=== PATIENT | male | born 1955 | race Caucasian/White ===

== ENCOUNTER 2019-05-08 21:23 | Emergency (ER) | payer MEDICARE ==
--- NOTE | 2019-05-08 21:34 | ED ---
General Adult HPI - General Chief complaint: Seizure Stated complaint: Unresponsive Time Seen by Provider: 05/08/19 21:30 Source: EMS Mode of arrival: EMS Limitations: no limitations - History of Present Illness Initial comments: Romel is a 63yo M presents to the emergency department today via EMS for evaluation of unresponsiveness, hyperglycemia and possible seizure. Upon arrival patient is minimally responsive history was obtained from EMS and the patient's grandson who was staying with the patient. Patient's grandson reported that his grandfather did not take any medications today including his insulin, grandson has a type I diabetic brother so is familiar with patient's need to take insulin 3 times daily. Grandson reported that he witnessed his grandpa having a shaking episode and he couldn't wake him up at which time he ran to the neighbor's house to call 911. EMS arrived on scene found the patient to be minimally responsive but breathing with oxygen saturations in the high 90s, leukocytosis read as high. In route to the hospital patient had a witnessed tonic-clonic seizure with loss of bowel or bladder continence. Per daughter, they moved the patient from [place] to [place] last week so she could keep an eye on his medical care due to his history of non-compliance. - Related Data Allergies Allergy/AdvReac Type Severity Reaction Status Date / Time No Known Allergies Allergy Verified 05/08/19 23:45 Review of Systems ROS Statement: Those systems with pertinent positive or pertinent negative responses have been documented in the HPI. ROS Other: All systems not noted in ROS Statement are negative. Past Medical History Past Medical History: Diabetes Mellitus, Seizure Disorder History of Any Multi-Drug Resistant Organisms: Unobtainable Past Surgical History: Unable to Obtain Past Psychological History: Unable to Obtain Smoking Status: Unknown if ever smoked Past Alcohol Use History: Unable to Obtain Past Drug Use History: Unable to Obtain General Exam - General Exam Comments Initial Comments: Physical Exam GENERAL: Responds to pain with eye opening Dried blood around mouth, incontinent of bowel and bladder HENT: Normocephalic, Atraumatic. Evidence of tongue biting EYES: Right pupil 4mm, left 3mm, reactive EOMI PULMONARY: Unlabored respirations. No audible rales rhonchi or wheezing was noted. CARDIOVASCULAR: RRR ABDOMEN: Obese, Soft and nontender with normal bowel sounds. SKIN: Dry skin, increased skin turgor : Normal external genitalia NEUROLOGIC: A&Ox0 GCS 9 - Eye - 2 - Verbal - 2 - Motor - 5 Moving all extremities spontaneously MUSCULOSKELETAL: No apparent injury PSYCHIATRIC: Unable to assess Limitations: no limitations Course Vital Signs 05/08/19 05/08/19 05/08/19 21:25 22:21 23:04 Temperature 98 F Pulse Rate 108 H 92 93 Respiratory 16 16 18 Rate Blood Pressure 211/122 233/124 209/110 O2 Sat by Pulse 100 98 99 Oximetry 05/08/19 05/08/19 05/09/19 23:24 23:39 00:29 Temperature 98.1 F Pulse Rate 80 78 74 Respiratory 20 16 16 Rate Blood Pressure 198/105 206/101 203/104 O2 Sat by Pulse 98 98 98 Oximetry EKG Findings - EKG Comments: EKG Findings:: EKG was obtained due to tachycardia and new-onset seizure, EKG obtained at 2131, rate is 107 rhythm is sinus tach, leftward axis, normal intervals, RI 150, Carrison a 4, QTC 515, no acute ST elevations or depressions no evidence of acute ischemia or infarction. Medical Decision Making - Medical Decision Making Patient was seen and evaluated, history is obtained from EMS, family members Noncompliant diabetic with hyperglycemia and new onset seizure Plan of care glucose upon arrival >600 Patient initially somewhat agitated with evaluation, fighting IV placement. 1 mg IV Ativan was ordered for agitation the likely postictal state Labs as well as CT imaging was obtained Labs are consistent with DKA with hyperglycemia and high anion gap metabolic acidosis Patient also has a lactic acidosis likely secondary to seizure activity 3 L of IV fluid were bolused, patient's initial potassium was 4.0 therefore nor mal saline with potassium was ordered as maintenance IV insulin ordered for treatment of DKA Patient's mental status improving now awake and alert and oriented to person and place, somewhat confused about events leading up to hospitalization as well as date and time Head CT results with no acute findings Patient care was discussed with admitting physician however given that the patient had a new onset seizure he recommends transfer to a facility with neurology available Patient care was discussed with at [facility] who accepts transfer Patient given Lopressor 5mg IV for hypertension Patient remained hypertensive, patient complaining of diffuse muscle pain, 4 of morphine was ordered and given however patient continued to complain of pain and remained hypertensive Additional 5 mg of IV Lopressor were given for persistent hypertension, patient is on oral oxycodone at home therefore 1 mg IV Dilaudid will be given for pain - Lab Data Result diagrams: 05/08/19 21:32 05/08/19 21:32 Lab Results 05/08/19 05/08/19 05/08/19 Range/Units 21:32 21:32 21:32 WBC 7.2 (3.8-10.6) k/uL RBC 5.36 (4.30-5.90) m/uL Hgb 15.2 (13.0-17.5) gm/dL Hct 48.5 (39.0-53.0) % MCV 90.6 (80.0-100.0) fL MCH 28.3 (25.0-35.0) pg MCHC 31.2 (31.0-37.0) g/dL RDW 13.6 (11.5-15.5) % Plt Count 185 (150-450) k/uL Neutrophils % 70 % Lymphocytes % 21 % Monocytes % 4 % Eosinophils % 2 % Basophils % 0 % Neutrophils # 5.1 (1.3-7.7) k/uL Lymphocytes # 1.5 (1.0-4.8) k/uL Monocytes # 0.3 (0-1.0) k/uL Eosinophils # 0.2 (0-0.7) k/uL Basophils # 0.0 (0-0.2) k/uL Hypochromasia Slight PT 9.6 (9.0-12.0) sec INR 0.9 (<1.2) APTT 23.4 (22.0-30.0) sec Sample Site ABG pH (7.35-7.45) ABG pCO2 (35-45) mmHg ABG pO2 (83-108) mmHg ABG HCO3 (21-25) mmol/L ABG Total CO2 (19-24) mmol/L ABG O2 Saturation (94-97) % ABG Base Excess mmol/L Elan Test FiO2 % Sodium 134 L (137-145) mmol/L Potassium 4.0 (3.5-5.1) mmol/L Chloride 94 L (98-107) mmol/L Carbon Dioxide 18 L (22-30) mmol/L Anion Gap 22 mmol/L BUN 13 (9-20) mg/dL Creatinine 0.79 (0.66-1.25) mg/dL Est GFR (CKD-EPI)AfAm >90 (>60 ml/min/1.73 sqM) Est GFR (CKD-EPI)NonAf >90 (>60 ml/min/1.73 sqM) Glucose 727 H* (74-99) mg/dL POC Glucose (mg/dL) (75-99) mg/dL POC Glu [employer] ID Osmolality 322 H (280-301) mosm/kg Lactic Ac Sepsis Rflx Plasma Lactic Acid Garcia (0.7-2.0) mmol/L Calcium 8.8 (8.4-10.2) mg/dL Magnesium 2.4 H (1.6-2.3) mg/dL Total Bilirubin 0.4 (0.2-1.3) mg/dL AST 29 (17-59) U/L ALT 20 (4-49) U/L Alkaline Phosphatase 162 H (38-126) U/L Creatine Kinase 56 (55-170) U/L Troponin I (0.000-0.034) ng/mL Total Protein 6.8 (6.3-8.2) g/dL Albumin 4.1 (3.5-5.0) g/dL Urine Color Urine Appearance (Clear) Urine pH (5.0-8.0) Ur Specific [place] (1.001-1.035) Urine Protein (Negative) Urine Glucose (UA) (Negative) Urine Ketones (Negative) Urine Blood (Negative) Urine Nitrite (Negative) Urine Bilirubin (Negative) Urine Urobilinogen (<2.0) mg/dL Ur Leukocyte Esterase (Negative) Urine RBC (0-5) /hpf Urine WBC (0-5) /hpf Urine Bacteria (None) /hpf Urine Mucus (None) /hpf 05/08/19 05/08/19 05/08/19 Range/Units 21:32 21:32 21:36 WBC (3.8-10.6) k/uL RBC (4.30-5.90) m/uL Hgb (13.0-17.5) gm/dL Hct (39.0-53.0) % MCV (80.0-100.0) fL MCH (25.0-35.0) pg MCHC (31.0-37.0) g/dL RDW (11.5-15.5) % Plt Count (150-450) k/uL Neutrophils % % Lymphocytes % % Monocytes % % Eosinophils % % Basophils % % Neutrophils # (1.3-7.7) k/uL Lymphocytes # (1.0-4.8) k/uL Monocytes # (0-1.0) k/uL Eosinophils # (0-0.7) k/uL Basophils # (0-0.2) k/uL Hypochromasia PT (9.0-12.0) sec INR (<1.2) APTT (22.0-30.0) sec Sample Site rrad ABG pH 7.24 L (7.35-7.45) ABG pCO2 45 (35-45) mmHg ABG pO2 137 H (83-108) mmHg ABG HCO3 19 L (21-25) mmol/L ABG Total CO2 21 (19-24) mmol/L ABG O2 Saturation 98.0 H (94-97) % ABG Base Excess -7.9 mmol/L Elan Test Yes FiO2 40 % Sodium (137-145) mmol/L Potassium (3.5-5.1) mmol/L Chloride (98-107) mmol/L Carbon Dioxide (22-30) mmol/L Anion Gap mmol/L BUN (9-20) mg/dL Creatinine (0.66-1.25) mg/dL Est GFR (CKD-EPI)AfAm (>60 ml/min/1.73 sqM) Est GFR (CKD-EPI)NonAf (>60 ml/min/1.73 sqM) Glucose (74-99) mg/dL POC Glucose (mg/dL) (75-99) mg/dL POC Glu [employer] ID Osmolality (280-301) mosm/kg Lactic Ac Sepsis Rflx Plasma Lactic Acid Garcia 11.1 H* (0.7-2.0) mmol/L Calcium (8.4-10.2) mg/dL Magnesium (1.6-2.3) mg/dL Total Bilirubin (0.2-1.3) mg/dL AST (17-59) U/L ALT (4-49) U/L Alkaline Phosphatase (38-126) U/L Creatine Kinase (55-170) U/L Troponin I <0.012 (0.000-0.034) ng/mL Total Protein (6.3-8.2) g/dL Albumin (3.5-5.0) g/dL Urine Color Urine Appearance (Clear) Urine pH (5.0-8.0) Ur Specific [place] (1.001-1.035) Urine Protein (Negative) Urine Glucose (UA) (Negative) Urine Ketones (Negative) Urine Blood (Negative) Urine Nitrite (Negative) Urine Bilirubin (Negative) Urine Urobilinogen (<2.0) mg/dL Ur Leukocyte Esterase (Negative) Urine RBC (0-5) /hpf Urine WBC (0-5) /hpf Urine Bacteria (None) /hpf Urine Mucus (None) /hpf 05/08/19 05/08/19 05/08/19 Range/Units 21:37 22:11 22:20 WBC (3.8-10.6) k/uL RBC (4.30-5.90) m/uL Hgb (13.0-17.5) gm/dL Hct (39.0-53.0) % MCV (80.0-100.0) fL MCH (25.0-35.0) pg MCHC (31.0-37.0) g/dL RDW (11.5-15.5) % Plt Count (150-450) k/uL Neutrophils % % Lymphocytes % % Monocytes % % Eosinophils % % Basophils % % Neutrophils # (1.3-7.7) k/uL Lymphocytes # (1.0-4.8) k/uL Monocytes # (0-1.0) k/uL Eosinophils # (0-0.7) k/uL Basophils # (0-0.2) k/uL Hypochromasia PT (9.0-12.0) sec INR (<1.2) APTT (22.0-30.0) sec Sample Site ABG pH (7.35-7.45) ABG pCO2 (35-45) mmHg ABG pO2 (83-108) mmHg ABG HCO3 (21-25) mmol/L ABG Total CO2 (19-24) mmol/L ABG O2 Saturation (94-97) % ABG Base Excess mmol/L Elan Test FiO2 % Sodium (137-145) mmol/L Potassium (3.5-5.1) mmol/L Chloride (98-107) mmol/L Carbon Dioxide (22-30) mmol/L Anion Gap mmol/L BUN (9-20) mg/dL Creatinine (0.66-1.25) mg/dL Est GFR (CKD-EPI)AfAm (>60 ml/min/1.73 sqM) Est GFR (CKD-EPI)NonAf (>60 ml/min/1.73 sqM) Glucose (74-99) mg/dL POC Glucose (mg/dL) >600 H (75-99) mg/dL POC Glu [employer] ID Alecia De La Rosa Osmolality (280-301) mosm/kg Lactic Ac Sepsis Rflx Y Plasma Lactic Acid Garcia (0.7-2.0) mmol/L Calcium (8.4-10.2) mg/dL Magnesium (1.6-2.3) mg/dL Total Bilirubin (0.2-1.3) mg/dL AST (17-59) U/L ALT (4-49) U/L Alkaline Phosphatase (38-126) U/L Creatine Kinase (55-170) U/L Troponin I (0.000-0.034) ng/mL Total Protein (6.3-8.2) g/dL Albumin (3.5-5.0) g/dL Urine Color Colorless Urine Appearance Clear (Clear) Urine pH 6.0 (5.0-8.0) Ur Specific [place] 1.031 (1.001-1.035) Urine Protein 2+ H (Negative) Urine Glucose (UA) 4+ H (Negative) Urine Ketones Trace H (Negative) Urine Blood Negative (Negative) Urine Nitrite Negative (Negative) Urine Bilirubin Negative (Negative) Urine Urobilinogen <2.0 (<2.0) mg/dL Ur Leukocyte Esterase Negative (Negative) Urine RBC 1 (0-5) /hpf Urine WBC 1 (0-5) /hpf Urine Bacteria Rare H (None) /hpf Urine Mucus Rare H (None) /hpf 05/08/19 Range/Units 23:43 WBC (3.8-10.6) k/uL RBC (4.30-5.90) m/uL Hgb (13.0-17.5) gm/dL Hct (39.0-53.0) % MCV (80.0-100.0) fL MCH (25.0-35.0) pg MCHC (31.0-37.0) g/dL RDW (11.5-15.5) % Plt Count (150-450) k/uL Neutrophils % % Lymphocytes % % Monocytes % % Eosinophils % % Basophils % % Neutrophils # (1.3-7.7) k/uL Lymphocytes # (1.0-4.8) k/uL Monocytes # (0-1.0) k/uL Eosinophils # (0-0.7) k/uL Basophils # (0-0.2) k/uL Hypochromasia PT (9.0-12.0) sec INR (<1.2) APTT (22.0-30.0) sec Sample Site ABG pH (7.35-7.45) ABG pCO2 (35-45) mmHg ABG pO2 (83-108) mmHg ABG HCO3 (21-25) mmol/L ABG Total CO2 (19-24) mmol/L ABG O2 Saturation (94-97) % ABG Base Excess mmol/L Elan Test FiO2 % Sodium (137-145) mmol/L Potassium (3.5-5.1) mmol/L Chloride (98-107) mmol/L Carbon Dioxide (22-30) mmol/L Anion Gap mmol/L BUN (9-20) mg/dL Creatinine (0.66-1.25) mg/dL Est GFR (CKD-EPI)AfAm (>60 ml/min/1.73 sqM) Est GFR (CKD-EPI)NonAf (>60 ml/min/1.73 sqM) Glucose (74-99) mg/dL POC Glucose (mg/dL) 448 H (75-99) mg/dL POC Glu [employer] ID Vera Avila Osmolality (280-301) mosm/kg Lactic Ac Sepsis Rflx Plasma Lactic Acid Garcia (0.7-2.0) mmol/L Calcium (8.4-10.2) mg/dL Magnesium (1.6-2.3) mg/dL Total Bilirubin (0.2-1.3) mg/dL AST (17-59) U/L ALT (4-49) U/L Alkaline Phosphatase (38-126) U/L Creatine Kinase (55-170) U/L Troponin I (0.000-0.034) ng/mL Total Protein (6.3-8.2) g/dL Albumin (3.5-5.0) g/dL Urine Color Urine Appearance (Clear) Urine pH (5.0-8.0) Ur Specific [place] (1.001-1.035) Urine Protein (Negative) Urine Glucose (UA) (Negative) Urine Ketones (Negative) Urine Blood (Negative) Urine Nitrite (Negative) Urine Bilirubin (Negative) Urine Urobilinogen (<2.0) mg/dL Ur Leukocyte Esterase (Negative) Urine RBC (0-5) /hpf Urine WBC (0-5) /hpf Urine Bacteria (None) /hpf Urine Mucus (None) /hpf Critical Care Time Critical Care Time: Yes Total Critical Care Time: 30 Critical Care Time: Critical care time was exclusive of separately billable procedures and treating other patients and teaching time. Critical care was necessary to treat or prevent imminent or life-threatening deterioration. Given the critical condition in which the patient arrived, the patient was immediately assessed by myself and the nurse, and cardiac monitoring initiated d ue to the potential for rapid decompensation of the patient's clinical condition. During the course of the patients stay, I spent a considerable amount of time at the bedside performing serial re-evaluations of the patient's hemodynamic and clinical status because of the recognized potential threat to life or limb in this condition. I then had a chance to review not only all of the available current laboratory and radiographic studies obtained today, but I also reviewed old records available to me at the time. Additionally, any ancillary information available including cigarette tester records were reviewed. Sequential vital signs were obtained. Disposition Clinical Impression: DKA (diabetic ketoacidoses), New onset seizure Disposition: OTHER INSTITUTION NOT DEFINED Condition: Serious Is patient prescribed a controlled substance at d/c from ED?: No Referrals: None,Stated [Primary Care Provider] - 1-2 days - Out of Hospital Transfer - Req. Specs Out of Hospital Transfer - Requested Specifics: Other Emergency Center ([facility]
[2019-05-08 21:38] LABS: ABG Base Excess -7.9 mmol/L; ABG HCO3 19 mmol/L (21-25); ABG PCO2 45 mmHg (35-45); ABG PH 7.24 (7.35-7.45); ABG PO2 137 mmHg (83-108); ABG TCO2 21 mmol/L (19-24); Allen Test Performed? Yes
[2019-05-08] MEDS ORDERED: LORazepam 2 MG/ML INJ ONE (21:38)
[2019-05-08 21:40] LABS: Glucose,Whole Blood >600 mg/dL (75-99)
[2019-05-08] MEDS: SODIUM CHLORIDE 0.9% 500 ML 500 ML IV SCH ×2 (21:41→21:42)
[2019-05-08] MEDS ORDERED: LORazepam 2 MG/ML INJ IV STA (21:41)
[2019-05-08] MEDS ORDERED: SODIUM CHLORIDE 0.9% 1,000 ML IV SCH ×2 (21:45→22:30)
[2019-05-08 21:47] LABS: Basophils % (A) 0 %; Eosinophils # (A) 0.2 k/uL (0-0.7); Eosinophils % (A) 2 %; HCT 48.5 % (39.0-53.0); HGB 15.2 gm/dL (13.0-17.5); Hypochromasia Slight; Lymphocytes # (A) 1.5 k/uL (1.0-4.8); Lymphocytes % (A) 21 %; MCH 28.3 pg (25.0-35.0); MCHC 31.2 g/dL (31.0-37.0); MCV 90.6 fL (80.0-100.0); Mean Platelet Volume 9.6; Monocytes # (A) 0.3 k/uL (0-1.0); Monocytes % (A) 4 %; Neutrophils # (A) 5.1 k/uL (1.3-7.7); Neutrophils % (A) 70 %; Platelet Count 185 k/uL (150-450); RBC 5.36 m/uL (4.30-5.90); RDW 13.6 % (11.5-15.5); WBC 7.2 k/uL (3.8-10.6)
[2019-05-08 21:59] LABS: AST 29 U/L (17-59); African American GFR (CKD) >90 (>60 ml/min/1.73 sqM); Albumin 4.1 g/dL (3.5-5.0); Alkaline Phosphatase 162 U/L (38-126); Anion Gap 22 mmol/L; Blood Urea Nitrogen 13 mg/dL (9-20); Calcium 8.8 mg/dL (8.4-10.2); Carbon Dioxide 18 mmol/L (22-30); Chloride 94 mmol/L (98-107); Creatine Kinase 56 U/L (55-170); Magnesium 2.4 mg/dL (1.6-2.3); Non-African American GFR(CKD) >90 (>60 ml/min/1.73 sqM); Sodium 134 mmol/L (137-145); Total Bilirubin 0.4 mg/dL (0.2-1.3); Total Protein 6.8 g/dL (6.3-8.2)
--- NOTE | 2019-05-08 22:02 | XR ---
EXAMINATION TYPE: XR chest 1V portable DATE OF EXAM: 05/08/2019 COMPARISON: None INDICATION: Fever TECHNIQUE: Single frontal view of the chest is obtained. FINDINGS: The heart size is normal. The pulmonary vasculature is normal. The lungs are clear. IMPRESSION: 1. No acute pulmonary process.
[2019-05-08 22:06] LABS: INR 0.9 (<1.2); Partial Thromboplastin Time 23.4 sec (22.0-30.0); Prothrombin Time 9.6 sec (9.0-12.0)
[2019-05-08 22:07] LABS: ALT 20 U/L (4-49)
--- NOTE | 2019-05-08 22:09 | CT ---
EXAMINATION TYPE: CT brain wo con DATE OF EXAM: 05/08/2019 COMPARISON: None HISTORY: Pt found unresponsive, new onset seizure. CT DLP: 1158.4 mGycm Automated exposure control for dose reduction was used. There is cerebral cortical atrophy. There is no mass effect nor midline shift. There is no sign of in tracranial hemorrhage. Calvarium is intact. IMPRESSION: Cerebral atrophy. No acute intracranial abnormality.
[2019-05-08 22:11] LABS: Glucose 727 mg/dL (74-99)
[2019-05-08] MEDS ORDERED: Potassium Replacement Protocol 1 EACH MISC MISCELLANE PRN (22:16)
[2019-05-08] MEDS ORDERED: Magnesium Replacement Protocol 1 EACH MISC MISCELLANE PRN (22:16)
[2019-05-08] MEDS ORDERED: SODIUM CHLORIDE 0.9% 1,500 ML IV ONE (22:19)
[2019-05-08] MEDS ORDERED: D5-0.45% NACL WITH KCL 20MEQ/L 1,000 ML IV SCH (22:30)
[2019-05-08] MEDS ORDERED: 0.9% NACL WITH KCL 40 MEQ/L 1,000 ML IV SCH (22:30)
[2019-05-08] MEDS ORDERED: INSULIN REGULAR 100 UNIT in SODIUM CHLORIDE 0.9% 100 ML IV SCH (22:30)
[2019-05-08 22:34] LABS: Appearance,Urine Clear (Clear); Bacteria,Urine Rare /hpf; Bilirubin,Urine Negative (Negative); Blood,Urine Negative (Negative); Color,Urine Colorless; Glucose,Urine (UA) 4+ (Negative); Ketones,Urine Trace (Negative); Leukocyte Esterase,Urine Negative (Negative); Mucus,Urine Rare /hpf; Nitrite,Urine Negative (Negative); Protein,Urine 2+ (Negative); RBC,Urine 1 /hpf (0-5); Specific Gravity,Urine 1.031 (1.001-1.035); Urobilinogen,Urine <2.0 mg/dL (<2.0); WBC,Urine 1 /hpf (0-5)
[2019-05-08] MEDS ORDERED: METOPROLOL TARTRATE 5 MG/5 ML VIAL IVP STA ×2 (23:10→23:59)
[2019-05-08] MEDS ORDERED: MORPHINE SULFATE 4 MG/ML SYRINGE IVP STA (23:21)
[2019-05-08 23:40] VITALS: RESP 16
[2019-05-08 23:44] LABS: Glucose,Whole Blood 448 mg/dL (75-99)
[2019-05-08] MEDS ORDERED: HYDROmorphone 1 MG/ML 1 ML SYRINGE IVP STA (23:58)
[2019-05-09] MEDS ORDERED: METOPROLOL TARTRATE 5 MG/5 ML VIAL IVP ONE (00:06)
[2019-05-09] MEDS ORDERED: HYDROmorphone 1 MG/ML 1 ML SYRINGE ONE (00:06)
[2019-05-09 00:31] VITALS: BP 203/104; PULSE 74; TEMP 98.1
== END 2019-05-09 00:30 | disposition other institution (70) ==
LOC: EC 21:23
DX: E10.10 Type 1 diabetes mellitus with ketoacidosis without coma (principal); G40.909 Epilepsy, unspecified, not intractable, without status epilepticus; Z91.19 Patient's noncompliance with other medical treatment and regimen; R45.1 Restlessness and agitation; I10 Essential (primary) hypertension; M79.10 Myalgia, unspecified site; Z79.4 Long term (current) use of insulin
CPT/HCPCS: 36415; 36600; 93005; 83930; 80053; 82550; 82805; 83605; 83735; 84484; 85025; 85610; 85730; 81001; 87040; 71045; 70450; 99291; 96365; 96375 ×4; 96376; 96361; J2060; J2270; J1170

== ENCOUNTER 2021-09-13 09:44 | Emergency (ER) | payer MEDICARE ==
[2021-09-13 09:54] VITALS: BP 175/92; PULSE 78; RESP 18; TEMP 98.2
[2021-09-13] MEDS ORDERED: HYDROmorphone 0.5 MG/0.5 ML SYRINGE IVP STA (11:36)
--- NOTE | 2021-09-13 11:42 | ED ---
Extremity Problem HPI - General Chief complaint: Extremity Problem,Nontraumatic Stated complaint: Lt foot Pain Time Seen by Provider: 09/13/21 11:30 Source: patient, family, RN notes reviewed, old records reviewed Mode of arrival: ambulatory Limitations: no limitations - History of Present Illness Initial comments: 65-year-old male presents with complaints of redness and drainage at the amputation site of his first metatarsal left foot for one week. Patient denies any fevers, no nausea vomiting or diarrhea. He states he does have generalized body pain 10 out of 10 they takes pain medication for at home MD Complaint: other (Left great metatarsal amputation site redness and drainage) -: week(s) (1) Location: left, lower extremity (first metatarsal stump) Radiation: none Severity scale (1-10): 10 (Chronic generalized pain, no pain at the first metatarsal) Quality: aching - Related Data Previous Rx's Medication Instructions Recorded Cephalexin [Keflex] 500 mg PO Q6HR 7 Days #28 cap 09/13/21 Allergies Allergy/AdvReac Type Severity Reaction Status Date / Time No Known Allergies Allergy Verified 09/13/21 09:54 Review of Systems ROS Statement: Those systems with pertinent positive or pertinent negative responses have been documented in the HPI. ROS Other: All systems not noted in ROS Statement are negative. Past Medical History Past Medical History: Coronary Artery Disease (CAD), Diabetes Mellitus, Myocardial Infarction (ND), Seizure Disorder History of Any Multi-Drug Resistant Organisms: Unobtainable Past Surgical History: Heart Catheterization With Stent Additional Past Surgical History / Comment(s): shyla big toe removal Past Psychological History: Unable to Obtain Smoking Status: Never smoker Past Alcohol Use History: None Reported Past Drug Use History: None Reported General Exam Limitations: no limitations General appearance: alert, in no apparent distress Neck exam: Absent: tenderness, meningismus Respiratory exam: Absent: respiratory distress, accessory muscle use Cardiovascular Exam: Present: regular rate Extremities exam: Present: other (Bilateral lower extremity swelling are pink warm and dry. There is some discoloration noted bilaterally chronic). Absent: calf tenderness Back exam: Present: normal inspection. Absent: tenderness, CVA tenderness (R), CVA tenderness (L), rash noted Neurological exam: Present: alert, oriented X3 Psychiatric exam: Present: normal affect, normal mood Skin exam: Present: warm, dry. Absent: cyanosis, diaphoretic, petechiae Course Vital Signs 09/13/21 09:51 Temperature 98.2 F Pulse Rate 78 Respiratory 18 Rate Blood Pressure 175/92 O2 Sat by Pulse 97 Oximetry Medical Decision Making - Medical Decision Making Patient presents with left lower extremity stump wound for one week with redness, drainage and foul smell. Positive pedal pulses bilaterally and equal. He denies any fevers. No nausea or vomiting. He does have history of diabetes. No evidence of leukocytosis. No evidence of osteomyelitis. Patient has been afebrile. He was prescribed Keflex and directed to follow up with his primary care doctor next week. Patient and family are agreeable to this plan of care. Case discussed with Dr. Matthew. - Lab Data Result diagrams: 09/13/21 12:19 09/13/21 12:19 Lab Results 09/13/21 09/13/21 Range/Units 12:19 12:19 WBC 6.5 (3.8-10.6) k/uL RBC 3.38 L (4.30-5.90) m/uL Hgb 10.5 L (13.0-17.5) gm/dL Hct 30.3 L (39.0-53.0) % MCV 89.5 (80.0-100.0) fL MCH 31.1 (25.0-35.0) pg MCHC 34.7 (31.0-37.0) g/dL RDW 14.7 (11.5-15.5) % Plt Count 181 (150-450) k/uL MPV 8.7 Neutrophils % 77 % Lymphocytes % 14 % Monocytes % 6 % Eosinophils % 2 % Basophils % 0 % Neutrophils # 5.0 (1.3-7.7) k/uL Lymphocytes # 0.9 L (1.0-4.8) k/uL Monocytes # 0.4 (0-1.0) k/uL Eosinophils # 0.1 (0-0.7) k/uL Basophils # 0.0 (0-0.2) k/uL Poikilocytosis Slight Sodium 140 (137-145) mmol/L Potassium 3.5 (3.5-5.1) mmol/L Chloride 105 (98-107) mmol/L Carbon Dioxide 26 (22-30) mmol/L Anion Gap 9 mmol/L BUN 9 (9-20) mg/dL Creatinine 0.79 (0.66-1.25) mg/dL Est GFR (CKD-EPI)AfAm >90 (>60 ml/min/1.73 sqM) Est GFR (CKD-EPI)NonAf >90 (>60 ml/min/1.73 sqM) Glucose 185 H (74-99) mg/dL Calcium 8.2 L (8.4-10.2) mg/dL Total Bilirubin 0.5 (0.2-1.3) mg/dL AST 19 (17-59) U/L ALT 11 (4-49) U/L Alkaline Phosphatase 100 (38-126) U/L Total Protein 5.7 L (6.3-8.2) g/dL Albumin 3.2 L (3.5-5.0) g/dL Disposition Clinical Impression: Foot ulcer Disposition: HOME SELF-CARE Condition: Good Instructions (If sedation given, give patient instructions): Foot Care for People with Diabetes (ED), Diabetic Foot Ulcers (ED) Additional Instructions: Take antibiotics as prescribed and follow-up with the primary care doctor next week. Return to the emergency room with any new or concerning symptoms including increased pain or fevers. Prescriptions: Cephalexin [Keflex] 500 mg PO Q6HR 7 Days #28 cap Is patient prescribed a controlled substance at d/c from ED?: No Referrals: Yaneth Hernandez NPC [Family Provider] - 1-2 days Time of Disposition: 13:31
[2021-09-13 12:44] LABS: ALT 11 U/L (4-49); AST 19 U/L (17-59); African American GFR (CKD) >90 (>60 ml/min/1.73 sqM); Albumin 3.2 g/dL (3.5-5.0); Alkaline Phosphatase 100 U/L (38-126); Anion Gap 9 mmol/L; Blood Urea Nitrogen 9 mg/dL (9-20); Calcium 8.2 mg/dL (8.4-10.2); Carbon Dioxide 26 mmol/L (22-30); Chloride 105 mmol/L (98-107); Glucose 185 mg/dL (74-99); Non-African American GFR(CKD) >90 (>60 ml/min/1.73 sqM); Potassium 3.5 mmol/L (3.5-5.1); Sodium 140 mmol/L (137-145); Total Bilirubin 0.5 mg/dL (0.2-1.3); Total Protein 5.7 g/dL (6.3-8.2)
[2021-09-13 12:50] LABS: Basophils % (A) 0 %; Eosinophils # (A) 0.1 k/uL (0-0.7); Eosinophils % (A) 2 %; HCT 30.3 % (39.0-53.0); HGB 10.5 gm/dL (13.0-17.5); Lymphocytes # (A) 0.9 k/uL (1.0-4.8); Lymphocytes % (A) 14 %; MCH 31.1 pg (25.0-35.0); MCHC 34.7 g/dL (31.0-37.0); MCV 89.5 fL (80.0-100.0); Mean Platelet Volume 8.7; Monocytes # (A) 0.4 k/uL (0-1.0); Monocytes % (A) 6 %; Neutrophils % (A) 77 %; Platelet Count 181 k/uL (150-450); Poikilocytosis Slight; RBC 3.38 m/uL (4.30-5.90); RDW 14.7 % (11.5-15.5); WBC 6.5 k/uL (3.8-10.6)
--- NOTE | 2021-09-13 13:18 | XR ---
EXAMINATION TYPE: XR foot complete LT DATE OF EXAM: 09/13/2021 CLINICAL HISTORY: pain TECHNIQUE: Frontal, lateral and oblique images of the left foot are obtained. COMPARISON: None. FINDINGS: There is no acute fracture/dislocation evident. The joint spaces appear within normal becker its. There appears to be soft tissue ulceration at the amputation stump left great toe. I do not see definite bony destructive process to suggest osteomyelitis at this time. Symptoms persist consider a WBC scan. Healed fracture second metatarsal neck. IMPRESSION: There is no acute fracture or dislocation. ICD 10 NO FRACTURE, INITIAL EVALUATION
== END 2021-09-13 13:57 | disposition home or self-care (01) ==
LOC: EC 09:44
DX: L97.529 Non-pressure chronic ulcer of other part of left foot with unspecified severity (principal); E11.9 Type 2 diabetes mellitus without complications; I25.2 Old myocardial infarction
CPT/HCPCS: 36415; 80053; 85025; 87040; 87070; 87205; 73630; 99283; 96374; J1170

== ENCOUNTER → 2022-03-12 | Outpatient (CLI) | payer MEDICARE | END | disposition home or self-care (01) | LOC: RADUSWWP 14:25 | PROVIDERS: ATTEND Thoracic Surgery (Cardiothoracic Vascular Surgery) | DX: Z53.9 Procedure and treatment not carried out, unspecified reason (principal) ==

== ENCOUNTER 2022-06-08 09:24 | Emergency (ER) | payer MEDICARE ==
[2022-06-08] MEDS ORDERED: SODIUM CHLORIDE 0.9% 500 ML 500 ML IV STA (09:33)
[2022-06-08 09:36] VITALS: TEMP 97.8
--- NOTE | 2022-06-08 09:43 | ED ---
General Adult HPI - General Chief complaint: Fall Stated complaint: diabetic issues, fall Time Seen by Provider: 06/08/22 09:30 Source: patient, EMS, RN notes reviewed, old records reviewed Mode of arrival: EMS Limitations: no limitations - History of Present Illness Initial comments: This is a 66-year-old male who presents emergency Department with a past medical history significant for amputated toes and has history of diabetes. Patient states he also has bilateral ankle issues. Patient states she is supposed to use a walker but this morning his walk was too far away as we got up and tried to go out the door and fell back hitting his head on a cabinet and then hit his head on the floor. Patient denies any loss of consciousness. Patient denies any headache currently. Patient denies any numbness weakness. Patient denies any neck pain. Patient states he was not having any chest pain difficulty breathing or shortness of breath per patient states he just felt his legs go weak and he lost his balance. Patient does agree that he should probably using his walker. Patient denies any recent fever chills or cough per patient has abdominal pain patient denies nausea vomiting diarrhea. - Related Data Previous Rx's Medication Instructions Recorded Cephalexin [Keflex] 500 mg PO Q6HR 7 Days #28 cap 09/13/21 Allergies Allergy/AdvReac Type Severity Reaction Status Date / Time No Known Allergies Allergy Verified 06/08/22 09:30 Review of Systems ROS Statement: Those systems with pertinent positive or pertinent negative responses have been documented in the HPI. ROS Other: All systems not noted in ROS Statement are negative. Past Medical History Past Medical History: Coronary Artery Disease (CAD), Diabetes Mellitus, Myocardial Infarction (OR), Seizure Disorder History of Any Multi-Drug Resistant Organisms: Unobtainable Past Surgical History: Heart Catheterization With Stent Additional Past Surgical History / Comment(s): shyla big toe removal Past Psychological History: Unable to Obtain Smoking Status: Never smoker Past Alcohol Use History: None Reported Past Drug Use History: None Reported General Exam - General Exam Comments Initial Comments: GENERAL: Patient is well-developed and well-nourished. Patient is nontoxic and well- hydrated and is in no acute distress. No signs of any abrasions or trauma to the head. ENT: Neck is soft and supple. No significant lymphadenopathy is noted. Oropharynx is clear. Moist mucous membranes. Neck has full range of motion without eliciting any pain. No spinous process tenderness on palpation EYES: The sclera were anicteric and conjunctiva were pink and moist. Extraocular movements were intact and pupils were equal round and reactive to light. Eyelids were unremarkable. PULMONARY: Unlabored respirations. Good breath sounds bilaterally. No audible rales rhonchi or wheezing was noted. CARDIOVASCULAR: There is a regular rate and rhythm without any murmurs gallops or rubs. ABDOMEN: Soft and nontender with normal bowel sounds. SKIN: Skin is clear with no lesions or rashes and otherwise unremarkable. NEUROLOGIC: Patient is alert and oriented x3. Cranial nerves II through XII are grossly intact. Motor and sensory are also intact. Normal speech, volume and content. Symmetrical smile. MUSCULOSKELETAL: Normal extremities with adequate strength and full range of motion. Patient has ankles which appear to be deformed which he states is chronic. LYMPHATICS: No significant lymphadenopathy is noted PSYCHIATRIC: Normal psychiatric evaluation. Limitations: no limitations Course Vital Signs 06/08/22 06/08/22 09:30 12:41 Temperature 97.8 F Pulse Rate 71 89 Respiratory 18 16 Rate Blood Pressure 130/73 125/81 O2 Sat by Pulse 100 99 Oximetry Medical Decision Making - Medical Decision Making EKG was interpreted by myself. EKG shows sinus rhythm at 60 bpm SD interval 172 QRS is 95 Q-T intervals 4:30 QTC is 452. Patient's EKG shows no ST segment elevation or depression. Was pt. sent in by a medical professional or institution (, [facility], DEPUTY CITY CLERK, urgent care, hospital, or alf...) When possible be specific @ -No Did you speak to anyone other than the patient for history (EMS, parent, family, police, friend...)? What history was obtained from this source @ -No Did you review nursing and triage notes (agree or disagree)? Why? @ -I reviewed and agree with nursing and triage notes Were old charts reviewed (outside hosp., previous admission, EMS record, old EKG, old radiological studies, urgent care reports/EKG's, alf records)? Report findings @ -I reviewed prior lab work and compared to today's Differential Diagnosis (chest pain, altered mental status, abdominal pain women, abdominal pain men, vaginal bleeding, weakness, fever, dyspnea, syncope, headache, dizziness, GI bleed, back pain, seizure, CVA, palpatations, mental health, musculoskeletal)? @ -Differential Weakness: Hypoglycemia, shock, sepsis, hyponatremia, anemia, infection, OR, ETOH, adverse medicine reaction, overdose, stroke, this is not meant to be an all-inclusive list. EKG interpreted by me (3pts min.). @ -As above X-rays interpreted by me (1pt min.). @ -Chest x-ray was interpreted by myself shows no acute abnormality. CT interpreted by me (1pt min.). @ -CT of the brain was performed by myself shows no acute abnormality. CT of the C-spine was interpreted by myself shows no acute abnormality. U/S interpreted by me (1pt. min.). @ -None done What testing was considered but not performed or refused? (CT, X-rays, U/S, labs)? Why? @ -None What meds were considered but not given or refused? Why? @ -None Did you discuss the management of the patient with other professionals (professionals i.e. , PA, DEPUTY CITY CLERK, lab, RT, psych nurse, social security assessor, supervisor electronic coils, teacher, safety security officer, caseworker protective services)? Give summary @ -No Was smoking cessation discussed for >3mins.? @ -No Was critical care preformed (if so, how long)? @ -No Were there social determinants of health that impacted care today? How? (Homelessness, low income, unemployed, alcoholism, drug addiction, transportation, low edu. Level, literacy, decrease access to med. care, senior living, rehab)? @ -No Was there de-escalation of care discussed even if they declined (Discuss DNR or withdrawal of care, Hospice)? DNR status @ -No What co-morbidities impacted this encounter? (DM, HTN, Smoking, COPD, CAD, Cancer, CVA, ARF, Chemo, Hep., AIDS, mental health diagnosis, sleep apnea, morbid obesity)? @ -None Was patient admitted / discharged? Hospital course, mention meds given and route, prescriptions, significant lab abnormalities, going to OR and other p ertinent info. @ -Patient was evaluated with radiological studies they were all negative. I also did lab work they were negative patient refused to give us a urine. Patient refused to be catheterized. Patient was feeling better and not as weak and stated he would start using his walker so patient will be discharged home. Undiagnosed new problem with uncertain prognosis? @ -No Drug Therapy requiring intensive monitoring for toxicity (Heparin, Nitro, Insulin, Cardizem)? @ -No Were any procedures done? @ -No Diagnosis/symptom? @ -Weakness Acute, or Chronic, or Acute on Chronic? @ -Acute Uncomplicated (without systemic symptoms) or Complicated (systemic symptoms)? @ -Complicated Side effects of treatment? @ -No Exacerbation, Progression, or Severe Exacerbation? @ -No Poses a threat to life or bodily function? How? (Chest pain, USA, OR, pneumonia, PE, COPD, DKA, ARF, appy, cholecystitis, CVA, Diverticulitis, Homicidal, Suicidal, threat to staff... and all critical care pts) @ -No Diagnosis/symptom? @ -Fall Acute, or Chronic, or Acute on Chronic? @ -Acute Uncomplicated (without systemic symptoms) or Complicated (systemic symptoms)? @ -Uncomplicated Side effects of treatment? @ -none Exacerbation, Progression, or Severe Exacerbation] @ -no Poses a threat to life or bodily function? @ -no Patient was asked on multiple occasions to give us here he refused and we also asked him multiple case is to catheterize him so he can get a urine he refused and was comfortable being discharged home - Lab Data Result diagrams: 06/08/22 09:51 06/08/22 09:51 Lab Results 06/08/22 06/08/22 06/08/22 Range/Units 09:51 09:51 09:51 WBC 4.1 (3.8-10.6) k/uL RBC 4.28 L (4.30-5.90) m/uL Hgb 12.5 L (13.0-17.5) gm/dL Hct 37.0 L (39.0-53.0) % MCV 86.6 (80.0-100.0) fL MCH 29.3 (25.0-35.0) pg MCHC 33.8 (31.0-37.0) g/dL RDW 14.1 (11.5-15.5) % Plt Count 144 L (150-450) k/uL MPV 9.7 Neutrophils % 60 % Lymphocytes % 23 % Monocytes % 10 % Eosinophils % 2 % Basophils % 0 % Neutrophils # 2.5 (1.3-7.7) k/uL Lymphocytes # 1.0 (1.0-4.8) k/uL Monocytes # 0.4 (0-1.0) k/uL Eosinophils # 0.1 (0-0.7) k/uL Basophils # 0.0 (0-0.2) k/uL PT 11.1 (9.0-12.0) sec INR 1.1 (<1.2) APTT 25.1 (22.0-30.0) sec Sodium 139 (137-145) mmol/L Potassium 3.8 (3.5-5.1) mmol/L Chloride 103 (98-107) mmol/L Carbon Dioxide 24 (22-30) mmol/L Anion Gap 12 mmol/L BUN 29 H (9-20) mg/dL Creatinine 1.39 H (0.66-1.25) mg/dL Est GFR (CKD-EPI)AfAm 61 (>60 ml/min/1.73 sqM) Est GFR (CKD-EPI)NonAf 53 (>60 ml/min/1.73 sqM) Glucose 112 H (74-99) mg/dL Plasma Lactic Acid Garcia (0.7-2.0) mmol/L Calcium 8.7 (8.4-10.2) mg/dL Magnesium 1.9 (1.6-2.3) mg/dL Total Bilirubin 0.6 (0.2-1.3) mg/dL AST 31 (17-59) U/L ALT 23 (4-49) U/L Alkaline Phosphatase 96 (38-126) U/L Troponin I (0.000-0.034) ng/mL Total Protein 6.7 (6.3-8.2) g/dL Albumin 3.8 (3.5-5.0) g/dL 06/08/22 06/08/22 Range/Units 09:51 09:51 WBC (3.8-10.6) k/uL RBC (4.30-5.90) m/uL Hgb (13.0-17.5) gm/dL Hct (39.0-53.0) % MCV (80.0-100.0) fL MCH (25.0-35.0) pg MCHC (31.0-37.0) g/dL RDW (11.5-15.5) % Plt Count (150-450) k/uL MPV Neutrophils % % Lymphocytes % % Monocytes % % Eosinophils % % Basophils % % Neutrophils # (1.3-7.7) k/uL Lymphocytes # (1.0-4.8) k/uL Monocytes # (0-1.0) k/uL Eosinophils # (0-0.7) k/uL Basophils # (0-0.2) k/uL PT (9.0-12.0) sec INR (<1.2) APTT (22.0-30.0) sec Sodium (137-145) mmol/L Potassium (3.5-5.1) mmol/L Chloride (98-107) mmol/L Carbon Dioxide (22-30) mmol/L Anion Gap mmol/L BUN (9-20) mg/dL Creatinine (0.66-1.25) mg/dL Est GFR (CKD-EPI)AfAm (>60 ml/min/1.73 sqM) Est GFR (CKD-EPI)NonAf (>60 ml/min/1.73 sqM) Glucose (74-99) mg/dL Plasma Lactic Acid Garcia 1.4 (0.7-2.0) mmol/L Calcium (8.4-10.2) mg/dL Magnesium (1.6-2.3) mg/dL Total Bilirubin (0.2-1.3) mg/dL AST (17-59) U/L ALT (4-49) U/L Alkaline Phosphatase (38-126) U/L Troponin I <0.012 (0.000-0.034) ng/mL Total Protein (6.3-8.2) g/dL Albumin (3.5-5.0) g/dL Disposition Clinical Impression: Fall, Weakness Disposition: HOME SELF-CARE Instructions (If sedation given, give patient instructions): Weakness (ED), Fall Prevention (ED) Is patient prescribed a controlled substance at d/c from ED?: No Referrals: Josie Matthew DO [Primary Care Provider] - 1-2 days Time of Disposition: 11:45
[2022-06-08 10:03] LABS: Basophils % (A) 0 %; Eosinophils # (A) 0.1 k/uL (0-0.7); Eosinophils % (A) 2 %; HGB 12.5 gm/dL (13.0-17.5); Lymphocytes % (A) 23 %; MCH 29.3 pg (25.0-35.0); MCHC 33.8 g/dL (31.0-37.0); MCV 86.6 fL (80.0-100.0); Mean Platelet Volume 9.7; Monocytes # (A) 0.4 k/uL (0-1.0); Monocytes % (A) 10 %; Neutrophils # (A) 2.5 k/uL (1.3-7.7); Neutrophils % (A) 60 %; Platelet Count 144 k/uL (150-450); RBC 4.28 m/uL (4.30-5.90); RDW 14.1 % (11.5-15.5); WBC 4.1 k/uL (3.8-10.6)
--- NOTE | 2022-06-08 10:15 | XR ---
EXAMINATION TYPE: XR chest 2V DATE OF EXAM: 06/08/2022 COMPARISON: Chest x-ray May 08, 2019 HISTORY: Weakness. TECHNIQUE: Frontal and lateral views of the chest are obtained. FINDINGS: There is no suspicious new focal air space opacity, pleural effusion, or pneumothorax seen . The cardiac silhouette size is stable and within normal limits. The osseous structures are intac t. IMPRESSION: No acute cardiopulmonary process. No significant change from prior.
[2022-06-08 10:20] LABS: Albumin 3.8 g/dL (3.5-5.0); Calcium 8.7 mg/dL (8.4-10.2); Magnesium 1.9 mg/dL (1.6-2.3); Potassium 3.8 mmol/L (3.5-5.1); Total Bilirubin 0.6 mg/dL (0.2-1.3); Total Protein 6.7 g/dL (6.3-8.2)
--- NOTE | 2022-06-08 10:20 | CT ---
EXAMINATION TYPE: CT cervical spine wo con DATE OF EXAM: 06/08/2022 COMPARISON: NONE HISTORY: Neck pain CT DLP: 470.9 mGycm. Automated Exposure Control for Dose Reduction was Utilized. TECHNIQUE: CT scan of the cervical spine is obtained without contrast, axial images are obtained, sa gittal and coronal reformatted images are also reviewed. FINDINGS: Cervical spine is visualized in its entirety from C1 through upper thoracic levels, demonst rates straightened alignment . There is grade 1 retrolisthesis C6 on C7. Prevertebral soft tissue ap pears within normal limits. The C1-C2 articulation is within normal limits on the coronal images. Ve rtebral body heights are maintained. Mild disc space narrowing with large anterior osteophytes at C5- C6 level. There is ossific fusion at the C6-C7 level. Review of axial images shows uncovertebral facet degenerative change at C3-C4 level causing moderate left-sided neural foraminal narrowing. Some bony projections of the anterior thecal sac at C5 and at C6 vertebral body levels on sagittal and axial images. Thyroid gland appears within normal limits. Angie ng apices show no pneumothorax.. IMPRESSION: Chronic changes as noted above. No acute findings are seen.
[2022-06-08 10:49] LABS: INR 1.1 (<1.2); Partial Thromboplastin Time 25.1 sec (22.0-30.0); Prothrombin Time 11.1 sec (9.0-12.0)
--- NOTE | 2022-06-08 11:57 | CT ---
EXAMINATION TYPE: CT brain wo con DATE OF EXAM: 06/08/2022 HISTORY: Leg weakness, fall CT DLP: 1141.4 mGycm. Automated Exposure Control for Dose Reduction was Utilized. TECHNIQUE: CT scan of the head is performed without contrast. COMPARISON: CT brain May 08, 2019. FINDINGS: There is no acute intracranial hemorrhage or midline shift identified. There is mild-to-m oderate diffuse ventricular and sulcal prominence redemonstrated. There is moderate to advanced low- attenuation in the deep and periventricular white matter more prominent from prior. There is some muc osal thickening in the bilateral maxillary along with sphenoid and ethmoid sinuses and patchy opacifi cation in the ethmoid sinuses. Globes are intact bilaterally. The calvarium is intact. IMPRESSION: No acute intracranial hemorrhage or midline shift. There is mild to moderate diffuse ce rebral atrophy and moderate to advanced probable chronic small vessel ischemic change noted. The latt er shows interval progression from most recent CT.
[2022-06-08 12:42] VITALS: BP 125/81; PULSE 89; RESP 16
== END 2022-06-08 12:42 | disposition home or self-care (01) ==
LOC: EC 09:24
DX: S09.90XA Unspecified injury of head, initial encounter (principal); R53.1 Weakness; I25.10 Atherosclerotic heart disease of native coronary artery without angina pectoris; E11.9 Type 2 diabetes mellitus without complications; I25.2 Old myocardial infarction; W22.8XXA Striking against or struck by other objects, initial encounter
CPT/HCPCS: 36415; 70450; 71046; 72125; 80053; 83605; 83735; 84484; 85025; 85610; 85730; 93005; 99285

== ENCOUNTER 2023-09-07 22:56 | Inpatient (IN) | payer MEDICARE ==
[2023-09-07 23:17] LABS: Glucose,Whole Blood >600 mg/dL (70-110)
--- NOTE | 2023-09-07 23:23 | ED ---
Recheck HPI - General Stated Complaint: Hyperglycemic, Kidney Problems Time Seen by Provider: 09/07/23 23:19 Source: RN notes reviewed, old records reviewed, Caregiver Mode of arrival: EMS Limitations: altered mental status, physical limitation - History of Present Illness Initial Comments: This is a 67-year-old male presenting as a transfer patient accepted as an inpatient on sedation on Levophed. Patient has remained relatively unresponsive per EMS and transport, per transferring physician patient has significant acidosis diabetic complicated by altered mental status and obtundation, patient was intubated for airway protection and unresponsiveness with hypoxia MD Complaint: abnormal lab (Severely elevated blood sugar significantly low pH) Symptoms Since Prior Visit: no new symptoms Associated Symptoms: none Treatments Prior to Arrival: other (0) - Related Data Home Medications Medication Instructions Recorded Confirmed Ascorbic Acid [Vitamin C] 500 mg PO BID 09/08/23 09/08/23 Atorvastatin [Lipitor] 40 mg PO HS 09/08/23 09/08/23 Cetirizine HCl [Zyrtec] 10 mg PO HS 09/08/23 09/08/23 Cholecalciferol (Vitamin D3) 1,250 mcg PO WEEKLY 09/08/23 09/08/23 [Vitamin D3 (1250 Mcg = 50,000 Iu)] Clopidogrel [Plavix] 75 mg PO DAILY 09/08/23 09/08/23 Empagliflozin [Jardiance] 10 mg PO DAILY 09/08/23 09/08/23 Escitalopram [Lexapro] 10 mg PO DAILY 09/08/23 09/08/23 Furosemide [Lasix] 20 mg PO DAILY 09/08/23 09/08/23 Insulin Glargine,Hum.rec.anlog 27 units SQ HS 09/08/23 09/08/23 [Lantus Solostar Pen] Isosorbide Mononitrate ER [Imdur] 30 mg PO DAILY 09/08/23 09/08/23 Potassium Chloride [Klor-Con M10] 10 meq PO DAILY 09/08/23 09/08/23 amLODIPine [Norvasc] 5 mg PO DAILY 09/08/23 09/08/23 carvediloL [Coreg] 25 mg PO BID 09/08/23 09/08/23 hydrALAZINE HCL [Apresoline] 50 mg PO TID 09/08/23 09/08/23 levETIRAcetam [Keppra] 500 mg PO Q12HR 09/08/23 09/08/23 lisinopriL [Lisinopril] 40 mg PO HS 09/08/23 09/08/23 metFORMIN HCL ER [Glucophage XR] 1,000 mg PO W/SUPPER 09/08/23 09/08/23 tiZANidine [Zanaflex] 4 mg PO TID 09/08/23 09/08/23 traZODone HCL [Desyrel] 50 mg PO HS 09/08/23 09/08/23 Allergies Allergy/AdvReac Type Severity Reaction Status Date / Time No Known Allergies Allergy Verified 09/08/23 10:10 Review of Systems ROS Statement: Those systems with pertinent positive or pertinent negative responses have been documented in the HPI. ROS Other: All systems not noted in ROS Statement are negative. Past Medical History Past Medical History: Coronary Artery Disease (CAD), Diabetes Mellitus, Myocardial Infarction (NV), Seizure Disorder History of Any Multi-Drug Resistant Organisms: Unobtainable Past Surgical History: Heart Catheterization With Stent Additional Past Surgical History / Comment(s): shyla big toe removal Past Psychological History: Unable to Obtain Smoking Status: Never smoker Past Alcohol Use History: None Reported Past Drug Use History: None Reported General Exam General appearance: alert, in no apparent distress Head exam: Present: atraumatic, normocephalic, normal inspection Eye exam: Present: normal appearance, PERRL, EOMI. Absent: scleral icterus, conjunctival injection, periorbital swelling ENT exam: Present: normal exam, mucous membranes moist Neck exam: Present: normal inspection. Absent: tenderness, meningismus, lymphadenopathy Respiratory exam: Present: normal lung sounds bilaterally. Absent: respiratory distress, wheezes, rales, rhonchi, stridor Cardiovascular Exam: Present: regular rate, normal rhythm, normal heart sounds. Absent: systolic murmur, diastolic murmur, rubs, gallop, clicks GI/Abdominal exam: Present: soft, normal bowel sounds. Absent: distended, tenderness, guarding, rebound, rigid Extremities exam: Present: normal inspection, full ROM, normal capillary refill. Absent: tenderness, pedal edema, joint swelling, calf tenderness Back exam: Present: normal inspection Neurological exam: Present: alert, oriented X3, CN II-XII intact Psychiatric exam: Present: normal affect, normal mood Skin exam: Present: warm, dry, intact, normal color. Absent: rash Course Vital Signs 09/07/23 09/07/23 09/07/23 23:09 23:10 23:15 Temperature 97.6 F Pulse Rate 67 67 66 Respiratory 22 18 22 Rate Blood Pressure 76/49 76/49 73/49 O2 Sat by Pulse 97 99 99 Oximetry Fraction of 35 Inspired Oxygen (FIO2) 09/07/23 09/07/23 09/07/23 23:20 23:25 23:30 Temperature Pulse Rate 67 66 66 Respiratory 22 22 22 Rate Blood Pressure 59/44 80/56 77/53 O2 Sat by Pulse 99 99 99 Oximetry Fraction of Inspired Oxygen (FIO2) 09/07/23 09/07/23 09/08/23 23:35 23:40 00:23 Temperature Pulse Rate 65 65 Respiratory 22 22 22 Rate Blood Pressure 78/48 79/53 O2 Sat by Pulse 99 99 Oximetry Fraction of Inspired Oxygen (FIO2) 09/08/23 09/08/23 09/08/23 00:25 00:30 00:35 Temperature Pulse Rate 64 65 65 Respiratory 22 20 22 Rate Blood Pressure 76/50 74/51 76/50 O2 Sat by Pulse 100 100 100 Oximetry Fraction of Inspired Oxygen (FIO2) 09/08/23 09/08/23 09/08/23 00:40 00:45 00:50 Temperature Pulse Rate 65 65 66 Respiratory 18 18 18 Rate Blood Pressure 78/50 79/52 81/51 O2 Sat by Pulse 100 100 100 Oximetry Fraction of Inspired Oxygen (FIO2) 09/08/23 09/08/23 09/08/23 00:55 01:00 01:05 Temperature Pulse Rate 66 66 66 Respiratory 16 17 18 Rate Blood Pressure 88/56 118/66 97/57 O2 Sat by Pulse 100 99 100 Oximetry Fraction of Inspired Oxygen (FIO2) 09/08/23 09/08/23 09/08/23 01:10 01:15 01:25 Temperature 89.6 F L Pulse Rate 68 68 113 H Respiratory 14 20 21 Rate Blood Pressure 94/57 96/54 98/33 O2 Sat by Pulse 100 99 96 Oximetry Fraction of Inspired Oxygen (FIO2) 09/08/23 09/08/23 01:30 01:35 Temperature 89.6 F L 89.6 F L Pulse Rate 109 H 113 H Respiratory 20 20 Rate Blood Pressure 81/50 99/33 O2 Sat by Pulse 97 Oximetry Fraction of 30 Inspired Oxygen (FIO2) - Reevaluation(s) Reevaluation #1: 09/07/23 23:23 Medical records reviewed Reevaluation #2: 09/07/23 23:23 Patient symptoms unchanged Reevaluation #3: Patient informed of results questions answered Reevaluation #4: 09/07/23 23:23 Was pt. sent in by a medical professional or institution (RONNA Arredondo, ALCOHOL LAW ENFORCEMENT AGENT, urgent care, hospital, or custodial...) When possible be specific @ -no Did you speak to anyone other than the patient for history (EMS, parent, family, police, friend...)? What history was obtained from this source @ -no Did you review nursing and triage notes (agree or disagree)? Why? @ -agree Are old charts reviewed (outside hosp., previous admission, EMS record, old EKG, old radiological studies, urgent care reports/EKG's, custodial records)? Report findings @ -yes Differential Diagnosis (chest pain, altered mental status, abdominal pain women, abdominal pain men, vaginal bleeding, weakness, fever, dyspnea, syncope, headache, dizziness, GI bleed, back pain, seizure, CVA, palpatations, mental health, musculoskeletal)? @ -prior EKG interpreted by me (3pts min.). @ -yes X-rays interpreted by me (1pt min.). @ -yes negative for acute disease CT interpreted by me (1pt min.). @ -no U/S interpreted by me (1pt. min.). @ -no What testing was considered but not performed or refused? (CT, X-rays, U/S, labs)? Why? @ -none What meds were considered but not given or refused? Why? @ -none Did you discuss the management of the patient with other professionals (professionals i.e. RONNA Arredondo, ALCOHOL LAW ENFORCEMENT AGENT, lab, RT, psych nurse, high school social studies teacher, churn driller, teacher, air support control officer, case resource manager)? Give summary @ -no Was smoking cessation discussed for >3mins.? @ -no Was critical care preformed (if so, how long)? @ -yes31 Were there social determinants of health that impacted care today? How? (Homelessness, low income, unemployed, alcoholism, drug addiction, transportation, low edu. Level, literacy, decrease access to med. care, alf, rehab)? @ -none Was there de-escalation of care discussed even if they declined (Discuss DNR or withdrawal of care, Hospice)? DNR status @ -no What co-morbidities impacted this encounter? (DM, HTN, Smoking, COPD, CAD, Cancer, CVA, ARF, Chemo, Hep., AIDS, mental health diagnosis, sleep apnea, morbid obesity)? @ -none Was patient admitted / discharged? Hospital course, mention meds given and route, prescriptions, significant lab abnormalities, going to OR and other pertinent info. @ -67 male to ER for evaluation accepted in transfer in significant distress intubation with severe acidosis hypoxia and hypotension Admitted Undiagnosed new problem with uncertain prognosis? @ -no Drug Therapy requiring intensive monitoring for toxicity (Heparin, Nitro, Insulin, Cardizem)? @ -no Were any procedures done? @ -no Diagnosis/symptom? @ -Respiratory failure severe acidosis sepsis pneumonia hypoxia and hypotension Acute, or Chronic, or Acute on Chronic? @ -Acute Uncomplicated (without systemic symptoms) or Complicated (systemic symptoms)? @ -Complicated Side effects of treatment? @ -no Exacerbation, Progression, or Severe Exacerbation? @ -exacerbation Poses a threat to life or bodily function? How? (Chest pain, USA, NV, pneumonia, PE, COPD, DKA, ARF, appy, cholecystitis, CVA, Diverticulitis, Homicidal, Suicidal, threat to staff... and all critical care pts) @ -yes severe sepsis Reevaluation #5: Differential Altered Mental Status: Hypoglycemia, DKA, hypercapnia, ETOH, overdose, CO poisoning, trauma, myxedema coma, HTN encephalopathy, infection, encephalitis, psychosis, intercranial hemorrhage, hepatic encephalopathy, meningitis, CVA, this is not meant to be an all-inclusive list - Consultations Consultation #1: Spoke with ICU who is okay for admission Procedures - Central Line Placement Right IJ Consent Obtained: verbal consent Patient Placed on Monitor/Pulse Ox: Yes Ultrasound Used for Placement: Yes Central Line Lumen Inserted: triple Bloods Obtained for Lab: Yes Central Line Position: good blood return, all ports aspirated, flushed, capped Post Procedure X-Ray: tip of catheter in good position Patient Tolerated Procedure: well Complications: none - Intubation Laryngoscope: Ernestina Size: 4 ET Tube Size: 8 ET Tube Uncuffed: Yes Tube Secured Location: teeth Tube Placement Confirmation: equal breath sounds bilaterally, no breath sounds over epigastrium Patient Tolerated Procedure: well Intubation Complications: none (ET tube ET tube was thoroughly evaluated here in the emergency department without complication) Medical Decision Making - Lab Data Result diagrams: 09/12/23 05:00 09/12/23 05:00 Lab Results 09/07/23 09/07/23 09/07/23 Range/Units 23:05 23:15 23:15 WBC 8.8 (3.8-10.6) k/uL RBC 4.93 (4.30-5.90) m/uL Hgb 14.5 (13.0-17.5) gm/dL Hct 50.3 (39.0-53.0) % MCV 102.2 H (80.0-100.0) fL MCH 29.5 (25.0-35.0) pg MCHC 28.9 L (31.0-37.0) g/dL RDW 14.3 (11.5-15.5) % Plt Count 136 L (150-450) k/uL MPV 11.8 Neutrophils % 89 % Lymphocytes % 6 % Monocytes % 5 % Eosinophils % 0 % Basophils % 0 % Neutrophils # 7.8 H (1.3-7.7) k/uL Lymphocytes # 0.5 L (1.0-4.8) k/uL Monocytes # 0.4 (0-1.0) k/uL Eosinophils # 0.0 (0-0.7) k/uL Basophils # 0.0 (0-0.2) k/uL Hypochromasia Marked Macrocytosis Slight PT 11.7 (10.0-12.5) sec INR 1.1 (<1.2) APTT 24.4 (22.0-30.0) sec D-Dimer 2.03 H (<0.60) mg/L FEU Sample Site ABG pH (7.35-7.45) ABG pCO2 (35-45) mmHg ABG pO2 (83-108) mmHg ABG HCO3 (21-25) mmol/L ABG Total CO2 (19-24) mmol/L ABG O2 Saturation (94-97) % ABG Base Excess mmol/L Elan Test FiO2 % Sodium (137-145) mmol/L Potassium (3.5-5.1) mmol/L Chloride (98-107) mmol/L Carbon Dioxide (22-30) mmol/L Anion Gap mmol/L BUN (9-20) mg/dL Creatinine (0.66-1.25) mg/dL Est GFR (CKD-EPI)AfAm (>60 ml/min/1.73 sqM) Est GFR (CKD-EPI)NonAf (>60 ml/min/1.73 sqM) Glucose (74-99) mg/dL POC Glucose (mg/dL) >600 H* (70-110) mg/dL POC Glu Shield Runner ID Bindu Dolan Plasma Lactic Acid Garcia (0.7-2.0) mmol/L Calcium (8.4-10.2) mg/dL Phosphorus (2.5-4.5) mg/dL Magnesium (1.6-2.3) mg/dL Total Bilirubin (0.2-1.3) mg/dL AST (17-59) U/L ALT (4-49) U/L Alkaline Phosphatase (38-126) U/L Ammonia (<30) umol/L Creatine Kinase (55-170) U/L Troponin I (0.000-0.034) ng/mL NT-Pro-B Natriuret Pep pg/mL Total Protein (6.3-8.2) g/dL Albumin (3.5-5.0) g/dL Procalcitonin (0.02-0.09) ng/mL TSH (0.465-4.680) mIU/L Cortisol (3.1-22.4) UG/DL Urine Color Urine Appearance (Clear) Urine pH (5.0-8.0) Ur Specific Auxier (1.001-1.035) Urine Protein (Negative) Urine Glucose (UA) (Negative) Urine Ketones (Negative) Urine Blood (Negative) Urine Nitrite (Negative) Urine Bilirubin (Negative) Urine Urobilinogen (<2.0) mg/dL Ur Leukocyte Esterase (Negative) Urine RBC (0-5) /hpf Urine WBC (0-5) /hpf Amorphous Sediment (None) /hpf Urine Bacteria (None) /hpf Hyaline Casts (0-2) /lpf Granular Casts (0) /lpf Urine Mucus (None) /hpf Urine Yeast (Budding) (None) /hpf Salicylates mg/dL Acetaminophen ug/mL Serum Alcohol mg/dL 09/07/23 09/07/23 09/07/23 Range/Units 23:15 23:15 23:15 WBC (3.8-10.6) k/uL RBC (4.30-5.90) m/uL Hgb (13.0-17.5) gm/dL Hct (39.0-53.0) % MCV (80.0-100.0) fL MCH (25.0-35.0) pg MCHC (31.0-37.0) g/dL RDW (11.5-15.5) % Plt Count (150-450) k/uL MPV Neutrophils % % Lymphocytes % % Monocytes % % Eosinophils % % Basophils % % Neutrophils # (1.3-7.7) k/uL Lymphocytes # (1.0-4.8) k/uL Monocytes # (0-1.0) k/uL Eosinophils # (0-0.7) k/uL Basophils # (0-0.2) k/uL Hypochromasia Macrocytosis PT (10.0-12.5) sec INR (<1.2) APTT (22.0-30.0) sec D-Dimer (<0.60) mg/L FEU Sample Site ABG pH (7.35-7.45) ABG pCO2 (35-45) mmHg ABG pO2 (83-108) mmHg ABG HCO3 (21-25) mmol/L ABG Total CO2 (19-24) mmol/L ABG O2 Saturation (94-97) % ABG Base Excess mmol/L Elan Test FiO2 % Sodium 143 (137-145) mmol/L Potassium 5.2 H (3.5-5.1) mmol/L Chloride 115 H (98-107) mmol/L Carbon Dioxide <5 L* (22-30) mmol/L Anion Gap mmol/L BUN 134 H* (9-20) mg/dL Creatinine 4.29 H (0.66-1.25) mg/dL Est GFR (CKD-EPI)AfAm 16 (>60 ml/min/1.73 sqM) Est GFR (CKD-EPI)NonAf 13 (>60 ml/min/1.73 sqM) Glucose 910 H* (74-99) mg/dL POC Glucose (mg/dL) (70-110) mg/dL POC Glu Shield Runner ID Plasma Lactic Acid Garcia 1.1 (0.7-2.0) mmol/L Calcium 8.3 L (8.4-10.2) mg/dL Phosphorus 8.6 H (2.5-4.5) mg/dL Magnesium 3.8 H (1.6-2.3) mg/dL Total Bilirubin 0.7 (0.2-1.3) mg/dL AST 22 (17-59) U/L ALT 12 (4-49) U/L Alkaline Phosphatase 110 (38-126) U/L Ammonia (<30) umol/L Creatine Kinase 882 H (55-170) U/L Troponin I 0.084 H* (0.000-0.034) ng/mL NT-Pro-B Natriuret Pep 2720 pg/mL Total Protein 5.3 L (6.3-8.2) g/dL Albumin 3.3 L (3.5-5.0) g/dL Procalcitonin (0.02-0.09) ng/mL TSH 1.350 (0.465-4.680) mIU/L Cortisol 28.5 H (3.1-22.4) UG/DL Urine Color Urine Appearance (Clear) Urine pH (5.0-8.0) Ur Specific Auxier (1.001-1.035) Urine Protein (Negative) Urine Glucose (UA) (Negative) Urine Ketones (Negative) Urine Blood (Negative) Urine Nitrite (Negative) Urine Bilirubin (Negative) Urine Urobilinogen (<2.0) mg/dL Ur Leukocyte Esterase (Negative) Urine RBC (0-5) /hpf Urine WBC (0-5) /hpf Amorphous Sediment (None) /hpf Urine Bacteria (None) /hpf Hyaline Casts (0-2) /lpf Granular Casts (0) /lpf Urine Mucus (None) /hpf Urine Yeast (Budding) (None) /hpf Salicylates <1.0 mg/dL Acetaminophen <10.0 ug/mL Serum Alcohol <10 mg/dL 09/07/23 09/07/23 09/07/23 Range/Units 23:15 23:35 23:48 WBC (3.8-10.6) k/uL RBC (4.30-5.90) m/uL Hgb (13.0-17.5) gm/dL Hct (39.0-53.0) % MCV (80.0-100.0) fL MCH (25.0-35.0) pg MCHC (31.0-37.0) g/dL RDW (11.5-15.5) % Plt Count (150-450) k/uL MPV Neutrophils % % Lymphocytes % % Monocytes % % Eosinophils % % Basophils % % Neutrophils # (1.3-7.7) k/uL Lymphocytes # (1.0-4.8) k/uL Monocytes # (0-1.0) k/uL Eosinophils # (0-0.7) k/uL Basophils # (0-0.2) k/uL Hypochromasia Macrocytosis PT (10.0-12.5) sec INR (<1.2) APTT (22.0-30.0) sec D-Dimer (<0.60) mg/L FEU Sample Site ABG pH (7.35-7.45) ABG pCO2 (35-45) mmHg ABG pO2 (83-108) mmHg ABG HCO3 (21-25) mmol/L ABG Total CO2 (19-24) mmol/L ABG O2 Saturation (94-97) % ABG Base Excess mmol/L Elan Test FiO2 % Sodium (137-145) mmol/L Potassium (3.5-5.1) mmol/L Chloride (98-107) mmol/L Carbon Dioxide (22-30) mmol/L Anion Gap mmol/L BUN (9-20) mg/dL Creatinine (0.66-1.25) mg/dL Est GFR (CKD-EPI)AfAm (>60 ml/min/1.73 sqM) Est GFR (CKD-EPI)NonAf (>60 ml/min/1.73 sqM) Glucose (74-99) mg/dL POC Glucose (mg/dL) (70-110) mg/dL POC Glu Shield Runner ID Plasma Lactic Acid Garcia (0.7-2.0) mmol/L Calcium (8.4-10.2) mg/dL Phosphorus (2.5-4.5) mg/dL Magnesium (1.6-2.3) mg/dL Total Bilirubin (0.2-1.3) mg/dL AST (17-59) U/L ALT (4-49) U/L Alkaline Phosphatase (38-126) U/L Ammonia <9 (<30) umol/L Creatine Kinase (55-170) U/L Troponin I (0.000-0.034) ng/mL NT-Pro-B Natriuret Pep pg/mL Total Protein (6.3-8.2) g/dL Albumin (3.5-5.0) g/dL Procalcitonin 0.29 H (0.02-0.09) ng/mL TSH (0.465-4.680) mIU/L Cortisol (3.1-22.4) UG/DL Urine Color Yellow Urine Appearance Cloudy (Clear) Urine pH 5.0 (5.0-8.0) Ur Specific Auxier 1.019 (1.001-1.035) Urine Protein 1+ H (Negative) Urine Glucose (UA) 4+ H (Negative) Urine Ketones 1+ H (Negative) Urine Blood Small H (Negative) Urine Nitrite Negative (Negative) Urine Bilirubin 1+ H (Negative) Urine Urobilinogen 2.0 (<2.0) mg/dL Ur Leukocyte Esterase Negative (Negative) Urine RBC 3 (0-5) /hpf Urine WBC 6 H (0-5) /hpf Amorphous Sediment Rare H (None) /hpf Urine Bacteria Rare H (None) /hpf Hyaline Casts 38 H (0-2) /lpf Granular Casts 1 (0) /lpf Urine Mucus Occasional H (None) /hpf Urine Yeast (Budding) Occasional H (None) /hpf Salicylates mg/dL Acetaminophen ug/mL Serum Alcohol mg/dL 09/07/23 Range/Units 23:59 WBC (3.8-10.6) k/uL RBC (4.30-5.90) m/uL Hgb (13.0-17.5) gm/dL Hct (39.0-53.0) % MCV (80.0-100.0) fL MCH (25.0-35.0) pg MCHC (31.0-37.0) g/dL RDW (11.5-15.5) % Plt Count (150-450) k/uL MPV Neutrophils % % Lymphocytes % % Monocytes % % Eosinophils % % Basophils % % Neutrophils # (1.3-7.7) k/uL Lymphocytes # (1.0-4.8) k/uL Monocytes # (0-1.0) k/uL Eosinophils # (0-0.7) k/uL Basophils # (0-0.2) k/uL Hypochromasia Macrocytosis PT (10.0-12.5) sec INR (<1.2) APTT (22.0-30.0) sec D-Dimer (<0.60) mg/L FEU Sample Site Right Femoral ABG pH 7.04 L* (7.35-7.45) ABG pCO2 25 L (35-45) mmHg ABG pO2 204 H (83-108) mmHg ABG HCO3 7 L* (21-25) mmol/L ABG Total CO2 8 L (19-24) mmol/L ABG O2 Saturation 99.7 H (94-97) % ABG Base Excess -22.6 mmol/L Elan Test Yes FiO2 35 % Sodium (137-145) mmol/L Potassium (3.5-5.1) mmol/L Chloride (98-107) mmol/L Carbon Dioxide (22-30) mmol/L Anion Gap mmol/L BUN (9-20) mg/dL Creatinine (0.66-1.25) mg/dL Est GFR (CKD-EPI)AfAm (>60 ml/min/1.73 sqM) Est GFR (CKD-EPI)NonAf (>60 ml/min/1.73 sqM) Glucose (74-99) mg/dL POC Glucose (mg/dL) (70-110) mg/dL POC Glu Shield Runner ID Plasma Lactic Acid Garcia (0.7-2.0) mmol/L Calcium (8.4-10.2) mg/dL Phosphorus (2.5-4.5) mg/dL Magnesium (1.6-2.3) mg/dL Total Bilirubin (0.2-1.3) mg/dL AST (17-59) U/L ALT (4-49) U/L Alkaline Phosphatase (38-126) U/L Ammonia (<30) umol/L Creatine Kinase (55-170) U/L Troponin I (0.000-0.034) ng/mL NT-Pro-B Natriuret Pep pg/mL Total Protein (6.3-8.2) g/dL Albumin (3.5-5.0) g/dL Procalcitonin (0.02-0.09) ng/mL TSH (0.465-4.680) mIU/L Cortisol (3.1-22.4) UG/DL Urine Color Urine Appearance (Clear) Urine pH (5.0-8.0) Ur Specific Auxier (1.001-1.035) Urine Protein (Negative) Urine Glucose (UA) (Negative) Urine Ketones (Negative) Urine Blood (Negative) Urine Nitrite (Negative) Urine Bilirubin (Negative) Urine Urobilinogen (<2.0) mg/dL Ur Leukocyte Esterase (Negative) Urine RBC (0-5) /hpf Urine WBC (0-5) /hpf Amorphous Sediment (None) /hpf Urine Bacteria (None) /hpf Hyaline Casts (0-2) /lpf Granular Casts (0) /lpf Urine Mucus (None) /hpf Urine Yeast (Budding) (None) /hpf Salicylates mg/dL Acetaminophen ug/mL Serum Alcohol mg/dL - EKG Data -: EKG Interpreted by Me (EKG sinus 66 LA 164 QRS 112 QTc 470) - Radiology Data Radiology results: report reviewed (Chest x-ray positive ET tube problems that have central line), image reviewed Critical Care Time Critical Care Time: Yes Total Critical Care Time: 31 Disposition Clinical Impression: Hypoxia, DKA (diabetic ketoacidosis), Altered mental status, Hypotension, Fever Disposition: ADMITTED IP TO THIS [facility] Condition: Critical Is patient prescribed a controlled substance at d/c from ED?: No Time of Disposition: 00:00
[2023-09-07] MEDS: SODIUM CHLORIDE 0.9% 1,000 ML IV STA ×2 (23:39)
[2023-09-07 23:56] LABS: Allen Test Performed? Yes
[2023-09-07 23:59] LABS: ABG Base Excess -22.6 mmol/L; ABG Oxygen Saturation 99.7 % (94-97); ABG PCO2 25 mmHg (35-45); ABG PO2 204 mmHg (83-108); ABG TCO2 8 mmol/L (19-24)
[2023-09-08 00:06] LABS: ABG HCO3 7 mmol/L (21-25); ABG PH 7.04 (7.35-7.45)
[2023-09-08] MEDS: SODIUM BICARB 8.4% 50 ML SYR (1 MEQ/ML) IV STA ×2 (00:09→00:53)
--- NOTE | 2023-09-08 00:11 | CT ---
EXAMINATION TYPE: CT brain wo con DATE OF EXAM: 09/08/2023 HISTORY: Altered mental status Automated Exposure Control for Dose Reduction was Utilized. TECHNIQUE: CT scan of the head is performed without contrast. COMPARISON: CT brain June 08, 2022 FINDINGS: There is no acute intracranial hemorrhage or midline shift identified. There is mild diff use ventricular and sulcal prominence redemonstrated. Slightly more prominent peripheral CSF prominen ce on the left could reflect tiny subdural hygroma. There is moderate low-attenuation in the deep and periventricular white matter redemonstrated. The globes are intact bilaterally. Completely opacifie d bilateral maxillary sinuses on current study with completely opacified left sphenoid sinus and part ial opacification posterior left ethmoid sinuses. There is partial visualization of endotracheal an d coiled orogastric tube. IMPRESSION: No acute intracranial hemorrhage or midline shift. There is mild diffuse age-related ce rebral atrophy and moderate probable chronic small vessel ischemic change redemonstrated.
[2023-09-08 00:19] LABS: INR 1.1 (<1.2); Partial Thromboplastin Time 24.4 sec (22.0-30.0); Prothrombin Time 11.7 sec (10.0-12.5)
[2023-09-08] MEDS: NOREPINEPHRINE 32 MG in SODIUM CHLORIDE 0.9% 218 ML IV SCH (00:21)
[2023-09-08 00:22] LABS: Basophils % (A) 0 %; Eosinophils % (A) 0 %; HCT 50.3 % (39.0-53.0); HGB 14.5 gm/dL (13.0-17.5); Hypochromasia Marked; Lymphocytes # (A) 0.5 k/uL (1.0-4.8); Lymphocytes % (A) 6 %; MCH 29.5 pg (25.0-35.0); MCHC 28.9 g/dL (31.0-37.0); MCV 102.2 fL (80.0-100.0); Macrocytosis Slight; Mean Platelet Volume 11.8; Monocytes # (A) 0.4 k/uL (0-1.0); Monocytes % (A) 5 %; Neutrophils # (A) 7.8 k/uL (1.3-7.7); Neutrophils % (A) 89 %; Platelet Count 136 k/uL (150-450); RBC 4.93 m/uL (4.30-5.90); RDW 14.3 % (11.5-15.5); WBC 8.8 k/uL (3.8-10.6)
--- NOTE | 2023-09-08 00:25 | XR ---
EXAMINATION TYPE: XR chest 1V portable DATE OF EXAM: 09/08/2023 COMPARISON: Prior chest x-ray from 03/29/2022 HISTORY: ET. Unresponsive/intubated TECHNIQUE: Single frontal view of the chest is obtained. FINDINGS: There is new endotracheal tube terminating at superior aortic knob level approximately 4 t o 5 cm above the mahesh. There is a new orogastric tube terminating in the distal esophagus and shoul d be advanced. There is right internal jugular central venous catheter terminating near the cavoatria l junction. Low lung volumes are present without pneumothorax. Lungs are clear. Cardiac silhouette size appears w ithin normal limits. Osseous structures are intact. IMPRESSION: 1. New endotracheal tube is satisfactory in position. 2. New orogastric tube terminates above the diaphragm and should be advanced. 3. No pneumothorax after right-sided central venous catheter placement. 4. Lungs remain clear.
[2023-09-08] MEDS ORDERED: NALOXONE 0.4 MG/ML 1 ML VIAL IV PRN (00:26)
[2023-09-08 00:39] LABS: ALT 12 U/L (4-49); AST 22 U/L (17-59); Acetaminophen <10.0 ug/mL; African American GFR (CKD) 16 (>60 ml/min/1.73 sqM); Albumin 3.3 g/dL (3.5-5.0); Alcohol <10 mg/dL; Alkaline Phosphatase 110 U/L (38-126); Calcium 8.3 mg/dL (8.4-10.2); Chloride 115 mmol/L (98-107); Creatine Kinase 882 U/L (55-170); Magnesium 3.8 mg/dL (1.6-2.3); Non-African American GFR(CKD) 13 (>60 ml/min/1.73 sqM); Phosphorus 8.6 mg/dL (2.5-4.5); Potassium 5.2 mmol/L (3.5-5.1); Salicylate <1.0 mg/dL; Sodium 143 mmol/L (137-145); Total Bilirubin 0.7 mg/dL (0.2-1.3); Total Protein 5.3 g/dL (6.3-8.2)
[2023-09-08] MEDS ORDERED: Potassium Replacement Protocol 1 EACH MISC MISCELLANE PRN (00:42)
[2023-09-08] MEDS ORDERED: Magnesium Replacement Protocol 1 EACH MISC MISCELLANE PRN (00:42)
[2023-09-08] MEDS ORDERED: DEXTROSE 50% SYRINGE 50 ML IVP PRN ×4 (00:42→21:51)
[2023-09-08 00:47] LABS: NT-Pro-B-Type Natriuretic Pept 2720 pg/mL
[2023-09-08 00:50] LABS: Amorphous Sediment,Urine Rare /hpf; Appearance,Urine Cloudy (Clear); Bacteria,Urine Rare /hpf; Bilirubin,Urine 1+ (Negative); Blood,Urine Small (Negative); Budding Yeast,Urine Occasional /hpf; Color,Urine Yellow; Glucose,Urine (UA) 4+ (Negative); Granular Casts,Urine 1 /lpf (0); Hyaline Casts,Urine 38 /lpf (0-2); Ketones,Urine 1+ (Negative); Leukocyte Esterase,Urine Negative (Negative); Mucus,Urine Occasional /hpf; Nitrite,Urine Negative (Negative); Protein,Urine 1+ (Negative); RBC,Urine 3 /hpf (0-5); Specific Gravity,Urine 1.019 (1.001-1.035); WBC,Urine 6 /hpf (0-5)
[2023-09-08] MEDS: SODIUM CHLORIDE 0.9% 1,000 ML IV ONE ×2 (00:50→10:23)
[2023-09-08 00:58] LABS: Blood Urea Nitrogen 134 mg/dL (9-20); Carbon Dioxide <5 mmol/L (22-30); Glucose 910 mg/dL (74-99)
[2023-09-08 01:03] LABS: Glucose,Whole Blood >600 mg/dL (70-110)
[2023-09-08] MEDS: INSULIN REGULAR BOLUS (FROM DRIP BAG) IV ONE (01:03)
[2023-09-08] MEDS: INSULIN REGULAR 100 UNIT in SODIUM CHLORIDE 0.9% 100 ML IV SCH ×2 (01:04→22:25)
[2023-09-08 01:46] LABS: Glucose,Whole Blood >600 mg/dL (70-110)
--- NOTE | 2023-09-08 02:18 | P.CNPUL ---
History of Present Illness Consult date: 09/08/23 Requesting physician: Ronald Garrison Reason for consult: other (ICU management) Chief complaint: Altered mental status History of present illness: Patient is a 67-year-old male with past medical history significant for diabetes mellitus, prior toe amputations, hyperlipidemia, coronary artery disease with previous stents, and seizure disorder. He is currently intubated to the mechanical ventilator, unresponsive without any sedation, unable to provide any information. Patient was transferred from [facility] late last night. Apparently, found unresponsive by his girlfriend, and last known well was 24 hours prior. Patient was intubated by EMS on arrival and triaged to [facility]. Initial presentation was consistent with DKA. Subsequently, the patient was transferred to [facility]. Patient is currently in trauma bay 1, he is intubated mechanical ventilator. Chest x-ray on arrival to our facility shows the endotracheal tube in satisfactory position approximately 4 cm above the mahesh. There is an orogastric tube that should be advanced. Right IJ central line catheter appears to terminate at the Cavo atrial junction. No focal infiltrates or evidence of pneumonia. Current ventilator settings are assist-control, respiratory rate 14, tidal volume 500, FiO2 35%, PEEP of 5. He is breathing slightly above set rate. Not on any sedation. Remains unresponsive even to deep painful stimuli. CT of the brain did not show any acute intracranial hemorrhage or mass effect. ABG is consistent with profound metabolic acidosis, with a PaO2 of 204, pCO2 of 25, pH of 7.04. Patient has been given a total of 2 A of bicarb. He is hypotensive and in a shock state, he has been fluid resuscitated with at least 2.5 L crystalloid fluid. No insulin infusion is currently ordered. He remains profoundly hypotensive, and has been started on norepinephrine which is currently infusing at 0.06 mcg/kg/min. CBC: WBC count 8.8, hemoglobin 14.5, hematocrit 50.3, platelets 136. CMP: Sodium 143, potassium 5.2, chloride 115, serum bicarb less than 5, anion gap unmeasurable, BUN 134, creatinine 4.29, glucose 910. Lactic 1.1. LFTs not elevated. Total bilirubin 0.7. Ammonia less than 9. CPK was 882. Troponin 0.084. NT BNP 2720. EKG shows normal sinus rhythm and is nondiagnostic for acute ischemia. Urinalysis positive for glucose and ketones. Urine toxicology screen at outside facility was essentially negative. Serum alcohol less than 10. Patient will be admitted to the intensive care unit once bed available. Review of Systems ROS unobtainable: due to endotracheal tube, due to mental status Past Medical History Past Medical History: Coronary Artery Disease (CAD), Diabetes Mellitus, Myocardial Infarction (MO), Seizure Disorder History of Any Multi-Drug Resistant Organisms: Unobtainable Past Surgical History: Heart Catheterization With Stent Additional Past Surgical History / Comment(s): shyla big toe removal Past Psychological History: Unable to Obtain Smoking Status: Never smoker Past Alcohol Use History: None Reported Past Drug Use History: None Reported Medications and Allergies Home Medications Medication Instructions Recorded Confirmed Type Ascorbic Acid [Vitamin C] 500 mg PO BID 09/08/23 09/08/23 History Atorvastatin [Lipitor] 40 mg PO HS 09/08/23 09/08/23 History Cetirizine HCl [Zyrtec] 10 mg PO HS 09/08/23 09/08/23 History Cholecalciferol (Vitamin D3) 1,250 mcg PO WEEKLY 09/08/23 09/08/23 History [Vitamin D3 (1250 Mcg = 50,000 Iu)] Clopidogrel [Plavix] 75 mg PO DAILY 09/08/23 09/08/23 History Empagliflozin [Jardiance] 10 mg PO DAILY 09/08/23 09/08/23 History Escitalopram [Lexapro] 10 mg PO DAILY 09/08/23 09/08/23 History Furosemide [Lasix] 20 mg PO DAILY 09/08/23 09/08/23 History Insulin Glargine,Hum.rec.anlog 27 units SQ 09/08/23 09/08/23 History [Lantus Solostar Pen] Isosorbide Mononitrate ER [Imdur] 30 mg PO DAILY 09/08/23 09/08/23 History Potassium Chloride [Klor-Con M10] 10 meq PO DAILY 09/08/23 09/08/23 History amLODIPine [Norvasc] 5 mg PO DAILY 09/08/23 09/08/23 History carvediloL [Coreg] 25 mg PO BID 09/08/23 09/08/23 History hydrALAZINE HCL [Apresoline] 50 mg PO TID 09/08/23 09/08/23 History levETIRAcetam [Keppra] 500 mg PO Q12HR 09/08/23 09/08/23 History lisinopriL [Lisinopril] 40 mg PO HS 09/08/23 09/08/23 History metFORMIN HCL ER [Glucophage XR] 1,000 mg PO W/SUPPER 09/08/23 09/08/23 History tiZANidine [Zanaflex] 4 mg PO TID 09/08/23 09/08/23 History traZODone HCL [Desyrel] 50 mg PO HS 09/08/23 09/08/23 History Allergies Allergy/AdvReac Type Severity Reaction Status Date / Time No Known Allergies Allergy Verified 09/08/23 10:10 Physical Exam Vitals: Vital Signs Temp Pulse Resp BP Pulse Ox FiO2 09/08/23 01:15 68 20 96/54 99 09/08/23 01:10 68 14 94/57 100 09/08/23 01:05 66 18 97/57 100 09/08/23 01:00 66 17 118/66 99 09/08/23 00:55 66 16 88/56 100 09/08/23 00:50 66 18 81/51 100 09/08/23 00:45 65 18 79/52 100 09/08/23 00:40 65 18 78/50 100 09/08/23 00:35 65 22 76/50 100 09/08/23 00:30 65 20 74/51 100 09/08/23 00:25 64 22 76/50 100 09/08/23 00:23 22 09/07/23 23:40 65 22 79/53 99 09/07/23 23:35 65 22 78/48 99 09/07/23 23:30 66 22 77/53 99 09/07/23 23:25 66 22 80/56 99 09/07/23 23:20 67 22 59/44 99 09/07/23 23:15 66 22 73/49 99 09/07/23 23:10 67 18 76/49 99 09/07/23 23:09 97.6 F 67 22 76/49 97 35 09/07/23 23:08 35 Intake and Output 06/30/24 06/30/24 07/01/24 14:59 22:59 06:59 Intake Total 1.019 Balance 1.019 Intake: Intake, IV Titration 1.019 Amount Norepinephrine 32 mg In 1.019 Sodium Chloride 0.9% 218 ml @ 0.03 MCG/KG/MIN 1.34 mls/hr IV .Q24H [facility] Rx#: [id number] Other: Weight 89.8 kg GENERAL EXAM: Unresponsive, 67-year-old male, intubated to mechanical ventilator, breathing slightly above set rate. HEAD: Normocephalic and atraumatic EYES: Sluggish reaction of pupils, equal size. NOSE: Clear with pink turbinates. THROAT: No erythema or exudates. Dry mucous membranes. NECK: No masses, no JVD. CHEST: No chest wall deformity. LUNGS: Equal air entry with no crackles, wheeze, rhonchi or dullness. Intubated mechanical ventilator. Peak pressures 17. No significant endotracheal secretions. CVS: S1 and S2 normal with no soft systolic murmur, regular rhythm. No extra heart sounds ABDOMEN: Abdomen flat, active bowel sounds, no hepatosplenomegaly, no guarding or rigidity. Orogastric tube with small amount of brown output. SPINE: No scoliosis or deformity SKIN: No rashes CENTRAL NERVOUS SYSTEM: Unresponsive, even to painful stimuli, not on any sedation. No discernible seizure-like activity. Patellar DTRs 1+ bilaterally. Babinski neutral. EXTREMITIES: There is no peripheral edema, clubbing, or cyanosis. Peripheral pulses are intact. Remote appearing bilateral great toe amputations. Results - Laboratory Findings CBC and BMP: 09/08/23 09:15 09/08/23 09:15 ABG ABG pH 7.04 (7.35-7.45) L* 09/07/23 23:59 ABG pCO2 25 mmHg (35-45) L 09/07/23 23:59 ABG pO2 204 mmHg (83-108) H 09/07/23 23:59 ABG O2 Saturation 99.7 % (94-97) H 09/07/23 23:59 PT/INR, D-dimer PT 11.7 sec (10.0-12.5) 09/07/23 23:15 INR 1.1 (<1.2) 09/07/23 23:15 D-Dimer 2.03 mg/L FEU (<0.60) H 09/07/23 23:15 Abnormal lab findings: Abnormal Labs 09/07/23 09/07/23 09/07/23 23:05 23:15 23:15 MCV 102.2 H MCHC 28.9 L Plt Count 136 L Neutrophils # 7.8 H Lymphocytes # 0.5 L D-Dimer 2.03 H ABG pH ABG pCO2 ABG pO2 ABG HCO3 ABG Total CO2 ABG O2 Saturation Potassium Chloride Carbon Dioxide BUN Creatinine Glucose POC Glucose (mg/dL) >600 H* Calcium Phosphorus Magnesium Creatine Kinase Troponin I Total Protein Albumin Urine Protein Urine Glucose (UA) Urine Ketones Urine Blood Urine Bilirubin Urine WBC Amorphous Sediment Urine Bacteria Hyaline Casts Urine Mucus Urine Yeast (Budding) 09/07/23 09/07/23 09/07/23 23:15 23:15 23:35 MCV MCHC Plt Count Neutrophils # Lymphocytes # D-Dimer ABG pH ABG pCO2 ABG pO2 ABG HCO3 ABG Total CO2 ABG O2 Saturation Potassium 5.2 H Chloride 115 H Carbon Dioxide <5 L* BUN 134 H* Creatinine 4.29 H Glucose 910 H* POC Glucose (mg/dL) Calcium 8.3 L Phosphorus 8.6 H Magnesium 3.8 H Creatine Kinase 882 H Troponin I 0.084 H* Total Protein 5.3 L Albumin 3.3 L Urine Protein 1+ H Urine Glucose (UA) 4+ H Urine Ketones 1+ H Urine Blood Small H Urine Bilirubin 1+ H Urine WBC 6 H Amorphous Sediment Rare H Urine Bacteria Rare H Hyaline Casts 38 H Urine Mucus Occasional H Urine Yeast (Budding) Occasional H 09/07/23 09/08/23 23:59 01:01 MCV MCHC Plt Count Neutrophils # Lymphocytes # D-Dimer ABG pH 7.04 L* ABG pCO2 25 L ABG pO2 204 H ABG HCO3 7 L* ABG Total CO2 8 L ABG O2 Saturation 99.7 H Potassium Chloride Carbon Dioxide BUN Creatinine Glucose POC Glucose (mg/dL) >600 H* Calcium Phosphorus Magnesium Creatine Kinase Troponin I Total Protein Albumin Urine Protein Urine Glucose (UA) Urine Ketones Urine Blood Urine Bilirubin Urine WBC Amorphous Sediment Urine Bacteria Hyaline Casts Urine Mucus Urine Yeast (Budding) - Diagnostic Findings Chest x-ray: image reviewed Assessment and Plan Assessment: Acute diabetic ketoacidosis, blood glucose on arrival to our facility was 910 mg/dL, serum bicarb less than 5, anion gap unmeasurable, ketone positive. Patient will be started on the DKA protocol Severe anion gap metabolic acidosis, secondary to above, normal lactate Hypotension and shock, rule out sepsis, however, no obvious infectious source identified. Possibly secondary to severe hypovolemia. Patient has been resuscitated with a total of 3 L normal crystalloid fluid, and will give 1 additional liter of normal saline bolus. Blood pressures currently requiring low-dose norepinephrine. Mechanical ventilator management, patient was intubated for airway protection, reportedly found unresponsive in the field. Intubated by EMS and then triaged at [facility]. Chest x-ray shows the endotracheal tube approximately 4 cm above the mahesh, in satisfactory position. Orogastric tube will be advanced. Right IJ triple-lumen catheter with tip at the cavoatrial junction. No focal infiltrates or evidence of pneumonia. No obvious acute cardiopulmonary process Altered mental status, currently under investigation, possibly acute metabolic e ncephalopathy, CT of the brain does not show any acute intracranial hemorrhage or mass effect. Severe dehydration, secondary to above Acute rhabdomyolysis, CPK 882 secondary to above Acute kidney injury, secondary to combination of above, renal function is improving Elevated troponins, likely supply/demand mismatch History of type 2 diabetes mellitus History of bilateral great toe amputations History of hyperlipidemia History of coronary artery disease with previous PCI/stent History of seizure disorder, no seizure activity noted Encephalopathy secondary to above and the patient is currently off propofol and the mental status being monitored. Plan: Patient's medications, labs, imaging reviewed Continue on the mechanical ventilator. Patient will be started the DKA protocol. Monitor electrolytes and replace per protocol Continue IV maintenance fluids Given additional 1 L normal saline bolus. Continue low-dose norepinephrine infusion to maintain a MAP of 65 mmHg or greater Patient was given a total of 2 A of sodium bicarbonate No obvious infectious source identified, however, patient is profoundly hypotensive, will receive at least 1 dose of empiric antibiotics. Blood cultures are pending. Home medications will be reconciled once updated. Heparin added for DVT prophylaxis Protonix for GI prophylaxis Patient is currently in critical condition, and will be admitted to the intensive care unit once bed available. Further recommendations to follow I have personally seen and examined the patient, performed the documentation and the assessment and plan as written. Number of minutes spent on the visit:20 This is a joint evaluation that was done along with the nurse practitioner. This is a evaluation that was done more than 30 minutes. This is a critically ill 67-year-old male patient presented to us with profound metabolic acidosis, DKA, hypotension, respiratory failure the patient was intubated and placed on mechanical ventilator. This morning, the patient remains intubated on mechanical ventilator. The patient is still on pressors and norepinephrine is running at 0.19 mcg/kg/min. The patient was given IV fluids a total of 3 L of crystalloid and subsequently she was started on D5 bicarb infusion which obviously raises blood sugar further and the patient remains on insulin drip with 12 units an hour. Note that the anion gap metabolic acidosis improving. Most recent blood work shows a gap of 14 with a serum bicarb of 16 and a sodium level of 151. Potassium levels of 3.2. CBC is unremarkable. The patient is afebrile. The patient remains on the mechanical ventilator. Chest x-ray shows no acute abnormalities. Blood gases from this morning was noted and there is improvement in acidosis. Lactic acid level is not elevated. Serum cortisol level is at 28. Procalcitonin level is at 0.29. Salicylates are negative, alcohol is negative, acetaminophen is negative. The plan for now is to discontinue the bicarb infusion and put the patient on half-normal saline at the rate of 200 cc an hour continue DKA protocol. The patient will be gradually weaned off the pressors and the patient is on physiologic dose of vasopressin. Will obtain an echocardiogram. Will keep the patient on the mechanical ventilator and will continue to follow. Triple-lumen catheter has been established. Arterial line has been established. Condition remains extremely critical. Time with Patient: Greater than 30
[2023-09-08 02:32] LABS: Glucose,Whole Blood >600 mg/dL (70-110)
[2023-09-08] MEDS: SODIUM CHLORIDE 0.9% 1,000 ML IV SCH (02:49)
[2023-09-08 03:06] LABS: Glucose,Whole Blood >600 mg/dL (70-110)
[2023-09-08] MEDS: IPRATROPIUM-ALBUTEROL 3 ML NEB INHALATION SCH (03:18)
--- NOTE | 2023-09-08 03:30 | P.PCN ---
Date of Procedure: 09/08/23 Preoperative Diagnosis: Hypotension and shock; diabetic ketoacidosis Postoperative Diagnosis: Hypotension and shock; diabetic ketoacidosis Procedure(s) Performed: Insertion of a left brachial arterial line Indications for Procedure: Continuous blood pressure monitoring and frequent blood draws Description of Procedure: Informed consent was obtained, and a procedural timeout was performed . The patient was placed in supine position. The left brachial region was prepared in a sterile fashion, and a sterile drape was applied. The left brachial artery was palpated, easily cannulated, and a guidewire was placed. A Cook catheter was inserted over the guidewire, and the guidewire was removed. There was good arterial blood flow, good arterial waveform, and no complications. The line was secured with using a 3-0 silk suture.
[2023-09-08 03:31] LABS: ABG Oxygen Saturation 99.6 % (94-97); ABG PCO2 30 mmHg (35-45); ABG PO2 163 mmHg (83-108); ABG TCO2 10 mmol/L (19-24); Allen Test Performed? Yes
[2023-09-08] MEDS: DILTIAZEM DRIP BOLUS FROM BAG 1 MG SOLN IV ONE (03:48)
[2023-09-08 04:03] LABS: ABG HCO3 9 mmol/L (21-25)
[2023-09-08] MEDS: DEXTROSE 5% IN WATER 1,000 ML with SODIUM BICARB (1 MEQ/ML) 150 ML IV SCH (04:05)
[2023-09-08 04:10] LABS: Glucose,Whole Blood 597 mg/dL (70-110)
--- NOTE | 2023-09-08 04:10 | XR ---
EXAMINATION TYPE: XR chest 1V portable DATE OF EXAM: 09/08/2023 CLINICAL HISTORY: OG tube placement. TECHNIQUE: Single AP portable supine view of the chest is obtained. COMPARISON: Chest x-ray from earlier today. FINDINGS: There is interval advancement of orogastric tube below diaphragm. Stable positioning of en dotracheal tube and right internal jugular central venous catheter. Lungs remain clear. Cardiac silhouette size remains within normal limits. Osseous structures are inta ct. IMPRESSION: Successful repositioning of orogastric tube. Other findings stable.
[2023-09-08] MEDS: DEXTROSE 5% IN WATER 100 ML with AMIODARONE 150 MG IV ONE (04:39)
[2023-09-08] MEDS: AMIODARONE 360 MG in DEXTROSE 5% IN WATER 200 ML IV ONE (04:49)
[2023-09-08] MEDS: VASOPRESSIN 20 UNIT in SODIUM CHLORIDE 0.9% 50 ML IV SCH (04:49)
[2023-09-08 05:01] LABS: African American GFR (CKD) 20 (>60 ml/min/1.73 sqM); Anion Gap 19 mmol/L; Chloride 123 mmol/L (98-107); Non-African American GFR(CKD) 17 (>60 ml/min/1.73 sqM); Sodium 149 mmol/L (137-145)
[2023-09-08 05:04] LABS: Glucose,Whole Blood 595 mg/dL (70-110)
[2023-09-08 05:59] LABS: Glucose,Whole Blood 539 mg/dL (70-110)
[2023-09-08 06:28] LABS: Glucose 664 mg/dL (74-99)
[2023-09-08 06:29] LABS: Blood Urea Nitrogen 120 mg/dL (9-20); Carbon Dioxide 7 mmol/L (22-30)
[2023-09-08 07:05] LABS: Glucose,Whole Blood 565 mg/dL (70-110)
[2023-09-08] MEDS: POTASSIUM CHLORIDE 10 MEQ in WATER FOR INJECTION 1 100ML.BAG IVPB STA (07:05)
[2023-09-08 08:34] LABS: Glucose,Whole Blood 542 mg/dL (70-110)
[2023-09-08] MEDS: HEPARIN SODIUM,PORCINE 5,000 UNIT/ML 1 ML VIAL SQ SCH (08:59)
[2023-09-08] MEDS: PANTOPRAZOLE 40 MG/10 ML VIAL IV SCH (09:00)
[2023-09-08] MEDS: CHLORHEXIDINE GLUCONATE 15 ML CUP MUCOUS MEM SCH (09:00)
[2023-09-08 09:17] LABS: Glucose,Whole Blood 474 mg/dL (70-110)
[2023-09-08 09:43] LABS: African American GFR (CKD) 24 (>60 ml/min/1.73 sqM); Anion Gap 14 mmol/L; Carbon Dioxide 16 mmol/L (22-30); Chloride 121 mmol/L (98-107); Non-African American GFR(CKD) 21 (>60 ml/min/1.73 sqM); Phosphorus 2.7 mg/dL (2.5-4.5); Potassium 3.2 mmol/L (3.5-5.1); Sodium 151 mmol/L (137-145)
[2023-09-08 09:48] LABS: Blood Urea Nitrogen 118 mg/dL (9-20); Glucose 559 mg/dL (74-99)
[2023-09-08 09:50] LABS: Basophils % (A) 0 %; Creatine Kinase 1068 U/L (55-170); Eosinophils % (A) 0 %; HCT 45.4 % (39.0-53.0); HGB 14.4 gm/dL (13.0-17.5); Lymphocytes # (A) 0.3 k/uL (1.0-4.8); Lymphocytes % (A) 4 %; MCH 29.7 pg (25.0-35.0); MCHC 31.7 g/dL (31.0-37.0); Mean Platelet Volume 10.3; Monocytes # (A) 0.3 k/uL (0-1.0); Monocytes % (A) 4 %; Neutrophils # (A) 7.3 k/uL (1.3-7.7); Neutrophils % (A) 92 %; Platelet Count 127 k/uL (150-450); RBC 4.84 m/uL (4.30-5.90); RDW 14.4 % (11.5-15.5)
[2023-09-08 09:52] LABS: MCV 93.7 fL (80.0-100.0)
[2023-09-08 10:41] LABS: Glucose,Whole Blood 442 mg/dL (70-110)
[2023-09-08] MEDS: POTASSIUM CHLORIDE 10 MEQ in WATER FOR INJECTION 1 100ML.BAG IVPB ONE (10:52)
[2023-09-08] MEDS: AMIODARONE 450 MG in DEXTROSE 5% IN WATER 250 ML IV SCH (10:53)
[2023-09-08] MEDS: SODIUM CHLORIDE 0.45% 1,000 ML IV SCH ×2 (11:28→22:29)
[2023-09-08 11:29] LABS: Glucose,Whole Blood 405 mg/dL (70-110)
[2023-09-08 13:11] LABS: Glucose,Whole Blood 329 mg/dL (70-110)
[2023-09-08] MEDS ORDERED: DEXTROSE 5%-0.45% NACL 1,000 ML with POTASSIUM CHLORIDE 20 MEQ IV SCH (13:45)
[2023-09-08 14:07] LABS: Glucose,Whole Blood 308 mg/dL (70-110)
[2023-09-08 14:25] LABS: African American GFR (CKD) 27 (>60 ml/min/1.73 sqM); Anion Gap 9 mmol/L; Calcium 7.3 mg/dL (8.4-10.2); Carbon Dioxide 18 mmol/L (22-30); Chloride 124 mmol/L (98-107); Glucose 332 mg/dL (74-99); Non-African American GFR(CKD) 23 (>60 ml/min/1.73 sqM); Phosphorus 2.3 mg/dL (2.5-4.5); Potassium 3.2 mmol/L (3.5-5.1); Sodium 151 mmol/L (137-145)
[2023-09-08 14:32] LABS: Blood Urea Nitrogen 110 mg/dL (9-20)
[2023-09-08 15:11] LABS: Glucose,Whole Blood 267 mg/dL (70-110)
[2023-09-08] MEDS: D5-0.45% NACL WITH KCL 20MEQ/L 1,000 ML IV SCH (15:23)
[2023-09-08] MEDS: POTASSIUM BICARBONATE/CIT AC 20 MEQ TABLET.EFF PO ONE (15:56)
[2023-09-08 16:04] LABS: Glucose,Whole Blood 279 mg/dL (70-110)
--- NOTE | 2023-09-08 16:59 | P.HPIM ---
History of Present Illness H&P Date: 09/08/23 Chief Complaint: DKA, hypotension, shock This is a 67-year-old gentleman with past medical history significant for diabetes mellitus, bilateral great toe amputations, CAD, [place], seizure disorder,intubated in the field, transferred from [place] ER, admitted with significant DKA, hypotension, shock and multiple other medical issues. Currently in the ICU, remains vent dependent on 35% FiO2 +5 of PEEP. Maintained on Levophed, bicarb, vasopressin, amiodarone and insulin drips as well as D5.45 NS IV fluids. Requiring Flores hugger. Patient has not seen PCP since June 27, had proceeded to live at [facility] in [place]. ICU staff reports significant other reported that patient became unhappy living at the [facility], came to live with her, patient was sick for approximately 4 days and she discovered him unresponsive on her couch. Unresponsive with the exception of winces at noxious stimuli, no spontaneous eye-opening. Brain CT reported no acute intracranial hemorrhage or midline shift, mild diffuse age- related cerebral atrophy and moderate probable chronic small vessel ischemic change redemonstrated. ABGs on arrival reported pH 7.04, pCO2 25, pO2 204, bicarb 7, total CO2 8, O2 sat 99.7, base excess -22.6 on 35% FiO2. chest x-ray reported lungs clear, no infiltrates, cardiac silhouette size within normal limits. Outside toxicology reported as negative;serum alcohol less than 10. received 3 L crystalloids, 1 L saline bolus, 2 g bicarb in the ER with pressors initiated. Procalcitonin 0.29, WBC count 8.0, hemoglobin 14.4, platelets 127,Sodium 143,151, potassium 5.2, 3.2, chloride 115,124, bicarb less than 5, 18, anion gap unmeasurable, 9, BUN 134, 110, creatinine 4.29, 2.76, glucose 910, 332. Lactic 1.1. LFTs WNL. Ammonia less than 9. CPK 882, 1068. Troponin 0.084. NT BNP 2720. EKG reported normal sinus rhythm. UA positive for hyaline casts, ketones ,glucose, and protein. Negative for nitrates. No seizure activity reported. Review of Systems ROS unable to obtain, patient on mechanical ventilator, unresponsive currently Past Medical History Past Medical History: Coronary Artery Disease (CAD), Diabetes Mellitus, Myocardial Infarction ([place]), Seizure Disorder Last Myocardial Infarction Date:: unknown History of Any Multi-Drug Resistant Organisms: Unobtainable Past Surgical History: Heart Catheterization With Stent Additional Past Surgical History / Comment(s): shyla big toe removal Date of Last Stent Placement:: unknown Past Psychological History: Unable to Obtain Smoking Status: Never smoker Past Alcohol Use History: None Reported Past Drug Use History: None Reported Medications and Allergies Home Medications Medication Instructions Recorded Confirmed Type Ascorbic Acid [Vitamin C] 500 mg PO BID 09/08/23 09/08/23 History Atorvastatin [Lipitor] 40 mg PO HS 09/08/23 09/08/23 History Cetirizine HCl [Zyrtec] 10 mg PO HS 09/08/23 09/08/23 History Cholecalciferol (Vitamin D3) 1,250 mcg PO WEEKLY 09/08/23 09/08/23 History [Vitamin D3 (1250 Mcg = 50,000 Iu)] Clopidogrel [Plavix] 75 mg PO DAILY 09/08/23 09/08/23 History Empagliflozin [Jardiance] 10 mg PO DAILY 09/08/23 09/08/23 History Escitalopram [Lexapro] 10 mg PO DAILY 09/08/23 09/08/23 History Furosemide [Lasix] 20 mg PO DAILY 09/08/23 09/08/23 History Insulin Glargine,Hum.rec.anlog 27 units SQ 09/08/23 09/08/23 History [Lantus Solostar Pen] Isosorbide Mononitrate ER [Imdur] 30 mg PO DAILY 09/08/23 09/08/23 History Potassium Chloride [Klor-Con M10] 10 meq PO DAILY 09/08/23 09/08/23 History amLODIPine [Norvasc] 5 mg PO DAILY 09/08/23 09/08/23 History carvediloL [Coreg] 25 mg PO BID 09/08/23 09/08/23 History hydrALAZINE HCL [Apresoline] 50 mg PO TID 09/08/23 09/08/23 History levETIRAcetam [Keppra] 500 mg PO Q12HR 09/08/23 09/08/23 History lisinopriL [Lisinopril] 40 mg PO HS 09/08/23 09/08/23 History metFORMIN HCL ER [Glucophage XR] 1,000 mg PO W/SUPPER 09/08/23 09/08/23 History tiZANidine [Zanaflex] 4 mg PO TID 09/08/23 09/08/23 History traZODone HCL [Desyrel] 50 mg PO HS 09/08/23 09/08/23 History Allergies Allergy/AdvReac Type Severity Reaction Status Date / Time No Known Allergies Allergy Verified 09/08/23 10:10 Physical Exam Vitals: Vital Signs Temp Pulse Resp BP Pulse Ox FiO2 09/08/23 15:49 105 H 09/08/23 15:46 35 09/08/23 15:38 104 H 09/08/23 14:15 103 H 21 98 09/08/23 14:00 105 H 21 98 09/08/23 13:45 104 H 22 98 09/08/23 13:30 105 H 21 98 09/08/23 13:15 105 H 19 97 09/08/23 13:00 105 H 13 98 09/08/23 12:45 105 H 22 99 09/08/23 12:30 105 H 21 99 09/08/23 12:27 105 H 09/08/23 12:15 102 H 20 99 09/08/23 12:08 102 H 09/08/23 12:04 35 09/08/23 12:00 98.9 F 105 H 20 99 35 09/08/23 11:45 102 H 21 99 09/08/23 11:30 101 H 21 99 09/08/23 11:15 99 20 99 09/08/23 11:00 98 20 99 09/08/23 10:45 98 20 99 09/08/23 10:30 100 20 99 09/08/23 10:15 102 H 20 99 09/08/23 10:00 104 H 20 99 09/08/23 09:45 106 H 21 99 09/08/23 09:30 104 H 21 99 09/08/23 09:15 103 H 17 99 09/08/23 09:00 105 H 22 99 09/08/23 08:45 98.3 F 103 H 22 99 35 09/08/23 08:30 101 H 17 99 09/08/23 08:16 99 09/08/23 08:15 99 20 99 07/01/24 08:01 90 09/08/23 08:00 96 20 99 35 09/08/23 07:54 35 09/08/23 07:45 94 21 99 09/08/23 07:30 93 21 99 09/08/23 07:20 90 22 100 09/08/23 07:15 89 20 99 09/08/23 07:10 90 20 99 09/08/23 07:05 86 16 99 09/08/23 07:00 84 20 99 09/08/23 06:55 84 20 99 09/08/23 06:50 87 23 99 09/08/23 06:45 81 20 99 09/08/23 06:40 82 20 99 09/08/23 06:35 81 20 99 09/08/23 06:30 81 20 99 09/08/23 06:25 80 20 99 09/08/23 06:20 80 20 99 09/08/23 06:15 80 21 99 09/08/23 06:10 81 20 99 09/08/23 06:05 81 20 99 09/08/23 06:00 80 20 100 09/08/23 05:55 80 20 99 09/08/23 05:50 80 20 99 09/08/23 05:45 80 20 99 09/08/23 05:40 80 20 99 09/08/23 05:35 80 20 99 09/08/23 05:30 80 20 100 09/08/23 05:25 80 20 100 09/08/23 05:20 80 20 100 09/08/23 05:15 80 20 99 09/08/23 05:10 80 20 100 09/08/23 05:05 80 20 99 09/08/23 05:00 89.6 F L 77 20 99 09/08/23 04:55 74 20 99 09/08/23 04:50 77 20 100 09/08/23 04:45 76 20 99 09/08/23 04:40 78 20 100 09/08/23 04:35 78 21 99 09/08/23 04:30 78 20 99 09/08/23 04:25 76 21 99 09/08/23 04:20 125 H 20 99 09/08/23 04:15 125 H 20 99 09/08/23 04:10 121 H 20 99 09/08/23 04:05 130 H 20 99 09/08/23 04:00 91.6 F L 113 H 20 99 35 09/08/23 03:55 122 H 20 99 09/08/23 03:50 126 H 20 97 09/08/23 03:45 123 H 20 100 09/08/23 03:44 128 H 20 100 09/08/23 03:40 119 H 09/08/23 03:27 114 H 09/08/23 03:25 35 09/08/23 01:58 90 F L 110 H 19 80/55 99 09/08/23 01:35 89.6 F L 113 H 20 99/33 30 09/08/23 01:30 89.6 F L 109 H 20 81/50 97 09/08/23 01:25 89.6 F L 113 H 21 98/33 96 09/08/23 01:15 68 20 96/54 99 09/08/23 01:10 68 14 94/57 100 09/08/23 01:05 66 18 97/57 100 09/08/23 01:00 66 17 118/66 99 09/08/23 00:55 66 16 88/56 100 09/08/23 00:50 66 18 81/51 100 09/08/23 00:45 65 18 79/52 100 09/08/23 00:40 65 18 78/50 100 09/08/23 00:35 65 22 76/50 100 09/08/23 00:30 65 20 74/51 100 09/08/23 00:25 64 22 76/50 100 09/08/23 00:23 22 09/07/23 23:40 65 22 79/53 99 09/07/23 23:35 65 22 78/48 99 09/07/23 23:30 66 22 77/53 99 09/07/23 23:25 66 22 80/56 99 09/07/23 23:20 67 22 59/44 99 09/07/23 23:15 66 22 73/49 99 09/07/23 23:10 67 18 76/49 99 09/07/23 23:09 97.6 F 67 22 76/49 97 35 09/07/23 23:08 35 Intake and Output 09/08/23 09/08/23 09/08/23 06:59 14:59 22:59 Intake Total 1112.867 724.386 6.646 Output Total 225 400 Balance 887.867 324.386 6.646 Intake: IV 1087 521 Dextrose 5% in Water 1, 375 500 000 ml @ 125 mls/hr IV . Q9H12M SANTA with Sodium Bicarb (1 Meq/ml) 150 ml Rx#:[id number] Pressure Bag 12 21 Sodium Chloride 0.9% 1, 600 000 ml @ 200 mls/hr IV . Q5H SANTA Rx#:[id number] cefTRIAXone 1 gm In 100 Sodium Chloride 0.9% 50 ml @ 100 mls/hr IVPB ONCE STA Rx#:[id number] Intake, IV Titration 25.867 203.386 6.646 Amount Insulin Regular 100 unit 88.342 In Sodium Chloride 0.9% 100 ml @ 0.1 UNITS/KG/HR 9.07 mls/hr IV .Q11H9M [facility] Rx#:[id number] Norepinephrine 32 mg In 25.867 75.493 6.646 Sodium Chloride 0.9% 218 ml @ 0.03 MCG/KG/MIN 1.34 mls/hr IV .Q24H [facility] Rx#: [id number] Vasopressin 20 unit In 39.551 Sodium Chloride 0.9% 50 ml @ 0.03 UNITS/MIN 4.59 mls/hr IV .Q11H7M [facility] Rx# :[id number] Output: Urine 225 400 Other: Voiding Method Indwelling Catheter Indwelling Catheter Weight 89.8 kg 89.8 kg ABP, PAP, CO, CI - Last 8 Hours Arterial Blood Pressure 132/60 Arterial Blood Pressure 149/66 Arterial Blood Pressure 139/63 Arterial Blood Pressure 156/71 Arterial Blood Pressure 163/60 Arterial Blood Pressure 113/60 Arterial Blood Pressure 160/72 Arterial Blood Pressure 145/69 Arterial Blood Pressure 130/63 Arterial Blood Pressure 151/70 Arterial Blood Pressure 132/62 Arterial Blood Pressure 111/63 Arterial Blood Pressure 156/67 Arterial Blood Pressure 155/65 Arterial Blood Pressure 141/57 Arterial Blood Pressure 135/58 Arterial Blood Pressure 139/59 Arterial Blood Pressure 149/62 Arterial Blood Pressure 133/58 Arterial Blood Pressure 102/52 Arterial Blood Pressure 139/58 Arterial Blood Pressure 131/56 Arterial Blood Pressure 128/55 PHYSICAL EXAM: VITAL SIGNS: [As above] GENERAL: Intubated, OG with brownish drainage, unresponsive, no sedation HEENT: Normocephalic, mucous membranes dry NECK: Supple, no JVD. CARDIOVASCULAR: S1, S2 regular. Systolic murmur RESPIRATION: Equal air entry, clear to auscultation. ABDOMEN: Soft, nondistended ,nontender . No guarding. no masses palpable. No ascites, No hepatosplenomegaly. LEGS: No edema. no swelling. Prior bilateral great toe amputations. NERVOUS SYSTEM: Unable to assess, unresponsive, Skin: no rash noted Results CBC & Chem 7: 09/08/23 09:15 09/08/23 14:00 Labs: Abnormal Lab Results - Last 24 Hours (Table) 09/07/23 09/07/23 09/07/23 Range/Units 23:05 23:15 23:15 MCV 102.2 H (80.0-100.0) fL MCHC 28.9 L (31.0-37.0) g/dL Plt Count 136 L (150-450) k/uL Neutrophils # 7.8 H (1.3-7.7) k/uL Lymphocytes # 0.5 L (1.0-4.8) k/uL D-Dimer 2.03 H (<0.60) mg/L FEU ABG pH (7.35-7.45) ABG pCO2 (35-45) mmHg ABG pO2 (83-108) mmHg ABG HCO3 (21-25) mmol/L ABG Total CO2 (19-24) mmol/L ABG O2 Saturation (94-97) % Sodium (137-145) mmol/L Potassium (3.5-5.1) mmol/L Chloride (98-107) mmol/L Carbon Dioxide (22-30) mmol/L BUN (9-20) mg/dL Creatinine (0.66-1.25) mg/dL Glucose (74-99) mg/dL POC Glucose (mg/dL) >600 H* (70-110) mg/dL Calcium (8.4-10.2) mg/dL Phosphorus (2.5-4.5) mg/dL Magnesium (1.6-2.3) mg/dL Creatine Kinase (55-170) U/L Troponin I (0.000-0.034) ng/mL Total Protein (6.3-8.2) g/dL Albumin (3.5-5.0) g/dL Procalcitonin (0.02-0.09) ng/mL Cortisol (3.1-22.4) UG/DL Urine Protein (Negative) Urine Glucose (UA) (Negative) Urine Ketones (Negative) Urine Blood (Negative) Urine Bilirubin (Negative) Urine WBC (0-5) /hpf Amorphous Sediment (None) /hpf Urine Bacteria (None) /hpf Hyaline Casts (0-2) /lpf Urine Mucus (None) /hpf Urine Yeast (Budding) (None) /hpf 09/07/23 09/07/23 09/07/23 Range/Units 23:15 23:15 23:15 MCV (80.0-100.0) fL MCHC (31.0-37.0) g/dL Plt Count (150-450) k/uL Neutrophils # (1.3-7.7) k/uL Lymphocytes # (1.0-4.8) k/uL D-Dimer (<0.60) mg/L FEU ABG pH (7.35-7.45) ABG pCO2 (35-45) mmHg ABG pO2 (83-108) mmHg ABG HCO3 (21-25) mmol/L ABG Total CO2 (19-24) mmol/L ABG O2 Saturation (94-97) % Sodium (137-145) mmol/L Potassium 5.2 H (3.5-5.1) mmol/L Chloride 115 H (98-107) mmol/L Carbon Dioxide <5 L* (22-30) mmol/L BUN 134 H* (9-20) mg/dL Creatinine 4.29 H (0.66-1.25) mg/dL Glucose 910 H* (74-99) mg/dL POC Glucose (mg/dL) (70-110) mg/dL Calcium 8.3 L (8.4-10.2) mg/dL Phosphorus 8.6 H (2.5-4.5) mg/dL Magnesium 3.8 H (1.6-2.3) mg/dL Creatine Kinase 882 H (55-170) U/L Troponin I 0.084 H* (0.000-0.034) ng/mL Total Protein 5.3 L (6.3-8.2) g/dL Albumin 3.3 L (3.5-5.0) g/dL Procalcitonin 0.29 H (0.02-0.09) ng/mL Cortisol 28.5 H (3.1-22.4) UG/DL Urine Protein (Negative) Urine Glucose (UA) (Negative) Urine Ketones (Negative) Urine Blood (Negative) Urine Bilirubin (Negative) Urine WBC (0-5) /hpf Amorphous Sediment (None) /hpf Urine Bacteria (None) /hpf Hyaline Casts (0-2) /lpf Urine Mucus (None) /hpf Urine Yeast (Budding) (None) /hpf 09/07/23 09/07/23 09/08/23 Range/Units 23:35 23:59 01:01 MCV (80.0-100.0) fL MCHC (31.0-37.0) g/dL Plt Count (150-450) k/uL Neutrophils # (1.3-7.7) k/uL Lymphocytes # (1.0-4.8) k/uL D-Dimer (<0.60) mg/L FEU ABG pH 7.04 L* (7.35-7.45) ABG pCO2 25 L (35-45) mmHg ABG pO2 204 H (83-108) mmHg ABG HCO3 7 L* (21-25) mmol/L ABG Total CO2 8 L (19-24) mmol/L ABG O2 Saturation 99.7 H (94-97) % Sodium (137-145) mmol/L Potassium (3.5-5.1) mmol/L Chloride (98-107) mmol/L Carbon Dioxide (22-30) mmol/L BUN (9-20) mg/dL Creatinine (0.66-1.25) mg/dL Glucose (74-99) mg/dL POC Glucose (mg/dL) >600 H* (70-110) mg/dL Calcium (8.4-10.2) mg/dL Phosphorus (2.5-4.5) mg/dL Magnesium (1.6-2.3) mg/dL Creatine Kinase (55-170) U/L Troponin I (0.000-0.034) ng/mL Total Protein (6.3-8.2) g/dL Albumin (3.5-5.0) g/dL Procalcitonin (0.02-0.09) ng/mL Cortisol (3.1-22.4) UG/DL Urine Protein 1+ H (Negative) Urine Glucose (UA) 4+ H (Negative) Urine Ketones 1+ H (Negative) Urine Blood Small H (Negative) Urine Bilirubin 1+ H (Negative) Urine WBC 6 H (0-5) /hpf Amorphous Sediment Rare H (None) /hpf Urine Bacteria Rare H (None) /hpf Hyaline Casts 38 H (0-2) /lpf Urine Mucus Occasional H (None) /hpf Urine Yeast (Budding) Occasional H (None) /hpf 09/08/23 09/08/23 09/08/23 Range/Units 01:45 02:29 03:05 MCV (80.0-100.0) fL MCHC (31.0-37.0) g/dL Plt Count (150-450) k/uL Neutrophils # (1.3-7.7) k/uL Lymphocytes # (1.0-4.8) k/uL D-Dimer (<0.60) mg/L FEU ABG pH (7.35-7.45) ABG pCO2 (35-45) mmHg ABG pO2 (83-108) mmHg ABG HCO3 (21-25) mmol/L ABG Total CO2 (19-24) mmol/L ABG O2 Saturation (94-97) % Sodium (137-145) mmol/L Potassium (3.5-5.1) mmol/L Chloride (98-107) mmol/L Carbon Dioxide (22-30) mmol/L BUN (9-20) mg/dL Creatinine (0.66-1.25) mg/dL Glucose (74-99) mg/dL POC Glucose (mg/dL) >600 H* >600 H* >600 H* (70-110) mg/dL Calcium (8.4-10.2) mg/dL Phosphorus (2.5-4.5) mg/dL Magnesium (1.6-2.3) mg/dL Creatine Kinase (55-170) U/L Troponin I (0.000-0.034) ng/mL Total Protein (6.3-8.2) g/dL Albumin (3.5-5.0) g/dL Procalcitonin (0.02-0.09) ng/mL Cortisol (3.1-22.4) UG/DL Urine Protein (Negative) Urine Glucose (UA) (Negative) Urine Ketones (Negative) Urine Blood (Negative) Urine Bilirubin (Negative) Urine WBC (0-5) /hpf Amorphous Sediment (None) /hpf Urine Bacteria (None) /hpf Hyaline Casts (0-2) /lpf Urine Mucus (None) /hpf Urine Yeast (Budding) (None) /hpf 09/08/23 09/08/23 09/08/23 Range/Units 03:35 04:09 04:29 MCV (80.0-100.0) fL MCHC (31.0-37.0) g/dL Plt Count (150-450) k/uL Neutrophils # (1.3-7.7) k/uL Lymphocytes # (1.0-4.8) k/uL D-Dimer (<0.60) mg/L FEU ABG pH 7.10 L* (7.35-7.45) ABG pCO2 30 L (35-45) mmHg ABG pO2 163 H (83-108) mmHg ABG HCO3 9 L* (21-25) mmol/L ABG Total CO2 10 L (19-24) mmol/L ABG O2 Saturation 99.6 H (94-97) % Sodium 149 H (137-145) mmol/L Potassium 3.0 L (3.5-5.1) mmol/L Chloride 123 H (98-107) mmol/L Carbon Dioxide 7 L* (22-30) mmol/L BUN 120 H* (9-20) mg/dL Creatinine 3.55 H (0.66-1.25) mg/dL Glucose 664 H* (74-99) mg/dL POC Glucose (mg/dL) 597 H* (70-110) mg/dL Calcium (8.4-10.2) mg/dL Phosphorus (2.5-4.5) mg/dL Magnesium (1.6-2.3) mg/dL Creatine Kinase (55-170) U/L Troponin I (0.000-0.034) ng/mL Total Protein (6.3-8.2) g/dL Albumin (3.5-5.0) g/dL Procalcitonin (0.02-0.09) ng/mL Cortisol (3.1-22.4) UG/DL Urine Protein (Negative) Urine Glucose (UA) (Negative) Urine Ketones (Negative) Urine Blood (Negative) Urine Bilirubin (Negative) Urine WBC (0-5) /hpf Amorphous Sediment (None) /hpf Urine Bacteria (None) /hpf Hyaline Casts (0-2) /lpf Urine Mucus (None) /hpf Urine Yeast (Budding) (None) /hpf 09/08/23 09/08/23 09/08/23 Range/Units 05:03 05:58 07:05 MCV (80.0-100.0) fL MCHC (31.0-37.0) g/dL Plt Count (150-450) k/uL Neutrophils # (1.3-7.7) k/uL Lymphocytes # (1.0-4.8) k/uL D-Dimer (<0.60) mg/L FEU ABG pH (7.35-7.45) ABG pCO2 (35-45) mmHg ABG pO2 (83-108) mmHg ABG HCO3 (21-25) mmol/L ABG Total CO2 (19-24) mmol/L ABG O2 Saturation (94-97) % Sodium (137-145) mmol/L Potassium (3.5-5.1) mmol/L Chloride (98-107) mmol/L Carbon Dioxide (22-30) mmol/L BUN (9-20) mg/dL Creatinine (0.66-1.25) mg/dL Glucose (74-99) mg/dL POC Glucose (mg/dL) 595 H* 539 H* 565 H* (70-110) mg/dL Calcium (8.4-10.2) mg/dL Phosphorus (2.5-4.5) mg/dL Magnesium (1.6-2.3) mg/dL Creatine Kinase (55-170) U/L Troponin I (0.000-0.034) ng/mL Total Protein (6.3-8.2) g/dL Albumin (3.5-5.0) g/dL Procalcitonin (0.02-0.09) ng/mL Cortisol (3.1-22.4) UG/DL Urine Protein (Negative) Urine Glucose (UA) (Negative) Urine Ketones (Negative) Urine Blood (Negative) Urine Bilirubin (Negative) Urine WBC (0-5) /hpf Amorphous Sediment (None) /hpf Urine Bacteria (None) /hpf Hyaline Casts (0-2) /lpf Urine Mucus (None) /hpf Urine Yeast (Budding) (None) /hpf 09/08/23 09/08/23 09/08/23 Range/Units 08:32 09:15 09:15 MCV (80.0-100.0) fL MCHC (31.0-37.0) g/dL Plt Count 127 L (150-450) k/uL Neutrophils # (1.3-7.7) k/uL Lymphocytes # 0.3 L (1.0-4.8) k/uL D-Dimer (<0.60) mg/L FEU ABG pH (7.35-7.45) ABG pCO2 (35-45) mmHg ABG pO2 (83-108) mmHg ABG HCO3 (21-25) mmol/L ABG Total CO2 (19-24) mmol/L ABG O2 Saturation (94-97) % Sodium 151 H (137-145) mmol/L Potassium 3.2 L (3.5-5.1) mmol/L Chloride 121 H (98-107) mmol/L Carbon Dioxide 16 L (22-30) mmol/L BUN 118 H* (9-20) mg/dL Creatinine 2.99 H (0.66-1.25) mg/dL Glucose 559 H* (74-99) mg/dL POC Glucose (mg/dL) 542 H* (70-110) mg/dL Calcium (8.4-10.2) mg/dL Phosphorus (2.5-4.5) mg/dL Magnesium (1.6-2.3) mg/dL Creatine Kinase 1068 H* (55-170) U/L Troponin I (0.000-0.034) ng/mL Total Protein (6.3-8.2) g/dL Albumin (3.5-5.0) g/dL Procalcitonin (0.02-0.09) ng/mL Cortisol (3.1-22.4) UG/DL Urine Protein (Negative) Urine Glucose (UA) (Negative) Urine Ketones (Negative) Urine Blood (Negative) Urine Bilirubin (Negative) Urine WBC (0-5) /hpf Amorphous Sediment (None) /hpf Urine Bacteria (None) /hpf Hyaline Casts (0-2) /lpf Urine Mucus (None) /hpf Urine Yeast (Budding) (None) /hpf 09/08/23 09/08/23 09/08/23 Range/Units 09:16 10:29 11:22 MCV (80.0-100.0) fL MCHC (31.0-37.0) g/dL Plt Count (150-450) k/uL Neutrophils # (1.3-7.7) k/uL Lymphocytes # (1.0-4.8) k/uL D-Dimer (<0.60) mg/L FEU ABG pH (7.35-7.45) ABG pCO2 (35-45) mmHg ABG pO2 (83-108) mmHg ABG HCO3 (21-25) mmol/L ABG Total CO2 (19-24) mmol/L ABG O2 Saturation (94-97) % Sodium (137-145) mmol/L Potassium (3.5-5.1) mmol/L Chloride (98-107) mmol/L Carbon Dioxide (22-30) mmol/L BUN (9-20) mg/dL Creatinine (0.66-1.25) mg/dL Glucose (74-99) mg/dL POC Glucose (mg/dL) 474 H 442 H 405 H (70-110) mg/dL Calcium (8.4-10.2) mg/dL Phosphorus (2.5-4.5) mg/dL Magnesium (1.6-2.3) mg/dL Creatine Kinase (55-170) U/L Troponin I (0.000-0.034) ng/mL Total Protein (6.3-8.2) g/dL Albumin (3.5-5.0) g/dL Procalcitonin (0.02-0.09) ng/mL Cortisol (3.1-22.4) UG/DL Urine Protein (Negative) Urine Glucose (UA) (Negative) Urine Ketones (Negative) Urine Blood (Negative) Urine Bilirubin (Negative) Urine WBC (0-5) /hpf Amorphous Sediment (None) /hpf Urine Bacteria (None) /hpf Hyaline Casts (0-2) /lpf Urine Mucus (None) /hpf Urine Yeast (Budding) (None) /hpf 09/08/23 09/08/23 09/08/23 Range/Units 13:09 14:00 14:04 MCV (80.0-100.0) fL MCHC (31.0-37.0) g/dL Plt Count (150-450) k/uL Neutrophils # (1.3-7.7) k/uL Lymphocytes # (1.0-4.8) k/uL D-Dimer (<0.60) mg/L FEU ABG pH (7.35-7.45) ABG pCO2 (35-45) mmHg ABG pO2 (83-108) mmHg ABG HCO3 (21-25) mmol/L ABG Total CO2 (19-24) mmol/L ABG O2 Saturation (94-97) % Sodium 151 H (137-145) mmol/L Potassium 3.2 L (3.5-5.1) mmol/L Chloride 124 H (98-107) mmol/L Carbon Dioxide 18 L (22-30) mmol/L BUN 110 H* (9-20) mg/dL Creatinine 2.76 H (0.66-1.25) mg/dL Glucose 332 H (74-99) mg/dL POC Glucose (mg/dL) 329 H 308 H (70-110) mg/dL Calcium 7.3 L (8.4-10.2) mg/dL Phosphorus 2.3 L (2.5-4.5) mg/dL Magnesium 3.0 H (1.6-2.3) mg/dL Creatine Kinase (55-170) U/L Troponin I (0.000-0.034) ng/mL Total Protein (6.3-8.2) g/dL Albumin (3.5-5.0) g/dL Procalcitonin (0.02-0.09) ng/mL Cortisol (3.1-22.4) UG/DL Urine Protein (Negative) Urine Glucose (UA) (Negative) Urine Ketones (Negative) Urine Blood (Negative) Urine Bilirubin (Negative) Urine WBC (0-5) /hpf Amorphous Sediment (None) /hpf Urine Bacteria (None) /hpf Hyaline Casts (0-2) /lpf Urine Mucus (None) /hpf Urine Yeast (Budding) (None) /hpf 07/01/24 07/01/24 Range/Units 15:09 16:03 MCV (80.0-100.0) fL MCHC (31.0-37.0) g/dL Plt Count (150-450) k/uL Neutrophils # (1.3-7.7) k/uL Lymphocytes # (1.0-4.8) k/uL D-Dimer (<0.60) mg/L FEU ABG pH (7.35-7.45) ABG pCO2 (35-45) mmHg ABG pO2 (83-108) mmHg ABG HCO3 (21-25) mmol/L ABG Total CO2 (19-24) mmol/L ABG O2 Saturation (94-97) % Sodium (137-145) mmol/L Potassium (3.5-5.1) mmol/L Chloride (98-107) mmol/L Carbon Dioxide (22-30) mmol/L BUN (9-20) mg/dL Creatinine (0.66-1.25) mg/dL Glucose (74-99) mg/dL POC Glucose (mg/dL) 267 H 279 H (70-110) mg/dL Calcium (8.4-10.2) mg/dL Phosphorus (2.5-4.5) mg/dL Magnesium (1.6-2.3) mg/dL Creatine Kinase (55-170) U/L Troponin I (0.000-0.034) ng/mL Total Protein (6.3-8.2) g/dL Albumin (3.5-5.0) g/dL Procalcitonin (0.02-0.09) ng/mL Cortisol (3.1-22.4) UG/DL Urine Protein (Negative) Urine Glucose (UA) (Negative) Urine Ketones (Negative) Urine Blood (Negative) Urine Bilirubin (Negative) Urine WBC (0-5) /hpf Amorphous Sediment (None) /hpf Urine Bacteria (None) /hpf Hyaline Casts (0-2) /lpf Urine Mucus (None) /hpf Urine Yeast (Budding) (None) /hpf Thrombosis Risk Factor Assmnt - Choose All That Apply Any of the Below Risk Factors Present?: Yes Each Factor Represents 1 point: Medical pt on bed rest Other Risk Factors: Yes Each Risk Factor Represents 2 Points: Age 61-74 years, Central venous access Other congenital or acquired thrombophilia - If yes, enter type in comment: No Thrombosis Risk Factor Assessment Total Risk Factor Score: 5 Thrombosis Risk Factor Assessment Level: High Risk Assessment and Plan Assessment: Acute DKA Severe anion gap metabolic acidosis secondary to the above, on bicarb drip Hypotensive ,hypovolemic shock, pressor dependent Acute hypoxic respiratory failure, mechanical ventilator dependent. Sepsis, secondary to all the above Acute metabolic encephalopathy secondary to all the above Acute rhabdomyolysis Acute renal failure, improving Severe dehydration Diabetes mellitus type 2 CAD, history of OH, stent History of seizure disorder Plan: Continue on current medication resume ,monitoring and symptomatic treatment. ICU management as per injection molding machine setter. DKA protocol. Blood and sputum cultures pending. IV fluids/resuscitation, pressors, bear hugger. Echo pending. prognosis guarded, given multiple complex medical issues. The impression and plan of care has been dictated as directed. : I performed a history and examination of this patient, discussed the same with the dictator. I agree with the dictator's note ,documented as a scribe. Any additional findings or plans will be noted.
[2023-09-08 17:10] LABS: Glucose,Whole Blood 268 mg/dL (70-110)
[2023-09-08 18:12] LABS: Glucose,Whole Blood 251 mg/dL (70-110)
[2023-09-08 19:06] LABS: Glucose,Whole Blood 260 mg/dL (70-110)
[2023-09-08 19:13] LABS: African American GFR (CKD) 30 (>60 ml/min/1.73 sqM); Anion Gap 6 mmol/L; Calcium 7.3 mg/dL (8.4-10.2); Carbon Dioxide 19 mmol/L (22-30); Chloride 126 mmol/L (98-107); Glucose 268 mg/dL (74-99); Magnesium 2.9 mg/dL (1.6-2.3); Non-African American GFR(CKD) 26 (>60 ml/min/1.73 sqM); Phosphorus 1.9 mg/dL (2.5-4.5); Potassium 3.9 mmol/L (3.5-5.1); Sodium 151 mmol/L (137-145)
[2023-09-08 19:18] LABS: Blood Urea Nitrogen 105 mg/dL (9-20)
[2023-09-08 20:09] LABS: Glucose,Whole Blood 200 mg/dL (70-110)
[2023-09-08] MEDS: SODIUM CHLORIDE 0.9% 1,000 ML BAG IV STA ×2 (20:24→22:29)
[2023-09-08 21:20] LABS: Glucose,Whole Blood 166 mg/dL (70-110)
[2023-09-08 22:10] LABS: Glucose,Whole Blood 191 mg/dL (70-110)
[2023-09-08 23:16] LABS: Glucose,Whole Blood 184 mg/dL (70-110)
--- NOTE | 2023-09-08 23:32 | CT ---
EXAMINATION TYPE: CT brain wo con DATE OF EXAM: 09/08/2023 HISTORY: unresponsive, on vent CT DLP: 1286.1 mGycm. Automated Exposure Control for Dose Reduction was Utilized. TECHNIQUE: CT scan of the head is performed without contrast. COMPARISON: CT Brain Without nuclear. FINDINGS: There is no acute intracranial hemorrhage or midline shift identified. There is mild diff use ventricular and sulcal prominence redemonstrated. There is mild to moderate low-attenuation in t he periventricular white matter redemonstrated. Opacified bilateral maxillary sinuses redemonstrated. Opacified bilateral sphenoid sinuses and partial opacification posterior aspect of the ethmoid sinus es redemonstrated . Globes are intact bilaterally. Nasogastric tube and endotracheal tubes are partia lly imaged IMPRESSION: No acute intracranial hemorrhage or midline shift. There is mild diffuse age-related ce rebral atrophy and mild to moderate probable chronic small vessel ischemic change redemonstrated. Par anasal sinus disease redemonstrated. No significant change from most recent prior CT.
--- NOTE | 2023-09-08 23:54 | P.CARDCATH ---
Date of Procedure: 09/08/23 Description of Procedure: HISTORY OF PRESENTING ILLNESS 67-year-old male with past medical history of type 2 diabetes, prior to amputations, dyslipidemia, CAD s/p PCI, seizure disorder. Patient is not able to provide any history as he is intubated and is on ventilator support. Patient was transferred from [facility] yesterday. Apparently patient was found unresponsive by patient's partner and last well-known time was 24 hours before. Initial presentation was consistent with DKA and rhabdomyolysis. On admission his labs showed WBC 8.8, hemoglobin 14.5, BUN 134, creatinine 4.29, glucose 91, lactate 1.1. CPK 882, troponin 0.08. BNP 2720. ECG showed normal sinus rhythm with nonspecific interventricular conduction delay. Repeat labs showed CPK increased to 1068. TSH 1.3. REVIEW OF SYSTEMS 14 point review of system is negative except what is mentioned above in HPI. PHYSICAL EXAMINATION Vital signs reviewed. Head: Normocephalic. Eyes: Sclerae nonicteric. Neck: Brisk carotid upstroke, no jugular venous distention. Lungs: Clear to auscultation. Heart: Regular rate and rhythm, S1-S2, no S3, no murmur or rub. Abdomen: Soft nontender, positive bowel sounds. Extremities: No edema, intact distal pulses. Neuro: Alert, oritented, no focal deficits. Detailed neuro exam was not perf ormed. ASSESSMENT Metabolic encephalopathy, multifactorial likely due to below mentioned reasons Ventilator dependent respiratory failure Acute diabetic ketoacidosis Severe anion gap metabolic acidosis Acute rhabdomyolysis MARIANO, likely severe dehydration Elevated troponin, multifactorial related to poor renal clearance, rhabdomyolysis and respiratory failure. Less likely ACS PAD with prior history of bilateral great toe amputation CAD s/p PCI Nonspecific IVCD on ECG Prior history of seizure disorder Obesity PLAN Continue supportive care for DKA, rhabdomyolysis and respiratory failure wilfred herring as per ICU team Obtain echocardiogram to look for cardiomyopathy Recommend aspirin 81 mg, Lipitor 40 mg Patient's mild troponin elevation is most likely due to combination of poor renal clearance, DKA and abnormalities. Prognosis overall guarded Kendell Jalloh MD, FACC, RPVI Thank you for allowing [facility] to participate in this patient's care. Feel free to reach out in case of any followup questions.
[2023-09-09 00:09] LABS: Glucose,Whole Blood 207 mg/dL (70-110)
[2023-09-09 01:04] LABS: Glucose,Whole Blood 241 mg/dL (70-110)
[2023-09-09 02:20] LABS: Glucose,Whole Blood 176 mg/dL (70-110)
[2023-09-09 03:07] LABS: Glucose,Whole Blood 171 mg/dL (70-110)
[2023-09-09 03:10] LABS: Glucose,Whole Blood 171 mg/dL (70-110)
[2023-09-09 04:12] LABS: Glucose,Whole Blood 180 mg/dL (70-110)
[2023-09-09 04:24] LABS: Basophils % (A) 0 %; Eosinophils % (A) 1 %; HCT 36.9 % (39.0-53.0); Lymphocytes # (A) 0.4 k/uL (1.0-4.8); Lymphocytes % (A) 8 %; MCH 29.9 pg (25.0-35.0); MCHC 32.6 g/dL (31.0-37.0); MCV 91.8 fL (80.0-100.0); Monocytes # (A) 0.2 k/uL (0-1.0); Monocytes % (A) 5 %; Neutrophils # (A) 4.3 k/uL (1.3-7.7); Neutrophils % (A) 85 %; RBC 4.02 m/uL (4.30-5.90); RDW 14.6 % (11.5-15.5)
[2023-09-09 04:34] LABS: ALT 13 U/L (4-49); AST 40 U/L (17-59); African American GFR (CKD) 42 (>60 ml/min/1.73 sqM); Albumin 2.3 g/dL (3.5-5.0); Alkaline Phosphatase 89 U/L (38-126); Anion Gap 6 mmol/L; Blood Urea Nitrogen 88 mg/dL (9-20); Calcium 7.1 mg/dL (8.4-10.2); Carbon Dioxide 17 mmol/L (22-30); Chloride 128 mmol/L (98-107); Glucose 179 mg/dL (74-99); Lipase 1262 U/L (23-300); Non-African American GFR(CKD) 36 (>60 ml/min/1.73 sqM); Phosphorus 1.8 mg/dL (2.5-4.5); Potassium 3.3 mmol/L (3.5-5.1); Sodium 151 mmol/L (137-145); Total Bilirubin 0.4 mg/dL (0.2-1.3); Total Protein 4.3 g/dL (6.3-8.2)
[2023-09-09 05:03] LABS: Glucose,Whole Blood 171 mg/dL (70-110)
[2023-09-09 05:04] LABS: ABG Base Excess -5.5 mmol/L; ABG HCO3 18 mmol/L (21-25); ABG Oxygen Saturation 98.9 % (94-97); ABG PCO2 29 mmHg (35-45); ABG PO2 103 mmHg (83-108); ABG TCO2 19 mmol/L (19-24); Allen Test Performed? Yes
[2023-09-09 05:19] LABS: Platelet Count 62 k/uL (150-450)
[2023-09-09 05:21] LABS: RBC Morphology Normal
[2023-09-09] MEDS ORDERED: Potassium Replacement Protocol 1 EACH MISC MISCELLANE PRN (05:24)
[2023-09-09] MEDS: POTASSIUM BICARBONATE/CIT AC 20 MEQ TABLET.EFF NG-TUBE SCH ×2 (05:46→22:25)
[2023-09-09 05:53] LABS: Glucose,Whole Blood 167 mg/dL (70-110)
[2023-09-09 06:10] LABS: Glucose,Whole Blood 139 mg/dL (70-110)
[2023-09-09 06:54] LABS: Glucose,Whole Blood 167 mg/dL (70-110)
--- NOTE | 2023-09-09 07:04 | CA ---
Transthoracic Echo Report Name: Romel Malin Age: 67 Gender: M : 1955 Exam Date: 09/08/2023 10:59 Exam Location: [facility] Ht (in): 74 Wt (lb): 197 Ordering Physician: Diego Hoang Attending/Referring Phys: Coater Operator Letitia Wood RDCS Procedure CPT: Indications: evaluate LV function Cardiac Hx: Technical Quality: Very technically difficult study Contrast 1: Total Dose (mL): Contrast 2: Total Dose (mL): MEASUREMENTS (Male / Female) Normal Values 2D ECHO LV Diastolic Diameter PLAX 4.1 cm 4.2 - 5.9 / 3.9 - 5.3 cm LV Systolic Diameter PLAX 2.7 cm IVS Diastolic Thickness 1.5 cm 0.6 - 1.0 / 0.6 - 0.9 cm LVPW Diastolic Thickness 1.4 cm 0.6 - 1.0 / 0.6 - 0.9 cm LV Relative Wall Thickness 0.7 RV Internal Dim ED PLAX 3.1 cm LA Systolic Diameter LX 3.4 cm 3.0 - 4.0 / 2.7 - 3.8 cm DOPPLER AV Peak Velocity 199.4 cm/s AV Peak Gradient 15.9 mmHg AV Mean Velocity 148.4 cm/s AV Mean Gradient 9.8 mmHg AV Velocity Time Integral 39.0 cm TR Peak Velocity 267.3 cm/s TR Peak Gradient 28.6 mmHg Right Ventricular Systolic Press 33.6 mmHg FINDINGS Left Ventricle Left ventricular ejection fraction is estimated at 40-45 %. Right Ventricle Normal right ventricular size. Right ventricular systolic pressure within normal limits. Right Atrium Right atrium not well visualized. Left Atrium Normal left atrial size. No left atrial thrombus or mass present. Mitral Valve Mitral valve thickened. Mild mitral annular calcification. Aortic Valve Aortic valve not well visualized. Thickened aortic valve Tricuspid Valve Tricuspid valve not well visualized. Mild tricuspid regurgitation. Pulmonic Valve Pulmonic valve not well visualized. Pericardium No pericardial effusion. Aorta Aortic root and proximal ascending aorta not well visualized. CONCLUSIONS Technically difficult study. Limited study, overall left ventricle systolic function moderately impaired Very limited Doppler study Previewed by: Dr. Shanel Mays MD (Electronically Signed) Final Date: 09 September 2023 07:03
--- NOTE | 2023-09-09 07:54 | XR ---
EXAMINATION TYPE: XR chest 1V DATE OF EXAM: 09/09/2023 COMPARISON: 09/08/2023 HISTORY: 67-year-old male ET tube placement TECHNIQUE: Single frontal view of the chest is obtained. FINDINGS: ET tube tip just below the level of the medial clavicular heads. NG tube courses below the diaphragm. Right IJ CVC tip lower SVC. Slightly lordotic exam partially obscure the heart margins. H eart upper limits of normal in size. Relative upper lung lucency suggesting underlying emphysema. Mil d patchy medial basilar opacities, probably areas of atelectasis. No pleural effusion. IMPRESSION: Suspect underlying COPD. Mild patchy medial basilar densities, likely atelectasis.
[2023-09-09 08:04] LABS: Glucose,Whole Blood 202 mg/dL (70-110)
[2023-09-09] MEDS: ASPIRIN 81 MG PO SCH (08:30)
[2023-09-09] MEDS: PANTOPRAZOLE 40 MG/10 ML VIAL IV SCH (08:30)
[2023-09-09 09:14] LABS: Glucose,Whole Blood 222 mg/dL (70-110)
[2023-09-09 10:47] LABS: Glucose,Whole Blood 217 mg/dL (70-110)
[2023-09-09] MEDS: levETIRAcetam ORAL SOLN 500 MG/5 ML CUP OG-TUBE SCH (11:57)
--- NOTE | 2023-09-09 12:12 | P.PN ---
Subjective Progress Note Date: 09/09/23 Patient is a 67-year-old male with past medical history significant for diabetes mellitus, prior toe amputations, hyperlipidemia, coronary artery disease with previous stents, and seizure disorder. He is currently intubated to the mechanical ventilator, unresponsive without any sedation, unable to provide any information. Patient was transferred from [facility] late last night. Apparently, found unresponsive by his girlfriend, and last known well was 24 hours prior. Patient was intubated by EMS on arrival and triaged to [facility]. Initial presentation was consistent with DKA. Subsequently, the patient was transferred to [facility]. Patient is currently in trauma bay 1, he is intubated mechanical ventilator. Chest x-ray on arrival to our facility shows the endotracheal tube in satisfactory position approximately 4 cm above the mahesh. There is an orogastric tube that should be advanced. Right IJ central line catheter appears to terminate at the Cavo atrial junction. No focal infiltrates or evidence of pneumonia. Current ventilator settings are assist-control, respiratory rate 14, tidal volume 500, FiO2 35%, PEEP of 5. He is breathing slightly above set rate. Not on any sedation. Remains unresponsive even to deep painful stimuli. CT of the brain did not show any acute intracranial hemorrhage or mass effect. ABG is consistent with profound metabolic acidosis, with a PaO2 of 204, pCO2 of 25, pH of 7.04. Patient has been given a total of 2 A of bicarb. He is hypotensive and in a shock state, he has been fluid resuscitated with at least 2.5 L crystalloid fluid. No insulin infusion is currently ordered. He remains profoundly hypotensive, and has been started on norepinephrine which is currently infusing at 0.06 mcg/kg/min. CBC: WBC count 8.8, hemoglobin 14.5, hematocrit 50.3, platelets 136. CMP: Sodium 143, potassium 5.2, chloride 115, serum bicarb less than 5, anion gap unmeasurable, BUN 134, creatinine 4.29, glucose 910. Lactic 1.1. LFTs not elevated. Total bilirubin 0.7. Ammonia less than 9. CPK was 882. Troponin 0.084. NT BNP 2720. EKG shows normal sinus rhythm and is nondiagnostic for acute ischemia. Urinalysis positive for glucose and ketones. Urine toxicology screen at outside facility was essentially negative. Serum alcohol less than 10. Patient will be admitted to the intensive care unit once bed available. Today's evaluation of 09/09/2023, the patient is being seen for a follow-up. The patient remains off sedatives. He is grimacing to painful stimulation. He did have a CAT scan of the brain yesterday that showed no acute abnormalities. Suspect a component of hypoxic encephalopathy as the patient apparently was hypoxic when the patient was picked up by the EMS. At this point in time, the patient is grimacing only to deep painful stimulation. Not following any commands yet. The patient has recovered from his anion gap metabolic acidosis related to DKA. The patient is currently on half-normal saline at rate of 100 cc an hour. Most recent blood work shows a gap of 6 with a serum bicarb of 17. Sodium levels at 151. Potassium level at 3.3 which is being replaced. Blood sugars 879. The patient remains on insulin drip and the patient will be transition to long-acting insulin. Remains on the mechanical ventilator assist- control mode at rate of 20, tidal volume of 500, FiO2 of 35% with a PEEP of 5. Blood gas showed a pH of 7.4 with a pCO2 of 29 and pO2 of 103. The patient was tachypneic volume second mechanical ventilation the patient was switched to pressure control. CVP was 2 and after receiving a total of 3 L of fluid and the CVP came up to 8 and the patient has been off pressors since 11:30 PM yesterday. Cardiac rhythm is sinus. The patient is completing albuterol and loading and the patient is currently on 0.5 mg/min. Echocardiogram was done and patient has an ejection fraction of 40 to 45%. The white cell count today is at 5 with a hemoglobin of 12 and a platelet count of 62. Chest x-ray findings are stable. Some atelectatic changes in lung base bilaterally. No antibiotic coverage at this point in time. Sputum is showing gram-negative bacillus and presumptive Staph aureus. Objective - Vital Signs Vital signs: Vital Signs Temp 99.6 F 09/09/23 08:00 Pulse 95 09/09/23 08:16 Resp 32 H 09/09/23 08:00 BP 80/55 09/08/23 01:58 Pulse Ox 97 09/09/23 08:00 FiO2 35 07/02/24 08:00 Intake & Output 09/08/23 09/09/23 09/09/23 18:59 06:59 18:59 Intake Total 9767.031 5168.680 212 Output Total 595 585 125 Balance 628.710 935.680 87 Weight 89.8 kg 92.6 kg Intake: IV 833 1169 212 D5-0.45% NaCl with KCl 300 200 20Meq/l 1,000 ml @ 150 mls/hr IV .Q6H40M SANTA Rx# :[id number] Dextrose 5% in Water 1, 500 000 ml @ 125 mls/hr IV . Q9H12M SANTA with Sodium Bicarb (1 Meq/ml) 150 ml Rx#:[id number] Pressure Bag 33 69 12 Sodium Chloride 0.45% 1, 900 200 000 ml @ 100 mls/hr IV . Q10H SANTA Rx#:[id number] Intake, IV Titration 390.710 351.680 0 Amount Amiodarone 450 mg In 250 Dextrose 5% in Water 250 ml @ 0.5 MG/MIN 16.667 mls/hr IV .Q15H SANTA Rx#: [id number] Insulin Regular 100 unit 163.141 23.45 In Sodium Chloride 0.9% 100 ml @ 0.1 UNITS/KG/HR 9.07 mls/hr IV .Q11H9M SANTA Rx#:[id number] Insulin Regular 100 unit 23.310 0 In Sodium Chloride 0.9% 100 ml @ Titrate IV .Q0M SANTA Rx#:[id number] Norepinephrine 32 mg In 88.018 5.577 Sodium Chloride 0.9% 218 ml @ 0.03 MCG/KG/MIN 1.34 mls/hr IV .Q24H SANTA Rx#: [id number] Potassium Chloride 10 meq 100 In Water For Injection 1 100ml.bag @ 100 mls/hr IVPB ONCE ONE Rx#: [id number] Vasopressin 20 unit In 39.551 49.343 Sodium Chloride 0.9% 50 ml @ 0.03 UNITS/MIN 4.59 mls/hr IV .Q11H7M SANTA Rx# :[id number] Output: Urine 595 585 125 Other: Voiding Method Indwelling Catheter Indwelling Catheter ABP, PAP, CO, CI - Last Documented Arterial Blood Pressure 123/51 - Exam GENERAL EXAM: Unresponsive, 67-year-old male, intubated to mechanical ventilator, breathing slightly above set rate. HEAD: Normocephalic and atraumatic EYES: Sluggish reaction of pupils, equal size. NOSE: Clear with pink turbinates. THROAT: No erythema or exudates. Dry mucous membranes. NECK: No masses, no JVD. CHEST: No chest wall deformity. LUNGS: Equal air entry with no crackles, wheeze, rhonchi or dullness. Intubated mechanical ventilator. Peak pressures 17. No significant endotracheal secretions. CVS: S1 and S2 normal with no soft systolic murmur, regular rhythm. No extra heart sounds ABDOMEN: Abdomen flat, active bowel sounds, no hepatosplenomegaly, no guarding or rigidity. Orogastric tube with small amount of brown output. SPINE: No scoliosis or deformity SKIN: No rashes CENTRAL NERVOUS SYSTEM: encephalopathic with diminished level of c onsciousness.. No discernible seizure-like activity. Patellar DTRs 1+ bilaterally. Babinski neutral. The patient is grimacing to painful stimulation. EXTREMITIES: There is no peripheral edema, clubbing, or cyanosis. Peripheral pulses are intact. Remote appearing bilateral great toe amputations. - Labs CBC & Chem 7: 09/09/23 04:15 09/09/23 04:15 Labs: Abnormal Lab Results - Last 24 Hours (Table) 09/07/23 09/07/23 09/08/23 Range/Units 23:15 23:15 09:15 RBC (4.30-5.90) m/uL Hgb (13.0-17.5) gm/dL Hct (39.0-53.0) % Plt Count (150-450) k/uL Lymphocytes # (1.0-4.8) k/uL ABG pCO2 (35-45) mmHg ABG HCO3 (21-25) mmol/L ABG O2 Saturation (94-97) % Sodium 151 H (137-145) mmol/L Potassium 3.2 L (3.5-5.1) mmol/L Chloride 121 H (98-107) mmol/L Carbon Dioxide 16 L (22-30) mmol/L BUN 118 H* (9-20) mg/dL Creatinine 2.99 H (0.66-1.25) mg/dL Glucose 559 H* (74-99) mg/dL POC Glucose (mg/dL) (70-110) mg/dL Calcium (8.4-10.2) mg/dL Phosphorus (2.5-4.5) mg/dL Magnesium (1.6-2.3) mg/dL Creatine Kinase 1068 H* (55-170) U/L Total Protein (6.3-8.2) g/dL Albumin (3.5-5.0) g/dL Lipase (23-300) U/L Procalcitonin 0.29 H (0.02-0.09) ng/mL Cortisol 28.5 H (3.1-22.4) UG/DL 09/08/23 09/08/23 09/08/23 Range/Units 09:15 09:16 10:29 RBC (4.30-5.90) m/uL Hgb (13.0-17.5) gm/dL Hct (39.0-53.0) % Plt Count 127 L (150-450) k/uL Lymphocytes # 0.3 L (1.0-4.8) k/uL ABG pCO2 (35-45) mmHg ABG HCO3 (21-25) mmol/L ABG O2 Saturation (94-97) % Sodium (137-145) mmol/L Potassium (3.5-5.1) mmol/L Chloride (98-107) mmol/L Carbon Dioxide (22-30) mmol/L BUN (9-20) mg/dL Creatinine (0.66-1.25) mg/dL Glucose (74-99) mg/dL POC Glucose (mg/dL) 474 H 442 H (70-110) mg/dL Calcium (8.4-10.2) mg/dL Phosphorus (2.5-4.5) mg/dL Magnesium (1.6-2.3) mg/dL Creatine Kinase (55-170) U/L Total Protein (6.3-8.2) g/dL Albumin (3.5-5.0) g/dL Lipase (23-300) U/L Procalcitonin (0.02-0.09) ng/mL Cortisol (3.1-22.4) UG/DL 09/08/23 09/08/23 09/08/23 Range/Units 11:22 13:09 14:00 RBC (4.30-5.90) m/uL Hgb (13.0-17.5) gm/dL Hct (39.0-53.0) % Plt Count (150-450) k/uL Lymphocytes # (1.0-4.8) k/uL ABG pCO2 (35-45) mmHg ABG HCO3 (21-25) mmol/L ABG O2 Saturation (94-97) % Sodium 151 H (137-145) mmol/L Potassium 3.2 L (3.5-5.1) mmol/L Chloride 124 H (98-107) mmol/L Carbon Dioxide 18 L (22-30) mmol/L BUN 110 H* (9-20) mg/dL Creatinine 2.76 H (0.66-1.25) mg/dL Glucose 332 H (74-99) mg/dL POC Glucose (mg/dL) 405 H 329 H (70-110) mg/dL Calcium 7.3 L (8.4-10.2) mg/dL Phosphorus 2.3 L (2.5-4.5) mg/dL Magnesium 3.0 H (1.6-2.3) mg/dL Creatine Kinase (55-170) U/L Total Protein (6.3-8.2) g/dL Albumin (3.5-5.0) g/dL Lipase (23-300) U/L Procalcitonin (0.02-0.09) ng/mL Cortisol (3.1-22.4) UG/DL 09/08/23 09/08/23 09/08/23 Range/Units 14:04 15:09 16:03 RBC (4.30-5.90) m/uL Hgb (13.0-17.5) gm/dL Hct (39.0-53.0) % Plt Count (150-450) k/uL Lymphocytes # (1.0-4.8) k/uL ABG pCO2 (35-45) mmHg ABG HCO3 (21-25) mmol/L ABG O2 Saturation (94-97) % Sodium (137-145) mmol/L Potassium (3.5-5.1) mmol/L Chloride (98-107) mmol/L Carbon Dioxide (22-30) mmol/L BUN (9-20) mg/dL Creatinine (0.66-1.25) mg/dL Glucose (74-99) mg/dL POC Glucose (mg/dL) 308 H 267 H 279 H (70-110) mg/dL Calcium (8.4-10.2) mg/dL Phosphorus (2.5-4.5) mg/dL Magnesium (1.6-2.3) mg/dL Creatine Kinase (55-170) U/L Total Protein (6.3-8.2) g/dL Albumin (3.5-5.0) g/dL Lipase (23-300) U/L Procalcitonin (0.02-0.09) ng/mL Cortisol (3.1-22.4) UG/DL 09/08/23 09/08/23 09/08/23 Range/Units 17:09 18:10 18:42 RBC (4.30-5.90) m/uL Hgb (13.0-17.5) gm/dL Hct (39.0-53.0) % Plt Count (150-450) k/uL Lymphocytes # (1.0-4.8) k/uL ABG pCO2 (35-45) mmHg ABG HCO3 (21-25) mmol/L ABG O2 Saturation (94-97) % Sodium 151 H (137-145) mmol/L Potassium (3.5-5.1) mmol/L Chloride 126 H (98-107) mmol/L Carbon Dioxide 19 L (22-30) mmol/L BUN 105 H* (9-20) mg/dL Creatinine 2.46 H (0.66-1.25) mg/dL Glucose 268 H (74-99) mg/dL POC Glucose (mg/dL) 268 H 251 H (70-110) mg/dL Calcium 7.3 L (8.4-10.2) mg/dL Phosphorus 1.9 L (2.5-4.5) mg/dL Magnesium 2.9 H (1.6-2.3) mg/dL Creatine Kinase (55-170) U/L Total Protein (6.3-8.2) g/dL Albumin (3.5-5.0) g/dL Lipase (23-300) U/L Procalcitonin (0.02-0.09) ng/mL Cortisol (3.1-22.4) UG/DL 09/08/23 09/08/23 09/08/23 Range/Units 19:03 20:08 21:19 RBC (4.30-5.90) m/uL Hgb (13.0-17.5) gm/dL Hct (39.0-53.0) % Plt Count (150-450) k/uL Lymphocytes # (1.0-4.8) k/uL ABG pCO2 (35-45) mmHg ABG HCO3 (21-25) mmol/L ABG O2 Saturation (94-97) % Sodium (137-145) mmol/L Potassium (3.5-5.1) mmol/L Chloride (98-107) mmol/L Carbon Dioxide (22-30) mmol/L BUN (9-20) mg/dL Creatinine (0.66-1.25) mg/dL Glucose (74-99) mg/dL POC Glucose (mg/dL) 260 H 200 H 166 H (70-110) mg/dL Calcium (8.4-10.2) mg/dL Phosphorus (2.5-4.5) mg/dL Magnesium (1.6-2.3) mg/dL Creatine Kinase (55-170) U/L Total Protein (6.3-8.2) g/dL Albumin (3.5-5.0) g/dL Lipase (23-300) U/L Procalcitonin (0.02-0.09) ng/mL Cortisol (3.1-22.4) UG/DL 09/08/23 09/08/23 09/09/23 Range/Units 22:09 23:03 00:07 RBC (4.30-5.90) m/uL Hgb (13.0-17.5) gm/dL Hct (39.0-53.0) % Plt Count (150-450) k/uL Lymphocytes # (1.0-4.8) k/uL ABG pCO2 (35-45) mmHg ABG HCO3 (21-25) mmol/L ABG O2 Saturation (94-97) % Sodium (137-145) mmol/L Potassium (3.5-5.1) mmol/L Chloride (98-107) mmol/L Carbon Dioxide (22-30) mmol/L BUN (9-20) mg/dL Creatinine (0.66-1.25) mg/dL Glucose (74-99) mg/dL POC Glucose (mg/dL) 191 H 184 H 207 H (70-110) mg/dL Calcium (8.4-10.2) mg/dL Phosphorus (2.5-4.5) mg/dL Magnesium (1.6-2.3) mg/dL Creatine Kinase (55-170) U/L Total Protein (6.3-8.2) g/dL Albumin (3.5-5.0) g/dL Lipase (23-300) U/L Procalcitonin (0.02-0.09) ng/mL Cortisol (3.1-22.4) UG/DL 09/09/23 09/09/23 09/09/23 Range/Units 01:02 02:19 03:05 RBC (4.30-5.90) m/uL Hgb (13.0-17.5) gm/dL Hct (39.0-53.0) % Plt Count (150-450) k/uL Lymphocytes # (1.0-4.8) k/uL ABG pCO2 (35-45) mmHg ABG HCO3 (21-25) mmol/L ABG O2 Saturation (94-97) % Sodium (137-145) mmol/L Potassium (3.5-5.1) mmol/L Chloride (98-107) mmol/L Carbon Dioxide (22-30) mmol/L BUN (9-20) mg/dL Creatinine (0.66-1.25) mg/dL Glucose (74-99) mg/dL POC Glucose (mg/dL) 241 H 176 H 171 H (70-110) mg/dL Calcium (8.4-10.2) mg/dL Phosphorus (2.5-4.5) mg/dL Magnesium (1.6-2.3) mg/dL Creatine Kinase (55-170) U/L Total Protein (6.3-8.2) g/dL Albumin (3.5-5.0) g/dL Lipase (23-300) U/L Procalcitonin (0.02-0.09) ng/mL Cortisol (3.1-22.4) UG/DL 09/09/23 09/09/23 09/09/23 Range/Units 03:09 04:10 04:15 RBC 4.02 L (4.30-5.90) m/uL Hgb 12.0 L (13.0-17.5) gm/dL Hct 36.9 L (39.0-53.0) % Plt Count 62 L D (150-450) k/uL Lymphocytes # 0.4 L (1.0-4.8) k/uL ABG pCO2 (35-45) mmHg ABG HCO3 (21-25) mmol/L ABG O2 Saturation (94-97) % Sodium (137-145) mmol/L Potassium (3.5-5.1) mmol/L Chloride (98-107) mmol/L Carbon Dioxide (22-30) mmol/L BUN (9-20) mg/dL Creatinine (0.66-1.25) mg/dL Glucose (74-99) mg/dL POC Glucose (mg/dL) 171 H 180 H (70-110) mg/dL Calcium (8.4-10.2) mg/dL Phosphorus (2.5-4.5) mg/dL Magnesium (1.6-2.3) mg/dL Creatine Kinase (55-170) U/L Total Protein (6.3-8.2) g/dL Albumin (3.5-5.0) g/dL Lipase (23-300) U/L Procalcitonin (0.02-0.09) ng/mL Cortisol (3.1-22.4) UG/DL 09/09/23 09/09/23 09/09/23 Range/Units 04:15 05:00 05:02 RBC (4.30-5.90) m/uL Hgb (13.0-17.5) gm/dL Hct (39.0-53.0) % Plt Count (150-450) k/uL Lymphocytes # (1.0-4.8) k/uL ABG pCO2 29 L (35-45) mmHg ABG HCO3 18 L (21-25) mmol/L ABG O2 Saturation 98.9 H (94-97) % Sodium 151 H (137-145) mmol/L Potassium 3.3 L (3.5-5.1) mmol/L Chloride 128 H (98-107) mmol/L Carbon Dioxide 17 L (22-30) mmol/L BUN 88 H (9-20) mg/dL Creatinine 1.90 H (0.66-1.25) mg/dL Glucose 179 H (74-99) mg/dL POC Glucose (mg/dL) 171 H (70-110) mg/dL Calcium 7.1 L (8.4-10.2) mg/dL Phosphorus 1.8 L (2.5-4.5) mg/dL Magnesium (1.6-2.3) mg/dL Creatine Kinase (55-170) U/L Total Protein 4.3 L (6.3-8.2) g/dL Albumin 2.3 L (3.5-5.0) g/dL Lipase 1262 H (23-300) U/L Procalcitonin (0.02-0.09) ng/mL Cortisol (3.1-22.4) UG/DL 09/09/23 09/09/23 09/09/23 Range/Units 05:52 06:09 06:53 RBC (4.30-5.90) m/uL Hgb (13.0-17.5) gm/dL Hct (39.0-53.0) % Plt Count (150-450) k/uL Lymphocytes # (1.0-4.8) k/uL ABG pCO2 (35-45) mmHg ABG HCO3 (21-25) mmol/L ABG O2 Saturation (94-97) % Sodium (137-145) mmol/L Potassium (3.5-5.1) mmol/L Chloride (98-107) mmol/L Carbon Dioxide (22-30) mmol/L BUN (9-20) mg/dL Creatinine (0.66-1.25) mg/dL Glucose (74-99) mg/dL POC Glucose (mg/dL) 167 H 139 H 167 H (70-110) mg/dL Calcium (8.4-10.2) mg/dL Phosphorus (2.5-4.5) mg/dL Magnesium (1.6-2.3) mg/dL Creatine Kinase (55-170) U/L Total Protein (6.3-8.2) g/dL Albumin (3.5-5.0) g/dL Lipase (23-300) U/L Procalcitonin (0.02-0.09) ng/mL Cortisol (3.1-22.4) UG/DL 09/09/23 Range/Units 08:03 RBC (4.30-5.90) m/uL Hgb (13.0-17.5) gm/dL Hct (39.0-53.0) % Plt Count (150-450) k/uL Lymphocytes # (1.0-4.8) k/uL ABG pCO2 (35-45) mmHg ABG HCO3 (21-25) mmol/L ABG O2 Saturation (94-97) % Sodium (137-145) mmol/L Potassium (3.5-5.1) mmol/L Chloride (98-107) mmol/L Carbon Dioxide (22-30) mmol/L BUN (9-20) mg/dL Creatinine (0.66-1.25) mg/dL Glucose (74-99) mg/dL POC Glucose (mg/dL) 202 H (70-110) mg/dL Calcium (8.4-10.2) mg/dL Phosphorus (2.5-4.5) mg/dL Magnesium (1.6-2.3) mg/dL Creatine Kinase (55-170) U/L Total Protein (6.3-8.2) g/dL Albumin (3.5-5.0) g/dL Lipase (23-300) U/L Procalcitonin (0.02-0.09) ng/mL Cortisol (3.1-22.4) UG/DL Microbiology - Last 24 Hours (Table) 09/08/23 02:40 Gram Stain - Preliminary Sputum Assessment and Plan Assessment: Acute diabetic ketoacidosis, recovered with closure of the anion gap. Severe anion gap metabolic acidosis, secondary to above, normal lactate, recovered the serum bicarb currently is at 17 Hypotension and shock, hypovolemic in nature patient was aggressively Treated with IV fluids. The patient's hemodynamics is stable and the patient is currently off pressors. CVP is up to 8. Mechanical ventilator management, patient was intubated for airway protection, reportedly found unresponsive in the field. Intubated by EMS and then triaged at [facility]. Chest x-ray shows patient has some limited atelectatic changes and infiltrates in lung bases. Sputum is positive for gram-negative bacillus and presumptive Staph aureus. Encephalopathy, rule out anoxic encephalopathy. CAT scan of the brain does not show any not showing any acute abnormalities. Acute rhabdomyolysis, CPK level is still elevated. Acute kidney injury, secondary to combination of above, renal function is improving Elevated troponins, likely supply/demand mismatch History of type 2 diabetes mellitus History of bilateral great toe amputations History of hyperlipidemia History of coronary artery disease with previous PCI/stent History of seizure disorder, no seizure activity noted Encephalopathy secondary to above and the patient is currently off propofol and the mental status being monitored. Plan: Monitor mental status Ventilator setting has been switched to a pressure control mode of mechanical ventilation and the patient was placed on a pressure control of 15, rate of 20, FiO2 of 35% with a PEEP of 5 Continue on the mechanical ventilator. Switch this patient to Levemir insulin 15 units along with NovoLog sliding scale coverage The patient on enteral feeding for nutritional support and dietary consultation was obtained Monitor electrolytes and replace per protocol Continue IV maintenance fluids, the patient is currently on half-normal saline at 100 cc an hour and potassium is being replaced Patient is currently off pressors Echocardiogram was noted and the patient has impaired LV function with an ejection fraction of 40 to 45% Sputum cultures were noted and the patient will be started on IV cefepime 2 g every 12 hours, pending further cultures Neurology consultation Monitor CPK levels Will keep the patient on mechanical ventilator. Will monitor mental status. Will continue to follow make further recommendations based on his progress. There is a critical care evaluation that was done more than 30 minutes. Time with Patient: Greater than 30
[2023-09-09 12:25] LABS: Glucose,Whole Blood 192 mg/dL (70-110)
[2023-09-09] MEDS ORDERED: Phosphorus Replacement Protoco 1 EACH MISC MISCELLANE PRN (12:28)
[2023-09-09] MEDS: CEFEPIME 2 GM in SODIUM CHLORIDE 0.9% 100 ML IVPB SCH (12:51)
--- NOTE | 2023-09-09 13:27 | P.PN ---
Subjective Progress Note Date: 09/08/23 Principal diagnosis: DKA (diabetic ketoacidosis) Altered mental status Hypotension Hypoxia Romel Malin is a 67/M with with past medical history significant for diabetes mellitus, prior toe amputations, hyperlipidemia, CAD and seizure disorder. He was found unresponsive by his girlfriend and was intubated by EMS on arrival, and unable to respond to questions. Patient was triaged and transferred from [facility] last night. Initial presentation was consistent with DKA. In the ED, patient placed on 0.9% NaCl 1L, D5W 5% 1L, Insulin regular IV, Levophed. Right IJ cath and ART line placed and secured. Patient was admitted to ICU and placed mechanical ventilator AC RR 20 TV 500 FiO2 35 PEEP 5. He developed AFib with RVR and was given Amiodarone IV. Currently, patient is intubated, responsive to pain and tachycardic. Na 151 Cl 124 K 3.2 Co2 18 Anion gap 9 Gluc 267. Switched fluids to D5W dextrose with 20 mics of potassium. Continuing to monitor electrolytes and acidosis. Objective - Vital Signs Vital signs: Vital Signs Temp 98.9 F 09/08/23 12:00 Pulse 105 H 09/08/23 13:30 Resp 21 09/08/23 13:30 BP 80/55 09/08/23 01:58 Pulse Ox 98 09/08/23 13:30 FiO2 35 09/08/23 12:04 Intake & Output 09/07/23 09/08/23 09/08/23 18:59 06:59 18:59 Intake Total 1112.867 702.460 Output Total 225 340 Balance 887.867 362.460 Weight 89.8 kg 89.8 kg Intake: IV 1087 518 Dextrose 5% in Water 1, 375 500 000 ml @ 125 mls/hr IV . Q9H12M SANTA with Sodium Bicarb (1 Meq/ml) 150 ml Rx#:[id number] Pressure Bag 12 18 Sodium Chloride 0.9% 1, 600 000 ml @ 200 mls/hr IV . Q5H SANTA Rx#:[id number] cefTRIAXone 1 gm In 100 Sodium Chloride 0.9% 50 ml @ 100 mls/hr IVPB ONCE STA Rx#:[id number] Intake, IV Titration 25.867 184.460 Amount Insulin Regular 100 unit 88.342 In Sodium Chloride 0.9% 100 ml @ 0.1 UNITS/KG/HR 9.07 mls/hr IV .Q11H9M SANTA Rx#:[id number] Norepinephrine 32 mg In 25.867 56.567 Sodium Chloride 0.9% 218 ml @ 0.03 MCG/KG/MIN 1.34 mls/hr IV .Q24H SANTA Rx#: [id number] Vasopressin 20 unit In 39.551 Sodium Chloride 0.9% 50 ml @ 0.03 UNITS/MIN 4.59 mls/hr IV .Q11H7M SANTA Rx# :[id number] Output: Urine 225 340 Other: Voiding Method Indwelling Catheter Indwelling Catheter ABP, PAP, CO, CI - Last Documented Arterial Blood Pressure 156/71 - Exam Vitals reviewed over past 24 hours. Oxygen saturation at 97-98%. Heart rate in the low 100s, no recurrent conversions to AFib. Still on endotrachial tube with ventilation set at AC RR 20 Fio2 35 TV 500 PEEP 5. I&O at the 300s with good UO at 4.45 ml/kg. - EENT Ears: bilateral: unable to vistualize - Neck Neck: Absent: lymphadenopathy, normal ROM, other, rigidity, stridor, thyromegaly Carotids: bilateral: upstroke normal, bruit absent Thyroid: bilateral: normal size - Cardiovascular Heart rate: 109 Rhythm: regular Heart sounds: normal: S1, S2 Abnormal Heart Sounds: Absent: systolic murmur, diastolic murmur, rub, S3 Gallop, S4 Gallop, click, other - Gastrointestinal General gastrointestinal: Present: soft - Integumentary Integumentary: Present: pale - Neurologic Neurologic: Absent: CNII-XII intact, focal deficits - Musculoskeletal Musculoskeletal Comment(s): unable to assess - Psychiatric Psychiatric: Absent: A&O x's 3, appropriate affect, intact judgment & insight - Labs CBC & Chem 7: 09/09/23 04:15 09/09/23 04:15 Labs: Abnormal Lab Results - Last 24 Hours (Table) 09/07/23 09/07/23 09/07/23 Range/Units 23:05 23:15 23:15 MCV 102.2 H (80.0-100.0) fL MCHC 28.9 L (31.0-37.0) g/dL Plt Count 136 L (150-450) k/uL Neutrophils # 7.8 H (1.3-7.7) k/uL Lymphocytes # 0.5 L (1.0-4.8) k/uL D-Dimer 2.03 H (<0.60) mg/L FEU ABG pH (7.35-7.45) ABG pCO2 (35-45) mmHg ABG pO2 (83-108) mmHg ABG HCO3 (21-25) mmol/L ABG Total CO2 (19-24) mmol/L ABG O2 Saturation (94-97) % Sodium (137-145) mmol/L Potassium (3.5-5.1) mmol/L Chloride (98-107) mmol/L Carbon Dioxide (22-30) mmol/L BUN (9-20) mg/dL Creatinine (0.66-1.25) mg/dL Glucose (74-99) mg/dL POC Glucose (mg/dL) >600 H* (70-110) mg/dL Calcium (8.4-10.2) mg/dL Phosphorus (2.5-4.5) mg/dL Magnesium (1.6-2.3) mg/dL Creatine Kinase (55-170) U/L Troponin I (0.000-0.034) ng/mL Total Protein (6.3-8.2) g/dL Albumin (3.5-5.0) g/dL Procalcitonin (0.02-0.09) ng/mL Cortisol (3.1-22.4) UG/DL Urine Protein (Negative) Urine Glucose (UA) (Negative) Urine Ketones (Negative) Urine Blood (Negative) Urine Bilirubin (Negative) Urine WBC (0-5) /hpf Amorphous Sediment (None) /hpf Urine Bacteria (None) /hpf Hyaline Casts (0-2) /lpf Urine Mucus (None) /hpf Urine Yeast (Budding) (None) /hpf 09/07/23 09/07/23 09/07/23 Range/Units 23:15 23:15 23:15 MCV (80.0-100.0) fL MCHC (31.0-37.0) g/dL Plt Count (150-450) k/uL Neutrophils # (1.3-7.7) k/uL Lymphocytes # (1.0-4.8) k/uL D-Dimer (<0.60) mg/L FEU ABG pH (7.35-7.45) ABG pCO2 (35-45) mmHg ABG pO2 (83-108) mmHg ABG HCO3 (21-25) mmol/L ABG Total CO2 (19-24) mmol/L ABG O2 Saturation (94-97) % Sodium (137-145) mmol/L Potassium 5.2 H (3.5-5.1) mmol/L Chloride 115 H (98-107) mmol/L Carbon Dioxide <5 L* (22-30) mmol/L BUN 134 H* (9-20) mg/dL Creatinine 4.29 H (0.66-1.25) mg/dL Glucose 910 H* (74-99) mg/dL POC Glucose (mg/dL) (70-110) mg/dL Calcium 8.3 L (8.4-10.2) mg/dL Phosphorus 8.6 H (2.5-4.5) mg/dL Magnesium 3.8 H (1.6-2.3) mg/dL Creatine Kinase 882 H (55-170) U/L Troponin I 0.084 H* (0.000-0.034) ng/mL Total Protein 5.3 L (6.3-8.2) g/dL Albumin 3.3 L (3.5-5.0) g/dL Procalcitonin 0.29 H (0.02-0.09) ng/mL Cortisol 28.5 H (3.1-22.4) UG/DL Urine Protein (Negative) Urine Glucose (UA) (Negative) Urine Ketones (Negative) Urine Blood (Negative) Urine Bilirubin (Negative) Urine WBC (0-5) /hpf Amorphous Sediment (None) /hpf Urine Bacteria (None) /hpf Hyaline Casts (0-2) /lpf Urine Mucus (None) /hpf Urine Yeast (Budding) (None) /hpf 09/07/23 09/07/23 09/08/23 Range/Units 23:35 23:59 01:01 MCV (80.0-100.0) fL MCHC (31.0-37.0) g/dL Plt Count (150-450) k/uL Neutrophils # (1.3-7.7) k/uL Lymphocytes # (1.0-4.8) k/uL D-Dimer (<0.60) mg/L FEU ABG pH 7.04 L* (7.35-7.45) ABG pCO2 25 L (35-45) mmHg ABG pO2 204 H (83-108) mmHg ABG HCO3 7 L* (21-25) mmol/L ABG Total CO2 8 L (19-24) mmol/L ABG O2 Saturation 99.7 H (94-97) % Sodium (137-145) mmol/L Potassium (3.5-5.1) mmol/L Chloride (98-107) mmol/L Carbon Dioxide (22-30) mmol/L BUN (9-20) mg/dL Creatinine (0.66-1.25) mg/dL Glucose (74-99) mg/dL POC Glucose (mg/dL) >600 H* (70-110) mg/dL Calcium (8.4-10.2) mg/dL Phosphorus (2.5-4.5) mg/dL Magnesium (1.6-2.3) mg/dL Creatine Kinase (55-170) U/L Troponin I (0.000-0.034) ng/mL Total Protein (6.3-8.2) g/dL Albumin (3.5-5.0) g/dL Procalcitonin (0.02-0.09) ng/mL Cortisol (3.1-22.4) UG/DL Urine Protein 1+ H (Negative) Urine Glucose (UA) 4+ H (Negative) Urine Ketones 1+ H (Negative) Urine Blood Small H (Negative) Urine Bilirubin 1+ H (Negative) Urine WBC 6 H (0-5) /hpf Amorphous Sediment Rare H (None) /hpf Urine Bacteria Rare H (None) /hpf Hyaline Casts 38 H (0-2) /lpf Urine Mucus Occasional H (None) /hpf Urine Yeast (Budding) Occasional H (None) /hpf 09/08/23 09/08/23 09/08/23 Range/Units 01:45 02:29 03:05 MCV (80.0-100.0) fL MCHC (31.0-37.0) g/dL Plt Count (150-450) k/uL Neutrophils # (1.3-7.7) k/uL Lymphocytes # (1.0-4.8) k/uL D-Dimer (<0.60) mg/L FEU ABG pH (7.35-7.45) ABG pCO2 (35-45) mmHg ABG pO2 (83-108) mmHg ABG HCO3 (21-25) mmol/L ABG Total CO2 (19-24) mmol/L ABG O2 Saturation (94-97) % Sodium (137-145) mmol/L Potassium (3.5-5.1) mmol/L Chloride (98-107) mmol/L Carbon Dioxide (22-30) mmol/L BUN (9-20) mg/dL Creatinine (0.66-1.25) mg/dL Glucose (74-99) mg/dL POC Glucose (mg/dL) >600 H* >600 H* >600 H* (70-110) mg/dL Calcium (8.4-10.2) mg/dL Phosphorus (2.5-4.5) mg/dL Magnesium (1.6-2.3) mg/dL Creatine Kinase (55-170) U/L Troponin I (0.000-0.034) ng/mL Total Protein (6.3-8.2) g/dL Albumin (3.5-5.0) g/dL Procalcitonin (0.02-0.09) ng/mL Cortisol (3.1-22.4) UG/DL Urine Protein (Negative) Urine Glucose (UA) (Negative) Urine Ketones (Negative) Urine Blood (Negative) Urine Bilirubin (Negative) Urine WBC (0-5) /hpf Amorphous Sediment (None) /hpf Urine Bacteria (None) /hpf Hyaline Casts (0-2) /lpf Urine Mucus (None) /hpf Urine Yeast (Budding) (None) /hpf 09/08/23 09/08/23 09/08/23 Range/Units 03:35 04:09 04:29 MCV (80.0-100.0) fL MCHC (31.0-37.0) g/dL Plt Count (150-450) k/uL Neutrophils # (1.3-7.7) k/uL Lymphocytes # (1.0-4.8) k/uL D-Dimer (<0.60) mg/L FEU ABG pH 7.10 L* (7.35-7.45) ABG pCO2 30 L (35-45) mmHg ABG pO2 163 H (83-108) mmHg ABG HCO3 9 L* (21-25) mmol/L ABG Total CO2 10 L (19-24) mmol/L ABG O2 Saturation 99.6 H (94-97) % Sodium 149 H (137-145) mmol/L Potassium 3.0 L (3.5-5.1) mmol/L Chloride 123 H (98-107) mmol/L Carbon Dioxide 7 L* (22-30) mmol/L BUN 120 H* (9-20) mg/dL Creatinine 3.55 H (0.66-1.25) mg/dL Glucose 664 H* (74-99) mg/dL POC Glucose (mg/dL) 597 H* (70-110) mg/dL Calcium (8.4-10.2) mg/dL Phosphorus (2.5-4.5) mg/dL Magnesium (1.6-2.3) mg/dL Creatine Kinase (55-170) U/L Troponin I (0.000-0.034) ng/mL Total Protein (6.3-8.2) g/dL Albumin (3.5-5.0) g/dL Procalcitonin (0.02-0.09) ng/mL Cortisol (3.1-22.4) UG/DL Urine Protein (Negative) Urine Glucose (UA) (Negative) Urine Ketones (Negative) Urine Blood (Negative) Urine Bilirubin (Negative) Urine WBC (0-5) /hpf Amorphous Sediment (None) /hpf Urine Bacteria (None) /hpf Hyaline Casts (0-2) /lpf Urine Mucus (None) /hpf Urine Yeast (Budding) (None) /hpf 09/08/23 09/08/23 09/08/23 Range/Units 05:03 05:58 07:05 MCV (80.0-100.0) fL MCHC (31.0-37.0) g/dL Plt Count (150-450) k/uL Neutrophils # (1.3-7.7) k/uL Lymphocytes # (1.0-4.8) k/uL D-Dimer (<0.60) mg/L FEU ABG pH (7.35-7.45) ABG pCO2 (35-45) mmHg ABG pO2 (83-108) mmHg ABG HCO3 (21-25) mmol/L ABG Total CO2 (19-24) mmol/L ABG O2 Saturation (94-97) % Sodium (137-145) mmol/L Potassium (3.5-5.1) mmol/L Chloride (98-107) mmol/L Carbon Dioxide (22-30) mmol/L BUN (9-20) mg/dL Creatinine (0.66-1.25) mg/dL Glucose (74-99) mg/dL POC Glucose (mg/dL) 595 H* 539 H* 565 H* (70-110) mg/dL Calcium (8.4-10.2) mg/dL Phosphorus (2.5-4.5) mg/dL Magnesium (1.6-2.3) mg/dL Creatine Kinase (55-170) U/L Troponin I (0.000-0.034) ng/mL Total Protein (6.3-8.2) g/dL Albumin (3.5-5.0) g/dL Procalcitonin (0.02-0.09) ng/mL Cortisol (3.1-22.4) UG/DL Urine Protein (Negative) Urine Glucose (UA) (Negative) Urine Ketones (Negative) Urine Blood (Negative) Urine Bilirubin (Negative) Urine WBC (0-5) /hpf Amorphous Sediment (None) /hpf Urine Bacteria (None) /hpf Hyaline Casts (0-2) /lpf Urine Mucus (None) /hpf Urine Yeast (Budding) (None) /hpf 09/08/23 09/08/23 09/08/23 Range/Units 08:32 09:15 09:15 MCV (80.0-100.0) fL MCHC (31.0-37.0) g/dL Plt Count 127 L (150-450) k/uL Neutrophils # (1.3-7.7) k/uL Lymphocytes # 0.3 L (1.0-4.8) k/uL D-Dimer (<0.60) mg/L FEU ABG pH (7.35-7.45) ABG pCO2 (35-45) mmHg ABG pO2 (83-108) mmHg ABG HCO3 (21-25) mmol/L ABG Total CO2 (19-24) mmol/L ABG O2 Saturation (94-97) % Sodium 151 H (137-145) mmol/L Potassium 3.2 L (3.5-5.1) mmol/L Chloride 121 H (98-107) mmol/L Carbon Dioxide 16 L (22-30) mmol/L BUN 118 H* (9-20) mg/dL Creatinine 2.99 H (0.66-1.25) mg/dL Glucose 559 H* (74-99) mg/dL POC Glucose (mg/dL) 542 H* (70-110) mg/dL Calcium (8.4-10.2) mg/dL Phosphorus (2.5-4.5) mg/dL Magnesium (1.6-2.3) mg/dL Creatine Kinase 1068 H* (55-170) U/L Troponin I (0.000-0.034) ng/mL Total Protein (6.3-8.2) g/dL Albumin (3.5-5.0) g/dL Procalcitonin (0.02-0.09) ng/mL Cortisol (3.1-22.4) UG/DL Urine Protein (Negative) Urine Glucose (UA) (Negative) Urine Ketones (Negative) Urine Blood (Negative) Urine Bilirubin (Negative) Urine WBC (0-5) /hpf Amorphous Sediment (None) /hpf Urine Bacteria (None) /hpf Hyaline Casts (0-2) /lpf Urine Mucus (None) /hpf Urine Yeast (Budding) (None) /hpf 09/08/23 09/08/23 09/08/23 Range/Units 09:16 10:29 11:22 MCV (80.0-100.0) fL MCHC (31.0-37.0) g/dL Plt Count (150-450) k/uL Neutrophils # (1.3-7.7) k/uL Lymphocytes # (1.0-4.8) k/uL D-Dimer (<0.60) mg/L FEU ABG pH (7.35-7.45) ABG pCO2 (35-45) mmHg ABG pO2 (83-108) mmHg ABG HCO3 (21-25) mmol/L ABG Total CO2 (19-24) mmol/L ABG O2 Saturation (94-97) % Sodium (137-145) mmol/L Potassium (3.5-5.1) mmol/L Chloride (98-107) mmol/L Carbon Dioxide (22-30) mmol/L BUN (9-20) mg/dL Creatinine (0.66-1.25) mg/dL Glucose (74-99) mg/dL POC Glucose (mg/dL) 474 H 442 H 405 H (70-110) mg/dL Calcium (8.4-10.2) mg/dL Phosphorus (2.5-4.5) mg/dL Magnesium (1.6-2.3) mg/dL Creatine Kinase (55-170) U/L Troponin I (0.000-0.034) ng/mL Total Protein (6.3-8.2) g/dL Albumin (3.5-5.0) g/dL Procalcitonin (0.02-0.09) ng/mL Cortisol (3.1-22.4) UG/DL Urine Protein (Negative) Urine Glucose (UA) (Negative) Urine Ketones (Negative) Urine Blood (Negative) Urine Bilirubin (Negative) Urine WBC (0-5) /hpf Amorphous Sediment (None) /hpf Urine Bacteria (None) /hpf Hyaline Casts (0-2) /lpf Urine Mucus (None) /hpf Urine Yeast (Budding) (None) /hpf 09/08/23 09/08/23 Range/Units 13:09 14:04 MCV (80.0-100.0) fL MCHC (31.0-37.0) g/dL Plt Count (150-450) k/uL Neutrophils # (1.3-7.7) k/uL Lymphocytes # (1.0-4.8) k/uL D-Dimer (<0.60) mg/L FEU ABG pH (7.35-7.45) ABG pCO2 (35-45) mmHg ABG pO2 (83-108) mmHg ABG HCO3 (21-25) mmol/L ABG Total CO2 (19-24) mmol/L ABG O2 Saturation (94-97) % Sodium (137-145) mmol/L Potassium (3.5-5.1) mmol/L Chloride (98-107) mmol/L Carbon Dioxide (22-30) mmol/L BUN (9-20) mg/dL Creatinine (0.66-1.25) mg/dL Glucose (74-99) mg/dL POC Glucose (mg/dL) 329 H 308 H (70-110) mg/dL Calcium (8.4-10.2) mg/dL Phosphorus (2.5-4.5) mg/dL Magnesium (1.6-2.3) mg/dL Creatine Kinase (55-170) U/L Troponin I (0.000-0.034) ng/mL Total Protein (6.3-8.2) g/dL Albumin (3.5-5.0) g/dL Procalcitonin (0.02-0.09) ng/mL Cortisol (3.1-22.4) UG/DL Urine Protein (Negative) Urine Glucose (UA) (Negative) Urine Ketones (Negative) Urine Blood (Negative) Urine Bilirubin (Negative) Urine WBC (0-5) /hpf Amorphous Sediment (None) /hpf Urine Bacteria (None) /hpf Hyaline Casts (0-2) /lpf Urine Mucus (None) /hpf Urine Yeast (Budding) (None) /hpf - Imaging and Cardiology Chest x-ray: report reviewed (for ET tube repositioning) Assessment and Plan Assessment: Diabetic ketoacidosis Altered mental status AFib with Rapid Vetricular Response Hypoxia Plan: Continue NPO Continue insulin Continue amiodarone Give 1L 0.45% normal saline discontinue bicarbonate IV decrease titration of levophed Time with Patient: Greater than 30
[2023-09-09] MEDS: SODIUM PHOSPHATE 30 MMOL in DEXTROSE 5% IN WATER 250 ML IVPB ONE (13:44)
[2023-09-09] MEDS: AMIODARONE 200 MG TAB PO SCH (13:45)
[2023-09-09 14:14] LABS: Glucose,Whole Blood 182 mg/dL (70-110)
--- NOTE | 2023-09-09 15:46 | P.CNNES ---
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 History is obtained from medical record and the patient's nurse. It seems the patient was found unresponsive by his girlfriend 24 hours prior as a result patient was taken to [facility] and the patient had presentation of DKA. According to the nurse it seems that the patient resides in a nursing facility but he checked himself out and went with girlfriend and he was drinking sodas. The patient has underlying history of seizures and is on Keppra 500 mg every 12 hours. Trigger on presentation serum was 910 and his glucose has improved per the nurse the patient has been in our facility since late 09/07/2023 and has not been the duration but continues to be intubated on ventilator and he continues to be on awake of all and not following commands. Some of the work-up during this hospital visit consisted of: Patient is afebrile and the white blood cell has been normal Initial presentation to our facility his serum glucose was 910 Initially creatinine is 4.29 calcium is 8.3, phosphorus 8.6 Current phosphorus is 1.8, magnesium is 2.9 TSH is 1.350 clinically ammonia level is less than 9 CK level is [address] of the head is reported as no acute intracranial hemorrhage or midline shift. There is mild diffuse age-related cerebral atrophy and mild to moderate probable chronic small vessel ischemic change redemonstrated. No significant change from most recent prior CT. Personally reviewed the CT and I agree there is no acute or subacute ischemia. Echo is reported as technically difficult study. Limited study. Overall left ventricle systolic function moderately impaired Review of Systems Limited but the pertinent positive and negative as per HPI. Past Medical History Past Medical History: Coronary Artery Disease (CAD), Diabetes Mellitus, Myocardial Infarction ([place]), Seizure Disorder Last Myocardial Infarction Date:: unknown History of Any Multi-Drug Resistant Organisms: Unobtainable Past Surgical History: Heart Catheterization With Stent Additional Past Surgical History / Comment(s): shyla big toe removal Date of Last Stent Placement:: unknown Past Psychological History: Unable to Obtain Smoking Status: Never smoker Past Alcohol Use History: None Reported Past Drug Use History: None Reported Medications and Allergies Home Medications Medication Instructions Recorded Confirmed Type Ascorbic Acid [Vitamin C] 500 mg PO BID 09/08/23 09/08/23 History Atorvastatin [Lipitor] 40 mg PO HS 09/08/23 09/08/23 History Cetirizine HCl [Zyrtec] 10 mg PO HS 09/08/23 09/08/23 History Cholecalciferol (Vitamin D3) 1,250 mcg PO WEEKLY 09/08/23 09/08/23 History [Vitamin D3 (1250 Mcg = 50,000 Iu)] Clopidogrel [Plavix] 75 mg PO DAILY 09/08/23 09/08/23 History Empagliflozin [Jardiance] 10 mg PO DAILY 09/08/23 09/08/23 History Escitalopram [Lexapro] 10 mg PO DAILY 09/08/23 09/08/23 History Furosemide [Lasix] 20 mg PO DAILY 09/08/23 09/08/23 History Insulin Glargine,Hum.rec.anlog 27 units SQ HS 09/08/23 09/08/23 History [Lantus Solostar Pen] Isosorbide Mononitrate ER [Imdur] 30 mg PO DAILY 09/08/23 09/08/23 History Potassium Chloride [Klor-Con M10] 10 meq PO DAILY 09/08/23 09/08/23 History amLODIPine [Norvasc] 5 mg PO DAILY 09/08/23 09/08/23 History carvediloL [Coreg] 25 mg PO BID 09/08/23 09/08/23 History hydrALAZINE HCL [Apresoline] 50 mg PO TID 09/08/23 09/08/23 History levETIRAcetam [Keppra] 500 mg PO Q12HR 09/08/23 09/08/23 History lisinopriL [Lisinopril] 40 mg PO HS 09/08/23 09/08/23 History metFORMIN HCL ER [Glucophage XR] 1,000 mg PO W/SUPPER 09/08/23 09/08/23 History tiZANidine [Zanaflex] 4 mg PO TID 09/08/23 09/08/23 History traZODone HCL [Desyrel] 50 mg PO HS 09/08/23 09/08/23 History Allergies Allergy/AdvReac Type Severity Reaction Status Date / Time No Known Allergies Allergy Verified 09/08/23 10:10 Physical Examination - Vital Signs Vital Signs: Vital Signs Temp Pulse Resp Pulse Ox FiO2 09/09/23 15:15 35 09/09/23 14:15 98 13 96 09/09/23 14:00 96 18 96 09/09/23 13:45 101 H 9 L 96 09/09/23 13:30 98 12 96 09/09/23 13:15 97 9 L 96 09/09/23 13:00 96 6 L 97 09/09/23 12:45 99 20 97 09/09/23 12:30 97 20 97 09/09/23 12:15 99 20 97 09/09/23 12:00 99.6 F 99 20 97 35 09/09/23 11:45 102 H 22 96 09/09/23 11:30 100 16 96 09/09/23 11:15 100 21 96 09/09/23 11:00 100 20 96 09/09/23 10:52 35 09/09/23 10:45 100 20 97 09/09/23 10:30 96 20 96 09/09/23 10:15 99 20 96 09/09/23 10:00 93 20 97 09/09/23 09:45 97 20 97 09/09/23 09:30 98 14 97 09/09/23 09:15 97 20 96 09/09/23 09:00 96 20 97 09/09/23 08:45 96 31 H 97 09/09/23 08:30 95 30 H 97 09/09/23 08:16 95 09/09/23 08:15 96 30 H 98 09/09/23 08:06 95 09/09/23 08:00 99.6 F 96 32 H 97 35 09/09/23 07:45 96 30 H 97 09/09/23 07:32 35 09/09/23 07:30 98 23 97 09/09/23 07:15 101 H 30 H 97 09/09/23 07:00 100 28 H 97 09/09/23 06:45 99 24 97 09/09/23 06:30 101 H 26 H 96 09/09/23 06:15 102 H 25 H 98 09/09/23 06:00 101 H 23 97 09/09/23 05:45 101 H 20 97 09/09/23 05:30 101 H 25 H 96 09/09/23 05:15 100 22 96 09/09/23 05:00 101 H 27 H 97 09/09/23 04:45 101 H 27 H 96 09/09/23 04:30 101 H 25 H 97 09/09/23 04:15 102 H 28 H 96 09/09/23 04:09 35 09/09/23 04:00 99.8 F H 101 H 24 96 35 09/09/23 03:45 101 H 25 H 96 09/09/23 03:30 100 24 96 09/09/23 03:15 101 H 24 96 09/09/23 03:00 101 H 25 H 96 09/09/23 02:45 104 H 21 96 09/09/23 02:30 102 H 25 H 97 09/09/23 02:15 102 H 23 98 09/09/23 02:00 101 H 23 97 09/09/23 01:45 100 23 97 09/09/23 01:30 101 H 25 H 97 09/09/23 01:15 98 23 97 09/09/23 01:00 100 24 97 09/09/23 00:45 99 2 L 97 09/09/23 00:30 99 20 97 09/09/23 00:17 98 09/09/23 00:15 97 20 97 09/09/23 00:14 35 09/09/23 00:00 96 20 97 35 09/08/23 23:45 96 20 97 09/08/23 23:30 93 20 94 L 09/08/23 23:29 93 20 09/08/23 23:00 96 20 09/08/23 22:45 96 20 98 09/08/23 22:30 98 20 98 09/08/23 22:15 101 H 20 98 09/08/23 22:00 104 H 20 97 09/08/23 21:45 103 H 20 97 09/08/23 21:30 100 20 97 09/08/23 21:15 98 20 98 09/08/23 21:00 98 20 98 09/08/23 20:45 100 20 98 09/08/23 20:40 102 H 09/08/23 20:30 100 20 99 07/01/24 20:25 100 09/08/23 20:22 35 09/08/23 20:15 102 H 20 98 09/08/23 20:00 98.7 F 103 H 20 98 35 09/08/23 19:45 105 H 20 98 09/08/23 19:30 105 H 20 98 09/08/23 19:15 108 H 20 98 09/08/23 19:07 107 H 20 98 09/08/23 19:00 109 H 14 98 09/08/23 18:45 108 H 7 L 98 09/08/23 18:30 107 H 0 L 98 09/08/23 18:15 109 H 10 L 98 09/08/23 18:00 109 H 0 L 98 09/08/23 17:45 110 H 0 L 98 09/08/23 17:30 111 H 20 98 09/08/23 17:15 110 H 20 98 09/08/23 17:00 110 H 20 98 09/08/23 16:45 110 H 23 98 09/08/23 16:30 110 H 19 98 09/08/23 16:15 107 H 22 98 09/08/23 16:00 98.5 F 105 H 18 98 35 09/08/23 15:49 105 H 09/08/23 15:46 35 09/08/23 15:45 105 H 21 100 09/08/23 15:38 104 H 09/08/23 15:30 106 H 21 98 Intake and Output 09/09/23 09/09/23 09/09/23 06:59 14:59 22:59 Intake Total 8853.654 2511.874 Output Total 390 835 Balance 782.270 422.874 Intake: IV 848 1098 Pressure Bag 48 48 Sodium Chloride 0.45% 1, 800 800 000 ml @ 100 mls/hr IV . Q10H S[facility]A Rx#:[id number] Sodium Phosphate 30 mmol 250 In Dextrose 5% in Water 250 ml @ 65 mls/hr IVPB ONCE ONE Rx#:[id number] Intake, IV Titration 324.270 104.874 Amount Amiodarone 450 mg In 250 Dextrose 5% in Water 250 ml @ 0.5 MG/MIN 16.667 mls/hr IV .Q15H [facility]ANTA Rx#: [id number] Cefepime 2 gm In Sodium 100 Chloride 0.9% 100 ml @ 25 mls/hr IVPB Q12HR [facility] Rx #:[id number] Insulin Regular 100 unit 23.310 4.874 In Sodium Chloride 0.9% 100 ml @ Titrate IV .Q0M [facility]A Rx#:[id number] Norepinephrine 32 mg In 1.617 Sodium Chloride 0.9% 218 ml @ 0.03 MCG/KG/MIN 1.34 mls/hr IV .Q24H [facility]A Rx#: [id number] Vasopressin 20 unit In 49.343 Sodium Chloride 0.9% 50 ml @ 0.03 UNITS/MIN 4.59 mls/hr IV .Q11H7M [facility] Rx# :[id number] Other 55 Output: Urine 390 835 Other: Voiding Method Indwelling Catheter Indwelling Catheter Weight 92.6 kg 92.6 kg ABP, PAP, CO, CI - Last 8 Hours Arterial Blood Pressure 139/57 Arterial Blood Pressure 124/55 Arterial Blood Pressure 137/60 Arterial Blood Pressure 127/55 Arterial Blood Pressure 132/57 Arterial Blood Pressure 130/55 Arterial Blood Pressure 145/60 Arterial Blood Pressure 134/57 Arterial Blood Pressure 129/58 Arterial Blood Pressure 141/59 Arterial Blood Pressure 128/60 Arterial Blood Pressure 128/58 Arterial Blood Pressure 122/69 Arterial Blood Pressure 124/58 Arterial Blood Pressure 117/55 Arterial Blood Pressure 114/54 Arterial Blood Pressure 127/55 Arterial Blood Pressure 117/54 Arterial Blood Pressure 116/53 Arterial Blood Pressure 120/54 Arterial Blood Pressure 109/49 Arterial Blood Pressure 139/55 Arterial Blood Pressure 127/52 Arterial Blood Pressure 122/51 Arterial Blood Pressure 123/51 Arterial Blood Pressure 242/153 Arterial Blood Pressure 116/52 General: Lying in bed and does not appear in acute distress. HENT: Supple neck. Lung: Intubated on ventilator Neuro: Very limited. Is comatose GCS 3 (E1, VT1, M1). I had to manually opens the eyes and is about 2mm and reactive to light bilaterally. Primary gaze is midline. Is breathing over the vent. Positive gag reflex. Motor: Strength is very limited. No sponteanous movement. No withdrawal to painful stimuli. Reflex: 1+ throughout. Plantars: Mute bilaterally. Results - Laboratory Findings CBC and BMP: 09/09/23 04:15 09/09/23 04:15 Abnormal Lab Findings: Abnormal Labs 09/07/23 09/07/23 09/07/23 23:05 23:15 23:15 RBC Hgb Hct MCV 102.2 H MCHC 28.9 L Plt Count 136 L Neutrophils # 7.8 H Lymphocytes # 0.5 L D-Dimer 2.03 H ABG pH ABG pCO2 ABG pO2 ABG HCO3 ABG Total CO2 ABG O2 Saturation Sodium Potassium Chloride Carbon Dioxide BUN Creatinine Glucose POC Glucose (mg/dL) >600 H* Hemoglobin A1c Calcium Phosphorus Magnesium Creatine Kinase Troponin I Total Protein Albumin Lipase Procalcitonin Cortisol Urine Protein Urine Glucose (UA) Urine Ketones Urine Blood Urine Bilirubin Urine WBC Amorphous Sediment Urine Bacteria Hyaline Casts Urine Mucus Urine Yeast (Budding) 09/07/23 09/07/23 09/07/23 23:15 23:15 23:15 RBC Hgb Hct MCV MCHC Plt Count Neutrophils # Lymphocytes # D-Dimer ABG pH ABG pCO2 ABG pO2 ABG HCO3 ABG Total CO2 ABG O2 Saturation Sodium Potassium 5.2 H Chloride 115 H Carbon Dioxide <5 L* BUN 134 H* Creatinine 4.29 H Glucose 910 H* POC Glucose (mg/dL) Hemoglobin A1c Calcium 8.3 L Phosphorus 8.6 H Magnesium 3.8 H Creatine Kinase 882 H Troponin I 0.084 H* Total Protein 5.3 L Albumin 3.3 L Lipase Procalcitonin 0.29 H Cortisol 28.5 H Urine Protein Urine Glucose (UA) Urine Ketones Urine Blood Urine Bilirubin Urine WBC Amorphous Sediment Urine Bacteria Hyaline Casts Urine Mucus Urine Yeast (Budding) 09/07/23 09/07/23 09/08/23 23:35 23:59 01:01 RBC Hgb Hct MCV MCHC Plt Count Neutrophils # Lymphocytes # D-Dimer ABG pH 7.04 L* ABG pCO2 25 L ABG pO2 204 H ABG HCO3 7 L* ABG Total CO2 8 L ABG O2 Saturation 99.7 H Sodium Potassium Chloride Carbon Dioxide BUN Creatinine Glucose POC Glucose (mg/dL) >600 H* Hemoglobin A1c Calcium Phosphorus Magnesium Creatine Kinase Troponin I Total Protein Albumin Lipase Procalcitonin Cortisol Urine Protein 1+ H Urine Glucose (UA) 4+ H Urine Ketones 1+ H Urine Blood Small H Urine Bilirubin 1+ H Urine WBC 6 H Amorphous Sediment Rare H Urine Bacteria Rare H Hyaline Casts 38 H Urine Mucus Occasional H Urine Yeast (Budding) Occasional H 09/08/23 09/08/23 09/08/23 01:45 02:29 03:05 RBC Hgb Hct MCV MCHC Plt Count Neutrophils # Lymphocytes # D-Dimer ABG pH ABG pCO2 ABG pO2 ABG HCO3 ABG Total CO2 ABG O2 Saturation Sodium Potassium Chloride Carbon Dioxide BUN Creatinine Glucose POC Glucose (mg/dL) >600 H* >600 H* >600 H* Hemoglobin A1c Calcium Phosphorus Magnesium Creatine Kinase Troponin I Total Protein Albumin Lipase Procalcitonin Cortisol Urine Protein Urine Glucose (UA) Urine Ketones Urine Blood Urine Bilirubin Urine WBC Amorphous Sediment Urine Bacteria Hyaline Casts Urine Mucus Urine Yeast (Budding) 09/08/23 09/08/23 09/08/23 03:35 04:09 04:29 RBC Hgb Hct MCV MCHC Plt Count Neutrophils # Lymphocytes # D-Dimer ABG pH 7.10 L* ABG pCO2 30 L ABG pO2 163 H ABG HCO3 9 L* ABG Total CO2 10 L ABG O2 Saturation 99.6 H Sodium 149 H Potassium 3.0 L Chloride 123 H Carbon Dioxide 7 L* BUN 120 H* Creatinine 3.55 H Glucose 664 H* POC Glucose (mg/dL) 597 H* Hemoglobin A1c Calcium Phosphorus Magnesium Creatine Kinase Troponin I Total Protein Albumin Lipase Procalcitonin Cortisol Urine Protein Urine Glucose (UA) Urine Ketones Urine Blood Urine Bilirubin Urine WBC Amorphous Sediment Urine Bacteria Hyaline Casts Urine Mucus Urine Yeast (Budding) 09/08/23 09/08/23 09/08/23 05:03 05:58 07:05 RBC Hgb Hct MCV MCHC Plt Count Neutrophils # Lymphocytes # D-Dimer ABG pH ABG pCO2 ABG pO2 ABG HCO3 ABG Total CO2 ABG O2 Saturation Sodium Potassium Chloride Carbon Dioxide BUN Creatinine Glucose POC Glucose (mg/dL) 595 H* 539 H* 565 H* Hemoglobin A1c Calcium Phosphorus Magnesium Creatine Kinase Troponin I Total Protein Albumin Lipase Procalcitonin Cortisol Urine Protein Urine Glucose (UA) Urine Ketones Urine Blood Urine Bilirubin Urine WBC Amorphous Sediment Urine Bacteria Hyaline Casts Urine Mucus Urine Yeast (Budding) 09/08/23 09/08/23 09/08/23 08:32 09:15 09:15 RBC Hgb Hct MCV MCHC Plt Count 127 L Neutrophils # Lymphocytes # 0.3 L D-Dimer ABG pH ABG pCO2 ABG pO2 ABG HCO3 ABG Total CO2 ABG O2 Saturation Sodium 151 H Potassium 3.2 L Chloride 121 H Carbon Dioxide 16 L BUN 118 H* Creatinine 2.99 H Glucose 559 H* POC Glucose (mg/dL) 542 H* Hemoglobin A1c Calcium Phosphorus Magnesium Creatine Kinase 1068 H* Troponin I Total Protein Albumin Lipase Procalcitonin Cortisol Urine Protein Urine Glucose (UA) Urine Ketones Urine Blood Urine Bilirubin Urine WBC Amorphous Sediment Urine Bacteria Hyaline Casts Urine Mucus Urine Yeast (Budding) 09/08/23 09/08/23 09/08/23 09:16 10:29 11:22 RBC Hgb Hct MCV MCHC Plt Count Neutrophils # Lymphocytes # D-Dimer ABG pH ABG pCO2 ABG pO2 ABG HCO3 ABG Total CO2 ABG O2 Saturation Sodium Potassium Chloride Carbon Dioxide BUN Creatinine Glucose POC Glucose (mg/dL) 474 H 442 H 405 H Hemoglobin A1c Calcium Phosphorus Magnesium Creatine Kinase Troponin I Total Protein Albumin Lipase Procalcitonin Cortisol Urine Protein Urine Glucose (UA) Urine Ketones Urine Blood Urine Bilirubin Urine WBC Amorphous Sediment Urine Bacteria Hyaline Casts Urine Mucus Urine Yeast (Budding) 09/08/23 09/08/23 09/08/23 13:09 14:00 14:04 RBC Hgb Hct MCV MCHC Plt Count Neutrophils # Lymphocytes # D-Dimer ABG pH ABG pCO2 ABG pO2 ABG HCO3 ABG Total CO2 ABG O2 Saturation Sodium 151 H Potassium 3.2 L Chloride 124 H Carbon Dioxide 18 L BUN 110 H* Creatinine 2.76 H Glucose 332 H POC Glucose (mg/dL) 329 H 308 H Hemoglobin A1c Calcium 7.3 L Phosphorus 2.3 L Magnesium 3.0 H Creatine Kinase Troponin I Total Protein Albumin Lipase Procalcitonin Cortisol Urine Protein Urine Glucose (UA) Urine Ketones Urine Blood Urine Bilirubin Urine WBC Amorphous Sediment Urine Bacteria Hyaline Casts Urine Mucus Urine Yeast (Budding) 09/08/23 09/08/23 09/08/23 15:09 16:03 17:09 RBC Hgb Hct MCV MCHC Plt Count Neutrophils # Lymphocytes # D-Dimer ABG pH ABG pCO2 ABG pO2 ABG HCO3 ABG Total CO2 ABG O2 Saturation Sodium Potassium Chloride Carbon Dioxide BUN Creatinine Glucose POC Glucose (mg/dL) 267 H 279 H 268 H Hemoglobin A1c Calcium Phosphorus Magnesium Creatine Kinase Troponin I Total Protein Albumin Lipase Procalcitonin Cortisol Urine Protein Urine Glucose (UA) Urine Ketones Urine Blood Urine Bilirubin Urine WBC Amorphous Sediment Urine Bacteria Hyaline Casts Urine Mucus Urine Yeast (Budding) 09/08/23 09/08/23 09/08/23 18:10 18:42 19:03 RBC Hgb Hct MCV MCHC Plt Count Neutrophils # Lymphocytes # D-Dimer ABG pH ABG pCO2 ABG pO2 ABG HCO3 ABG Total CO2 ABG O2 Saturation Sodium 151 H Potassium Chloride 126 H Carbon Dioxide 19 L BUN 105 H* Creatinine 2.46 H Glucose 268 H POC Glucose (mg/dL) 251 H 260 H Hemoglobin A1c Calcium 7.3 L Phosphorus 1.9 L Magnesium 2.9 H Creatine Kinase Troponin I Total Protein Albumin Lipase Procalcitonin Cortisol Urine Protein Urine Glucose (UA) Urine Ketones Urine Blood Urine Bilirubin Urine WBC Amorphous Sediment Urine Bacteria Hyaline Casts Urine Mucus Urine Yeast (Budding) 09/08/23 09/08/23 09/08/23 20:08 21:19 22:09 RBC Hgb Hct MCV MCHC Plt Count Neutrophils # Lymphocytes # D-Dimer ABG pH ABG pCO2 ABG pO2 ABG HCO3 ABG Total CO2 ABG O2 Saturation Sodium Potassium Chloride Carbon Dioxide BUN Creatinine Glucose POC Glucose (mg/dL) 200 H 166 H 191 H Hemoglobin A1c Calcium Phosphorus Magnesium Creatine Kinase Troponin I Total Protein Albumin Lipase Procalcitonin Cortisol Urine Protein Urine Glucose (UA) Urine Ketones Urine Blood Urine Bilirubin Urine WBC Amorphous Sediment Urine Bacteria Hyaline Casts Urine Mucus Urine Yeast (Budding) 09/08/23 09/09/23 09/09/23 23:03 00:07 01:02 RBC Hgb Hct MCV MCHC Plt Count Neutrophils # Lymphocytes # D-Dimer ABG pH ABG pCO2 ABG pO2 ABG HCO3 ABG Total CO2 ABG O2 Saturation Sodium Potassium Chloride Carbon Dioxide BUN Creatinine Glucose POC Glucose (mg/dL) 184 H 207 H 241 H Hemoglobin A1c Calcium Phosphorus Magnesium Creatine Kinase Troponin I Total Protein Albumin Lipase Procalcitonin Cortisol Urine Protein Urine Glucose (UA) Urine Ketones Urine Blood Urine Bilirubin Urine WBC Amorphous Sediment Urine Bacteria Hyaline Casts Urine Mucus Urine Yeast (Budding) 09/09/23 09/09/23 09/09/23 02:19 03:05 03:09 RBC Hgb Hct MCV MCHC Plt Count Neutrophils # Lymphocytes # D-Dimer ABG pH ABG pCO2 ABG pO2 ABG HCO3 ABG Total CO2 ABG O2 Saturation Sodium Potassium Chloride Carbon Dioxide BUN Creatinine Glucose POC Glucose (mg/dL) 176 H 171 H 171 H Hemoglobin A1c Calcium Phosphorus Magnesium Creatine Kinase Troponin I Total Protein Albumin Lipase Procalcitonin Cortisol Urine Protein Urine Glucose (UA) Urine Ketones Urine Blood Urine Bilirubin Urine WBC Amorphous Sediment Urine Bacteria Hyaline Casts Urine Mucus Urine Yeast (Budding) 09/09/23 09/09/23 09/09/23 04:10 04:15 04:15 RBC 4.02 L Hgb 12.0 L Hct 36.9 L MCV MCHC Plt Count 62 L D Neutrophils # Lymphocytes # 0.4 L D-Dimer ABG pH ABG pCO2 ABG pO2 ABG HCO3 ABG Total CO2 ABG O2 Saturation Sodium Potassium Chloride Carbon Dioxide BUN Creatinine Glucose POC Glucose (mg/dL) 180 H Hemoglobin A1c 11.9 H Calcium Phosphorus Magnesium Creatine Kinase Troponin I Total Protein Albumin Lipase Procalcitonin Cortisol Urine Protein Urine Glucose (UA) Urine Ketones Urine Blood Urine Bilirubin Urine WBC Amorphous Sediment Urine Bacteria Hyaline Casts Urine Mucus Urine Yeast (Budding) 09/09/23 09/09/23 09/09/23 04:15 05:00 05:02 RBC Hgb Hct MCV MCHC Plt Count Neutrophils # Lymphocytes # D-Dimer ABG pH ABG pCO2 29 L ABG pO2 ABG HCO3 18 L ABG Total CO2 ABG O2 Saturation 98.9 H Sodium 151 H Potassium 3.3 L Chloride 128 H Carbon Dioxide 17 L BUN 88 H Creatinine 1.90 H Glucose 179 H POC Glucose (mg/dL) 171 H Hemoglobin A1c Calcium 7.1 L Phosphorus 1.8 L Magnesium Creatine Kinase Troponin I Total Protein 4.3 L Albumin 2.3 L Lipase 1262 H Procalcitonin Cortisol Urine Protein Urine Glucose (UA) Urine Ketones Urine Blood Urine Bilirubin Urine WBC Amorphous Sediment Urine Bacteria Hyaline Casts Urine Mucus Urine Yeast (Budding) 09/09/23 09/09/23 09/09/23 05:52 06:09 06:53 RBC Hgb Hct MCV MCHC Plt Count Neutrophils # Lymphocytes # D-Dimer ABG pH ABG pCO2 ABG pO2 ABG HCO3 ABG Total CO2 ABG O2 Saturation Sodium Potassium Chloride Carbon Dioxide BUN Creatinine Glucose POC Glucose (mg/dL) 167 H 139 H 167 H Hemoglobin A1c Calcium Phosphorus Magnesium Creatine Kinase Troponin I Total Protein Albumin Lipase Procalcitonin Cortisol Urine Protein Urine Glucose (UA) Urine Ketones Urine Blood Urine Bilirubin Urine WBC Amorphous Sediment Urine Bacteria Hyaline Casts Urine Mucus Urine Yeast (Budding) 09/09/23 09/09/23 09/09/23 08:03 09:13 10:45 RBC Hgb Hct MCV MCHC Plt Count Neutrophils # Lymphocytes # D-Dimer ABG pH ABG pCO2 ABG pO2 ABG HCO3 ABG Total CO2 ABG O2 Saturation Sodium Potassium Chloride Carbon Dioxide BUN Creatinine Glucose POC Glucose (mg/dL) 202 H 222 H 217 H Hemoglobin A1c Calcium Phosphorus Magnesium Creatine Kinase Troponin I Total Protein Albumin Lipase Procalcitonin Cortisol Urine Protein Urine Glucose (UA) Urine Ketones Urine Blood Urine Bilirubin Urine WBC Amorphous Sediment Urine Bacteria Hyaline Casts Urine Mucus Urine Yeast (Budding) 09/09/23 09/09/23 09/09/23 11:45 12:24 14:13 RBC Hgb Hct MCV MCHC Plt Count Neutrophils # Lymphocytes # D-Dimer ABG pH ABG pCO2 ABG pO2 ABG HCO3 ABG Total CO2 ABG O2 Saturation Sodium Potassium Chloride Carbon Dioxide BUN Creatinine Glucose POC Glucose (mg/dL) 192 H 182 H Hemoglobin A1c Calcium Phosphorus Magnesium Creatine Kinase 995 H Troponin I Total Protein Albumin Lipase Procalcitonin Cortisol Urine Protein Urine Glucose (UA) Urine Ketones Urine Blood Urine Bilirubin Urine WBC Amorphous Sediment Urine Bacteria Hyaline Casts Urine Mucus Urine Yeast (Budding) Assessment and Plan Assessment: This is a 67-year-old gentleman with history of seizure disorder, diabetes mellitus, amputation of the toes due to his uncontrolled diabetes who was transferred from [place] to our facility on 09/07/2023 for his escalation of care of his acute DKA. Presented to our facility his serum glucose was as high as 900s opiates in the 200s and he continues to have altered mental status even though he is not been on any sedation in our facility. Patient has hypophosphatemia hypermagnesemia, hypernatremia Altered Mental status is due to metabolic encephalopathy due multifactorial (DKA, MARIANO, with electrolyte disturbance) Had two CT head which are negative for acute process. 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 Preliminary routine EEG is negative for any seizure or discharges. Ordered Vitamin B12 Patient is on aspirin 81 mg and Lipitor 40 mg nightly. Will defer the rest of the medical management to primary and other specialists The plan is discussed with ICU nurse. Thank you for the consultation. Time with Patient: Greater than 30
--- NOTE | 2023-09-09 15:49 | P.PN ---
Subjective Progress Note Date: 09/09/23 HISTORY OF PRESENTING ILLNESS 67-year-old male with past medical history of type 2 diabetes, prior to ampu tations, dyslipidemia, CAD s/p PCI, seizure disorder. Patient is not able to provide any history as he is intubated and is on ventilator support. Patient was transferred from [facility] yesterday. Apparently patient was found unresponsive by patient's partner and last well-known time was 24 hours before. Initial presentation was consistent with DKA and rhabdomyolysis. On admission his labs showed WBC 8.8, hemoglobin 14.5, BUN 134, creatinine 4.29, glucose 91, lactate 1.1. CPK 882, troponin 0.08. BNP 2720. ECG showed normal sinus rhythm with nonspecific interventricular conduction delay. Repeat labs showed CPK increased to 1068. TSH 1.3. 09/09/2023 Patient maintained on ventilator support. He is off pressors. His echocardiogram showed an EF of 40 to 45%, Hemoglobin 12, platelet count 62. On 09/08/2023 patient was noticed to go into atrial fibrillation with RVR. For this he was started on IV amiodarone drip. Currently patient is in sinus rhythm. Good urine output, kidney function is improving, creatinine 1.9 today. PHYSICAL EXAMINATION Vital signs reviewed. Head: Normocephalic. Eyes: Sclerae nonicteric. Neck: Brisk carotid upstroke, no jugular venous distention. Lungs: Clear to auscultation. Heart: Regular rate and rhythm, S1-S2, no S3, no murmur or rub. Abdomen: Soft nontender, positive bowel sounds. Extremities: No edema, intact distal pulses. Neuro: Alert, oritented, no focal deficits. Detailed neuro exam was not performed. 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 Less likely ACS Thrombocytopenia PAD with prior history of bilateral great toe amputation CAD s/p PCI Nonspecific IVCD on ECG Prior history of seizure disorder Obesity PLAN Continue supportive care for DKA, rhabdomyolysis and respiratory failure management as per ICU team Recommend aspirin 81 mg, Lipitor 40 mg Cannot do Anticoagulation at present due to severe thrombocytopenia, will continue to monitor Stop Amiodarone drip and Start PO amiodarone 400 mg BID until 09/15/2023, thereafter reduce dose Patient's mild troponin elevation is most likely due to combination of poor renal clearance, DKA and abnormalities. Prognosis overall guarded Objective - Vital Signs Vital signs: Vital Signs Temp 99.6 F 09/09/23 12:00 Pulse 96 09/09/23 15:36 Resp 13 09/09/23 14:15 BP 80/55 09/08/23 01:58 Pulse Ox 96 09/09/23 14:15 FiO2 35 09/09/23 15:15 Intake & Output 09/08/23 09/09/23 09/09/23 18:59 06:59 18:59 Intake Total 2664.807 2324.680 1257.874 Output Total 595 585 835 Balance 628.710 935.680 422.874 Weight 89.8 kg 92.6 kg 92.6 kg Intake: IV 833 1169 1098 D5-0.45% NaCl with KCl 300 200 20Meq/l 1,000 ml @ 150 mls/hr IV .Q6H40M [facility] Rx# :[id number] Dextrose 5% in Water 1, 500 000 ml @ 125 mls/hr IV . Q9H12M [facility] with Sodium Bicarb (1 Meq/ml) 150 ml Rx#:[id number] Pressure Bag 33 69 48 Sodium Chloride 0.45% 1, 900 800 000 ml @ 100 mls/hr IV . Q10H [facility] Rx#:[id number] Sodium Phosphate 30 mmol 250 In Dextrose 5% in Water 250 ml @ 65 mls/hr IVPB ONCE ONE Rx#:[id number] Intake, IV Titration 390.710 351.680 104.874 Amount Amiodarone 450 mg In 250 Dextrose 5% in Water 250 ml @ 0.5 MG/MIN 16.667 mls/hr IV .Q15H [facility] Rx#: [id number] Cefepime 2 gm In Sodium 100 Chloride 0.9% 100 ml @ 25 mls/hr IVPB Q12HR [facility] Rx #:[id number] Insulin Regular 100 unit 163.141 23.45 In Sodium Chloride 0.9% 100 ml @ 0.1 UNITS/KG/HR 9.07 mls/hr IV .Q11H9M REPLACED BY [facility] Rx#:[id number] Insulin Regular 100 unit 23.310 4.874 In Sodium Chloride 0.9% 100 ml @ Titrate IV .Q0M REPLACED BY [facility] Rx#:[id number] Norepinephrine 32 mg In 88.018 5.577 Sodium Chloride 0.9% 218 ml @ 0.03 MCG/KG/MIN 1.34 mls/hr IV .Q24H REPLACED BY [facility] Rx#: [id number] Potassium Chloride 10 meq 100 In Water For Injection 1 100ml.bag @ 100 mls/hr IVPB ONCE ONE Rx#: [id number] Vasopressin 20 unit In 39.551 49.343 Sodium Chloride 0.9% 50 ml @ 0.03 UNITS/MIN 4.59 mls/hr IV .Q11H7M REPLACED BY [facility] Rx# :[id number] Other 55 Output: Urine 595 585 835 Other: Voiding Method Indwelling Catheter Indwelling Catheter Indwelling Catheter ABP, PAP, CO, CI - Last Documented Arterial Blood Pressure 139/57 - Labs CBC & Chem 7: 09/09/23 04:15 09/09/23 04:15 Labs: Abnormal Lab Results - Last 24 Hours (Table) 09/08/23 09/08/23 09/08/23 Range/Units 16:03 17:09 18:10 RBC (4.30-5.90) m/uL Hgb (13.0-17.5) gm/dL Hct (39.0-53.0) % Plt Count (150-450) k/uL Lymphocytes # (1.0-4.8) k/uL ABG pCO2 (35-45) mmHg ABG HCO3 (21-25) mmol/L ABG O2 Saturation (94-97) % Sodium (137-145) mmol/L Potassium (3.5-5.1) mmol/L Chloride (98-107) mmol/L Carbon Dioxide (22-30) mmol/L BUN (9-20) mg/dL Creatinine (0.66-1.25) mg/dL Glucose (74-99) mg/dL POC Glucose (mg/dL) 279 H 268 H 251 H (70-110) mg/dL Hemoglobin A1c (<=6.0) % Calcium (8.4-10.2) mg/dL Phosphorus (2.5-4.5) mg/dL Magnesium (1.6-2.3) mg/dL Creatine Kinase (55-170) U/L Total Protein (6.3-8.2) g/dL Albumin (3.5-5.0) g/dL Lipase (23-300) U/L 09/08/23 09/08/23 09/08/23 Range/Units 18:42 19:03 20:08 RBC (4.30-5.90) m/uL Hgb (13.0-17.5) gm/dL Hct (39.0-53.0) % Plt Count (150-450) k/uL Lymphocytes # (1.0-4.8) k/uL ABG pCO2 (35-45) mmHg ABG HCO3 (21-25) mmol/L ABG O2 Saturation (94-97) % Sodium 151 H (137-145) mmol/L Potassium (3.5-5.1) mmol/L Chloride 126 H (98-107) mmol/L Carbon Dioxide 19 L (22-30) mmol/L BUN 105 H* (9-20) mg/dL Creatinine 2.46 H (0.66-1.25) mg/dL Glucose 268 H (74-99) mg/dL POC Glucose (mg/dL) 260 H 200 H (70-110) mg/dL Hemoglobin A1c (<=6.0) % Calcium 7.3 L (8.4-10.2) mg/dL Phosphorus 1.9 L (2.5-4.5) mg/dL Magnesium 2.9 H (1.6-2.3) mg/dL Creatine Kinase (55-170) U/L Total Protein (6.3-8.2) g/dL Albumin (3.5-5.0) g/dL Lipase (23-300) U/L 09/08/23 09/08/23 09/08/23 Range/Units 21:19 22:09 23:03 RBC (4.30-5.90) m/uL Hgb (13.0-17.5) gm/dL Hct (39.0-53.0) % Plt Count (150-450) k/uL Lymphocytes # (1.0-4.8) k/uL ABG pCO2 (35-45) mmHg ABG HCO3 (21-25) mmol/L ABG O2 Saturation (94-97) % Sodium (137-145) mmol/L Potassium (3.5-5.1) mmol/L Chloride (98-107) mmol/L Carbon Dioxide (22-30) mmol/L BUN (9-20) mg/dL Creatinine (0.66-1.25) mg/dL Glucose (74-99) mg/dL POC Glucose (mg/dL) 166 H 191 H 184 H (70-110) mg/dL Hemoglobin A1c (<=6.0) % Calcium (8.4-10.2) mg/dL Phosphorus (2.5-4.5) mg/dL Magnesium (1.6-2.3) mg/dL Creatine Kinase (55-170) U/L Total Protein (6.3-8.2) g/dL Albumin (3.5-5.0) g/dL Lipase (23-300) U/L 09/09/23 09/09/23 09/09/23 Range/Units 00:07 01:02 02:19 RBC (4.30-5.90) m/uL Hgb (13.0-17.5) gm/dL Hct (39.0-53.0) % Plt Count (150-450) k/uL Lymphocytes # (1.0-4.8) k/uL ABG pCO2 (35-45) mmHg ABG HCO3 (21-25) mmol/L ABG O2 Saturation (94-97) % Sodium (137-145) mmol/L Potassium (3.5-5.1) mmol/L Chloride (98-107) mmol/L Carbon Dioxide (22-30) mmol/L BUN (9-20) mg/dL Creatinine (0.66-1.25) mg/dL Glucose (74-99) mg/dL POC Glucose (mg/dL) 207 H 241 H 176 H (70-110) mg/dL Hemoglobin A1c (<=6.0) % Calcium (8.4-10.2) mg/dL Phosphorus (2.5-4.5) mg/dL Magnesium (1.6-2.3) mg/dL Creatine Kinase (55-170) U/L Total Protein (6.3-8.2) g/dL Albumin (3.5-5.0) g/dL Lipase (23-300) U/L 09/09/23 09/09/23 09/09/23 Range/Units 03:05 03:09 04:10 RBC (4.30-5.90) m/uL Hgb (13.0-17.5) gm/dL Hct (39.0-53.0) % Plt Count (150-450) k/uL Lymphocytes # (1.0-4.8) k/uL ABG pCO2 (35-45) mmHg ABG HCO3 (21-25) mmol/L ABG O2 Saturation (94-97) % Sodium (137-145) mmol/L Potassium (3.5-5.1) mmol/L Chloride (98-107) mmol/L Carbon Dioxide (22-30) mmol/L BUN (9-20) mg/dL Creatinine (0.66-1.25) mg/dL Glucose (74-99) mg/dL POC Glucose (mg/dL) 171 H 171 H 180 H (70-110) mg/dL Hemoglobin A1c (<=6.0) % Calcium (8.4-10.2) mg/dL Phosphorus (2.5-4.5) mg/dL Magnesium (1.6-2.3) mg/dL Creatine Kinase (55-170) U/L Total Protein (6.3-8.2) g/dL Albumin (3.5-5.0) g/dL Lipase (23-300) U/L 09/09/23 09/09/23 09/09/23 Range/Units 04:15 04:15 04:15 RBC 4.02 L (4.30-5.90) m/uL Hgb 12.0 L (13.0-17.5) gm/dL Hct 36.9 L (39.0-53.0) % Plt Count 62 L D (150-450) k/uL Lymphocytes # 0.4 L (1.0-4.8) k/uL ABG pCO2 (35-45) mmHg ABG HCO3 (21-25) mmol/L ABG O2 Saturation (94-97) % Sodium 151 H (137-145) mmol/L Potassium 3.3 L (3.5-5.1) mmol/L Chloride 128 H (98-107) mmol/L Carbon Dioxide 17 L (22-30) mmol/L BUN 88 H (9-20) mg/dL Creatinine 1.90 H (0.66-1.25) mg/dL Glucose 179 H (74-99) mg/dL POC Glucose (mg/dL) (70-110) mg/dL Hemoglobin A1c 11.9 H (<=6.0) % Calcium 7.1 L (8.4-10.2) mg/dL Phosphorus 1.8 L (2.5-4.5) mg/dL Magnesium (1.6-2.3) mg/dL Creatine Kinase (55-170) U/L Total Protein 4.3 L (6.3-8.2) g/dL Albumin 2.3 L (3.5-5.0) g/dL Lipase 1262 H (23-300) U/L 09/09/23 09/09/23 09/09/23 Range/Units 05:00 05:02 05:52 RBC (4.30-5.90) m/uL Hgb (13.0-17.5) gm/dL Hct (39.0-53.0) % Plt Count (150-450) k/uL Lymphocytes # (1.0-4.8) k/uL ABG pCO2 29 L (35-45) mmHg ABG HCO3 18 L (21-25) mmol/L ABG O2 Saturation 98.9 H (94-97) % Sodium (137-145) mmol/L Potassium (3.5-5.1) mmol/L Chloride (98-107) mmol/L Carbon Dioxide (22-30) mmol/L BUN (9-20) mg/dL Creatinine (0.66-1.25) mg/dL Glucose (74-99) mg/dL POC Glucose (mg/dL) 171 H 167 H (70-110) mg/dL Hemoglobin A1c (<=6.0) % Calcium (8.4-10.2) mg/dL Phosphorus (2.5-4.5) mg/dL Magnesium (1.6-2.3) mg/dL Creatine Kinase (55-170) U/L Total Protein (6.3-8.2) g/dL Albumin (3.5-5.0) g/dL Lipase (23-300) U/L 09/09/23 09/09/23 09/09/23 Range/Units 06:09 06:53 08:03 RBC (4.30-5.90) m/uL Hgb (13.0-17.5) gm/dL Hct (39.0-53.0) % Plt Count (150-450) k/uL Lymphocytes # (1.0-4.8) k/uL ABG pCO2 (35-45) mmHg ABG HCO3 (21-25) mmol/L ABG O2 Saturation (94-97) % Sodium (137-145) mmol/L Potassium (3.5-5.1) mmol/L Chloride (98-107) mmol/L Carbon Dioxide (22-30) mmol/L BUN (9-20) mg/dL Creatinine (0.66-1.25) mg/dL Glucose (74-99) mg/dL POC Glucose (mg/dL) 139 H 167 H 202 H (70-110) mg/dL Hemoglobin A1c (<=6.0) % Calcium (8.4-10.2) mg/dL Phosphorus (2.5-4.5) mg/dL Magnesium (1.6-2.3) mg/dL Creatine Kinase (55-170) U/L Total Protein (6.3-8.2) g/dL Albumin (3.5-5.0) g/dL Lipase (23-300) U/L 09/09/23 09/09/23 09/09/23 Range/Units 09:13 10:45 11:45 RBC (4.30-5.90) m/uL Hgb (13.0-17.5) gm/dL Hct (39.0-53.0) % Plt Count (150-450) k/uL Lymphocytes # (1.0-4.8) k/uL ABG pCO2 (35-45) mmHg ABG HCO3 (21-25) mmol/L ABG O2 Saturation (94-97) % Sodium (137-145) mmol/L Potassium (3.5-5.1) mmol/L Chloride (98-107) mmol/L Carbon Dioxide (22-30) mmol/L BUN (9-20) mg/dL Creatinine (0.66-1.25) mg/dL Glucose (74-99) mg/dL POC Glucose (mg/dL) 222 H 217 H (70-110) mg/dL Hemoglobin A1c (<=6.0) % Calcium (8.4-10.2) mg/dL Phosphorus (2.5-4.5) mg/dL Magnesium (1.6-2.3) mg/dL Creatine Kinase 995 H (55-170) U/L Total Protein (6.3-8.2) g/dL Albumin (3.5-5.0) g/dL Lipase (23-300) U/L 09/09/23 09/09/23 Range/Units 12:24 14:13 RBC (4.30-5.90) m/uL Hgb (13.0-17.5) gm/dL Hct (39.0-53.0) % Plt Count (150-450) k/uL Lymphocytes # (1.0-4.8) k/uL ABG pCO2 (35-45) mmHg ABG HCO3 (21-25) mmol/L ABG O2 Saturation (94-97) % Sodium (137-145) mmol/L Potassium (3.5-5.1) mmol/L Chloride (98-107) mmol/L Carbon Dioxide (22-30) mmol/L BUN (9-20) mg/dL Creatinine (0.66-1.25) mg/dL Glucose (74-99) mg/dL POC Glucose (mg/dL) 192 H 182 H (70-110) mg/dL Hemoglobin A1c (<=6.0) % Calcium (8.4-10.2) mg/dL Phosphorus (2.5-4.5) mg/dL Magnesium (1.6-2.3) mg/dL Creatine Kinase (55-170) U/L Total Protein (6.3-8.2) g/dL Albumin (3.5-5.0) g/dL Lipase (23-300) U/L Microbiology - Last 24 Hours (Table) 09/07/23 23:15 Blood Culture - Preliminary Blood 09/08/23 02:40 Gram Stain - Preliminary Sputum Sputum Culture - Preliminary Escherichia coli Staphylococcus aureus Strep agalactiae - (group b)
--- NOTE | 2023-09-09 16:22 | P.PN ---
Subjective Progress Note Date: 09/09/23 H&P Date: 09/08/23 Chief Complaint: DKA, hypotension, shock This is a 67-year-old gentleman with past medical history significant for diabetes mellitus, bilateral great toe amputations, CAD, [place], seizure disorder,intubated in the field, transferred from [place] [facility], admitted with significant DKA, hypotension, shock and multiple other medical issues. C urrently in the ICU, remains vent dependent on 35% FiO2 +5 of PEEP. Maintained on Levophed, bicarb, vasopressin, amiodarone and insulin drips as well as D5.45 NS IV fluids. Requiring Flores hugger. Patient has not seen PCP since June 2022, had proceeded to live at [facility] in [place]. ICU staff reports significant other reported that patient became unhappy living at the [facility], came to live with her, patient was sick for approximately 4 days and she discovered him unresponsive on her couch. Unresponsive with the exception of winces at noxious stimuli, no spontaneous eye-opening. Brain CT reported no acute intracranial hemorrhage or midline shift, mild diffuse age- related cerebral atrophy and moderate probable chronic small vessel ischemic change redemonstrated. ABGs on arrival reported pH 7.04, pCO2 25, pO2 204, bicarb 7, total CO2 8, O2 sat 99.7, base excess -22.6 on 35% FiO2. chest x-ray reported lungs clear, no infiltrates, cardiac silhouette size within normal limits. Outside toxicology reported as negative;serum alcohol less than 10. received 3 L crystalloids, 1 L saline bolus, 2 g bicarb in the ER with pressors initiated. Procalcitonin 0.29, WBC count 8.0, hemoglobin 14.4, platelets 127,Sodium 143,151, potassium 5.2, 3.2, chloride 115,124, bicarb less than 5, 18, anion gap unmeasurable, 9, BUN 134, 110, creatinine 4.29, 2.76, glucose 910, 332. Lactic 1.1. LFTs WNL. Ammonia less than 9. CPK 882, 1068. Troponin 0.084. NT BNP 2720. EKG reported normal sinus rhythm. UA positive for hyaline casts, ketones ,glucose, and protein. Negative for nitrates. No seizure activity reported. 09/09/2023 paroxysmal atrial fibrillation with RVR, maintained on amiodarone drip ,telemetry currently sinus rhythm. vasopressors weaned off late last night. Remains ventilator dependent with FiO2 35%/+5 of PEEP. Chest x-ray reported suspected underlying COPD, mild patchy medial basilar densities, likely atelectasis .echo reporting technically difficult study , moderately impaired LV function EF of 40-45%. Hemoglobin A1c 11.9. Continues on insulin drip. Anion gap 6, bicarb 17, blood sugars better controlled. Sodium 150, potassium 3.3 renal function improving, BUN 88, creatinine 1.9. Preliminary sputum culture growing gram-negative bacilli, presumptive Staph aureus, blood cultures in progress. Maxipime initiated. Brain CT repeated last night reporting no significant change from most recent prior CT. remains off of sedation, grimacin g to noxious stimuli. Objective - Vital Signs Vital signs: Vital Signs Temp 99.6 F 09/09/23 08:00 Pulse 100 09/09/23 11:15 Resp 21 09/09/23 11:15 BP 80/55 09/08/23 01:58 Pulse Ox 96 09/09/23 11:15 FiO2 35 09/09/23 10:52 Intake & Output 09/08/23 09/09/23 09/09/23 18:59 06:59 18:59 Intake Total 5526.717 5233.680 534.874 Output Total 595 585 415 Balance 628.710 935.680 119.874 Weight 89.8 kg 92.6 kg 92.6 kg Intake: IV 833 1169 530 D5-0.45% NaCl with KCl 300 200 20Meq/l 1,000 ml @ 150 mls/hr IV .Q6H40M SANTA Rx# :[id number] Dextrose 5% in Water 1, 500 000 ml @ 125 mls/hr IV . Q9H12M SANTA with Sodium Bicarb (1 Meq/ml) 150 ml Rx#:[id number] Pressure Bag 33 69 30 Sodium Chloride 0.45% 1, 900 500 000 ml @ 100 mls/hr IV . Q10H SANTA Rx#:[id number] Intake, IV Titration 390.710 351.680 4.874 Amount Amiodarone 450 mg In 250 Dextrose 5% in Water 250 ml @ 0.5 MG/MIN 16.667 mls/hr IV .Q15H SANTA Rx#: [id number] Insulin Regular 100 unit 163.141 23.45 In Sodium Chloride 0.9% 100 ml @ 0.1 UNITS/KG/HR 9.07 mls/hr IV .Q11H9M SANTA Rx#:[id number] Insulin Regular 100 unit 23.310 4.874 In Sodium Chloride 0.9% 100 ml @ Titrate IV .Q0M SANTA Rx#:[id number] Norepinephrine 32 mg In 88.018 5.577 Sodium Chloride 0.9% 218 ml @ 0.03 MCG/KG/MIN 1.34 mls/hr IV .Q24H SANTA Rx#: [id number] Potassium Chloride 10 meq 100 In Water For Injection 1 100ml.bag @ 100 mls/hr IVPB ONCE ONE Rx#: [id number] Vasopressin 20 unit In 39.551 49.343 Sodium Chloride 0.9% 50 ml @ 0.03 UNITS/MIN 4.59 mls/hr IV .Q11H7M SANTA Rx# :[id number] Output: Urine 595 585 415 Other: Voiding Method Indwelling Catheter Indwelling Catheter Indwelling Catheter ABP, PAP, CO, CI - Last Documented Arterial Blood Pressure 122/69 - Exam PHYSICAL EXAM: VITAL SIGNS: [As above] GENERAL: Intubated, unresponsive, no sedation, OG present HEENT: Normocephalic, mucous membranes dry NECK: Supple, no JVD. CARDIOVASCULAR: S1, S2 regular. Systolic murmur RESPIRATION: Equal air entry, clear to auscultation. ABDOMEN: Soft, nondistended ,nontender . No guarding. no masses palpable. LEGS: No edema. no swelling. Prior bilateral great toe amputations. NERVOUS SYSTEM: Limited exam, unable to assess at this time. Facial grimacing to noxious stimuli. Skin: no rash noted Microbiology 09/08/23 02:40 Sputum Gram Stain - Preliminary 09/08/23 02:40 Sputum Sputum Culture - Preliminary Gram Neg Bacilli Presumptive Staph aureus - Labs CBC & Chem 7: 09/09/23 04:15 09/09/23 04:15 Labs: Abnormal Lab Results - Last 24 Hours (Table) 09/08/23 09/08/23 09/08/23 Range/Units 13:09 14:00 14:04 RBC (4.30-5.90) m/uL Hgb (13.0-17.5) gm/dL Hct (39.0-53.0) % Plt Count (150-450) k/uL Lymphocytes # (1.0-4.8) k/uL ABG pCO2 (35-45) mmHg ABG HCO3 (21-25) mmol/L ABG O2 Saturation (94-97) % Sodium 151 H (137-145) mmol/L Potassium 3.2 L (3.5-5.1) mmol/L Chloride 124 H (98-107) mmol/L Carbon Dioxide 18 L (22-30) mmol/L BUN 110 H* (9-20) mg/dL Creatinine 2.76 H (0.66-1.25) mg/dL Glucose 332 H (74-99) mg/dL POC Glucose (mg/dL) 329 H 308 H (70-110) mg/dL Hemoglobin A1c (<=6.0) % Calcium 7.3 L (8.4-10.2) mg/dL Phosphorus 2.3 L (2.5-4.5) mg/dL Magnesium 3.0 H (1.6-2.3) mg/dL Total Protein (6.3-8.2) g/dL Albumin (3.5-5.0) g/dL Lipase (23-300) U/L 09/08/23 09/08/23 09/08/23 Range/Units 15:09 16:03 17:09 RBC (4.30-5.90) m/uL Hgb (13.0-17.5) gm/dL Hct (39.0-53.0) % Plt Count (150-450) k/uL Lymphocytes # (1.0-4.8) k/uL ABG pCO2 (35-45) mmHg ABG HCO3 (21-25) mmol/L ABG O2 Saturation (94-97) % Sodium (137-145) mmol/L Potassium (3.5-5.1) mmol/L Chloride (98-107) mmol/L Carbon Dioxide (22-30) mmol/L BUN (9-20) mg/dL Creatinine (0.66-1.25) mg/dL Glucose (74-99) mg/dL POC Glucose (mg/dL) 267 H 279 H 268 H (70-110) mg/dL Hemoglobin A1c (<=6.0) % Calcium (8.4-10.2) mg/dL Phosphorus (2.5-4.5) mg/dL Magnesium (1.6-2.3) mg/dL Total Protein (6.3-8.2) g/dL Albumin (3.5-5.0) g/dL Lipase (23-300) U/L 09/08/23 09/08/23 09/08/23 Range/Units 18:10 18:42 19:03 RBC (4.30-5.90) m/uL Hgb (13.0-17.5) gm/dL Hct (39.0-53.0) % Plt Count (150-450) k/uL Lymphocytes # (1.0-4.8) k/uL ABG pCO2 (35-45) mmHg ABG HCO3 (21-25) mmol/L ABG O2 Saturation (94-97) % Sodium 151 H (137-145) mmol/L Potassium (3.5-5.1) mmol/L Chloride 126 H (98-107) mmol/L Carbon Dioxide 19 L (22-30) mmol/L BUN 105 H* (9-20) mg/dL Creatinine 2.46 H (0.66-1.25) mg/dL Glucose 268 H (74-99) mg/dL POC Glucose (mg/dL) 251 H 260 H (70-110) mg/dL Hemoglobin A1c (<=6.0) % Calcium 7.3 L (8.4-10.2) mg/dL Phosphorus 1.9 L (2.5-4.5) mg/dL Magnesium 2.9 H (1.6-2.3) mg/dL Total Protein (6.3-8.2) g/dL Albumin (3.5-5.0) g/dL Lipase (23-300) U/L 09/08/23 09/08/23 09/08/23 Range/Units 20:08 21:19 22:09 RBC (4.30-5.90) m/uL Hgb (13.0-17.5) gm/dL Hct (39.0-53.0) % Plt Count (150-450) k/uL Lymphocytes # (1.0-4.8) k/uL ABG pCO2 (35-45) mmHg ABG HCO3 (21-25) mmol/L ABG O2 Saturation (94-97) % Sodium (137-145) mmol/L Potassium (3.5-5.1) mmol/L Chloride (98-107) mmol/L Carbon Dioxide (22-30) mmol/L BUN (9-20) mg/dL Creatinine (0.66-1.25) mg/dL Glucose (74-99) mg/dL POC Glucose (mg/dL) 200 H 166 H 191 H (70-110) mg/dL Hemoglobin A1c (<=6.0) % Calcium (8.4-10.2) mg/dL Phosphorus (2.5-4.5) mg/dL Magnesium (1.6-2.3) mg/dL Total Protein (6.3-8.2) g/dL Albumin (3.5-5.0) g/dL Lipase (23-300) U/L 09/08/23 09/09/23 09/09/23 Range/Units 23:03 00:07 01:02 RBC (4.30-5.90) m/uL Hgb (13.0-17.5) gm/dL Hct (39.0-53.0) % Plt Count (150-450) k/uL Lymphocytes # (1.0-4.8) k/uL ABG pCO2 (35-45) mmHg ABG HCO3 (21-25) mmol/L ABG O2 Saturation (94-97) % Sodium (137-145) mmol/L Potassium (3.5-5.1) mmol/L Chloride (98-107) mmol/L Carbon Dioxide (22-30) mmol/L BUN (9-20) mg/dL Creatinine (0.66-1.25) mg/dL Glucose (74-99) mg/dL POC Glucose (mg/dL) 184 H 207 H 241 H (70-110) mg/dL Hemoglobin A1c (<=6.0) % Calcium (8.4-10.2) mg/dL Phosphorus (2.5-4.5) mg/dL Magnesium (1.6-2.3) mg/dL Total Protein (6.3-8.2) g/dL Albumin (3.5-5.0) g/dL Lipase (23-300) U/L 09/09/23 09/09/23 09/09/23 Range/Units 02:19 03:05 03:09 RBC (4.30-5.90) m/uL Hgb (13.0-17.5) gm/dL Hct (39.0-53.0) % Plt Count (150-450) k/uL Lymphocytes # (1.0-4.8) k/uL ABG pCO2 (35-45) mmHg ABG HCO3 (21-25) mmol/L ABG O2 Saturation (94-97) % Sodium (137-145) mmol/L Potassium (3.5-5.1) mmol/L Chloride (98-107) mmol/L Carbon Dioxide (22-30) mmol/L BUN (9-20) mg/dL Creatinine (0.66-1.25) mg/dL Glucose (74-99) mg/dL POC Glucose (mg/dL) 176 H 171 H 171 H (70-110) mg/dL Hemoglobin A1c (<=6.0) % Calcium (8.4-10.2) mg/dL Phosphorus (2.5-4.5) mg/dL Magnesium (1.6-2.3) mg/dL Total Protein (6.3-8.2) g/dL Albumin (3.5-5.0) g/dL Lipase (23-300) U/L 09/09/23 09/09/23 09/09/23 Range/Units 04:10 04:15 04:15 RBC 4.02 L (4.30-5.90) m/uL Hgb 12.0 L (13.0-17.5) gm/dL Hct 36.9 L (39.0-53.0) % Plt Count 62 L D (150-450) k/uL Lymphocytes # 0.4 L (1.0-4.8) k/uL ABG pCO2 (35-45) mmHg ABG HCO3 (21-25) mmol/L ABG O2 Saturation (94-97) % Sodium (137-145) mmol/L Potassium (3.5-5.1) mmol/L Chloride (98-107) mmol/L Carbon Dioxide (22-30) mmol/L BUN (9-20) mg/dL Creatinine (0.66-1.25) mg/dL Glucose (74-99) mg/dL POC Glucose (mg/dL) 180 H (70-110) mg/dL Hemoglobin A1c 11.9 H (<=6.0) % Calcium (8.4-10.2) mg/dL Phosphorus (2.5-4.5) mg/dL Magnesium (1.6-2.3) mg/dL Total Protein (6.3-8.2) g/dL Albumin (3.5-5.0) g/dL Lipase (23-300) U/L 09/09/23 09/09/23 09/09/23 Range/Units 04:15 05:00 05:02 RBC (4.30-5.90) m/uL Hgb (13.0-17.5) gm/dL Hct (39.0-53.0) % Plt Count (150-450) k/uL Lymphocytes # (1.0-4.8) k/uL ABG pCO2 29 L (35-45) mmHg ABG HCO3 18 L (21-25) mmol/L ABG O2 Saturation 98.9 H (94-97) % Sodium 151 H (137-145) mmol/L Potassium 3.3 L (3.5-5.1) mmol/L Chloride 128 H (98-107) mmol/L Carbon Dioxide 17 L (22-30) mmol/L BUN 88 H (9-20) mg/dL Creatinine 1.90 H (0.66-1.25) mg/dL Glucose 179 H (74-99) mg/dL POC Glucose (mg/dL) 171 H (70-110) mg/dL Hemoglobin A1c (<=6.0) % Calcium 7.1 L (8.4-10.2) mg/dL Phosphorus 1.8 L (2.5-4.5) mg/dL Magnesium (1.6-2.3) mg/dL Total Protein 4.3 L (6.3-8.2) g/dL Albumin 2.3 L (3.5-5.0) g/dL Lipase 1262 H (23-300) U/L 09/09/23 09/09/23 09/09/23 Range/Units 05:52 06:09 06:53 RBC (4.30-5.90) m/uL Hgb (13.0-17.5) gm/dL Hct (39.0-53.0) % Plt Count (150-450) k/uL Lymphocytes # (1.0-4.8) k/uL ABG pCO2 (35-45) mmHg ABG HCO3 (21-25) mmol/L ABG O2 Saturation (94-97) % Sodium (137-145) mmol/L Potassium (3.5-5.1) mmol/L Chloride (98-107) mmol/L Carbon Dioxide (22-30) mmol/L BUN (9-20) mg/dL Creatinine (0.66-1.25) mg/dL Glucose (74-99) mg/dL POC Glucose (mg/dL) 167 H 139 H 167 H (70-110) mg/dL Hemoglobin A1c (<=6.0) % Calcium (8.4-10.2) mg/dL Phosphorus (2.5-4.5) mg/dL Magnesium (1.6-2.3) mg/dL Total Protein (6.3-8.2) g/dL Albumin (3.5-5.0) g/dL Lipase (23-300) U/L 09/09/23 09/09/23 09/09/23 Range/Units 08:03 09:13 10:45 RBC (4.30-5.90) m/uL Hgb (13.0-17.5) gm/dL Hct (39.0-53.0) % Plt Count (150-450) k/uL Lymphocytes # (1.0-4.8) k/uL ABG pCO2 (35-45) mmHg ABG HCO3 (21-25) mmol/L ABG O2 Saturation (94-97) % Sodium (137-145) mmol/L Potassium (3.5-5.1) mmol/L Chloride (98-107) mmol/L Carbon Dioxide (22-30) mmol/L BUN (9-20) mg/dL Creatinine (0.66-1.25) mg/dL Glucose (74-99) mg/dL POC Glucose (mg/dL) 202 H 222 H 217 H (70-110) mg/dL Hemoglobin A1c (<=6.0) % Calcium (8.4-10.2) mg/dL Phosphorus (2.5-4.5) mg/dL Magnesium (1.6-2.3) mg/dL Total Protein (6.3-8.2) g/dL Albumin (3.5-5.0) g/dL Lipase (23-300) U/L Microbiology - Last 24 Hours (Table) 09/08/23 02:40 Gram Stain - Preliminary Sputum Sputum Culture - Preliminary Gram Neg Bacilli Presumptive Staph aureus Assessment and Plan Assessment: Acute DKA, anion gap closed ,recovered Severe anion gap metabolic acidosis secondary to the above, status post bicarb drip. Hypotensive ,hypovolemic shock, status post pressor dependent Acute hypoxic respiratory failure, mechanical ventilator dependent. Sputum culture reported gram-negative bacilli, presumptive staph aureus Paroxysmal atrial fibrillation Sepsis, secondary to all the above Acute metabolic encephalopathy secondary to all the above, possibly anoxic. Neurology following Acute rhabdomyolysis Acute renal failure, improving Elevated troponin, multifactorial secondary to all the above, less likely ACS as per cardiology. Severe dehydration Diabetes mellitus type 2, hemoglobin A1c 11.9 CAD, history of [place], stent History of seizure disorder, on Keppra Plan: Continue on current medication resume ,monitoring and symptomatic treatment. ICU management as per sumatra opener. Blood and sputum cultures in progress. Neurology consult in place, recommendations pending.prognosis guarded, given multiple complex medical issues. The impression and plan of care has been dictated as directed. : I performed a history and examination of this patient, discussed the same with the dictator. I agree with the dictator's note ,documented as a scribe. Any additional findings or plans will be noted.
[2023-09-09 17:51] LABS: Glucose,Whole Blood 236 mg/dL (70-110)
[2023-09-09] MEDS: INSULIN ASPART (NovoLOG) 100 UNIT/ML VIAL SQ SCH (18:04)
[2023-09-09] MEDS: ATORVASTATIN 40 MG TAB PO SCH (19:48)
[2023-09-09 20:04] LABS: Glucose,Whole Blood 245 mg/dL (70-110)
[2023-09-09] MEDS: INSULIN DETEMIR (LEVEMIR) 100 UNIT/ML SYR SQ SCH (20:05)
[2023-09-09 21:08] LABS: Phosphorus 2.7 mg/dL (2.5-4.5); Potassium 3.1 mmol/L (3.5-5.1)
[2023-09-09] MEDS: ACETAMINOPHEN IV (For NPO) 1,000 MG in EMPTY BAG 1 BAG IVPB PRN (22:23)
[2023-09-09 23:31] LABS: Glucose,Whole Blood 247 mg/dL (70-110)
--- NOTE | 2023-09-09 23:42 | EEG ---
ELECTROENCEPHALOGRAM REPORT CLINICAL HISTORY: This is a 67-year-old gentleman with history of seizures, who was transferred from outside hospital because of DKA, who continues to have confusion. The video EEG is obtained to evaluate for seizure epileptiform activity. RELEVANT MEDICATIONS: Keppra. EEG TYPE: This is a routine 21-channel EEG with video using the 10/20 electrode placement system. DESCRIPTION: The patient is intubated on a ventilator. The background consists of [id number] voltage of 1.5 to 2.5 hertz delta activity that is nonrhythmic and polymorphic. At rare times, the background consists of nonrhythmic theta activity. There is no physiological stage 2 sleep architecture. Interictal and ictal is none. ACTIVATION PROCEDURE: Photic stimulation did not evoke a posterior driving response. There is no abnormality during the photic stimulation. Hyperventilation is not performed. CLINICAL INTERPRETATION: This is an abnormal routine EEG. The background slowing is suggestive of severe encephalopathy likely due to toxic-metabolic derangement. Otherwise, there is no focal slowing, epileptiform discharge, or seizure on the EEG. Clinical correlation is recommended. RAMONAL / IJN: [id number] / ZINA
[2023-09-10 02:43] LABS: Basophils % (A) 0 %; Eosinophils % (A) 0 %; HGB 11.3 gm/dL (13.0-17.5); Lymphocytes # (A) 0.6 k/uL (1.0-4.8); Lymphocytes % (A) 13 %; MCH 30.1 pg (25.0-35.0); MCHC 32.3 g/dL (31.0-37.0); MCV 93.3 fL (80.0-100.0); Mean Platelet Volume 10.3; Monocytes # (A) 0.2 k/uL (0-1.0); Monocytes % (A) 4 %; Neutrophils # (A) 3.5 k/uL (1.3-7.7); Neutrophils % (A) 82 %; RBC 3.76 m/uL (4.30-5.90); RDW 14.8 % (11.5-15.5); WBC 4.3 k/uL (3.8-10.6)
[2023-09-10 02:44] LABS: Platelet Count 43 k/uL (150-450)
[2023-09-10 03:01] LABS: African American GFR (CKD) 57 (>60 ml/min/1.73 sqM); Anion Gap 8 mmol/L; Blood Urea Nitrogen 64 mg/dL (9-20); Carbon Dioxide 16 mmol/L (22-30); Chloride 128 mmol/L (98-107); Glucose 250 mg/dL (74-99); Non-African American GFR(CKD) 49 (>60 ml/min/1.73 sqM); Potassium 3.5 mmol/L (3.5-5.1); Sodium 152 mmol/L (137-145)
[2023-09-10 05:31] LABS: Glucose,Whole Blood 211 mg/dL (70-110)
[2023-09-10 05:37] LABS: Basophils % (A) 0 %; Eosinophils % (A) 0 %; HGB 11.4 gm/dL (13.0-17.5); Lymphocytes # (A) 0.6 k/uL (1.0-4.8); Lymphocytes % (A) 12 %; MCH 30.3 pg (25.0-35.0); MCHC 32.7 g/dL (31.0-37.0); MCV 92.8 fL (80.0-100.0); Mean Platelet Volume 11.5; Monocytes # (A) 0.2 k/uL (0-1.0); Monocytes % (A) 4 %; Neutrophils # (A) 3.9 k/uL (1.3-7.7); Neutrophils % (A) 82 %; RBC 3.77 m/uL (4.30-5.90); RDW 14.9 % (11.5-15.5); WBC 4.7 k/uL (3.8-10.6)
[2023-09-10] MEDS: POTASSIUM BICARBONATE/CIT AC 20 MEQ TABLET.EFF NG-TUBE SCH ×2 (05:43→16:30)
[2023-09-10 05:50] LABS: Platelet Count 49 k/uL (150-450)
[2023-09-10 06:20] LABS: ABG PH 7.45 (7.35-7.45); Allen Test Performed? Yes
[2023-09-10 06:21] LABS: ABG Base Excess -5.1 mmol/L; ABG HCO3 18 mmol/L (21-25); ABG PCO2 25 mmHg (35-45); ABG PO2 97 mmHg (83-108); ABG TCO2 18 mmol/L (19-24)
[2023-09-10 11:37] LABS: Glucose,Whole Blood 281 mg/dL (70-110)
--- NOTE | 2023-09-10 11:55 | XR ---
EXAMINATION TYPE: XR chest 1V portable DATE OF EXAM: 09/10/2023 Comparison: 09/09/2023 Clinical History: 67-year-old male Tube placement Findings: ET and NG tubes are satisfactory. Right IJ CVC tip at the cavoatrial junction. Heart upper limits of normal in size. No job consolidation or pleural effusion. Multiple overlying lines and tubes. Impression: No definite acute process.
--- NOTE | 2023-09-10 12:11 | P.PN ---
Subjective Progress Note Date: 09/10/23 Patient is a 67-year-old male with past medical history significant for diabetes mellitus, prior toe amputations, hyperlipidemia, coronary artery disease with previous stents, and seizure disorder. He is currently intubated to the mechanical ventilator, unresponsive without any sedation, unable to provide any information. Patient was transferred from [facility] late last night. Apparently, found unresponsive by his girlfriend, and last known well was 24 hours prior. Patient was intubated by EMS on arrival and triaged to [facility]. Initial presentation was consistent with DKA. Subsequently, the patient was transferred to [facility]. Patient is currently in trauma bay 1, he is intubated mechanical ventilator. Chest x-ray on arrival to our facility shows the endotracheal tube in satisfactory position approximately 4 cm above the mahesh. There is an orogastric tube that should be advanced. Right IJ central line catheter appears to terminate at the Cavo atrial junction. No focal infiltrates or evidence of pneumonia. Current ventilator settings are assist-control, respiratory rate 14, tidal volume 500, FiO2 35%, PEEP of 5. He is breathing slightly above set rate. Not on any sedation. Remains unresponsive even to deep painful stimuli. CT of the brain did not show any acute intracranial hemorrhage or mass effect. ABG is consistent with profound metabolic acidosis, with a PaO2 of 204, pCO2 of 25, pH of 7.04. Patient has been given a total of 2 A of bicarb. He is hypotensive and in a shock state, he has been fluid resuscitated with at least 2.5 L crystalloid fluid. No insulin infusion is currently ordered. He remains profoundly hypotensive, and has been started on norepinephrine which is currently infusing at 0.06 mcg/kg/min. CBC: WBC count 8.8, hemoglobin 14.5, hematocrit 50.3, platelets 136. CMP: Sodium 143, potassium 5.2, chloride 115, serum bicarb less than 5, anion gap unmeasurable, BUN 134, creatinine 4.29, glucose 910. Lactic 1.1. LFTs not elevated. Total bilirubin 0.7. Ammonia less than 9. CPK was 882. Troponin 0.084. NT BNP 2720. EKG shows normal sinus rhythm and is nondiagnostic for acute ischemia. Urinalysis positive for glucose and ketones. Urine toxicology screen at outside facility was essentially negative. Serum alcohol less than 10. Patient will be admitted to the intensive care unit once bed available. Today's evaluation of 09/09/2023, the patient is being seen for a follow-up. The patient remains off sedatives. He is grimacing to painful stimulation. He did have a CAT scan of the brain yesterday that showed no acute abnormalities. Suspect a component of hypoxic encephalopathy as the patient apparently was hypoxic when the patient was picked up by the EMS. At this point in time, the patient is grimacing only to deep painful stimulation. Not following any commands yet. The patient has recovered from his anion gap metabolic acidosis related to DKA. The patient is currently on half-normal saline at rate of 100 cc an hour. Most recent blood work shows a gap of 6 with a serum bicarb of 17. Sodium levels at 151. Potassium level at 3.3 which is being replaced. Blood sugars 879. The patient remains on insulin drip and the patient will be transition to long-acting insulin. Remains on the mechanical ventilator assist- control mode at rate of 20, tidal volume of 500, FiO2 of 35% with a PEEP of 5. Blood gas showed a pH of 7.4 with a pCO2 of 29 and pO2 of 103. The patient was tachypneic volume second mechanical ventilation the patient was switched to pressure control. CVP was 2 and after receiving a total of 3 L of fluid and the CVP came up to 8 and the patient has been off pressors since 11:30 PM yesterday. Cardiac rhythm is sinus. The patient is completing albuterol and loading and the patient is currently on 0.5 mg/min. Echocardiogram was done and patient has an ejection fraction of 40 to 45%. The white cell count today is at 5 with a hemoglobin of 12 and a platelet count of 62. Chest x-ray findings are stable. Some atelectatic changes in lung base bilaterally. No antibiotic coverage at this point in time. Sputum is showing gram-negative bacillus and presumptive Staph aureus. 09/10/2023, I am seeing the patient for a follow-up. The patient remains encephalopathic. He grimaces to painful stimulation in all 4 extremities and is withdrawing to pain. Nevertheless, does not follow any commands. His mobility is less in his lower extremities compared to the upper extremities. No seizure activity has been noted. CAT scan of the brain was negative. EEG showed moderate to severe encephalopathy. Suspect hypoxic encephalopathy. Meanwhile, the patient remains intubated on mechanical ventilator. On today's evaluation, he is on no sedation. He is on pressure control mode of mechanical ventilation at rate of 20, pressure control of 15, inspiratory time 0.9 with an FiO2 of 35% and a PEEP of 5. Blood gases from today showed a pH of 7.45 with a pCO2 of 25 and a pO2 of 97. Chest x-ray findings are stable and there is no significant interval change and there is no definite acute process. Based on the positive sputum culture, the patient was started on IV cefepime. Sputum sample was positive for a combination of bacteria including E. coli, Staph aureus/MSSA and Streptococcus. He is afebrile. Hemodynamically stable and he is on no pressors. In fact, he has developed some hypochloremic hyponatremia. He remains on half-normal saline at rate of 100 cc an hour. BUN 64 with a creatinine of 1.46 and a sodium level at 152 and a chloride level is 128. Potassium is at 3.5. WBC count is at 4.7 with a hemoglobin of 1.4 and a platelet count of 49. The patient's blood sugar is at 281. The patient remains on Levemir insulin which is at 15 units and the patient is also on sliding scale coverage. The patient is sitting enteral feeding for nutritional support and the patient is on Glucerna at a rate of 31 cc an hour. Objective - Vital Signs Vital signs: Vital Signs Temp 100.2 F H 09/10/23 08:00 Pulse 85 09/10/23 10:00 Resp 20 09/10/23 10:00 BP 80/55 09/08/23 01:58 Pulse Ox 95 09/10/23 10:00 FiO2 35 09/10/23 09:08 Intake & Output 09/09/23 09/10/23 09/10/23 18:59 06:59 18:59 Intake Total 9618.200 3973 696 Output Total 1215 1195 805 Balance 496.874 217 -109 Weight 92.6 kg 93.8 kg Intake: IV 1522 1272 424 Pressure Bag 72 72 24 Sodium Chloride 0.45% 1, 1200 1200 400 000 ml @ 100 mls/hr IV . Q10H [facility] Rx#:[id number] Sodium Phosphate 30 mmol 250 In Dextrose 5% in Water 250 ml @ 65 mls/hr IVPB ONCE ONE Rx#:[id number] Intake, IV Titration 104.874 100 Amount Cefepime 2 gm In Sodium 100 100 Chloride 0.9% 100 ml @ 25 mls/hr IVPB Q12HR [facility] Rx #:[id number] Insulin Regular 100 unit 4.874 In Sodium Chloride 0.9% 100 ml @ Titrate IV .Q0M [facility] Rx#:[id number] Tube Feeding 110 92 Other 85 30 80 Output: Urine 1215 1195 805 Other: Voiding Method Indwelling Catheter Indwelling Catheter ABP, PAP, CO, CI - Last Documented Arterial Blood Pressure 119/52 - Exam GENERAL EXAM: Unresponsive, 67-year-old male, intubated to mechanical ventilator, . HEAD: Normocephalic and atraumatic EYES: Sluggish reaction of pupils, equal size. NOSE: Clear with pink turbinates. THROAT: No erythema or exudates. Dry mucous membranes. NECK: No masses, no JVD. CHEST: No chest wall deformity. LUNGS: Equal air entry with no crackles, wheeze, rhonchi or dullness. Intubated mechanical ventilator. Peak pressures 17. No significant endotracheal secretions. CVS: S1 and S2 normal with no soft systolic murmur, regular rhythm. No extra heart sounds ABDOMEN: Abdomen flat, active bowel sounds, no hepatosplenomegaly, no guarding or rigidity. Orogastric tube with small amount of brown output. SPINE: No scoliosis or deformity SKIN: No rashes CENTRAL NERVOUS SYSTEM: encephalopathic with diminished level of consciousness.. No discernible seizure-like activity. Patellar DTRs 1+ bilaterally. Babinski neutral. The patient is grimacing to painful stimulation. EXTREMITIES: There is no peripheral edema, clubbing, or cyanosis. Peripheral pulses are intact. Remote appearing bilateral great toe amputations. - Labs CBC & Chem 7: 09/10/23 05:00 09/10/23 02:15 Labs: Abnormal Lab Results - Last 24 Hours (Table) 09/09/23 09/09/23 09/09/23 Range/Units 10:45 11:45 11:45 RBC (4.30-5.90) m/uL Hgb (13.0-17.5) gm/dL Hct (39.0-53.0) % Plt Count (150-450) k/uL Lymphocytes # (1.0-4.8) k/uL ABG pCO2 (35-45) mmHg ABG HCO3 (21-25) mmol/L ABG Total CO2 (19-24) mmol/L ABG O2 Saturation (94-97) % Sodium (137-145) mmol/L Potassium (3.5-5.1) mmol/L Chloride (98-107) mmol/L Carbon Dioxide (22-30) mmol/L BUN (9-20) mg/dL Creatinine (0.66-1.25) mg/dL Glucose (74-99) mg/dL POC Glucose (mg/dL) 217 H (70-110) mg/dL Calcium (8.4-10.2) mg/dL Creatine Kinase 995 H (55-170) U/L Vitamin B12 1686.0 H (200.0-944.0) pg/mL 09/09/23 09/09/23 09/09/23 Range/Units 12:24 14:13 17:49 RBC (4.30-5.90) m/uL Hgb (13.0-17.5) gm/dL Hct (39.0-53.0) % Plt Count (150-450) k/uL Lymphocytes # (1.0-4.8) k/uL ABG pCO2 (35-45) mmHg ABG HCO3 (21-25) mmol/L ABG Total CO2 (19-24) mmol/L ABG O2 Saturation (94-97) % Sodium (137-145) mmol/L Potassium (3.5-5.1) mmol/L Chloride (98-107) mmol/L Carbon Dioxide (22-30) mmol/L BUN (9-20) mg/dL Creatinine (0.66-1.25) mg/dL Glucose (74-99) mg/dL POC Glucose (mg/dL) 192 H 182 H 236 H (70-110) mg/dL Calcium (8.4-10.2) mg/dL Creatine Kinase (55-170) U/L Vitamin B12 (200.0-944.0) pg/mL 09/09/23 09/09/23 09/09/23 Range/Units 20:00 20:03 23:29 RBC (4.30-5.90) m/uL Hgb (13.0-17.5) gm/dL Hct (39.0-53.0) % Plt Count (150-450) k/uL Lymphocytes # (1.0-4.8) k/uL ABG pCO2 (35-45) mmHg ABG HCO3 (21-25) mmol/L ABG Total CO2 (19-24) mmol/L ABG O2 Saturation (94-97) % Sodium (137-145) mmol/L Potassium 3.1 L (3.5-5.1) mmol/L Chloride (98-107) mmol/L Carbon Dioxide (22-30) mmol/L BUN (9-20) mg/dL Creatinine (0.66-1.25) mg/dL Glucose (74-99) mg/dL POC Glucose (mg/dL) 245 H 247 H (70-110) mg/dL Calcium (8.4-10.2) mg/dL Creatine Kinase (55-170) U/L Vitamin B12 (200.0-944.0) pg/mL 09/10/23 09/10/23 09/10/23 Range/Units 02:15 02:15 05:00 RBC 3.76 L 3.77 L (4.30-5.90) m/uL Hgb 11.3 L 11.4 L (13.0-17.5) gm/dL Hct 35.0 L 35.0 L (39.0-53.0) % Plt Count 43 L 49 L (150-450) k/uL Lymphocytes # 0.6 L 0.6 L (1.0-4.8) k/uL ABG pCO2 (35-45) mmHg ABG HCO3 (21-25) mmol/L ABG Total CO2 (19-24) mmol/L ABG O2 Saturation (94-97) % Sodium 152 H (137-145) mmol/L Potassium (3.5-5.1) mmol/L Chloride 128 H (98-107) mmol/L Carbon Dioxide 16 L (22-30) mmol/L BUN 64 H (9-20) mg/dL Creatinine 1.46 H (0.66-1.25) mg/dL Glucose 250 H (74-99) mg/dL POC Glucose (mg/dL) (70-110) mg/dL Calcium 7.0 L (8.4-10.2) mg/dL Creatine Kinase (55-170) U/L Vitamin B12 (200.0-944.0) pg/mL 09/10/23 09/10/23 Range/Units 05:29 05:55 RBC (4.30-5.90) m/uL Hgb (13.0-17.5) gm/dL Hct (39.0-53.0) % Plt Count (150-450) k/uL Lymphocytes # (1.0-4.8) k/uL ABG pCO2 25 L (35-45) mmHg ABG HCO3 18 L (21-25) mmol/L ABG Total CO2 18 L (19-24) mmol/L ABG O2 Saturation 99.0 H (94-97) % Sodium (137-145) mmol/L Potassium (3.5-5.1) mmol/L Chloride (98-107) mmol/L Carbon Dioxide (22-30) mmol/L BUN (9-20) mg/dL Creatinine (0.66-1.25) mg/dL Glucose (74-99) mg/dL POC Glucose (mg/dL) 211 H (70-110) mg/dL Calcium (8.4-10.2) mg/dL Creatine Kinase (55-170) U/L Vitamin B12 (200.0-944.0) pg/mL Microbiology - Last 24 Hours (Table) 09/08/23 02:40 Gram Stain - Final Sputum Sputum Culture - Final Escherichia coli Staphylococcus aureus Strep agalactiae - (group b) 09/07/23 23:15 Blood Culture - Preliminary Blood Assessment and Plan Assessment: Acute diabetic ketoacidosis, recovered with closure of the anion gap. Severe anion gap metabolic acidosis, secondary to above, normal lactate, secondary to DKA Hyperchloremic hypernatremia Hypotension and shock, hypovolemic in nature patient was aggressively Treated with IV fluids. The patient's hemodynamics is stable Mechanical ventilator management, patient was intubated for airway protection, reportedly found unresponsive in the field. Intubated by EMS and then triaged at [facility]. Chest x-ray shows patient has some limited atelectatic changes and infiltrates in lung bases. Sputum is positive for E. coli, Streptococcus and MSSA and the patient is currently on IV cefepime. Chest x-ray findings are stable. Encephalopathy, rule out anoxic encephalopathy. CAT scan of the brain does not show any not showing any acute abnormalities. EEG showed no evidence of any seizure there is diffuse encephalopathy. The patient not ready for weaning or extubation at this point in time. Acute rhabdomyolysis, CPK level were elevated. Awaiting follow-up CPK levels, and the levels were essentially downtrending Acute kidney injury, secondary to combination of above, renal function is improving Elevated troponins, likely supply/demand mismatch History of type 2 diabetes mellitus History of bilateral great toe amputations History of hyperlipidemia History of coronary artery disease with previous PCI/stent History of seizure disorder, no seizure activity noted Encephalopathy secondary to above and the patient is currently off propofol and the mental status being monitored. Plan: Monitor mental status, remains encephalopathic. Remains off propofol. No sedative medications. Ventilator setting has been switched to a pressure control mode of mechanical ventilation and the patient was placed on a pressure control of 15, rate of 20, FiO2 of 35% with a PEEP of 5 Continue on the mechanical ventilator. No ventilator changes will be done today. Switch this patient to Levemir insulin 25 units along with NovoLog sliding scale coverage The patient on enteral feeding for nutritional support and dietary consultation was obtained and the patient started on Glucerna Monitor electrolytes and replace per protocol Discontinue IV fluids and put the patient on free water flushes through the OG Patient is currently off pressors Echocardiogram was noted and the patient has impaired LV function with an ejection fraction of 40 to 45% Continue IV cefepime 2 g every 12 hours, pending further cultures Neurology consultation appreciated Monitor CPK levels improving and downtrending Will keep the patient on mechanical ventilator. Will monitor mental status. Will continue to follow make further recommendations based on his progress. There is a critical care evaluation that was done more than 30 minutes. Time with Patient: Greater than 30
--- NOTE | 2023-09-10 12:29 | P.PN ---
Subjective Progress Note Date: 09/10/23 H&P Date: 09/08/23 Chief Complaint: DKA, hypotension, shock This is a 67-year-old gentleman with past medical history significant for diabetes mellitus, bilateral great toe amputations, CAD, NH, seizure disorder,intubated in the field, transferred from [place] [facility], admitted with significant DKA, hypotension, shock and multiple other medical issues. C urrently in the ICU, remains vent dependent on 35% FiO2 +5 of PEEP. Maintained on Levophed, bicarb, vasopressin, amiodarone and insulin drips as well as D5.45 NS IV fluids. Requiring Flores hugger. Patient has not seen PCP since June 2022, had proceeded to live at [facility] in [place]. ICU staff reports significant other reported that patient became unhappy living at the [facility], came to live with her, patient was sick for approximately 4 days and she discovered him unresponsive on her couch. Unresponsive with the exception of winces at noxious stimuli, no spontaneous eye-opening. Brain CT reported no acute intracranial hemorrhage or midline shift, mild diffuse age- related cerebral atrophy and moderate probable chronic small vessel ischemic change redemonstrated. ABGs on arrival reported pH 7.04, pCO2 25, pO2 204, bicarb 7, total CO2 8, O2 sat 99.7, base excess -22.6 on 35% FiO2. chest x-ray reported lungs clear, no infiltrates, cardiac silhouette size within normal limits. Outside toxicology reported as negative;serum alcohol less than 10. received 3 L crystalloids, 1 L saline bolus, 2 g bicarb in the ER with pressors initiated. Procalcitonin 0.29, WBC count 8.0, hemoglobin 14.4, platelets 127,Sodium 143,151, potassium 5.2, 3.2, chloride 115,124, bicarb less than 5, 18, anion gap unmeasurable, 9, BUN 134, 110, creatinine 4.29, 2.76, glucose 910, 332. Lactic 1.1. LFTs WNL. Ammonia less than 9. CPK 882, 1068. Troponin 0.084. NT BNP 2720. EKG reported normal sinus rhythm. UA positive for hyaline casts, ketones ,glucose, and protein. Negative for nitrates. No seizure activity reported. 09/09/2023 paroxysmal atrial fibrillation with RVR, maintained on amiodarone drip ,telemetry currently sinus rhythm. vasopressors weaned off late last night. Remains ventilator dependent with FiO2 35%/+5 of PEEP. Chest x-ray reported suspected underlying COPD, mild patchy medial basilar densities, likely atelectasis .echo reporting technically difficult study , moderately impaired LV function EF of 40-45%. Hemoglobin A1c 11.9. Continues on insulin drip. Anion gap 6, bicarb 17, blood sugars better controlled. Sodium 150, potassium 3.3 renal function improving, BUN 88, creatinine 1.9. Preliminary sputum culture growing gram-negative bacilli, presumptive Staph aureus, blood cultures in progress. Maxipime initiated. Brain CT repeated last night reporting no significant change from most recent prior CT. remains off of sedation, grimacin g to noxious stimuli. 09/10/2023 EEG reported abnormal, background slowing suggestive of severe ence phalopathy likely due to toxic metabolic derangement. Otherwise there is no focal slowing, epileptiform discharges or seizures on the EEG. Continues on Keppra -no seizure activity. Not following commands. Staff reports patient is opening eyes to voice. Grimaces to pain. Remains off pressors and vent dependent with FiO2 35%/+5 of PEEP. Chest x-ray pending. Tmax 100.3, normal WBC. Hemoglobin 11.4, platelets 49 . sputum culture reporting E. coli, Staphylococcus aureus/MSSA, strep agalactiae group B. Maintained on cefepime. Receiving IV fluid hydration of half-normal saline , sodium 152, chloride 128. renal function improving. bicarb 16, BUN 64, creatinine 1.46. On tube feeds of Glucerna ,blood sugars in the mid to low 200s, A1c 11.9. Objective - Vital Signs Vital signs: Vital Signs Temp 100.2 F H 09/10/23 08:00 Pulse 86 09/10/23 11:00 Resp 20 09/10/23 11:00 BP 80/55 09/08/23 01:58 Pulse Ox 98 09/10/23 11:00 FiO2 35 09/10/23 11:22 Intake & Output 09/09/23 09/10/23 09/10/23 18:59 06:59 18:59 Intake Total 9915.662 0922 833 Output Total 1215 1195 880 Balance 496.874 217 -47 Weight 92.6 kg 93.8 kg Intake: IV 1522 1272 530 Pressure Bag 72 72 30 Sodium Chloride 0.45% 1, 1200 1200 500 000 ml @ 100 mls/hr IV . Q10H [facility] Rx#:[id number] Sodium Phosphate 30 mmol 250 In Dextrose 5% in Water 250 ml @ 65 mls/hr IVPB ONCE ONE Rx#:[id number] Intake, IV Titration 104.874 100 Amount Cefepime 2 gm In Sodium 100 100 Chloride 0.9% 100 ml @ 25 mls/hr IVPB Q12HR [facility] Rx #:[id number] Insulin Regular 100 unit 4.874 In Sodium Chloride 0.9% 100 ml @ Titrate IV .Q0M [facility] Rx#:[id number] Tube Feeding 110 123 Other 85 30 80 Output: Urine 1215 1195 880 Other: Voiding Method Indwelling Catheter Indwelling Catheter Indwelling Catheter ABP, PAP, CO, CI - Last Documented Arterial Blood Pressure 153/58 - Exam PHYSICAL EXAM: VITAL SIGNS: [As above] GENERAL: Intubated, unresponsive, no sedation, OG present HEENT: Normocephalic, mucous membranes dry NECK: Supple, no JVD. CARDIOVASCULAR: S1, S2 regular. Systolic murmur RESPIRATION: Unlabored, equal air entry, clear to auscultation. ABDOMEN: Soft, nondistended ,nontender . No guarding. no masses palpable. LEGS: No edema. no swelling. Prior bilateral great toe amputations. NERVOUS SYSTEM: Limited exam, unable to assess at this time. Skin: no rash noted Microbiology 09/08/23 02:40 Sputum Gram Stain - Final 09/08/23 02:40 Sputum Sputum Culture - Final Escherichia coli Staphylococcus aureus Strep agalactiae - (group b) 09/07/23 23:15 Blood Blood Culture - Preliminary - Labs CBC & Chem 7: 09/10/23 05:00 09/10/23 02:15 Labs: Abnormal Lab Results - Last 24 Hours (Table) 09/09/23 09/09/23 09/09/23 Range/Units 11:45 11:45 12:24 RBC (4.30-5.90) m/uL Hgb (13.0-17.5) gm/dL Hct (39.0-53.0) % Plt Count (150-450) k/uL Lymphocytes # (1.0-4.8) k/uL ABG pCO2 (35-45) mmHg ABG HCO3 (21-25) mmol/L ABG Total CO2 (19-24) mmol/L ABG O2 Saturation (94-97) % Sodium (137-145) mmol/L Potassium (3.5-5.1) mmol/L Chloride (98-107) mmol/L Carbon Dioxide (22-30) mmol/L BUN (9-20) mg/dL Creatinine (0.66-1.25) mg/dL Glucose (74-99) mg/dL POC Glucose (mg/dL) 192 H (70-110) mg/dL Calcium (8.4-10.2) mg/dL Creatine Kinase 995 H (55-170) U/L Vitamin B12 1686.0 H (200.0-944.0) pg/mL 09/09/23 09/09/23 09/09/23 Range/Units 14:13 17:49 20:00 RBC (4.30-5.90) m/uL Hgb (13.0-17.5) gm/dL Hct (39.0-53.0) % Plt Count (150-450) k/uL Lymphocytes # (1.0-4.8) k/uL ABG pCO2 (35-45) mmHg ABG HCO3 (21-25) mmol/L ABG Total CO2 (19-24) mmol/L ABG O2 Saturation (94-97) % Sodium (137-145) mmol/L Potassium 3.1 L (3.5-5.1) mmol/L Chloride (98-107) mmol/L Carbon Dioxide (22-30) mmol/L BUN (9-20) mg/dL Creatinine (0.66-1.25) mg/dL Glucose (74-99) mg/dL POC Glucose (mg/dL) 182 H 236 H (70-110) mg/dL Calcium (8.4-10.2) mg/dL Creatine Kinase (55-170) U/L Vitamin B12 (200.0-944.0) pg/mL 09/09/23 09/09/23 09/10/23 Range/Units 20:03 23:29 02:15 RBC 3.76 L (4.30-5.90) m/uL Hgb 11.3 L (13.0-17.5) gm/dL Hct 35.0 L (39.0-53.0) % Plt Count 43 L (150-450) k/uL Lymphocytes # 0.6 L (1.0-4.8) k/uL ABG pCO2 (35-45) mmHg ABG HCO3 (21-25) mmol/L ABG Total CO2 (19-24) mmol/L ABG O2 Saturation (94-97) % Sodium (137-145) mmol/L Potassium (3.5-5.1) mmol/L Chloride (98-107) mmol/L Carbon Dioxide (22-30) mmol/L BUN (9-20) mg/dL Creatinine (0.66-1.25) mg/dL Glucose (74-99) mg/dL POC Glucose (mg/dL) 245 H 247 H (70-110) mg/dL Calcium (8.4-10.2) mg/dL Creatine Kinase (55-170) U/L Vitamin B12 (200.0-944.0) pg/mL 09/10/23 09/10/23 09/10/23 Range/Units 02:15 05:00 05:29 RBC 3.77 L (4.30-5.90) m/uL Hgb 11.4 L (13.0-17.5) gm/dL Hct 35.0 L (39.0-53.0) % Plt Count 49 L (150-450) k/uL Lymphocytes # 0.6 L (1.0-4.8) k/uL ABG pCO2 (35-45) mmHg ABG HCO3 (21-25) mmol/L ABG Total CO2 (19-24) mmol/L ABG O2 Saturation (94-97) % Sodium 152 H (137-145) mmol/L Potassium (3.5-5.1) mmol/L Chloride 128 H (98-107) mmol/L Carbon Dioxide 16 L (22-30) mmol/L BUN 64 H (9-20) mg/dL Creatinine 1.46 H (0.66-1.25) mg/dL Glucose 250 H (74-99) mg/dL POC Glucose (mg/dL) 211 H (70-110) mg/dL Calcium 7.0 L (8.4-10.2) mg/dL Creatine Kinase (55-170) U/L Vitamin B12 (200.0-944.0) pg/mL 09/10/23 09/10/23 Range/Units 05:55 11:36 RBC (4.30-5.90) m/uL Hgb (13.0-17.5) gm/dL Hct (39.0-53.0) % Plt Count (150-450) k/uL Lymphocytes # (1.0-4.8) k/uL ABG pCO2 25 L (35-45) mmHg ABG HCO3 18 L (21-25) mmol/L ABG Total CO2 18 L (19-24) mmol/L ABG O2 Saturation 99.0 H (94-97) % Sodium (137-145) mmol/L Potassium (3.5-5.1) mmol/L Chloride (98-107) mmol/L Carbon Dioxide (22-30) mmol/L BUN (9-20) mg/dL Creatinine (0.66-1.25) mg/dL Glucose (74-99) mg/dL POC Glucose (mg/dL) 281 H (70-110) mg/dL Calcium (8.4-10.2) mg/dL Creatine Kinase (55-170) U/L Vitamin B12 (200.0-944.0) pg/mL Microbiology - Last 24 Hours (Table) 09/08/23 02:40 Gram Stain - Final Sputum Sputum Culture - Final Escherichia coli Staphylococcus aureus Strep agalactiae - (group b) 09/07/23 23:15 Blood Culture - Preliminary Blood Assessment and Plan Assessment: Acute DKA, anion gap closed ,recovered Severe anion gap metabolic acidosis secondary to the above, status post bicarb drip. Hypotensive ,hypovolemic shock, status post pressor dependent Acute hypoxic respiratory failure, mechanical ventilator dependent. Sputum culture reporting E. coli, Staphylococcus aureus-MSSA, strep agalactiae group B. Hyperchloremic hypernatremia Thrombocytopenia Paroxysmal atrial fibrillation Sepsis, secondary to all the above Acute metabolic encephalopathy secondary to all the above, suspect anoxic. Brain CT did not report any acute abnormalities, EEG reported slowing suggestive of severe encephalopathy likely due to toxic metabolic derangement. Acute rhabdomyolysis Acute renal failure, improving Elevated troponin, multifactorial secondary to all the above, less likely ACS as per cardiology. Severe dehydration Diabetes mellitus type 2, hemoglobin A1c 11.9 CAD, history of NH, stent History of seizure disorder, on Keppra Plan: Continue on current medication resume ,monitoring and symptomatic treatment. ICU management as per parcel post weigher. Cefepime. Maintain tight control of blood sugars, transitioned to Levemir and NovoLog sliding scale with close monitoring of Accu-Cheks. prognosis guarded, given multiple complex medical issues. The impression and plan of care has been dictated as directed. : I performed a history and examination of this patient, discussed the same with the dictator. I agree with the dictator's note ,documented as a scribe. Any additional findings or plans will be noted.
[2023-09-10] MEDS: METOPROLOL TARTRATE 25 MG TAB PO STA (16:30)
[2023-09-10] MEDS: hydrALAZINE HCL 20 MG/ML 1 ML VIAL IVP PRN (17:38)
--- NOTE | 2023-09-10 17:50 | P.PN ---
Subjective Progress Note Date: 09/10/23 I am following-up with patient and per the nurse he is doing better and following few simple commands and raising the right arm above gravity. He continues to be off sedation. Objective - Vital Signs Vital signs: Vital Signs Temp 99.0 F 09/10/23 16:00 Pulse 92 09/10/23 17:00 Resp 5 L 09/10/23 17:00 BP 147/82 09/10/23 17:00 Pulse Ox 97 09/10/23 17:00 FiO2 35 09/10/23 16:44 Intake & Output 09/09/23 09/10/23 09/10/23 18:59 06:59 18:59 Intake Total 8762.567 6207 1418 Output Total 1215 1195 1365 Balance 496.874 217 53 Weight 92.6 kg 93.8 kg Intake: IV 1522 1272 460 Pressure Bag 72 72 60 Sodium Chloride 0.45% 1, 1200 1200 400 000 ml @ 100 mls/hr IV . Q10H [facility] Rx#:[id number] Sodium Phosphate 30 mmol 250 In Dextrose 5% in Water 250 ml @ 65 mls/hr IVPB ONCE ONE Rx#:[id number] Intake, IV Titration 104.874 100 Amount Cefepime 2 gm In Sodium 100 100 Chloride 0.9% 100 ml @ 25 mls/hr IVPB Q12HR [facility] Rx #:[id number] Insulin Regular 100 unit 4.874 In Sodium Chloride 0.9% 100 ml @ Titrate IV .Q0M [facility] Rx#:[id number] Tube Feeding 110 278 Other 85 30 580 Output: Urine 1215 1195 1365 Other: Voiding Method Indwelling Catheter Indwelling Catheter Indwelling Catheter ABP, PAP, CO, CI - Last Documented Arterial Blood Pressure 147/58 - Exam General: Lying in bed and is not in acute distress. Resp: Intubated on ventilator. Neuro: Limited. Patient is drowsy but briefly open eyes to voice. Is following simple commands (showed thumbs up on the right hand). Pupils are round, equal and reactive to light. Is raising the right upper extremity above gravity. Some of the work-up during this hospital visit consisted of: Patient is afebrile and the white blood cell has been normal Initial presentation to our facility his serum glucose was 910 Initially creatinine is 4.29 calcium is 8.3, phosphorus 8.6 Current phosphorus is 1.8, magnesium is 2.9 TSH is 1.350 clinically ammonia level is less than 9 CK level is 882 Vitamin B12: [address] of the head is reported as no acute intracranial hemorrhage or midline shift. There is mild diffuse age-related cerebral atrophy and mild to moderate probable chronic small vessel ischemic change redemonstrated. No significant change from most recent prior CT. Personally reviewed the CT and I agree there is no acute or subacute ischemia. Echo is reported as technically difficult study. Limited study. Overall left ventricle systolic function moderately impaired. Routine EEG: Is abnormal. The background slowing is suggestive of severe encephalopathy likely due to toxic-metabolic derrangement. Otherwise, there is no focal slowing, epileptiform discharges or seizure on the EEG. - Labs CBC & Chem 7: 09/10/23 05:00 09/10/23 02:15 Labs: Abnormal Lab Results - Last 24 Hours (Table) 09/09/23 09/09/23 09/09/23 Range/Units 11:45 17:49 20:00 RBC (4.30-5.90) m/uL Hgb (13.0-17.5) gm/dL Hct (39.0-53.0) % Plt Count (150-450) k/uL Lymphocytes # (1.0-4.8) k/uL ABG pCO2 (35-45) mmHg ABG HCO3 (21-25) mmol/L ABG Total CO2 (19-24) mmol/L ABG O2 Saturation (94-97) % Sodium (137-145) mmol/L Potassium 3.1 L (3.5-5.1) mmol/L Chloride (98-107) mmol/L Carbon Dioxide (22-30) mmol/L BUN (9-20) mg/dL Creatinine (0.66-1.25) mg/dL Glucose (74-99) mg/dL POC Glucose (mg/dL) 236 H (70-110) mg/dL Calcium (8.4-10.2) mg/dL Vitamin B12 1686.0 H (200.0-944.0) pg/mL 09/09/23 09/09/23 09/10/23 Range/Units 20:03 23:29 02:15 RBC 3.76 L (4.30-5.90) m/uL Hgb 11.3 L (13.0-17.5) gm/dL Hct 35.0 L (39.0-53.0) % Plt Count 43 L (150-450) k/uL Lymphocytes # 0.6 L (1.0-4.8) k/uL ABG pCO2 (35-45) mmHg ABG HCO3 (21-25) mmol/L ABG Total CO2 (19-24) mmol/L ABG O2 Saturation (94-97) % Sodium (137-145) mmol/L Potassium (3.5-5.1) mmol/L Chloride (98-107) mmol/L Carbon Dioxide (22-30) mmol/L BUN (9-20) mg/dL Creatinine (0.66-1.25) mg/dL Glucose (74-99) mg/dL POC Glucose (mg/dL) 245 H 247 H (70-110) mg/dL Calcium (8.4-10.2) mg/dL Vitamin B12 (200.0-944.0) pg/mL 09/10/23 09/10/23 09/10/23 Range/Units 02:15 05:00 05:29 RBC 3.77 L (4.30-5.90) m/uL Hgb 11.4 L (13.0-17.5) gm/dL Hct 35.0 L (39.0-53.0) % Plt Count 49 L (150-450) k/uL Lymphocytes # 0.6 L (1.0-4.8) k/uL ABG pCO2 (35-45) mmHg ABG HCO3 (21-25) mmol/L ABG Total CO2 (19-24) mmol/L ABG O2 Saturation (94-97) % Sodium 152 H (137-145) mmol/L Potassium (3.5-5.1) mmol/L Chloride 128 H (98-107) mmol/L Carbon Dioxide 16 L (22-30) mmol/L BUN 64 H (9-20) mg/dL Creatinine 1.46 H (0.66-1.25) mg/dL Glucose 250 H (74-99) mg/dL POC Glucose (mg/dL) 211 H (70-110) mg/dL Calcium 7.0 L (8.4-10.2) mg/dL Vitamin B12 (200.0-944.0) pg/mL 09/10/23 09/10/23 Range/Units 05:55 11:36 RBC (4.30-5.90) m/uL Hgb (13.0-17.5) gm/dL Hct (39.0-53.0) % Plt Count (150-450) k/uL Lymphocytes # (1.0-4.8) k/uL ABG pCO2 25 L (35-45) mmHg ABG HCO3 18 L (21-25) mmol/L ABG Total CO2 18 L (19-24) mmol/L ABG O2 Saturation 99.0 H (94-97) % Sodium (137-145) mmol/L Potassium (3.5-5.1) mmol/L Chloride (98-107) mmol/L Carbon Dioxide (22-30) mmol/L BUN (9-20) mg/dL Creatinine (0.66-1.25) mg/dL Glucose (74-99) mg/dL POC Glucose (mg/dL) 281 H (70-110) mg/dL Calcium (8.4-10.2) mg/dL Vitamin B12 (200.0-944.0) pg/mL Microbiology - Last 24 Hours (Table) 09/07/23 23:15 Blood Culture - Preliminary Blood 09/08/23 02:40 Gram Stain - Final Sputum Sputum Culture - Final Escherichia coli Staphylococcus aureus Strep agalactiae - (group b) Assessment and Plan Assessment: This is a 67-year-old gentleman with history of seizure disorder, diabetes mellitus, amputation of the toes due to his uncontrolled diabetes who was transferred from [place] to our facility on 09/07/2023 for his escalation of care of his acute DKA. Presented to our facility his serum glucose was as high as 900s opiates in the 200s and he continues to have altered mental status even though he is not been on any sedation in our facility. Patient has hypophosphatemia hypermagnesemia, hypernatremia Altered Mental status is due to metabolic encephalopathy due multifactorial (DKA, MARIANO, with electrolyte disturbance) and component of hypoxia. Had two CT head which are negative for acute process. EEG is severe encephalopathy but no seizure or discharges appreciated----mentation is improving Acute Diabetic ketoacidosis--resolved Hypernatremia Hyermagnesemia Hypophosphatemia Acute kidney injury--trending down Severe anion gap metabolic acidosis Acute rhabdomyolysis Uncontrolled diabetes mellitus and hemoglobin A1c is 11.9 History of seizure disorder and is on Keppra History of amputation of the digits and lower extremities Plan: Is on home dose of Keppra 500 mg twice a day. Patient is on aspirin 81 mg and Lipitor 40 mg nightly. Patient is making improvement today. Will defer the rest of the medical management to primary and other specialists The plan is discussed with ICU team. Time with Patient: Less than 30
[2023-09-10 18:43] LABS: Glucose,Whole Blood 248 mg/dL (70-110)
--- NOTE | 2023-09-10 19:32 | P.PN ---
Subjective Progress Note Date: 09/10/23 Romel Malin is a 67-year-old male with past medical history significant for diabetes mellitus, prior toe amputations, hyperlipidemia, coronary artery disease with previous stents, and seizure disorder. He is currently intubated to the mechanical ventilator, unresponsive without any sedation, unable to provide any information. Patient was transferred from [facility] late last night. Apparently, found unresponsive by his girlfriend, and last known well was 24 hours prior. Patient was intubated by EMS on arrival and triaged to [facility]. Initial presentation was consistent with DKA. Subsequently, the patient was transferred to [facility]. Patient is currently in trauma bay 1, he is intubated mechanical ventilator. Chest x-ray on arrival to our facility shows the endotracheal tube in satisfactory position approximately 4 cm above the mahesh. There is an orogastric tube that should be advanced. Right IJ central line catheter appears to terminate at the Cavo atrial junction. No focal infiltrates or evidence of pneumonia. Current ventilator settings are assist-control, respiratory rate 14, tidal volume 500, FiO2 35%, PEEP of 5. He is breathing slightly above set rate. Not on any sedation. Remains unresponsive even to deep painful stimuli. CT of the brain did not show any acute intracranial hemorrhage or mass effect. ABG is consistent with profound metabolic acidosis, with a PaO2 of 204, pCO2 of 25, pH of 7.04. Patient has been given a total of 2 A of bicarb. He is hypotensive and in a shock state, he has been fluid resuscitated with at least 2.5 L crystalloid fluid. No insulin infusion is currently ordered. He remains profoundly hypotensive, and has been started on norepinephrine which is currently infusing at 0.06 mcg/kg/min. CBC: WBC count 8.8, hemoglobin 14.5, hematocrit 50.3, platelets 136. CMP: Sodium 143, potassium 5.2, chloride 115, serum bicarb less than 5, anion gap unmeasurable, BUN 134, creatinine 4.29, gluc ose 910. Lactic 1.1. LFTs not elevated. Total bilirubin 0.7. Ammonia less than 9. CPK was 882. Troponin 0.084. NT BNP 2720. EKG shows normal sinus rhythm and is nondiagnostic for acute ischemia. Urinalysis positive for glucose and ketones. Urine toxicology screen at outside facility was essentially negative. Serum alcohol less than 10. Patient will be admitted to the intensive care unit once bed available. 09/09/2023 Patient grimaces to pain but does not follow commands. He remains off sedatives. Suspect to be hypoxic encephalopathy. Neurolgy was consulted and advises mentation is likely due to metabolic injury. CT scan of the brain yesterday that showed no midline shift or swelling. Patient anion gap has closed with an anion gap of 6, bicarb 17. Potassium at 3.3. Replacement ongoing per protocol. Blood sugars 879. Insulin IV will be discontinued and will transiotion to Insulin detemir SQ. Patient began to show increased breathing on the mechanical ventilator and was switched to pressure control rate of 20, tidal volume of 500, FiO2 of 35%, and a PEEP of 5. ABG showed pH of 7.4 with a pCO2 of 29 and pO2 of 103. WBC is at 5 with a hemoglobin of 12 and a platelet count of 62. Heparin SQ discontinued. Chest x-ray show atelectatic changes in lung base bilaterally. Sputum is showing 09/09 Patient still encephaolpathic but now opens eyes to command, moves arms independently, only grimaces to pain. Patient still intubated and comfortable on current vent settings. Still not on any sedation. Potassium replacement on going as per protocol but on the uptrend latest at 3.5 . Glucose at the 211 and sustaining at levels of 200s. On Glucerna 1.5 rate at 30cc/hr via enteral feeding. Insulin increased to 25 units and on sliding scale coverage. Sputum culture grew gram-negative bacillus and presumptive Staph aureus. started on IV Cefepime. WBC 4.7, hemoglobin 11.4, hematocrit 35 and platelet count 49. Blood pressures increase at 140-160/60-80. Started on IV hydralazine 10mg PRN. Afebrile on assessment. Sodium elevated trend at 152. 0.45% normal saline discontinued and start on free water through OG tube. Objective - Vital Signs Vital signs: Vital Signs Temp 99.0 F 09/10/23 16:00 Pulse 92 09/10/23 17:00 Resp 5 L 09/10/23 17:00 BP 147/82 09/10/23 17:00 Pulse Ox 97 09/10/23 17:00 FiO2 35 09/10/23 16:44 Intake & Output 09/09/23 09/10/23 09/10/23 18:59 06:59 18:59 Intake Total 0095.389 6930 1430 Output Total 1215 1195 1550 Balance 496.874 217 -120 Weight 92.6 kg 93.8 kg Intake: IV 1522 1272 472 Pressure Bag 72 72 72 Sodium Chloride 0.45% 1, 1200 1200 400 000 ml @ 100 mls/hr IV . Q10H [facility] Rx#:[id number] Sodium Phosphate 30 mmol 250 In Dextrose 5% in Water 250 ml @ 65 mls/hr IVPB ONCE ONE Rx#:[id number] Intake, IV Titration 104.874 100 Amount Cefepime 2 gm In Sodium 100 100 Chloride 0.9% 100 ml @ 25 mls/hr IVPB Q12HR [facility] Rx #:[id number] Insulin Regular 100 unit 4.874 In Sodium Chloride 0.9% 100 ml @ Titrate IV .Q0M [facility] Rx#:[id number] Tube Feeding 110 278 Other 85 30 580 Output: Urine 1215 1195 1550 Other: Voiding Method Indwelling Catheter Indwelling Catheter Indwelling Catheter ABP, PAP, CO, CI - Last Documented Arterial Blood Pressure 147/58 - Constitutional Constitutional Comment(s): not in acute distress, on mechanical ventilator - EENT Eyes: Present: anicteric sclerae, PERRLA, normal appearance - Neck Details: neck is supple, range of motion cannot be assessed Carotids: bilateral: upstroke normal, bruit absent Thyroid: bilateral: normal size - Respiratory Respiratory: negative: diminished, dullness, rales, rhonchi, wheezing, prolonged expiration, prolonged inspiration - Cardiovascular Details: no murmurs Heart rate: 95 Rhythm: regular Heart sounds: normal: S1, S2 - Gastrointestinal General gastrointestinal: Present: normal bowel sounds, soft - Integumentary Integumentary: Present: pale - Psychiatric Psychiatric Comment(s): grimaces to pain, does not follow commands - Labs CBC & Chem 7: 09/10/23 05:00 09/10/23 02:15 Labs: Abnormal Lab Results - Last 24 Hours (Table) 09/09/23 09/09/23 09/09/23 Range/Units 11:45 20:00 20:03 RBC (4.30-5.90) m/uL Hgb (13.0-17.5) gm/dL Hct (39.0-53.0) % Plt Count (150-450) k/uL Lymphocytes # (1.0-4.8) k/uL ABG pCO2 (35-45) mmHg ABG HCO3 (21-25) mmol/L ABG Total CO2 (19-24) mmol/L ABG O2 Saturation (94-97) % Sodium (137-145) mmol/L Potassium 3.1 L (3.5-5.1) mmol/L Chloride (98-107) mmol/L Carbon Dioxide (22-30) mmol/L BUN (9-20) mg/dL Creatinine (0.66-1.25) mg/dL Glucose (74-99) mg/dL POC Glucose (mg/dL) 245 H (70-110) mg/dL Calcium (8.4-10.2) mg/dL Vitamin B12 1686.0 H (200.0-944.0) pg/mL 09/09/23 09/10/23 09/10/23 Range/Units 23:29 02:15 02:15 RBC 3.76 L (4.30-5.90) m/uL Hgb 11.3 L (13.0-17.5) gm/dL Hct 35.0 L (39.0-53.0) % Plt Count 43 L (150-450) k/uL Lymphocytes # 0.6 L (1.0-4.8) k/uL ABG pCO2 (35-45) mmHg ABG HCO3 (21-25) mmol/L ABG Total CO2 (19-24) mmol/L ABG O2 Saturation (94-97) % Sodium 152 H (137-145) mmol/L Potassium (3.5-5.1) mmol/L Chloride 128 H (98-107) mmol/L Carbon Dioxide 16 L (22-30) mmol/L BUN 64 H (9-20) mg/dL Creatinine 1.46 H (0.66-1.25) mg/dL Glucose 250 H (74-99) mg/dL POC Glucose (mg/dL) 247 H (70-110) mg/dL Calcium 7.0 L (8.4-10.2) mg/dL Vitamin B12 (200.0-944.0) pg/mL 09/10/23 09/10/23 09/10/23 Range/Units 05:00 05:29 05:55 RBC 3.77 L (4.30-5.90) m/uL Hgb 11.4 L (13.0-17.5) gm/dL Hct 35.0 L (39.0-53.0) % Plt Count 49 L (150-450) k/uL Lymphocytes # 0.6 L (1.0-4.8) k/uL ABG pCO2 25 L (35-45) mmHg ABG HCO3 18 L (21-25) mmol/L ABG Total CO2 18 L (19-24) mmol/L ABG O2 Saturation 99.0 H (94-97) % Sodium (137-145) mmol/L Potassium (3.5-5.1) mmol/L Chloride (98-107) mmol/L Carbon Dioxide (22-30) mmol/L BUN (9-20) mg/dL Creatinine (0.66-1.25) mg/dL Glucose (74-99) mg/dL POC Glucose (mg/dL) 211 H (70-110) mg/dL Calcium (8.4-10.2) mg/dL Vitamin B12 (200.0-944.0) pg/mL 09/10/23 09/10/23 Range/Units 11:36 18:40 RBC (4.30-5.90) m/uL Hgb (13.0-17.5) gm/dL Hct (39.0-53.0) % Plt Count (150-450) k/uL Lymphocytes # (1.0-4.8) k/uL ABG pCO2 (35-45) mmHg ABG HCO3 (21-25) mmol/L ABG Total CO2 (19-24) mmol/L ABG O2 Saturation (94-97) % Sodium (137-145) mmol/L Potassium (3.5-5.1) mmol/L Chloride (98-107) mmol/L Carbon Dioxide (22-30) mmol/L BUN (9-20) mg/dL Creatinine (0.66-1.25) mg/dL Glucose (74-99) mg/dL POC Glucose (mg/dL) 281 H 248 H (70-110) mg/dL Calcium (8.4-10.2) mg/dL Vitamin B12 (200.0-944.0) pg/mL Microbiology - Last 24 Hours (Table) 09/07/23 23:15 Blood Culture - Preliminary Blood 09/08/23 02:40 Gram Stain - Final Sputum Sputum Culture - Final Escherichia coli Staphylococcus aureus Strep agalactiae - (group b) - Imaging and Cardiology Chest x-ray: report reviewed Assessment and Plan Assessment: Acute diabetic ketoacidosis, recovered with closure of the anion gap. Severe anion gap metabolic acidosis, secondary to above, normal lactate, secondary to DKA Hypotension and shock, hypovolemic in nature patient was aggressively Treated with IV fluids. The patient's hemodynamics is stable Mechanical ventilaton via endotracheal intubation. Intubated by EMS and then triaged at [facility]. Chest x-ray shows patient has some limited atelectatic changes and infiltrates in lung bases. Sputum is positive for E. coli, Streptococcus and MSSA and placed on IV cefepime. Encephalopathy, rule out anoxic encephalopathy. CT of the brain does not midline shift or swelling. Acute rhabdomyolysis, CPK level were elevated. Awating new CPK results. On the downtrend Acute kidney injury, secondary to combination of above, renal function is improving Elevated troponins caused by increased myocardial damnd History of type 2 diabetes mellitus History of bilateral great toe amputations History of hyperlipidemia History of coronary artery disease with previous PCI/stent History of seizure disorder, no seizure activity noted Plan: Monitor mental status as patient remains encephalopathic. No sedative medications. Change mechanical ventilator setting to pressure control of 15, rate of 20, FiO2 of 35% with a PEEP of 5 Switch to detemir insulin 25 units along with sliding scale coverage Continue Glucerna diet Monitor electrolytes and replace per protocol Discontinue IV fluids and switch to free water flushes through the OG tube Place on IV hydralzine for elevated blood pressure Continue IV cefepime 2 g every 12 hours, pending further cultures Neurology consultation appreciated Monitor CPK levels improving and downtrending Prognisis is guarded. He is full code. Time with Patient: Less than 30
[2023-09-10] MEDS: METOPROLOL TARTRATE 25 MG TAB PO SCH (20:31)
[2023-09-10] MEDS: INSULIN DETEMIR (LEVEMIR) 100 UNIT/ML SYR SQ SCH (20:31)
[2023-09-10 23:23] LABS: Glucose,Whole Blood 300 mg/dL (70-110)
[2023-09-10 23:48] LABS: Glucose,Whole Blood 243 mg/dL (70-110)
[2023-09-11 04:36] LABS: Basophils % (A) 0 %; Eosinophils % (A) 0 %; HCT 35.4 % (39.0-53.0); HGB 11.5 gm/dL (13.0-17.5); Lymphocytes # (A) 0.5 k/uL (1.0-4.8); Lymphocytes % (A) 7 %; MCH 30.1 pg (25.0-35.0); MCHC 32.5 g/dL (31.0-37.0); MCV 92.5 fL (80.0-100.0); Mean Platelet Volume 12.8; Monocytes # (A) 0.5 k/uL (0-1.0); Monocytes % (A) 6 %; Neutrophils # (A) 6.4 k/uL (1.3-7.7); Neutrophils % (A) 86 %; RBC 3.83 m/uL (4.30-5.90); RDW 15.2 % (11.5-15.5); WBC 7.4 k/uL (3.8-10.6)
[2023-09-11 04:38] LABS: Platelet Count 59 k/uL (150-450)
[2023-09-11 05:00] LABS: ALT 22 U/L (4-49); AST 55 U/L (17-59); African American GFR (CKD) 68 (>60 ml/min/1.73 sqM); Albumin 2.1 g/dL (3.5-5.0); Alkaline Phosphatase 105 U/L (38-126); Anion Gap 4 mmol/L; Blood Urea Nitrogen 51 mg/dL (9-20); Calcium 7.2 mg/dL (8.4-10.2); Carbon Dioxide 20 mmol/L (22-30); Creatine Kinase 214 U/L (55-170); Glucose 219 mg/dL (74-99); Lipase 412 U/L (23-300); Non-African American GFR(CKD) 59 (>60 ml/min/1.73 sqM); Sodium 155 mmol/L (137-145); Total Bilirubin 0.7 mg/dL (0.2-1.3); Total Protein 4.2 g/dL (6.3-8.2)
[2023-09-11 05:29] LABS: Chloride 131 mmol/L (98-107)
[2023-09-11 05:47] LABS: ABG Base Excess -1.9 mmol/L; ABG HCO3 22 mmol/L (21-25); ABG Oxygen Saturation 98.9 % (94-97); ABG PCO2 32 mmHg (35-45); ABG PH 7.44 (7.35-7.45); ABG PO2 109 mmHg (83-108); ABG TCO2 23 mmol/L (19-24); Allen Test Performed? Yes
[2023-09-11 06:18] LABS: Glucose,Whole Blood 220 mg/dL (70-110)
--- NOTE | 2023-09-11 07:51 | XR ---
EXAMINATION TYPE: XR chest 1V portable DATE OF EXAM: 09/11/2023 5:38 AM CLINICAL INDICATION:Male, 67 years old with history of mechanical ventilation; [facility] COMPARISON: One day prior TECHNIQUE: XR chest 1V portable Frontal view of the chest. FINDINGS: Lungs/Pleura: There is no evidence of pleural effusion, focal consolidation, or pneumothorax. Pulmonary vascularity: Unremarkable. Heart/mediastinum: Cardiomediastinal silhouette is unremarkable. Musculoskeletal: No acute osseous pathology. Other findings: None Lines/Tubes: Endotracheal tube with distal tip 7.0 cm above the mahesh. Nasogastric tube with its distal tip and side-port projecting under the diaphragm. Right internal jugular central venous catheter with distal tip at the cavoatrial junction. IMPRESSION: Stable support lines and tubes
[2023-09-11] MEDS: DEXTROSE 5% IN WATER 1,000 ML IV SCH (10:42)
[2023-09-11 12:23] LABS: Glucose,Whole Blood 242 mg/dL (70-110)
--- NOTE | 2023-09-11 12:56 | P.PN ---
Subjective Progress Note Date: 09/11/23 Patient is a 67-year-old male with past medical history significant for diabetes mellitus, prior toe amputations, hyperlipidemia, coronary artery disease with previous stents, and seizure disorder. He is currently intubated to the mechanical ventilator, unresponsive without any sedation, unable to provide any information. Patient was transferred from [facility] late last night. Apparently, found unresponsive by his girlfriend, and last known well was 24 hours prior. Patient was intubated by EMS on arrival and triaged to [facility]. Initial presentation was consistent with DKA. Subsequently, the patient was transferred to [facility]. Patient is currently in trauma bay 1, he is intubated mechanical ventilator. Chest x-ray on arrival to our facility shows the endotracheal tube in satisfactory position approximately 4 cm above the mahesh. There is an orogastric tube that should be advanced. Right IJ central line catheter appears to terminate at the Cavo atrial junction. No focal infiltrates or evidence of pneumonia. Current ventilator settings are assist-control, respiratory rate 14, tidal volume 500, FiO2 35%, PEEP of 5. He is breathing slightly above set rate. Not on any sedation. Remains unresponsive even to deep painful stimuli. CT of the brain did not show any acute intracranial hemorrhage or mass effect. ABG is consistent with profound metabolic acidosis, with a PaO2 of 204, pCO2 of 25, pH of 7.04. Patient has been given a total of 2 A of bicarb. He is hypotensive and in a shock state, he has been fluid resuscitated with at least 2.5 L crystalloid fluid. No insulin infusion is currently ordered. He remains profoundly hypotensive, and has been started on norepinephrine which is currently infusing at 0.06 mcg/kg/min. CBC: WBC count 8.8, hemoglobin 14.5, hematocrit 50.3, platelets 136. CMP: Sodium 143, potassium 5.2, chloride 115, serum bicarb less than 5, anion gap unmeasurable, BUN 134, creatinine 4.29, glucose 910. Lactic 1.1. LFTs not elevated. Total bilirubin 0.7. Ammonia less than 9. CPK was 882. Troponin 0.084. NT BNP 2720. EKG shows normal sinus rhythm and is nondiagnostic for acute ischemia. Urinalysis positive for glucose and ketones. Urine toxicology screen at outside facility was essentially negative. Serum alcohol less than 10. Patient will be admitted to the intensive care unit once bed available. Today's evaluation of 09/09/2023, the patient is being seen for a follow-up. The patient remains off sedatives. He is grimacing to painful stimulation. He did have a CAT scan of the brain yesterday that showed no acute abnormalities. Suspect a component of hypoxic encephalopathy as the patient apparently was hypoxic when the patient was picked up by the EMS. At this point in time, the patient is grimacing only to deep painful stimulation. Not following any commands yet. The patient has recovered from his anion gap metabolic acidosis related to DKA. The patient is currently on half-normal saline at rate of 100 cc an hour. Most recent blood work shows a gap of 6 with a serum bicarb of 17. Sodium levels at 151. Potassium level at 3.3 which is being replaced. Blood sugars 879. The patient remains on insulin drip and the patient will be transition to long-acting insulin. Remains on the mechanical ventilator assist- control mode at rate of 20, tidal volume of 500, FiO2 of 35% with a PEEP of 5. Blood gas showed a pH of 7.4 with a pCO2 of 29 and pO2 of 103. The patient was tachypneic volume second mechanical ventilation the patient was switched to pressure control. CVP was 2 and after receiving a total of 3 L of fluid and the CVP came up to 8 and the patient has been off pressors since 11:30 PM yesterday. Cardiac rhythm is sinus. The patient is completing albuterol and loading and the patient is currently on 0.5 mg/min. Echocardiogram was done and patient has an ejection fraction of 40 to 45%. The white cell count today is at 5 with a hemoglobin of 12 and a platelet count of 62. Chest x-ray findings are stable. Some atelectatic changes in lung base bilaterally. No antibiotic coverage at this point in time. Sputum is showing gram-negative bacillus and presumptive Staph aureus. 09/10/2023, I am seeing the patient for a follow-up. The patient remains encephalopathic. He grimaces to painful stimulation in all 4 extremities and is withdrawing to pain. Nevertheless, does not follow any commands. His mobility is less in his lower extremities compared to the upper extremities. No seizure activity has been noted. CAT scan of the brain was negative. EEG showed moderate to severe encephalopathy. Suspect hypoxic encephalopathy. Meanwhile, the patient remains intubated on mechanical ventilator. On today's evaluation, he is on no sedation. He is on pressure control mode of mechanical ventilation at rate of 20, pressure control of 15, inspiratory time 0.9 with an FiO2 of 35% and a PEEP of 5. Blood gases from today showed a pH of 7.45 with a pCO2 of 25 and a pO2 of 97. Chest x-ray findings are stable and there is no significant interval change and there is no definite acute process. Based on the positive sputum culture, the patient was started on IV cefepime. Sputum sample was positive for a combination of bacteria including E. coli, Staph aureus/MSSA and Streptococcus. He is afebrile. Hemodynamically stable and he is on no pressors. In fact, he has developed some hypochloremic hyponatremia. He remains on half-normal saline at rate of 100 cc an hour. BUN 64 with a creatinine of 1.46 and a sodium level at 152 and a chloride level is 128. Potassium is at 3.5. WBC count is at 4.7 with a hemoglobin of 1.4 and a platelet count of 49. The patient's blood sugar is at 281. The patient remains on Levemir insulin which is at 15 units and the patient is also on sliding scale coverage. The patient is sitting enteral feeding for nutritional support and the patient is on Glucerna at a rate of 31 cc an hour. On 09/11/2023, the patient is being seen for a follow-up. Opening of his eyes. Not following commands consistently. Remains on mechanical ventilator. Currently is on a pressure control mode with rate of 20, pressure of 50 cm of water, respiratory exam of 0.9, FiO2 35% with a PEEP of 5. Blood gas showed a pH of 7.44 with episodes of 32 and pO2 of 109. Chest x-ray findings are stable. Hemodynamically stable. No pressors. He is on no sedative medications for now. Afebrile. Remains on IV cefepime. White cell count is 7.4, hemoglobin is 11.5 and a platelet count of 59. Sodium is 155, potassium is at 4, chloride is 131, BUN is 51 with a creatinine 1.2. LFTs are stable, CPK is down to 214. The patient is running a low-grade fever. Remains on IV cefepime. Sputum culture was polymicrobial including E. coli, Streptococcus and MSSA. Further blood cultures have been sent. No pressors for now. He is currently on Levemir insulin and sliding scale insulin coverage. The patient is also on Glucerna for enteral feeding and nutritional support she is currently at goal at 54 cc an ho ur. Objective - Vital Signs Vital signs: Vital Signs Temp 100.4 F H 09/11/23 08:00 Pulse 80 09/11/23 11:50 Resp 32 H 09/11/23 11:00 BP 99/63 09/11/23 11:00 Pulse Ox 98 09/11/23 11:00 FiO2 35 09/11/23 11:02 Intake & Output 09/10/23 09/11/23 09/11/23 18:59 06:59 18:59 Intake Total 1430 1284 770 Output Total 1550 1160 310 Balance -120 124 460 Weight 94.8 kg Intake: IV 472 72 105 0.9 sodium chloride 75 Pressure Bag 72 72 30 Sodium Chloride 0.45% 1, 400 000 ml @ 100 mls/hr IV . Q10H [facility] Rx#:[id number] Intake, IV Titration 100 Amount Cefepime 2 gm In Sodium 100 Chloride 0.9% 100 ml @ 25 mls/hr IVPB Q12HR [facility] Rx #:[id number] Tube Feeding 278 462 265 Other 580 750 400 Output: Urine 1550 1160 310 Other: Voiding Method Indwelling Catheter Indwelling Catheter Indwelling Catheter # Bowel Movements 1 ABP, PAP, CO, CI - Last Documented Arterial Blood Pressure 152/58 - Exam GENERAL EXAM: Unresponsive, 67-year-old male, intubated to mechanical venti lator, . HEAD: Normocephalic and atraumatic EYES: Sluggish reaction of pupils, equal size. NOSE: Clear with pink turbinates. THROAT: No erythema or exudates. Dry mucous membranes. NECK: No masses, no JVD. CHEST: No chest wall deformity. LUNGS: Equal air entry with no crackles, wheeze, rhonchi or dullness. Intubated mechanical ventilator. Peak pressures 17. No significant endotracheal secretions. CVS: S1 and S2 normal with no soft systolic murmur, regular rhythm. No extra heart sounds ABDOMEN: Abdomen flat, active bowel sounds, no hepatosplenomegaly, no guarding or rigidity. Orogastric tube with small amount of brown output. SPINE: No scoliosis or deformity SKIN: No rashes CENTRAL NERVOUS SYSTEM: encephalopathic with diminished level of consciousness.. No discernible seizure-like activity. Patellar DTRs 1+ bilaterally. Babinski neutral. The patient is grimacing to painful stimul ation. EXTREMITIES: There is no peripheral edema, clubbing, or cyanosis. Peripheral pulses are intact. Remote appearing bilateral great toe amputations. - Labs CBC & Chem 7: 09/11/23 04:20 09/11/23 04:20 Labs: Abnormal Lab Results - Last 24 Hours (Table) 09/10/23 09/10/23 09/10/23 Range/Units 18:40 23:21 23:46 RBC (4.30-5.90) m/uL Hgb (13.0-17.5) gm/dL Hct (39.0-53.0) % Plt Count (150-450) k/uL Lymphocytes # (1.0-4.8) k/uL ABG pCO2 (35-45) mmHg ABG pO2 (83-108) mmHg ABG O2 Saturation (94-97) % Sodium (137-145) mmol/L Chloride (98-107) mmol/L Carbon Dioxide (22-30) mmol/L BUN (9-20) mg/dL Creatinine (0.66-1.25) mg/dL Glucose (74-99) mg/dL POC Glucose (mg/dL) 248 H 300 H 243 H (70-110) mg/dL Calcium (8.4-10.2) mg/dL Phosphorus (2.5-4.5) mg/dL Creatine Kinase (55-170) U/L Total Protein (6.3-8.2) g/dL Albumin (3.5-5.0) g/dL Lipase (23-300) U/L 09/11/23 09/11/23 09/11/23 Range/Units 04:20 04:20 05:43 RBC 3.83 L (4.30-5.90) m/uL Hgb 11.5 L (13.0-17.5) gm/dL Hct 35.4 L (39.0-53.0) % Plt Count 59 L (150-450) k/uL Lymphocytes # 0.5 L (1.0-4.8) k/uL ABG pCO2 32 L (35-45) mmHg ABG pO2 109 H (83-108) mmHg ABG O2 Saturation 98.9 H (94-97) % Sodium 155 H (137-145) mmol/L Chloride 131 H* (98-107) mmol/L Carbon Dioxide 20 L (22-30) mmol/L BUN 51 H (9-20) mg/dL Creatinine 1.26 H (0.66-1.25) mg/dL Glucose 219 H (74-99) mg/dL POC Glucose (mg/dL) (70-110) mg/dL Calcium 7.2 L (8.4-10.2) mg/dL Phosphorus (2.5-4.5) mg/dL Creatine Kinase 214 H (55-170) U/L Total Protein 4.2 L (6.3-8.2) g/dL Albumin 2.1 L (3.5-5.0) g/dL Lipase 412 H (23-300) U/L 09/11/23 09/11/23 09/11/23 Range/Units 06:00 06:16 12:21 RBC (4.30-5.90) m/uL Hgb (13.0-17.5) gm/dL Hct (39.0-53.0) % Plt Count (150-450) k/uL Lymphocytes # (1.0-4.8) k/uL ABG pCO2 (35-45) mmHg ABG pO2 (83-108) mmHg ABG O2 Saturation (94-97) % Sodium (137-145) mmol/L Chloride (98-107) mmol/L Carbon Dioxide (22-30) mmol/L BUN (9-20) mg/dL Creatinine (0.66-1.25) mg/dL Glucose (74-99) mg/dL POC Glucose (mg/dL) 220 H 242 H (70-110) mg/dL Calcium (8.4-10.2) mg/dL Phosphorus 1.3 L (2.5-4.5) mg/dL Creatine Kinase (55-170) U/L Total Protein (6.3-8.2) g/dL Albumin (3.5-5.0) g/dL Lipase (23-300) U/L Microbiology - Last 24 Hours (Table) 09/07/23 23:15 Blood Culture - Preliminary Blood 09/08/23 02:40 Gram Stain - Final Sputum Sputum Culture - Final Escherichia coli Staphylococcus aureus Strep agalactiae - (group b) Assessment and Plan Assessment: Acute diabetic ketoacidosis, recovered with closure of the anion gap. Hyperchloremic hypernatremia, currently on free water replacement through the NG. The patient's sodium is elevated at 155. Hypotension and shock, hypovolemic in nature patient was aggressively Treated with IV fluids. The patient's hemodynamics is stable Acute respiratory failure second above-mentioned comorbidities. The patient remains on mechanical ventilator management, patient was intubated for airway protection, reportedly found unresponsive in the field. Intubated by EMS and then triaged at [facility]. Chest x-ray shows patient has some limited atelectatic changes and infiltrates in lung bases. Sputum is positive for E. coli, Streptococcus and MSSA and the patient is currently on IV cefepime. Chest x-ray findings are stable. Fever, currently on IV cefepime and further fever workup will be done including blood cultures. Encephalopathy, rule out anoxic encephalopathy. CAT scan of the brain does not show any not showing any acute abnormalities. EEG showed no evidence of any seizure there is diffuse encephalopathy. The patient not ready for weaning or extubation at this point in time. Neurologically, the patient is doing slow but ongoing progress. More alert. Not following commands consistently. Acute rhabdomyolysis, CPK level were elevated. Awaiting follow-up CPK levels, and the levels were essentially downtrending Acute kidney injury, secondary to combination of above, renal function is improving Elevated troponins, likely supply/demand mismatch History of type 2 diabetes mellitus History of bilateral great toe amputations History of hyperlipidemia History of coronary artery disease with previous PCI/stent History of seizure disorder, no seizure activity noted Encephalopathy secondary to above and the patient is currently off propofol and the mental status being monitored. Plan: Monitor mental status, remains encephalopathic. Remains off propofol. No sedative medications. Ventilator setting has been switched to pressure support mode of mechanical ventilation with a PSV of 7 and a PEEP of 5. Switch this patient to Levemir insulin 30 units along with NovoLog sliding scale coverage Start the patient on D5 water at a rate of 100 cc an hour and adjust insulin dose accordingly. Monitor sodium level The patient on enteral feeding for nutritional support and dietary consultation was obtained and the patient started on Glucerna Monitor electrolytes and replace per protocol Continue free water flushes through the OG Patient is currently off pressors Echocardiogram was noted and the patient has impaired LV function with an ejection fraction of 40 to 45% Continue IV cefepime 2 g every 12 hours, pending further cultures Repeat blood cultures Neurology consultation appreciated Monitor CPK levels improving and downtrending Will keep the patient on mechanical ventilator. Will monitor mental status. Will continue to follow make further recommendations based on his progress. There is a critical care evaluation that was done more than 30 minutes. Time with Patient: Greater than 30
[2023-09-11] MEDS: HYDROmorphone 1 MG/ML 1 ML SYRINGE IVP PRN (13:15)
--- NOTE | 2023-09-11 14:10 | P.PN ---
Subjective Progress Note Date: 09/11/23 HISTORY OF PRESENTING ILLNESS 67-year-old male with past medical history of type 2 diabetes, prior to ampu tations, dyslipidemia, CAD s/p PCI, seizure disorder. Patient is not able to provide any history as he is intubated and is on ventilator support. Patient was transferred from [facility] yesterday. Apparently patient was found unresponsive by patient's partner and last well-known time was 24 hours before. Initial presentation was consistent with DKA and rhabdomyolysis. On admission his labs showed WBC 8.8, hemoglobin 14.5, BUN 134, creatinine 4.29, glucose 91, lactate 1.1. CPK 882, troponin 0.08. BNP 2720. ECG showed normal sinus rhythm with nonspecific interventricular conduction delay. Repeat labs showed CPK increased to 1068. TSH 1.3. 09/09/2023 Patient maintained on ventilator support. He is off pressors. His echocardiogram showed an EF of 40 to 45%, Hemoglobin 12, platelet count 62. On 09/08/2023 patient was noticed to go into atrial fibrillation with RVR. For this he was started on IV amiodarone drip. Currently patient is in sinus rhythm. Good urine output, kidney function is improving, creatinine 1.9 today. 06/28/2023 Patient is seen and examined at bedside this a.m. He continues to be on ventilator support. BP 127/52, heart rate 85, WBC count 7.4, hemoglobin 11.5 Sodium 155, chloride 131, BUN 51, creatinine 1.26. On admission creatinine was 4.2 Patient continues to be on broad-spectrum antibiotic PHYSICAL EXAMINATION Vital signs reviewed. Head: Normocephalic. Eyes: Sclerae nonicteric. Neck: Brisk carotid upstroke, no jugular venous distention. Lungs: Clear to auscultation. Heart: Regular rate and rhythm, S1-S2, no S3, no murmur or rub. Abdomen: Soft nontender, positive bowel sounds. Extremities: No edema, intact distal pulses. Neuro: Alert, oritented, no focal deficits. Detailed neuro exam was not performed. 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 Less likely ACS Thrombocytopenia PAD with prior history of bilateral great toe amputation CAD s/p PCI Nonspecific IVCD on ECG Prior history of seizure disorder Obesity PLAN Continue supportive care for DKA, rhabdomyolysis and respiratory failure management as per ICU team Recommend aspirin 81 mg, Lipitor 40 mg Cannot do Anticoagulation at present due to severe thrombocytopenia, will continue to monitor amiodarone 400 mg BID until 09/15/2023, thereafter reduce dose Patient's mild troponin elevation is most likely due to combination of poor renal clearance, DKA and abnormalities. Consider nephrology recommendations for hypercholeremic hypernatremia Prognosis overall guarded Objective - Vital Signs Vital signs: Vital Signs Temp 100.4 F H 09/11/23 08:00 Pulse 88 09/11/23 13:00 Resp 35 H 09/11/23 13:00 BP 99/63 09/11/23 12:00 Pulse Ox 98 09/11/23 13:00 FiO2 35 09/11/23 13:00 Intake & Output 09/10/23 09/11/23 09/11/23 18:59 06:59 18:59 Intake Total 1430 1284 1168 Output Total 1550 1160 530 Balance -120 124 638 Weight 94.8 kg Intake: IV 472 72 147 0.9 sodium chloride 105 Pressure Bag 72 72 42 Sodium Chloride 0.45% 1, 400 000 ml @ 100 mls/hr IV . Q10H [facility] Rx#:[id number] Intake, IV Titration 100 Amount Cefepime 2 gm In Sodium 100 Chloride 0.9% 100 ml @ 25 mls/hr IVPB Q12HR [facility] Rx #:[id number] Tube Feeding 278 462 371 Other 580 750 650 Output: Urine 1550 1160 530 Other: Voiding Method Indwelling Catheter Indwelling Catheter Indwelling Catheter # Bowel Movements 1 ABP, PAP, CO, CI - Last Documented Arterial Blood Pressure 157/59 - Labs CBC & Chem 7: 09/11/23 04:20 09/11/23 04:20 Labs: Abnormal Lab Results - Last 24 Hours (Table) 09/10/23 09/10/23 09/10/23 Range/Units 18:40 23:21 23:46 RBC (4.30-5.90) m/uL Hgb (13.0-17.5) gm/dL Hct (39.0-53.0) % Plt Count (150-450) k/uL Lymphocytes # (1.0-4.8) k/uL ABG pCO2 (35-45) mmHg ABG pO2 (83-108) mmHg ABG O2 Saturation (94-97) % Sodium (137-145) mmol/L Chloride (98-107) mmol/L Carbon Dioxide (22-30) mmol/L BUN (9-20) mg/dL Creatinine (0.66-1.25) mg/dL Glucose (74-99) mg/dL POC Glucose (mg/dL) 248 H 300 H 243 H (70-110) mg/dL Calcium (8.4-10.2) mg/dL Phosphorus (2.5-4.5) mg/dL Creatine Kinase (55-170) U/L Total Protein (6.3-8.2) g/dL Albumin (3.5-5.0) g/dL Lipase (23-300) U/L 09/11/23 09/11/23 09/11/23 Range/Units 04:20 04:20 05:43 RBC 3.83 L (4.30-5.90) m/uL Hgb 11.5 L (13.0-17.5) gm/dL Hct 35.4 L (39.0-53.0) % Plt Count 59 L (150-450) k/uL Lymphocytes # 0.5 L (1.0-4.8) k/uL ABG pCO2 32 L (35-45) mmHg ABG pO2 109 H (83-108) mmHg ABG O2 Saturation 98.9 H (94-97) % Sodium 155 H (137-145) mmol/L Chloride 131 H* (98-107) mmol/L Carbon Dioxide 20 L (22-30) mmol/L BUN 51 H (9-20) mg/dL Creatinine 1.26 H (0.66-1.25) mg/dL Glucose 219 H (74-99) mg/dL POC Glucose (mg/dL) (70-110) mg/dL Calcium 7.2 L (8.4-10.2) mg/dL Phosphorus (2.5-4.5) mg/dL Creatine Kinase 214 H (55-170) U/L Total Protein 4.2 L (6.3-8.2) g/dL Albumin 2.1 L (3.5-5.0) g/dL Lipase 412 H (23-300) U/L 09/11/23 09/11/23 09/11/23 Range/Units 06:00 06:16 12:21 RBC (4.30-5.90) m/uL Hgb (13.0-17.5) gm/dL Hct (39.0-53.0) % Plt Count (150-450) k/uL Lymphocytes # (1.0-4.8) k/uL ABG pCO2 (35-45) mmHg ABG pO2 (83-108) mmHg ABG O2 Saturation (94-97) % Sodium (137-145) mmol/L Chloride (98-107) mmol/L Carbon Dioxide (22-30) mmol/L BUN (9-20) mg/dL Creatinine (0.66-1.25) mg/dL Glucose (74-99) mg/dL POC Glucose (mg/dL) 220 H 242 H (70-110) mg/dL Calcium (8.4-10.2) mg/dL Phosphorus 1.3 L (2.5-4.5) mg/dL Creatine Kinase (55-170) U/L Total Protein (6.3-8.2) g/dL Albumin (3.5-5.0) g/dL Lipase (23-300) U/L Microbiology - Last 24 Hours (Table) 09/07/23 23:15 Blood Culture - Preliminary Blood
--- NOTE | 2023-09-11 14:39 | P.PN ---
Subjective Progress Note Date: 09/11/23 Romel Malin is a 67-year-old male with past medical history significant for diabetes mellitus, prior toe amputations, hyperlipidemia, coronary artery disease with previous stents, and seizure disorder. He is currently intubated to the mechanical ventilator, unresponsive without any sedation, unable to provide any information. Patient was transferred from [facility] late last night. Apparently, found unresponsive by his girlfriend, and last known well was 24 hours prior. Patient was intubated by EMS on arrival and triaged to [facility]. Initial presentation was consistent with DKA. Subsequently, the patient was transferred to [facility]. Patient is currently in trauma bay 1, he is intubated mechanical ventilator. Chest x-ray on arrival to our facility shows the endotracheal tube in satisfactory position approximately 4 cm above the mahesh. There is an orogastric tube that should be advanced. Right IJ central line catheter appears to terminate at the Cavo atrial junction. No focal infiltrates or evidence of pneumonia. Current ventilator settings are assist-control, respiratory rate 14, tidal volume 500, FiO2 35%, PEEP of 5. He is breathing slightly above set rate. Not on any sedation. Remains unresponsive even to deep painful stimuli. CT of the brain did not show any acute intracranial hemorrhage or mass effect. ABG is consistent with profound metabolic acidosis, with a PaO2 of 204, pCO2 of 25, pH of 7.04. Patient has been given a total of 2 A of bicarb. He is hypotensive and in a shock state, he has been fluid resuscitated with at least 2.5 L crystalloid fluid. No insulin infusion is currently ordered. He remains profoundly hypotensive, and has been started on norepinephrine which is currently infusing at 0.06 mcg/kg/min. CBC: WBC count 8.8, hemoglobin 14.5, hematocrit 50.3, platelets 136. CMP: Sodium 143, potassium 5.2, chloride 115, serum bicarb less than 5, anion gap unmeasurable, BUN 134, creatinine 4.29, gluc ose 910. Lactic 1.1. LFTs not elevated. Total bilirubin 0.7. Ammonia less than 9. CPK was 882. Troponin 0.084. NT BNP 2720. EKG shows normal sinus rhythm and is nondiagnostic for acute ischemia. Urinalysis positive for glucose and ketones. Urine toxicology screen at outside facility was essentially negative. Serum alcohol less than 10. Patient will be admitted to the intensive care unit once bed available. 09/09/2023 Patient grimaces to pain but does not follow commands. He remains off sedatives. Suspect to be hypoxic encephalopathy. Neurolgy was consulted and advises mentation is likely due to metabolic injury. CT scan of the brain yesterday that showed no midline shift or swelling. Patient anion gap has closed with an anion gap of 6, bicarb 17. Potassium at 3.3. Replacement ongoing per protocol. Blood sugars 879. Insulin IV will be discontinued and will transiotion to Insulin detemir SQ. Patient began to show increased breathing on the mechanical ventilator and was switched to pressure control rate of 20, tidal volume of 500, FiO2 of 35%, and a PEEP of 5. ABG showed pH of 7.4 with a pCO2 of 29 and pO2 of 103. WBC is at 5 with a hemoglobin of 12 and a platelet count of 62. Heparin SQ discontinued. Chest x-ray show atelectatic changes in lung base bilaterally. Sputum is showing 09/09 Patient still encephaolpathic but now opens eyes to command, moves arms independently, only grimaces to pain. Patient still intubated and comfortable on current vent settings. Still not on any sedation. Potassium replacement on going as per protocol but on the uptrend latest at 3.5 . Glucose at the 211 and sustaining at levels of 200s. On Glucerna 1.5 rate at 30cc/hr via enteral feeding. Insulin increased to 25 units and on sliding scale coverage. Sputum culture grew gram-negative bacillus and presumptive Staph aureus. started on IV Cefepime. WBC 4.7, hemoglobin 11.4, hematocrit 35 and platelet count 49. Blood pressures increase at 140-160/60-80. Started on IV hydralazine 10mg PRN. Afebrile on assessment. Sodium elevated trend at 152. 0.45% normal saline discontinued and start on free water through OG tube. 11/11. Patient seen and examined. Continues to be intubated at the bedside, all questions answered REVIEW OF SYSTEMS: Review of system cannot be obtained as patient is currently intubated PHYSICAL EXAMINATION: GENERAL: The patient is intubated HEENT: Pupils are round and equally reacting to light. EOMI. No scleral icterus. No conjunctival pallor. Normocephalic, atraumatic. No pharyngeal erythema. No thyromegaly. CARDIOVASCULAR: S1 and S2 present. No murmurs, rubs, or gallops. PULMONARY: Chest is clear to auscultation, no wheezing or crackles. ABDOMEN: Soft, nontender, nondistended, normoactive bowel sounds. No palpable organomegaly. MUSCULOSKELETAL: No joint swelling or deformity. EXTREMITIES: No cyanosis, clubbing, or pedal edema. NEUROLOGICAL: Intubated SKIN: No rashes. Assessment and plan Acute diabetic ketoacidosis, recovered with closure of the anion gap. Severe anion gap metabolic acidosis Hypotension and shock Acute hypoxemic respiratory failure s/p endotracheal intubation. Bacterial pneumonia, sputum positive for E. coli, Streptococcus and MSSA Encephalopathy, rule out anoxic encephalopathy. Acute rhabdomyolysis Acute kidney injury, secondary to combination of above, renal function is improving Elevated troponins caused by increased myocardial damnd istory of type 2 diabetes mellitus History of bilateral great toe amputations History of hyperlipidemia History of coronary artery disease with previous PCI/stent History of seizure disorder, no seizure activity noted Plan: Monitor vital sign Monitor CBC Monitor CMP Continue vent management per ICU Monitor blood sugar levels, continue current insulin regimen Continue IV cefepime 2 g every 12 hours, pending further cultures Critical care following ID consulted Neurology following, EEG done was negative for any seizures, neurology re commended keeping patient on Keppra, continue aspirin Lipitor Labs and medication were reviewed.. Continue same treatment. Continue with symptomatic treatment. Resume home medication. Monitor labs and vitals. DVT and GI prophylaxis. Further recommendations as per clinical course of the patient Dictation was produced using Written dictation software. please excuse any grammatical, word or spelling errors. Objective - Vital Signs Vital signs: Vital Signs Temp 100.4 F H 09/11/23 08:00 Pulse 95 09/11/23 09:07 Resp 20 09/11/23 09:00 BP 99/63 09/11/23 09:00 Pulse Ox 97 09/11/23 09:00 FiO2 35 09/11/23 09:00 Intake & Output 09/10/23 09/11/23 09/11/23 18:59 06:59 18:59 Intake Total 1430 1284 622 Output Total 1550 1160 160 Balance -120 124 462 Weight 94.8 kg Intake: IV 472 72 63 0.9 sodium chloride 45 Pressure Bag 72 72 18 Sodium Chloride 0.45% 1, 400 000 ml @ 100 mls/hr IV . Q10H [facility] Rx#:[id number] Intake, IV Titration 100 Amount Cefepime 2 gm In Sodium 100 Chloride 0.9% 100 ml @ 25 mls/hr IVPB Q12HR [facility] Rx #:[id number] Tube Feeding 278 462 159 Other 580 750 400 Output: Urine 1550 1160 160 Other: Voiding Method Indwelling Catheter Indwelling Catheter Indwelling Catheter # Bowel Movements 1 ABP, PAP, CO, CI - Last Documented Arterial Blood Pressure 90/48 - Labs CBC & Chem 7: 09/11/23 04:20 09/11/23 04:20 Labs: Abnormal Lab Results - Last 24 Hours (Table) 09/10/23 09/10/23 09/10/23 Range/Units 11:36 18:40 23:21 RBC (4.30-5.90) m/uL Hgb (13.0-17.5) gm/dL Hct (39.0-53.0) % Plt Count (150-450) k/uL Lymphocytes # (1.0-4.8) k/uL ABG pCO2 (35-45) mmHg ABG pO2 (83-108) mmHg ABG O2 Saturation (94-97) % Sodium (137-145) mmol/L Chloride (98-107) mmol/L Carbon Dioxide (22-30) mmol/L BUN (9-20) mg/dL Creatinine (0.66-1.25) mg/dL Glucose (74-99) mg/dL POC Glucose (mg/dL) 281 H 248 H 300 H (70-110) mg/dL Calcium (8.4-10.2) mg/dL Phosphorus (2.5-4.5) mg/dL Creatine Kinase (55-170) U/L Total Protein (6.3-8.2) g/dL Albumin (3.5-5.0) g/dL Lipase (23-300) U/L 09/10/23 09/11/23 09/11/23 Range/Units 23:46 04:20 04:20 RBC 3.83 L (4.30-5.90) m/uL Hgb 11.5 L (13.0-17.5) gm/dL Hct 35.4 L (39.0-53.0) % Plt Count 59 L (150-450) k/uL Lymphocytes # 0.5 L (1.0-4.8) k/uL ABG pCO2 (35-45) mmHg ABG pO2 (83-108) mmHg ABG O2 Saturation (94-97) % Sodium 155 H (137-145) mmol/L Chloride 131 H* (98-107) mmol/L Carbon Dioxide 20 L (22-30) mmol/L BUN 51 H (9-20) mg/dL Creatinine 1.26 H (0.66-1.25) mg/dL Glucose 219 H (74-99) mg/dL POC Glucose (mg/dL) 243 H (70-110) mg/dL Calcium 7.2 L (8.4-10.2) mg/dL Phosphorus (2.5-4.5) mg/dL Creatine Kinase 214 H (55-170) U/L Total Protein 4.2 L (6.3-8.2) g/dL Albumin 2.1 L (3.5-5.0) g/dL Lipase 412 H (23-300) U/L 09/11/23 09/11/23 09/11/23 Range/Units 05:43 06:00 06:16 RBC (4.30-5.90) m/uL Hgb (13.0-17.5) gm/dL Hct (39.0-53.0) % Plt Count (150-450) k/uL Lymphocytes # (1.0-4.8) k/uL ABG pCO2 32 L (35-45) mmHg ABG pO2 109 H (83-108) mmHg ABG O2 Saturation 98.9 H (94-97) % Sodium (137-145) mmol/L Chloride (98-107) mmol/L Carbon Dioxide (22-30) mmol/L BUN (9-20) mg/dL Creatinine (0.66-1.25) mg/dL Glucose (74-99) mg/dL POC Glucose (mg/dL) 220 H (70-110) mg/dL Calcium (8.4-10.2) mg/dL Phosphorus 1.3 L (2.5-4.5) mg/dL Creatine Kinase (55-170) U/L Total Protein (6.3-8.2) g/dL Albumin (3.5-5.0) g/dL Lipase (23-300) U/L Microbiology - Last 24 Hours (Table) 09/07/23 23:15 Blood Culture - Preliminary Blood 09/08/23 02:40 Gram Stain - Final Sputum Sputum Culture - Final Escherichia coli Staphylococcus aureus Strep agalactiae - (group b)
--- NOTE | 2023-09-11 15:56 | P.PN ---
Subjective Progress Note Date: 09/11/23 I am following-up with patient and per the nurse he is following few simple commands but continues to be drowsy and continues to be intubated since unable to protect airway. Objective - Vital Signs Vital signs: Vital Signs Temp 99.5 F 09/11/23 12:00 Pulse 93 09/11/23 15:43 Resp 22 09/11/23 15:00 BP 99/63 09/11/23 15:00 Pulse Ox 97 09/11/23 15:00 FiO2 35 09/11/23 15:47 Intake & Output 09/10/23 09/11/23 09/11/23 18:59 06:59 18:59 Intake Total 1430 1284 1316 Output Total 1550 1160 610 Balance -120 124 706 Weight 94.8 kg Intake: IV 472 72 189 0.9 sodium chloride 135 Pressure Bag 72 72 54 Sodium Chloride 0.45% 1, 400 000 ml @ 100 mls/hr IV . Q10H [facility] Rx#:[id number] Intake, IV Titration 100 Amount Cefepime 2 gm In Sodium 100 Chloride 0.9% 100 ml @ 25 mls/hr IVPB Q12HR [facility] Rx #:[id number] Tube Feeding 278 462 477 Other 580 750 650 Output: Urine 1550 1160 610 Other: Voiding Method Indwelling Catheter Indwelling Catheter Indwelling Catheter # Bowel Movements 1 ABP, PAP, CO, CI - Last Documented Arterial Blood Pressure 134/53 - Exam General: Lying in bed and is not in acute distress. Resp: Intubated on ventilator. Neuro: Limited. Patient is drowsy but briefly open eyes to voice and today seems a bit more than yesterday. Is following simple commands (showed thumbs up on the right hand and left). Pupils are round, equal and reactive to light. Has bilateral toes amputated Some of the work-up during this hospital visit consisted of: Patient is afebrile and the white blood cell has been normal Initial presentation to our facility his serum glucose was 910 Initially creatinine is 4.29 calcium is 8.3, phosphorus 8.6 Current phosphorus is 1.8, magnesium is 2.9 TSH is 1.350 clinically ammonia level is less than 9 CK level is 882-->214 Vitamin B12: [address] of the head is reported as no acute intracranial hemorrhage or midline shift. There is mild diffuse age-related cerebral atrophy and mild to moderate probable chronic small vessel ischemic change redemonstrated. No significant change from most recent prior CT. Personally reviewed the CT and I agree there is no acute or subacute ischemia. Echo is reported as technically difficult study. Limited study. Overall left ventricle systolic function moderately impaired. Routine EEG: Is abnormal. The background slowing is suggestive of severe encephalopathy likely due to toxic-metabolic derrangement. Otherwise, there is no focal slowing, epileptiform discharges or seizure on the EEG. - Labs CBC & Chem 7: 09/11/23 04:20 09/11/23 04:20 Labs: Abnormal Lab Results - Last 24 Hours (Table) 09/10/23 09/10/23 09/10/23 Range/Units 18:40 23:21 23:46 RBC (4.30-5.90) m/uL Hgb (13.0-17.5) gm/dL Hct (39.0-53.0) % Plt Count (150-450) k/uL Lymphocytes # (1.0-4.8) k/uL ABG pCO2 (35-45) mmHg ABG pO2 (83-108) mmHg ABG O2 Saturation (94-97) % Sodium (137-145) mmol/L Chloride (98-107) mmol/L Carbon Dioxide (22-30) mmol/L BUN (9-20) mg/dL Creatinine (0.66-1.25) mg/dL Glucose (74-99) mg/dL POC Glucose (mg/dL) 248 H 300 H 243 H (70-110) mg/dL Calcium (8.4-10.2) mg/dL Phosphorus (2.5-4.5) mg/dL Creatine Kinase (55-170) U/L Total Protein (6.3-8.2) g/dL Albumin (3.5-5.0) g/dL Lipase (23-300) U/L 09/11/23 09/11/23 09/11/23 Range/Units 04:20 04:20 05:43 RBC 3.83 L (4.30-5.90) m/uL Hgb 11.5 L (13.0-17.5) gm/dL Hct 35.4 L (39.0-53.0) % Plt Count 59 L (150-450) k/uL Lymphocytes # 0.5 L (1.0-4.8) k/uL ABG pCO2 32 L (35-45) mmHg ABG pO2 109 H (83-108) mmHg ABG O2 Saturation 98.9 H (94-97) % Sodium 155 H (137-145) mmol/L Chloride 131 H* (98-107) mmol/L Carbon Dioxide 20 L (22-30) mmol/L BUN 51 H (9-20) mg/dL Creatinine 1.26 H (0.66-1.25) mg/dL Glucose 219 H (74-99) mg/dL POC Glucose (mg/dL) (70-110) mg/dL Calcium 7.2 L (8.4-10.2) mg/dL Phosphorus (2.5-4.5) mg/dL Creatine Kinase 214 H (55-170) U/L Total Protein 4.2 L (6.3-8.2) g/dL Albumin 2.1 L (3.5-5.0) g/dL Lipase 412 H (23-300) U/L 09/11/23 09/11/23 09/11/23 Range/Units 06:00 06:16 12:21 RBC (4.30-5.90) m/uL Hgb (13.0-17.5) gm/dL Hct (39.0-53.0) % Plt Count (150-450) k/uL Lymphocytes # (1.0-4.8) k/uL ABG pCO2 (35-45) mmHg ABG pO2 (83-108) mmHg ABG O2 Saturation (94-97) % Sodium (137-145) mmol/L Chloride (98-107) mmol/L Carbon Dioxide (22-30) mmol/L BUN (9-20) mg/dL Creatinine (0.66-1.25) mg/dL Glucose (74-99) mg/dL POC Glucose (mg/dL) 220 H 242 H (70-110) mg/dL Calcium (8.4-10.2) mg/dL Phosphorus 1.3 L (2.5-4.5) mg/dL Creatine Kinase (55-170) U/L Total Protein (6.3-8.2) g/dL Albumin (3.5-5.0) g/dL Lipase (23-300) U/L Microbiology - Last 24 Hours (Table) 09/07/23 23:15 Blood Culture - Preliminary Blood Assessment and Plan Assessment: This is a 67-year-old gentleman with history of seizure disorder, diabetes mellitus, amputation of the toes due to his uncontrolled diabetes who was transferred from [place] to our facility on 09/07/2023 for his escalation of care of his acute DKA. Presented to our facility his serum glucose was as high as 900s opiates in the 200s and he continues to have altered mental status even though he is not been on any sedation in our facility. Patient has hypophosphatemia hypermagnesemia, hypernatremia Altered Mental status is due to metabolic encephalopathy due multifactorial (DKA, MARIANO, with electrolyte disturbance) and possible component of hypoxia. Had two CT head which are negative for acute process. 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 Patient is on aspirin 81 mg and Lipitor 40 mg nightly. Will defer the rest of the medical management to primary and other specialists The plan is discussed with ICU team. Time with Patient: Less than 30
--- NOTE | 2023-09-11 16:27 | P.PN ---
Subjective Progress Note Date: 09/11/23 Romel Malin is a 67-year-old male with past medical history significant for diabetes mellitus, prior toe amputations, hyperlipidemia, coronary artery disease with previous stents, and seizure disorder. He is currently intubated to the mechanical ventilator, unresponsive without any sedation, unable to provide any information. Patient was transferred from [facility] late last night. Apparently, found unresponsive by his girlfriend, and last known well was 24 hours prior. Patient was intubated by EMS on arrival and triaged to [facility]. Initial presentation was consistent with DKA. Subsequently, the patient was transferred to [facility]. Patient is currently in trauma bay 1, he is intubated mechanical ventilator. Chest x-ray on arrival to our facility shows the endotracheal tube in satisfactory position approximately 4 cm above the mahesh. There is an orogastric tube that should be advanced. Right IJ central line catheter appears to terminate at the Cavo atrial junction. No focal infiltrates or evidence of pneumonia. Current ventilator settings are assist-control, respiratory rate 14, tidal volume 500, FiO2 35%, PEEP of 5. He is breathing slightly above set rate. Not on any sedation. Remains unresponsive even to deep painful stimuli. CT of the brain did not show any acute intracranial hemorrhage or mass effect. ABG is consistent with profound metabolic acidosis, with a PaO2 of 204, pCO2 of 25, pH of 7.04. Patient has been given a total of 2 A of bicarb. He is hypotensive and in a shock state, he has been fluid resuscitated with at least 2.5 L crystalloid fluid. No insulin infusion is currently ordered. He remains profoundly hypotensive, and has been started on norepinephrine which is currently infusing at 0.06 mcg/kg/min. CBC: WBC count 8.8, hemoglobin 14.5, hematocrit 50.3, platelets 136. CMP: Sodium 143, potassium 5.2, chloride 115, serum bicarb less than 5, anion gap unmeasurable, BUN 134, creatinine 4.29, gluc ose 910. Lactic 1.1. LFTs not elevated. Total bilirubin 0.7. Ammonia less than 9. CPK was 882. Troponin 0.084. NT BNP 2720. EKG shows normal sinus rhythm and is nondiagnostic for acute ischemia. Urinalysis positive for glucose and ketones. Urine toxicology screen at outside facility was essentially negative. Serum alcohol less than 10. Patient will be admitted to the intensive care unit once bed available. 09/09/2023 Patient grimaces to pain but does not follow commands. He remains off sedatives. Suspect to be hypoxic encephalopathy. Neurolgy was consulted and advises mentation is likely due to metabolic injury. CT scan of the brain yesterday that showed no midline shift or swelling. Patient anion gap has closed with an anion gap of 6, bicarb 17. Potassium at 3.3. Replacement ongoing per protocol. Blood sugars 879. Insulin IV will be discontinued and will transiotion to Insulin detemir SQ. Patient began to show increased breathing on the mechanical ventilator and was switched to pressure control rate of 20, tidal volume of 500, FiO2 of 35%, and a PEEP of 5. ABG showed pH of 7.4 with a pCO2 of 29 and pO2 of 103. WBC is at 5 with a hemoglobin of 12 and a platelet count of 62. Heparin SQ discontinued. Chest x-ray show atelectatic changes in lung base bilaterally. Sputum is showing 09/09 Patient still encephaolpathic but now opens eyes to command, moves arms independently, only grimaces to pain. Patient still intubated and comfortable on current vent settings. Still not on any sedation. Potassium replacement on going as per protocol but on the uptrend latest at 3.5 . Glucose at the 211 and sustaining at levels of 200s. On Glucerna 1.5 rate at 30cc/hr via enteral feeding. Insulin increased to 25 units and on sliding scale coverage. Sputum culture grew gram-negative bacillus and presumptive Staph aureus. started on IV Cefepime. WBC 4.7, hemoglobin 11.4, hematocrit 35 and platelet count 49. Blood pressures increase at 140-160/60-80. Started on IV hydralazine 10mg PRN. Afebrile on assessment. Sodium elevated trend at 152. 0.45% normal saline discontinued and start on free water through OG tube. 09/10 Patient became febrile overnight at 100-104F. Given IV tylenol 1g Q6 and will monitor. WBC 7.4 Hgb 11.5 Hct 35.4 platelet count 59. Still on IV Cefepime. Chloride 131 and Sodium 155 still increasing despite free water via OG tube. Patient still encephaolpathic but now opens eyes to command, moves fingers on command. Increases respirations during episodes of pain and increased alertness. Patient still intubated and comfortable on current vent settings. Still not on any sedation. Potassium at normal levels to CPK decreasing to 214. Enteral feeding thoroug Glucerna 1.2 increased rate to 42, goal of 53 per dietitician. Glucose levels decreasing to the 210-220s. Blood pressures decreased to 145/62 and staying at this range. Objective - Vital Signs Vital signs: Vital Signs Temp 100.4 F H 09/11/23 08:00 Pulse 88 09/11/23 13:00 Resp 35 H 09/11/23 13:00 BP 99/63 09/11/23 12:00 Pulse Ox 98 09/11/23 13:00 FiO2 35 09/11/23 13:00 Intake & Output 09/10/23 09/11/23 09/11/23 18:59 06:59 18:59 Intake Total 1430 1284 1168 Output Total 1550 1160 530 Balance -120 124 638 Weight 94.8 kg Intake: IV 472 72 147 0.9 sodium chloride 105 Pressure Bag 72 72 42 Sodium Chloride 0.45% 1, 400 000 ml @ 100 mls/hr IV . Q10H SANTA Rx#:[id number] Intake, IV Titration 100 Amount Cefepime 2 gm In Sodium 100 Chloride 0.9% 100 ml @ 25 mls/hr IVPB Q12HR SANTA Rx #:[id number] Tube Feeding 278 462 371 Other 580 750 650 Output: Urine 1550 1160 530 Other: Voiding Method Indwelling Catheter Indwelling Catheter Indwelling Catheter # Bowel Movements 1 ABP, PAP, CO, CI - Last Documented Arterial Blood Pressure 157/59 - Exam Vitals reviewed over past 24 hours. Oxygen saturation at 97-98%. Heart rate in the low 100s, no recurrent conversions to AFib. Still on endotrachial tube with ventilation set at AC RR 20 Fio2 35 TV 500 PEEP 5. I&O at the 300s with good UO at 4.45 ml/kg. - Constitutional General appearance: Present: no acute distress - EENT Eyes: Present: anicteric sclerae, edentulous, PERRLA, normal appearance ENT: Present: NA/AT Ears: bilateral: unable to vistualize - Neck Details: supple, no masses, no lesions or trauma, ROM cannot be assessed Carotids: bilateral: upstroke normal, bruit absent Thyroid: bilateral: normal size - Respiratory Respiratory: bilateral: CTA, negative: dullness, rales, rhonchi, wheezing, prolonged expiration, prolonged inspiration - Cardiovascular Rhythm: irregularly irregular Heart sounds: normal: S1, S2 Abnormal Heart Sounds: Absent: systolic murmur, diastolic murmur, rub, S3 Gallop, S4 Gallop, click, other - Gastrointestinal General gastrointestinal: Present: normal bowel sounds, soft - Integumentary Integumentary: Present: normal turgor, pale - Neurologic Neurologic Comment(s): grimaces to pain, opens eyes to command, moves fingers to command - Musculoskeletal Musculoskeletal Comment(s): cannot be assessed - Labs CBC & Chem 7: 09/11/23 04:20 09/11/23 04:20 Labs: Abnormal Lab Results - Last 24 Hours (Table) 09/10/23 09/10/23 09/10/23 Range/Units 18:40 23:21 23:46 RBC (4.30-5.90) m/uL Hgb (13.0-17.5) gm/dL Hct (39.0-53.0) % Plt Count (150-450) k/uL Lymphocytes # (1.0-4.8) k/uL ABG pCO2 (35-45) mmHg ABG pO2 (83-108) mmHg ABG O2 Saturation (94-97) % Sodium (137-145) mmol/L Chloride (98-107) mmol/L Carbon Dioxide (22-30) mmol/L BUN (9-20) mg/dL Creatinine (0.66-1.25) mg/dL Glucose (74-99) mg/dL POC Glucose (mg/dL) 248 H 300 H 243 H (70-110) mg/dL Calcium (8.4-10.2) mg/dL Phosphorus (2.5-4.5) mg/dL Creatine Kinase (55-170) U/L Total Protein (6.3-8.2) g/dL Albumin (3.5-5.0) g/dL Lipase (23-300) U/L 09/11/23 09/11/23 09/11/23 Range/Units 04:20 04:20 05:43 RBC 3.83 L (4.30-5.90) m/uL Hgb 11.5 L (13.0-17.5) gm/dL Hct 35.4 L (39.0-53.0) % Plt Count 59 L (150-450) k/uL Lymphocytes # 0.5 L (1.0-4.8) k/uL ABG pCO2 32 L (35-45) mmHg ABG pO2 109 H (83-108) mmHg ABG O2 Saturation 98.9 H (94-97) % Sodium 155 H (137-145) mmol/L Chloride 131 H* (98-107) mmol/L Carbon Dioxide 20 L (22-30) mmol/L BUN 51 H (9-20) mg/dL Creatinine 1.26 H (0.66-1.25) mg/dL Glucose 219 H (74-99) mg/dL POC Glucose (mg/dL) (70-110) mg/dL Calcium 7.2 L (8.4-10.2) mg/dL Phosphorus (2.5-4.5) mg/dL Creatine Kinase 214 H (55-170) U/L Total Protein 4.2 L (6.3-8.2) g/dL Albumin 2.1 L (3.5-5.0) g/dL Lipase 412 H (23-300) U/L 09/11/23 09/11/23 09/11/23 Range/Units 06:00 06:16 12:21 RBC (4.30-5.90) m/uL Hgb (13.0-17.5) gm/dL Hct (39.0-53.0) % Plt Count (150-450) k/uL Lymphocytes # (1.0-4.8) k/uL ABG pCO2 (35-45) mmHg ABG pO2 (83-108) mmHg ABG O2 Saturation (94-97) % Sodium (137-145) mmol/L Chloride (98-107) mmol/L Carbon Dioxide (22-30) mmol/L BUN (9-20) mg/dL Creatinine (0.66-1.25) mg/dL Glucose (74-99) mg/dL POC Glucose (mg/dL) 220 H 242 H (70-110) mg/dL Calcium (8.4-10.2) mg/dL Phosphorus 1.3 L (2.5-4.5) mg/dL Creatine Kinase (55-170) U/L Total Protein (6.3-8.2) g/dL Albumin (3.5-5.0) g/dL Lipase (23-300) U/L Microbiology - Last 24 Hours (Table) 09/07/23 23:15 Blood Culture - Preliminary Blood - Imaging and Cardiology Chest x-ray: report reviewed Assessment and Plan Assessment: Acute diabetic ketoacidosis, recovered with closure of the anion gap Severe anion gap metabolic acidosis, secondary to above, normal lactate, secondary to DKA Hypotension and shock, hypovolemic in nature patient was aggressively treated with IV fluids. The patient is hemodynamically stable and not on pressor support Mechanical ventilaton via endotracheal intubation. Intubated by EMS and then triaged at [facility]. Chest x-ray shows patient has some limited atelectatic changes and infiltrates in lung bases. Sputum culture is positive for E. coli, Streptococcus and MSSA. Placed on IV cefepime. Encephalopathy, rule out anoxic encephalopathy. CT of the brain does not show midline shift or swelling. Hyperchloremic hypernatremia. Patient given Dextrose 5% water 100ml/hr and free water via OG tube Acute rhabdomyolysis, recovering CPK results decreasing at 219 Acute kidney injury, secondary to combination of above, renal function is improving Elevated troponins caused by increased myocardial demand History of type 2 diabetes mellitus History of bilateral great toe amputations History of hyperlipidemia History of coronary artery disease with previous PCI/stent History of seizure disorder, no seizure activity noted Plan: Continue to monitor in ICU Monitor and assess mental status Change mechanical ventilator setting to spontaneous mode pressure control of 15, rate of 20, FiO2 of 35% with a PEEP of 5 pressure support of [address] on Dilaudid IV bolus 1mg Q6 PRN for pain Place on D5%W 100mL/hr IV to correct sodium and chloride Continue free water flushes through the OG tube to correct sodium and chloride Increase insulin detemir to 30 units. Maintain sliding scale coverage per protocol. Watch for hypoglycemia Continue Glucerna diet to goal rate Continue IV tylenol for low-grade fever and monitoring Continue IV hydralzine PRN for elevated blood pressure Continue IV cefepime 2 g every 12 hours, pending further cultures Neurology and Cardiology consultation appreciated Continue to monitor CPK levels Maintain GI prophylaxis. IV protonix Prognisis is guarded. He is full code Time with Patient: Greater than 30
[2023-09-11 19:13] LABS: Glucose,Whole Blood 345 mg/dL (70-110)
[2023-09-11] MEDS: INSULIN DETEMIR (LEVEMIR) 100 UNIT/ML SYR SQ SCH (20:46)
[2023-09-11 23:16] LABS: Glucose,Whole Blood 344 mg/dL (70-110)
[2023-09-12 05:15] LABS: Glucose,Whole Blood 336 mg/dL (70-110)
[2023-09-12 05:26] LABS: Basophils % (A) 0 %; Eosinophils # (A) 0.1 k/uL (0-0.7); Eosinophils % (A) 1 %; HCT 35.1 % (39.0-53.0); HGB 10.7 gm/dL (13.0-17.5); Hypochromasia Slight; Lymphocytes # (A) 0.5 k/uL (1.0-4.8); Lymphocytes % (A) 8 %; MCH 29.6 pg (25.0-35.0); MCHC 30.6 g/dL (31.0-37.0); MCV 96.9 fL (80.0-100.0); Mean Platelet Volume 12.1; Monocytes # (A) 0.3 k/uL (0-1.0); Monocytes % (A) 5 %; Neutrophils # (A) 5.5 k/uL (1.3-7.7); Neutrophils % (A) 84 %; RBC 3.62 m/uL (4.30-5.90); RDW 14.6 % (11.5-15.5); WBC 6.5 k/uL (3.8-10.6)
[2023-09-12 05:28] LABS: Platelet Count 59 k/uL (150-450)
[2023-09-12 05:48] LABS: ALT 20 U/L (4-49); AST 31 U/L (17-59); African American GFR (CKD) 77 (>60 ml/min/1.73 sqM); Alkaline Phosphatase 116 U/L (38-126); Anion Gap 2 mmol/L; Blood Urea Nitrogen 46 mg/dL (9-20); Calcium 7.2 mg/dL (8.4-10.2); Carbon Dioxide 23 mmol/L (22-30); Chloride 126 mmol/L (98-107); Creatine Kinase 81 U/L (55-170); Glucose 352 mg/dL (74-99); Lipase 513 U/L (23-300); Non-African American GFR(CKD) 66 (>60 ml/min/1.73 sqM); Potassium 4.3 mmol/L (3.5-5.1); Sodium 151 mmol/L (137-145); Total Bilirubin 0.5 mg/dL (0.2-1.3); Total Protein 4.1 g/dL (6.3-8.2)
[2023-09-12 06:29] LABS: ABG Base Excess -1.1 mmol/L; ABG HCO3 23 mmol/L (21-25); ABG Oxygen Saturation 98.2 % (94-97); ABG PCO2 37 mmHg (35-45); ABG PH 7.41 (7.35-7.45); ABG PO2 94 mmHg (83-108); ABG TCO2 24 mmol/L (19-24); Allen Test Performed? Yes
--- NOTE | 2023-09-12 06:52 | P.CONS ---
History of Present Illness - Reason for Consult Consult date: 09/11/23 Pneumonia, sepsis Requesting physician: Michael Rodriguez - Chief Complaint Unresponsive on admission - History of Present Illness Patient is a 67-year-old male with a past medical history significant for coronary disease diabetes mellitus GA seizure disorder history of diabetic foot infection status post bilateral big toe amputation presenting to the hospital 4 days ago as a transfer from [facility] apparently patient was found to be unresponsive by his girlfriend and last known well was 24 hours prior the patient went unresponsive patient initially evaluated [facility] subsequently transferred to [facility] on arrival to the facility patient has been intubated and admitted to the ICU patient on presentation to the hospital was hypothermic with a temperature of 89.6 F however the patient has been subsequently spiking fever with a temperature of 103 F this morning prompting this consultation patient remains to be intubated on the vent FiO2 is currently down to 35% patient is hemodynamically stable not requiring any pressor support per the nursing staff and no significant purulent secretions through the ET has been tolerating his tube feeds and no diarrhea has been noticed patient did have a normal white count during this hospital stay he did have elevated BUN and creatinine with a creatinine of 4.29 on admission however that is trending down to down to 1.26 today urine has been negative urine drug screen was not done serum alcohol was less than [address] of the brain no acute intracranial hemorrhage or midline shift chest x-ray on admission lungs clear chest x-ray done this morning no evidence of effusion or focal consolidation patient did have blood cultures has been negative sputum has been positive for E. coli Staph aureus and Streptococcus atelectatic patient is currently on cefepime Review of Systems Positive points has been mentioned in HPI complete review could not be obtained because patient intubated on the vent Past Medical History Past Medical History: Coronary Artery Disease (CAD), Diabetes Mellitus, Myocardial Infarction (GA), Seizure Disorder Last Myocardial Infarction Date:: unknown History of Any Multi-Drug Resistant Organisms: Unobtainable Past Surgical History: Heart Catheterization With Stent Additional Past Surgical History / Comment(s): shyla big toe removal Date of Last Stent Placement:: unknown Past Psychological History: Unable to Obtain Smoking Status: Never smoker Past Alcohol Use History: None Reported Past Drug Use History: None Reported Medications and Allergies Home Medications Medication Instructions Recorded Confirmed Type Ascorbic Acid [Vitamin C] 500 mg PO BID 09/08/23 09/08/23 History Atorvastatin [Lipitor] 40 mg PO HS 09/08/23 09/08/23 History Cetirizine HCl [Zyrtec] 10 mg PO HS 09/08/23 09/08/23 History Cholecalciferol (Vitamin D3) 1,250 mcg PO WEEKLY 09/08/23 09/08/23 History [Vitamin D3 (1250 Mcg = 50,000 Iu)] Escitalopram [Lexapro] 10 mg PO DAILY 09/08/23 09/08/23 History Furosemide [Lasix] 20 mg PO DAILY 09/08/23 09/08/23 History Potassium Chloride [Klor-Con M10] 10 meq PO DAILY 09/08/23 09/08/23 History levETIRAcetam [Keppra] 500 mg PO Q12HR 09/08/23 09/08/23 History tiZANidine [Zanaflex] 4 mg PO TID 09/08/23 09/08/23 History Amiodarone [Cordarone] 400 mg PO BID tab 09/17/23 Rx Apixaban [Eliquis] 5 mg PO BID tab 09/17/23 Rx Aspirin 81 mg PO DAILY tab 09/17/23 Rx Cholestyramine (with Sugar) 4 gm PO BID@1000,1800 packet 09/17/23 Rx [Questran Packet] Dapagliflozin Propanediol [Farxiga] 10 mg PO DAILY tab 09/17/23 Rx HYDROcodone/APAP 5-325MG [[place] 1 each PO Q6H PRN #12 tab 09/17/23 Rx 5-325] INSULIN LISPRO (HumaLOG) [humaLOG] 0 unit SQ ACHS #10 ml 09/17/23 Rx Insulin Detemir (Levemir) [Levemir] 15 unit SQ HS each 09/17/23 Rx Ipratropium-Albuterol Nebulize 3 ml INHALATION RT-QID each 09/17/23 Rx [Duoneb 0.5 mg-3 mg/3 ml Soln] Losartan [Cozaar] 25 mg PO DAILY tab 09/17/23 Rx Metoprolol Tartrate [Lopressor] 25 mg PO BID tab 09/17/23 Rx Nystatin 100,000 Unit/gm Oint 1 applic TOPICAL BID each 09/17/23 Rx [Mycostatin Oint] Allergies Allergy/AdvReac Type Severity Reaction Status Date / Time No Known Allergies Allergy Verified 09/08/23 10:10 Physical Exam Vitals: Vital Signs Temp Pulse Resp BP Pulse Ox FiO2 09/11/23 11:50 80 09/11/23 11:40 80 09/11/23 11:02 35 09/11/23 11:00 91 32 H 99/63 98 35 09/11/23 10:00 93 31 H 99/63 98 09/11/23 09:39 35 09/11/23 09:07 95 09/11/23 09:00 93 20 99/63 97 35 09/11/23 08:57 95 09/11/23 08:00 100.4 F H 104 H 34 H 147/82 98 35 09/11/23 07:47 35 09/11/23 07:00 106 H 33 H 147/82 97 09/11/23 06:00 111 H 33 H 147/82 97 09/11/23 05:00 103.0 F H 108 H 33 H 147/82 97 09/11/23 04:00 100.1 F H 102 H 32 H 147/82 97 35 09/11/23 03:55 103 H 09/11/23 03:46 101 H 09/11/23 03:45 35 09/11/23 03:00 101 H 21 147/82 96 09/11/23 02:00 102 H 20 147/82 97 09/11/23 01:00 98 21 147/82 97 09/11/23 00:43 96 09/11/23 00:35 94 09/11/23 00:34 35 09/11/23 00:00 99.9 F H 88 20 147/82 98 35 09/10/23 23:22 87 20 147/82 98 09/10/23 23:00 87 20 147/82 98 09/10/23 22:00 86 20 147/82 98 09/10/23 21:09 86 09/10/23 21:02 90 09/10/23 21:01 35 09/10/23 21:00 90 20 147/82 98 09/10/23 20:00 100.0 F H 92 20 147/82 98 35 09/10/23 19:00 88 20 147/82 98 09/10/23 18:00 86 22 147/82 97 09/10/23 17:00 92 20 147/82 97 09/10/23 16:44 35 09/10/23 16:20 92 09/10/23 16:02 91 09/10/23 16:00 99.0 F 92 22 147/82 97 35 09/10/23 15:00 90 21 97 09/10/23 14:00 86 20 97 09/10/23 13:22 88 09/10/23 13:14 88 Intake and Output 09/10/23 09/11/23 09/11/23 22:59 06:59 14:59 Intake Total 736 884 770 Output Total 765 750 310 Balance -29 134 460 Intake: IV 48 48 105 0.9 sodium chloride 75 Pressure Bag 48 48 30 Tube Feeding 188 336 265 Other 500 500 400 Output: Urine 765 750 310 Other: Voiding Method Indwelling Catheter Indwelling Catheter Indwelling Catheter # Bowel Movements 1 Weight 94.8 kg ABP, PAP, CO, CI - Last 8 Hours Arterial Blood Pressure 152/58 Arterial Blood Pressure 154/59 Arterial Blood Pressure 90/48 Arterial Blood Pressure 145/39 Arterial Blood Pressure 128/60 Arterial Blood Pressure 155/70 GENERAL DESCRIPTION: Elderly male intubated on the vent HEENT: Shows Pallor , no scleral icterus. Oral mucous membrane is dry. NECK: Trachea central, no thyromegaly. LUNGS: Unlabored breathing. Decreased breath sounds at the base HEART: S1, S2, regular rate and rhythm. No loud murmur ABDOMEN: Soft, no tenderness , guarding or rigidity, no organomegaly EXTREMITIES: No edema of feet. SKIN: No rash, no masses palpable. NEUROLOGICAL: The patient is sedated on the vent Results CBC & Chem 7: 10/02/23 04:45 10/02/23 04:45 Labs: Abnormal Lab Results - Last 24 Hours (Table) 09/10/23 09/10/23 09/10/23 Range/Units 18:40 23:21 23:46 RBC (4.30-5.90) m/uL Hgb (13.0-17.5) gm/dL Hct (39.0-53.0) % Plt Count (150-450) k/uL Lymphocytes # (1.0-4.8) k/uL ABG pCO2 (35-45) mmHg ABG pO2 (83-108) mmHg ABG O2 Saturation (94-97) % Sodium (137-145) mmol/L Chloride (98-107) mmol/L Carbon Dioxide (22-30) mmol/L BUN (9-20) mg/dL Creatinine (0.66-1.25) mg/dL Glucose (74-99) mg/dL POC Glucose (mg/dL) 248 H 300 H 243 H (70-110) mg/dL Calcium (8.4-10.2) mg/dL Phosphorus (2.5-4.5) mg/dL Creatine Kinase (55-170) U/L Total Protein (6.3-8.2) g/dL Albumin (3.5-5.0) g/dL Lipase (23-300) U/L 09/11/23 09/11/23 09/11/23 Range/Units 04:20 04:20 05:43 RBC 3.83 L (4.30-5.90) m/uL Hgb 11.5 L (13.0-17.5) gm/dL Hct 35.4 L (39.0-53.0) % Plt Count 59 L (150-450) k/uL Lymphocytes # 0.5 L (1.0-4.8) k/uL ABG pCO2 32 L (35-45) mmHg ABG pO2 109 H (83-108) mmHg ABG O2 Saturation 98.9 H (94-97) % Sodium 155 H (137-145) mmol/L Chloride 131 H* (98-107) mmol/L Carbon Dioxide 20 L (22-30) mmol/L BUN 51 H (9-20) mg/dL Creatinine 1.26 H (0.66-1.25) mg/dL Glucose 219 H (74-99) mg/dL POC Glucose (mg/dL) (70-110) mg/dL Calcium 7.2 L (8.4-10.2) mg/dL Phosphorus (2.5-4.5) mg/dL Creatine Kinase 214 H (55-170) U/L Total Protein 4.2 L (6.3-8.2) g/dL Albumin 2.1 L (3.5-5.0) g/dL Lipase 412 H (23-300) U/L 09/11/23 09/11/23 09/11/23 Range/Units 06:00 06:16 12:21 RBC (4.30-5.90) m/uL Hgb (13.0-17.5) gm/dL Hct (39.0-53.0) % Plt Count (150-450) k/uL Lymphocytes # (1.0-4.8) k/uL ABG pCO2 (35-45) mmHg ABG pO2 (83-108) mmHg ABG O2 Saturation (94-97) % Sodium (137-145) mmol/L Chloride (98-107) mmol/L Carbon Dioxide (22-30) mmol/L BUN (9-20) mg/dL Creatinine (0.66-1.25) mg/dL Glucose (74-99) mg/dL POC Glucose (mg/dL) 220 H 242 H (70-110) mg/dL Calcium (8.4-10.2) mg/dL Phosphorus 1.3 L (2.5-4.5) mg/dL Creatine Kinase (55-170) U/L Total Protein (6.3-8.2) g/dL Albumin (3.5-5.0) g/dL Lipase (23-300) U/L Microbiology - Last 24 Hours (Table) 09/07/23 23:15 Blood Culture - Preliminary Blood 09/08/23 02:40 Gram Stain - Final Sputum Sputum Culture - Final Escherichia coli Staphylococcus aureus Strep agalactiae - (group b) Assessment and Plan (1) Altered mental status Status: Acute Code(s): R41.82 - ALTERED MENTAL STATUS, UNSPECIFIED SNOMED Code(s): 889045910 (2) Pneumonia Status: Acute Code(s): J18.9 - PNEUMONIA, UNSPECIFIED ORGANISM SNOMED Code(s): 849651035 Plan: 1patient presented to the hospital unresponsive 4 days ago with initial presentation to the outside facility patient was initially hypothermic now with fever patient initial workup including a chest x-ray that has been negative urine has been negative abdominal soft on clinical examination, white count remains to be normal blood culture negative question of viral syndrome versus central source of this fever 2-we will check influenza RSV and COVID testing, if negative patient benefit from LP and CSF examination 3-continue with the cefepime at this point to cover for the pathogen growing in his sputum though there was no evidence of pneumonia on repeated chest x-ray 4-we will also check a CRP and a procalcitonin level We will follow on clinical condition and cultures to further adjust medication if needed Thank you for this consultation we will follow the patient along with you Dictation was produced using [employer] dictation software. please excuse any grammatical, word or spelling errors. Time with Patient: Greater than 30
--- NOTE | 2023-09-12 09:14 | XR ---
EXAMINATION TYPE: XR chest 1V portable DATE OF EXAM: 09/12/2023 Comparison: 09/11/2023 Clinical History: 67-year-old male mechanical ventilation Findings: ET and NG tubes are satisfactory. Right IJ CVC tip at the cavoatrial junction. Heart upper limits of normal in size. Mild patchy density at the right greater than left lower lungs, similar on the left, increased on the right. No sizable pleural effusion. Impression: Similar patchy density medial left base. Increasing patchy atelectasis/infiltrate at the right base.
[2023-09-12] MEDS: INSULIN ASPART (NovoLOG) 100 UNIT/ML VIAL SQ SCH (11:42)
[2023-09-12 11:47] LABS: Glucose,Whole Blood 259 mg/dL (70-110)
--- NOTE | 2023-09-12 12:22 | P.PN ---
Subjective Progress Note Date: 09/12/23 Principal diagnosis: Reason for follow-up is fever Patient is a 67-year-old male with a past medical history significant for coronary disease diabetes mellitus LA seizure disorder history of diabetic foot infection status post bilateral big toe amputation presenting to the hospital with unresponsiveness patient was initially hypothermic subsequently started spiking fever initial workup with a chest x-ray and urine was negative. On today's evaluation that is 09/12/2023 patient did have a low-grade fever 100.1 degrees Fahrenheit this morning, the patient has been extubated and is breathing comfortably on 3 L current oxygen patient denies having any chest pain he did have some cough he denies having any headache did tell me that he knows that he is in the hospital but was not able to give me the name of the hospital no vomiting or diarrhea has been reported and no pressors. Patient white count is 6.5 creatinine is 1.15 Objective - Vital Signs Vital signs: Vital Signs Temp 98.7 F 09/12/23 08:00 Pulse 76 09/12/23 09:13 Resp 20 09/12/23 09:13 BP 145/84 09/12/23 09:00 Pulse Ox 98 09/12/23 09:00 FiO2 35 09/12/23 09:07 Intake & Output 09/11/23 09/12/23 09/12/23 18:59 06:59 18:59 Intake Total 2488 2873 416 Output Total 790 1490 500 Balance 1698 1383 -84 Intake: IV 952 1457 363 0.9 sodium chloride 180 85 20 Cefepime 2 gm In Sodium 100 25 Chloride 0.9% 100 ml @ 25 mls/hr IVPB Q12HR [facility] Rx #:[id number] Dextrose 5% in Water 1, 700 1200 300 000 ml @ 100 mls/hr IV . Q10H [facility] Rx#:[id number] Pressure Bag 72 72 18 Tube Feeding 636 636 53 Other 900 780 Output: Urine 790 1490 500 Other: Voiding Method Indwelling Catheter Indwelling Catheter Indwelling Catheter ABP, PAP, CO, CI - Last Documented Arterial Blood Pressure 134/102 - Exam GENERAL DESCRIPTION: An elderly male lying in bed in no distress RESPIRATORY SYSTEM: Unlabored breathing , decreased breath sounds at bases HEART: S1 S2 regular rate and rhythm , ABDOMEN: Soft , no tenderness EXTREMITIES: No edema feet - Labs CBC & Chem 7: 09/12/23 05:00 09/12/23 05:00 Labs: Abnormal Lab Results - Last 24 Hours (Table) 09/11/23 09/11/23 09/11/23 Range/Units 12:21 19:12 23:15 RBC (4.30-5.90) m/uL Hgb (13.0-17.5) gm/dL Hct (39.0-53.0) % MCHC (31.0-37.0) g/dL Plt Count (150-450) k/uL Lymphocytes # (1.0-4.8) k/uL ABG O2 Saturation (94-97) % Sodium (137-145) mmol/L Chloride (98-107) mmol/L BUN (9-20) mg/dL Glucose (74-99) mg/dL POC Glucose (mg/dL) 242 H 345 H 344 H (70-110) mg/dL Calcium (8.4-10.2) mg/dL Total Protein (6.3-8.2) g/dL Albumin (3.5-5.0) g/dL Lipase (23-300) U/L 09/12/23 09/12/23 09/12/23 Range/Units 05:00 05:00 05:14 RBC 3.62 L (4.30-5.90) m/uL Hgb 10.7 L (13.0-17.5) gm/dL Hct 35.1 L (39.0-53.0) % MCHC 30.6 L (31.0-37.0) g/dL Plt Count 59 L (150-450) k/uL Lymphocytes # 0.5 L (1.0-4.8) k/uL ABG O2 Saturation (94-97) % Sodium 151 H (137-145) mmol/L Chloride 126 H (98-107) mmol/L BUN 46 H (9-20) mg/dL Glucose 352 H (74-99) mg/dL POC Glucose (mg/dL) 336 H (70-110) mg/dL Calcium 7.2 L (8.4-10.2) mg/dL Total Protein 4.1 L (6.3-8.2) g/dL Albumin 2.0 L (3.5-5.0) g/dL Lipase 513 H (23-300) U/L 09/12/23 Range/Units 06:24 RBC (4.30-5.90) m/uL Hgb (13.0-17.5) gm/dL Hct (39.0-53.0) % MCHC (31.0-37.0) g/dL Plt Count (150-450) k/uL Lymphocytes # (1.0-4.8) k/uL ABG O2 Saturation 98.2 H (94-97) % Sodium (137-145) mmol/L Chloride (98-107) mmol/L BUN (9-20) mg/dL Glucose (74-99) mg/dL POC Glucose (mg/dL) (70-110) mg/dL Calcium (8.4-10.2) mg/dL Total Protein (6.3-8.2) g/dL Albumin (3.5-5.0) g/dL Lipase (23-300) U/L Microbiology - Last 24 Hours (Table) 09/07/23 23:15 Blood Culture - Preliminary Blood Assessment and Plan (1) Fever Current Visit: Yes Status: Acute Code(s): R50.9 - FEVER, UNSPECIFIED SNOMED Code(s): 944581501 Plan: 1patient presented to the hospital unresponsive 4 days ago with initial presentation to the outside facility patient was initially hypothermic now with fever patient initial workup including a chest x-ray that has been negative urine has been negative abdominal soft on clinical examination, white count remains to be normal blood culture negative question of viral syndrome versus central source of this fever 2-patient did have a negative influenza RSV and COVID testing, discussed with the neuro as well as grader tender and the patient benefit from LP patient initially refused but after discussion he did agree to undergo LP discussed with the resident physician 3-patient to continue with cefepime and monitor clinical course closely Dictation was produced using Pix[employer] dictation software. please excuse any grammatical, word or spelling errors. Time with Patient: Greater than 30
--- NOTE | 2023-09-12 12:38 | P.PN ---
Subjective Progress Note Date: 09/12/23 I am following-up with patient and he was extubated today. He has muffled voice with secretion post extubation. Dr. Singh recommend Lumbar puncture since patient has elevated fever and unknown source of infection. I spoke with ICU resident and nurse and they stated the patient refused multiple times. Objective - Vital Signs Vital signs: Vital Signs Temp 100.1 F H 09/12/23 12:00 Pulse 82 09/12/23 12:00 Resp 16 09/12/23 12:00 BP 151/79 09/12/23 12:00 Pulse Ox 95 09/12/23 12:00 FiO2 35 09/12/23 09:07 Intake & Output 09/11/23 09/12/23 09/12/23 18:59 06:59 18:59 Intake Total 2488 2873 809 Output Total 790 1490 800 Balance 1698 1383 9 Intake: IV 952 1457 756 0.9 sodium chloride 180 85 20 Cefepime 2 gm In Sodium 100 100 Chloride 0.9% 100 ml @ 25 mls/hr IVPB Q12HR [facility] Rx #:[id number] Dextrose 5% in Water 1, 700 1200 600 000 ml @ 100 mls/hr IV . Q10H [facility] Rx#:[id number] Pressure Bag 72 72 36 Tube Feeding 636 636 53 Other 900 780 Output: Urine 790 1490 800 Other: Voiding Method Indwelling Catheter Indwelling Catheter Indwelling Catheter ABP, PAP, CO, CI - Last Documented Arterial Blood Pressure 133/80 - Exam General: Lying in bed and is not in acute distress. Resp: Sounds coarse and has secretion. Neuro: Limited. Patient is drowsy but is transiently awakeable to voice. He is oriented to self, stated he is in the hospital. After multiple tries he stated the year is 1999 and something. He is following some simple commands and some after multiple tries. He correctly named objects (watch). Pupils are round, equal and reactive to light. No facial weakness from limited. Is able to show thumbs up on both hands. Has bilateral toes amputated Some of the work-up during this hospital visit consisted of: Tmax is past 24 hours are 100.4 Yesterday at 5am temperature of 103.0 wbc has been normal. He has thrombocytopenia TSH is 1.350 clinically ammonia level is less than 9 CK level is 882-->214 Vitamin B12: [address] of the head is reported as no acute intracranial hemorrhage or midline shift. There is mild diffuse age-related cerebral atrophy and mild to moderate probable chronic small vessel ischemic change redemonstrated. No significant change from most recent prior CT. Personally reviewed the CT and I agree there is no acute or subacute ischemia. Echo is reported as technically difficult study. Limited study. Overall left ventricle systolic function moderately impaired. Routine EEG: Is abnormal. The background slowing is suggestive of severe encephalopathy likely due to toxic-metabolic derrangement. Otherwise, there is no focal slowing, epileptiform discharges or seizure on the EEG. Blood culture is E. Coli, staph aureus and Strep agalctiae CXR: Similar patch density medial left base. Increasing patchy atelectasis/infiltrate at right base. - Labs CBC & Chem 7: 09/12/23 05:00 09/12/23 05:00 Labs: Abnormal Lab Results - Last 24 Hours (Table) 09/11/23 09/11/23 09/11/23 Range/Units 12:21 19:12 23:15 RBC (4.30-5.90) m/uL Hgb (13.0-17.5) gm/dL Hct (39.0-53.0) % MCHC (31.0-37.0) g/dL Plt Count (150-450) k/uL Lymphocytes # (1.0-4.8) k/uL ABG O2 Saturation (94-97) % Sodium (137-145) mmol/L Chloride (98-107) mmol/L BUN (9-20) mg/dL Glucose (74-99) mg/dL POC Glucose (mg/dL) 242 H 345 H 344 H (70-110) mg/dL Calcium (8.4-10.2) mg/dL Total Protein (6.3-8.2) g/dL Albumin (3.5-5.0) g/dL Lipase (23-300) U/L 09/12/23 09/12/23 09/12/23 Range/Units 05:00 05:00 05:14 RBC 3.62 L (4.30-5.90) m/uL Hgb 10.7 L (13.0-17.5) gm/dL Hct 35.1 L (39.0-53.0) % MCHC 30.6 L (31.0-37.0) g/dL Plt Count 59 L (150-450) k/uL Lymphocytes # 0.5 L (1.0-4.8) k/uL ABG O2 Saturation (94-97) % Sodium 151 H (137-145) mmol/L Chloride 126 H (98-107) mmol/L BUN 46 H (9-20) mg/dL Glucose 352 H (74-99) mg/dL POC Glucose (mg/dL) 336 H (70-110) mg/dL Calcium 7.2 L (8.4-10.2) mg/dL Total Protein 4.1 L (6.3-8.2) g/dL Albumin 2.0 L (3.5-5.0) g/dL Lipase 513 H (23-300) U/L 09/12/23 09/12/23 Range/Units 06:24 11:45 RBC (4.30-5.90) m/uL Hgb (13.0-17.5) gm/dL Hct (39.0-53.0) % MCHC (31.0-37.0) g/dL Plt Count (150-450) k/uL Lymphocytes # (1.0-4.8) k/uL ABG O2 Saturation 98.2 H (94-97) % Sodium (137-145) mmol/L Chloride (98-107) mmol/L BUN (9-20) mg/dL Glucose (74-99) mg/dL POC Glucose (mg/dL) 259 H (70-110) mg/dL Calcium (8.4-10.2) mg/dL Total Protein (6.3-8.2) g/dL Albumin (3.5-5.0) g/dL Lipase (23-300) U/L Microbiology - Last 24 Hours (Table) 09/07/23 23:15 Blood Culture - Preliminary Blood Assessment and Plan Assessment: This is a 67-year-old gentleman with history of seizure disorder, diabetes mellitus, amputation of the toes due to his uncontrolled diabetes who was transferred from [facility] to our facility on 09/07/2023 for his escalation of care of his acute DKA. Presented to our facility his serum glucose was as high as 900s opiates in the 200s and he continues to have altered mental status even though he is not been on any sedation in our facility. Patient has hypophosphatemia hypermagnesemia, hypernatremia Altered Mental status is due to metabolic encephalopathy due multifactorial (DKA, MARIANO, with electrolyte disturbance), septicemia (E.coli, Staph aureus and strep agalactiae) and probable aspiration pneumonia. Had two CT head which are negative for acute process. EEG is severe encephalopathy but no seizure or discharges appreciated----mentation is slowly improving. Today he was oriented to self, stated he was in hospital and stated the year is 1999 something. Mentation is slowly improving in the last 3 days. Pyrexia likely due to septicemia and probable aspiration pneumonia Respiratory distress and patient was intubated for airway protection--Today was extubated but remains to have a lot of secretion and sounds coarse. 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 Patient is on aspirin 81 mg and Lipitor [address] Singh (I.D.) recommend Lumbar puncture to rule out meningoencephalitis. I doubt it. He consulted Pain management for Lumbar Puncture. Patient is refusing Lumbar Puncture on multiple occasions according to ICU resident and nurse. Will defer the rest of the medical management to primary and other specialists. The plan is discussed with ICU team. Time with Patient: Less than 30
--- NOTE | 2023-09-12 13:27 | P.PN ---
Subjective Progress Note Date: 09/12/23 Romel Malin is a 67-year-old male with past medical history significant for diabetes mellitus, prior toe amputations, hyperlipidemia, coronary artery disease with previous stents, and seizure disorder. He is currently intubated to the mechanical ventilator, unresponsive without any sedation, unable to provide any information. Patient was transferred from [facility] late last night. Apparently, found unresponsive by his girlfriend, and last known well was 24 hours prior. Patient was intubated by EMS on arrival and triaged to [facility]. Initial presentation was consistent with DKA. Subsequently, the patient was transferred to [facility]. Patient is currently in trauma bay 1, he is intubated mechanical ventilator. Chest x-ray on arrival to our facility shows the endotracheal tube in satisfactory position approximately 4 cm above the mahesh. There is an orogastric tube that should be advanced. Right IJ central line catheter appears to terminate at the Cavo atrial junction. No focal infiltrates or evidence of pneumonia. Current ventilator settings are assist-control, respiratory rate 14, tidal volume 500, FiO2 35%, PEEP of 5. He is breathing slightly above set rate. Not on any sedation. Remains unresponsive even to deep painful stimuli. CT of the brain did not show any acute intracranial hemorrhage or mass effect. ABG is consistent with profound metabolic acidosis, with a PaO2 of 204, pCO2 of 25, pH of 7.04. Patient has been given a total of 2 A of bicarb. He is hypotensive and in a shock state, he has been fluid resuscitated with at least 2.5 L crystalloid fluid. No insulin infusion is currently ordered. He remains profoundly hypotensive, and has been started on norepinephrine which is currently infusing at 0.06 mcg/kg/min. CBC: WBC count 8.8, hemoglobin 14.5, hematocrit 50.3, platelets 136. CMP: Sodium 143, potassium 5.2, chloride 115, serum bicarb less than 5, anion gap unmeasurable, BUN 134, creatinine 4.29, gluc ose 910. Lactic 1.1. LFTs not elevated. Total bilirubin 0.7. Ammonia less than 9. CPK was 882. Troponin 0.084. NT BNP 2720. EKG shows normal sinus rhythm and is nondiagnostic for acute ischemia. Urinalysis positive for glucose and ketones. Urine toxicology screen at outside facility was essentially negative. Serum alcohol less than 10. Patient will be admitted to the intensive care unit once bed available. 09/09/2023 Patient grimaces to pain but does not follow commands. He remains off sedatives. Suspect to be hypoxic encephalopathy. Neurolgy was consulted and advises mentation is likely due to metabolic injury. CT scan of the brain yesterday that showed no midline shift or swelling. Patient anion gap has closed with an anion gap of 6, bicarb 17. Potassium at 3.3. Replacement ongoing per protocol. Blood sugars 879. Insulin IV will be discontinued and will transiotion to Insulin detemir SQ. Patient began to show increased breathing on the mechanical ventilator and was switched to pressure control rate of 20, tidal volume of 500, FiO2 of 35%, and a PEEP of 5. ABG showed pH of 7.4 with a pCO2 of 29 and pO2 of 103. WBC is at 5 with a hemoglobin of 12 and a platelet count of 62. Heparin SQ discontinued. Chest x-ray show atelectatic changes in lung base bilaterally. Sputum is showing 09/09 Patient still encephaolpathic but now opens eyes to command, moves arms independently, only grimaces to pain. Patient still intubated and comfortable on current vent settings. Still not on any sedation. Potassium replacement on going as per protocol but on the uptrend latest at 3.5 . Glucose at the 211 and sustaining at levels of 200s. On Glucerna 1.5 rate at 30cc/hr via enteral feeding. Insulin increased to 25 units and on sliding scale coverage. Sputum culture grew gram-negative bacillus and presumptive Staph aureus. started on IV Cefepime. WBC 4.7, hemoglobin 11.4, hematocrit 35 and platelet count 49. Blood pressures increase at 140-160/60-80. Started on IV hydralazine 10mg PRN. Afebrile on assessment. Sodium elevated trend at 152. 0.45% normal saline discontinued and start on free water through OG tube. 11/11. Patient seen and examined. Continues to be intubated at the bedside, all questions answered 11/12. Patient seen and examined. Patient extubated this morning, following commands, currently on oxygen via nasal cannula REVIEW OF SYSTEMS: Denies any chest pain. Denies nausea or vomiting PHYSICAL EXAMINATION: GENERAL: The patient is alert HEENT: Pupils are round and equally reacting to light. EOMI. No scleral icterus. No conjunctival pallor. Normocephalic, atraumatic. No pharyngeal erythema. No thyromegaly. CARDIOVASCULAR: S1 and S2 present. No murmurs, rubs, or gallops. PULMONARY: Chest is clear to auscultation, no wheezing or crackles. ABDOMEN: Soft, nontender, nondistended, normoactive bowel sounds. No palpable organomegaly. MUSCULOSKELETAL: No joint swelling or deformity. EXTREMITIES: No cyanosis, clubbing, or pedal edema. NEUROLOGICAL: Alert, following commands SKIN: No rashes. Assessment and plan Acute diabetic ketoacidosis, recovered with closure of the anion gap. Severe anion gap metabolic acidosis Hypotension and shock Acute hypoxemic respiratory failure s/p endotracheal intubation. Bacterial pneumonia, sputum positive for E. coli, Streptococcus and MSSA Encephalopathy, rule out anoxic encephalopathy. Acute rhabdomyolysis Acute kidney injury, secondary to combination of above, renal function is improving Elevated troponins caused by increased myocardial damnd istory of type 2 diabetes mellitus History of bilateral great toe amputations History of hyperlipidemia History of coronary artery disease with previous PCI/stent History of seizure disorder, no seizure activity noted Plan: Monitor vital sign Monitor CBC Monitor CMP Continue ox supplementation and aggressive bronchopulmonary hygiene Speech consulted Monitor blood sugar levels, continue current insulin regimen Continue IV cefepime 2 g every 12 hours, pending further cultures Continue tube feeding Critical care following ID following Neurology following, EEG done was negative for any seizures, neurology recommended keeping patient on Keppra, continue aspirin Lipitor Labs and medication were reviewed.. Continue same treatment. Continue with symptomatic treatment. Resume home medication. Monitor labs and vitals. DVT and GI prophylaxis. Further recommendations as per clinical course of the patient Dictation was produced using [employer] dictation software. please excuse any grammatical, word or spelling errors. Objective - Vital Signs Vital signs: Vital Signs Temp 98.7 F 09/12/23 08:00 Pulse 76 09/12/23 09:13 Resp 20 09/12/23 09:13 BP 145/84 09/12/23 09:00 Pulse Ox 98 09/12/23 09:00 FiO2 35 09/12/23 09:07 Intake & Output 09/11/23 09/12/23 09/12/23 18:59 06:59 18:59 Intake Total 2488 2873 416 Output Total 790 1490 500 Balance 1698 1383 -84 Intake: IV 952 1457 363 0.9 sodium chloride 180 85 20 Cefepime 2 gm In Sodium 100 25 Chloride 0.9% 100 ml @ 25 mls/hr IVPB Q12HR [facility] Rx #:[id number] Dextrose 5% in Water 1, 700 1200 300 000 ml @ 100 mls/hr IV . Q10H [facility] Rx#:[id number] Pressure Bag 72 72 18 Tube Feeding 636 636 53 Other 900 780 Output: Urine 790 1490 500 Other: Voiding Method Indwelling Catheter Indwelling Catheter Indwelling Catheter ABP, PAP, CO, CI - Last Documented Arterial Blood Pressure 134/102 - Labs CBC & Chem 7: 09/12/23 05:00 09/12/23 05:00 Labs: Abnormal Lab Results - Last 24 Hours (Table) 09/11/23 09/11/23 09/11/23 Range/Units 12:21 19:12 23:15 RBC (4.30-5.90) m/uL Hgb (13.0-17.5) gm/dL Hct (39.0-53.0) % MCHC (31.0-37.0) g/dL Plt Count (150-450) k/uL Lymphocytes # (1.0-4.8) k/uL ABG O2 Saturation (94-97) % Sodium (137-145) mmol/L Chloride (98-107) mmol/L BUN (9-20) mg/dL Glucose (74-99) mg/dL POC Glucose (mg/dL) 242 H 345 H 344 H (70-110) mg/dL Calcium (8.4-10.2) mg/dL Total Protein (6.3-8.2) g/dL Albumin (3.5-5.0) g/dL Lipase (23-300) U/L 09/12/23 09/12/23 09/12/23 Range/Units 05:00 05:00 05:14 RBC 3.62 L (4.30-5.90) m/uL Hgb 10.7 L (13.0-17.5) gm/dL Hct 35.1 L (39.0-53.0) % MCHC 30.6 L (31.0-37.0) g/dL Plt Count 59 L (150-450) k/uL Lymphocytes # 0.5 L (1.0-4.8) k/uL ABG O2 Saturation (94-97) % Sodium 151 H (137-145) mmol/L Chloride 126 H (98-107) mmol/L BUN 46 H (9-20) mg/dL Glucose 352 H (74-99) mg/dL POC Glucose (mg/dL) 336 H (70-110) mg/dL Calcium 7.2 L (8.4-10.2) mg/dL Total Protein 4.1 L (6.3-8.2) g/dL Albumin 2.0 L (3.5-5.0) g/dL Lipase 513 H (23-300) U/L 09/12/23 Range/Units 06:24 RBC (4.30-5.90) m/uL Hgb (13.0-17.5) gm/dL Hct (39.0-53.0) % MCHC (31.0-37.0) g/dL Plt Count (150-450) k/uL Lymphocytes # (1.0-4.8) k/uL ABG O2 Saturation 98.2 H (94-97) % Sodium (137-145) mmol/L Chloride (98-107) mmol/L BUN (9-20) mg/dL Glucose (74-99) mg/dL POC Glucose (mg/dL) (70-110) mg/dL Calcium (8.4-10.2) mg/dL Total Protein (6.3-8.2) g/dL Albumin (3.5-5.0) g/dL Lipase (23-300) U/L Microbiology - Last 24 Hours (Table) 09/07/23 23:15 Blood Culture - Preliminary Blood
--- NOTE | 2023-09-12 13:39 | P.PN ---
Subjective Progress Note Date: 09/12/23 Romel Malin is a 67-year-old male with past medical history significant for diabetes mellitus, prior toe amputations, hyperlipidemia, coronary artery disease with previous stents, and seizure disorder. He is currently intubated to the mechanical ventilator, unresponsive without any sedation, unable to provide any information. Patient was transferred from [facility] late last night. Apparently, found unresponsive by his girlfriend, and last known well was 24 hours prior. Patient was intubated by EMS on arrival and triaged to [facility]. Initial presentation was consistent with DKA. Subsequently, the patient was transferred to [facility]. Patient is currently in trauma bay 1, he is intubated mechanical ventilator. Chest x-ray on arrival to our facility shows the endotracheal tube in satisfactory position approximately 4 cm above the mahesh. There is an orogastric tube that should be advanced. Right IJ central line catheter appears to terminate at the Cavo atrial junction. No focal infiltrates or evidence of pneumonia. Current ventilator settings are assist-control, respiratory rate 14, tidal volume 500, FiO2 35%, PEEP of 5. He is breathing slightly above set rate. Not on any sedation. Remains unresponsive even to deep painful stimuli. CT of the brain did not show any acute intracranial hemorrhage or mass effect. ABG is consistent with profound metabolic acidosis, with a PaO2 of 204, pCO2 of 25, pH of 7.04. Patient has been given a total of 2 A of bicarb. He is hypotensive and in a shock state, he has been fluid resuscitated with at least 2.5 L crystalloid fluid. No insulin infusion is currently ordered. He remains profoundly hypotensive, and has been started on norepinephrine which is currently infusing at 0.06 mcg/kg/min. CBC: WBC count 8.8, hemoglobin 14.5, hematocrit 50.3, platelets 136. CMP: Sodium 143, potassium 5.2, chloride 115, serum bicarb less than 5, anion gap unmeasurable, BUN 134, creatinine 4.29, gluc ose 910. Lactic 1.1. LFTs not elevated. Total bilirubin 0.7. Ammonia less than 9. CPK was 882. Troponin 0.084. NT BNP 2720. EKG shows normal sinus rhythm and is nondiagnostic for acute ischemia. Urinalysis positive for glucose and ketones. Urine toxicology screen at outside facility was essentially negative. Serum alcohol less than 10. Patient will be admitted to the intensive care unit once bed available. 09/09/2023 Patient grimaces to pain but does not follow commands. He remains off sedatives. Suspect to be hypoxic encephalopathy. Neurolgy was consulted and advises mentation is likely due to metabolic injury. CT scan of the brain yesterday that showed no midline shift or swelling. Patient anion gap has closed with an anion gap of 6, bicarb 17. Potassium at 3.3. Replacement ongoing per protocol. Blood sugars 879. Insulin IV will be discontinued and will transiotion to Insulin detemir SQ. Patient began to show increased breathing on the mechanical ventilator and was switched to pressure control rate of 20, tidal volume of 500, FiO2 of 35%, and a PEEP of 5. ABG showed pH of 7.4 with a pCO2 of 29 and pO2 of 103. WBC is at 5 with a hemoglobin of 12 and a platelet count of 62. Heparin SQ discontinued. Chest x-ray show atelectatic changes in lung base bilaterally. Sputum is showing 09/09 Patient still encephaolpathic but now opens eyes to command, moves arms independently, only grimaces to pain. Patient still intubated and comfortable on current vent settings. Still not on any sedation. Potassium replacement on going as per protocol but on the uptrend latest at 3.5 . Glucose at the 211 and sustaining at levels of 200s. On Glucerna 1.5 rate at 30cc/hr via enteral feeding. Insulin increased to 25 units and on sliding scale coverage. Sputum culture grew gram-negative bacillus and presumptive Staph aureus. started on IV Cefepime. WBC 4.7, hemoglobin 11.4, hematocrit 35 and platelet count 49. Blood pressures increase at 140-160/60-80. Started on IV hydralazine 10mg PRN. Afebrile on assessment. Sodium elevated trend at 152. 0.45% normal saline discontinued and start on free water through OG tube. 09/10 Patient became febrile overnight at 100-104F. Given IV tylenol 1g Q6 and will monitor. WBC 7.4 Hgb 11.5 Hct 35.4 platelet count 59. Still on IV Cefepime. Chloride 131 and Sodium 155 still increasing despite free water via OG tube. Patient still encephaolpathic but now opens eyes to command, moves fingers on command. Increases respirations during episodes of pain and increased alertness. Patient still intubated and comfortable on current vent settings. Still not on any sedation. Potassium at normal levels to CPK decreasing to 214. Enteral feeding thoroug Glucerna 1.2 increased rate to 42, goal of 53 per dietitician. Glucose levels decreasing to the 210-220s. Blood pressures decreased to 145/62 and staying at this range. 09/12/23 Patient had no significant events overnight. Given Dilaudid 1mg for pain twice overnight. During assessment, patient is awake and alert and follows commands. Comfortable on the vent Spontaneous mode RR 20 TV 500 FiO2 35 PEEP 5 PS 7. Not on any sedation. Patient still febrile at the low 100s F. CXR show new inflitrates. Still on IV tylenol PRN and would stay at the high 90sF. Still on IV Cefepime 2g. WBC cound 6.5 Hgb 10.7 Hct 35.1 Plt count 59. Sodium 151 and Chloride 43 and are down trending. D5W running at 125ml/hr. Still on enteral feeding Glucerna 1.2 at goal rate of 53. Glucose at 352 and uptrending. CPK at 81. Hemodynamically stable at this time. Spoke with Infectious diease Dr. Singh and is concerned for source of infection and advised lumbar puncture and CSF analysis. Proceeded to obtain consent from patient but he refused multiple times. Objective - Vital Signs Vital signs: Vital Signs Temp 100.1 F H 09/12/23 12:00 Pulse 82 09/12/23 12:00 Resp 16 09/12/23 12:00 BP 151/79 09/12/23 12:00 Pulse Ox 95 09/12/23 12:00 FiO2 35 09/12/23 09:07 Intake & Output 09/11/23 09/12/23 09/12/23 18:59 06:59 18:59 Intake Total 2488 2873 809 Output Total 790 1490 800 Balance 1698 1383 9 Intake: IV 952 1457 756 0.9 sodium chloride 180 85 20 Cefepime 2 gm In Sodium 100 100 Chloride 0.9% 100 ml @ 25 mls/hr IVPB Q12HR [facility] Rx #:[id number] Dextrose 5% in Water 1, 700 1200 600 000 ml @ 100 mls/hr IV . Q10H [facility] Rx#:[id number] Pressure Bag 72 72 36 Tube Feeding 636 636 53 Other 900 780 Output: Urine 790 1490 800 Other: Voiding Method Indwelling Catheter Indwelling Catheter Indwelling Catheter ABP, PAP, CO, CI - Last Documented Arterial Blood Pressure 133/80 - Constitutional Constitutional Comment(s): asleep, appears as age, intubated General appearance: Present: no acute distress - EENT Eyes: Present: anicteric sclerae, PERRLA, dentition normal, normal appearance ENT: Present: hearing grossly normal, NA/AT, normal oropharynx Ears: bilateral: normal - Neck Details: supple, no lesions or trauma Neck: Present: normal ROM Carotids: bilateral: upstroke normal Thyroid: bilateral: normal size - Respiratory Respiratory: bilateral: diminished (lower segments), negative: dullness, rales, rhonchi, wheezing, prolonged expiration, prolonged inspiration - Cardiovascular Heart rate: 98 Rhythm: regular Heart sounds: normal: S1, S2 Abnormal Heart Sounds: Absent: systolic murmur, diastolic murmur, rub, S3 Gallop, S4 Gallop, click, other - Gastrointestinal General gastrointestinal: Present: normal bowel sounds, soft - Integumentary Integumentary: Present: normal, normal turgor, pale - Musculoskeletal Musculoskeletal: Present: generalized weakness - Psychiatric Psychiatric Comment(s): alert and awake, oriented to person and place Psychiatric: Present: appropriate affect - Labs CBC & Chem 7: 09/12/23 05:00 09/12/23 05:00 Labs: Abnormal Lab Results - Last 24 Hours (Table) 09/11/23 09/11/23 09/12/23 Range/Units 19:12 23:15 05:00 RBC 3.62 L (4.30-5.90) m/uL Hgb 10.7 L (13.0-17.5) gm/dL Hct 35.1 L (39.0-53.0) % MCHC 30.6 L (31.0-37.0) g/dL Plt Count 59 L (150-450) k/uL Lymphocytes # 0.5 L (1.0-4.8) k/uL ABG O2 Saturation (94-97) % Sodium (137-145) mmol/L Chloride (98-107) mmol/L BUN (9-20) mg/dL Glucose (74-99) mg/dL POC Glucose (mg/dL) 345 H 344 H (70-110) mg/dL Calcium (8.4-10.2) mg/dL Total Protein (6.3-8.2) g/dL Albumin (3.5-5.0) g/dL Lipase (23-300) U/L 09/12/23 09/12/23 09/12/23 Range/Units 05:00 05:14 06:24 RBC (4.30-5.90) m/uL Hgb (13.0-17.5) gm/dL Hct (39.0-53.0) % MCHC (31.0-37.0) g/dL Plt Count (150-450) k/uL Lymphocytes # (1.0-4.8) k/uL ABG O2 Saturation 98.2 H (94-97) % Sodium 151 H (137-145) mmol/L Chloride 126 H (98-107) mmol/L BUN 46 H (9-20) mg/dL Glucose 352 H (74-99) mg/dL POC Glucose (mg/dL) 336 H (70-110) mg/dL Calcium 7.2 L (8.4-10.2) mg/dL Total Protein 4.1 L (6.3-8.2) g/dL Albumin 2.0 L (3.5-5.0) g/dL Lipase 513 H (23-300) U/L 09/12/23 Range/Units 11:45 RBC (4.30-5.90) m/uL Hgb (13.0-17.5) gm/dL Hct (39.0-53.0) % MCHC (31.0-37.0) g/dL Plt Count (150-450) k/uL Lymphocytes # (1.0-4.8) k/uL ABG O2 Saturation (94-97) % Sodium (137-145) mmol/L Chloride (98-107) mmol/L BUN (9-20) mg/dL Glucose (74-99) mg/dL POC Glucose (mg/dL) 259 H (70-110) mg/dL Calcium (8.4-10.2) mg/dL Total Protein (6.3-8.2) g/dL Albumin (3.5-5.0) g/dL Lipase (23-300) U/L Microbiology - Last 24 Hours (Table) 09/07/23 23:15 Blood Culture - Preliminary Blood - Imaging and Cardiology Chest x-ray: report reviewed Assessment and Plan Assessment: Acute diabetic ketoacidosis, recovered with closure of the anion gap Severe anion gap metabolic acidosis, secondary to above, normal lactate, secondary to DKA Hypotension and shock, hypovolemic in nature patient was aggressively treated with IV fluids. The patient is hemodynamically stable and not on pressor support Mechanical ventilaton via endotracheal intubation. Intubated by EMS and then triaged at [facility]. Chest x-ray shows patient has some limited atelectatic changes and infiltrates in lung bases, now with new inflitrates. Sputum culture is positive for E. coli, Streptococcus and MSSA. Placed on IV cefepime. Encephalopathy, rule out anoxic encephalopathy. CT of the brain does not show midline shift or swelling. Hyperchloremic hypernatremia. Patient given Dextrose 5% water 100ml/hr and free water via OG tube Acute rhabdomyolysis, recovered CPK result normalized 81 Acute kidney injury, secondary to combination of above, renal function is improving BUN 46 Cr 1.15 Elevated troponins caused by increased myocardial demand History of type 2 diabetes mellitus History of bilateral great toe amputations History of hyperlipidemia History of coronary artery disease with previous PCI/stent History of seizure disorder, no seizure activity noted Plan: Continue to monitor in ICU Monitor and assess mental status Extubate today. Monitor for aspiration Discontinue enteral feeding, Glucerna diet at goal rate Continue on Dilaudid IV bolus 1mg Q6 PRN for pain Place on D5%W 125mL/hr IV to correct sodium and chloride Continue free water flushes through the OG tube to correct sodium and chloride Place on Insulin aspart Novolog 10U QID. Maintain sliding scale coverage per protocol. Watch for hypoglycemia Continue IV tylenol for low-grade fever and monitoring Continue IV hydralzine PRN for elevated blood pressure Continue IV cefepime 2 g every 12 hours, pending further cultures Neurology and Cardiology, Infectious Disease consultation appreciated Maintain GI prophylaxis. IV protonix Prognisis is improving. He is full code Time with Patient: Greater than 30
--- NOTE | 2023-09-12 13:54 | P.PN ---
Subjective Progress Note Date: 09/12/23 Patient is a 67-year-old male with past medical history significant for diabetes mellitus, prior toe amputations, hyperlipidemia, coronary artery disease with previous stents, and seizure disorder. He is currently intubated to the mechanical ventilator, unresponsive without any sedation, unable to provide any information. Patient was transferred from [facility] late last night. Apparently, found unresponsive by his girlfriend, and last known well was 24 hours prior. Patient was intubated by EMS on arrival and triaged to [facility]. Initial presentation was consistent with DKA. Subsequently, the patient was transferred to [facility]. Patient is currently in trauma bay 1, he is intubated mechanical ventilator. Chest x-ray on arrival to our facility shows the endotracheal tube in satisfactory position approximately 4 cm above the mahesh. There is an orogastric tube that should be advanced. Right IJ central line catheter appears to terminate at the Cavo atrial junction. No focal infiltrates or evidence of pneumonia. Current ventilator settings are assist-control, respiratory rate 14, tidal volume 500, FiO2 35%, PEEP of 5. He is breathing slightly above set rate. Not on any sedation. Remains unresponsive even to deep painful stimuli. CT of the brain did not show any acute intracranial hemorrhage or mass effect. ABG is consistent with profound metabolic acidosis, with a PaO2 of 204, pCO2 of 25, pH of 7.04. Patient has been given a total of 2 A of bicarb. He is hypotensive and in a shock state, he has been fluid resuscitated with at least 2.5 L crystalloid fluid. No insulin infusion is currently ordered. He remains profoundly hypotensive, and has been started on norepinephrine which is currently infusing at 0.06 mcg/kg/min. CBC: WBC count 8.8, hemoglobin 14.5, hematocrit 50.3, platelets 136. CMP: Sodium 143, potassium 5.2, chloride 115, serum bicarb less than 5, anion gap unmeasurable, BUN 134, creatinine 4.29, glucose 910. Lactic 1.1. LFTs not elevated. Total bilirubin 0.7. Ammonia less than 9. CPK was 882. Troponin 0.084. NT BNP 2720. EKG shows normal sinus rhythm and is nondiagnostic for acute ischemia. Urinalysis positive for glucose and ketones. Urine toxicology screen at outside facility was essentially negative. Serum alcohol less than 10. Patient will be admitted to the intensive care unit once bed available. Today's evaluation of 09/09/2023, the patient is being seen for a follow-up. The patient remains off sedatives. He is grimacing to painful stimulation. He did have a CAT scan of the brain yesterday that showed no acute abnormalities. Suspect a component of hypoxic encephalopathy as the patient apparently was hypoxic when the patient was picked up by the EMS. At this point in time, the patient is grimacing only to deep painful stimulation. Not following any commands yet. The patient has recovered from his anion gap metabolic acidosis related to DKA. The patient is currently on half-normal saline at rate of 100 cc an hour. Most recent blood work shows a gap of 6 with a serum bicarb of 17. Sodium levels at 151. Potassium level at 3.3 which is being replaced. Blood sugars 879. The patient remains on insulin drip and the patient will be transition to long-acting insulin. Remains on the mechanical ventilator assist- control mode at rate of 20, tidal volume of 500, FiO2 of 35% with a PEEP of 5. Blood gas showed a pH of 7.4 with a pCO2 of 29 and pO2 of 103. The patient was tachypneic volume second mechanical ventilation the patient was switched to pressure control. CVP was 2 and after receiving a total of 3 L of fluid and the CVP came up to 8 and the patient has been off pressors since 11:30 PM yesterday. Cardiac rhythm is sinus. The patient is completing albuterol and loading and the patient is currently on 0.5 mg/min. Echocardiogram was done and patient has an ejection fraction of 40 to 45%. The white cell count today is at 5 with a hemoglobin of 12 and a platelet count of 62. Chest x-ray findings are stable. Some atelectatic changes in lung base bilaterally. No antibiotic coverage at this point in time. Sputum is showing gram-negative bacillus and presumptive Staph aureus. 09/10/2023, I am seeing the patient for a follow-up. The patient remains encephalopathic. He grimaces to painful stimulation in all 4 extremities and is withdrawing to pain. Nevertheless, does not follow any commands. His mobility is less in his lower extremities compared to the upper extremities. No seizure activity has been noted. CAT scan of the brain was negative. EEG showed moderate to severe encephalopathy. Suspect hypoxic encephalopathy. Meanwhile, the patient remains intubated on mechanical ventilator. On today's evaluation, he is on no sedation. He is on pressure control mode of mechanical ventilation at rate of 20, pressure control of 15, inspiratory time 0.9 with an FiO2 of 35% and a PEEP of 5. Blood gases from today showed a pH of 7.45 with a pCO2 of 25 and a pO2 of 97. Chest x-ray findings are stable and there is no significant interval change and there is no definite acute process. Based on the positive sputum culture, the patient was started on IV cefepime. Sputum sample was positive for a combination of bacteria including E. coli, Staph aureus/MSSA and Streptococcus. He is afebrile. Hemodynamically stable and he is on no pressors. In fact, he has developed some hypochloremic hyponatremia. He remains on half-normal saline at rate of 100 cc an hour. BUN 64 with a creatinine of 1.46 and a sodium level at 152 and a chloride level is 128. Potassium is at 3.5. WBC count is at 4.7 with a hemoglobin of 1.4 and a platelet count of 49. The patient's blood sugar is at 281. The patient remains on Levemir insulin which is at 15 units and the patient is also on sliding scale coverage. The patient is sitting enteral feeding for nutritional support and the patient is on Glucerna at a rate of 31 cc an hour. On 09/11/2023, the patient is being seen for a follow-up. Opening of his eyes. Not following commands consistently. Remains on mechanical ventilator. Currently is on a pressure control mode with rate of 20, pressure of 50 cm of water, respiratory exam of 0.9, FiO2 35% with a PEEP of 5. Blood gas showed a pH of 7.44 with episodes of 32 and pO2 of 109. Chest x-ray findings are stable. Hemodynamically stable. No pressors. He is on no sedative medications for now. Afebrile. Remains on IV cefepime. White cell count is 7.4, hemoglobin is 11.5 and a platelet count of 59. Sodium is 155, potassium is at 4, chloride is 131, BUN is 51 with a creatinine 1.2. LFTs are stable, CPK is down to 214. The patient is running a low-grade fever. Remains on IV cefepime. Sputum culture was polymicrobial including E. coli, Streptococcus and MSSA. Further blood cultures have been sent. No pressors for now. He is currently on Levemir insulin and sliding scale insulin coverage. The patient is also on Glucerna for enteral feeding and nutritional support she is currently at goal at 54 cc an ho ur. 09/12/2023, I am seeing the patient for a follow-up. The patient is off sedation. The patient is awake and alert and the patient has been on a pressure support mode of mechanical ventilation throughout the night. The patient is currently on a PSV of 7 and a PEEP of 5. The patient is following simple commands. Blood gas from today shows a pH of 7.41 with a pCO2 of 37 and pO2 of 94. Chest x-ray showing a right lower lobe consolidation which could be an area of pneumonia. The patient is currently afebrile. The patient remains on IV cefepime. The tube feeds are currently on hold in anticipation for possible extubation today. Meanwhile, the patient's blood work shows a white cell count of 6.5, hemoglobin 10.7 and a platelet count of 59. Sodium is currently down to 151. BUN is 46 with a creatinine of 1.1. LFTs are normal. Renal function is normal. CPK is down to 81. No other significant events overnight. Hemodynamically stable. Cardiac rhythm is sinus. Objective - Vital Signs Vital signs: Vital Signs Temp 98.7 F 09/12/23 08:00 Pulse 76 09/12/23 09:13 Resp 20 09/12/23 09:13 BP 145/84 09/12/23 09:00 Pulse Ox 98 09/12/23 09:00 FiO2 35 09/12/23 09:07 Intake & Output 09/11/23 09/12/23 09/12/23 18:59 06:59 18:59 Intake Total 2488 2873 416 Output Total 790 1490 500 Balance 1698 1383 -84 Intake: IV 952 1457 363 0.9 sodium chloride 180 85 20 Cefepime 2 gm In Sodium 100 25 Chloride 0.9% 100 ml @ 25 mls/hr IVPB Q12HR [facility] Rx #:[id number] Dextrose 5% in Water 1, 700 1200 300 000 ml @ 100 mls/hr IV . Q10H [facility] Rx#:[id number] Pressure Bag 72 72 18 Tube Feeding 636 636 53 Other 900 780 Output: Urine 790 1490 500 Other: Voiding Method Indwelling Catheter Indwelling Catheter Indwelling Catheter ABP, PAP, CO, CI - Last Documented Arterial Blood Pressure 134/102 - Exam GENERAL EXAM: Following simple commands, awake, currently off sedation., 67-y ear-old male, intubated to mechanical ventilator, . HEAD: Normocephalic and atraumatic EYES: Sluggish reaction of pupils, equal size. NOSE: Clear with pink turbinates. THROAT: No erythema or exudates. Dry mucous membranes. NECK: No masses, no JVD. CHEST: No chest wall deformity. LUNGS: Equal air entry with no crackles, wheeze, rhonchi or dullness. Intubated mechanical ventilator. Peak pressures 17. No significant endotracheal secretions. CVS: S1 and S2 normal with no soft systolic murmur, regular rhythm. No extra heart sounds ABDOMEN: Abdomen flat, active bowel sounds, no hepatosplenomegaly, no guarding or rigidity. Orogastric tube with small amount of brown output. SPINE: No scoliosis or deformity SKIN: No rashes CENTRAL NERVOUS SYSTEM: Level of consciousness improved and the patient is following simple commands while being on the mechanical ventilator. No discernible seizure-like activity. Patellar DTRs 1+ bilaterally. Babinski neutral. EXTREMITIES: There is no peripheral edema, clubbing, or cyanosis. Peripheral pulses are intact. Remote appearing bilateral great toe amputations. - Labs CBC & Chem 7: 09/12/23 05:00 09/12/23 05:00 Labs: Abnormal Lab Results - Last 24 Hours (Table) 09/11/23 09/11/23 09/11/23 Range/Units 12:21 19:12 23:15 RBC (4.30-5.90) m/uL Hgb (13.0-17.5) gm/dL Hct (39.0-53.0) % MCHC (31.0-37.0) g/dL Plt Count (150-450) k/uL Lymphocytes # (1.0-4.8) k/uL ABG O2 Saturation (94-97) % Sodium (137-145) mmol/L Chloride (98-107) mmol/L BUN (9-20) mg/dL Glucose (74-99) mg/dL POC Glucose (mg/dL) 242 H 345 H 344 H (70-110) mg/dL Calcium (8.4-10.2) mg/dL Total Protein (6.3-8.2) g/dL Albumin (3.5-5.0) g/dL Lipase (23-300) U/L 09/12/23 09/12/23 09/12/23 Range/Units 05:00 05:00 05:14 RBC 3.62 L (4.30-5.90) m/uL Hgb 10.7 L (13.0-17.5) gm/dL Hct 35.1 L (39.0-53.0) % MCHC 30.6 L (31.0-37.0) g/dL Plt Count 59 L (150-450) k/uL Lymphocytes # 0.5 L (1.0-4.8) k/uL ABG O2 Saturation (94-97) % Sodium 151 H (137-145) mmol/L Chloride 126 H (98-107) mmol/L BUN 46 H (9-20) mg/dL Glucose 352 H (74-99) mg/dL POC Glucose (mg/dL) 336 H (70-110) mg/dL Calcium 7.2 L (8.4-10.2) mg/dL Total Protein 4.1 L (6.3-8.2) g/dL Albumin 2.0 L (3.5-5.0) g/dL Lipase 513 H (23-300) U/L 09/12/23 Range/Units 06:24 RBC (4.30-5.90) m/uL Hgb (13.0-17.5) gm/dL Hct (39.0-53.0) % MCHC (31.0-37.0) g/dL Plt Count (150-450) k/uL Lymphocytes # (1.0-4.8) k/uL ABG O2 Saturation 98.2 H (94-97) % Sodium (137-145) mmol/L Chloride (98-107) mmol/L BUN (9-20) mg/dL Glucose (74-99) mg/dL POC Glucose (mg/dL) (70-110) mg/dL Calcium (8.4-10.2) mg/dL Total Protein (6.3-8.2) g/dL Albumin (3.5-5.0) g/dL Lipase (23-300) U/L Microbiology - Last 24 Hours (Table) 09/07/23 23:15 Blood Culture - Preliminary Blood Assessment and Plan Assessment: Acute diabetic ketoacidosis, recovered with closure of the anion gap, recovered Hyperchloremic hypernatremia, currently on free water replacement through the NG. The patient's sodium is improving and currently is down to 151. Hypotension and shock, hypovolemic in nature patient was aggressively Treated with IV fluids. The patient's hemodynamics is stable Acute respiratory failure second above-mentioned comorbidities. The patient remains on mechanical ventilator management, patient was intubated for airway protection, reportedly found unresponsive in the field. Intubated by EMS and then triaged at [facility]. Chest x-ray shows patient has some l imited atelectatic changes and infiltrates in lung bases. Sputum is positive for E. coli, Streptococcus and MSSA and the patient is currently on IV cefepime. Chest x-ray findings are stable. Fever, currently on IV cefepime and patient has developed a right lower lobe pulm infiltrate. Currently afebrile. Encephalopathy, rule out anoxic encephalopathy. CAT scan of the brain does not show any not showing any acute abnormalities. EEG showed no evidence of any seizure there is diffuse encephalopathy. Neurologically, the patient is doing slow but ongoing progress. More alert. Following simple commands on today's evaluation the patient is currently off sedation. Acute rhabdomyolysis, CPK level were elevated. Awaiting follow-up CPK levels, and the levels were essentially downtrending Acute kidney injury, secondary to combination of above, renal function is improving Elevated troponins, likely supply/demand mismatch History of type 2 diabetes mellitus History of bilateral great toe amputations History of hyperlipidemia History of coronary artery disease with previous PCI/stent History of seizure disorder, no seizure activity noted Encephalopathy secondary to above and the patient is currently off propofol and the mental status being monitored. Plan: The patient is currently on a PSV of 7 and a PEEP of 5. Awake and alert and following simple commands while being on the mechanical ventilator. Will going to extubate the patient to nasal cannula. Continue Levemir insulin 30 units along with NovoLog 10 units 4 times a day and a sliding scale coverage Continue D5 water at a rate of 100 cc an hour and adjust insulin dose accordingly. Monitor sodium level, levels are improving Tube feeds on hold Monitor electrolytes and replace per protocol Patient is currently off pressors Echocardiogram was noted and the patient has impaired LV function with an ejection fraction of 40 to 45% Continue IV cefepime 2 g every 12 hours, pending further cultures Currently afebrile Neurology consultation appreciated Monitor CPK levels improving and downtrending Will extubate the patient and monitor the patient clinically here in the ICU. There is a critical care evaluation that was done more than 30 minutes. Time with Patient: Greater than 30
[2023-09-12] MEDS: FUROSEMIDE 10 MG/ML 4 ML VIAL IV STA (14:23)
[2023-09-12] MEDS: IPRATROPIUM-ALBUTEROL 3 ML NEB INHALATION SCH (14:57)
[2023-09-12] MEDS: CEFEPIME 2 GM in SODIUM CHLORIDE 0.9% 100 ML IVPB SCH (16:07)
[2023-09-12] MEDS: ZINC OXIDE PASTE (Z-GUARD) 1 APPLIC TOPICAL PRN (18:08)
[2023-09-12 18:12] LABS: Glucose,Whole Blood 189 mg/dL (70-110)
[2023-09-12 21:25] LABS: Glucose,Whole Blood 149 mg/dL (70-110)
[2023-09-12] MEDS: levETIRAcetam IV 500 MG/5 ML VIAL IVP SCH (21:58)
--- NOTE | 2023-09-12 23:18 | P.PN ---
Subjective Progress Note Date: 09/12/23 HISTORY OF PRESENTING ILLNESS 67-year-old male with past medical history of type 2 diabetes, prior to ampu tations, dyslipidemia, CAD s/p PCI, seizure disorder. Patient is not able to provide any history as he is intubated and is on ventilator support. Patient was transferred from [facility] yesterday. Apparently patient was found unresponsive by patient's partner and last well-known time was 24 hours before. Initial presentation was consistent with DKA and rhabdomyolysis. On admission his labs showed WBC 8.8, hemoglobin 14.5, BUN 134, creatinine 4.29, glucose 91, lactate 1.1. CPK 882, troponin 0.08. BNP 2720. ECG showed normal sinus rhythm with nonspecific interventricular conduction delay. Repeat labs showed CPK increased to 1068. TSH 1.3. 09/09/2023 Patient maintained on ventilator support. He is off pressors. His echocardiogram showed an EF of 40 to 45%, Hemoglobin 12, platelet count 62. On 09/08/2023 patient was noticed to go into atrial fibrillation with RVR. For this he was started on IV amiodarone drip. Currently patient is in sinus rhythm. Good urine output, kidney function is improving, creatinine 1.9 today. 06/28/2023 Patient is seen and examined at bedside this a.m. He continues to be on ventilator support. BP 127/52, heart rate 85, WBC count 7.4, hemoglobin 11.5 Sodium 155, chloride 131, BUN 51, creatinine 1.26. On admission creatinine was 4.2 Patient continues to be on broad-spectrum antibiotic 09/12/2023 Patient was extubated today. BP 143/81, heart rate 87 bpm, continues to be in sinus rhythm. Hemoglobin 10.7, creatinine 1.25, sodium 151, chloride 126. Chest x-ray shows mild congestion in bilateral lower lung thomas. Platelets at 59 PHYSICAL EXAMINATION Vital signs reviewed. Head: Normocephalic. Eyes: Sclerae nonicteric. Neck: Brisk carotid upstroke, no jugular venous distention. Lungs: Clear to auscultation. Heart: Regular rate and rhythm, S1-S2, no S3, no murmur or rub. Abdomen: Soft nontender, positive bowel sounds. Extremities: No edema, intact distal pulses. Neuro: Alert, oritented, no focal deficits. Detailed neuro exam was not performed. 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 Less likely ACS Thrombocytopenia PAD with prior history of bilateral great toe amputation CAD s/p PCI Nonspecific IVCD on ECG Prior history of seizure disorder Obesity PLAN Continue supportive care for DKA, rhabdomyolysis and respiratory failure management as per ICU team Recommend aspirin 81 mg, Lipitor 40 mg Cannot do Anticoagulation at present due to severe thrombocytopenia, will continue to monitor. Would recommend VTE prophylaxis amiodarone 400 mg BID until 09/15/2023, thereafter reduce dose Patient's mild troponin elevation is most likely due to combination of poor renal clearance, DKA and abnormalities. Consider Ischemic evaluation on outpatient basis. Objective - Vital Signs Vital signs: Vital Signs Temp 98.4 F 09/12/23 20:00 Pulse 87 09/12/23 22:00 Resp 21 09/12/23 22:00 BP 143/81 09/12/23 22:00 Pulse Ox 93 L 09/12/23 22:00 FiO2 35 09/12/23 09:07 Intake & Output 09/12/23 09/12/23 09/13/23 06:59 18:59 06:59 Intake Total 2873 1629 437 Output Total 1490 2080 450 Balance 1383 -451 -13 Weight 94.8 kg Intake: IV 1457 1576 437 0.9 sodium chloride 85 60 0 ACETAMINOPHEN IV (For NPO 100 ) 1,000 mg In Empty Bag 1 bag @ 400 mls/hr IVPB Q6HR PRN Rx#:[id number] Cefepime 2 gm In Sodium 100 100 Chloride 0.9% 100 ml @ 25 mls/hr IVPB Q12HR [facility] Rx #:[id number] Cefepime 2 gm In Sodium 50 25 Chloride 0.9% 100 ml @ 25 mls/hr IVPB Q8HR [facility] Rx# :[id number] Dextrose 5% in Water 1, 1200 1200 400 000 ml @ 100 mls/hr IV . Q10H [facility] Rx#:[id number] Pressure Bag 72 66 12 Tube Feeding 636 53 Other 780 Output: Urine 1490 2080 450 Other: Voiding Method Indwelling Catheter Indwelling Catheter Indwelling Catheter ABP, PAP, CO, CI - Last Documented Arterial Blood Pressure 121/60 - Labs CBC & Chem 7: 09/12/23 05:00 09/12/23 05:00 Labs: Abnormal Lab Results - Last 24 Hours (Table) 09/11/23 09/12/23 09/12/23 Range/Units 23:15 05:00 05:00 RBC 3.62 L (4.30-5.90) m/uL Hgb 10.7 L (13.0-17.5) gm/dL Hct 35.1 L (39.0-53.0) % MCHC 30.6 L (31.0-37.0) g/dL Plt Count 59 L (150-450) k/uL Lymphocytes # 0.5 L (1.0-4.8) k/uL ABG O2 Saturation (94-97) % Sodium 151 H (137-145) mmol/L Chloride 126 H (98-107) mmol/L BUN 46 H (9-20) mg/dL Glucose 352 H (74-99) mg/dL POC Glucose (mg/dL) 344 H (70-110) mg/dL Calcium 7.2 L (8.4-10.2) mg/dL C-Reactive Protein (<1.0) mg/dL Total Protein 4.1 L (6.3-8.2) g/dL Albumin 2.0 L (3.5-5.0) g/dL Lipase 513 H (23-300) U/L Procalcitonin (0.02-0.09) ng/mL 09/12/23 09/12/23 09/12/23 Range/Units 05:00 05:00 05:14 RBC (4.30-5.90) m/uL Hgb (13.0-17.5) gm/dL Hct (39.0-53.0) % MCHC (31.0-37.0) g/dL Plt Count (150-450) k/uL Lymphocytes # (1.0-4.8) k/uL ABG O2 Saturation (94-97) % Sodium (137-145) mmol/L Chloride (98-107) mmol/L BUN (9-20) mg/dL Glucose (74-99) mg/dL POC Glucose (mg/dL) 336 H (70-110) mg/dL Calcium (8.4-10.2) mg/dL C-Reactive Protein 24.1 H (<1.0) mg/dL Total Protein (6.3-8.2) g/dL Albumin (3.5-5.0) g/dL Lipase (23-300) U/L Procalcitonin 1.31 H (0.02-0.09) ng/mL 09/12/23 09/12/23 09/12/23 Range/Units 06:24 11:45 18:10 RBC (4.30-5.90) m/uL Hgb (13.0-17.5) gm/dL Hct (39.0-53.0) % MCHC (31.0-37.0) g/dL Plt Count (150-450) k/uL Lymphocytes # (1.0-4.8) k/uL ABG O2 Saturation 98.2 H (94-97) % Sodium (137-145) mmol/L Chloride (98-107) mmol/L BUN (9-20) mg/dL Glucose (74-99) mg/dL POC Glucose (mg/dL) 259 H 189 H (70-110) mg/dL Calcium (8.4-10.2) mg/dL C-Reactive Protein (<1.0) mg/dL Total Protein (6.3-8.2) g/dL Albumin (3.5-5.0) g/dL Lipase (23-300) U/L Procalcitonin (0.02-0.09) ng/mL 09/12/23 Range/Units 21:23 RBC (4.30-5.90) m/uL Hgb (13.0-17.5) gm/dL Hct (39.0-53.0) % MCHC (31.0-37.0) g/dL Plt Count (150-450) k/uL Lymphocytes # (1.0-4.8) k/uL ABG O2 Saturation (94-97) % Sodium (137-145) mmol/L Chloride (98-107) mmol/L BUN (9-20) mg/dL Glucose (74-99) mg/dL POC Glucose (mg/dL) 149 H (70-110) mg/dL Calcium (8.4-10.2) mg/dL C-Reactive Protein (<1.0) mg/dL Total Protein (6.3-8.2) g/dL Albumin (3.5-5.0) g/dL Lipase (23-300) U/L Procalcitonin (0.02-0.09) ng/mL Microbiology - Last 24 Hours (Table) 09/11/23 10:16 Blood Culture - Preliminary Blood
[2023-09-12 23:34] LABS: Glucose,Whole Blood 178 mg/dL (70-110)
[2023-09-13 03:20] LABS: Basophils % (A) 0 %; Eosinophils # (A) 0.1 k/uL (0-0.7); Eosinophils % (A) 1 %; HCT 35.3 % (39.0-53.0); HGB 10.8 gm/dL (13.0-17.5); Hypochromasia Slight; Lymphocytes # (A) 0.6 k/uL (1.0-4.8); Lymphocytes % (A) 7 %; MCH 29.3 pg (25.0-35.0); MCHC 30.5 g/dL (31.0-37.0); Mean Platelet Volume 11.5; Monocytes # (A) 0.5 k/uL (0-1.0); Monocytes % (A) 7 %; Neutrophils # (A) 6.2 k/uL (1.3-7.7); Neutrophils % (A) 82 %; RBC 3.68 m/uL (4.30-5.90); RDW 14.6 % (11.5-15.5); WBC 7.6 k/uL (3.8-10.6)
[2023-09-13 03:37] LABS: Platelet Count 90 k/uL (150-450)
[2023-09-13 04:26] LABS: African American GFR (CKD) 85 (>60 ml/min/1.73 sqM); Anion Gap 7 mmol/L; Blood Urea Nitrogen 36 mg/dL (9-20); Calcium 7.3 mg/dL (8.4-10.2); Carbon Dioxide 21 mmol/L (22-30); Chloride 121 mmol/L (98-107); Glucose 201 mg/dL (74-99); Non-African American GFR(CKD) 73 (>60 ml/min/1.73 sqM); Potassium 3.6 mmol/L (3.5-5.1); Sodium 149 mmol/L (137-145)
[2023-09-13] MEDS ORDERED: Potassium Replacement Protocol 1 EACH MISC MISCELLANE PRN (04:47)
[2023-09-13] MEDS ORDERED: POTASSIUM CHLORIDE 10 MEQ in WATER FOR INJECTION 1 100ML.BAG IVPB SCH (05:00)
[2023-09-13] MEDS: POTASSIUM CHLORIDE 20 MEQ in WATER FOR INJECTION 1 100ML.BAG IVPB ONE (05:57)
[2023-09-13 06:10] LABS: Glucose,Whole Blood 190 mg/dL (70-110)
--- NOTE | 2023-09-13 10:03 | XR ---
EXAMINATION TYPE: XR chest 1V DATE OF EXAM: 09/13/2023 4:59 AM CLINICAL INDICATION:Male, 67 years old with history of Assess lung status/post extubation; [facility] COMPARISON: 09/12/2023 TECHNIQUE: XR chest 1V Portable AP radiograph of the chest.. FINDINGS: Lines/Tubes/Devices: Interval removal of the ET and NG tubes. There is a stable right IJ central venous line with tip at t he cavoatrial junction. Heart/mediastinum: Heart size is stable, upper normal. Mediastinum is unchanged. Pulmonary vascularity: Not increased, Lungs/Pleura: Similar appearance of patchy opacities at the right greater than left lung base. No siz able pleural effusion or evidence of pneumothorax. Musculoskeletal: No acute osseous abnormality demonstrated in the limits of the exam. Other findings: None. IMPRESSION: 1. Interval extubation and removal of NG tube. 2. Similar lung findings with patchy opacities redemonstrated in the lung bases.
--- NOTE | 2023-09-13 11:04 | P.PN ---
Subjective Progress Note Date: 09/13/23 Romel Malin is a 67-year-old male with past medical history significant for diabetes mellitus, prior toe amputations, hyperlipidemia, coronary artery disease with previous stents, and seizure disorder. He is currently intubated to the mechanical ventilator, unresponsive without any sedation, unable to provide any information. Patient was transferred from [facility] late last night. Apparently, found unresponsive by his girlfriend, and last known well was 24 hours prior. Patient was intubated by EMS on arrival and triaged to [facility]. Initial presentation was consistent with DKA. Subsequently, the patient was transferred to [facility]. Patient is currently in trauma bay 1, he is intubated mechanical ventilator. Chest x-ray on arrival to our facility shows the endotracheal tube in satisfactory position approximately 4 cm above the mahesh. There is an orogastric tube that should be advanced. Right IJ central line catheter appears to terminate at the Cavo atrial junction. No focal infiltrates or evidence of pneumonia. Current ventilator settings are assist-control, respiratory rate 14, tidal volume 500, FiO2 35%, PEEP of 5. He is breathing slightly above set rate. Not on any sedation. Remains unresponsive even to deep painful stimuli. CT of the brain did not show any acute intracranial hemorrhage or mass effect. ABG is consistent with profound metabolic acidosis, with a PaO2 of 204, pCO2 of 25, pH of 7.04. Patient has been given a total of 2 A of bicarb. He is hypotensive and in a shock state, he has been fluid resuscitated with at least 2.5 L crystalloid fluid. No insulin infusion is currently ordered. He remains profoundly hypotensive, and has been started on norepinephrine which is currently infusing at 0.06 mcg/kg/min. CBC: WBC count 8.8, hemoglobin 14.5, hematocrit 50.3, platelets 136. CMP: Sodium 143, potassium 5.2, chloride 115, serum bicarb less than 5, anion gap unmeasurable, BUN 134, creatinine 4.29, gluc ose 910. Lactic 1.1. LFTs not elevated. Total bilirubin 0.7. Ammonia less than 9. CPK was 882. Troponin 0.084. NT BNP 2720. EKG shows normal sinus rhythm and is nondiagnostic for acute ischemia. Urinalysis positive for glucose and ketones. Urine toxicology screen at outside facility was essentially negative. Serum alcohol less than 10. Patient will be admitted to the intensive care unit once bed available. 09/09/2023 Patient grimaces to pain but does not follow commands. He remains off sedatives. Suspect to be hypoxic encephalopathy. Neurolgy was consulted and advises mentation is likely due to metabolic injury. CT scan of the brain yesterday that showed no midline shift or swelling. Patient anion gap has closed with an anion gap of 6, bicarb 17. Potassium at 3.3. Replacement ongoing per protocol. Blood sugars 879. Insulin IV will be discontinued and will transiotion to Insulin detemir SQ. Patient began to show increased breathing on the mechanical ventilator and was switched to pressure control rate of 20, tidal volume of 500, FiO2 of 35%, and a PEEP of 5. ABG showed pH of 7.4 with a pCO2 of 29 and pO2 of 103. WBC is at 5 with a hemoglobin of 12 and a platelet count of 62. Heparin SQ discontinued. Chest x-ray show atelectatic changes in lung base bilaterally. Sputum is showing 09/09 Patient still encephaolpathic but now opens eyes to command, moves arms independently, only grimaces to pain. Patient still intubated and comfortable on current vent settings. Still not on any sedation. Potassium replacement on going as per protocol but on the uptrend latest at 3.5 . Glucose at the 211 and sustaining at levels of 200s. On Glucerna 1.5 rate at 30cc/hr via enteral feeding. Insulin increased to 25 units and on sliding scale coverage. Sputum culture grew gram-negative bacillus and presumptive Staph aureus. started on IV Cefepime. WBC 4.7, hemoglobin 11.4, hematocrit 35 and platelet count 49. Blood pressures increase at 140-160/60-80. Started on IV hydralazine 10mg PRN. Afebrile on assessment. Sodium elevated trend at 152. 0.45% normal saline discontinued and start on free water through OG tube. 09/10 Patient became febrile overnight at 100-104F. Given IV tylenol 1g Q6 and will monitor. WBC 7.4 Hgb 11.5 Hct 35.4 platelet count 59. Still on IV Cefepime. Chloride 131 and Sodium 155 still increasing despite free water via OG tube. Patient still encephaolpathic but now opens eyes to command, moves fingers on command. Increases respirations during episodes of pain and increased alertness. Patient still intubated and comfortable on current vent settings. Still not on any sedation. Potassium at normal levels to CPK decreasing to 214. Enteral feeding thoroug Glucerna 1.2 increased rate to 42, goal of 53 per dietitician. Glucose levels decreasing to the 210-220s. Blood pressures decreased to 145/62 and staying at this range. 09/12/23 Patient had no significant events overnight. Given Dilaudid 1mg for pain twice overnight. During assessment, patient is awake and alert and follows commands. Comfortable on the vent Spontaneous mode RR 20 TV 500 FiO2 35 PEEP 5 PS 7. Not on any sedation. Patient still febrile at the low 100s F. CXR show new inflitrates. Still on IV tylenol PRN and would stay at the high 90sF. Still on IV Cefepime 2g. WBC cound 6.5 Hgb 10.7 Hct 35.1 Plt count 59. Sodium 151 and Chloride 43 and are down trending. D5W running at 125ml/hr. Still on enteral feeding Glucerna 1.2 at goal rate of 53. Glucose at 352 and uptrending. CPK at 81. Hemodynamically stable at this time. Spoke with Infectious diease Dr. Singh and is concerned for source of infection and advised lumbar puncture and CSF analysis. Proceeded to obtain consent from patient but he refused multiple times. 09/13/23 Patient had no significant events overnight. Patient awake, comfortable and not in distress. Extubated yesterday and started on 3L O2 via NC. CXR showing improvement. Afebrile at this time. Still on Cefepime 2g IV. CBC showed Hgb 10.8 Hct 35.3 WBC 7.6. ART line removed yesterday without complications. Hemodynamically stable at this time and is not on any pressors. Attempted to feed with honey thick liquid overnight and was well tolerated. Glucose 201 and decreasing. Platelet 90 and increasing. Sodium 149 Chloride 3.6 on decreasing trend. D5W running at 125ml/h. Spoke with family and determined that son has guardianship over patient. Objective - Vital Signs Vital signs: Vital Signs Temp 99.0 F 09/13/23 08:00 Pulse 83 09/13/23 09:00 Resp 18 09/13/23 09:00 BP 148/76 09/13/23 09:00 Pulse Ox 95 09/13/23 09:00 FiO2 35 09/12/23 09:07 Intake & Output 09/12/23 09/13/23 09/13/23 18:59 06:59 18:59 Intake Total 1629 1164 Output Total 2080 1170 Balance -451 -6 Weight 94.8 kg 96.8 kg Intake: IV 1576 1164 0.9 sodium chloride 60 0 ACETAMINOPHEN IV (For NPO 100 ) 1,000 mg In Empty Bag 1 bag @ 400 mls/hr IVPB Q6HR PRN Rx#:[id number] Cefepime 2 gm In Sodium 100 Chloride 0.9% 100 ml @ 25 mls/hr IVPB Q12HR [facility] Rx #:[id number] Cefepime 2 gm In Sodium 50 25 Chloride 0.9% 100 ml @ 25 mls/hr IVPB Q8HR [facility] Rx# :[id number] Dextrose 5% in Water 1, 1200 1100 000 ml @ 100 mls/hr IV . Q10H [facility] Rx#:[id number] Pressure Bag 66 39 Tube Feeding 53 Output: Urine 2080 1170 Other: Voiding Method Indwelling Catheter Indwelling Catheter ABP, PAP, CO, CI - Last Documented Arterial Blood Pressure 121/60 - Constitutional General appearance: Present: no acute distress - EENT Eyes: Present: anicteric sclerae, EOMI, PERRLA, dentition normal, normal appearance ENT: Present: hearing grossly normal, NA/AT, normal oropharynx Ears: bilateral: normal - Neck Details: supple, no lesions or trauma Neck: Present: normal ROM. Absent: lymphadenopathy, other, rigidity, stridor, thyromegaly Carotids: bilateral: upstroke normal Thyroid: bilateral: normal size - Respiratory Respiratory: bilateral: CTA - Cardiovascular Rhythm: regular Heart sounds: normal: S1, S2 Abnormal Heart Sounds: Absent: systolic murmur, diastolic murmur, rub, S3 Gallop, S4 Gallop, click, other - Gastrointestinal General gastrointestinal: Present: normal bowel sounds, soft - Integumentary Integumentary: Present: normal, normal turgor - Neurologic Neurologic Comment(s): alert, awake, oriented to place and person - Musculoskeletal Musculoskeletal: Present: generalized weakness - Labs CBC & Chem 7: 09/13/23 03:11 09/13/23 03:11 Labs: Abnormal Lab Results - Last 24 Hours (Table) 09/12/23 09/12/23 09/12/23 Range/Units 05:00 05:00 11:45 RBC (4.30-5.90) m/uL Hgb (13.0-17.5) gm/dL Hct (39.0-53.0) % MCHC (31.0-37.0) g/dL Plt Count (150-450) k/uL Lymphocytes # (1.0-4.8) k/uL Sodium (137-145) mmol/L Chloride (98-107) mmol/L Carbon Dioxide (22-30) mmol/L BUN (9-20) mg/dL Glucose (74-99) mg/dL POC Glucose (mg/dL) 259 H (70-110) mg/dL Calcium (8.4-10.2) mg/dL C-Reactive Protein 24.1 H (<1.0) mg/dL Procalcitonin 1.31 H (0.02-0.09) ng/mL 09/12/23 09/12/23 09/12/23 Range/Units 18:10 21:23 23:32 RBC (4.30-5.90) m/uL Hgb (13.0-17.5) gm/dL Hct (39.0-53.0) % MCHC (31.0-37.0) g/dL Plt Count (150-450) k/uL Lymphocytes # (1.0-4.8) k/uL Sodium (137-145) mmol/L Chloride (98-107) mmol/L Carbon Dioxide (22-30) mmol/L BUN (9-20) mg/dL Glucose (74-99) mg/dL POC Glucose (mg/dL) 189 H 149 H 178 H (70-110) mg/dL Calcium (8.4-10.2) mg/dL C-Reactive Protein (<1.0) mg/dL Procalcitonin (0.02-0.09) ng/mL 09/13/23 09/13/23 09/13/23 Range/Units 03:11 03:11 06:09 RBC 3.68 L (4.30-5.90) m/uL Hgb 10.8 L (13.0-17.5) gm/dL Hct 35.3 L (39.0-53.0) % MCHC 30.5 L (31.0-37.0) g/dL Plt Count 90 L D (150-450) k/uL Lymphocytes # 0.6 L (1.0-4.8) k/uL Sodium 149 H (137-145) mmol/L Chloride 121 H (98-107) mmol/L Carbon Dioxide 21 L (22-30) mmol/L BUN 36 H (9-20) mg/dL Glucose 201 H (74-99) mg/dL POC Glucose (mg/dL) 190 H (70-110) mg/dL Calcium 7.3 L (8.4-10.2) mg/dL C-Reactive Protein (<1.0) mg/dL Procalcitonin (0.02-0.09) ng/mL Microbiology - Last 24 Hours (Table) 09/11/23 10:16 Blood Culture - Preliminary Blood - Imaging and Cardiology Chest x-ray: report reviewed Assessment and Plan Assessment: Acute diabetic ketoacidosis, recovered with closure of the anion gap Severe anion gap metabolic acidosis, secondary to above, normal lactate, secondary to DKA Hypotension and shock, hypovolemic in nature patient was aggressively treated with IV fluids. The patient is hemodynamically stable and not on pressor support Mechanical ventilaton via endotracheal intubation. Intubated by EMS and then triaged at [facility]. Chest x-ray shows patient has some limited atelectatic changes and infiltrates in lung bases, infiltrates are improving. Sputum culture is positive for E. coli, Streptococcus and MSSA. Placed on IV cefepime day 4. Encephalopathy, rule out anoxic encephalopathy. CT of the brain does not show midline shift or swelling. EEG is normal Hyperchloremic hypernatremia. Patient given Dextrose 5% water 100ml/hr and free water via OG tube Acute rhabdomyolysis, recovered CPK result normalized 81 Acute kidney injury, secondary to combination of above, renal function is improving BUN 46 Cr 1.15 Elevated troponins caused by increased myocardial demand History of type 2 diabetes mellitus History of bilateral great toe amputations History of hyperlipidemia History of coronary artery disease with previous PCI/stent History of seizure disorder, no seizure activity noted Plan: Continue to monitor in ICU Monitor and assess mental status Start thick liquid diet. 1:1 feeding. Monitor for aspiration For swallow evaluation Continue on Dilaudid IV bolus 1mg Q6 PRN for pain Place on D5%W 125mL/hr IV to correct sodium and chloride Discontinue free water flushes Cotinue on Insulin aspart Novolog 10U QID. Maintain sliding scale coverage per protocol and Levemir 30U. Watch for hypoglycemia Continue IV tylenol for low-grade fever and monitoring Continue IVP hydralzine PRN for elevated blood pressure Continue IVP cefepime 2 g every 12 hours, cultures show no growth Neurology and Cardiology, Infectious Disease consultation appreciated Maintain GI prophylaxis. IV protonix Prognisis is improving. He is full code Time with Patient: Greater than 30
--- NOTE | 2023-09-13 11:44 | P.PN ---
Subjective Progress Note Date: 09/13/23 Patient is a 67-year-old male with past medical history significant for diabetes mellitus, prior toe amputations, hyperlipidemia, coronary artery disease with previous stents, and seizure disorder. He is currently intubated to the mechanical ventilator, unresponsive without any sedation, unable to provide any information. Patient was transferred from [facility] late last night. Apparently, found unresponsive by his girlfriend, and last known well was 24 hours prior. Patient was intubated by EMS on arrival and triaged to [facility]. Initial presentation was consistent with DKA. Subsequently, the patient was transferred to [facility]. Patient is currently in trauma bay 1, he is intubated mechanical ventilator. Chest x-ray on arrival to our facility shows the endotracheal tube in satisfactory position approximately 4 cm above the mahesh. There is an orogastric tube that should be advanced. Right IJ central line catheter appears to terminate at the Cavo atrial junction. No focal infiltrates or evidence of pneumonia. Current ventilator settings are assist-control, respiratory rate 14, tidal volume 500, FiO2 35%, PEEP of 5. He is breathing slightly above set rate. Not on any sedation. Remains unresponsive even to deep painful stimuli. CT of the brain did not show any acute intracranial hemorrhage or mass effect. ABG is consistent with profound metabolic acidosis, with a PaO2 of 204, pCO2 of 25, pH of 7.04. Patient has been given a total of 2 A of bicarb. He is hypotensive and in a shock state, he has been fluid resuscitated with at least 2.5 L crystalloid fluid. No insulin infusion is currently ordered. He remains profoundly hypotensive, and has been started on norepinephrine which is currently infusing at 0.06 mcg/kg/min. CBC: WBC count 8.8, hemoglobin 14.5, hematocrit 50.3, platelets 136. CMP: Sodium 143, potassium 5.2, chloride 115, serum bicarb less than 5, anion gap unmeasurable, BUN 134, creatinine 4.29, glucose 910. Lactic 1.1. LFTs not elevated. Total bilirubin 0.7. Ammonia less than 9. CPK was 882. Troponin 0.084. NT BNP 2720. EKG shows normal sinus rhythm and is nondiagnostic for acute ischemia. Urinalysis positive for glucose and ketones. Urine toxicology screen at outside facility was essentially negative. Serum alcohol less than 10. Patient will be admitted to the intensive care unit once bed available. Today's evaluation of 09/09/2023, the patient is being seen for a follow-up. The patient remains off sedatives. He is grimacing to painful stimulation. He did have a CAT scan of the brain yesterday that showed no acute abnormalities. Suspect a component of hypoxic encephalopathy as the patient apparently was hypoxic when the patient was picked up by the EMS. At this point in time, the patient is grimacing only to deep painful stimulation. Not following any commands yet. The patient has recovered from his anion gap metabolic acidosis related to DKA. The patient is currently on half-normal saline at rate of 100 cc an hour. Most recent blood work shows a gap of 6 with a serum bicarb of 17. Sodium levels at 151. Potassium level at 3.3 which is being replaced. Blood sugars 879. The patient remains on insulin drip and the patient will be transition to long-acting insulin. Remains on the mechanical ventilator assist- control mode at rate of 20, tidal volume of 500, FiO2 of 35% with a PEEP of 5. Blood gas showed a pH of 7.4 with a pCO2 of 29 and pO2 of 103. The patient was tachypneic volume second mechanical ventilation the patient was switched to pressure control. CVP was 2 and after receiving a total of 3 L of fluid and the CVP came up to 8 and the patient has been off pressors since 11:30 PM yesterday. Cardiac rhythm is sinus. The patient is completing albuterol and loading and the patient is currently on 0.5 mg/min. Echocardiogram was done and patient has an ejection fraction of 40 to 45%. The white cell count today is at 5 with a hemoglobin of 12 and a platelet count of 62. Chest x-ray findings are stable. Some atelectatic changes in lung base bilaterally. No antibiotic coverage at this point in time. Sputum is showing gram-negative bacillus and presumptive Staph aureus. 09/10/2023, I am seeing the patient for a follow-up. The patient remains encephalopathic. He grimaces to painful stimulation in all 4 extremities and is withdrawing to pain. Nevertheless, does not follow any commands. His mobility is less in his lower extremities compared to the upper extremities. No seizure activity has been noted. CAT scan of the brain was negative. EEG showed moderate to severe encephalopathy. Suspect hypoxic encephalopathy. Meanwhile, the patient remains intubated on mechanical ventilator. On today's evaluation, he is on no sedation. He is on pressure control mode of mechanical ventilation at rate of 20, pressure control of 15, inspiratory time 0.9 with an FiO2 of 35% and a PEEP of 5. Blood gases from today showed a pH of 7.45 with a pCO2 of 25 and a pO2 of 97. Chest x-ray findings are stable and there is no significant interval change and there is no definite acute process. Based on the positive sputum culture, the patient was started on IV cefepime. Sputum sample was positive for a combination of bacteria including E. coli, Staph aureus/MSSA and Streptococcus. He is afebrile. Hemodynamically stable and he is on no pressors. In fact, he has developed some hypochloremic hyponatremia. He remains on half-normal saline at rate of 100 cc an hour. BUN 64 with a creatinine of 1.46 and a sodium level at 152 and a chloride level is 128. Potassium is at 3.5. WBC count is at 4.7 with a hemoglobin of 1.4 and a platelet count of 49. The patient's blood sugar is at 281. The patient remains on Levemir insulin which is at 15 units and the patient is also on sliding scale coverage. The patient is sitting enteral feeding for nutritional support and the patient is on Glucerna at a rate of 31 cc an hour. On 09/11/2023, the patient is being seen for a follow-up. Opening of his eyes. Not following commands consistently. Remains on mechanical ventilator. Currently is on a pressure control mode with rate of 20, pressure of 50 cm of water, respiratory exam of 0.9, FiO2 35% with a PEEP of 5. Blood gas showed a pH of 7.44 with episodes of 32 and pO2 of 109. Chest x-ray findings are stable. Hemodynamically stable. No pressors. He is on no sedative medications for now. Afebrile. Remains on IV cefepime. White cell count is 7.4, hemoglobin is 11.5 and a platelet count of 59. Sodium is 155, potassium is at 4, chloride is 131, BUN is 51 with a creatinine 1.2. LFTs are stable, CPK is down to 214. The patient is running a low-grade fever. Remains on IV cefepime. Sputum culture was polymicrobial including E. coli, Streptococcus and MSSA. Further blood cultures have been sent. No pressors for now. He is currently on Levemir insulin and sliding scale insulin coverage. The patient is also on Glucerna for enteral feeding and nutritional support she is currently at goal at 54 cc an ho ur. 09/12/2023, I am seeing the patient for a follow-up. The patient is off sedation. The patient is awake and alert and the patient has been on a pressure support mode of mechanical ventilation throughout the night. The patient is currently on a PSV of 7 and a PEEP of 5. The patient is following simple commands. Blood gas from today shows a pH of 7.41 with a pCO2 of 37 and pO2 of 94. Chest x-ray showing a right lower lobe consolidation which could be an area of pneumonia. The patient is currently afebrile. The patient remains on IV cefepime. The tube feeds are currently on hold in anticipation for possible extubation today. Meanwhile, the patient's blood work shows a white cell count of 6.5, hemoglobin 10.7 and a platelet count of 59. Sodium is currently down to 151. BUN is 46 with a creatinine of 1.1. LFTs are normal. Renal function is normal. CPK is down to 81. No other significant events overnight. Hemodynamically stable. Cardiac rhythm is sinus. 09/13/2023, the patient is being seen for the follow-up. The patient was weaned off the mechanical ventilator and the patient was extubated. On today's evaluation, he is alert and awake and is communicating. Nevertheless, he does have some confusion. He is alert and oriented x 1. No signs of respiratory distress. Continues to have a cough and nasal congestion and a chest x-ray from today is essentially unchanged and the patient has stable patchy opacities in the lung base bilaterally. Remains on IV cefepime. Hemodynamically stable. Sodium level is improving and currently is down to 149. Blood sugars under adequate control and the patient is using Levemir insulin 30 units in addition to NovoLog 4 times a day and a sliding scale coverage. Renal function has normalized. No pressors for now. No fever. Remains on D5 water at the rate of 100 cc an hour. Objective - Vital Signs Vital signs: Vital Signs Temp 100.2 F H 09/13/23 04:00 Pulse 83 09/13/23 07:48 Resp 13 09/13/23 07:00 BP 160/89 09/13/23 07:00 Pulse Ox 96 09/13/23 07:00 FiO2 35 09/12/23 09:07 Intake & Output 09/12/23 09/13/23 09/13/23 18:59 06:59 18:59 Intake Total 1629 1164 Output Total 2080 1170 Balance -451 -6 Weight 94.8 kg 96.8 kg Intake: IV 1576 1164 0.9 sodium chloride 60 0 ACETAMINOPHEN IV (For NPO 100 ) 1,000 mg In Empty Bag 1 bag @ 400 mls/hr IVPB Q6HR PRN Rx#:[id number] Cefepime 2 gm In Sodium 100 Chloride 0.9% 100 ml @ 25 mls/hr IVPB Q12HR [facility] Rx #:[id number] Cefepime 2 gm In Sodium 50 25 Chloride 0.9% 100 ml @ 25 mls/hr IVPB Q8HR [facility] Rx# :[id number] Dextrose 5% in Water 1, 1200 1100 000 ml @ 100 mls/hr IV . Q10H [facility] Rx#:[id number] Pressure Bag 66 39 Tube Feeding 53 Output: Urine 2079 1170 Other: Voiding Method Indwelling Catheter Indwelling Catheter ABP, PAP, CO, CI - Last Documented Arterial Blood Pressure 121/60 - Exam GENERAL EXAM: Following simple commands, awake, extubated, currently on 2 L HEAD: Normocephalic and atraumatic EYES: Sluggish reaction of pupils, equal size. NOSE: Clear with pink turbinates. THROAT: No erythema or exudates. Dry mucous membranes. NECK: No masses, no JVD. CHEST: No chest wall deformity. LUNGS: Equal air entry with no crackles, wheeze, rhonchi or dullness. CVS: S1 and S2 normal with no soft systolic murmur, regular rhythm. No extra heart sounds ABDOMEN: Abdomen flat, active bowel sounds, no hepatosplenomegaly, no guarding or rigidity. SPINE: No scoliosis or deformity SKIN: No rashes CENTRAL NERVOUS SYSTEM: Alert and oriented x 1, confused, no focal neurological deficit, no neck stiffness, following simple commands. No agitation. EXTREMITIES: There is no peripheral edema, clubbing, or cyanosis. Peripheral pulses are intact. Remote appearing bilateral great toe amputations. - Labs CBC & Chem 7: 09/13/23 03:11 09/13/23 03:11 Labs: Abnormal Lab Results - Last 24 Hours (Table) 09/12/23 09/12/23 09/12/23 Range/Units 05:00 05:00 11:45 RBC (4.30-5.90) m/uL Hgb (13.0-17.5) gm/dL Hct (39.0-53.0) % MCHC (31.0-37.0) g/dL Plt Count (150-450) k/uL Lymphocytes # (1.0-4.8) k/uL Sodium (137-145) mmol/L Chloride (98-107) mmol/L Carbon Dioxide (22-30) mmol/L BUN (9-20) mg/dL Glucose (74-99) mg/dL POC Glucose (mg/dL) 259 H (70-110) mg/dL Calcium (8.4-10.2) mg/dL C-Reactive Protein 24.1 H (<1.0) mg/dL Procalcitonin 1.31 H (0.02-0.09) ng/mL 09/12/23 09/12/23 09/12/23 Range/Units 18:10 21:23 23:32 RBC (4.30-5.90) m/uL Hgb (13.0-17.5) gm/dL Hct (39.0-53.0) % MCHC (31.0-37.0) g/dL Plt Count (150-450) k/uL Lymphocytes # (1.0-4.8) k/uL Sodium (137-145) mmol/L Chloride (98-107) mmol/L Carbon Dioxide (22-30) mmol/L BUN (9-20) mg/dL Glucose (74-99) mg/dL POC Glucose (mg/dL) 189 H 149 H 178 H (70-110) mg/dL Calcium (8.4-10.2) mg/dL C-Reactive Protein (<1.0) mg/dL Procalcitonin (0.02-0.09) ng/mL 09/13/23 09/13/23 09/13/23 Range/Units 03:11 03:11 06:09 RBC 3.68 L (4.30-5.90) m/uL Hgb 10.8 L (13.0-17.5) gm/dL Hct 35.3 L (39.0-53.0) % MCHC 30.5 L (31.0-37.0) g/dL Plt Count 90 L D (150-450) k/uL Lymphocytes # 0.6 L (1.0-4.8) k/uL Sodium 149 H (137-145) mmol/L Chloride 121 H (98-107) mmol/L Carbon Dioxide 21 L (22-30) mmol/L BUN 36 H (9-20) mg/dL Glucose 201 H (74-99) mg/dL POC Glucose (mg/dL) 190 H (70-110) mg/dL Calcium 7.3 L (8.4-10.2) mg/dL C-Reactive Protein (<1.0) mg/dL Procalcitonin (0.02-0.09) ng/mL Microbiology - Last 24 Hours (Table) 09/11/23 10:16 Blood Culture - Preliminary Blood Assessment and Plan Assessment: Acute diabetic ketoacidosis, recovered with closure of the anion gap, recovered, currently on Levemir insulin Hyperchloremic hypernatremia, currently on free water replacement through the NG. The patient's sodium is improving and currently is down to 149 Hypotension and shock, hypovolemic in nature patient was aggressively Treated with IV fluids. The patient's hemodynamics is stable Acute respiratory failure with lower lobe patchy infiltrate/pneumonia. Polymicrobial growth on the sputum culture and the patient remains on IV cef epime. Currently afebrile Fever, currently on IV cefepime and patient has developed a right lower lobe pulm infiltrate. Currently afebrile. Encephalopathy, rule out anoxic encephalopathy. CAT scan of the brain does not show any not showing any acute abnormalities. EEG showed no evidence of any seizure there is diffuse encephalopathy. Neurologically, the patient is following commands, does have some underlying delirium/confusion. Acute rhabdomyolysis, CPK level were elevated. Awaiting follow-up CPK levels, and the levels were essentially downtrending Acute kidney injury, secondary to combination of above, renal function is improving Elevated troponins, likely supply/demand mismatch History of type 2 diabetes mellitus History of bilateral great toe amputations History of hyperlipidemia History of coronary artery disease with previous PCI/stent History of seizure disorder, no seizure activity noted Encephalopathy secondary to above and the patient is currently off propofol and the mental status being monitored. Plan: The patient is extubated to nasal cannula currently on 2 L and chest x-ray findings are stable Continue Levemir insulin 30 units along with NovoLog 10 units 4 times a day and a sliding scale coverage Continue D5 water at a rate of 100 cc an hour and adjust insulin dose accordingly. Monitor sodium level, levels are improving Swallow evaluation PT consultation Monitor electrolytes and replace per protocol Patient is currently off pressors Echocardiogram was noted and the patient has impaired LV function with an ejection fraction of 40 to 45% Continue IV cefepime 2 g every 12 hours, pending further cultures Currently afebrile Neurology consultation appreciated Monitor CPK levels improving and downtrending Will extubate the patient and monitor the patient clinically here in the ICU. There is a critical care evaluation that was done more than 30 minutes. Time with Patient: Greater than 30
--- NOTE | 2023-09-13 13:04 | P.PN ---
Subjective Progress Note Date: 09/13/23 Romel Malin is a 67-year-old male with past medical history significant for diabetes mellitus, prior toe amputations, hyperlipidemia, coronary artery disease with previous stents, and seizure disorder. He is currently intubated to the mechanical ventilator, unresponsive without any sedation, unable to provide any information. Patient was transferred from [facility] late last night. Apparently, found unresponsive by his girlfriend, and last known well was 24 hours prior. Patient was intubated by EMS on arrival and triaged to [facility]. Initial presentation was consistent with DKA. Subsequently, the patient was transferred to [facility]. Patient is currently in trauma bay 1, he is intubated mechanical ventilator. Chest x-ray on arrival to our facility shows the endotracheal tube in satisfactory position approximately 4 cm above the mahesh. There is an orogastric tube that should be advanced. Right IJ central line catheter appears to terminate at the Cavo atrial junction. No focal infiltrates or evidence of pneumonia. Current ventilator settings are assist-control, respiratory rate 14, tidal volume 500, FiO2 35%, PEEP of 5. He is breathing slightly above set rate. Not on any sedation. Remains unresponsive even to deep painful stimuli. CT of the brain did not show any acute intracranial hemorrhage or mass effect. ABG is consistent with profound metabolic acidosis, with a PaO2 of 204, pCO2 of 25, pH of 7.04. Patient has been given a total of 2 A of bicarb. He is hypotensive and in a shock state, he has been fluid resuscitated with at least 2.5 L crystalloid fluid. No insulin infusion is currently ordered. He remains profoundly hypotensive, and has been started on norepinephrine which is currently infusing at 0.06 mcg/kg/min. CBC: WBC count 8.8, hemoglobin 14.5, hematocrit 50.3, platelets 136. CMP: Sodium 143, potassium 5.2, chloride 115, serum bicarb less than 5, anion gap unmeasurable, BUN 134, creatinine 4.29, gluc ose 910. Lactic 1.1. LFTs not elevated. Total bilirubin 0.7. Ammonia less than 9. CPK was 882. Troponin 0.084. NT BNP 2720. EKG shows normal sinus rhythm and is nondiagnostic for acute ischemia. Urinalysis positive for glucose and ketones. Urine toxicology screen at outside facility was essentially negative. Serum alcohol less than 10. Patient will be admitted to the intensive care unit once bed available. 09/09/2023 Patient grimaces to pain but does not follow commands. He remains off sedatives. Suspect to be hypoxic encephalopathy. Neurolgy was consulted and advises mentation is likely due to metabolic injury. CT scan of the brain yesterday that showed no midline shift or swelling. Patient anion gap has closed with an anion gap of 6, bicarb 17. Potassium at 3.3. Replacement ongoing per protocol. Blood sugars 879. Insulin IV will be discontinued and will transiotion to Insulin detemir SQ. Patient began to show increased breathing on the mechanical ventilator and was switched to pressure control rate of 20, tidal volume of 500, FiO2 of 35%, and a PEEP of 5. ABG showed pH of 7.4 with a pCO2 of 29 and pO2 of 103. WBC is at 5 with a hemoglobin of 12 and a platelet count of 62. Heparin SQ discontinued. Chest x-ray show atelectatic changes in lung base bilaterally. Sputum is showing 09/09 Patient still encephaolpathic but now opens eyes to command, moves arms independently, only grimaces to pain. Patient still intubated and comfortable on current vent settings. Still not on any sedation. Potassium replacement on going as per protocol but on the uptrend latest at 3.5 . Glucose at the 211 and sustaining at levels of 200s. On Glucerna 1.5 rate at 30cc/hr via enteral feeding. Insulin increased to 25 units and on sliding scale coverage. Sputum culture grew gram-negative bacillus and presumptive Staph aureus. started on IV Cefepime. WBC 4.7, hemoglobin 11.4, hematocrit 35 and platelet count 49. Blood pressures increase at 140-160/60-80. Started on IV hydralazine 10mg PRN. Afebrile on assessment. Sodium elevated trend at 152. 0.45% normal saline discontinued and start on free water through OG tube. 09/10. Patient seen and examined. Continues to be intubated at the bedside, all questions answered 09/11. Patient seen and examined. Patient extubated this morning, following commands, currently on oxygen via nasal cannula 09/12. Patient seen and examined. Labs done this morning showed WBC 7.6, hemoglobin 10.8, platelet count 90, sodium 149, potassium 3.6, BUN 36, creatinine 1.06. Patient getting chest PT REVIEW OF SYSTEMS: Denies any chest pain. Denies nausea or vomiting PHYSICAL EXAMINATION: GENERAL: The patient is alert HEENT: Pupils are round and equally reacting to light. EOMI. No scleral icterus. No conjunctival pallor. Normocephalic, atraumatic. No pharyngeal erythema. No thyromegaly. CARDIOVASCULAR: S1 and S2 present. No murmurs, rubs, or gallops. PULMONARY: Chest is clear to auscultation, no wheezing or crackles. ABDOMEN: Soft, nontender, nondistended, normoactive bowel sounds. No palpable organomegaly. MUSCULOSKELETAL: No joint swelling or deformity. EXTREMITIES: No cyanosis, clubbing, or pedal edema. NEUROLOGICAL: Alert, following commands SKIN: No rashes. Assessment and plan Acute diabetic ketoacidosis, recovered with closure of the anion gap. Severe anion gap metabolic acidosis Hypotension and shock Acute hypoxemic respiratory failure s/p endotracheal intubation. Bacterial pneumonia, sputum positive for E. coli, Streptococcus and MSSA Encephalopathy, rule out anoxic encephalopathy. Acute rhabdomyolysis Acute kidney injury, secondary to combination of above, renal function is improving Elevated troponins caused by increased myocardial damnd history of type 2 diabetes mellitus History of bilateral great toe amputations History of hyperlipidemia History of coronary artery disease with previous PCI/stent History of seizure disorder, no seizure activity noted Plan: Monitor vital sign Monitor CBC Monitor CMP Continue ox supplementation aggressive bronchopulmonary hygiene Continue chest physical therapy Monitor blood sugar levels, continue current insulin regimen Continue IV cefepime 2 g every 12 hours, pending further cultures Continue amiodarone Continue tube feeding Critical care following ID following Neurology following, EEG done was negative for any seizures, neurology recommended keeping patient on Keppra, continue aspirin Lipitor Labs and medication were reviewed.. Continue same treatment. Continue with symptomatic treatment. Resume home medication. Monitor labs and vitals. DVT and GI prophylaxis. Further recommendations as per clinical course of the patient Dictation was produced using [employer] dictation software. please excuse any grammatical, word or spelling errors. Objective - Vital Signs Vital signs: Vital Signs Temp 99.0 F 09/13/23 08:00 Pulse 83 09/13/23 09:00 Resp 18 09/13/23 09:00 BP 148/76 09/13/23 09:00 Pulse Ox 95 09/13/23 09:00 FiO2 35 09/12/23 09:07 Intake & Output 09/12/23 09/13/23 09/13/23 18:59 06:59 18:59 Intake Total 1629 1164 Output Total 208 1170 Balance -451 -6 Weight 94.8 kg 96.8 kg Intake: IV 1576 1164 0.9 sodium chloride 60 0 ACETAMINOPHEN IV (For NPO 100 ) 1,000 mg In Empty Bag 1 bag @ 400 mls/hr IVPB Q6HR PRN Rx#:[id number] Cefepime 2 gm In Sodium 100 Chloride 0.9% 100 ml @ 25 mls/hr IVPB Q12HR [facility] Rx #:[id number] Cefepime 2 gm In Sodium 50 25 Chloride 0.9% 100 ml @ 25 mls/hr IVPB Q8HR [facility] Rx# :[id number] Dextrose 5% in Water 1, 1200 1100 000 ml @ 100 mls/hr IV . Q10H [facility] Rx#:[id number] Pressure Bag 66 39 Tube Feeding 53 Output: Urine 2079 1170 Other: Voiding Method Indwelling Catheter Indwelling Catheter ABP, PAP, CO, CI - Last Documented Arterial Blood Pressure 121/60 - Labs CBC & Chem 7: 09/13/23 03:11 09/13/23 03:11 Labs: Abnormal Lab Results - Last 24 Hours (Table) 09/12/23 09/12/23 09/12/23 Range/Units 05:00 05:00 11:45 RBC (4.30-5.90) m/uL Hgb (13.0-17.5) gm/dL Hct (39.0-53.0) % MCHC (31.0-37.0) g/dL Plt Count (150-450) k/uL Lymphocytes # (1.0-4.8) k/uL Sodium (137-145) mmol/L Chloride (98-107) mmol/L Carbon Dioxide (22-30) mmol/L BUN (9-20) mg/dL Glucose (74-99) mg/dL POC Glucose (mg/dL) 259 H (70-110) mg/dL Calcium (8.4-10.2) mg/dL C-Reactive Protein 24.1 H (<1.0) mg/dL Procalcitonin 1.31 H (0.02-0.09) ng/mL 09/12/23 09/12/23 09/12/23 Range/Units 18:10 21:23 23:32 RBC (4.30-5.90) m/uL Hgb (13.0-17.5) gm/dL Hct (39.0-53.0) % MCHC (31.0-37.0) g/dL Plt Count (150-450) k/uL Lymphocytes # (1.0-4.8) k/uL Sodium (137-145) mmol/L Chloride (98-107) mmol/L Carbon Dioxide (22-30) mmol/L BUN (9-20) mg/dL Glucose (74-99) mg/dL POC Glucose (mg/dL) 189 H 149 H 178 H (70-110) mg/dL Calcium (8.4-10.2) mg/dL C-Reactive Protein (<1.0) mg/dL Procalcitonin (0.02-0.09) ng/mL 09/13/23 09/13/23 09/13/23 Range/Units 03:11 03:11 06:09 RBC 3.68 L (4.30-5.90) m/uL Hgb 10.8 L (13.0-17.5) gm/dL Hct 35.3 L (39.0-53.0) % MCHC 30.5 L (31.0-37.0) g/dL Plt Count 90 L D (150-450) k/uL Lymphocytes # 0.6 L (1.0-4.8) k/uL Sodium 149 H (137-145) mmol/L Chloride 121 H (98-107) mmol/L Carbon Dioxide 21 L (22-30) mmol/L BUN 36 H (9-20) mg/dL Glucose 201 H (74-99) mg/dL POC Glucose (mg/dL) 190 H (70-110) mg/dL Calcium 7.3 L (8.4-10.2) mg/dL C-Reactive Protein (<1.0) mg/dL Procalcitonin (0.02-0.09) ng/mL Microbiology - Last 24 Hours (Table) 09/11/23 10:16 Blood Culture - Preliminary Blood
--- NOTE | 2023-09-13 13:24 | P.PN ---
Subjective Progress Note Date: 09/13/23 HISTORY OF PRESENTING ILLNESS 67-year-old male with past medical history of type 2 diabetes, prior to ampu tations, dyslipidemia, CAD s/p PCI, seizure disorder. Patient is not able to provide any history as he is intubated and is on ventilator support. Patient was transferred from [facility] yesterday. Apparently patient was found unresponsive by patient's partner and last well-known time was 24 hours before. Initial presentation was consistent with DKA and rhabdomyolysis. On admission his labs showed WBC 8.8, hemoglobin 14.5, BUN 134, creatinine 4.29, glucose 91, lactate 1.1. CPK 882, troponin 0.08. BNP 2720. ECG showed normal sinus rhythm with nonspecific interventricular conduction delay. Repeat labs showed CPK increased to 1068. TSH 1.3. 09/09/2023 Patient maintained on ventilator support. He is off pressors. His echocardiogram showed an EF of 40 to 45%, Hemoglobin 12, platelet count 62. On 09/08/2023 patient was noticed to go into atrial fibrillation with RVR. For this he was started on IV amiodarone drip. Currently patient is in sinus rhythm. Good urine output, kidney function is improving, creatinine 1.9 today. 06/28/2023 Patient is seen and examined at bedside this a.m. He continues to be on ventilator support. BP 127/52, heart rate 85, WBC count 7.4, hemoglobin 11.5 Sodium 155, chloride 131, BUN 51, creatinine 1.26. On admission creatinine was 4.2 Patient continues to be on broad-spectrum antibiotic 09/12/2023 Patient was extubated today. BP 143/81, heart rate 87 bpm, continues to be in sinus rhythm. Hemoglobin 10.7, creatinine 1.25, sodium 151, chloride 126. Chest x-ray shows mild congestion in bilateral lower lung thomas. Platelets at 59 September 13, 2023 Patient was extubated 09/12/2023. Hemodynamically stable, currently in sinus rhythm. Kidney function is improving. Does appear mildly volume overloaded. Platelets have improved to 90. PHYSICAL EXAMINATION Vital signs reviewed. Head: Normocephalic. Eyes: Sclerae nonicteric. Neck: Brisk carotid upstroke, no jugular venous distention. Lungs: Clear to auscultation. Heart: Regular rate and rhythm, S1-S2, no S3, no murmur or rub. Abdomen: Soft nontender, positive bowel sounds. Extremities: No edema, intact distal pulses. Neuro: Alert, oritented, no focal deficits. Detailed neuro exam was not performed. 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 Less likely ACS Thrombocytopenia PAD with prior history of bilateral great toe amputation CAD s/p PCI Nonspecific IVCD on ECG Prior history of seizure disorder Obesity PLAN Continue supportive care for DKA, rhabdomyolysis and respiratory failure management as per ICU team Recommend aspirin 81 mg, Lipitor 40 mg Start Eliquis 5 mg twice daily for atrial fibrillation now that platelets are at 90 Give 1 dose of IV Lasix as patient is in positive fluid balance since admission and appears volume overloaded Start losartan 25 mg daily for GDMT Consider SGLT2 starting tomorrow amiodarone 400 mg BID until 09/15/2023, thereafter reduce dose Patient's mild troponin elevation is most likely due to combination of poor renal clearance, DKA and abnormalities. Consider Ischemic evaluation on outpatient basis. Objective - Vital Signs Vital signs: Vital Signs Temp 99.0 F 09/13/23 08:00 Pulse 83 09/13/23 11:19 Resp 17 09/13/23 11:00 BP 144/78 09/13/23 11:00 Pulse Ox 96 09/13/23 11:00 FiO2 35 09/12/23 09:07 Intake & Output 09/12/23 09/13/23 09/13/23 18:59 06:59 18:59 Intake Total 1629 1164 384 Output Total 2080 1170 125 Balance -451 -6 259 Weight 94.8 kg 96.8 kg Intake: IV 1576 1164 384 0.9 sodium chloride 60 0 0 ACETAMINOPHEN IV (For NPO 100 ) 1,000 mg In Empty Bag 1 bag @ 400 mls/hr IVPB Q6HR PRN Rx#:[id number] Cefepime 2 gm In Sodium 100 Chloride 0.9% 100 ml @ 25 mls/hr IVPB Q12HR [facility] Rx #:[id number] Cefepime 2 gm In Sodium 50 25 75 Chloride 0.9% 100 ml @ 25 mls/hr IVPB Q8HR [facility] Rx# :[id number] Dextrose 5% in Water 1, 1200 1100 300 000 ml @ 100 mls/hr IV . Q10H [facility] Rx#:[id number] Pressure Bag 66 39 9 Tube Feeding 53 Output: Urine 2080 1170 125 Other: Voiding Method Indwelling Catheter Indwelling Catheter Indwelling Catheter ABP, PAP, CO, CI - Last Documented Arterial Blood Pressure 121/60 - Labs CBC & Chem 7: 09/13/23 03:11 09/13/23 03:11 Labs: Abnormal Lab Results - Last 24 Hours (Table) 09/12/23 09/12/23 09/12/23 Range/Units 05:00 05:00 18:10 RBC (4.30-5.90) m/uL Hgb (13.0-17.5) gm/dL Hct (39.0-53.0) % MCHC (31.0-37.0) g/dL Plt Count (150-450) k/uL Lymphocytes # (1.0-4.8) k/uL Sodium (137-145) mmol/L Chloride (98-107) mmol/L Carbon Dioxide (22-30) mmol/L BUN (9-20) mg/dL Glucose (74-99) mg/dL POC Glucose (mg/dL) 189 H (70-110) mg/dL Calcium (8.4-10.2) mg/dL C-Reactive Protein 24.1 H (<1.0) mg/dL Procalcitonin 1.31 H (0.02-0.09) ng/mL 09/12/23 09/12/23 09/13/23 Range/Units 21:23 23:32 03:11 RBC 3.68 L (4.30-5.90) m/uL Hgb 10.8 L (13.0-17.5) gm/dL Hct 35.3 L (39.0-53.0) % MCHC 30.5 L (31.0-37.0) g/dL Plt Count 90 L D (150-450) k/uL Lymphocytes # 0.6 L (1.0-4.8) k/uL Sodium (137-145) mmol/L Chloride (98-107) mmol/L Carbon Dioxide (22-30) mmol/L BUN (9-20) mg/dL Glucose (74-99) mg/dL POC Glucose (mg/dL) 149 H 178 H (70-110) mg/dL Calcium (8.4-10.2) mg/dL C-Reactive Protein (<1.0) mg/dL Procalcitonin (0.02-0.09) ng/mL 09/13/23 09/13/23 Range/Units 03:11 06:09 RBC (4.30-5.90) m/uL Hgb (13.0-17.5) gm/dL Hct (39.0-53.0) % MCHC (31.0-37.0) g/dL Plt Count (150-450) k/uL Lymphocytes # (1.0-4.8) k/uL Sodium 149 H (137-145) mmol/L Chloride 121 H (98-107) mmol/L Carbon Dioxide 21 L (22-30) mmol/L BUN 36 H (9-20) mg/dL Glucose 201 H (74-99) mg/dL POC Glucose (mg/dL) 190 H (70-110) mg/dL Calcium 7.3 L (8.4-10.2) mg/dL C-Reactive Protein (<1.0) mg/dL Procalcitonin (0.02-0.09) ng/mL Microbiology - Last 24 Hours (Table) 09/07/23 23:15 Blood Culture - Final Blood 09/11/23 10:16 Blood Culture - Preliminary Blood
[2023-09-13 13:45] LABS: Glucose,Whole Blood 116 mg/dL (70-110)
[2023-09-13] MEDS: FUROSEMIDE 10 MG/ML 4 ML VIAL IV STA (14:05)
--- NOTE | 2023-09-13 14:36 | P.PN ---
Subjective Progress Note Date: 09/13/23 I am following-up with patient and per ICU reside and nurse, patient mentation is improving. Patient is continuing to refuse lumbar puncture. Objective - Vital Signs Vital signs: Vital Signs Temp 98.5 F 09/13/23 12:00 Pulse 82 09/13/23 13:00 Resp 17 09/13/23 13:00 BP 150/85 09/13/23 13:00 Pulse Ox 96 09/13/23 13:00 FiO2 35 09/12/23 09:07 Intake & Output 09/12/23 09/13/23 09/13/23 18:59 06:59 18:59 Intake Total 1629 1164 839 Output Total 2080 1170 385 Balance -451 -6 454 Weight 94.8 kg 96.8 kg Intake: IV 1576 1164 839 0.9 sodium chloride 60 0 30 ACETAMINOPHEN IV (For NPO 100 ) 1,000 mg In Empty Bag 1 bag @ 400 mls/hr IVPB Q6HR PRN Rx#:[id number] Cefepime 2 gm In Sodium 100 Chloride 0.9% 100 ml @ 25 mls/hr IVPB Q12HR [facility] Rx #:[id number] Cefepime 2 gm In Sodium 50 25 100 Chloride 0.9% 100 ml @ 25 mls/hr IVPB Q8HR [facility] Rx# :[id number] Dextrose 5% in Water 1, 1200 1100 700 000 ml @ 100 mls/hr IV . Q10H [facility] Rx#:[id number] Pressure Bag 66 39 9 Tube Feeding 53 Output: Urine 2079 1170 385 Other: Voiding Method Indwelling Catheter Indwelling Catheter Indwelling Catheter ABP, PAP, CO, CI - Last Documented Arterial Blood Pressure 121/60 - Exam General: Lying in bed and is not in acute distress. Neuro: Limited. Patient is drowsy but is is more awake today compared to past 4 days. He is oriented to self and states in hospital. He correctly states the current [place] president and states the food service technician is a woman. He correctly named objects (watch and glasses). Is following some simple commands. No aphasia from limited language. Pupils are round, equal and reactive to light. No facial weakness from limited. Is able to show thumbs up on both hands. Is able to lift bilateral uppers above gravity. Bilateral upper extremities are edematous. Has bilateral toes amputated Some of the work-up during this hospital visit consisted of: Tmax is past 24 hours are 100.4 Yesterday at 5am temperature of 103.0 wbc has been normal. He has thrombocytopenia TSH is 1.350 clinically ammonia level is less than 9 CK level is 882-->214 Vitamin B12: [address] of the head is reported as no acute intracranial hemorrhage or midline shift. There is mild diffuse age-related cerebral atrophy and mild to moderate probable chronic small vessel ischemic change redemonstrated. No significant change from most recent prior CT. Personally reviewed the CT and I agree there is no acute or subacute ischemia. Echo is reported as technically difficult study. Limited study. Overall left ventricle systolic function moderately impaired. Routine EEG: Is abnormal. The background slowing is suggestive of severe en cephalopathy likely due to toxic-metabolic derrangement. Otherwise, there is no focal slowing, epileptiform discharges or seizure on the EEG. Blood culture is E. Coli, staph aureus and Strep agalctiae CXR: Similar patch density medial left base. Increasing patchy atelectasis/infiltrate at right base. - Labs CBC & Chem 7: 09/13/23 03:11 09/13/23 03:11 Labs: Abnormal Lab Results - Last 24 Hours (Table) 09/12/23 09/12/23 09/12/23 Range/Units 05:00 05:00 18:10 RBC (4.30-5.90) m/uL Hgb (13.0-17.5) gm/dL Hct (39.0-53.0) % MCHC (31.0-37.0) g/dL Plt Count (150-450) k/uL Lymphocytes # (1.0-4.8) k/uL Sodium (137-145) mmol/L Chloride (98-107) mmol/L Carbon Dioxide (22-30) mmol/L BUN (9-20) mg/dL Glucose (74-99) mg/dL POC Glucose (mg/dL) 189 H (70-110) mg/dL Calcium (8.4-10.2) mg/dL C-Reactive Protein 24.1 H (<1.0) mg/dL Procalcitonin 1.31 H (0.02-0.09) ng/mL 09/12/23 09/12/23 09/13/23 Range/Units 21:23 23:32 03:11 RBC 3.68 L (4.30-5.90) m/uL Hgb 10.8 L (13.0-17.5) gm/dL Hct 35.3 L (39.0-53.0) % MCHC 30.5 L (31.0-37.0) g/dL Plt Count 90 L D (150-450) k/uL Lymphocytes # 0.6 L (1.0-4.8) k/uL Sodium (137-145) mmol/L Chloride (98-107) mmol/L Carbon Dioxide (22-30) mmol/L BUN (9-20) mg/dL Glucose (74-99) mg/dL POC Glucose (mg/dL) 149 H 178 H (70-110) mg/dL Calcium (8.4-10.2) mg/dL C-Reactive Protein (<1.0) mg/dL Procalcitonin (0.02-0.09) ng/mL 09/13/23 09/13/23 09/13/23 Range/Units 03:11 06:09 13:44 RBC (4.30-5.90) m/uL Hgb (13.0-17.5) gm/dL Hct (39.0-53.0) % MCHC (31.0-37.0) g/dL Plt Count (150-450) k/uL Lymphocytes # (1.0-4.8) k/uL Sodium 149 H (137-145) mmol/L Chloride 121 H (98-107) mmol/L Carbon Dioxide 21 L (22-30) mmol/L BUN 36 H (9-20) mg/dL Glucose 201 H (74-99) mg/dL POC Glucose (mg/dL) 190 H 116 H (70-110) mg/dL Calcium 7.3 L (8.4-10.2) mg/dL C-Reactive Protein (<1.0) mg/dL Procalcitonin (0.02-0.09) ng/mL Microbiology - Last 24 Hours (Table) 09/07/23 23:15 Blood Culture - Final Blood 09/11/23 10:16 Blood Culture - Preliminary Blood Assessment and Plan Assessment: This is a 67-year-old gentleman with history of seizure disorder, diabetes mellitus, amputation of the toes due to his uncontrolled diabetes who was transferred from [place] to our facility on 09/07/2023 for his escalation of care of his acute DKA. Presented to our facility his serum glucose was as high as 900s opiates in the 200s and he continues to have altered mental status even though he is not been on any sedation in our facility. Patient has hypophosphatemia hypermagnesemia, hypernatremia Altered Mental status is due to metabolic encephalopathy due multifactorial (DKA, MARIANO, with electrolyte disturbance), septicemia (E.coli, Staph aureus and strep agalactiae) and probable aspiration pneumonia. Had two CT head which are negative for acute process. EEG is severe encephalopathy but no seizure or discharges appreciated----mentation is slowly improving. Today he was oriented to self, stated he was in hospital and stated the is 1999 something. Mentation is slowly improving in the last 4 days and every days mentation is better. Pyrexia likely due to septicemia and probable aspiration pneumonia Respiratory distress and patient was intubated for airway protection--Today was extubated but remains to have a lot of secretion and sounds coarse. 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 Patient is on aspirin 81 mg and Lipitor [address] Singh (I.D.) recommend Lumbar puncture to rule out meningoencephalitis. I doubt it. He consulted Pain management for Lumbar Puncture. Patient is refusing Lumbar Puncture on multiple occasions. Will defer the rest of the medical management to primary and other specialists. The plan is discussed with ICU team. Time with Patient: Less than 30
--- NOTE | 2023-09-13 14:43 | P.PN ---
Subjective Progress Note Date: 09/13/23 Principal diagnosis: Reason for follow-up is fever Patient is a 67-year-old male with a past medical history significant for coronary disease diabetes mellitus [place] seizure disorder history of diabetic foot infection status post bilateral big toe amputation presenting to the hospital with unresponsiveness patient was initially hypothermic subsequently started spiking fever initial workup with a chest x-ray and urine was negative. On today's evaluation that is 09/13/2023, Patient did have a low-grade fever 100.2 at 4 AM, the patient is afebrile this afternoon, patient is currently on 2 L current oxygen and denies having any shortness of breath, the patient denies any chest pain or any worsening cough, the patient denies any nausea vomiting did not have any abdominal pain and no diarrhea, but denies any headache now that he is in the hospital. Patient white count is normal at 7.6 creatinine 1.06 blood culture negative Objective - Vital Signs Vital signs: Vital Signs Temp 99.0 F 09/13/23 08:00 Pulse 80 09/13/23 10:00 Resp 13 09/13/23 10:00 BP 151/81 09/13/23 10:00 Pulse Ox 95 09/13/23 10:00 FiO2 35 09/12/23 09:07 Intake & Output 09/12/23 09/13/23 09/13/23 18:59 06:59 18:59 Intake Total 1629 1164 384 Output Total 0 1170 125 Balance -451 -6 259 Weight 94.8 kg 96.8 kg Intake: IV 1576 1164 384 0.9 sodium chloride 60 0 0 ACETAMINOPHEN IV (For NPO 100 ) 1,000 mg In Empty Bag 1 bag @ 400 mls/hr IVPB Q6HR PRN Rx#:[id number] Cefepime 2 gm In Sodium 100 Chloride 0.9% 100 ml @ 25 mls/hr IVPB Q12HR [facility] Rx #:[id number] Cefepime 2 gm In Sodium 50 25 75 Chloride 0.9% 100 ml @ 25 mls/hr IVPB Q8HR [facility] Rx# :[id number] Dextrose 5% in Water 1, 1200 1100 300 000 ml @ 100 mls/hr IV . Q10H [facility] Rx#:[id number] Pressure Bag 66 39 9 Tube Feeding 53 Output: Urine 2080 1170 125 Other: Voiding Method Indwelling Catheter Indwelling Catheter ABP, PAP, CO, CI - Last Documented Arterial Blood Pressure 121/60 - Exam GENERAL DESCRIPTION: An elderly male lying in bed in no distress RESPIRATORY SYSTEM: Unlabored breathing , decreased breath sounds at bases HEART: S1 S2 regular rate and rhythm , ABDOMEN: Soft , no tenderness EXTREMITIES: No edema feet - Labs CBC & Chem 7: 09/13/23 03:11 09/13/23 03:11 Labs: Abnormal Lab Results - Last 24 Hours (Table) 09/12/23 09/12/23 09/12/23 Range/Units 05:00 05:00 11:45 RBC (4.30-5.90) m/uL Hgb (13.0-17.5) gm/dL Hct (39.0-53.0) % MCHC (31.0-37.0) g/dL Plt Count (150-450) k/uL Lymphocytes # (1.0-4.8) k/uL Sodium (137-145) mmol/L Chloride (98-107) mmol/L Carbon Dioxide (22-30) mmol/L BUN (9-20) mg/dL Glucose (74-99) mg/dL POC Glucose (mg/dL) 259 H (70-110) mg/dL Calcium (8.4-10.2) mg/dL C-Reactive Protein 24.1 H (<1.0) mg/dL Procalcitonin 1.31 H (0.02-0.09) ng/mL 09/12/23 09/12/23 09/12/23 Range/Units 18:10 21:23 23:32 RBC (4.30-5.90) m/uL Hgb (13.0-17.5) gm/dL Hct (39.0-53.0) % MCHC (31.0-37.0) g/dL Plt Count (150-450) k/uL Lymphocytes # (1.0-4.8) k/uL Sodium (137-145) mmol/L Chloride (98-107) mmol/L Carbon Dioxide (22-30) mmol/L BUN (9-20) mg/dL Glucose (74-99) mg/dL POC Glucose (mg/dL) 189 H 149 H 178 H (70-110) mg/dL Calcium (8.4-10.2) mg/dL C-Reactive Protein (<1.0) mg/dL Procalcitonin (0.02-0.09) ng/mL 09/13/23 09/13/23 09/13/23 Range/Units 03:11 03:11 06:09 RBC 3.68 L (4.30-5.90) m/uL Hgb 10.8 L (13.0-17.5) gm/dL Hct 35.3 L (39.0-53.0) % MCHC 30.5 L (31.0-37.0) g/dL Plt Count 90 L D (150-450) k/uL Lymphocytes # 0.6 L (1.0-4.8) k/uL Sodium 149 H (137-145) mmol/L Chloride 121 H (98-107) mmol/L Carbon Dioxide 21 L (22-30) mmol/L BUN 36 H (9-20) mg/dL Glucose 201 H (74-99) mg/dL POC Glucose (mg/dL) 190 H (70-110) mg/dL Calcium 7.3 L (8.4-10.2) mg/dL C-Reactive Protein (<1.0) mg/dL Procalcitonin (0.02-0.09) ng/mL Microbiology - Last 24 Hours (Table) 09/11/23 10:16 Blood Culture - Preliminary Blood Assessment and Plan (1) Fever Current Visit: Yes Status: Acute Code(s): R50.9 - FEVER, UNSPECIFIED SNOMED Code(s): 360145372 Plan: 1patient presented to the hospital unresponsive 4 days ago with initial presentation to the outside facility patient was initially hypothermic now with fever patient initial workup including a chest x-ray that has been negative urine has been negative abdominal soft on clinical examination, white count remains to be normal blood culture negative question of viral syndrome versus central source of this fever 2-patient did have a negative influenza RSV and COVID testing, patient did have improvement in his mentation and fever pattern has improved patient has refused LP discussed with him again today and continue to refuse 3-patient to continue with cefepime and continue supportive care Dictation was produced using [employer] dictation software. please excuse any grammatical, word or spelling errors. Time with Patient: Less than 30
[2023-09-13] MEDS: APIXABAN 5 MG TAB PO SCH (15:18)
[2023-09-13] MEDS: LOSARTAN 25 MG TAB PO SCH (15:20)
[2023-09-13 17:19] LABS: Glucose,Whole Blood 138 mg/dL (70-110)
[2023-09-13 20:44] LABS: Glucose,Whole Blood 198 mg/dL (70-110)
[2023-09-13] MEDS: hydrALAZINE HCL 20 MG/ML 1 ML VIAL IVP PRN (23:25)
[2023-09-13 23:59] LABS: Glucose,Whole Blood 146 mg/dL (70-110)
[2023-09-14] MEDS: INSULIN REGULAR 100 UNIT/ML VIAL (IV) IV ONE (03:35)
[2023-09-14] MEDS: DILTIAZEM 125 MG in SODIUM CHLORIDE 0.9% 100 ML IV SCH (03:35)
[2023-09-14 06:07] LABS: Glucose,Whole Blood 142 mg/dL (70-110)
[2023-09-14 11:25] LABS: Glucose,Whole Blood 225 mg/dL (70-110)
[2023-09-14] MEDS: INSULIN ASPART (NovoLOG) 100 UNIT/ML VIAL SQ SCH (11:47)
[2023-09-14] MEDS: DEXTROSE 5% IN WATER 1,000 ML IV ONE (11:49)
--- NOTE | 2023-09-14 12:28 | P.PN ---
Subjective Progress Note Date: 09/14/23 Patient is a 67-year-old male with past medical history significant for diabetes mellitus, prior toe amputations, hyperlipidemia, coronary artery disease with previous stents, and seizure disorder. He is currently intubated to the mechanical ventilator, unresponsive without any sedation, unable to provide any information. Patient was transferred from [facility] late last night. Apparently, found unresponsive by his girlfriend, and last known well was 24 hours prior. Patient was intubated by EMS on arrival and triaged to [facility]. Initial presentation was consistent with DKA. Subsequently, the patient was transferred to [facility]. Patient is currently in trauma bay 1, he is intubated mechanical ventilator. Chest x-ray on arrival to our facility shows the endotracheal tube in satisfactory position approximately 4 cm above the mahesh. There is an orogastric tube that should be advanced. Right IJ central line catheter appears to terminate at the Cavo atrial junction. No focal infiltrates or evidence of pneumonia. Current ventilator settings are assist-control, respiratory rate 14, tidal volume 500, FiO2 35%, PEEP of 5. He is breathing slightly above set rate. Not on any sedation. Remains unresponsive even to deep painful stimuli. CT of the brain did not show any acute intracranial hemorrhage or mass effect. ABG is consistent with profound metabolic acidosis, with a PaO2 of 204, pCO2 of 25, pH of 7.04. Patient has been given a total of 2 A of bicarb. He is hypotensive and in a shock state, he has been fluid resuscitated with at least 2.5 L crystalloid fluid. No insulin infusion is currently ordered. He remains profoundly hypotensive, and has been started on norepinephrine which is currently infusing at 0.06 mcg/kg/min. CBC: WBC count 8.8, hemoglobin 14.5, hematocrit 50.3, platelets 136. CMP: Sodium 143, potassium 5.2, chloride 115, serum bicarb less than 5, anion gap unmeasurable, BUN 134, creatinine 4.29, glucose 910. Lactic 1.1. LFTs not elevated. Total bilirubin 0.7. Ammonia less than 9. CPK was 882. Troponin 0.084. NT BNP 2720. EKG shows normal sinus rhythm and is nondiagnostic for acute ischemia. Urinalysis positive for glucose and ketones. Urine toxicology screen at outside facility was essentially negative. Serum alcohol less than 10. Patient will be admitted to the intensive care unit once bed available. Today's evaluation of 09/09/2023, the patient is being seen for a follow-up. The patient remains off sedatives. He is grimacing to painful stimulation. He did have a CAT scan of the brain yesterday that showed no acute abnormalities. Suspect a component of hypoxic encephalopathy as the patient apparently was hypoxic when the patient was picked up by the EMS. At this point in time, the patient is grimacing only to deep painful stimulation. Not following any commands yet. The patient has recovered from his anion gap metabolic acidosis related to DKA. The patient is currently on half-normal saline at rate of 100 cc an hour. Most recent blood work shows a gap of 6 with a serum bicarb of 17. Sodium levels at 151. Potassium level at 3.3 which is being replaced. Blood sugars 879. The patient remains on insulin drip and the patient will be transition to long-acting insulin. Remains on the mechanical ventilator assist- control mode at rate of 20, tidal volume of 500, FiO2 of 35% with a PEEP of 5. Blood gas showed a pH of 7.4 with a pCO2 of 29 and pO2 of 103. The patient was tachypneic volume second mechanical ventilation the patient was switched to pressure control. CVP was 2 and after receiving a total of 3 L of fluid and the CVP came up to 8 and the patient has been off pressors since 11:30 PM yesterday. Cardiac rhythm is sinus. The patient is completing albuterol and loading and the patient is currently on 0.5 mg/min. Echocardiogram was done and patient has an ejection fraction of 40 to 45%. The white cell count today is at 5 with a hemoglobin of 12 and a platelet count of 62. Chest x-ray findings are stable. Some atelectatic changes in lung base bilaterally. No antibiotic coverage at this point in time. Sputum is showing gram-negative bacillus and presumptive Staph aureus. 09/10/2023, I am seeing the patient for a follow-up. The patient remains encephalopathic. He grimaces to painful stimulation in all 4 extremities and is withdrawing to pain. Nevertheless, does not follow any commands. His mobility is less in his lower extremities compared to the upper extremities. No seizure activity has been noted. CAT scan of the brain was negative. EEG showed moderate to severe encephalopathy. Suspect hypoxic encephalopathy. Meanwhile, the patient remains intubated on mechanical ventilator. On today's evaluation, he is on no sedation. He is on pressure control mode of mechanical ventilation at rate of 20, pressure control of 15, inspiratory time 0.9 with an FiO2 of 35% and a PEEP of 5. Blood gases from today showed a pH of 7.45 with a pCO2 of 25 and a pO2 of 97. Chest x-ray findings are stable and there is no significant interval change and there is no definite acute process. Based on the positive sputum culture, the patient was started on IV cefepime. Sputum sample was positive for a combination of bacteria including E. coli, Staph aureus/MSSA and Streptococcus. He is afebrile. Hemodynamically stable and he is on no pressors. In fact, he has developed some hypochloremic hyponatremia. He remains on half-normal saline at rate of 100 cc an hour. BUN 64 with a creatinine of 1.46 and a sodium level at 152 and a chloride level is 128. Potassium is at 3.5. WBC count is at 4.7 with a hemoglobin of 1.4 and a platelet count of 49. The patient's blood sugar is at 281. The patient remains on Levemir insulin which is at 15 units and the patient is also on sliding scale coverage. The patient is sitting enteral feeding for nutritional support and the patient is on Glucerna at a rate of 31 cc an hour. On 09/11/2023, the patient is being seen for a follow-up. Opening of his eyes. Not following commands consistently. Remains on mechanical ventilator. Currently is on a pressure control mode with rate of 20, pressure of 50 cm of water, respiratory exam of 0.9, FiO2 35% with a PEEP of 5. Blood gas showed a pH of 7.44 with episodes of 32 and pO2 of 109. Chest x-ray findings are stable. Hemodynamically stable. No pressors. He is on no sedative medications for now. Afebrile. Remains on IV cefepime. White cell count is 7.4, hemoglobin is 11.5 and a platelet count of 59. Sodium is 155, potassium is at 4, chloride is 131, BUN is 51 with a creatinine 1.2. LFTs are stable, CPK is down to 214. The patient is running a low-grade fever. Remains on IV cefepime. Sputum culture was polymicrobial including E. coli, Streptococcus and MSSA. Further blood cultures have been sent. No pressors for now. He is currently on Levemir insulin and sliding scale insulin coverage. The patient is also on Glucerna for enteral feeding and nutritional support she is currently at goal at 54 cc an ho ur. 09/12/2023, I am seeing the patient for a follow-up. The patient is off sedation. The patient is awake and alert and the patient has been on a pressure support mode of mechanical ventilation throughout the night. The patient is currently on a PSV of 7 and a PEEP of 5. The patient is following simple commands. Blood gas from today shows a pH of 7.41 with a pCO2 of 37 and pO2 of 94. Chest x-ray showing a right lower lobe consolidation which could be an area of pneumonia. The patient is currently afebrile. The patient remains on IV cefepime. The tube feeds are currently on hold in anticipation for possible extubation today. Meanwhile, the patient's blood work shows a white cell count of 6.5, hemoglobin 10.7 and a platelet count of 59. Sodium is currently down to 151. BUN is 46 with a creatinine of 1.1. LFTs are normal. Renal function is normal. CPK is down to 81. No other significant events overnight. Hemodynamically stable. Cardiac rhythm is sinus. 09/13/2023, the patient is being seen for the follow-up. The patient was weaned off the mechanical ventilator and the patient was extubated. On today's evaluation, he is alert and awake and is communicating. Nevertheless, he does have some confusion. He is alert and oriented x 1. No signs of respiratory distress. Continues to have a cough and nasal congestion and a chest x-ray from today is essentially unchanged and the patient has stable patchy opacities in the lung base bilaterally. Remains on IV cefepime. Hemodynamically stable. Sodium level is improving and currently is down to 149. Blood sugars under adequate control and the patient is using Levemir insulin 30 units in addition to NovoLog 4 times a day and a sliding scale coverage. Renal function has normalized. No pressors for now. No fever. Remains on D5 water at the rate of 100 cc an hour. 09/14/2023, the patient is being seen for a follow-up. The patient had transferred out of the intensive care unit yesterday. He is alert and com municating. There is some limited baseline confusion. No agitation. No significant respiratory distress. Awaiting labs from today. The patient remains on D5 water. The patient remains on Levemir insulin. Recovered from his DKA. He is able to swallow and he has been provided a diet. No other significant events overnight. The patient remains on IV cefepime regarding bilateral pneumonia. The patient remains on DuoNeb nebulized treatments [id number]. Remains on anticoagulation with Eliquis. Remains on Levemir insulin 15 units at bedtime and NovoLog sliding scale coverage. Remains on IV Protonix. Objective - Vital Signs Vital signs: Vital Signs Temp 97.2 F L 09/14/23 07:45 Pulse 86 09/14/23 08:06 Resp 16 09/14/23 07:45 BP 172/77 09/14/23 07:45 Pulse Ox 94 L 09/14/23 07:45 FiO2 35 09/12/23 09:07 Intake & Output 09/13/23 09/14/23 09/14/23 18:59 06:59 18:59 Intake Total 1077 800 Output Total 2310 1100 Balance -1233 -300 Intake: IV 839 800 0.9 sodium chloride 30 Cefepime 2 gm In Sodium 100 Chloride 0.9% 100 ml @ 25 mls/hr IVPB Q12HR [facility] Rx #:[id number] Cefepime 2 gm In Sodium 100 Chloride 0.9% 100 ml @ 25 mls/hr IVPB Q8HR [facility] Rx# :[id number] Dextrose 5% in Water 1, 700 700 000 ml @ 100 mls/hr IV . Q10H [facility] Rx#:[id number] Pressure Bag 9 Oral 238 Output: Urine 2310 1100 Other: Voiding Method Indwelling Catheter Indwelling Catheter ABP, PAP, CO, CI - Last Documented Arterial Blood Pressure 121/60 - Exam GENERAL EXAM: Following simple commands, awake, extubated, currently on 2 L HEAD: Normocephalic and atraumatic EYES: Sluggish reaction of pupils, equal size. NOSE: Clear with pink turbinates. THROAT: No erythema or exudates. Dry mucous membranes. NECK: No masses, no JVD. CHEST: No chest wall deformity. LUNGS: Equal air entry with no crackles, wheeze, rhonchi or dullness. CVS: S1 and S2 normal with no soft systolic murmur, regular rhythm. No extra heart sounds ABDOMEN: Abdomen flat, active bowel sounds, no hepatosplenomegaly, no guarding or rigidity. SPINE: No scoliosis or deformity SKIN: No rashes CENTRAL NERVOUS SYSTEM: Alert and oriented x 1, confused, no focal neurological deficit, no neck stiffness, following simple commands. No agitation. EXTREMITIES: There is no peripheral edema, clubbing, or cyanosis. Peripheral pulses are intact. Remote appearing bilateral great toe amputations. - Labs CBC & Chem 7: 09/13/23 03:11 09/13/23 03:11 Labs: Abnormal Lab Results - Last 24 Hours (Table) 09/13/23 09/13/23 09/13/23 Range/Units 13:44 17:18 20:42 POC Glucose (mg/dL) 116 H 138 H 198 H (70-110) mg/dL 09/13/23 09/14/23 Range/Units 23:57 06:03 POC Glucose (mg/dL) 146 H 142 H (70-110) mg/dL Microbiology - Last 24 Hours (Table) 09/11/23 10:16 Blood Culture - Preliminary Blood 09/07/23 23:15 Blood Culture - Final Blood Assessment and Plan Assessment: Acute diabetic ketoacidosis, recovered with closure of the anion gap, recovered, currently on Levemir insulin 10 units daily Hyperchloremic hypernatremia, improving Hypotension and shock, hypovolemic in nature patient was aggressively Treated with IV fluids. The patient's hemodynamics is stable Acute respiratory failure with lower lobe patchy infiltrate/pneumonia. Polymicrobial growth on the sputum culture and the patient remains on IV cefepime. Currently afebrile Fever, currently on IV cefepime and patient has developed a right lower lobe pulm infiltrate. Currently afebrile. Encephalopathy, rule out anoxic encephalopathy. CAT scan of the brain does not show any not showing any acute abnormalities. EEG showed no evidence of any seizure there is diffuse encephalopathy. Neurologically, the patient is following commands, does have some underlying delirium/confusion. Overall mental status is improved and the patient is communicating at this point in time. Acute rhabdomyolysis, CPK level were elevated. Awaiting follow-up CPK levels, and the levels were essentially downtrending Acute kidney injury, secondary to combination of above, renal function is improving Elevated troponins, likely supply/demand mismatch History of type 2 diabetes mellitus History of bilateral great toe amputations History of hyperlipidemia History of coronary artery disease with previous PCI/stent History of seizure disorder, no seizure activity noted Plan: The patient is extubated to nasal cannula currently on 2 L and chest x-ray findings are stable Continue Levemir insulin 15 units along with NovoLog and a sliding scale coverage Discontinue D5 water Monitor sodium level, levels are improving, awaiting labs from today Swallow evaluation PT consultation Monitor electrolytes and replace per protocol Patient is currently off pressors Echocardiogram was noted and the patient has impaired LV function with an ejec tion fraction of 40 to 45% Continue IV cefepime 2 g every 12 hours, pending further cultures Currently afebrile Neurology consultation appreciated Monitor CPK levels improving and downtrending Currently on the medical floor.
[2023-09-14 13:04] LABS: HCT 33.5 % (39.0-53.0); HGB 10.7 gm/dL (13.0-17.5); Hypochromasia Slight; MCH 30.9 pg (25.0-35.0); MCHC 32.1 g/dL (31.0-37.0); MCV 96.4 fL (80.0-100.0); Mean Platelet Volume 11.1; Platelet Count 109 k/uL (150-450); RBC 3.48 m/uL (4.30-5.90); WBC 7.9 k/uL (3.8-10.6)
--- NOTE | 2023-09-14 13:13 | P.PN ---
Subjective Progress Note Date: 09/14/23 HISTORY OF PRESENTING ILLNESS 67-year-old male with past medical history of type 2 diabetes, prior to ampu tations, dyslipidemia, CAD s/p PCI, seizure disorder. Patient is not able to provide any history as he is intubated and is on ventilator support. Patient was transferred from [facility] yesterday. Apparently patient was found unresponsive by patient's partner and last well-known time was 24 hours before. Initial presentation was consistent with DKA and rhabdomyolysis. On admission his labs showed WBC 8.8, hemoglobin 14.5, BUN 134, creatinine 4.29, glucose 91, lactate 1.1. CPK 882, troponin 0.08. BNP 2720. ECG showed normal sinus rhythm with nonspecific interventricular conduction delay. Repeat labs showed CPK increased to 1068. TSH 1.3. 09/09/2023 Patient maintained on ventilator support. He is off pressors. His echocardiogram showed an EF of 40 to 45%, Hemoglobin 12, platelet count 62. On 09/08/2023 patient was noticed to go into atrial fibrillation with RVR. For this he was started on IV amiodarone drip. Currently patient is in sinus rhythm. Good urine output, kidney function is improving, creatinine 1.9 today. 06/28/2023 Patient is seen and examined at bedside this a.m. He continues to be on ventilator support. BP 127/52, heart rate 85, WBC count 7.4, hemoglobin 11.5 Sodium 155, chloride 131, BUN 51, creatinine 1.26. On admission creatinine was 4.2 Patient continues to be on broad-spectrum antibiotic 09/12/2023 Patient was extubated today. BP 143/81, heart rate 87 bpm, continues to be in sinus rhythm. Hemoglobin 10.7, creatinine 1.25, sodium 151, chloride 126. Chest x-ray shows mild congestion in bilateral lower lung thomas. Platelets at 59 September 13, 2023 Patient was extubated 09/12/2023. Hemodynamically stable, currently in sinus rhythm. Kidney function is improving. Does appear mildly volume overloaded. Platelets have improved to 90. Right 09/27/2023 Patient is hemodynamically stable, SBP around 140s, sinus rhythm on telemetry. Good urine output. PHYSICAL EXAMINATION Vital signs reviewed. Head: Normocephalic. Eyes: Sclerae nonicteric. Neck: Brisk carotid upstroke, no jugular venous distention. Lungs: Clear to auscultation. Heart: Regular rate and rhythm, S1-S2, no S3, no murmur or rub. Abdomen: Soft nontender, positive bowel sounds. Extremities: No edema, intact distal pulses. Neuro: Alert, oritented, no focal deficits. Detailed neuro exam was not performed. 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 Less likely ACS Thrombocytopenia PAD with prior history of bilateral great toe amputation CAD s/p PCI Nonspecific IVCD on ECG Prior history of seizure disorder Obesity PLAN Continue supportive care for DKA, rhabdomyolysis and respiratory failure management as per ICU team Recommend aspirin 81 mg, Lipitor 40 mg Start Eliquis 5 mg twice daily for atrial fibrillation now that platelets are at 90. Continue to monitor platelet count Started Farxiga and losartan 25 mg daily for GDMT amiodarone 400 mg BID until 09/15/2023, thereafter reduce dose Patient's mild troponin elevation is most likely due to combination of poor renal clearance, DKA and abnormalities. Consider Ischemic evaluation on outpatient basis. Objective - Vital Signs Vital signs: Vital Signs Temp 97.2 F L 09/14/23 07:45 Pulse 86 09/14/23 11:54 Resp 16 09/14/23 11:24 BP 149/70 09/14/23 11:24 Pulse Ox 94 L 09/14/23 11:24 FiO2 35 09/12/23 09:07 Intake & Output 09/13/23 09/14/23 09/14/23 18:59 06:59 18:59 Intake Total 1077 800 180 Output Total 2310 1100 450 Balance -1233 -300 -270 Intake: IV 839 800 0.9 sodium chloride 30 Cefepime 2 gm In Sodium 100 Chloride 0.9% 100 ml @ 25 mls/hr IVPB Q12HR [facility] Rx #:[id number] Cefepime 2 gm In Sodium 100 Chloride 0.9% 100 ml @ 25 mls/hr IVPB Q8HR [facility] Rx# :[id number] Dextrose 5% in Water 1, 700 700 000 ml @ 100 mls/hr IV . Q10H [facility] Rx#:[id number] Pressure Bag 9 Oral 238 180 Output: Urine 2310 1100 450 Other: Voiding Method Indwelling Catheter Indwelling Catheter Indwelling Catheter # Bowel Movements 1 ABP, PAP, CO, CI - Last Documented Arterial Blood Pressure 121/60 - Labs CBC & Chem 7: 09/14/23 12:18 09/13/23 03:11 Labs: Abnormal Lab Results - Last 24 Hours (Table) 09/13/23 09/13/23 09/13/23 Range/Units 13:44 17:18 20:42 RBC (4.30-5.90) m/uL Hgb (13.0-17.5) gm/dL Hct (39.0-53.0) % Plt Count (150-450) k/uL POC Glucose (mg/dL) 116 H 138 H 198 H (70-110) mg/dL 09/13/23 09/14/23 09/14/23 Range/Units 23:57 06:03 11:23 RBC (4.30-5.90) m/uL Hgb (13.0-17.5) gm/dL Hct (39.0-53.0) % Plt Count (150-450) k/uL POC Glucose (mg/dL) 146 H 142 H 225 H (70-110) mg/dL 09/14/23 Range/Units 12:18 RBC 3.48 L (4.30-5.90) m/uL Hgb 10.7 L (13.0-17.5) gm/dL Hct 33.5 L (39.0-53.0) % Plt Count 109 L (150-450) k/uL POC Glucose (mg/dL) (70-110) mg/dL Microbiology - Last 24 Hours (Table) 09/11/23 10:16 Blood Culture - Preliminary Blood 09/07/23 23:15 Blood Culture - Final Blood
[2023-09-14 13:16] LABS: African American GFR (CKD) >90 (>60 ml/min/1.73 sqM); Anion Gap 3 mmol/L; Blood Urea Nitrogen 24 mg/dL (9-20); Calcium 7.2 mg/dL (8.4-10.2); Carbon Dioxide 23 mmol/L (22-30); Chloride 114 mmol/L (98-107); Glucose 196 mg/dL (74-99); Non-African American GFR(CKD) >90 (>60 ml/min/1.73 sqM); Sodium 140 mmol/L (137-145)
--- NOTE | 2023-09-14 13:16 | P.PN ---
Subjective Progress Note Date: 09/14/23 Romel Malin is a 67-year-old male with past medical history significant for diabetes mellitus, prior toe amputations, hyperlipidemia, coronary artery disease with previous stents, and seizure disorder. He is currently intubated to the mechanical ventilator, unresponsive without any sedation, unable to provide any information. Patient was transferred from [facility] late last night. Apparently, found unresponsive by his girlfriend, and last known well was 24 hours prior. Patient was intubated by EMS on arrival and triaged to [facility]. Initial presentation was consistent with DKA. Subsequently, the patient was transferred to [facility]. Patient is currently in trauma bay 1, he is intubated mechanical ventilator. Chest x-ray on arrival to our facility shows the endotracheal tube in satisfactory position approximately 4 cm above the mahesh. There is an orogastric tube that should be advanced. Right IJ central line catheter appears to terminate at the Cavo atrial junction. No focal infiltrates or evidence of pneumonia. Current ventilator settings are assist-control, respiratory rate 14, tidal volume 500, FiO2 35%, PEEP of 5. He is breathing slightly above set rate. Not on any sedation. Remains unresponsive even to deep painful stimuli. CT of the brain did not show any acute intracranial hemorrhage or mass effect. ABG is consistent with profound metabolic acidosis, with a PaO2 of 204, pCO2 of 25, pH of 7.04. Patient has been given a total of 2 A of bicarb. He is hypotensive and in a shock state, he has been fluid resuscitated with at least 2.5 L crystalloid fluid. No insulin infusion is currently ordered. He remains profoundly hypotensive, and has been started on norepinephrine which is currently infusing at 0.06 mcg/kg/min. CBC: WBC count 8.8, hemoglobin 14.5, hematocrit 50.3, platelets 136. CMP: Sodium 143, potassium 5.2, chloride 115, serum bicarb less than 5, anion gap unmeasurable, BUN 134, creatinine 4.29, gluc ose 910. Lactic 1.1. LFTs not elevated. Total bilirubin 0.7. Ammonia less than 9. CPK was 882. Troponin 0.084. NT BNP 2720. EKG shows normal sinus rhythm and is nondiagnostic for acute ischemia. Urinalysis positive for glucose and ketones. Urine toxicology screen at outside facility was essentially negative. Serum alcohol less than 10. Patient will be admitted to the intensive care unit once bed available. 09/09/2023 Patient grimaces to pain but does not follow commands. He remains off sedatives. Suspect to be hypoxic encephalopathy. Neurolgy was consulted and advises mentation is likely due to metabolic injury. CT scan of the brain yesterday that showed no midline shift or swelling. Patient anion gap has closed with an anion gap of 6, bicarb 17. Potassium at 3.3. Replacement ongoing per protocol. Blood sugars 879. Insulin IV will be discontinued and will transiotion to Insulin detemir SQ. Patient began to show increased breathing on the mechanical ventilator and was switched to pressure control rate of 20, tidal volume of 500, FiO2 of 35%, and a PEEP of 5. ABG showed pH of 7.4 with a pCO2 of 29 and pO2 of 103. WBC is at 5 with a hemoglobin of 12 and a platelet count of 62. Heparin SQ discontinued. Chest x-ray show atelectatic changes in lung base bilaterally. Sputum is showing 09/09 Patient still encephaolpathic but now opens eyes to command, moves arms independently, only grimaces to pain. Patient still intubated and comfortable on current vent settings. Still not on any sedation. Potassium replacement on going as per protocol but on the uptrend latest at 3.5 . Glucose at the 211 and sustaining at levels of 200s. On Glucerna 1.5 rate at 30cc/hr via enteral feeding. Insulin increased to 25 units and on sliding scale coverage. Sputum culture grew gram-negative bacillus and presumptive Staph aureus. started on IV Cefepime. WBC 4.7, hemoglobin 11.4, hematocrit 35 and platelet count 49. Blood pressures increase at 140-160/60-80. Started on IV hydralazine 10mg PRN. Afebrile on assessment. Sodium elevated trend at 152. 0.45% normal saline discontinued and start on free water through OG tube. 09/10. Patient seen and examined. Continues to be intubated at the bedside, all questions answered 09/11. Patient seen and examined. Patient extubated this morning, following commands, currently on oxygen via nasal cannula 09/12. Patient seen and examined. Labs done this morning showed WBC 7.6, hemoglobin 10.8, platelet count 90, sodium 149, potassium 3.6, BUN 36, creatinine 1.06. Patient getting chest PT /. Patient seen and examined. Currently on thickened liquid diet. Speech evaluation pending. Decrease fluids. REVIEW OF SYSTEMS: Denies any chest pain. Denies nausea or vomiting PHYSICAL EXAMINATION: GENERAL: The patient is alert HEENT: Pupils are round and equally reacting to light. EOMI. No scleral icterus. No conjunctival pallor. Normocephalic, atraumatic. No pharyngeal erythema. No thyromegaly. CARDIOVASCULAR: S1 and S2 present. No murmurs, rubs, or gallops. PULMONARY: Chest is clear to auscultation, no wheezing or crackles. ABDOMEN: Soft, nontender, nondistended, normoactive bowel sounds. No palpable organomegaly. MUSCULOSKELETAL: No joint swelling or deformity. EXTREMITIES: No cyanosis, clubbing, or pedal edema. NEUROLOGICAL: Alert, following commands SKIN: No rashes. Assessment and plan Acute diabetic ketoacidosis, recovered with closure of the anion gap. Severe anion gap metabolic acidosis Hypotension and shock Acute hypoxemic respiratory failure s/p endotracheal intubation. Bacterial pneumonia, sputum positive for E. coli, Streptococcus and MSSA Encephalopathy, rule out anoxic encephalopathy. Acute rhabdomyolysis Acute kidney injury, secondary to combination of above, renal function is improving Elevated troponins caused by increased myocardial damnd history of type 2 diabetes mellitus History of bilateral great toe amputations History of hyperlipidemia History of coronary artery disease with previous PCI/stent History of seizure disorder, no seizure activity noted Plan: Monitor vital sign Monitor CBC Monitor CMP Continue ox supplementation aggressive bronchopulmonary hygiene Continue chest physical therapy Monitor blood sugar levels, continue current insulin regimen Continue IV cefepime 2 g every 12 hours, pending further cultures Continue amiodarone, Eliquis Continue tube feeding Critical care following ID following Neurology following, EEG done was negative for any seizures, neurology recommended keeping patient on Keppra, continue aspirin Lipitor Labs and medication were reviewed.. Continue same treatment. Continue with symptomatic treatment. Resume home medication. Monitor labs and vitals. DVT and GI prophylaxis. Further recommendations as per clinical course of the patient Dictation was produced using [employer] dictation software. please excuse any grammatical, word or spelling errors. Objective - Vital Signs Vital signs: Vital Signs Temp 97.2 F L 09/14/23 07:45 Pulse 86 09/14/23 08:06 Resp 16 09/14/23 08:00 BP 172/77 09/14/23 07:45 Pulse Ox 94 L 09/14/23 07:45 FiO2 35 09/12/23 09:07 Intake & Output 09/13/23 09/14/23 09/14/23 18:59 06:59 18:59 Intake Total 1077 800 Output Total 2310 1100 Balance -1233 -300 Intake: IV 839 800 0.9 sodium chloride 30 Cefepime 2 gm In Sodium 100 Chloride 0.9% 100 ml @ 25 mls/hr IVPB Q12HR [facility] Rx #:[id number] Cefepime 2 gm In Sodium 100 Chloride 0.9% 100 ml @ 25 mls/hr IVPB Q8HR [facility] Rx# :[id number] Dextrose 5% in Water 1, 700 700 000 ml @ 100 mls/hr IV . Q10H [facility] Rx#:[id number] Pressure Bag 9 Oral 238 Output: Urine 2310 1100 Other: Voiding Method Indwelling Catheter Indwelling Catheter Indwelling Catheter ABP, PAP, CO, CI - Last Documented Arterial Blood Pressure 121/60 - Labs CBC & Chem 7: 09/14/23 12:18 09/13/23 03:11 Labs: Abnormal Lab Results - Last 24 Hours (Table) 09/13/23 09/13/23 09/13/23 Range/Units 13:44 17:18 20:42 POC Glucose (mg/dL) 116 H 138 H 198 H (70-110) mg/dL 09/13/23 09/14/23 Range/Units 23:57 06:03 POC Glucose (mg/dL) 146 H 142 H (70-110) mg/dL Microbiology - Last 24 Hours (Table) 09/11/23 10:16 Blood Culture - Preliminary Blood 09/07/23 23:15 Blood Culture - Final Blood
[2023-09-14 13:22] LABS: Potassium 4.3 mmol/L (3.5-5.1)
--- NOTE | 2023-09-14 14:47 | P.PN ---
Subjective Progress Note Date: 09/14/23 Principal diagnosis: Reason for follow-up is fever Patient is a 67-year-old male with a past medical history significant for coronary disease diabetes mellitus [place] seizure disorder history of diabetic foot infection status post bilateral big toe amputation presenting to the hospital with unresponsiveness patient was initially hypothermic subsequently started spiking fever initial workup with a chest x-ray and urine was negative. On today's evaluation that is 09/14/2023, patient has been afebrile, patient is breathing comfortably and is currently on 2 L current oxygen, patient denies having any worsening cough no chest pain shortness of breath, patient denies thom sea vomiting or diarrhea and no abdominal pain. Patient white count is 7.8, creatinine 0.8 blood pressure has been negative Objective - Vital Signs Vital signs: Vital Signs Temp 97.2 F L 09/14/23 07:45 Pulse 74 09/14/23 14:00 Resp 16 09/14/23 14:00 BP 149/70 09/14/23 11:24 Pulse Ox 94 L 09/14/23 11:24 FiO2 35 09/12/23 09:07 Intake & Output 09/13/23 09/14/23 09/14/23 18:59 06:59 18:59 Intake Total 1077 800 180 Output Total 2310 1100 450 Balance -1233 -300 -270 Intake: IV 839 800 0.9 sodium chloride 30 Cefepime 2 gm In Sodium 100 Chloride 0.9% 100 ml @ 25 mls/hr IVPB Q12HR [facility] Rx #:[id number] Cefepime 2 gm In Sodium 100 Chloride 0.9% 100 ml @ 25 mls/hr IVPB Q8HR [facility] Rx# :[id number] Dextrose 5% in Water 1, 700 700 000 ml @ 100 mls/hr IV . Q10H [facility] Rx#:[id number] Pressure Bag 9 Oral 238 180 Output: Urine 2310 1100 450 Other: Voiding Method Indwelling Catheter Indwelling Catheter Indwelling Catheter # Bowel Movements 1 ABP, PAP, CO, CI - Last Documented Arterial Blood Pressure 121/60 - Exam GENERAL DESCRIPTION: An elderly male lying in bed in no distress RESPIRATORY SYSTEM: Unlabored breathing , decreased breath sounds at bases HEART: S1 S2 regular rate and rhythm , ABDOMEN: Soft , no tenderness EXTREMITIES: No edema feet - Labs CBC & Chem 7: 09/14/23 12:18 09/14/23 12:18 Labs: Abnormal Lab Results - Last 24 Hours (Table) 09/13/23 09/13/23 09/13/23 Range/Units 17:18 20:42 23:57 RBC (4.30-5.90) m/uL Hgb (13.0-17.5) gm/dL Hct (39.0-53.0) % Plt Count (150-450) k/uL Chloride (98-107) mmol/L BUN (9-20) mg/dL Glucose (74-99) mg/dL POC Glucose (mg/dL) 138 H 198 H 146 H (70-110) mg/dL Calcium (8.4-10.2) mg/dL 09/14/23 09/14/23 09/14/23 Range/Units 06:03 11:23 12:18 RBC 3.48 L (4.30-5.90) m/uL Hgb 10.7 L (13.0-17.5) gm/dL Hct 33.5 L (39.0-53.0) % Plt Count 109 L (150-450) k/uL Chloride (98-107) mmol/L BUN (9-20) mg/dL Glucose (74-99) mg/dL POC Glucose (mg/dL) 142 H 225 H (70-110) mg/dL Calcium (8.4-10.2) mg/dL 09/14/23 Range/Units 12:18 RBC (4.30-5.90) m/uL Hgb (13.0-17.5) gm/dL Hct (39.0-53.0) % Plt Count (150-450) k/uL Chloride 114 H (98-107) mmol/L BUN 24 H (9-20) mg/dL Glucose 196 H (74-99) mg/dL POC Glucose (mg/dL) (70-110) mg/dL Calcium 7.2 L (8.4-10.2) mg/dL Microbiology - Last 24 Hours (Table) 09/11/23 10:16 Blood Culture - Preliminary Blood 09/07/23 23:15 Blood Culture - Final Blood Assessment and Plan (1) Fever Current Visit: Yes Status: Acute Code(s): R50.9 - FEVER, UNSPECIFIED SNOMED Code(s): 133155254 Plan: 1patient presented to the hospital unresponsive 4 days ago with initial presentation to the outside facility patient was initially hypothermic now with fever patient initial workup including a chest x-ray that has been negative urine has been negative abdominal soft on clinical examination, white count remains to be normal blood culture negative question of viral syndrome versus central source of this fever 2-patient did have a negative influenza RSV and COVID testing, patient did have improvement in his mentation and fever pattern has improved patient has refused LP 3-patient to continue with cefepime in view of clinical improvement and hopefully transition to oral antibiotic on discharge Dictation was produced using [employer] dictation software. please excuse any grammatical, word or spelling errors. Time with Patient: Less than 30
[2023-09-14 16:18] LABS: Glucose,Whole Blood 203 mg/dL (70-110)
[2023-09-14] MEDS: DAPAGLIFLOZIN PROPANEDIOL 10 MG TABLET PO SCH (16:33)
[2023-09-14 20:31] LABS: Glucose,Whole Blood 202 mg/dL (70-110)
[2023-09-14] MEDS: INSULIN DETEMIR (LEVEMIR) 100 UNIT/ML SYR SQ SCH (20:40)
[2023-09-15] MEDS: HYDROcodone/APAP 5-325MG 1 EACH TAB PO PRN (04:14)
[2023-09-15 05:57] LABS: Glucose,Whole Blood 132 mg/dL (70-110)
[2023-09-15 11:25] LABS: Glucose,Whole Blood 294 mg/dL (70-110)
--- NOTE | 2023-09-15 12:02 | P.PN ---
Subjective Progress Note Date: 09/15/23 Principal diagnosis: Reason for follow-up is fever Patient is a 67-year-old male with a past medical history significant for coronary disease diabetes mellitus [place] seizure disorder history of diabetic foot infection status post bilateral big toe amputation presenting to the hospital with unresponsiveness patient was initially hypothermic subsequently started spiking fever initial workup with a chest x-ray and urine was negative. On today's evaluation that is 09/15/2023, Patient is afebrile this morning and denies any chills, patient mention breathing comfortably and is currently on 2 L nasal oxygen, patient denies any chest pain occasional cough patient denies any abdominal pain no diarrhea no nausea no vomiting has been complaining of sores on the lower back and some discomfort to the lower back area. No new labs on the chart blood culture has been negative Objective - Vital Signs Vital signs: Vital Signs Temp 97.6 F 09/15/23 08:00 Pulse 78 09/15/23 11:37 Resp 15 09/15/23 11:28 BP 166/78 09/15/23 11:28 Pulse Ox 93 L 09/15/23 11:28 FiO2 35 09/12/23 09:07 Intake & Output 09/14/23 09/15/23 09/15/23 18:59 06:59 18:59 Intake Total 420 118 Output Total 1100 600 Balance -680 -482 Intake: Oral 420 118 Output: Urine 1100 600 Other: Voiding Method Indwelling Catheter Indwelling Catheter Indwelling Catheter # Bowel Movements 1 1 1 ABP, PAP, CO, CI - Last Documented Arterial Blood Pressure 121/60 - Exam GENERAL DESCRIPTION: An elderly male lying in bed in no distress RESPIRATORY SYSTEM: Unlabored breathing , decreased breath sounds at bases HEART: S1 S2 regular rate and rhythm , ABDOMEN: Soft , no tenderness EXTREMITIES: No edema feet - Labs CBC & Chem 7: 09/14/23 12:18 09/14/23 12:18 Labs: Abnormal Lab Results - Last 24 Hours (Table) 09/14/23 09/14/23 09/14/23 Range/Units 12:18 12:18 16:17 RBC 3.48 L (4.30-5.90) m/uL Hgb 10.7 L (13.0-17.5) gm/dL Hct 33.5 L (39.0-53.0) % Plt Count 109 L (150-450) k/uL Chloride 114 H (98-107) mmol/L BUN 24 H (9-20) mg/dL Glucose 196 H (74-99) mg/dL POC Glucose (mg/dL) 203 H (70-110) mg/dL Calcium 7.2 L (8.4-10.2) mg/dL 09/14/23 09/15/23 09/15/23 Range/Units 20:28 05:54 11:23 RBC (4.30-5.90) m/uL Hgb (13.0-17.5) gm/dL Hct (39.0-53.0) % Plt Count (150-450) k/uL Chloride (98-107) mmol/L BUN (9-20) mg/dL Glucose (74-99) mg/dL POC Glucose (mg/dL) 202 H 132 H 294 H (70-110) mg/dL Calcium (8.4-10.2) mg/dL Microbiology - Last 24 Hours (Table) 09/11/23 10:16 Blood Culture - Preliminary Blood Assessment and Plan (1) Fever Current Visit: Yes Status: Acute Code(s): R50.9 - FEVER, UNSPECIFIED SNOMED Code(s): 824011340 Plan: 1patient presented to the hospital unresponsive 4 days ago with initial presentation to the outside facility patient was initially hypothermic now with fever patient initial workup including a chest x-ray that has been negative urine has been negative abdominal soft on clinical examination, white count remains to be normal blood culture negative question of viral syndrome versus central source of this fever 2-patient did have a negative influenza RSV and COVID testing, patient did have improvement in his mentation and fever pattern has improved patient has refused LP 3-patient has shown clinical improvement to continue with cefepime while inpatient will transition to oral antibiotics on discharge Dictation was produced using [employer] dictation software. please excuse any grammatical, word or spelling errors. Time with Patient: Less than 30
--- NOTE | 2023-09-15 13:51 | P.PN ---
Subjective HISTORY OF PRESENT ILLNESS: 67-year-old male with past medical history of type 2 diabetes, prior to amputations, dyslipidemia, CAD s/p PCI, seizure disorder. Patient is not able to provide any history as he is intubated and is on ventilator support. Patient was transferred from [facility] yesterday. Apparently patient was found unresponsive by patient's partner and last well-known time was 24 hours before. Initial presentation was consistent with DKA and rhabdomyolysis. On admission his labs showed WBC 8.8, hemoglobin 14.5, BUN 134, creatinine 4.29, glucose 91, lactate 1.1. CPK 882, troponin 0.08. BNP 2720. ECG showed normal sinus rhythm with nonspecific interventricular conduction delay. Repeat labs showed CPK increased to 1068. TSH 1.3. 09/09/2023 Patient maintained on ventilator support. He is off pressors. His echocardiogram showed an EF of 40 to 45%, Hemoglobin 12, platelet count 62. On 09/08/2023 patient was noticed to go into atrial fibrillation with RVR. For this he was started on IV amiodarone drip. Geoffrey khan patient is in sinus rhythm. Good urine output, kidney function is improving, creatinine 1.9 today. 06/28/2023 Patient is seen and examined at bedside this a.m. He continues to be on ventila tor support. BP 127/52, heart rate 85, WBC count 7.4, hemoglobin 11.5 Sodium 155, chloride 131, BUN 51, creatinine 1.26. On admission creatinine was 4.2 Patient continues to be on broad-spectrum antibiotic 09/12/2023 Patient was extubated today. BP 143/81, heart rate 87 bpm, continues to be in sinus rhythm. Hemoglobin 10.7, creatinine 1.25, sodium 151, chloride 126. Chest x-ray shows mild congestion in bilateral lower lung thomas. Platelets at 59 September 13, 2023 Patient was extubated 09/12/2023. Hemodynamically stable, currently in sinus rhythm. Kidney function is improving. Does appear mildly volume overloaded. Platelets have improved to 90. 09/14/2023 Patient is hemodynamically stable, SBP around 140s, sinus rhythm on telemetry. Good urine output. 09/15/2023 Patient examined this morning at bedside. Patient currently denies chest pain or pressure. He denies shortness of breath. Vital signs are stable. Telemetry reveals sinus mechanism. PHYSICAL EXAM: VITAL SIGNS: Reviewed. GENERAL: Well-developed in no acute distress. NECK: Supple. No JVD or thyromegaly LUNGS: Respirations even and unlabored. Lungs essentially clear to auscultation bilaterally. HEART: Regular rate and rhythm. S1 and S2 heard. EXTREMITIES: Normal range of motion. No clubbing or cyanosis. Peripheral pulses intact. No lower extremity edema ASSESSMENT: Ventilator dependent respiratory failure, resolved Paroxysmal atrial fibrillation, currently maintaining sinus mechanism Chronic heart failure with reduced EF, 40% Acute diabetic ketoacidosis Metabolic encephalopathy Severe anion gap metabolic acidosis Acute rhabdomyolysis Acute kidney injury Elevated troponin, type II IN secondary to MARIANO, rhabdomyolysis, and respiratory failure, no evidence of acute coronary syndrome Peripheral arterial disease Coronary artery disease with previous stenting History of seizure disorder PLAN: Continue continue current cardiac medications Continue telemetry monitoring Patient is currently stable from a cardiac standpoint Consider outpatient ischemic evaluation Nurse practitioner note has been reviewed by physician. Signing provider agrees with the documented findings, assessment, and plan of care documented by FINISHER HAND as a scribe. Objective - Vital Signs Vital signs: Vital Signs Temp 97.6 F 09/15/23 08:00 Pulse 78 09/15/23 11:37 Resp 15 09/15/23 11:28 BP 166/78 09/15/23 11:28 Pulse Ox 93 L 09/15/23 11:28 FiO2 35 09/12/23 09:07 Intake & Output 09/14/23 09/15/23 09/15/23 18:59 06:59 18:59 Intake Total 420 118 Output Total 1100 600 Balance -680 -482 Intake: Oral 420 118 Output: Urine 1100 600 Other: Voiding Method Indwelling Catheter Indwelling Catheter Indwelling Catheter # Bowel Movements 1 1 1 ABP, PAP, CO, CI - Last Documented Arterial Blood Pressure 121/60 - Labs CBC & Chem 7: 09/14/23 12:18 09/14/23 12:18 Labs: Abnormal Lab Results - Last 24 Hours (Table) 09/14/23 09/14/23 09/15/23 Range/Units 16:17 20:28 05:54 POC Glucose (mg/dL) 203 H 202 H 132 H (70-110) mg/dL 09/15/23 Range/Units 11:23 POC Glucose (mg/dL) 294 H (70-110) mg/dL Microbiology - Last 24 Hours (Table) 09/11/23 10:16 Blood Culture - Preliminary Blood
--- NOTE | 2023-09-15 14:23 | FL ---
EXAMINATION TYPE: FL barium swallow w video DATE OF EXAM: 09/15/2023 COMPARISON: NONE HISTORY: Failed bedside TECHNIQUE: Fluoroscopy. FINDINGS: Fluoroscopic guidance was provided for the procedure performed in conjunction with the [facility] pathology department. Please see complete report forthcoming from the Speech Pathology departmen t. Various consistencies from thin liquid to solids were administered. Fluoroscopy time 3 minutes 9 seconds. DAP: 628.07 Number of images: 0. No aspiration or penetration was evident. Patient did have episodes of coughing however, aspiration c ould not be identified during these episodes. Mild pooling was observed in the vallecula. There is discoordination through the oral pharynx for swallowing IMPRESSION: 1. No aspiration or penetration identified. 2. Poor bolus formation and transfer for swallowing 3. Small amount of vallecular pooling
--- NOTE | 2023-09-15 15:04 | P.PN ---
Subjective Progress Note Date: 09/15/23 Principal diagnosis: Acute diabetic ketoacidosis and acute left lower lobe pneumonia with polymicrobial growth on the sputum Patient is a 67-year-old male with past medical history significant for diabetes mellitus, prior toe amputations, hyperlipidemia, coronary artery disease with previous stents, and seizure disorder. He is currently intubated to the mechanical ventilator, unresponsive without any sedation, unable to provide any information. Patient was transferred from [facility] late last night. Apparently, found unresponsive by his girlfriend, and last known well was 24 hours prior. Patient was intubated by EMS on arrival and triaged to [facility]. Initial presentation was consistent with DKA. Subsequently, the patient was transferred to [facility]. Patient is currently in trauma bay 1, he is intubated mechanical ventilator. Chest x-ray on arrival to our facility shows the endotracheal tube in satisfactory position approximately 4 cm above the mahesh. There is an orogastric tube that should be advanced. Right IJ central line catheter appears to terminate at the Cavo atrial junction. No focal infiltrates or evidence of pneumonia. Current ventilator settings are assist-control, respiratory rate 14, tidal volume 500, FiO2 35%, PEEP of 5. He is breathing slightly above set rate. Not on any sedation. Remains unresponsive even to deep painful stimuli. CT of the brain did not show any acute intracranial hemorrhage or mass effect. ABG is consistent with profound metabolic acidosis, with a PaO2 of 204, pCO2 of 25, pH of 7.04. Patient has been given a total of 2 A of bicarb. He is hypotensive and in a shock state, he has been fluid resuscitated with at least 2.5 L crystalloid fluid. No insulin infusion is currently ordered. He remains profoundly hypotensive, and has been started on norepinephrine which is currently infusing at 0.06 mcg/kg/min. CBC: WBC count 8.8, hemoglobin 14.5, hematocrit 50.3, platelets 136. CMP: Sodium 143, potassium 5.2, chloride 115, serum bicarb less than 5, anion gap unmeasurable, BUN 134, creatinine 4.29, glucose 910. Lactic 1.1. LFTs not elevated. Total bilirubin 0.7. Ammonia less than 9. CPK was 882. Troponin 0.084. NT BNP 2720. EKG shows normal sinus rhythm and is nondiagnostic for acute ischemia. Urinalysis positive for glucose and ketones. Urine toxicology screen at outside facility was essentially negative. Serum alcohol less than 10. Patient will be admitted to the intensive care unit once bed available. Today's evaluation of 09/09/2023, the patient is being seen for a follow-up. The patient remains off sedatives. He is grimacing to painful stimulation. He did have a CAT scan of the brain yesterday that showed no acute abnormalities. Suspect a component of hypoxic encephalopathy as the patient apparently was hypoxic when the patient was picked up by the EMS. At this point in time, the patient is grimacing only to deep painful stimulation. Not following any commands yet. The patient has recovered from his anion gap metabolic acidosis related to DKA. The patient is currently on half-normal saline at rate of 100 cc an hour. Most recent blood work shows a gap of 6 with a serum bicarb of 17. Sodium levels at 151. Potassium level at 3.3 which is being replaced. Blood sugars 879. The patient remains on insulin drip and the patient will be transition to long-acting insulin. Remains on the mechanical ventilator assist- control mode at rate of 20, tidal volume of 500, FiO2 of 35% with a PEEP of 5. Blood gas showed a pH of 7.4 with a pCO2 of 29 and pO2 of 103. The patient was tachypneic volume second mechanical ventilation the patient was switched to pressure control. CVP was 2 and after receiving a total of 3 L of fluid and the CVP came up to 8 and the patient has been off pressors since 11:30 PM yesterday. Cardiac rhythm is sinus. The patient is completing albuterol and loading and the patient is currently on 0.5 mg/min. Echocardiogram was done and patient has an ejection fraction of 40 to 45%. The white cell count today is at 5 with a hemoglobin of 12 and a platelet count of 62. Chest x-ray findings are stable. Some atelectatic changes in lung base bilaterally. No antibiotic coverage at this point in time. Sputum is showing gram-negative bacillus and presumptive Staph aureus. 09/10/2023, I am seeing the patient for a follow-up. The patient remains encephalopathic. He grimaces to painful stimulation in all 4 extremities and is withdrawing to pain. Nevertheless, does not follow any commands. His mobility is less in his lower extremities compared to the upper extremities. No seizure activity has been noted. CAT scan of the brain was negative. EEG showed moderate to severe encephalopathy. Suspect hypoxic encephalopathy. Meanwhile, the patient remains intubated on mechanical ventilator. On today's evaluation, he is on no sedation. He is on pressure control mode of mechanical ventilation at rate of 20, pressure control of 15, inspiratory time 0.9 with an FiO2 of 35% and a PEEP of 5. Blood gases from today showed a pH of 7.45 with a pCO2 of 25 and a pO2 of 97. Chest x-ray findings are stable and there is no significant interval change and there is no definite acute process. Based on the positive sputum culture, the patient was started on IV cefepime. Sputum sample was positive for a combination of bacteria including E. coli, Staph aureus/MSSA and Streptococcus. He is afebrile. Hemodynamically stable and he is on no pressors. In fact, he has developed some hypochloremic hyponatremia. He remains on half-normal saline at rate of 100 cc an hour. BUN 64 with a creatinine of 1.46 and a sodium level at 152 and a chloride level is 128. Potassium is at 3.5. WBC count is at 4.7 with a hemoglobin of 1.4 and a platelet count of 49. The patient's blood sugar is at 281. The patient remains on Levemir insulin which is at 15 units and the patient is also on sliding scale coverage. The patient is sitting enteral feeding for nutritional support and the patient is on Glucerna at a rate of 31 cc an hour. On 09/11/2023, the patient is being seen for a follow-up. Opening of his eyes. Not following commands consistently. Remains on mechanical ventilator. Currently is on a pressure control mode with rate of 20, pressure of 50 cm of water, respiratory exam of 0.9, FiO2 35% with a PEEP of 5. Blood gas showed a pH of 7.44 with episodes of 32 and pO2 of 109. Chest x-ray findings are stable. Hemodynamically stable. No pressors. He is on no sedative medications for now. Afebrile. Remains on IV cefepime. White cell count is 7.4, hemoglobin is 11.5 and a platelet count of 59. Sodium is 155, potassium is at 4, chloride is 131, BUN is 51 with a creatinine 1.2. LFTs are stable, CPK is down to 214. The patient is running a low-grade fever. Remains on IV cefepime. Sputum culture was polymicrobial including E. coli, Streptococcus and MSSA. Further blood cultures have been sent. No pressors for now. He is currently on Levemir insulin and sliding scale insulin coverage. The patient is also on Glucerna for enteral feeding and nutritional support she is currently at goal at 54 cc an hour. 09/12/2023, I am seeing the patient for a follow-up. The patient is off sedation. The patient is awake and alert and the patient has been on a pressure support mode of mechanical ventilation throughout the night. The patient is currently on a PSV of 7 and a PEEP of 5. The patient is following simple commands. Blood gas from today shows a pH of 7.41 with a pCO2 of 37 and pO2 of 94. Chest x-ray showing a right lower lobe consolidation which could be an area of pneumonia. The patient is currently afebrile. The patient remains on IV cefepime. The tube feeds are currently on hold in anticipation for possible extubation today. Meanwhile, the patient's blood work shows a white cell count of 6.5, hemoglobin 10.7 and a platelet count of 59. Sodium is currently down to 151. BUN is 46 with a creatinine of 1.1. LFTs are normal. Renal function is normal. CPK is down to 81. No other significant events overnight. Hemodynamically stable. Cardiac rhythm is sinus. 09/13/2023, the patient is being seen for the follow-up. The patient was weaned off the mechanical ventilator and the patient was extubated. On today's evaluation, he is alert and awake and is communicating. Nevertheless, he does have some confusion. He is alert and oriented x 1. No signs of respiratory distress. Continues to have a cough and nasal congestion and a chest x-ray from today is essentially unchanged and the patient has stable patchy opacities in the lung base bilaterally. Remains on IV cefepime. Hemodynamically stable. Sodium level is improving and currently is down to 149. Blood sugars under adequate control and the patient is using Levemir insulin 30 units in addition to NovoLog 4 times a day and a sliding scale coverage. Renal function has normalized. No pressors for now. No fever. Remains on D5 water at the rate of 100 cc an hour. 09/14/2023, the patient is being seen for a follow-up. The patient had transferred out of the intensive care unit yesterday. He is alert and communicating. There is some limited baseline confusion. No agitation. No significant respiratory distress. Awaiting labs from today. The patient remains on D5 water. The patient remains on Levemir insulin. Recovered from his DKA. He is able to swallow and he has been provided a diet. No other significant events overnight. The patient remains on IV cefepime regarding bilateral pneumonia. The patient remains on DuoNeb nebulized treatments [id number]. Remains on anticoagulation with Eliquis. Remains on Levemir insulin 15 units at bedtime and NovoLog sliding scale coverage. Remains on IV Protonix. Patient was placed today on 09/15/2023, patient is being followed for his initial presentation with DKA and questionable left lower lobe pneumonia. Patient is doing well today, on 2 L nasal cannula, O2 saturation 93%. Does not seem to be in any form of distress. His sugar today is 294, his anion gap was nonexistent on the labs noted yesterday, and his BUN is 24 creatinine 0.82. Patient remains on amiodarone, Eliquis, he is also on cefepime and fark [employer]. In addition the patient is on DuoNeb updraft 4 times daily and as needed. And on Levemir insulin as well as insulin scale. Objective - Vital Signs Vital signs: Vital Signs Temp 97.6 F 09/15/23 08:00 Pulse 78 09/15/23 11:37 Resp 15 09/15/23 11:28 BP 166/78 09/15/23 11:28 Pulse Ox 93 L 09/15/23 11:28 FiO2 35 09/12/23 09:07 Intake & Output 09/14/23 09/15/23 09/15/23 18:59 06:59 18:59 Intake Total 420 238 Output Total 1100 600 Balance -680 -362 Intake: Oral 420 238 Output: Urine 1100 600 Other: Voiding Method Indwelling Catheter Indwelling Catheter Indwelling Catheter # Bowel Movements 1 1 1 ABP, PAP, CO, CI - Last Documented Arterial Blood Pressure 121/60 - Exam GENERAL EXAM: 67-year-old white male in no distress, on 2 L nasal cannula HEAD: Normocephalic and atraumatic EYES: Within normal NOSE: Clear with pink turbinates. THROAT: No erythema or exudates. Dry mucous membranes. NECK: No masses, no JVD. CHEST: No chest wall deformity. LUNGS: Diminished breath sounds at the bases no crackles rhonchi or wheezes CVS: S1 and S2 normal with no soft systolic murmur, regular rhythm. No extra heart sounds ABDOMEN: Abdomen flat, active bowel sounds, no hepatosplenomegaly, no guarding or rigidity. SKIN: No rashes CENTRAL NERVOUS SYSTEM: Slightly confused otherwise no gross neurological defi cits. EXTREMITIES: no clubbing, no cyanosis, trace of bipedal edema. - Labs CBC & Chem 7: 09/14/23 12:18 09/14/23 12:18 Labs: Abnormal Lab Results - Last 24 Hours (Table) 09/14/23 09/14/23 09/15/23 Range/Units 16:17 20:28 05:54 POC Glucose (mg/dL) 203 H 202 H 132 H (70-110) mg/dL 09/15/23 Range/Units 11:23 POC Glucose (mg/dL) 294 H (70-110) mg/dL Microbiology - Last 24 Hours (Table) 09/11/23 10:16 Blood Culture - Preliminary Blood Assessment and Plan Assessment: Impression: Acute diabetic ketoacidosis, resolved Hypovolemic shock on presentation, resolved Acute respiratory failure with lower lobe patchy infiltrate/pneumonia. Polymicrobial growth on the sputum culture and the patient remains on IV cefepime, patient required intubation mechanical ventilation initially, resolved acute metabolic encephalopathy, resolved Acute rhabdomyolysis Fever, secondary to above, resolved patient remains on cefepime Encephalopathy, rule out anoxic encephalopathy. Mental status is improving Acute rhabdomyolysis, CPK level were elevated. Improving Acute kidney injury, secondary to combination of above, renal function is improving Elevated troponins, likely supply/demand mismatch History of type 2 diabetes mellitus History of bilateral great toe amputations History of hyperlipidemia History of coronary artery disease with previous PCI/stent History of seizure disorder, no seizure activity noted LV dysfunction with ejection fraction of 40 to 45% Recommendation: Continue present supportive care measures Continue oxygen via nasal cannula and titrate accordingly Continue Levemir insulin and sliding scale/NovoLog insulin Advance diet as tolerated assuming the patient's passes the swallow evaluation Continue to monitor electrolytes and address accordingly Continue antibiotics/cefepime Follow-up chest x-ray Will continue to Time with Patient: Less than 30
[2023-09-15 16:18] LABS: Glucose,Whole Blood 200 mg/dL (70-110)
[2023-09-15 20:03] LABS: Glucose,Whole Blood 205 mg/dL (70-110)
[2023-09-16 06:22] LABS: Glucose,Whole Blood 103 mg/dL (70-110)
[2023-09-16 11:32] LABS: Glucose,Whole Blood 144 mg/dL (70-110)
[2023-09-16 12:01] LABS: African American GFR (CKD) >90 (>60 ml/min/1.73 sqM); Anion Gap 5 mmol/L; Blood Urea Nitrogen 20 mg/dL (9-20); Calcium 7.5 mg/dL (8.4-10.2); Carbon Dioxide 23 mmol/L (22-30); Chloride 113 mmol/L (98-107); Glucose 141 mg/dL (74-99); Non-African American GFR(CKD) >90 (>60 ml/min/1.73 sqM); Potassium 2.9 mmol/L (3.5-5.1); Sodium 141 mmol/L (137-145)
[2023-09-16 12:11] LABS: Basophils % (A) 0 %; Eosinophils # (A) 0.1 k/uL (0-0.7); Eosinophils % (A) 1 %; HCT 30.8 % (39.0-53.0); Lymphocytes # (A) 0.5 k/uL (1.0-4.8); Lymphocytes % (A) 5 %; MCH 30.3 pg (25.0-35.0); MCHC 32.4 g/dL (31.0-37.0); MCV 93.6 fL (80.0-100.0); Mean Platelet Volume 10.4; Monocytes # (A) 0.5 k/uL (0-1.0); Monocytes % (A) 6 %; Neutrophils # (A) 7.3 k/uL (1.3-7.7); Neutrophils % (A) 87 %; Platelet Count 146 k/uL (150-450); RBC 3.29 m/uL (4.30-5.90); RDW 13.5 % (11.5-15.5); WBC 8.4 k/uL (3.8-10.6)
--- NOTE | 2023-09-16 12:25 | P.PN ---
Subjective Progress Note Date: 09/16/23 Principal diagnosis: Reason for follow-up is fever Patient is a 67-year-old male with a past medical history significant for coronary disease diabetes mellitus [place] seizure disorder history of diabetic foot infection status post bilateral big toe amputation presenting to the hospital with unresponsiveness patient was initially hypothermic subsequently started spiking fever initial workup with a chest x-ray and urine was negative. On today's evaluation that is 09/16/2023,the patient denies any fever or any chills, patient is breathing comfortably on 2 L current oxygen, the patient denies chest pain shortness of breath and no significant cough, patient denies abdominal pain, no nausea vomiting he did have diarrhea as reported by the nursing staff. Complaining of some lower back pain. Patient white count is 8.4 creatinine 0.87 blood culture negative Objective - Vital Signs Vital signs: Vital Signs Temp 97.3 F L 09/16/23 11:23 Pulse 67 09/16/23 11:23 Resp 17 09/16/23 11:23 BP 155/79 09/16/23 11:23 Pulse Ox 97 09/16/23 11:23 FiO2 35 09/12/23 09:07 Intake & Output 09/15/23 09/16/23 09/16/23 18:59 06:59 18:59 Intake Total 238 236 Output Total 1450 300 800 Balance -1212 -300 -564 Weight 96.8 kg Intake: Oral 238 236 Output: Urine 1450 300 800 Other: Voiding Method Indwelling Catheter Indwelling Catheter Indwelling Catheter # Bowel Movements 1 1 1 ABP, PAP, CO, CI - Last Documented Arterial Blood Pressure 121/60 - Exam GENERAL DESCRIPTION: An elderly male lying in bed in no distress RESPIRATORY SYSTEM: Unlabored breathing , decreased breath sounds at bases HEART: S1 S2 regular rate and rhythm , ABDOMEN: Soft , no tenderness EXTREMITIES: No edema feet - Labs CBC & Chem 7: 09/16/23 10:29 09/16/23 10:29 Labs: Abnormal Lab Results - Last 24 Hours (Table) 09/15/23 09/15/23 09/16/23 Range/Units 16:17 20:02 10:29 RBC 3.29 L (4.30-5.90) m/uL Hgb 10.0 L (13.0-17.5) gm/dL Hct 30.8 L (39.0-53.0) % Plt Count 146 L (150-450) k/uL Lymphocytes # 0.5 L (1.0-4.8) k/uL Potassium (3.5-5.1) mmol/L Chloride (98-107) mmol/L Glucose (74-99) mg/dL POC Glucose (mg/dL) 200 H 205 H (70-110) mg/dL Calcium (8.4-10.2) mg/dL 09/16/23 09/16/23 Range/Units 10:29 11:29 RBC (4.30-5.90) m/uL Hgb (13.0-17.5) gm/dL Hct (39.0-53.0) % Plt Count (150-450) k/uL Lymphocytes # (1.0-4.8) k/uL Potassium 2.9 L (3.5-5.1) mmol/L Chloride 113 H (98-107) mmol/L Glucose 141 H (74-99) mg/dL POC Glucose (mg/dL) 144 H (70-110) mg/dL Calcium 7.5 L (8.4-10.2) mg/dL Assessment and Plan (1) Fever Current Visit: Yes Status: Acute Code(s): R50.9 - FEVER, UNSPECIFIED SNOMED Code(s): 548920969 (2) Pneumonia Current Visit: Yes Status: Acute Code(s): J18.9 - PNEUMONIA, UNSPECIFIED ORGANISM SNOMED Code(s): 319651651 (3) Diarrhea Current Visit: Yes Status: Acute Code(s): R19.7 - DIARRHEA, UNSPECIFIED SNOMED Code(s): 23599968 Plan: 1patient presented to the hospital unresponsive 4 days ago with initial presentation to the outside facility patient was initially hypothermic now with fever patient initial workup including a chest x-ray that has been negative urine has been negative abdominal soft on clinical examination, white count remains to be normal blood culture negative question of viral syndrome versus central source of this fever 2-patient did have a negative influenza RSV and COVID testing, patient did have improvement in his mentation and fever pattern has improved patient has refused LP 3-patient has shown clinical improvement to continue with cefepime with the plan for therapy to oral antibiotics 4diarrhea check a stool for C. difficile will treat if positive will add Questran for symptomatic relief Dictation was produced using [employer] software. please excuse any grammatical, word or spelling errors. Time with Patient: Less than 30
--- NOTE | 2023-09-16 13:34 | P.PN ---
Subjective HISTORY OF PRESENT ILLNESS: 67-year-old male with past medical history of type 2 diabetes, prior to amputations, dyslipidemia, CAD s/p PCI, seizure disorder. Patient is not able to provide any history as he is intubated and is on ventilator support. Patient was transferred from [facility] yesterday. Apparently patient was found unresponsive by patient's partner and last well-known time was 24 hours before. Initial presentation was consistent with DKA and rhabdomyolysis. On admission his labs showed WBC 8.8, hemoglobin 14.5, BUN 134, creatinine 4.29, glucose 91, lactate 1.1. CPK 882, troponin 0.08. BNP 2720. ECG showed normal sinus rhythm with nonspecific interventricular conduction delay. Repeat labs showed CPK increased to 1068. TSH 1.3. 09/09/2023 Patient maintained on ventilator support. He is off pressors. His echocardiogram showed an EF of 40 to 45%, Hemoglobin 12, platelet count 62. On 09/08/2023 patient was noticed to go into atrial fibrillation with RVR. For this he was started on IV amiodarone drip. Geoffrey khan patient is in sinus rhythm. Good urine output, kidney function is improving, creatinine 1.9 today. 06/28/2023 Patient is seen and examined at bedside this a.m. He continues to be on ventila tor support. BP 127/52, heart rate 85, WBC count 7.4, hemoglobin 11.5 Sodium 155, chloride 131, BUN 51, creatinine 1.26. On admission creatinine was 4.2 Patient continues to be on broad-spectrum antibiotic 09/12/2023 Patient was extubated today. BP 143/81, heart rate 87 bpm, continues to be in sinus rhythm. Hemoglobin 10.7, creatinine 1.25, sodium 151, chloride 126. Chest x-ray shows mild congestion in bilateral lower lung thomas. Platelets at 59 September 13, 2023 Patient was extubated 09/12/2023. Hemodynamically stable, currently in sinus rhythm. Kidney function is improving. Does appear mildly volume overloaded. Platelets have improved to 90. 09/14/2023 Patient is hemodynamically stable, SBP around 140s, sinus rhythm on telemetry. Good urine output. 09/15/2023 Patient examined this morning at bedside. Patient currently denies chest pain or pressure. He denies shortness of breath. Vital signs are stable. Telemetry reveals sinus mechanism. 09/16/2023 Patient examined this morning at bedside. Patient's mentation has improved significantly compared to yesterday. Patient currently denies chest pain or pressure. He denies shortness of breath. Telemetry reveals sinus mechanism. PHYSICAL EXAM: VITAL SIGNS: Reviewed. GENERAL: Well-developed in no acute distress. NECK: Supple. No JVD or thyromegaly LUNGS: Respirations even and unlabored. Lungs essentially clear to auscultation bilaterally. HEART: Regular rate and rhythm. S1 and S2 heard. EXTREMITIES: Normal range of motion. No clubbing or cyanosis. Peripheral pulses intact. No lower extremity edema ASSESSMENT: Ventilator dependent respiratory failure, resolved Paroxysmal atrial fibrillation, currently maintaining sinus mechanism Chronic heart failure with reduced EF, 40% Acute diabetic ketoacidosis Metabolic encephalopathy Severe anion gap metabolic acidosis Acute rhabdomyolysis Acute kidney injury Elevated troponin, type II GA secondary to MARIANO, rhabdomyolysis, and respiratory failure, no evidence of acute coronary syndrome Peripheral arterial disease Coronary artery disease with previous stenting History of seizure disorder PLAN: Continue continue current cardiac medications Continue telemetry monitoring Patient is currently stable from a cardiac standpoint for discharge to [facility] Consider outpatient ischemic evaluation We will sign off. Please reconsult if needed. Nurse practitioner note has been reviewed by physician. Signing provider agrees with the documented findings, assessment, and plan of care documented by [employer] as a scribe. Objective - Vital Signs Vital signs: Vital Signs Temp 97.3 F L 09/16/23 11:23 Pulse 67 09/16/23 11:23 Resp 17 09/16/23 11:23 BP 155/79 09/16/23 11:23 Pulse Ox 97 09/16/23 11:23 FiO2 35 09/12/23 09:07 Intake & Output 09/15/23 09/16/23 09/16/23 18:59 06:59 18:59 Intake Total 238 236 Output Total 1450 300 800 Balance -1212 -300 -564 Weight 96.8 kg Intake: Oral 238 236 Output: Urine 1450 300 800 Other: Voiding Method Indwelling Catheter Indwelling Catheter Indwelling Catheter # Bowel Movements 1 1 1 ABP, PAP, CO, CI - Last Documented Arterial Blood Pressure 121/60 - Labs CBC & Chem 7: 09/16/23 10:29 09/16/23 10:29 Labs: Abnormal Lab Results - Last 24 Hours (Table) 09/15/23 09/15/23 09/16/23 Range/Units 16:17 20:02 10:29 RBC 3.29 L (4.30-5.90) m/uL Hgb 10.0 L (13.0-17.5) gm/dL Hct 30.8 L (39.0-53.0) % Plt Count 146 L (150-450) k/uL Lymphocytes # 0.5 L (1.0-4.8) k/uL Potassium (3.5-5.1) mmol/L Chloride (98-107) mmol/L Glucose (74-99) mg/dL POC Glucose (mg/dL) 200 H 205 H (70-110) mg/dL Calcium (8.4-10.2) mg/dL 09/16/23 09/16/23 Range/Units 10:29 11:29 RBC (4.30-5.90) m/uL Hgb (13.0-17.5) gm/dL Hct (39.0-53.0) % Plt Count (150-450) k/uL Lymphocytes # (1.0-4.8) k/uL Potassium 2.9 L (3.5-5.1) mmol/L Chloride 113 H (98-107) mmol/L Glucose 141 H (74-99) mg/dL POC Glucose (mg/dL) 144 H (70-110) mg/dL Calcium 7.5 L (8.4-10.2) mg/dL
--- NOTE | 2023-09-16 14:14 | CDI ---
Documentation Clarification Form Date: 09/16/2023 01:38:27 PM From: Kim Posey RN CCDS Phone: [phone] Admit Date: 09/08/2023 12:27:00 AM Patient Name: Romel Malin Visit Number: [id number] Discharge Date: ATTENTION: The Clinical Documentation Specialists (CDI) and [facility] Coding Staff appreciate your assistance in clarifying documentation. Please respond to the clarification below the line at the bottom and electronically sign. The CDI & [facility] Coding staff will review the response and follow-up if needed. Please note: Queries are made part of the Legal Health Record. If you have any questions, please contact the author of this message via ITS. Dr. Weston Kwok Sepsis is documented HP, 09/07 through Medicine notes 09/09, but is not noted in subsequent documentation. Clarification is requested. History/Risk Factors: 67 year old male presents to the ED as a transfer from [facility] admitted with significant DKA, Hypotension, Shock . Medical history: DM and CAD. HP, 09/07. Clinical Indicators: VSS, 09/06: B/P 76/49; HR 67; Temp 97.6F Axillary; RR 22; SpO2 97% Mechanical ventilation Labs, 09/06: Wbc 8.8, Neutrophils 7.8 Sputum culture final, 09/07: Escherichia coli Staphylococcus aureus Strep agalactiae (group b) CXR, 09/07: Lungs remain clear Treatment: 09/06 0.9NS 2L IV; 09/07 Sodium Bicarbonate IV x 1; 09/07 09/13 Propofol IV; 09/07 09/08 Norepinephrine IV; 09/07 Humulin R IV Bolus; 09/07 Sodium Bicarb IV x 1; 09/07 0.9NS 1L IV; 09/07 Insulin Human Regular IV D/C 09/07; 09/07 Ceftriaxone IVPB x 1; 09/07 09/08 Vasopressin IV; 09/08 -09/11 Cefepime IVPB Q12H Please clarify if the Sepsis is: [ ] Sepsis confirmed, remains under treatment [ X ] Sepsis confirmed, resolved [ ] Sepsis ruled out [ ] Other condition, please specify [ ] Unable to determine (Template Last Revised: May 2020) MTDD
--- NOTE | 2023-09-16 15:10 | P.PN ---
Subjective Progress Note Date: 09/16/23 Principal diagnosis: Acute diabetic ketoacidosis and acute left lower lobe pneumonia with polymicrobial growth on the sputum Patient is a 67-year-old male with past medical history significant for diabetes mellitus, prior toe amputations, hyperlipidemia, coronary artery disease with previous stents, and seizure disorder. He is currently intubated to the mechanical ventilator, unresponsive without any sedation, unable to provide any information. Patient was transferred from [facility] late last night. Apparently, found unresponsive by his girlfriend, and last known well was 24 hours prior. Patient was intubated by EMS on arrival and triaged to [facility]. Initial presentation was consistent with DKA. Subsequently, the patient was transferred to [facility]. Patient is currently in trauma bay 1, he is intubated mechanical ventilator. Chest x-ray on arrival to our facility shows the endotracheal tube in satisfactory position approximately 4 cm above the mahesh. There is an orogastric tube that should be advanced. Right IJ central line catheter appears to terminate at the Cavo atrial junction. No focal infiltrates or evidence of pneumonia. Current ventilator settings are assist-control, respiratory rate 14, tidal volume 500, FiO2 35%, PEEP of 5. He is breathing slightly above set rate. Not on any sedation. Remains unresponsive even to deep painful stimuli. CT of the brain did not show any acute intracranial hemorrhage or mass effect. ABG is consistent with profound metabolic acidosis, with a PaO2 of 204, pCO2 of 25, pH of 7.04. Patient has been given a total of 2 A of bicarb. He is hypotensive and in a shock state, he has been fluid resuscitated with at least 2.5 L crystalloid fluid. No insulin infusion is currently ordered. He remains profoundly hypotensive, and has been started on norepinephrine which is currently infusing at 0.06 mcg/kg/min. CBC: WBC count 8.8, hemoglobin 14.5, hematocrit 50.3, platelets 136. CMP: Sodium 143, potassium 5.2, chloride 115, serum bicarb less than 5, anion gap unmeasurable, BUN 134, creatinine 4.29, glucose 910. Lactic 1.1. LFTs not elevated. Total bilirubin 0.7. Ammonia less than 9. CPK was 882. Troponin 0.084. NT BNP 2720. EKG shows normal sinus rhythm and is nondiagnostic for acute ischemia. Urinalysis positive for glucose and ketones. Urine toxicology screen at outside facility was essentially negative. Serum alcohol less than 10. Patient will be admitted to the intensive care unit once bed available. Today's evaluation of 09/09/2023, the patient is being seen for a follow-up. The patient remains off sedatives. He is grimacing to painful stimulation. He did have a CAT scan of the brain yesterday that showed no acute abnormalities. Suspect a component of hypoxic encephalopathy as the patient apparently was hypoxic when the patient was picked up by the EMS. At this point in time, the patient is grimacing only to deep painful stimulation. Not following any commands yet. The patient has recovered from his anion gap metabolic acidosis related to DKA. The patient is currently on half-normal saline at rate of 100 cc an hour. Most recent blood work shows a gap of 6 with a serum bicarb of 17. Sodium levels at 151. Potassium level at 3.3 which is being replaced. Blood sugars 879. The patient remains on insulin drip and the patient will be transition to long-acting insulin. Remains on the mechanical ventilator assist- control mode at rate of 20, tidal volume of 500, FiO2 of 35% with a PEEP of 5. Blood gas showed a pH of 7.4 with a pCO2 of 29 and pO2 of 103. The patient was tachypneic volume second mechanical ventilation the patient was switched to pressure control. CVP was 2 and after receiving a total of 3 L of fluid and the CVP came up to 8 and the patient has been off pressors since 11:30 PM yesterday. Cardiac rhythm is sinus. The patient is completing albuterol and loading and the patient is currently on 0.5 mg/min. Echocardiogram was done and patient has an ejection fraction of 40 to 45%. The white cell count today is at 5 with a hemoglobin of 12 and a platelet count of 62. Chest x-ray findings are stable. Some atelectatic changes in lung base bilaterally. No antibiotic coverage at this point in time. Sputum is showing gram-negative bacillus and presumptive Staph aureus. 09/10/2023, I am seeing the patient for a follow-up. The patient remains encephalopathic. He grimaces to painful stimulation in all 4 extremities and is withdrawing to pain. Nevertheless, does not follow any commands. His mobility is less in his lower extremities compared to the upper extremities. No seizure activity has been noted. CAT scan of the brain was negative. EEG showed moderate to severe encephalopathy. Suspect hypoxic encephalopathy. Meanwhile, the patient remains intubated on mechanical ventilator. On today's evaluation, he is on no sedation. He is on pressure control mode of mechanical ventilation at rate of 20, pressure control of 15, inspiratory time 0.9 with an FiO2 of 35% and a PEEP of 5. Blood gases from today showed a pH of 7.45 with a pCO2 of 25 and a pO2 of 97. Chest x-ray findings are stable and there is no significant interval change and there is no definite acute process. Based on the positive sputum culture, the patient was started on IV cefepime. Sputum sample was positive for a combination of bacteria including E. coli, Staph aureus/MSSA and Streptococcus. He is afebrile. Hemodynamically stable and he is on no pressors. In fact, he has developed some hypochloremic hyponatremia. He remains on half-normal saline at rate of 100 cc an hour. BUN 64 with a creatinine of 1.46 and a sodium level at 152 and a chloride level is 128. Potassium is at 3.5. WBC count is at 4.7 with a hemoglobin of 1.4 and a platelet count of 49. The patient's blood sugar is at 281. The patient remains on Levemir insulin which is at 15 units and the patient is also on sliding scale coverage. The patient is sitting enteral feeding for nutritional support and the patient is on Glucerna at a rate of 31 cc an hour. On 09/11/2023, the patient is being seen for a follow-up. Opening of his eyes. Not following commands consistently. Remains on mechanical ventilator. Currently is on a pressure control mode with rate of 20, pressure of 50 cm of water, respiratory exam of 0.9, FiO2 35% with a PEEP of 5. Blood gas showed a pH of 7.44 with episodes of 32 and pO2 of 109. Chest x-ray findings are stable. Hemodynamically stable. No pressors. He is on no sedative medications for now. Afebrile. Remains on IV cefepime. White cell count is 7.4, hemoglobin is 11.5 and a platelet count of 59. Sodium is 155, potassium is at 4, chloride is 131, BUN is 51 with a creatinine 1.2. LFTs are stable, CPK is down to 214. The patient is running a low-grade fever. Remains on IV cefepime. Sputum culture was polymicrobial including E. coli, Streptococcus and MSSA. Further blood cultures have been sent. No pressors for now. He is currently on Levemir insulin and sliding scale insulin coverage. The patient is also on Glucerna for enteral feeding and nutritional support she is currently at goal at 54 cc an hour. 09/12/2023, I am seeing the patient for a follow-up. The patient is off sedation. The patient is awake and alert and the patient has been on a pressure support mode of mechanical ventilation throughout the night. The patient is currently on a PSV of 7 and a PEEP of 5. The patient is following simple commands. Blood gas from today shows a pH of 7.41 with a pCO2 of 37 and pO2 of 94. Chest x-ray showing a right lower lobe consolidation which could be an area of pneumonia. The patient is currently afebrile. The patient remains on IV cefepime. The tube feeds are currently on hold in anticipation for possible extubation today. Meanwhile, the patient's blood work shows a white cell count of 6.5, hemoglobin 10.7 and a platelet count of 59. Sodium is currently down to 151. BUN is 46 with a creatinine of 1.1. LFTs are normal. Renal function is normal. CPK is down to 81. No other significant events overnight. Hemodynamically stable. Cardiac rhythm is sinus. 09/13/2023, the patient is being seen for the follow-up. The patient was weaned off the mechanical ventilator and the patient was extubated. On today's evaluation, he is alert and awake and is communicating. Nevertheless, he does have some confusion. He is alert and oriented x 1. No signs of respiratory distress. Continues to have a cough and nasal congestion and a chest x-ray from today is essentially unchanged and the patient has stable patchy opacities in the lung base bilaterally. Remains on IV cefepime. Hemodynamically stable. Sodium level is improving and currently is down to 149. Blood sugars under adequate control and the patient is using Levemir insulin 30 units in addition to NovoLog 4 times a day and a sliding scale coverage. Renal function has normalized. No pressors for now. No fever. Remains on D5 water at the rate of 100 cc an hour. 09/14/2023, the patient is being seen for a follow-up. The patient had transferred out of the intensive care unit yesterday. He is alert and communicating. There is some limited baseline confusion. No agitation. No significant respiratory distress. Awaiting labs from today. The patient remains on D5 water. The patient remains on Levemir insulin. Recovered from his DKA. He is able to swallow and he has been provided a diet. No other significant events overnight. The patient remains on IV cefepime regarding bilateral pneumonia. The patient remains on DuoNeb nebulized treatments [id number]. Remains on anticoagulation with Eliquis. Remains on Levemir insulin 15 units at bedtime and NovoLog sliding scale coverage. Remains on IV Protonix. Patient was placed today on 09/15/2023, patient is being followed for his initial presentation with DKA and questionable left lower lobe pneumonia. Patient is doing well today, on 2 L nasal cannula, O2 saturation 93%. Does not seem to be in any form of distress. His sugar today is 294, his anion gap was nonexistent on the labs noted yesterday, and his BUN is 24 creatinine 0.82. Patient remains on amiodarone, Eliquis, he is also on cefepime and fark [employer]. In addition the patient is on DuoNeb updraft 4 times daily and as needed. And on Levemir insulin as well as insulin scale. Patient was evaluated today on 09/16/2023, patient is doing well, relatively asymptomatic, on 2 L nasal cannula O2 sat is 97%. He is hemodynamically stable, blood sugars have been in the range of 144 up to 200 his WBC count is 8.4 hemoglobin is 10 electrolytes are normal except for low potassium of 2.9 his last chest x-ray from 09/12 showed possible left lower lobe pneumonia Objective - Vital Signs Vital signs: Vital Signs Temp 97.3 F L 09/16/23 11:23 Pulse 67 09/16/23 11:23 Resp 17 09/16/23 11:23 BP 155/79 09/16/23 11:23 Pulse Ox 97 09/16/23 11:23 FiO2 35 09/12/23 09:07 Intake & Output 09/15/23 09/16/23 09/16/23 18:59 06:59 18:59 Intake Total 238 236 Output Total 1450 300 800 Balance -1212 -300 -564 Weight 96.8 kg Intake: Oral 238 236 Output: Urine 1450 300 800 Other: Voiding Method Indwelling Catheter Indwelling Catheter External Catheter # Bowel Movements 1 1 1 ABP, PAP, CO, CI - Last Documented Arterial Blood Pressure 121/60 - Exam GENERAL EXAM: 67-year-old white male in no distress, on 2 L nasal cannula HEAD: Normocephalic and atraumatic EYES: Within normal NOSE: Clear with pink turbinates. THROAT: No erythema or exudates. Dry mucous membranes. NECK: No masses, no JVD. CHEST: No chest wall deformity. LUNGS: Diminished breath sounds at the bases no crackles rhonchi or wheezes CVS: S1 and S2 normal with no soft systolic murmur, regular rhythm. No extra heart sounds ABDOMEN: Abdomen flat, active bowel sounds, no hepatosplenomegaly, no guarding or rigidity. SKIN: No rashes CENTRAL NERVOUS SYSTEM: Alert and oriented x 3 no gross focal deficit EXTREMITIES: no clubbing, no cyanosis, trace of bipedal edema. - Labs CBC & Chem 7: 09/16/23 10:29 09/16/23 10:29 Labs: Abnormal Lab Results - Last 24 Hours (Table) 09/15/23 09/15/23 09/16/23 Range/Units 16:17 20:02 10:29 RBC 3.29 L (4.30-5.90) m/uL Hgb 10.0 L (13.0-17.5) gm/dL Hct 30.8 L (39.0-53.0) % Plt Count 146 L (150-450) k/uL Lymphocytes # 0.5 L (1.0-4.8) k/uL Potassium (3.5-5.1) mmol/L Chloride (98-107) mmol/L Glucose (74-99) mg/dL POC Glucose (mg/dL) 200 H 205 H (70-110) mg/dL Calcium (8.4-10.2) mg/dL 09/16/23 09/16/23 Range/Units 10:29 11:29 RBC (4.30-5.90) m/uL Hgb (13.0-17.5) gm/dL Hct (39.0-53.0) % Plt Count (150-450) k/uL Lymphocytes # (1.0-4.8) k/uL Potassium 2.9 L (3.5-5.1) mmol/L Chloride 113 H (98-107) mmol/L Glucose 141 H (74-99) mg/dL POC Glucose (mg/dL) 144 H (70-110) mg/dL Calcium 7.5 L (8.4-10.2) mg/dL Assessment and Plan Assessment: Impression: Acute diabetic ketoacidosis, resolved Hypovolemic shock on presentation, resolved Acute respiratory failure with lower lobe patchy infiltrate/pneumonia. Polym icrobial growth on the sputum culture and the patient remains on IV cefepime, patient required intubation mechanical ventilation initially, resolved acute metabolic encephalopathy, resolved Acute rhabdomyolysis Fever, secondary to above, resolved patient remains on cefepime Encephalopathy, rule out anoxic encephalopathy. Mental status is improving Acute rhabdomyolysis, CPK level were elevated. Improving Acute kidney injury, secondary to combination of above, renal function is improving Elevated troponins, likely supply/demand mismatch History of type 2 diabetes mellitus History of bilateral great toe amputations History of hyperlipidemia History of coronary artery disease with previous PCI/stent History of seizure disorder, no seizure activity noted LV dysfunction with ejection fraction of 40 to 45% Recommendation: Continue present supportive care measures Continue oxygen via nasal cannula and titrate accordingly Continue Levemir insulin and sliding scale/NovoLog insulin Continue to monitor electrolytes and address accordingly Continue antibiotics/cefepime for questionable left lower lobe pneumonia Follow-up chest x-ray, repeat in a.m. Will continue to follow Time with Patient: Less than 30
--- NOTE | 2023-09-16 15:44 | P.PN ---
Subjective Progress Note Date: 09/15/23 H&P Date: 09/08/23 Chief Complaint: DKA, hypotension, shock This is a 67-year-old gentleman with past medical history significant for diabetes mellitus, bilateral great toe amputations, CAD, AR, seizure disorder,intubated in the field, transferred from [place] [facility], admitted with significant DKA, hypotension, shock and multiple other medical issues. C urrently in the ICU, remains vent dependent on 35% FiO2 +5 of PEEP. Maintained on Levophed, bicarb, vasopressin, amiodarone and insulin drips as well as D5.45 NS IV fluids. Requiring Flores hugger. Patient has not seen PCP since June 2022, had proceeded to live at [facility] in [place]. ICU staff reports significant other reported that patient became unhappy living at the [facility], came to live with her, patient was sick for approximately 4 days and she discovered him unresponsive on her couch. Unresponsive with the exception of winces at noxious stimuli, no spontaneous eye-opening. Brain CT reported no acute intracranial hemorrhage or midline shift, mild diffuse age- related cerebral atrophy and moderate probable chronic small vessel ischemic change redemonstrated. ABGs on arrival reported pH 7.04, pCO2 25, pO2 204, bicarb 7, total CO2 8, O2 sat 99.7, base excess -22.6 on 35% FiO2. chest x-ray reported lungs clear, no infiltrates, cardiac silhouette size within normal limits. Outside toxicology reported as negative;serum alcohol less than 10. received 3 L crystalloids, 1 L saline bolus, 2 g bicarb in the ER with pressors initiated. Procalcitonin 0.29, WBC count 8.0, hemoglobin 14.4, platelets 127,Sodium 143,151, potassium 5.2, 3.2, chloride 115,124, bicarb less than 5, 18, anion gap unmeasurable, 9, BUN 134, 110, creatinine 4.29, 2.76, glucose 910, 332. Lactic 1.1. LFTs WNL. Ammonia less than 9. CPK 882, 1068. Troponin 0.084. NT BNP 2720. EKG reported normal sinus rhythm. UA positive for hyaline casts, ketones ,glucose, and protein. Negative for nitrates. No seizure activity reported. 09/09/2023 paroxysmal atrial fibrillation with RVR, maintained on amiodarone drip ,telemetry currently sinus rhythm. vasopressors weaned off late last night. Remains ventilator dependent with FiO2 35%/+5 of PEEP. Chest x-ray reported suspected underlying COPD, mild patchy medial basilar densities, likely atelectasis .echo reporting technically difficult study , moderately impaired LV function EF of 40-45%. Hemoglobin A1c 11.9. Continues on insulin drip. Anion gap 6, bicarb 17, blood sugars better controlled. Sodium 150, potassium 3.3 renal function improving, BUN 88, creatinine 1.9. Preliminary sputum culture growing gram-negative bacilli, presumptive Staph aureus, blood cultures in progress. Maxipime initiated. Brain CT repeated last night reporting no significant change from most recent prior CT. remains off of sedation, grimacin g to noxious stimuli. 09/10/2023 EEG reported abnormal, background slowing suggestive of severe ence phalopathy likely due to toxic metabolic derangement. Otherwise there is no focal slowing, epileptiform discharges or seizures on the EEG. Continues on Keppra -no seizure activity. Not following commands. Staff reports patient is opening eyes to voice. Grimaces to pain. Remains off pressors and vent dependent with FiO2 35%/+5 of PEEP. Chest x-ray pending. Tmax 100.3, normal WBC. Hemoglobin 11.4, platelets 49 . sputum culture reporting E. coli, Staphylococcus aureus/MSSA, strep agalactiae group B. Maintained on cefepime. Receiving IV fluid hydration of half-normal saline , sodium 152, chloride 128. renal function improving. bicarb 16, BUN 64, creatinine 1.46. On tube feeds of Glucerna ,blood sugars in the mid to low 200s, A1c 11.9. 09/15/2023 telemetry sinus rhythm. Continues on amiodarone, Farxiga. Anticoagulated on Eliquis. Confused this morning, alert and oriented to person, knows he is in the hospital but thinks he is in [place], [place]. Maintaining O2 sat of 94% on 2 L nasal cannula on cefepime and nebulized bronchodilators. Choking on applesauce during speech therapy's evaluation, modified barium swallow ordered. Blood sugars in the low 200s during the night, better controlled this morning, 132. Hemoglobin A1c 11.9. Objective - Vital Signs Vital signs: Vital Signs Temp 97.7 F 09/15/23 15:36 Pulse 76 09/15/23 15:36 Resp 16 09/15/23 15:36 BP 144/74 09/15/23 15:36 Pulse Ox 94 L 09/15/23 15:36 FiO2 35 09/12/23 09:07 Intake & Output 09/15/23 09/15/23 09/16/23 06:59 18:59 06:59 Intake Total 238 Output Total 1450 Balance -1212 Weight 96.8 kg Intake: Oral 238 Output: Urine 1450 Other: Voiding Method Indwelling Catheter Indwelling Catheter # Bowel Movements 1 1 ABP, PAP, CO, CI - Last Documented Arterial Blood Pressure 121/60 - Exam PHYSICAL EXAM: VITAL SIGNS: [As above] GENERAL: Alert and oriented to person and place-hospital, disoriented to city/state and date. Slowly converses. HEENT: Normocephalic, atraumatic, eyes normal,MMM. NECK: Supple, no JVD. CARDIOVASCULAR: S1, S2 regular. Systolic murmur RESPIRATION: Unlabored, equal air entry, essentially clear to auscultation, bilateral bases diminished. ABDOMEN: Soft, nondistended ,nontender . No guarding. no masses palpable. LEGS: No edema. no swelling. Prior bilateral great toe amputations. NERVOUS SYSTEM: Mild confusion otherwise grossly intact Skin: Warm and dry ,no rash noted - Labs CBC & Chem 7: 09/16/23 10:29 09/16/23 10:29 Labs: Abnormal Lab Results - Last 24 Hours (Table) 09/14/23 09/15/23 09/15/23 Range/Units 20:28 05:54 11:23 POC Glucose (mg/dL) 202 H 132 H 294 H (70-110) mg/dL 09/15/23 Range/Units 16:17 POC Glucose (mg/dL) 200 H (70-110) mg/dL Microbiology - Last 24 Hours (Table) 09/11/23 10:16 Blood Culture - Preliminary Blood Assessment and Plan Assessment: Acute DKA, anion gap closed , resolved Severe anion gap metabolic acidosis secondary to the above, status post bicarb drip. Hypotensive ,hypovolemic shock, status post pressor dependent, resolved Acute hypoxic respiratory failure, status post mechanical ventilator dependent. Acute bibasilar pneumonia, sputum culture, polymicrobial, reporting E. coli, Staphylococcus aureus-MSSA, strep agalactiae group B. Dysphagia, delayed swallowing, MBS pending Hyperchloremic hypernatremia, resolved. Thrombocytopenia Paroxysmal atrial fibrillation Sepsis, secondary to all the above Acute metabolic encephalopathy secondary to all the above, suspect anoxic. Br ain CT did not report any acute abnormalities, EEG reported slowing suggestive of severe encephalopathy likely due to toxic metabolic derangement. Acute rhabdomyolysis Acute renal failure, improving Elevated troponin, multifactorial secondary to all the above, ACS ruled out,Type II AR as per cardiology. Severe dehydration Diabetes mellitus type 2, hemoglobin A1c 11.9 CAD, history of AR, stent History of seizure disorder, on Keppra Plan: Continue on current medication resume ,monitoring and symptomatic treatment. Swallow evaluation/MBS ordered -maintain strict aspiration precautions.continue cefepime as per ID. Titrate O2. close monitoring of blood sugars, on Levemir and NovoLog sliding scale. PT/OT consult in place, recommendations pending. Discharge planning in progress for subacute rehab. prognosis guarded, given multiple complex medical issues. The impression and plan of care has been dictated as directed. : I performed a history and examination of this patient, discussed the same with the dictator. I agree with the dictator's note ,documented as a scribe. Any additional findings or plans will be noted.
[2023-09-16] MEDS: HYDROcodone/APAP 5-325MG 1 EACH TAB PO STA (16:06)
[2023-09-16] MEDS: POTASSIUM CHLORIDE ER 20 MEQ TAB.ER PO SCH (16:06)
--- NOTE | 2023-09-16 16:08 | P.PN ---
Subjective Progress Note Date: 09/16/23 H&P Date: 09/08/23 Chief Complaint: DKA, hypotension, shock This is a 67-year-old gentleman with past medical history significant for diabetes mellitus, bilateral great toe amputations, CAD, PA, seizure disorder,intubated in the field, transferred from [place] [facility], admitted with significant DKA, hypotension, shock and multiple other medical issues. C urrently in the ICU, remains vent dependent on 35% FiO2 +5 of PEEP. Maintained on Levophed, bicarb, vasopressin, amiodarone and insulin drips as well as D5.45 NS IV fluids. Requiring Flores hugger. Patient has not seen PCP since June 2022, had proceeded to live at [facility] in [place]. ICU staff reports significant other reported that patient became unhappy living at the [facility], came to live with her, patient was sick for approximately 4 days and she discovered him unresponsive on her couch. Unresponsive with the exception of winces at noxious stimuli, no spontaneous eye-opening. Brain CT reported no acute intracranial hemorrhage or midline shift, mild diffuse age- related cerebral atrophy and moderate probable chronic small vessel ischemic change redemonstrated. ABGs on arrival reported pH 7.04, pCO2 25, pO2 204, bicarb 7, total CO2 8, O2 sat 99.7, base excess -22.6 on 35% FiO2. chest x-ray reported lungs clear, no infiltrates, cardiac silhouette size within normal limits. Outside toxicology reported as negative;serum alcohol less than 10. received 3 L crystalloids, 1 L saline bolus, 2 g bicarb in the ER with pressors initiated. Procalcitonin 0.29, WBC count 8.0, hemoglobin 14.4, platelets 127,Sodium 143,151, potassium 5.2, 3.2, chloride 115,124, bicarb less than 5, 18, anion gap unmeasurable, 9, BUN 134, 110, creatinine 4.29, 2.76, glucose 910, 332. Lactic 1.1. LFTs WNL. Ammonia less than 9. CPK 882, 1068. Troponin 0.084. NT BNP 2720. EKG reported normal sinus rhythm. UA positive for hyaline casts, ketones ,glucose, and protein. Negative for nitrates. No seizure activity reported. 09/09/2023 paroxysmal atrial fibrillation with RVR, maintained on amiodarone drip ,telemetry currently sinus rhythm. vasopressors weaned off late last night. Remains ventilator dependent with FiO2 35%/+5 of PEEP. Chest x-ray reported suspected underlying COPD, mild patchy medial basilar densities, likely atelectasis .echo reporting technically difficult study , moderately impaired LV function EF of 40-45%. Hemoglobin A1c 11.9. Continues on insulin drip. Anion gap 6, bicarb 17, blood sugars better controlled. Sodium 150, potassium 3.3 renal function improving, BUN 88, creatinine 1.9. Preliminary sputum culture growing gram-negative bacilli, presumptive Staph aureus, blood cultures in progress. Maxipime initiated. Brain CT repeated last night reporting no significant change from most recent prior CT. remains off of sedation, grimacin g to noxious stimuli. 09/10/2023 EEG reported abnormal, background slowing suggestive of severe ence phalopathy likely due to toxic metabolic derangement. Otherwise there is no focal slowing, epileptiform discharges or seizures on the EEG. Continues on Keppra -no seizure activity. Not following commands. Staff reports patient is opening eyes to voice. Grimaces to pain. Remains off pressors and vent dependent with FiO2 35%/+5 of PEEP. Chest x-ray pending. Tmax 100.3, normal WBC. Hemoglobin 11.4, platelets 49 . sputum culture reporting E. coli, Staphylococcus aureus/MSSA, strep agalactiae group B. Maintained on cefepime. Receiving IV fluid hydration of half-normal saline , sodium 152, chloride 128. renal function improving. bicarb 16, BUN 64, creatinine 1.46. On tube feeds of Glucerna ,blood sugars in the mid to low 200s, A1c 11.9. 09/15/2023 telemetry sinus rhythm. Continues on amiodarone, Farxiga. Anticoagulated on Eliquis. Confused this morning, alert and oriented to person, knows he is in the hospital but thinks he is in [place], [place]. Maintaining O2 sat of 94% on 2 L nasal cannula on cefepime and nebulized bronchodilators. Choking on applesauce during speech therapy's evaluation, modified barium swallow ordered. Blood sugars in the low 200s during the night, better controlled this morning, 132. Hemoglobin A1c 11.9. 09/16/2023 MBS results noted-speech therapy recommending ground meats, nectar liquids, no straw, liquids from cup, small bites and sips with direct supervision , sitting upright 90 degrees and ongoing speech therapy. O2 sats improved, 97% on 2 L nasal cannula. Maintained on cefepime as per ID, afebrile, normal WBC. Hemoglobin 10, platelets 146. Potassium 2.9-supplementation and magnesium level ordered. Blood sugars better controlled. Renal function stable. Telemetry sinus rhythm. PT pending. Objective - Vital Signs Vital signs: Vital Signs Temp 97.3 F L 09/16/23 11:23 Pulse 67 09/16/23 11:23 Resp 17 09/16/23 11:23 BP 155/79 09/16/23 11:23 Pulse Ox 97 09/16/23 11:23 FiO2 35 09/12/23 09:07 Intake & Output 09/15/23 09/16/23 09/16/23 18:59 06:59 18:59 Intake Total 238 472 Output Total 1450 300 800 Balance -1212 -300 -328 Weight 96.8 kg Intake: Oral 238 472 Output: Urine 1450 300 800 Other: Voiding Method Indwelling Catheter Indwelling Catheter External Catheter # Bowel Movements 1 1 1 ABP, PAP, CO, CI - Last Documented Arterial Blood Pressure 121/60 - Exam PHYSICAL EXAM: VITAL SIGNS: [As above] GENERAL: Alert and oriented to person and place-hospital, disoriented to city/state and date. Slowly converses. HEENT: Normocephalic, atraumatic, eyes normal,MMM. NECK: Supple, no JVD. CARDIOVASCULAR: S1, S2 regular. Systolic murmur RESPIRATION: Unlabored, equal air entry, essentially clear to auscultation, bilateral bases diminished. ABDOMEN: Soft, nondistended ,nontender . No guarding. no masses palpable. LEGS: No edema. no swelling. Prior bilateral great toe amputations. NERVOUS SYSTEM: Mild confusion otherwise grossly intact Skin: Warm and dry . Anterior scrotal fungal rash noted. Stage I approximately 1 cm near rectum at approximately 5:00. - Labs CBC & Chem 7: 09/16/23 10:29 09/16/23 10:29 Labs: Abnormal Lab Results - Last 24 Hours (Table) 09/15/23 09/15/23 09/16/23 Range/Units 16:17 20:02 10:29 RBC 3.29 L (4.30-5.90) m/uL Hgb 10.0 L (13.0-17.5) gm/dL Hct 30.8 L (39.0-53.0) % Plt Count 146 L (150-450) k/uL Lymphocytes # 0.5 L (1.0-4.8) k/uL Potassium (3.5-5.1) mmol/L Chloride (98-107) mmol/L Glucose (74-99) mg/dL POC Glucose (mg/dL) 200 H 205 H (70-110) mg/dL Calcium (8.4-10.2) mg/dL 09/16/23 09/16/23 Range/Units 10:29 11:29 RBC (4.30-5.90) m/uL Hgb (13.0-17.5) gm/dL Hct (39.0-53.0) % Plt Count (150-450) k/uL Lymphocytes # (1.0-4.8) k/uL Potassium 2.9 L (3.5-5.1) mmol/L Chloride 113 H (98-107) mmol/L Glucose 141 H (74-99) mg/dL POC Glucose (mg/dL) 144 H (70-110) mg/dL Calcium 7.5 L (8.4-10.2) mg/dL Assessment and Plan Assessment: Acute DKA, anion gap closed , resolved Severe anion gap metabolic acidosis secondary to the above, status post bicarb drip. Hypotensive ,hypovolemic shock, status post pressor dependent, resolved Acute hypoxic respiratory failure, status post mechanical ventilator dependent. Acute bibasilar pneumonia, sputum culture, polymicrobial, reporting E. coli, Staphylococcus aureus-MSSA, strep agalactiae group B. Dysphagia, delayed swallowing, MBS completed-speech recommending dysphagia level 2 diet, one-to-one supervision, aspiration precautions Hyperchloremic hypernatremia, resolved. Thrombocytopenia Paroxysmal atrial fibrillation Sepsis, secondary to all the above, resolved. Acute metabolic encephalopathy secondary to all the above, suspect anoxic. Brain CT did not report any acute abnormalities, EEG reported slowing suggestive of severe encephalopathy likely due to toxic metabolic derangement. Acute rhabdomyolysis Acute renal failure, improving Elevated troponin, multifactorial secondary to all the above, ACS ruled out,Type II PA as per cardiology. Severe dehydration Diabetes mellitus type 2, hemoglobin A1c 11.9 CAD, history of PA, stent History of seizure disorder, on Keppra Stage I pressure ulcer, 1 cm near rectum Fungal rash, anterior scrotum Hypokalemia Plan: Continue on current medication resume ,monitoring and symptomatic treatment. Potassium supplements ordered with magnesium level added on. Repeat potassium level later tonight. dysphagia level 2, with one-to-one supervision ,aspiration precautions.barrier cream to coccyx/sacral , around exterior rectal area. Nystatin ointment ordered for anterior scrotal fungal rash .continue cefepime as per ID. Titrate O2. Maintain Levemir insulin and NovoLog sliding scale with close monitoring of blood sugars. PT/OT consult in place, recommenda tions pending. Discharge planning in progress for subacute rehab. prognosis guarded, given multiple complex medical issues. The impression and plan of care has been dictated as directed. : I performed a history and examination of this patient, discussed the same with the dictator. I agree with the dictator's note ,documented as a scribe. Any additional findings or plans will be noted.
--- NOTE | 2023-09-16 16:12 | CT ---
EXAMINATION TYPE: CT pelvis wo con CT DLP: 1801.4 combined DLP mGycm, Automated exposure control for dose reduction was used. DATE OF EXAM: 09/16/2023 3:56 PM COMPARISON: none CLINICAL INDICATION:Male, 67 years old with history of pain; low back pain TECHNIQUE: Axial CT pelvis wo con;Sagittal and coronal reformats were created on a separate workstat ion. Contrast used: mL of , (none if empty) Oral contrast used: without Oral Contrast (none if empty) FINDINGS: Horseshoe kidney partially visualized. BLADDER: Unremarkable REPRODUCTIVE: Unremarkable. ABDOMEN & PELVIS STOMACH AND BOWEL: No evidence of bowel obstruction. Circumferential wall thickening of the sigmoid c olon and rectum with fat stranding changes around the rectum, acosta measuring up to 6 mm. This mild f at stranding changes also present. There is some lymph nodes are prominent series 301 image 40 measur ing 6 mm and 7 mm. PERITONEUM/RETROPERITONEUM: No evidence of pneumoperitoneum or free fluid. VASCULATURE: Mild atherosclerotic calcifications are present throughout the abdominal aorta and its b ranches. No evidence of aortic aneurysm. MUSCULOSKELETAL: No acute osseous abnormalities. Moderate disc degeneration changes are present throu ghout the thoracolumbar spine. Osteophyte formation superior acetabulum with joint space narrowing bi laterally. LYMPH NODES: There is some lymph nodes are prominent series 301 image 40 measuring 6 mm and 7 mm SOFT TISSUE/ABDOMINAL WALL: Exiting right inguinal hernia. IMPRESSION: 1. Circumferential wall thickening of the rectum/sigmoid colon correlate for proctitis. Prominent me senteric lymph nodes around the rectum also present. Direct visualization if not recently performed r ecommended to rule out mass. 2. Colonic diverticulosis. 3. Fat-containing right inguinal hernia no evidence of fracture. 4. [id number] bilateral hip osteoarthrosis and moderate degeneration changes of the spine.
--- NOTE | 2023-09-16 16:15 | CT ---
EXAMINATION TYPE: CT lumbar spine wo con CT DLP: 1801.4 combined DLP mGycm, Automated exposure control for dose reduction was used. DATE OF EXAM: 09/16/2023 3:56 PM COMPARISON: CT pelvis same day. CLINICAL INDICATION:Male, 67 years old with history of Back pain; PHH, low back pain TECHNIQUE: Multiple axial images were obtained from the midportion of T11 through the sacroiliac lilly nts. Soft tissue and bone windows in coronal and sagittal planes were obtained and reviewed. Contrast used: mL of , (None, if empty). Oral contrast used: (None, if empty). FINDINGS: Alignment: There are 5 lumbar type vertebral bodies within normal alignment. Bone: Moderate degeneration changes throughout the spine with osteophyte formation, Schmorl's nodes a nd facet joint arthropathy. Osteophyte formation of the sacroiliac joints bilaterally left greater th an right.1 Discs: T12-L1: No spinal canal or neural foraminal stenosis is identified. L1-L2: No spinal canal or neural foraminal stenosis is identified. L2-L3: No spinal canal or neural foraminal stenosis is identified. L3-L4: No spinal canal or neural foraminal stenosis is identified. L4-L5: No spinal canal stenosis. Facet joint arthropathy with moderate bilateral neural foraminal niels nosis. L5-S1: No spinal canal stenosis.Facet joint arthropathy with moderate bilateral neural foraminal sten osis. Other: Consolidation in the bilateral lung bases. IMPRESSION: 1. No evidence for spinal fracture. 2. Moderate degeneration changes of the spine without evidence for significant spinal canal stenosis . Moderate bilateral L5-S1 and L4-L5 neural foraminal stenosis. 3. Bilateral lung base consolidation possibly representing atelectasis with superimposed infection n ot excluded. 4. Trace right pleural effusion.
[2023-09-16 16:36] LABS: Glucose,Whole Blood 287 mg/dL (70-110)
[2023-09-16] MEDS: CHOLESTYRAMINE (WITH SUGAR) 4 GM PACKET PO SCH (17:34)
[2023-09-16 20:14] LABS: Glucose,Whole Blood 243 mg/dL (70-110)
[2023-09-16] MEDS: NYSTATIN 100,000 UNIT/GM OINT 30 GM TUBE TOPICAL SCH (21:22)
[2023-09-16] MEDS: HYDROcodone/APAP 5-325MG 1 EACH TAB PO PRN (21:24)
[2023-09-17 06:21] LABS: Glucose,Whole Blood 163 mg/dL (70-110)
[2023-09-17 07:32] LABS: African American GFR (CKD) >90 (>60 ml/min/1.73 sqM); Anion Gap 4 mmol/L; Blood Urea Nitrogen 18 mg/dL (9-20); Calcium 7.7 mg/dL (8.4-10.2); Carbon Dioxide 23 mmol/L (22-30); Chloride 115 mmol/L (98-107); Glucose 157 mg/dL (74-99); Non-African American GFR(CKD) >90 (>60 ml/min/1.73 sqM); Potassium 3.5 mmol/L (3.5-5.1); Sodium 142 mmol/L (137-145)
[2023-09-17] MEDS: POTASSIUM CHLORIDE ER 20 MEQ TAB.ER PO STA (09:23)
--- NOTE | 2023-09-17 10:19 | P.PN ---
Subjective Progress Note Date: 09/16/23 Patient was initially seen by Dr. Edvin Espinoza. Please refer to his note for details. Patient is a 67-year-old male with acute DKA. EEG was negative for seizures. Patient has history of seizures and takes Keppra. Patient had fever but appears to be from aspiration pneumonia. Infectious disease had recommended lumbar puncture but patient had refused. Mentation is improving. Patient was seen for a follow-up. Patient is laying in the bed. States feeling "not good". Patient complaining of very severe pain involving his "butt and back". He points that to between his buttocks, perhaps in the rectal region. He claims the pain is "bad", rates 10/10. He states he cannot even sit as it hurts so bad. He could not even turn to show me where the exact pain is. He denies any headache. He is fully oriented as mentioned below. Patient states regarding his bowel movement, he cannot tell as much when it is coming. Some of the work-up during this hospital visit consisted of: Tmax is past 24 hours are 100.4 Yesterday at 5am temperature of 103.0 wbc has been normal. He has thrombocytopenia TSH is 1.350 clinically ammonia level is less than 9 CK level is 882-->214 Vitamin B12: [address] of the head is reported as no acute intracranial hemorrhage or midline shift. There is mild diffuse age-related cerebral atrophy and mild to moderate probable chronic small vessel ischemic change redemonstrated. No significant change from most recent prior CT. Personally reviewed the CT and I agree there is no acute or subacute ischemia. Echo is reported as technically difficult study. Limited study. Overall left ventricle systolic function moderately impaired. Routine EEG: Is abnormal. The background slowing is suggestive of severe encephalopathy likely due to toxic-metabolic derrangement. Otherwise, there is no focal slowing, epileptiform discharges or seizure on the EEG. Blood culture is E. Coli, staph aureus and Strep agalctiae CXR: Similar patch density medial left base. Increasing patchy atelectasis/infiltrate at right base. Objective - Vital Signs Vital signs: Vital Signs Temp 97.3 F L 09/16/23 11:23 Pulse 67 09/16/23 11:23 Resp 17 09/16/23 11:23 BP 155/79 09/16/23 11:23 Pulse Ox 97 09/16/23 11:23 FiO2 35 09/12/23 09:07 Intake & Output 09/15/23 09/16/23 09/16/23 18:59 06:59 18:59 Intake Total 238 236 Output Total 1450 300 800 Balance -1212 -300 -564 Weight 96.8 kg Intake: Oral 238 236 Output: Urine 1450 300 800 Other: Voiding Method Indwelling Catheter Indwelling Catheter Indwelling Catheter # Bowel Movements 1 1 1 ABP, PAP, CO, CI - Last Documented Arterial Blood Pressure 121/60 - Exam Patient is alert and awake fairly well-oriented. He knows it is September 2023 and that he has not a hospital in [place] in [place]. Speech and language functions are normal. His cranial nerves are normal. Visual thomas are full. Face is symmetric. On muscle strength testing (right/left) deltoid 4/4, biceps 4+/4+, triceps 4+/4+5-, stakes player 4+/4+, hip flexion 2/2, ankle dorsiflexion 1-2/1-2. Reflexes are absent all over. He has amputated big toes bilaterally. - Labs CBC & Chem 7: 09/16/23 10:29 09/17/23 06:27 Labs: Abnormal Lab Results - Last 24 Hours (Table) 09/15/23 09/15/23 09/16/23 Range/Units 16:17 20:02 10:29 RBC 3.29 L (4.30-5.90) m/uL Hgb 10.0 L (13.0-17.5) gm/dL Hct 30.8 L (39.0-53.0) % Plt Count 146 L (150-450) k/uL Lymphocytes # 0.5 L (1.0-4.8) k/uL Potassium (3.5-5.1) mmol/L Chloride (98-107) mmol/L Glucose (74-99) mg/dL POC Glucose (mg/dL) 200 H 205 H (70-110) mg/dL Calcium (8.4-10.2) mg/dL 09/16/23 09/16/23 Range/Units 10:29 11:29 RBC (4.30-5.90) m/uL Hgb (13.0-17.5) gm/dL Hct (39.0-53.0) % Plt Count (150-450) k/uL Lymphocytes # (1.0-4.8) k/uL Potassium 2.9 L (3.5-5.1) mmol/L Chloride 113 H (98-107) mmol/L Glucose 141 H (74-99) mg/dL POC Glucose (mg/dL) 144 H (70-110) mg/dL Calcium 7.5 L (8.4-10.2) mg/dL Assessment and Plan Assessment: Altered Mental status, likely due to metabolic encephalopathy. Reasons multifactorial as mentioned below. Mentation much improved. Patient fully oriented. New onset severe pain in the lower back/rectal region, unclear cause. Needs further testing. Pyrexia likely due to septicemia and probable aspiration pneumonia Respiratory distress and patient was intubated for airway protection--Today was extubated but remains to have a lot of secretion and sounds coarse. 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 Plan: Patient's mentation has remarkably improved. He is fully oriented. Patient had two CT head which are negative for acute process. EEG is severe encephalopathy but no seizure or discharges appreciated Is on home dose of Keppra 500 mg twice a day. Patient is on aspirin 81 mg and Lipitor 40 mg nightly. Patient denies headache. No indication for lumbar puncture. Patient complaining of severe pain in the rectal region in the lower back. We will check CT of the lumbar spine, and CT of the pelvis to rule out any structural abnormality. Discussed with infectious disease. Will defer the rest of the medical management to primary and other specialists.
[2023-09-17 11:54] LABS: Glucose,Whole Blood 123 mg/dL (70-110)
--- NOTE | 2023-09-17 14:48 | P.GSCN ---
History of Present Illness Consult date: 09/17/23 History of present illness: CHIEF COMPLAINT: DKA Reason for consult right inguinal hernia and rectal mass HISTORY OF PRESENT ILLNESS: This is a 67-year-old male who presented to the hospital on September 06 with evidence of DKA. Patient was unresponsive and required to be intubated by EMS. Patient had been in the ICU. Currently patient is on the cardiac floor. He is awake and alert. Per nursing staff he does have forgetfulness. Patient reports he has been having bowel movements. He is incontinent of loose stools. No blood reported in the stools. He had been h aving lower back pain and rectal pain. A pelvic CAT scan was completed and reported wall thickening in the rectum and sigmoid colon and a fat-containing right inguinal hernia. Patient denies any nausea or vomiting. He reports last colonoscopy was within the last year. He reports there was no significant findings. He has been anemic with a hemoglobin of 10. Patient reports having chronic lower back pain. PAST MEDICAL HISTORY: See list. PAST SURGICAL HISTORY: See list. MEDICATIONS: See list. ALLERGIES: See list. SOCIAL HISTORY: No illicit drug use. REVIEW OF SYSTEMS: CONSTITUTIONAL: Denies fever or chills. HEENT: Denies blurred vision, vision changes, or eye pain. Denies hemoptysis ENDOCRINE: Denies heat or cold intolerance. CARDIOVASCULAR: Denies chest pain or pressure. RESPIRATORY: No shortness of breath. GASTROINTESTINAL: please refer to HPI NEURO: Denies history of seizures. PSYCH: No depression or suicidal ideation HEMATOLOGIC: Denies bleeding disorders. LYMPHATIC: The patient denies any lumps and bumps around the neck. GENITOURINARY: Denies any blood in urine or increased urinary frequency. MUSCULOSKELETAL: Denies myalgias. Denies joint swelling. Denies decreased range of motion beyond patients baseline. SKIN: Denies pruitis. Denies rash. PHYSICAL EXAM: VITAL SIGNS: Reviewed GENERAL: Pale. no acute distress. HEENT: No sclera icterus. Extraocular movements grossly intact. Moist buccal mucosa. Head is atraumatic, normocephalic. Hears conversational speech. No nasal drainage. NECK: Supple without lymphadenopathy. CHEST: Non-labored respirations and equal bilateral excursions. CARDIOVASCULAR: Palpable 2+ radial pulses. ABDOMEN: Soft. Nondistended. mild tenderness across lower abdomen. No palpable hernia in right right groin. Area is nontender MUSCULOSKELETAL: No clubbing or cyanosis. NEUROLOGIC: No focal or lateralizing signs. Cranial nerves II through XII grossly intact. PSYCH: Alert and oriented to person, place and time. SKIN: Well perfused. Good skin turgor. LABORATORY DATA: WBC 8.4 HGB 10 plt 146 Na 142 K 3.5 Cr 0.87 BS 123 C.diff negative IMAGING: CT pelvis reports circumferential wall thickening of the rectum/sigmoid colon correlate for proctitis. Prominent mesenteric lymph nodes around the rectum also present. Direct visualization if not recently performed recommended to rule out mass. Colonic diverticulosis. Fat-containing right inguinal hernia. Mild to moderate bilateral hip osteoarthritis and moderate degenerative changes of the spine. CT scan lumbar spine no evidence for spinal fracture. Moderate degenerative changes of the spine without significant spinal canal stenosis moderate shyla ateral neural L5-S1 and L4-L5 neural foraminal stenosis ASSESSMENT: 1. Rectal pain. CT pelvis reporting wall thickening of the rectum/sigmoid colon 2. Fat-containing right inguinal hernia noted on CT 3. Acute diabetic ketoacidosis on admission 4. Acute respiratory failure with pneumonia 5. Acute rhabdomyolysis 6. Metabolic encephalopathy 7. Acute kidney injury 8. Acute rhabdomyolysis 9. Coronary disease with cardiac stent history 10. History of EF of 40 to 45% 11. History of Afib PLAN: -Further recommendations forthcoming per surgeon -Placed Eliquis on hold for possible colonoscopy Physician Developmental Psychologist note has been reviewed by physician. Signing provider agrees with the documented findings, assessment, and plan of care. Past Medical History Past Medical History: Coronary Artery Disease (CAD), Diabetes Mellitus, Myocardial Infarction (NH), Seizure Disorder Last Myocardial Infarction Date:: unknown History of Any Multi-Drug Resistant Organisms: Unobtainable Past Surgical History: Heart Catheterization With Stent Additional Past Surgical History / Comment(s): shyla big toe removal Date of Last Stent Placement:: unknown Past Psychological History: Unable to Obtain Smoking Status: Never smoker Past Alcohol Use History: None Reported Past Drug Use History: None Reported Medications and Allergies Home Medications Medication Instructions Recorded Confirmed Type Ascorbic Acid [Vitamin C] 500 mg PO BID 09/08/23 09/08/23 History Atorvastatin [Lipitor] 40 mg PO HS 09/08/23 09/08/23 History Cetirizine HCl [Zyrtec] 10 mg PO HS 09/08/23 09/08/23 History Cholecalciferol (Vitamin D3) 1,250 mcg PO WEEKLY 09/08/23 09/08/23 History [Vitamin D3 (1250 Mcg = 50,000 Iu)] Escitalopram [Lexapro] 10 mg PO DAILY 09/08/23 09/08/23 History Furosemide [Lasix] 20 mg PO DAILY 09/08/23 09/08/23 History Potassium Chloride [Klor-Con M10] 10 meq PO DAILY 09/08/23 09/08/23 History levETIRAcetam [Keppra] 500 mg PO Q12HR 09/08/23 09/08/23 History tiZANidine [Zanaflex] 4 mg PO TID 09/08/23 09/08/23 History Amiodarone [Cordarone] 400 mg PO BID tab 09/17/23 Rx Apixaban [Eliquis] 5 mg PO BID tab 09/17/23 Rx Aspirin 81 mg PO DAILY tab 09/17/23 Rx Cholestyramine (with Sugar) 4 gm PO BID@1000,1800 packet 09/17/23 Rx [Questran Packet] Dapagliflozin Propanediol [Farxiga] 10 mg PO DAILY tab 09/17/23 Rx HYDROcodone/APAP 5-325MG [[place] 1 each PO Q6H PRN #12 tab 09/17/23 Rx 5-325] INSULIN LISPRO (HumaLOG) [humaLOG] 0 unit SQ ACHS #10 ml 09/17/23 Rx Insulin Detemir (Levemir) [Levemir] 15 unit SQ HS each 09/17/23 Rx Ipratropium-Albuterol Nebulize 3 ml INHALATION RT-QID each 09/17/23 Rx [Duoneb 0.5 mg-3 mg/3 ml Soln] Losartan [Cozaar] 25 mg PO DAILY tab 09/17/23 Rx Metoprolol Tartrate [Lopressor] 25 mg PO BID tab 09/17/23 Rx Nystatin 100,000 Unit/gm Oint 1 applic TOPICAL BID each 09/17/23 Rx [Mycostatin Oint] Allergies Allergy/AdvReac Type Severity Reaction Status Date / Time No Known Allergies Allergy Verified 09/08/23 10:10 Surgical - Exam Vital Signs Temp Pulse Resp BP Pulse Ox FiO2 97.6 F 67 22 76/49 97 35 09/07/23 23:09 09/07/23 23:09 09/07/23 23:09 09/07/23 23:09 09/07/23 23:09 09/07/23 23:09 Results - Labs 09/16/23 10:29 09/17/23 06:27 Abnormal Lab Results - Last 24 Hours (Table) 09/16/23 09/16/23 09/17/23 Range/Units 16:35 20:12 06:20 Chloride (98-107) mmol/L Glucose (74-99) mg/dL POC Glucose (mg/dL) 287 H 243 H 163 H (70-110) mg/dL Calcium (8.4-10.2) mg/dL 09/17/23 09/17/23 Range/Units 06:27 11:53 Chloride 115 H (98-107) mmol/L Glucose 157 H (74-99) mg/dL POC Glucose (mg/dL) 123 H (70-110) mg/dL Calcium 7.7 L (8.4-10.2) mg/dL Microbiology - Last 24 Hours (Table) 09/11/23 10:16 Blood Culture - Final Blood Diabetes panel 09/16/23 09/17/23 Range/Units 21:42 06:27 Sodium 142 (137-145) mmol/L Potassium 3.6 3.5 (3.5-5.1) mmol/L Chloride 115 H (98-107) mmol/L Carbon Dioxide 23 (22-30) mmol/L BUN 18 (9-20) mg/dL Creatinine 0.87 (0.66-1.25) mg/dL Glucose 157 H (74-99) mg/dL Calcium 7.7 L (8.4-10.2) mg/dL Calcium panel 09/17/23 Range/Units 06:27 Calcium 7.7 L (8.4-10.2) mg/dL Pituitary panel 09/16/23 09/17/23 Range/Units 21:42 06:27 Sodium 142 (137-145) mmol/L Potassium 3.6 3.5 (3.5-5.1) mmol/L Chloride 115 H (98-107) mmol/L Carbon Dioxide 23 (22-30) mmol/L BUN 18 (9-20) mg/dL Creatinine 0.87 (0.66-1.25) mg/dL Glucose 157 H (74-99) mg/dL Calcium 7.7 L (8.4-10.2) mg/dL Adrenal panel 09/16/23 09/17/23 Range/Units 21:42 06:27 Sodium 142 (137-145) mmol/L Potassium 3.6 3.5 (3.5-5.1) mmol/L Chloride 115 H (98-107) mmol/L Carbon Dioxide 23 (22-30) mmol/L BUN 18 (9-20) mg/dL Creatinine 0.87 (0.66-1.25) mg/dL Glucose 157 H (74-99) mg/dL Calcium 7.7 L (8.4-10.2) mg/dL
--- NOTE | 2023-09-17 15:18 | P.PN ---
Subjective Progress Note Date: 09/17/23 Principal diagnosis: Acute diabetic ketoacidosis and acute left lower lobe pneumonia with polymicrobial growth on the sputum Patient is a 67-year-old male with past medical history significant for diabetes mellitus, prior toe amputations, hyperlipidemia, coronary artery disease with previous stents, and seizure disorder. He is currently intubated to the mechanical ventilator, unresponsive without any sedation, unable to provide any information. Patient was transferred from [facility] late last night. Apparently, found unresponsive by his girlfriend, and last known well was 24 hours prior. Patient was intubated by EMS on arrival and triaged to [facility]. Initial presentation was consistent with DKA. Subsequently, the patient was transferred to [facility]. Patient is currently in trauma bay 1, he is intubated mechanical ventilator. Chest x-ray on arrival to our facility shows the endotracheal tube in satisfactory position approximately 4 cm above the mahesh. There is an orogastric tube that should be advanced. Right IJ central line catheter appears to terminate at the Cavo atrial junction. No focal infiltrates or evidence of pneumonia. Current ventilator settings are assist-control, respiratory rate 14, tidal volume 500, FiO2 35%, PEEP of 5. He is breathing slightly above set rate. Not on any sedation. Remains unresponsive even to deep painful stimuli. CT of the brain did not show any acute intracranial hemorrhage or mass effect. ABG is consistent with profound metabolic acidosis, with a PaO2 of 204, pCO2 of 25, pH of 7.04. Patient has been given a total of 2 A of bicarb. He is hypotensive and in a shock state, he has been fluid resuscitated with at least 2.5 L crystalloid fluid. No insulin infusion is currently ordered. He remains profoundly hypotensive, and has been started on norepinephrine which is currently infusing at 0.06 mcg/kg/min. CBC: WBC count 8.8, hemoglobin 14.5, hematocrit 50.3, platelets 136. CMP: Sodium 143, potassium 5.2, chloride 115, serum bicarb less than 5, anion gap unmeasurable, BUN 134, creatinine 4.29, glucose 910. Lactic 1.1. LFTs not elevated. Total bilirubin 0.7. Ammonia less than 9. CPK was 882. Troponin 0.084. NT BNP 2720. EKG shows normal sinus rhythm and is nondiagnostic for acute ischemia. Urinalysis positive for glucose and ketones. Urine toxicology screen at outside facility was essentially negative. Serum alcohol less than 10. Patient will be admitted to the intensive care unit once bed available. Today's evaluation of 09/09/2023, the patient is being seen for a follow-up. The patient remains off sedatives. He is grimacing to painful stimulation. He did have a CAT scan of the brain yesterday that showed no acute abnormalities. Suspect a component of hypoxic encephalopathy as the patient apparently was hypoxic when the patient was picked up by the EMS. At this point in time, the patient is grimacing only to deep painful stimulation. Not following any commands yet. The patient has recovered from his anion gap metabolic acidosis related to DKA. The patient is currently on half-normal saline at rate of 100 cc an hour. Most recent blood work shows a gap of 6 with a serum bicarb of 17. Sodium levels at 151. Potassium level at 3.3 which is being replaced. Blood sugars 879. The patient remains on insulin drip and the patient will be transition to long-acting insulin. Remains on the mechanical ventilator assist- control mode at rate of 20, tidal volume of 500, FiO2 of 35% with a PEEP of 5. Blood gas showed a pH of 7.4 with a pCO2 of 29 and pO2 of 103. The patient was tachypneic volume second mechanical ventilation the patient was switched to pressure control. CVP was 2 and after receiving a total of 3 L of fluid and the CVP came up to 8 and the patient has been off pressors since 11:30 PM yesterday. Cardiac rhythm is sinus. The patient is completing albuterol and loading and the patient is currently on 0.5 mg/min. Echocardiogram was done and patient has an ejection fraction of 40 to 45%. The white cell count today is at 5 with a hemoglobin of 12 and a platelet count of 62. Chest x-ray findings are stable. Some atelectatic changes in lung base bilaterally. No antibiotic coverage at this point in time. Sputum is showing gram-negative bacillus and presumptive Staph aureus. 09/10/2023, I am seeing the patient for a follow-up. The patient remains encephalopathic. He grimaces to painful stimulation in all 4 extremities and is withdrawing to pain. Nevertheless, does not follow any commands. His mobility is less in his lower extremities compared to the upper extremities. No seizure activity has been noted. CAT scan of the brain was negative. EEG showed moderate to severe encephalopathy. Suspect hypoxic encephalopathy. Meanwhile, the patient remains intubated on mechanical ventilator. On today's evaluation, he is on no sedation. He is on pressure control mode of mechanical ventilation at rate of 20, pressure control of 15, inspiratory time 0.9 with an FiO2 of 35% and a PEEP of 5. Blood gases from today showed a pH of 7.45 with a pCO2 of 25 and a pO2 of 97. Chest x-ray findings are stable and there is no significant interval change and there is no definite acute process. Based on the positive sputum culture, the patient was started on IV cefepime. Sputum sample was positive for a combination of bacteria including E. coli, Staph aureus/MSSA and Streptococcus. He is afebrile. Hemodynamically stable and he is on no pressors. In fact, he has developed some hypochloremic hyponatremia. He remains on half-normal saline at rate of 100 cc an hour. BUN 64 with a creatinine of 1.46 and a sodium level at 152 and a chloride level is 128. Potassium is at 3.5. WBC count is at 4.7 with a hemoglobin of 1.4 and a platelet count of 49. The patient's blood sugar is at 281. The patient remains on Levemir insulin which is at 15 units and the patient is also on sliding scale coverage. The patient is sitting enteral feeding for nutritional support and the patient is on Glucerna at a rate of 31 cc an hour. On 09/11/2023, the patient is being seen for a follow-up. Opening of his eyes. Not following commands consistently. Remains on mechanical ventilator. Currently is on a pressure control mode with rate of 20, pressure of 50 cm of water, respiratory exam of 0.9, FiO2 35% with a PEEP of 5. Blood gas showed a pH of 7.44 with episodes of 32 and pO2 of 109. Chest x-ray findings are stable. Hemodynamically stable. No pressors. He is on no sedative medications for now. Afebrile. Remains on IV cefepime. White cell count is 7.4, hemoglobin is 11.5 and a platelet count of 59. Sodium is 155, potassium is at 4, chloride is 131, BUN is 51 with a creatinine 1.2. LFTs are stable, CPK is down to 214. The patient is running a low-grade fever. Remains on IV cefepime. Sputum culture was polymicrobial including E. coli, Streptococcus and MSSA. Further blood cultures have been sent. No pressors for now. He is currently on Levemir insulin and sliding scale insulin coverage. The patient is also on Glucerna for enteral feeding and nutritional support she is currently at goal at 54 cc an hour. 09/12/2023, I am seeing the patient for a follow-up. The patient is off sedation. The patient is awake and alert and the patient has been on a pressure support mode of mechanical ventilation throughout the night. The patient is currently on a PSV of 7 and a PEEP of 5. The patient is following simple commands. Blood gas from today shows a pH of 7.41 with a pCO2 of 37 and pO2 of 94. Chest x-ray showing a right lower lobe consolidation which could be an area of pneumonia. The patient is currently afebrile. The patient remains on IV cefepime. The tube feeds are currently on hold in anticipation for possible extubation today. Meanwhile, the patient's blood work shows a white cell count of 6.5, hemoglobin 10.7 and a platelet count of 59. Sodium is currently down to 151. BUN is 46 with a creatinine of 1.1. LFTs are normal. Renal function is normal. CPK is down to 81. No other significant events overnight. Hemodynamically stable. Cardiac rhythm is sinus. 09/13/2023, the patient is being seen for the follow-up. The patient was weaned off the mechanical ventilator and the patient was extubated. On today's evaluation, he is alert and awake and is communicating. Nevertheless, he does have some confusion. He is alert and oriented x 1. No signs of respiratory distress. Continues to have a cough and nasal congestion and a chest x-ray from today is essentially unchanged and the patient has stable patchy opacities in the lung base bilaterally. Remains on IV cefepime. Hemodynamically stable. Sodium level is improving and currently is down to 149. Blood sugars under adequate control and the patient is using Levemir insulin 30 units in addition to NovoLog 4 times a day and a sliding scale coverage. Renal function has normalized. No pressors for now. No fever. Remains on D5 water at the rate of 100 cc an hour. 09/14/2023, the patient is being seen for a follow-up. The patient had transferred out of the intensive care unit yesterday. He is alert and communicating. There is some limited baseline confusion. No agitation. No significant respiratory distress. Awaiting labs from today. The patient remains on D5 water. The patient remains on Levemir insulin. Recovered from his DKA. He is able to swallow and he has been provided a diet. No other significant events overnight. The patient remains on IV cefepime regarding bilateral pneumonia. The patient remains on DuoNeb nebulized treatments [id number]. Remains on anticoagulation with Eliquis. Remains on Levemir insulin 15 units at bedtime and NovoLog sliding scale coverage. Remains on IV Protonix. Patient was placed today on 09/15/2023, patient is being followed for his initial presentation with DKA and questionable left lower lobe pneumonia. Patient is doing well today, on 2 L nasal cannula, O2 saturation 93%. Does not seem to be in any form of distress. His sugar today is 294, his anion gap was nonexistent on the labs noted yesterday, and his BUN is 24 creatinine 0.82. Patient remains on amiodarone, Eliquis, he is also on cefepime and fark [employer]. In addition the patient is on DuoNeb updraft 4 times daily and as needed. And on Levemir insulin as well as insulin scale. Patient was evaluated today on 09/16/2023, patient is doing well, relatively asymptomatic, on 2 L nasal cannula O2 sat is 97%. He is hemodynamically stable, blood sugars have been in the range of 144 up to 200 his WBC count is 8.4 hemoglobin is 10 electrolytes are normal except for low potassium of 2.9 his last chest x-ray from 09/12 showed possible left lower lobe pneumonia Patient was evaluated today on 09/17/2023, pulmonary rosario the patient is doing well, does not seem to be in distress, however he is complaining of back pain and rectal pain, his CT of the pelvis showed wall thickening of the rectum/sigmoid colon. Otherwise the patient is doing well, and his abnormal CT of the pelvis is being addressed by surgery on the case. Patient is being considered for colonoscopy and Eliquis will be placed on hold Objective - Vital Signs Vital signs: Vital Signs Temp 97.8 F 09/17/23 11:57 Pulse 75 09/17/23 12:04 Resp 18 09/17/23 11:57 BP 184/88 09/17/23 11:57 Pulse Ox 100 09/17/23 11:57 FiO2 35 09/12/23 09:07 Intake & Output 09/16/23 09/17/23 09/17/23 18:59 06:59 18:59 Intake Total 1076 250 Output Total 800 1350 Balance 276 -1350 250 Intake: Oral 1076 250 Output: Urine 800 1350 Other: Voiding Method External Catheter Indwelling Catheter Indwelling Catheter # Bowel Movements 1 1 ABP, PAP, CO, CI - Last Documented Arterial Blood Pressure 121/60 - Exam GENERAL EXAM: 67-year-old white male in no distress, on 2 L nasal cannula O2 saturation is 100% HEAD: Normocephalic and atraumatic EYES: Within normal NOSE: Clear with pink turbinates. THROAT: No erythema or exudates. Dry mucous membranes. NECK: No masses, no JVD. CHEST: No chest wall deformity. LUNGS: Diminished breath sounds at the bases no crackles rhonchi or wheezes CVS: S1 and S2 normal with no soft systolic murmur, regular rhythm. No extra heart sounds ABDOMEN: Abdomen flat, active bowel sounds, no hepatosplenomegaly, no guarding or rigidity. SKIN: No rashes CENTRAL NERVOUS SYSTEM: Alert and oriented x 3 no gross focal deficit EXTREMITIES: no clubbing, no cyanosis, trace of bipedal edema. - Labs CBC & Chem 7: 09/16/23 10:29 09/17/23 06:27 Labs: Abnormal Lab Results - Last 24 Hours (Table) 09/16/23 09/16/23 09/17/23 Range/Units 16:35 20:12 06:20 Chloride (98-107) mmol/L Glucose (74-99) mg/dL POC Glucose (mg/dL) 287 H 243 H 163 H (70-110) mg/dL Calcium (8.4-10.2) mg/dL 09/17/23 09/17/23 Range/Units 06:27 11:53 Chloride 115 H (98-107) mmol/L Glucose 157 H (74-99) mg/dL POC Glucose (mg/dL) 123 H (70-110) mg/dL Calcium 7.7 L (8.4-10.2) mg/dL Microbiology - Last 24 Hours (Table) 09/11/23 10:16 Blood Culture - Final Blood Assessment and Plan Assessment: Impression: Acute diabetic ketoacidosis, resolved Hypovolemic shock on presentation, resolved Acute respiratory failure with lower lobe patchy infiltrate/pneumonia. Polymicrobial growth on the sputum culture and the patient remains on IV cefepime, patient required intubation mechanical ventilation initially, resolved acute metabolic encephalopathy, resolved Acute rhabdomyolysis Fever, secondary to above, resolved patient remains on cefepime Encephalopathy, rule out anoxic encephalopathy. Mental status is improving Acute rhabdomyolysis, CPK level were elevated. Improving Acute kidney injury, secondary to combination of above, renal function is improving Elevated troponins, likely supply/demand mismatch History of type 2 diabetes mellitus History of bilateral great toe amputations History of hyperlipidemia History of coronary artery disease with previous PCI/stent History of seizure disorder, no seizure activity noted LV dysfunction with ejection fraction of 40 to 45% Recommendation: Patient is being considered for colonoscopy because of rectal pain and abnormal thickening of the sigmoid colon Continue present supportive care measures Continue oxygen via nasal cannula and titrate accordingly Continue Levemir insulin and sliding scale/NovoLog insulin Continue antibiotics/cefepime for questionable left lower lobe pneumonia Will continue to follow Time with Patient: Less than 30
[2023-09-17 16:47] LABS: Glucose,Whole Blood 190 mg/dL (70-110)
[2023-09-17 20:16] LABS: Glucose,Whole Blood 184 mg/dL (70-110)
[2023-09-18 06:01] LABS: Glucose,Whole Blood 98 mg/dL (70-110)
[2023-09-18 08:36] LABS: HCT 33.7 % (39.0-53.0); HGB 10.2 gm/dL (13.0-17.5); Hypochromasia Slight; MCH 28.8 pg (25.0-35.0); MCHC 30.4 g/dL (31.0-37.0); MCV 94.6 fL (80.0-100.0); Platelet Count 193 k/uL (150-450); RBC 3.56 m/uL (4.30-5.90); RDW 13.3 % (11.5-15.5); WBC 8.6 k/uL (3.8-10.6)
[2023-09-18 08:45] LABS: African American GFR (CKD) >90 (>60 ml/min/1.73 sqM); Anion Gap 6 mmol/L; Blood Urea Nitrogen 13 mg/dL (9-20); Calcium 7.8 mg/dL (8.4-10.2); Carbon Dioxide 21 mmol/L (22-30); Chloride 114 mmol/L (98-107); Glucose 104 mg/dL (74-99); Non-African American GFR(CKD) >90 (>60 ml/min/1.73 sqM); Potassium 3.5 mmol/L (3.5-5.1); Sodium 141 mmol/L (137-145)
--- NOTE | 2023-09-18 09:51 | P.PN ---
Subjective Progress Note Date: 09/17/23 09/17/2023: Patient was seen for a follow-up. Patient states he continues to have pain in the rectal region 12/17. No other concerns. 09/16/2023: Patient was initially seen by Dr. Edvin Espinoza. Please refer to his note for details. Patient is a 67-year-old male with acute DKA. EEG was negative for seizures. Patient has history of seizures and takes Keppra. Patient had fever but appears to be from aspiration pneumonia. Infectious disease had recommended lumbar puncture but patient had refused. Mentation is improving. Patient was seen for a follow-up. Patient is laying in the bed. States feeling "not good". Patient complaining of very severe pain involving his "butt and back". He points that to between his buttocks, perhaps in the rectal region. He claims the pain is "bad", rates 10/10. He states he cannot even sit as it hurts so bad. He could not even turn to show me where the exact pain is. He denies any headache. He is fully oriented as mentioned below. Patient states regarding his bowel movement, he cannot tell as much when it is coming. Some of the work-up during this hospital visit consisted of: Tmax is past 24 hours are 100.4 Yesterday at 5am temperature of 103.0 wbc has been normal. He has thrombocytopenia TSH is 1.350 clinically ammonia level is less than 9 CK level is 882-->214 Vitamin B12: [address] of the head is reported as no acute intracranial hemorrhage or midline shift. There is mild diffuse age-related cerebral atrophy and mild to moderate probable chronic small vessel ischemic change redemonstrated. No significant change from most recent prior CT. Personally reviewed the CT and I agree there is no acute or subacute ischemia. Echo is reported as technically difficult study. Limited study. Overall left ventricle systolic function moderately impaired. Routine EEG: Is abnormal. The background slowing is suggestive of severe encephalopathy likely due to toxic-metabolic derrangement. Otherwise, there is no focal slowing, epileptiform discharges or seizure on the EEG. Blood culture is E. Coli, staph aureus and Strep agalctiae CXR: Similar patch density medial left base. Increasing patchy atelectasis/infiltrate at right base. Objective - Vital Signs Vital signs: Vital Signs Temp 97.8 F 09/17/23 11:57 Pulse 75 09/17/23 12:04 Resp 18 09/17/23 11:57 BP 184/88 09/17/23 11:57 Pulse Ox 100 09/17/23 11:57 FiO2 35 09/12/23 09:07 Intake & Output 09/16/23 09/17/23 09/17/23 18:59 06:59 18:59 Intake Total 1076 100 Output Total 800 1350 Balance 276 -1350 100 Intake: Oral 1076 100 Output: Urine 800 1350 Other: Voiding Method External Catheter Indwelling Catheter Indwelling Catheter # Bowel Movements 1 1 1 ABP, PAP, CO, CI - Last Documented Arterial Blood Pressure 121/60 - Exam Patient is alert and awake fairly well-oriented. He knows it is September 2023 and that he has not a hospital in [place] in [place]. Speech and language functions are normal. His cranial nerves are normal. Visual thomas are full. Face is symmetric. On muscle strength testing (right/left) deltoid 4/4, biceps 4+/4+, triceps 4+/4+5-, plant worker 4+/4+, hip flexion 2/2, ankle dorsiflexion 1-2/1-2. Reflexes are absent all over. He has amputated big toes bilaterally. - Labs CBC & Chem 7: 09/18/23 08:14 09/18/23 08:14 Labs: Abnormal Lab Results - Last 24 Hours (Table) 09/16/23 09/16/23 09/17/23 Range/Units 16:35 20:12 06:20 Chloride (98-107) mmol/L Glucose (74-99) mg/dL POC Glucose (mg/dL) 287 H 243 H 163 H (70-110) mg/dL Calcium (8.4-10.2) mg/dL 09/17/23 09/17/23 Range/Units 06:27 11:53 Chloride 115 H (98-107) mmol/L Glucose 157 H (74-99) mg/dL POC Glucose (mg/dL) 123 H (70-110) mg/dL Calcium 7.7 L (8.4-10.2) mg/dL Microbiology - Last 24 Hours (Table) 09/11/23 10:16 Blood Culture - Final Blood Assessment and Plan Assessment: Altered Mental status, likely due to metabolic encephalopathy. Resolved. New onset severe pain in the rectal region, CT pelvis showing wall thickening of the rectum/sigmoid colon. Pyrexia likely due to septicemia and probable aspiration pneumonia Respiratory failure, status postextubation on 09/12/2023 Acute Diabetic ketoacidosis--resolved Hypernatremia, resolved Hyermagnesemia, resolved Hypophosphatemia Acute kidney injury--resolved Severe anion gap metabolic acidosis, resolved Acute rhabdomyolysis--resolved Uncontrolled diabetes mellitus and hemoglobin A1c is 11.9 History of seizure disorder and is on Keppra History of amputation of the big toes of both feet. Plan: Patient's mentation has remarkably improved. He is fully oriented. Patient had two CT head which are negative for acute process. EEG is severe encephalopathy but no seizure or discharges appreciated Is on home dose of Keppra 500 mg twice a day. Patient is on aspirin 81 mg and Lipitor 40 mg nightly. Patient denies headache. No indication for lumbar puncture. Patient was complaining of severe pain in the rectal region. This prompted testing as below. CT of the lumbar spine showed no evidence for spinal fracture. Moderate degeneration changes of the spine without evidence for significant spinal canal stenosis. Moderate bilateral L5-S1 and L4-L5 neural foraminal stenosis. Bilateral lung base consolidation possibly representing atelectasis with superimposed infection not excluded. Trace pleural effusion. CT of the pelvis revealed circumferential wall thickening of the rectum/sigmoid colon, correlate for proctitis. Prominent mesenteric lymph nodes around the rectum also present. Direct visualization if not recently performed recommended to rule out mass. Colonic diverticulosis. Fat-containing right inguinal hernia, no evidence of fracture. Mild to moderate bilateral hip osteoarthrosis and moderate degeneration changes of the spine. Surgery consulted for possible rectal mass. Thrombocytopenia much better, with platelets 146. Regarding DVT prophylaxis, we will defer to IM because of history of thrombocytopenia. Will defer the rest of the medical management to primary and other specialists.
[2023-09-18 11:35] LABS: Glucose,Whole Blood 127 mg/dL (70-110)
--- NOTE | 2023-09-18 14:54 | P.PN ---
Subjective Progress Note Date: 09/18/23 Principal diagnosis: Acute diabetic ketoacidosis and acute left lower lobe pneumonia with polymicrobial growth on the sputum Patient is a 67-year-old male with past medical history significant for diabetes mellitus, prior toe amputations, hyperlipidemia, coronary artery disease with previous stents, and seizure disorder. He is currently intubated to the mechanical ventilator, unresponsive without any sedation, unable to provide any information. Patient was transferred from [facility] late last night. Apparently, found unresponsive by his girlfriend, and last known well was 24 hours prior. Patient was intubated by EMS on arrival and triaged to [facility]. Initial presentation was consistent with DKA. Subsequently, the patient was transferred to [facility]. Patient is currently in trauma bay 1, he is intubated mechanical ventilator. Chest x-ray on arrival to our facility shows the endotracheal tube in satisfactory position approximately 4 cm above the mahesh. There is an orogastric tube that should be advanced. Right IJ central line catheter appears to terminate at the Cavo atrial junction. No focal infiltrates or evidence of pneumonia. Current ventilator settings are assist-control, respiratory rate 14, tidal volume 500, FiO2 35%, PEEP of 5. He is breathing slightly above set rate. Not on any sedation. Remains unresponsive even to deep painful stimuli. CT of the brain did not show any acute intracranial hemorrhage or mass effect. ABG is consistent with profound metabolic acidosis, with a PaO2 of 204, pCO2 of 25, pH of 7.04. Patient has been given a total of 2 A of bicarb. He is hypotensive and in a shock state, he has been fluid resuscitated with at least 2.5 L crystalloid fluid. No insulin infusion is currently ordered. He remains profoundly hypotensive, and has been started on norepinephrine which is currently infusing at 0.06 mcg/kg/min. CBC: WBC count 8.8, hemoglobin 14.5, hematocrit 50.3, platelets 136. CMP: Sodium 143, potassium 5.2, chloride 115, serum bicarb less than 5, anion gap unmeasurable, BUN 134, creatinine 4.29, glucose 910. Lactic 1.1. LFTs not elevated. Total bilirubin 0.7. Ammonia less than 9. CPK was 882. Troponin 0.084. NT BNP 2720. EKG shows normal sinus rhythm and is nondiagnostic for acute ischemia. Urinalysis positive for glucose and ketones. Urine toxicology screen at outside facility was essentially negative. Serum alcohol less than 10. Patient will be admitted to the intensive care unit once bed available. Today's evaluation of 09/09/2023, the patient is being seen for a follow-up. The patient remains off sedatives. He is grimacing to painful stimulation. He did have a CAT scan of the brain yesterday that showed no acute abnormalities. Suspect a component of hypoxic encephalopathy as the patient apparently was hypoxic when the patient was picked up by the EMS. At this point in time, the patient is grimacing only to deep painful stimulation. Not following any commands yet. The patient has recovered from his anion gap metabolic acidosis related to DKA. The patient is currently on half-normal saline at rate of 100 cc an hour. Most recent blood work shows a gap of 6 with a serum bicarb of 17. Sodium levels at 151. Potassium level at 3.3 which is being replaced. Blood sugars 879. The patient remains on insulin drip and the patient will be transition to long-acting insulin. Remains on the mechanical ventilator assist- control mode at rate of 20, tidal volume of 500, FiO2 of 35% with a PEEP of 5. Blood gas showed a pH of 7.4 with a pCO2 of 29 and pO2 of 103. The patient was tachypneic volume second mechanical ventilation the patient was switched to pressure control. CVP was 2 and after receiving a total of 3 L of fluid and the CVP came up to 8 and the patient has been off pressors since 11:30 PM yesterday. Cardiac rhythm is sinus. The patient is completing albuterol and loading and the patient is currently on 0.5 mg/min. Echocardiogram was done and patient has an ejection fraction of 40 to 45%. The white cell count today is at 5 with a hemoglobin of 12 and a platelet count of 62. Chest x-ray findings are stable. Some atelectatic changes in lung base bilaterally. No antibiotic coverage at this point in time. Sputum is showing gram-negative bacillus and presumptive Staph aureus. 09/10/2023, I am seeing the patient for a follow-up. The patient remains encephalopathic. He grimaces to painful stimulation in all 4 extremities and is withdrawing to pain. Nevertheless, does not follow any commands. His mobility is less in his lower extremities compared to the upper extremities. No seizure activity has been noted. CAT scan of the brain was negative. EEG showed moderate to severe encephalopathy. Suspect hypoxic encephalopathy. Meanwhile, the patient remains intubated on mechanical ventilator. On today's evaluation, he is on no sedation. He is on pressure control mode of mechanical ventilation at rate of 20, pressure control of 15, inspiratory time 0.9 with an FiO2 of 35% and a PEEP of 5. Blood gases from today showed a pH of 7.45 with a pCO2 of 25 and a pO2 of 97. Chest x-ray findings are stable and there is no significant interval change and there is no definite acute process. Based on the positive sputum culture, the patient was started on IV cefepime. Sputum sample was positive for a combination of bacteria including E. coli, Staph aureus/MSSA and Streptococcus. He is afebrile. Hemodynamically stable and he is on no pressors. In fact, he has developed some hypochloremic hyponatremia. He remains on half-normal saline at rate of 100 cc an hour. BUN 64 with a creatinine of 1.46 and a sodium level at 152 and a chloride level is 128. Potassium is at 3.5. WBC count is at 4.7 with a hemoglobin of 1.4 and a platelet count of 49. The patient's blood sugar is at 281. The patient remains on Levemir insulin which is at 15 units and the patient is also on sliding scale coverage. The patient is sitting enteral feeding for nutritional support and the patient is on Glucerna at a rate of 31 cc an hour. On 09/11/2023, the patient is being seen for a follow-up. Opening of his eyes. Not following commands consistently. Remains on mechanical ventilator. Currently is on a pressure control mode with rate of 20, pressure of 50 cm of water, respiratory exam of 0.9, FiO2 35% with a PEEP of 5. Blood gas showed a pH of 7.44 with episodes of 32 and pO2 of 109. Chest x-ray findings are stable. Hemodynamically stable. No pressors. He is on no sedative medications for now. Afebrile. Remains on IV cefepime. White cell count is 7.4, hemoglobin is 11.5 and a platelet count of 59. Sodium is 155, potassium is at 4, chloride is 131, BUN is 51 with a creatinine 1.2. LFTs are stable, CPK is down to 214. The patient is running a low-grade fever. Remains on IV cefepime. Sputum culture was polymicrobial including E. coli, Streptococcus and MSSA. Further blood cultures have been sent. No pressors for now. He is currently on Levemir insulin and sliding scale insulin coverage. The patient is also on Glucerna for enteral feeding and nutritional support she is currently at goal at 54 cc an hour. 09/12/2023, I am seeing the patient for a follow-up. The patient is off sedation. The patient is awake and alert and the patient has been on a pressure support mode of mechanical ventilation throughout the night. The patient is currently on a PSV of 7 and a PEEP of 5. The patient is following simple commands. Blood gas from today shows a pH of 7.41 with a pCO2 of 37 and pO2 of 94. Chest x-ray showing a right lower lobe consolidation which could be an area of pneumonia. The patient is currently afebrile. The patient remains on IV cefepime. The tube feeds are currently on hold in anticipation for possible extubation today. Meanwhile, the patient's blood work shows a white cell count of 6.5, hemoglobin 10.7 and a platelet count of 59. Sodium is currently down to 151. BUN is 46 with a creatinine of 1.1. LFTs are normal. Renal function is normal. CPK is down to 81. No other significant events overnight. Hemodynamically stable. Cardiac rhythm is sinus. 09/13/2023, the patient is being seen for the follow-up. The patient was weaned off the mechanical ventilator and the patient was extubated. On today's evaluation, he is alert and awake and is communicating. Nevertheless, he does have some confusion. He is alert and oriented x 1. No signs of respiratory distress. Continues to have a cough and nasal congestion and a chest x-ray from today is essentially unchanged and the patient has stable patchy opacities in the lung base bilaterally. Remains on IV cefepime. Hemodynamically stable. Sodium level is improving and currently is down to 149. Blood sugars under adequate control and the patient is using Levemir insulin 30 units in addition to NovoLog 4 times a day and a sliding scale coverage. Renal function has normalized. No pressors for now. No fever. Remains on D5 water at the rate of 100 cc an hour. 09/14/2023, the patient is being seen for a follow-up. The patient had transferred out of the intensive care unit yesterday. He is alert and communicating. There is some limited baseline confusion. No agitation. No significant respiratory distress. Awaiting labs from today. The patient remains on D5 water. The patient remains on Levemir insulin. Recovered from his DKA. He is able to swallow and he has been provided a diet. No other significant events overnight. The patient remains on IV cefepime regarding bilateral pneumonia. The patient remains on DuoNeb nebulized treatments [id number]. Remains on anticoagulation with Eliquis. Remains on Levemir insulin 15 units at bedtime and NovoLog sliding scale coverage. Remains on IV Protonix. Patient was placed today on 09/15/2023, patient is being followed for his initial presentation with DKA and questionable left lower lobe pneumonia. Patient is doing well today, on 2 L nasal cannula, O2 saturation 93%. Does not seem to be in any form of distress. His sugar today is 294, his anion gap was nonexistent on the labs noted yesterday, and his BUN is 24 creatinine 0.82. Patient remains on amiodarone, Eliquis, he is also on cefepime and fark [employer]. In addition the patient is on DuoNeb updraft 4 times daily and as needed. And on Levemir insulin as well as insulin scale. Patient was evaluated today on 09/16/2023, patient is doing well, relatively asymptomatic, on 2 L nasal cannula O2 sat is 97%. He is hemodynamically stable, blood sugars have been in the range of 144 up to 200 his WBC count is 8.4 hemoglobin is 10 electrolytes are normal except for low potassium of 2.9 his last chest x-ray from 09/12 showed possible left lower lobe pneumonia Patient was evaluated today on 09/17/2023, pulmonary rosario the patient is doing well, does not seem to be in distress, however he is complaining of back pain and rectal pain, his CT of the pelvis showed wall thickening of the rectum/sigmoid colon. Otherwise the patient is doing well, and his abnormal CT of the pelvis is being addressed by surgery on the case. Patient is being considered for colonoscopy and Eliquis will be placed on hold Patient was evaluated today on 09/18/2023, patient is about the same, continues to have some discomfort in his back and in his rectal area, supposed to have colonoscopy tomorrow. Eliquis remains on hold. Patient has no active pulmonary issues. WBC count is 8.6 hemoglobin 10.2 electrolytes are normal renal profile is normal Objective - Vital Signs Vital signs: Vital Signs Temp 98.5 F 09/18/23 08:00 Pulse 73 09/18/23 14:00 Resp 18 09/18/23 14:00 BP 172/82 09/18/23 12:00 Pulse Ox 100 09/18/23 12:00 FiO2 35 09/12/23 09:07 Intake & Output 09/17/23 09/18/23 09/18/23 18:59 06:59 18:59 Intake Total 800 236 Output Total 1850 500 Balance 800 -1850 -264 Weight 96.8 kg Intake: Oral 800 236 Output: Urine 1850 500 Other: Voiding Method Indwelling Catheter Indwelling Catheter Indwelling Catheter # Bowel Movements 1 ABP, PAP, CO, CI - Last Documented Arterial Blood Pressure 121/60 - Exam GENERAL EXAM: 67-year-old white male in no distress, on 2 L nasal cannula O2 saturation is 100% HEAD: Normocephalic and atraumatic EYES: Within normal NOSE: Clear with pink turbinates. THROAT: No erythema or exudates. Dry mucous membranes. NECK: No masses, no JVD. CHEST: No chest wall deformity. LUNGS: Diminished breath sounds at the bases no crackles rhonchi or wheezes CVS: S1 and S2 normal with no soft systolic murmur, regular rhythm. No extra heart sounds ABDOMEN: Abdomen flat, active bowel sounds, no hepatosplenomegaly, no guarding or rigidity. SKIN: No rashes CENTRAL NERVOUS SYSTEM: Alert and oriented x 3 no gross focal deficit EXTREMITIES: no clubbing, no cyanosis, trace of bipedal edema. - Labs CBC & Chem 7: 09/18/23 08:14 09/18/23 08:14 Labs: Abnormal Lab Results - Last 24 Hours (Table) 09/17/23 09/17/23 09/18/23 Range/Units 16:46 20:14 08:14 RBC 3.56 L (4.30-5.90) m/uL Hgb 10.2 L (13.0-17.5) gm/dL Hct 33.7 L (39.0-53.0) % MCHC 30.4 L (31.0-37.0) g/dL Chloride (98-107) mmol/L Carbon Dioxide (22-30) mmol/L Glucose (74-99) mg/dL POC Glucose (mg/dL) 190 H 184 H (70-110) mg/dL Calcium (8.4-10.2) mg/dL 09/18/23 09/18/23 Range/Units 08:14 11:33 RBC (4.30-5.90) m/uL Hgb (13.0-17.5) gm/dL Hct (39.0-53.0) % MCHC (31.0-37.0) g/dL Chloride 114 H (98-107) mmol/L Carbon Dioxide 21 L (22-30) mmol/L Glucose 104 H (74-99) mg/dL POC Glucose (mg/dL) 127 H (70-110) mg/dL Calcium 7.8 L (8.4-10.2) mg/dL Assessment and Plan Assessment: Impression: Acute diabetic ketoacidosis, resolved Hypovolemic shock on presentation, resolved Acute respiratory failure with lower lobe patchy infiltrate/pneumonia. Polymicrobial growth on the sputum culture and the patient remains on IV cefepime, patient required intubation mechanical ventilation initially, resolved acute metabolic encephalopathy, resolved Acute rhabdomyolysis Fever, secondary to above, resolved patient remains on cefepime Encephalopathy, rule out anoxic encephalopathy. Mental status is improving Acute rhabdomyolysis, CPK level were elevated. Improving Acute kidney injury, secondary to combination of above, renal function is improving Elevated troponins, likely supply/demand mismatch History of type 2 diabetes mellitus History of bilateral great toe amputations History of hyperlipidemia History of coronary artery disease with previous PCI/stent History of seizure disorder, no seizure activity noted LV dysfunction with ejection fraction of 40 to 45% Recommendation: Colonoscopy in a.m. Continue present supportive care measures Continue oxygen via nasal cannula and titrate accordingly Continue Levemir insulin and sliding scale/NovoLog insulin Continue antibiotics/cefepime for questionable left lower lobe pneumonia Will recommend follow-up chest x-ray in a.m. or today. Will continue to follow Time with Patient: Less than 30
--- NOTE | 2023-09-18 15:14 | P.PN ---
Subjective Progress Note Date: 09/18/23 CHIEF COMPLAINT: rectal pain HISTORY OF PRESENT ILLNESS: 67-year-old male admitted to the hospital for DKA. He has been complain of rectal pain. CT scan with wall thickening noted at the rectum. Patient having bowel movements. No blood reported in the stools. Eliquis has been on hold since yesterday morning. WBC 8.6 Hgb 10.2 potassium 3.5 PHYSICAL EXAM: VITAL SIGNS: Reviewed GENERAL: Well-developed in no acute distress. HEENT: No sclera icterus. Extraocular movements grossly intact. Moist buccal mucosa. Head is atraumatic, normocephalic. Hears conversational speech. No nasal drainage. NECK: Supple without lymphadenopathy. CHEST: Non-labored respirations and equal bilateral excursions. CARDIOVASCULAR: Palpable 2+ radial pulses. ABDOMEN: Soft. Nondistended. Mild tenderness across lower abdomen MUSCULOSKELETAL: No clubbing or cyanosis. NEUROLOGIC: No focal or lateralizing signs. Cranial nerves II through XII grossly intact. PSYCH: Appropriate affect. Alert and oriented to person, place and time. SKIN: Well perfused. Good skin turgor. ASSESSMENT: 1. Rectal pain. CT pelvis reporting wall thickening of the rectum/sigmoid colon 2. Fat-containing right inguinal hernia noted on CT 3. Acute diabetic ketoacidosis on admission 4. Acute respiratory failure with pneumonia 5. Acute rhabdomyolysis 6. Metabolic encephalopathy 7. Acute kidney injury 8. Acute rhabdomyolysis 9. Coronary disease with cardiac stent history 10. History of EF of 40 to 45% 11. History of Afib PLAN: -Patient scheduled for colonoscopy tomorrow with Dr. De La Cruz -Start clear liquid diet -Bowel prep ordered which includes Nulytely, lactulose and milk of mag -N.p.o. after midnight -Hold Eliquis -Hold Questran for colonoscopy -Replace potassium -Repeat labs in a.m. Physician [employer] note has been reviewed by physician. Signing provider agrees with the documented findings, assessment, and plan of care. Objective - Vital Signs Vital signs: Vital Signs Temp 98.5 F 09/18/23 08:00 Pulse 73 09/18/23 14:00 Resp 18 09/18/23 14:00 BP 172/82 09/18/23 12:00 Pulse Ox 100 09/18/23 12:00 FiO2 35 07/05/24 09:07 Intake & Output 09/17/23 09/18/23 09/18/23 18:59 06:59 18:59 Intake Total 800 236 Output Total 1850 500 Balance 800 -1850 -264 Weight 96.8 kg Intake: Oral 800 236 Output: Urine 1850 500 Other: Voiding Method Indwelling Catheter Indwelling Catheter Indwelling Catheter # Bowel Movements 1 ABP, PAP, CO, CI - Last Documented Arterial Blood Pressure 121/60 - Labs CBC & Chem 7: 09/18/23 08:14 09/18/23 08:14 Labs: Abnormal Lab Results - Last 24 Hours (Table) 09/17/23 09/17/23 09/18/23 Range/Units 16:46 20:14 08:14 RBC 3.56 L (4.30-5.90) m/uL Hgb 10.2 L (13.0-17.5) gm/dL Hct 33.7 L (39.0-53.0) % MCHC 30.4 L (31.0-37.0) g/dL Chloride (98-107) mmol/L Carbon Dioxide (22-30) mmol/L Glucose (74-99) mg/dL POC Glucose (mg/dL) 190 H 184 H (70-110) mg/dL Calcium (8.4-10.2) mg/dL 09/18/23 09/18/23 Range/Units 08:14 11:33 RBC (4.30-5.90) m/uL Hgb (13.0-17.5) gm/dL Hct (39.0-53.0) % MCHC (31.0-37.0) g/dL Chloride 114 H (98-107) mmol/L Carbon Dioxide 21 L (22-30) mmol/L Glucose 104 H (74-99) mg/dL POC Glucose (mg/dL) 127 H (70-110) mg/dL Calcium 7.8 L (8.4-10.2) mg/dL
--- NOTE | 2023-09-18 15:41 | P.PN ---
Subjective Progress Note Date: 09/17/23 H&P Date: 09/08/23 Chief Complaint: DKA, hypotension, shock This is a 67-year-old gentleman with past medical history significant for diabetes mellitus, bilateral great toe amputations, CAD, [place], seizure disorder,intubated in the field, transferred from [place] [facility], admitted with significant DKA, hypotension, shock and multiple other medical issues. C urrently in the ICU, remains vent dependent on 35% FiO2 +5 of PEEP. Maintained on Levophed, bicarb, vasopressin, amiodarone and insulin drips as well as D5.45 NS IV fluids. Requiring Flores hugger. Patient has not seen PCP since June 2022, had proceeded to live at [facility] in [place]. ICU staff reports significant other reported that patient became unhappy living at the [facility], came to live with her, patient was sick for approximately 4 days and she discovered him unresponsive on her couch. Unresponsive with the exception of winces at noxious stimuli, no spontaneous eye-opening. Brain CT reported no acute intracranial hemorrhage or midline shift, mild diffuse age- related cerebral atrophy and moderate probable chronic small vessel ischemic change redemonstrated. ABGs on arrival reported pH 7.04, pCO2 25, pO2 204, bicarb 7, total CO2 8, O2 sat 99.7, base excess -22.6 on 35% FiO2. chest x-ray reported lungs clear, no infiltrates, cardiac silhouette size within normal limits. Outside toxicology reported as negative;serum alcohol less than 10. received 3 L crystalloids, 1 L saline bolus, 2 g bicarb in the ER with pressors initiated. Procalcitonin 0.29, WBC count 8.0, hemoglobin 14.4, platelets 127,Sodium 143,151, potassium 5.2, 3.2, chloride 115,124, bicarb less than 5, 18, anion gap unmeasurable, 9, BUN 134, 110, creatinine 4.29, 2.76, glucose 910, 332. Lactic 1.1. LFTs WNL. Ammonia less than 9. CPK 882, 1068. Troponin 0.084. NT BNP 2720. EKG reported normal sinus rhythm. UA positive for hyaline casts, ketones ,glucose, and protein. Negative for nitrates. No seizure activity reported. 09/09/2023 paroxysmal atrial fibrillation with RVR, maintained on amiodarone drip ,telemetry currently sinus rhythm. vasopressors weaned off late last night. Remains ventilator dependent with FiO2 35%/+5 of PEEP. Chest x-ray reported suspected underlying COPD, mild patchy medial basilar densities, likely atelectasis .echo reporting technically difficult study , moderately impaired LV function EF of 40-45%. Hemoglobin A1c 11.9. Continues on insulin drip. Anion gap 6, bicarb 17, blood sugars better controlled. Sodium 150, potassium 3.3 renal function improving, BUN 88, creatinine 1.9. Preliminary sputum culture growing gram-negative bacilli, presumptive Staph aureus, blood cultures in progress. Maxipime initiated. Brain CT repeated last night reporting no significant change from most recent prior CT. remains off of sedation, grimacin g to noxious stimuli. 09/10/2023 EEG reported abnormal, background slowing suggestive of severe ence phalopathy likely due to toxic metabolic derangement. Otherwise there is no focal slowing, epileptiform discharges or seizures on the EEG. Continues on Keppra -no seizure activity. Not following commands. Staff reports patient is opening eyes to voice. Grimaces to pain. Remains off pressors and vent dependent with FiO2 35%/+5 of PEEP. Chest x-ray pending. Tmax 100.3, normal WBC. Hemoglobin 11.4, platelets 49 . sputum culture reporting E. coli, Staphylococcus aureus/MSSA, strep agalactiae group B. Maintained on cefepime. Receiving IV fluid hydration of half-normal saline , sodium 152, chloride 128. renal function improving. bicarb 16, BUN 64, creatinine 1.46. On tube feeds of Glucerna ,blood sugars in the mid to low 200s, A1c 11.9. 09/15/2023 telemetry sinus rhythm. Continues on amiodarone, Farxiga. Anticoagulated on Eliquis. Confused this morning, alert and oriented to person, knows he is in the hospital but thinks he is in [place], [place]. Maintaining O2 sat of 94% on 2 L nasal cannula on cefepime and nebulized bronchodilators. Choking on applesauce during speech therapy's evaluation, modified barium swallow ordered. Blood sugars in the low 200s during the night, better controlled this morning, 132. Hemoglobin A1c 11.9. 09/16/2023 MBS results noted-speech therapy recommending ground meats, nectar liquids, no straw, liquids from cup, small bites and sips with direct supervision , sitting upright 90 degrees and ongoing speech therapy. O2 sats improved, 97% on 2 L nasal cannula. Maintained on cefepime as per ID, afebrile, normal WBC. Hemoglobin 10, platelets 146. Potassium 2.9-supplementation and magnesium level ordered. Blood sugars better controlled. Renal function stable. Telemetry sinus rhythm. PT pending. 09/17/2023 Maintained on cefepime.yesterday Ochoa catheter discontinued but patient developed urinary retention and Ochoa catheter reinserted .ongoing lower back and rectal pain. lumbar CT reported no evidence for spinal fracture, mo derate degeneration changes without evidence for significant spinal canal stenosis, moderate bilateral L5-S1 and L4-L5 neuroforaminal stenosis, bilateral lung consolidation possibly representing atelectasis with superimposed infection not excluded, trace right pleural effusion. Pelvis CT reporting circumferential wall thickening of the rectum/sigmoid colon , prominent mesenteric lymph nodes around the rectum also present direct visualization recommended to rule out mass, colonic diverticulosis, fat-containing right inguinal hernia, no evidence of fracture, mild to moderate bilateral hip osteoarthrosis and moderate degenerative changes of the spine. Vague historian, unsure of last colonoscopy. Denies nausea vomiting. Hemoglobin 10.2, platelets 193. Potassium 3.5- supplemented, renal function stable. Objective - Vital Signs Vital signs: Vital Signs Temp 97.9 F 09/17/23 16:00 Pulse 87 09/17/23 16:00 Resp 22 09/17/23 16:00 BP 180/84 09/17/23 16:00 Pulse Ox 94 L 09/17/23 16:00 FiO2 35 09/12/23 09:07 Intake & Output 09/16/23 09/17/23 09/17/23 18:59 06:59 18:59 Intake Total 1076 650 Output Total 800 1350 Balance 276 -1350 650 Intake: Oral 1076 650 Output: Urine 800 1350 Other: Voiding Method External Catheter Indwelling Catheter Indwelling Catheter # Bowel Movements 1 1 1 ABP, PAP, CO, CI - Last Documented Arterial Blood Pressure 121/60 - Labs CBC & Chem 7: 09/18/23 08:14 09/18/23 08:14 Labs: Abnormal Lab Results - Last 24 Hours (Table) 09/16/23 09/17/23 09/17/23 Range/Units 20:12 06:20 06:27 Chloride 115 H (98-107) mmol/L Glucose 157 H (74-99) mg/dL POC Glucose (mg/dL) 243 H 163 H (70-110) mg/dL Calcium 7.7 L (8.4-10.2) mg/dL 09/17/23 09/17/23 Range/Units 11:53 16:46 Chloride (98-107) mmol/L Glucose (74-99) mg/dL POC Glucose (mg/dL) 123 H 190 H (70-110) mg/dL Calcium (8.4-10.2) mg/dL Microbiology - Last 24 Hours (Table) 09/11/23 10:16 Blood Culture - Final Blood Assessment and Plan Assessment: Acute DKA, anion gap closed , resolved Severe anion gap metabolic acidosis secondary to the above, status post bicarb d rip. Hypotensive ,hypovolemic shock, status post pressor dependent, resolved Acute hypoxic respiratory failure, status post mechanical ventilator dependent. Acute left lower lobe pneumonia as per pulmonary, sputum culture, polymicrobial, reporting E. coli, Staphylococcus aureus-MSSA, strep agalactiae group B. Dysphagia, delayed swallowing, MBS completed-speech recommending dysphagia level 2 diet, one-to-one supervision, aspiration precautions Rectal pain, wall thickening of the rectum/sigmoid colon reported per CT Fat-containing right inguinal hernia reported per CT Hyperchloremic hypernatremia, resolved. Thrombocytopenia Paroxysmal atrial fibrillation Sepsis, secondary to all the above, resolved. Acute metabolic encephalopathy secondary to all the above, suspect anoxic. Brain CT did not report any acute abnormalities, EEG reported slowing suggestive of severe encephalopathy likely due to toxic metabolic derangement. Acute rhabdomyolysis Acute renal failure, improving Elevated troponin, multifactorial secondary to all the above, ACS ruled out,Type II [place] as per cardiology. Severe dehydration Diabetes mellitus type 2, hemoglobin A1c 11.9 CAD, history of [place], stent History of seizure disorder, on Keppra Stage I pressure ulcer, 1 cm near rectum Fungal rash, anterior scrotum Hypokalemia Plan: Continue on current medication resume ,monitoring and symptomatic treatment. Strict aspiration precautions.antibiotics per ID. General surgery consulted for abnormal pelvis CT .Eliquis placed on hold, potential colonoscopy. titrate O2. Maintain Levemir insulin and NovoLog sliding scale with close monitoring of blood sugars. PT/OT. Discharge planning in progress for subacute rehab. prognosis guarded, given multiple complex medical issues. The impression and plan of care has been dictated as directed. : I performed a history and examination of this patient, discussed the same with the dictator. I agree with the dictator's note ,documented as a scribe. Any additional findings or plans will be noted.
--- NOTE | 2023-09-18 16:02 | P.PN ---
Subjective Progress Note Date: 09/18/23 H&P Date: 09/08/23 Chief Complaint: DKA, hypotension, shock This is a 67-year-old gentleman with past medical history significant for diabetes mellitus, bilateral great toe amputations, CAD, [place], seizure disorder,intubated in the field, transferred from [place] [facility], admitted with significant DKA, hypotension, shock and multiple other medical issues. C urrently in the ICU, remains vent dependent on 35% FiO2 +5 of PEEP. Maintained on Levophed, bicarb, vasopressin, amiodarone and insulin drips as well as D5.45 NS IV fluids. Requiring Flores hugger. Patient has not seen PCP since June 2022, had proceeded to live at [facility] in [place]. ICU staff reports significant other reported that patient became unhappy living at the [facility], came to live with her, patient was sick for approximately 4 days and she discovered him unresponsive on her couch. Unresponsive with the exception of winces at noxious stimuli, no spontaneous eye-opening. Brain CT reported no acute intracranial hemorrhage or midline shift, mild diffuse age- related cerebral atrophy and moderate probable chronic small vessel ischemic change redemonstrated. ABGs on arrival reported pH 7.04, pCO2 25, pO2 204, bicarb 7, total CO2 8, O2 sat 99.7, base excess -22.6 on 35% FiO2. chest x-ray reported lungs clear, no infiltrates, cardiac silhouette size within normal limits. Outside toxicology reported as negative;serum alcohol less than 10. received 3 L crystalloids, 1 L saline bolus, 2 g bicarb in the ER with pressors initiated. Procalcitonin 0.29, WBC count 8.0, hemoglobin 14.4, platelets 127,Sodium 143,151, potassium 5.2, 3.2, chloride 115,124, bicarb less than 5, 18, anion gap unmeasurable, 9, BUN 134, 110, creatinine 4.29, 2.76, glucose 910, 332. Lactic 1.1. LFTs WNL. Ammonia less than 9. CPK 882, 1068. Troponin 0.084. NT BNP 2720. EKG reported normal sinus rhythm. UA positive for hyaline casts, ketones ,glucose, and protein. Negative for nitrates. No seizure activity reported. 09/09/2023 paroxysmal atrial fibrillation with RVR, maintained on amiodarone drip ,telemetry currently sinus rhythm. vasopressors weaned off late last night. Remains ventilator dependent with FiO2 35%/+5 of PEEP. Chest x-ray reported suspected underlying COPD, mild patchy medial basilar densities, likely atelectasis .echo reporting technically difficult study , moderately impaired LV function EF of 40-45%. Hemoglobin A1c 11.9. Continues on insulin drip. Anion gap 6, bicarb 17, blood sugars better controlled. Sodium 150, potassium 3.3 renal function improving, BUN 88, creatinine 1.9. Preliminary sputum culture growing gram-negative bacilli, presumptive Staph aureus, blood cultures in progress. Maxipime initiated. Brain CT repeated last night reporting no significant change from most recent prior CT. remains off of sedation, grimacin g to noxious stimuli. 09/10/2023 EEG reported abnormal, background slowing suggestive of severe ence phalopathy likely due to toxic metabolic derangement. Otherwise there is no focal slowing, epileptiform discharges or seizures on the EEG. Continues on Keppra -no seizure activity. Not following commands. Staff reports patient is opening eyes to voice. Grimaces to pain. Remains off pressors and vent dependent with FiO2 35%/+5 of PEEP. Chest x-ray pending. Tmax 100.3, normal WBC. Hemoglobin 11.4, platelets 49 . sputum culture reporting E. coli, Staphylococcus aureus/MSSA, strep agalactiae group B. Maintained on cefepime. Receiving IV fluid hydration of half-normal saline , sodium 152, chloride 128. renal function improving. bicarb 16, BUN 64, creatinine 1.46. On tube feeds of Glucerna ,blood sugars in the mid to low 200s, A1c 11.9. 09/15/2023 telemetry sinus rhythm. Continues on amiodarone, Farxiga. Anticoagulated on Eliquis. Confused this morning, alert and oriented to person, knows he is in the hospital but thinks he is in [place], [place]. Maintaining O2 sat of 94% on 2 L nasal cannula on cefepime and nebulized bronchodilators. Choking on applesauce during speech therapy's evaluation, modified barium swallow ordered. Blood sugars in the low 200s during the night, better controlled this morning, 132. Hemoglobin A1c 11.9. 09/16/2023 MBS results noted-speech therapy recommending ground meats, nectar liquids, no straw, liquids from cup, small bites and sips with direct supervision , sitting upright 90 degrees and ongoing speech therapy. O2 sats improved, 97% on 2 L nasal cannula. Maintained on cefepime as per ID, afebrile, normal WBC. Hemoglobin 10, platelets 146. Potassium 2.9-supplementation and magnesium level ordered. Blood sugars better controlled. Renal function stable. Telemetry sinus rhythm. PT pending. 09/17/2023 Maintained on cefepime.yesterday Ochoa catheter discontinued but patient developed urinary retention and Ochoa catheter reinserted .ongoing lower back and rectal pain. lumbar CT reported no evidence for spinal fracture, mo derate degeneration changes without evidence for significant spinal canal stenosis, moderate bilateral L5-S1 and L4-L5 neuroforaminal stenosis, bilateral lung consolidation possibly representing atelectasis with superimposed infection not excluded, trace right pleural effusion. Pelvis CT reporting circumferential wall thickening of the rectum/sigmoid colon , prominent mesenteric lymph nodes around the rectum also present direct visualization recommended to rule out mass, colonic diverticulosis, fat-containing right inguinal hernia, no evidence of fracture, mild to moderate bilateral hip osteoarthrosis and moderate degenerative changes of the spine. Vague historian, unsure of last colonoscopy. Denies nausea vomiting. Potassium 3.5-supplemented, renal function stable. 09/18/2023 continues to complain of back and rectal pain. Scarlet remains on hold, general surgery discussing colonoscopy for tomorrow. Renal function stable, Hemoglobin 10.2, platelets 193. Blood sugars controlled. Objective - Vital Signs Vital signs: Vital Signs Temp 98.5 F 09/18/23 08:00 Pulse 92 09/18/23 15:43 Resp 18 09/18/23 14:00 BP 172/82 09/18/23 12:00 Pulse Ox 100 09/18/23 12:00 FiO2 35 09/12/23 09:07 Intake & Output 09/17/23 09/18/23 09/18/23 18:59 06:59 18:59 Intake Total 800 236 Output Total 1850 500 Balance 800 -1850 -264 Weight 96.8 kg Intake: Oral 800 236 Output: Urine 1850 500 Other: Voiding Method Indwelling Catheter Indwelling Catheter Indwelling Catheter # Bowel Movements 1 ABP, PAP, CO, CI - Last Documented Arterial Blood Pressure 121/60 - Exam PHYSICAL EXAM: VITAL SIGNS: [As above] GENERAL: Alert and oriented X2, Slowly converses. HEENT: Normocephalic, atraumatic, eyes normal,MMM. NECK: Supple, no JVD. CARDIOVASCULAR: S1, S2 regular. Systolic murmur RESPIRATION: Unlabored, equal air entry, essentially clear to auscultation, bilateral bases diminished. ABDOMEN: Soft, nondistended ,nontender . No guarding. no masses palpable. LEGS: No edema. no swelling. Prior bilateral great toe amputations. NERVOUS SYSTEM: Mild confusion otherwise grossly intact Skin: Warm and dry . Anterior scrotal fungal rash noted. Stage I rectal pressure ulcer. - Labs CBC & Chem 7: 09/18/23 08:14 09/18/23 08:14 Labs: Abnormal Lab Results - Last 24 Hours (Table) 09/17/23 09/17/23 09/18/23 Range/Units 16:46 20:14 08:14 RBC 3.56 L (4.30-5.90) m/uL Hgb 10.2 L (13.0-17.5) gm/dL Hct 33.7 L (39.0-53.0) % MCHC 30.4 L (31.0-37.0) g/dL Chloride (98-107) mmol/L Carbon Dioxide (22-30) mmol/L Glucose (74-99) mg/dL POC Glucose (mg/dL) 190 H 184 H (70-110) mg/dL Calcium (8.4-10.2) mg/dL 09/18/23 09/18/23 Range/Units 08:14 11:33 RBC (4.30-5.90) m/uL Hgb (13.0-17.5) gm/dL Hct (39.0-53.0) % MCHC (31.0-37.0) g/dL Chloride 114 H (98-107) mmol/L Carbon Dioxide 21 L (22-30) mmol/L Glucose 104 H (74-99) mg/dL POC Glucose (mg/dL) 127 H (70-110) mg/dL Calcium 7.8 L (8.4-10.2) mg/dL Assessment and Plan Assessment: Acute DKA, anion gap closed , resolved Severe anion gap metabolic acidosis secondary to the above, status post bicarb drip. Hypotensive ,hypovolemic shock, status post pressor dependent, resolved Acute hypoxic respiratory failure, status post mechanical ventilator dependent. Acute possible left lower lobe pneumonia as per pulmonary, sputum culture, polymicrobial, reporting E. coli, Staphylococcus aureus-MSSA, strep agalactiae group B. Dysphagia, delayed swallowing, MBS completed-speech recommending dysphagia level 2 diet, one-to-one supervision, aspiration precautions Rectal pain, wall thickening of the rectum/sigmoid colon reported per CT Fat-containing right inguinal hernia reported per CT Hyperchloremic hypernatremia, resolved. Thrombocytopenia Paroxysmal atrial fibrillation Sepsis, secondary to all the above, resolved. Acute metabolic encephalopathy secondary to all the above, suspect anoxic. Brain CT did not report any acute abnormalities, EEG reported slowing suggestive of severe encephalopathy likely due to toxic metabolic derangement. Acute rhabdomyolysis Acute renal failure, improving Elevated troponin, multifactorial secondary to all the above, ACS ruled out,Type II [place] as per cardiology. Severe dehydration Diabetes mellitus type 2, hemoglobin A1c 11.9 CAD, history of [place], stent History of seizure disorder, on Keppra Stage I pressure ulcer, 1 cm near rectum Fungal rash, anterior scrotum Hypokalemia Plan: Continue on current medication resume ,monitoring and symptomatic treatment. Continue holding Eliquis, colonoscopy prep ordered for colonoscopy tomorrow. Additional potassium supplementation ordered. Strict aspiration precautions.antibiotics per ID.titrate O2. Maintain Levemir insulin and NovoLog sliding scale with close monitoring of blood sugars. PT/OT. Discharge planning in progress for subacute rehab. prognosis guarded, given multiple complex medical issues. The impression and plan of care has been dictated as directed. : I performed a history and examination of this patient, discussed the same with the dictator. I agree with the dictator's note ,documented as a scribe. Any additional findings or plans will be noted.
[2023-09-18 16:23] LABS: Glucose,Whole Blood 172 mg/dL (70-110)
--- NOTE | 2023-09-18 16:23 | XR ---
EXAMINATION TYPE: XR chest 1V portable DATE OF EXAM: 09/18/2023 COMPARISON: 09/13/2023 INDICATION: Pneumonia TECHNIQUE: Single frontal view of the chest is obtained. FINDINGS: The heart size is normal. The pulmonary vasculature is normal. Right basilar infiltrates are present. IMPRESSION: 1. Bibasilar infiltrates. Correlate for atelectasis or pneumonia. Follow-up is recommended.
--- NOTE | 2023-09-18 16:37 | P.PN ---
Subjective Progress Note Date: 09/17/23 Principal diagnosis: Reason for follow-up is fever Patient is a 67-year-old male with a past medical history significant for coronary disease diabetes mellitus MA seizure disorder history of diabetic foot infection status post bilateral big toe amputation presenting to the hospital with unresponsiveness patient was initially hypothermic subsequently started spiking fever initial workup with a chest x-ray and urine was negative. On today's evaluation that is09/17/2023,the patient remains to be afebrile, patient is on 2 L nasal cannula supplemental oxygen and denies any shortness of breath no chest pain or any worsening cough.Patient denies having any nausea or vomiting, no abdominal pain and no worsening diarrhea. Patient did have a creatinine 0.87 no CBC was done today stool for C. difficile is negative Objective - Vital Signs Vital signs: Vital Signs Temp 97.8 F 09/17/23 11:57 Pulse 75 09/17/23 12:04 Resp 18 09/17/23 11:57 BP 184/88 09/17/23 11:57 Pulse Ox 100 09/17/23 11:57 FiO2 35 09/12/23 09:07 Intake & Output 09/16/23 09/17/23 09/17/23 18:59 06:59 18:59 Intake Total 1076 250 Output Total 800 1350 Balance 276 -1350 250 Intake: Oral 1076 250 Output: Urine 800 1350 Other: Voiding Method External Catheter Indwelling Catheter Indwelling Catheter # Bowel Movements 1 1 1 ABP, PAP, CO, CI - Last Documented Arterial Blood Pressure 121/60 - Exam GENERAL DESCRIPTION: An elderly male lying in bed in no distress RESPIRATORY SYSTEM: Unlabored breathing , decreased breath sounds at bases HEART: S1 S2 regular rate and rhythm , ABDOMEN: Soft , no tenderness EXTREMITIES: No edema feet - Labs CBC & Chem 7: 09/18/23 08:14 09/18/23 08:14 Labs: Abnormal Lab Results - Last 24 Hours (Table) 09/16/23 09/16/23 09/17/23 Range/Units 16:35 20:12 06:20 Chloride (98-107) mmol/L Glucose (74-99) mg/dL POC Glucose (mg/dL) 287 H 243 H 163 H (70-110) mg/dL Calcium (8.4-10.2) mg/dL 09/17/23 09/17/23 Range/Units 06:27 11:53 Chloride 115 H (98-107) mmol/L Glucose 157 H (74-99) mg/dL POC Glucose (mg/dL) 123 H (70-110) mg/dL Calcium 7.7 L (8.4-10.2) mg/dL Microbiology - Last 24 Hours (Table) 09/11/23 10:16 Blood Culture - Final Blood Assessment and Plan (1) Fever Current Visit: Yes Status: Acute Code(s): R50.9 - FEVER, UNSPECIFIED SNOMED Code(s): 042077381 (2) Pneumonia Current Visit: Yes Status: Acute Code(s): J18.9 - PNEUMONIA, UNSPECIFIED ORGANISM SNOMED Code(s): 816422341 (3) Diarrhea Current Visit: Yes Status: Acute Code(s): R19.7 - DIARRHEA, UNSPECIFIED SNOMED Code(s): 26178640 Plan: 1patient presented to the hospital unresponsive 4 days ago with initial presentation to the outside facility patient was initially hypothermic now with fever patient initial workup including a chest x-ray that has been negative urine has been negative abdominal soft on clinical examination, white count remains to be normal blood culture negative question of viral syndrome versus central source of this fever 2-patient did have a negative influenza RSV and COVID testing, patient did have improvement in his mentation and fever pattern has improved patient has refused LP 3-patient stool for C. difficile is negative continue with the Questran for symptomatic relief 4continue with cefepime for pneumonia transition to oral antibiotics on discharge Dictation was produced using [employer] dictation software. please excuse any grammatical, word or spelling errors. Time with Patient: Less than 30
--- NOTE | 2023-09-18 16:38 | P.PN ---
Subjective Progress Note Date: 09/18/23 Principal diagnosis: Reason for follow-up is fever Patient is a 67-year-old male with a past medical history significant for coronary disease diabetes mellitus AL seizure disorder history of diabetic foot infection status post bilateral big toe amputation presenting to the hospital with unresponsiveness patient was initially hypothermic subsequently started spiking fever initial workup with a chest x-ray and urine was negative. On today's evaluation that is 09/18/2023, the patient continues to be afebrile, the patient is on 2 L current oxygen and breathing comfortably, the Pt denies having any chest pain or cough, the patient denies having any abdominal pain, c omplaining of feeling sick but no vomiting. Patient had a white count of 8.6 creatinine 0.69 blood culture has been negative, CT of the pelvis suggestive of proctitis Objective - Vital Signs Vital signs: Vital Signs Temp 98.5 F 09/18/23 08:00 Pulse 92 09/18/23 15:43 Resp 18 09/18/23 14:00 BP 172/82 09/18/23 12:00 Pulse Ox 100 09/18/23 12:00 FiO2 35 09/12/23 09:07 Intake & Output 09/17/23 09/18/23 09/18/23 18:59 06:59 18:59 Intake Total 800 236 Output Total 1850 500 Balance 800 -1850 -264 Weight 96.8 kg Intake: Oral 800 236 Output: Urine 1850 500 Other: Voiding Method Indwelling Catheter Indwelling Catheter Indwelling Catheter # Bowel Movements 1 ABP, PAP, CO, CI - Last Documented Arterial Blood Pressure 121/60 - Exam GENERAL DESCRIPTION: An elderly male lying in bed in no distress RESPIRATORY SYSTEM: Unlabored breathing , decreased breath sounds at bases HEART: S1 S2 regular rate and rhythm , ABDOMEN: Soft , no tenderness EXTREMITIES: No edema feet - Labs CBC & Chem 7: 09/18/23 08:14 09/18/23 08:14 Labs: Abnormal Lab Results - Last 24 Hours (Table) 09/17/23 09/17/23 09/18/23 Range/Units 16:46 20:14 08:14 RBC 3.56 L (4.30-5.90) m/uL Hgb 10.2 L (13.0-17.5) gm/dL Hct 33.7 L (39.0-53.0) % MCHC 30.4 L (31.0-37.0) g/dL Chloride (98-107) mmol/L Carbon Dioxide (22-30) mmol/L Glucose (74-99) mg/dL POC Glucose (mg/dL) 190 H 184 H (70-110) mg/dL Calcium (8.4-10.2) mg/dL 09/18/23 09/18/23 09/18/23 Range/Units 08:14 11:33 16:21 RBC (4.30-5.90) m/uL Hgb (13.0-17.5) gm/dL Hct (39.0-53.0) % MCHC (31.0-37.0) g/dL Chloride 114 H (98-107) mmol/L Carbon Dioxide 21 L (22-30) mmol/L Glucose 104 H (74-99) mg/dL POC Glucose (mg/dL) 127 H 172 H (70-110) mg/dL Calcium 7.8 L (8.4-10.2) mg/dL Assessment and Plan (1) Fever Current Visit: Yes Status: Acute Code(s): R50.9 - FEVER, UNSPECIFIED SNOMED Code(s): 701306324 (2) Pneumonia Current Visit: Yes Status: Acute Code(s): J18.9 - PNEUMONIA, UNSPECIFIED ORGANISM SNOMED Code(s): 529158072 (3) Diarrhea Current Visit: Yes Status: Acute Code(s): R19.7 - DIARRHEA, UNSPECIFIED SNOMED Code(s): 47925899 Plan: 1patient presented to the hospital unresponsive 4 days ago with initial presentation to the outside facility patient was initially hypothermic now with fever patient initial workup including a chest x-ray that has been negative urine has been negative abdominal soft on clinical examination, white count remains to be normal blood culture negative question of viral syndrome versus central source of this fever 2-patient did have a negative influenza RSV and COVID testing, patient did have improvement in his mentation and fever pattern has improved patient has refused LP 3-patient stool for C. difficile is negative, CT of the pelvis that shows evidence of proctitis surgery has been consulted planning for colonoscopy tomorrow 4patient to continue with the cefepime with evidence of proctitis on the CT will add Flagyl for anaerobic coverage Dictation was produced using dragon dictation software. please excuse any grammatical, word or spelling errors. Time with Patient: Less than 30
[2023-09-18] MEDS: LACTULOSE 20 GM/30 ML CUP PO ONE (17:07)
[2023-09-18] MEDS: FUROSEMIDE 10 MG/ML 4 ML VIAL IV STA (17:07)
[2023-09-18] MEDS: PEG 3350 (420 GM/BTL) + LYTES 4,000 ML BOTTLE PO ONE (17:07)
[2023-09-18] MEDS: MAGNESIUM HYDROXIDE 2,400 MG/30 ML CUP PO SCH (17:07)
[2023-09-18] MEDS: metroNIDAZOLE-NS PMX 500 MG in SALINE 1 100ML.BAG IVPB SCH (17:08)
[2023-09-18] MEDS: POTASSIUM CHLORIDE ER 20 MEQ TAB.ER PO STA (17:08)
--- NOTE | 2023-09-18 18:58 | P.PN ---
Subjective Progress Note Date: 09/18/23 09/18/2023: Patient was seen for a follow-up. Patient laying in the bed. Continues to have rectal pain 12/17. Patient complains of difficulty breathing. Informed the nurse to report to primary physician. 09/17/2023: Patient was seen for a follow-up. Patient states he continues to have pain in the rectal region /. No other concerns. 09/16/2023: Patient was initially seen by Dr. Edvin Espinoza. Please refer to his note for details. Patient is a 67-year-old male with acute DKA. EEG was negative for seizures. Patient has history of seizures and takes Keppra. Patient had fever but appears to be from aspiration pneumonia. Infectious disease had recommended lumbar puncture but patient had refused. Mentation is improving. Patient was seen for a follow-up. Patient is laying in the bed. States feeling "not good". Patient complaining of very severe pain involving his "butt and back". He points that to between his buttocks, perhaps in the rectal region. He claims the pain is "bad", rates 10/10. He states he cannot even sit as it hurts so bad. He could not even turn to show me where the exact pain is. He denies any headache. He is fully oriented as mentioned below. Patient states regarding his bowel movement, he cannot tell as much when it is coming. Some of the work-up during this hospital visit consisted of: Patient is afebrile. Patient only had temperature of 100.2 the day after admission 09/13/2023. wbc has been normal. He has thrombocytopenia, now resolved TSH is 1.350 clinically ammonia level is less than 9 CK level is 882-->214 Vitamin B12: [address] of the head is reported as no acute intracranial hemorrhage or midline shift. There is mild diffuse age-related cerebral atrophy and mild to moderate probable chronic small vessel ischemic change redemonstrated. No significant change from most recent prior CT. Personally reviewed the CT and I agree there is no acute or subacute ischemia. Echo is reported as technically difficult study. Limited study. Overall left ventricle systolic function moderately impaired. Routine EEG: Is abnormal. The background slowing is suggestive of severe encephalopathy likely due to toxic-metabolic derrangement. Otherwise, there is no focal slowing, epileptiform discharges or seizure on the EEG. Blood culture is E. Coli, staph aureus and Strep agalctiae CXR: Similar patch density medial left base. Increasing patchy atelectasis/infi ltrate at right base. Objective - Vital Signs Vital signs: Vital Signs Temp 98.5 F 09/18/23 08:00 Pulse 73 09/18/23 14:00 Resp 18 09/18/23 14:00 BP 172/82 09/18/23 12:00 Pulse Ox 100 09/18/23 12:00 FiO2 35 09/12/23 09:07 Intake & Output 09/17/23 09/18/23 09/18/23 18:59 06:59 18:59 Intake Total 800 236 Output Total 1850 500 Balance 800 -1850 -264 Weight 96.8 kg Intake: Oral 800 236 Output: Urine 1850 500 Other: Voiding Method Indwelling Catheter Indwelling Catheter Indwelling Catheter # Bowel Movements 1 ABP, PAP, CO, CI - Last Documented Arterial Blood Pressure 121/60 - Exam Patient is alert and awake fairly well-oriented. He knows it is September 2023 and that he has not a hospital in [place] in [place]. Speech and language functions are normal. His cranial nerves are normal. Visual thomas are full. Face is symmetric. On muscle strength testing (right/left) deltoid 4/4, biceps 4+/4+, triceps 4+/4+5-, case packer 4+/4+, hip flexion 2/2, ankle dorsiflexion 1-2/1-2. Reflexes are absent all over. He has amputated big toes bilaterally. - Labs CBC & Chem 7: 09/18/23 08:14 09/18/23 08:14 Labs: Abnormal Lab Results - Last 24 Hours (Table) 09/17/23 09/17/23 09/18/23 Range/Units 16:46 20:14 08:14 RBC 3.56 L (4.30-5.90) m/uL Hgb 10.2 L (13.0-17.5) gm/dL Hct 33.7 L (39.0-53.0) % MCHC 30.4 L (31.0-37.0) g/dL Chloride (98-107) mmol/L Carbon Dioxide (22-30) mmol/L Glucose (74-99) mg/dL POC Glucose (mg/dL) 190 H 184 H (70-110) mg/dL Calcium (8.4-10.2) mg/dL 09/18/23 09/18/23 Range/Units 08:14 11:33 RBC (4.30-5.90) m/uL Hgb (13.0-17.5) gm/dL Hct (39.0-53.0) % MCHC (31.0-37.0) g/dL Chloride 114 H (98-107) mmol/L Carbon Dioxide 21 L (22-30) mmol/L Glucose 104 H (74-99) mg/dL POC Glucose (mg/dL) 127 H (70-110) mg/dL Calcium 7.8 L (8.4-10.2) mg/dL Assessment and Plan Assessment: Altered Mental status, likely due to metabolic encephalopathy. Resolved. New onset severe pain in the rectal region, CT pelvis showing wall thickening of the rectum/sigmoid colon. Rule out mass lesion. 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 Plan: Patient's mentation has remarkably improved. He is fully oriented. Patient had two CT head which are negative for acute process. EEG is severe encephalopathy but no seizure or discharges appreciated Is on home dose of Keppra 500 mg twice a day. Patient is on aspirin 81 mg and Lipitor 40 mg nightly. Patient denies headache. No indication for lumbar puncture. Patient was complaining of severe pain in the rectal region. This prompted testing as below. CT of the lumbar spine showed no evidence for spinal fracture. Moderate degeneration changes of the spine without evidence for significant spinal canal stenosis. Moderate bilateral L5-S1 and L4-L5 neural foraminal stenosis. Bilat eral lung base consolidation possibly representing atelectasis with superimposed infection not excluded. Trace pleural effusion. CT of the pelvis revealed circumferential wall thickening of the rectum/sigmoid colon, correlate for proctitis. Prominent mesenteric lymph nodes around the rectum also present. Direct visualization if not recently performed recommended to rule out mass. Colonic diverticulosis. Fat-containing right inguinal hernia, no evidence of fracture. Mild to moderate bilateral hip osteoarthrosis and moderate degeneration changes of the spine. Surgery input appreciated. Patient undergoing colonoscopy in the morning. Thrombocytopenia has resolved. Patient's platelets are 193. Patient was on Eliquis 5 mg twice daily, but currently on hold because of upcoming colonoscopy in the morning. Hemoglobin A1c 11.9, consistent with poorly controlled diabetes. Recommend optimize control of diabetes to target A1c <7.0. B12 1686, TSH 1.35, CK 81 Will defer the rest of the medical management to primary and other specialists.
[2023-09-18 20:03] LABS: Glucose,Whole Blood 241 mg/dL (70-110)
[2023-09-18] MEDS: TAMSULOSIN 0.4 MG CAP.ER.24H PO SCH (21:12)
[2023-09-18] MEDS: POTASSIUM CHLORIDE ER 20 MEQ TAB.ER PO ONE (21:12)
[2023-09-18] MEDS: ACETAMINOPHEN IV (For NPO) 1,000 MG in EMPTY BAG 1 BAG IVPB STA (21:21)
[2023-09-18] MEDS: LABETALOL 5 MG/ML VIAL MDV IVP STA (21:36)
[2023-09-18] MEDS: SODIUM CHLORIDE 0.9% 1,000 ML BAG IV STA (23:00)
[2023-09-19 06:16] LABS: Glucose,Whole Blood 158 mg/dL (70-110)
--- NOTE | 2023-09-19 06:57 | P.PN ---
Progress Note - Text Progress Note Date: 09/18/23 Patient seen and evaluated. Discussion with nursing team reveals patient has has had trouble swallowing liquids. Patient also has a history of prolonged intubation and has difficulty with swallowing nectar thick fluids. General surgery ix following for possible rectal mass. With new finding of inability to swallow and inadequate protein malnutrition, placement of feeding tube have been described to patient. Patient verbalized understanding function of feeding tube with current risk of aspiration with swallowing by mouth. Will discontinue colonoscopy order. Upper endoscopy with feeding tube placement described. Patient's nurse notified of change.
[2023-09-19 07:57] LABS: African American GFR (CKD) >90 (>60 ml/min/1.73 sqM); Anion Gap 5 mmol/L; Blood Urea Nitrogen 17 mg/dL (9-20); Calcium 8.3 mg/dL (8.4-10.2); Carbon Dioxide 26 mmol/L (22-30); Chloride 112 mmol/L (98-107); Glucose 151 mg/dL (74-99); Non-African American GFR(CKD) >90 (>60 ml/min/1.73 sqM); Potassium 4.5 mmol/L (3.5-5.1); Sodium 143 mmol/L (137-145)
[2023-09-19 08:13] LABS: Basophils % (A) 0 %; Eosinophils % (A) 0 %; HCT 37.1 % (39.0-53.0); HGB 11.3 gm/dL (13.0-17.5); Hypochromasia Moderate; Lymphocytes # (A) 0.5 k/uL (1.0-4.8); Lymphocytes % (A) 5 %; MCH 29.4 pg (25.0-35.0); MCHC 30.5 g/dL (31.0-37.0); MCV 96.2 fL (80.0-100.0); Mean Platelet Volume 9.3; Monocytes # (A) 0.6 k/uL (0-1.0); Monocytes % (A) 6 %; Neutrophils # (A) 8.7 k/uL (1.3-7.7); Neutrophils % (A) 87 %; Platelet Count 233 k/uL (150-450); RBC 3.85 m/uL (4.30-5.90); RDW 13.3 % (11.5-15.5); WBC 9.9 k/uL (3.8-10.6)
[2023-09-19 11:25] LABS: Glucose,Whole Blood 179 mg/dL (70-110)
[2023-09-19 11:51] LABS: Glucose,Whole Blood 162 mg/dL (70-110)
[2023-09-19 11:56] LABS: ABG Base Excess -1.2 mmol/L; ABG HCO3 27 mmol/L (21-25); ABG Oxygen Saturation 94.3 % (94-97); ABG PCO2 64 mmHg (35-45); ABG PH 7.24 (7.35-7.45); ABG PO2 78 mmHg (83-108); ABG TCO2 29 mmol/L (19-24); Allen Test Performed? Yes
[2023-09-19 12:21] LABS: Glucose,Whole Blood 144 mg/dL (70-110)
--- NOTE | 2023-09-19 12:42 | XR ---
EXAMINATION TYPE: XR chest 1V portable DATE OF EXAM: 09/19/2023 COMPARISON: 09/18/2023 INDICATION: Respiratory distress TECHNIQUE: Single frontal view of the chest is obtained. FINDINGS: The heart size is normal. The pulmonary vasculature is normal. May be a minimal right pleural effusion. Some right lower lobe atelectasis may be present. Follow-up is recommended. Findings appear stable IMPRESSION: 1. Right lower lobe infiltrate minimal right pleural effusion. Continued follow-up recommended
[2023-09-19 13:04] LABS: ABG Base Excess -0.7 mmol/L; ABG HCO3 26 mmol/L (21-25); ABG Oxygen Saturation 93.1 % (94-97); ABG PCO2 49 mmHg (35-45); ABG PH 7.32 (7.35-7.45); ABG PO2 66 mmHg (83-108); ABG TCO2 27 mmol/L (19-24); Allen Test Performed? Yes
--- NOTE | 2023-09-19 13:30 | P.PN ---
Subjective Progress Note Date: 09/19/23 CHIEF COMPLAINT: rectal pain HISTORY OF PRESENT ILLNESS: 67-year-old male admitted to the hospital for DKA. Surgical service following in regards to rectal wall thickening noted in the rectum/sigmoid colon on CT scan. Patient also had been having rectal pain. He was initially scheduled for colonoscopy today. However, patient apparently has been having difficulty swallowing. Therefore, the bowel prep was discontinued. Colonoscopy canceled. Dr. De La Cruz did discuss with patient about PEG tube p lacement. Patient had "A team" called this morning due to episode of unresponsiveness. He is currently in the ICU requiring to be intubated and placed on mechanical ventilation. PHYSICAL EXAM: VITAL SIGNS: Reviewed GENERAL: no acute distress. Intubated HEENT: No sclera icterus. Moist buccal mucosa. NECK: Supple without lymphadenopathy. CHEST: Non-labored respirations and equal bilateral excursions. CARDIOVASCULAR: Palpable 2+ radial pulses. ABDOMEN: Soft. Nondistended. MUSCULOSKELETAL: No clubbing or cyanosis. NEUROLOGIC: Intubated and sedated SKIN: Well perfused. Good skin turgor. ASSESSMENT: 1. Rectal pain. Concerns for possible rectal mass. CT pelvis reporting wall thickening of the rectum/sigmoid colon 2. Fat-containing right inguinal hernia noted on CT 3. Acute diabetic ketoacidosis on admission 4. Acute respiratory failure with pneumonia 5. Acute rhabdomyolysis 6. Metabolic encephalopathy 7. Acute kidney injury 8. Acute rhabdomyolysis 9. Coronary disease with cardiac stent history 10. History of EF of 40 to 45% 11. History of Afib 12. Dysphagia PLAN: -Colonoscopy canceled for today -PEG tube placement currently on hold -Continue ICU management -Continue supportive care Physician Group Home Supervisor note has been reviewed by physician. Signing provider agrees with the documented findings, assessment, and plan of care. Objective - Vital Signs Vital signs: Vital Signs Temp 98.0 F 09/19/23 09:08 Pulse 101 H 09/19/23 09:09 Resp 20 09/19/23 09:08 BP 145/79 09/19/23 09:08 Pulse Ox 93 L 09/19/23 09:08 FiO2 50 09/19/23 11:27 Intake & Output 09/18/23 09/19/23 09/19/23 18:59 06:59 18:59 Intake Total 354 Output Total 950 4400 600 Balance -596 -4400 -600 Weight 96.8 kg Intake: Oral 354 Output: Urine 950 4400 600 Other: Voiding Method Indwelling Catheter Indwelling Catheter Indwelling Catheter ABP, PAP, CO, CI - Last Documented Arterial Blood Pressure 121/60 - Labs CBC & Chem 7: 09/19/23 07:05 09/19/23 07:05 Labs: Abnormal Lab Results - Last 24 Hours (Table) 09/18/23 09/18/23 09/19/23 Range/Units 16:21 20:02 06:15 RBC (4.30-5.90) m/uL Hgb (13.0-17.5) gm/dL Hct (39.0-53.0) % MCHC (31.0-37.0) g/dL Neutrophils # (1.3-7.7) k/uL Lymphocytes # (1.0-4.8) k/uL Chloride (98-107) mmol/L Glucose (74-99) mg/dL POC Glucose (mg/dL) 172 H 241 H 158 H (70-110) mg/dL Calcium (8.4-10.2) mg/dL 09/19/23 09/19/23 09/19/23 Range/Units 07:05 07:05 11:22 RBC 3.85 L (4.30-5.90) m/uL Hgb 11.3 L (13.0-17.5) gm/dL Hct 37.1 L (39.0-53.0) % MCHC 30.5 L (31.0-37.0) g/dL Neutrophils # 8.7 H (1.3-7.7) k/uL Lymphocytes # 0.5 L (1.0-4.8) k/uL Chloride 112 H (98-107) mmol/L Glucose 151 H (74-99) mg/dL POC Glucose (mg/dL) 179 H (70-110) mg/dL Calcium 8.3 L (8.4-10.2) mg/dL
--- NOTE | 2023-09-19 13:34 | XR ---
EXAMINATION TYPE: XR chest 1V portable DATE OF EXAM: 09/19/2023 COMPARISON: 09/19/2023 INDICATION: Tube placement TECHNIQUE: Single frontal view of the chest is obtained. FINDINGS: The heart size is normal. The pulmonary vasculature is normal. The lungs are clear. Endotracheal tube tip is 3.3 cm above the mahesh. Nasogastric tube tip is within the proximal left ab domen. IMPRESSION: 1. Bibasilar infiltrates. Small right pleural effusion may be present. 2. Lines and catheters discussed above. The nasogastric tube be advanced for better positioning.
[2023-09-19] MEDS: SODIUM CHLORIDE 0.9% 1,000 ML BAG IV STA (13:35)
--- NOTE | 2023-09-19 14:23 | P.PN ---
Subjective Progress Note Date: 09/19/23 Patient is a 67-year-old male with past medical history significant for diabetes mellitus, prior toe amputations, hyperlipidemia, coronary artery disease with previous stents, and seizure disorder. He is currently intubated to the mechanical ventilator, unresponsive without any sedation, unable to provide any information. Patient was transferred from [facility] late last night. Apparently, found unresponsive by his girlfriend, and last known well was 24 hours prior. Patient was intubated by EMS on arrival and triaged to [facility]. Initial presentation was consistent with DKA. Subsequently, the patient was transferred to [facility]. Patient is currently in trauma bay 1, he is intubated mechanical ventilator. Chest x-ray on arrival to our facility shows the endotracheal tube in satisfactory position approximately 4 cm above the mahesh. There is an orogastric tube that should be advanced. Right IJ central line catheter appears to terminate at the Cavo atrial junction. No focal infiltrates or evidence of pneumonia. Current ventilator settings are assist-control, respiratory rate 14, tidal volume 500, FiO2 35%, PEEP of 5. He is breathing slightly above set rate. Not on any sedation. Remains unresponsive even to deep painful stimuli. CT of the brain did not show any acute intracranial hemorrhage or mass effect. ABG is consistent with profound metabolic acidosis, with a PaO2 of 204, pCO2 of 25, pH of 7.04. Patient has been given a total of 2 A of bicarb. He is hypotensive and in a shock state, he has been fluid resuscitated with at least 2.5 L crystalloid fluid. No insulin infusion is currently ordered. He remains profoundly hypotensive, and has been started on norepinephrine which is currently infusing at 0.06 mcg/kg/min. CBC: WBC count 8.8, hemoglobin 14.5, hematocrit 50.3, platelets 136. CMP: Sodium 143, potassium 5.2, chloride 115, serum bicarb less than 5, anion gap unmeasurable, BUN 134, creatinine 4.29, glucose 910. Lactic 1.1. LFTs not elevated. Total bilirubin 0.7. Ammonia less than 9. CPK was 882. Troponin 0.084. NT BNP 2720. EKG shows normal sinus rhythm and is nondiagnostic for acute ischemia. Urinalysis positive for glucose and ketones. Urine toxicology screen at outside facility was essentially negative. Serum alcohol less than 10. Patient will be admitted to the intensive care unit once bed available. Today's evaluation of 09/09/2023, the patient is being seen for a follow-up. The patient remains off sedatives. He is grimacing to painful stimulation. He did have a CAT scan of the brain yesterday that showed no acute abnormalities. Suspect a component of hypoxic encephalopathy as the patient apparently was hypoxic when the patient was picked up by the EMS. At this point in time, the patient is grimacing only to deep painful stimulation. Not following any commands yet. The patient has recovered from his anion gap metabolic acidosis related to DKA. The patient is currently on half-normal saline at rate of 100 cc an hour. Most recent blood work shows a gap of 6 with a serum bicarb of 17. Sodium levels at 151. Potassium level at 3.3 which is being replaced. Blood sugars 879. The patient remains on insulin drip and the patient will be transition to long-acting insulin. Remains on the mechanical ventilator assist- control mode at rate of 20, tidal volume of 500, FiO2 of 35% with a PEEP of 5. Blood gas showed a pH of 7.4 with a pCO2 of 29 and pO2 of 103. The patient was tachypneic volume second mechanical ventilation the patient was switched to pressure control. CVP was 2 and after receiving a total of 3 L of fluid and the CVP came up to 8 and the patient has been off pressors since 11:30 PM yesterday. Cardiac rhythm is sinus. The patient is completing albuterol and loading and the patient is currently on 0.5 mg/min. Echocardiogram was done and patient has an ejection fraction of 40 to 45%. The white cell count today is at 5 with a hemoglobin of 12 and a platelet count of 62. Chest x-ray findings are stable. Some atelectatic changes in lung base bilaterally. No antibiotic coverage at this point in time. Sputum is showing gram-negative bacillus and presumptive Staph aureus. 09/10/2023, I am seeing the patient for a follow-up. The patient remains encephalopathic. He grimaces to painful stimulation in all 4 extremities and is withdrawing to pain. Nevertheless, does not follow any commands. His mobility is less in his lower extremities compared to the upper extremities. No seizure activity has been noted. CAT scan of the brain was negative. EEG showed moderate to severe encephalopathy. Suspect hypoxic encephalopathy. Meanwhile, the patient remains intubated on mechanical ventilator. On today's evaluation, he is on no sedation. He is on pressure control mode of mechanical ventilation at rate of 20, pressure control of 15, inspiratory time 0.9 with an FiO2 of 35% and a PEEP of 5. Blood gases from today showed a pH of 7.45 with a pCO2 of 25 and a pO2 of 97. Chest x-ray findings are stable and there is no significant interval change and there is no definite acute process. Based on the positive sputum culture, the patient was started on IV cefepime. Sputum sample was positive for a combination of bacteria including E. coli, Staph aureus/MSSA and Streptococcus. He is afebrile. Hemodynamically stable and he is on no pressors. In fact, he has developed some hypochloremic hyponatremia. He remains on half-normal saline at rate of 100 cc an hour. BUN 64 with a creatinine of 1.46 and a sodium level at 152 and a chloride level is 128. Potassium is at 3.5. WBC count is at 4.7 with a hemoglobin of 1.4 and a platelet count of 49. The patient's blood sugar is at 281. The patient remains on Levemir insulin which is at 15 units and the patient is also on sliding scale coverage. The patient is sitting enteral feeding for nutritional support and the patient is on Glucerna at a rate of 31 cc an hour. On 09/11/2023, the patient is being seen for a follow-up. Opening of his eyes. Not following commands consistently. Remains on mechanical ventilator. Currently is on a pressure control mode with rate of 20, pressure of 50 cm of water, respiratory exam of 0.9, FiO2 35% with a PEEP of 5. Blood gas showed a pH of 7.44 with episodes of 32 and pO2 of 109. Chest x-ray findings are stable. Hemodynamically stable. No pressors. He is on no sedative medications for now. Afebrile. Remains on IV cefepime. White cell count is 7.4, hemoglobin is 11.5 and a platelet count of 59. Sodium is 155, potassium is at 4, chloride is 131, BUN is 51 with a creatinine 1.2. LFTs are stable, CPK is down to 214. The patient is running a low-grade fever. Remains on IV cefepime. Sputum culture was polymicrobial including E. coli, Streptococcus and MSSA. Further blood cultures have been sent. No pressors for now. He is currently on Levemir insulin and sliding scale insulin coverage. The patient is also on Glucerna for enteral feeding and nutritional support she is currently at goal at 54 cc an mohsen r. 09/12/2023, I am seeing the patient for a follow-up. The patient is off sedation. The patient is awake and alert and the patient has been on a pressure support mode of mechanical ventilation throughout the night. The patient is currently on a PSV of 7 and a PEEP of 5. The patient is following simple commands. Blood gas from today shows a pH of 7.41 with a pCO2 of 37 and pO2 of 94. Chest x-ray showing a right lower lobe consolidation which could be an area of pneumonia. The patient is currently afebrile. The patient remains on IV cefepime. The tube feeds are currently on hold in anticipation for possible extubation today. Meanwhile, the patient's blood work shows a white cell count of 6.5, hemoglobin 10.7 and a platelet count of 59. Sodium is currently down to 151. BUN is 46 w ith a creatinine of 1.1. LFTs are normal. Renal function is normal. CPK is down to 81. No other significant events overnight. Hemodynamically stable. Cardiac rhythm is sinus. 09/13/2023, the patient is being seen for the follow-up. The patient was weaned off the mechanical ventilator and the patient was extubated. On today's evaluation, he is alert and awake and is communicating. Nevertheless, he does have some confusion. He is alert and oriented x 1. No signs of respiratory distress. Continues to have a cough and nasal congestion and a chest x-ray from today is essentially unchanged and the patient has stable patchy opacities in the lung base bilaterally. Remains on IV cefepime. Hemodynamically stable. Sodium level is improving and currently is down to 149. Blood sugars under adequate control and the patient is using Levemir insulin 30 units in addition to NovoLog 4 times a day and a sliding scale coverage. Renal function has normalized. No pressors for now. No fever. Remains on D5 water at the rate of 100 cc an hour. 09/14/2023, the patient is being seen for a follow-up. The patient had transferred out of the intensive care unit yesterday. He is alert and comm unicating. There is some limited baseline confusion. No agitation. No significant respiratory distress. Awaiting labs from today. The patient remains on D5 water. The patient remains on Levemir insulin. Recovered from his DKA. He is able to swallow and he has been provided a diet. No other significant events overnight. The patient remains on IV cefepime regarding bilateral pneumonia. The patient remains on DuoNeb nebulized treatments [id number]. Remains on anticoagulation with Eliquis. Remains on Levemir insulin 15 units at bedtime and NovoLog sliding scale coverage. Remains on IV Protonix. Patient was placed today on 09/15/2023, patient is being followed for his initial presentation with DKA and questionable left lower lobe pneumonia. Patient is doing well today, on 2 L nasal cannula, O2 saturation 93%. Does not seem to be in any form of distress. His sugar today is 294, his anion gap was nonexistent on the labs noted yesterday, and his BUN is 24 creatinine 0.82. Patient remains on amiodarone, Eliquis, he is also on cefepime and fark [employer]. In addition the patient is on DuoNeb updraft 4 times daily and as needed. And on Levemir insulin as well as insulin scale. Patient was evaluated today on 09/16/2023, patient is doing well, relatively asymptomatic, on 2 L nasal cannula O2 sat is 97%. He is hemodynamically stable, blood sugars have been in the range of 144 up to 200 his WBC count is 8.4 hemoglobin is 10 electrolytes are normal except for low potassium of 2.9 his last chest x-ray from 09/12 showed possible left lower lobe pneumonia Patient was evaluated today on 09/17/2023, pulmonary rosario the patient is doing well, does not seem to be in distress, however he is complaining of back pain and rectal pain, his CT of the pelvis showed wall thickening of the rectum/sigmoid colon. Otherwise the patient is doing well, and his abnormal CT of the pelvis is being addressed by surgery on the case. Patient is being considered for colonoscopy and Eliquis will be placed on hold Patient was evaluated today on 09/18/2023, patient is about the same, continues to have some discomfort in his back and in his rectal area, supposed to have colonoscopy tomorrow. Scarlet remains on hold. Patient has no active pulmonary issues. WBC count is 8.6 hemoglobin 10.2 electrolytes are normal renal profile is normal The patient was seen today September 19, 2023 in follow-up on the selective care unit. Today he is found to be weak and obtunded. He is requiring more oxygen currently at 6 L high flow nasal cannula. A rapid response team was called on him. Chest x-ray and ABGs reviewed. He will be transferred to the intensive care unit. Serial blood gases on 100% FiO2 revealed a P O2 of 66, pCO2 of 49 and a pH of 7.32. White count 9.9. Hemoglobin 11.3. Platelets 233. Sodium 143. Potassium 4.5. Bicarb 26. BUN 17. Creatinine 0.87. Glucose 151. The patient has been having concerns of rectal pain and possible rectal mass and the plan was for colonoscopy. However the patient was having ongoing issues with difficulty in swallowing and was being considered for PEG tube placement. This was prior to his change in clinical status. X-ray did reveal a right lower lobe infiltrate with minimal right pleural effusion. Objective - Vital Signs Vital signs: Vital Signs Temp 98.0 F 09/19/23 09:08 Pulse 93 09/19/23 13:00 Resp 20 09/19/23 13:00 BP 81/50 09/19/23 13:00 Pulse Ox 92 L 09/19/23 13:00 FiO2 100 09/19/23 13:00 Intake & Output 09/18/23 09/19/23 09/19/23 18:59 06:59 18:59 Intake Total 354 56.824 Output Total 950 4400 750 Balance -596 -4400 -693.176 Weight 96.8 kg Intake: IV 50 0.9 sodium chloride 50 Intake, IV Titration 6.824 Amount propofoL 1,000 mg In 6.824 Empty Bag 1 bag @ 15 MCG/ KG/MIN 8.712 mls/hr IV . [id number] [facility] Rx#:[id number] Oral 354 Output: Urine 950 4400 750 Other: Voiding Method Indwelling Catheter Indwelling Catheter Indwelling Catheter ABP, PAP, CO, CI - Last Documented Arterial Blood Pressure 121/60 - Exam GENERAL EXAM: Currently obtunded 67-year-old male requiring BiPAP support and possible intubation HEAD: Normocephalic and atraumatic EYES: Within normal NOSE: Clear with pink turbinates. THROAT: No erythema or exudates. Dry mucous membranes. NECK: No masses, no JVD. CHEST: No chest wall deformity. LUNGS: Diminished breath sounds at the bases few scattered rhonchi over the right lung base CVS: S1 and S2 normal with no soft systolic murmur, regular rhythm. No extra heart sounds ABDOMEN: Abdomen flat, active bowel sounds, no hepatosplenomegaly, no guarding or rigidity. SKIN: No rashes CENTRAL NERVOUS SYSTEM: Obtunded. EXTREMITIES: no clubbing, no cyanosis, trace of bipedal edema. - Labs CBC & Chem 7: 09/19/23 07:05 09/19/23 07:05 Labs: Abnormal Lab Results - Last 24 Hours (Table) 09/18/23 09/18/23 09/19/23 Range/Units 16:21 20:02 06:15 RBC (4.30-5.90) m/uL Hgb (13.0-17.5) gm/dL Hct (39.0-53.0) % MCHC (31.0-37.0) g/dL Neutrophils # (1.3-7.7) k/uL Lymphocytes # (1.0-4.8) k/uL ABG pH (7.35-7.45) ABG pCO2 (35-45) mmHg ABG pO2 (83-108) mmHg ABG HCO3 (21-25) mmol/L ABG Total CO2 (19-24) mmol/L ABG O2 Saturation (94-97) % Chloride (98-107) mmol/L Glucose (74-99) mg/dL POC Glucose (mg/dL) 172 H 241 H 158 H (70-110) mg/dL Calcium (8.4-10.2) mg/dL 09/19/23 09/19/23 09/19/23 Range/Units 07:05 07:05 11:22 RBC 3.85 L (4.30-5.90) m/uL Hgb 11.3 L (13.0-17.5) gm/dL Hct 37.1 L (39.0-53.0) % MCHC 30.5 L (31.0-37.0) g/dL Neutrophils # 8.7 H (1.3-7.7) k/uL Lymphocytes # 0.5 L (1.0-4.8) k/uL ABG pH (7.35-7.45) ABG pCO2 (35-45) mmHg ABG pO2 (83-108) mmHg ABG HCO3 (21-25) mmol/L ABG Total CO2 (19-24) mmol/L ABG O2 Saturation (94-97) % Chloride 112 H (98-107) mmol/L Glucose 151 H (74-99) mg/dL POC Glucose (mg/dL) 179 H (70-110) mg/dL Calcium 8.3 L (8.4-10.2) mg/dL 09/19/23 09/19/23 09/19/23 Range/Units 11:50 11:54 12:19 RBC (4.30-5.90) m/uL Hgb (13.0-17.5) gm/dL Hct (39.0-53.0) % MCHC (31.0-37.0) g/dL Neutrophils # (1.3-7.7) k/uL Lymphocytes # (1.0-4.8) k/uL ABG pH 7.24 L (7.35-7.45) ABG pCO2 64 H (35-45) mmHg ABG pO2 78 L (83-108) mmHg ABG HCO3 27 H (21-25) mmol/L ABG Total CO2 29 H (19-24) mmol/L ABG O2 Saturation (94-97) % Chloride (98-107) mmol/L Glucose (74-99) mg/dL POC Glucose (mg/dL) 162 H 144 H (70-110) mg/dL Calcium (8.4-10.2) mg/dL 09/19/23 Range/Units 13:02 RBC (4.30-5.90) m/uL Hgb (13.0-17.5) gm/dL Hct (39.0-53.0) % MCHC (31.0-37.0) g/dL Neutrophils # (1.3-7.7) k/uL Lymphocytes # (1.0-4.8) k/uL ABG pH 7.32 L (7.35-7.45) ABG pCO2 49 H (35-45) mmHg ABG pO2 66 L (83-108) mmHg ABG HCO3 26 H (21-25) mmol/L ABG Total CO2 27 H (19-24) mmol/L ABG O2 Saturation 93.1 L (94-97) % Chloride (98-107) mmol/L Glucose (74-99) mg/dL POC Glucose (mg/dL) (70-110) mg/dL Calcium (8.4-10.2) mg/dL Assessment and Plan Assessment: Acute respiratory failure with lower lobe patchy infiltrate/pneumonia. Po lymicrobial growth on the sputum culture and the patient remains on IV cefepime, patient required intubation mechanical ventilation initially, resolved acute metabolic encephalopathy, resolved. On 09/19/2023 the patient was found to be obtunded and a rapid response team was called. Chest x-ray, ABGs and labs reviewed. To be intubated again to protect his airway Acute diabetic ketoacidosis, resolved Hypovolemic shock on presentation, resolved Acute rhabdomyolysis Fever, secondary to above, resolved patient remains on cefepime Encephalopathy, rule out anoxic encephalopathy. Mental status is improving Acute rhabdomyolysis, CPK level were elevated. Improving Acute kidney injury, secondary to combination of above, renal function is improving Elevated troponins, likely supply/demand mismatch History of type 2 diabetes mellitus History of bilateral great toe amputations History of hyperlipidemia History of coronary artery disease with previous PCI/stent History of seizure disorder, no seizure activity noted LV dysfunction with ejection fraction of 40 to 45% Plan: The patient was seen and evaluated He was found to be quite obtunded Rapid response team was called To be transferred to the intensive care unit To be intubated to protect his airway Chest x-ray, ABGs and labs reviewed Patient will require a CT scan of the brain We will continue to follow and make further recommendations based on his clinical status I have personally seen and examined the patient, performed the documentation and the assessment and plan as written. Number of minutes spent on the visit: 15.
[2023-09-19] MEDS: CISATRACURIUM 2 MG/ML 5 ML VIAL IV ONE (15:00)
[2023-09-19] MEDS: SODIUM CHLORIDE 0.9% 1,000 ML IV ONE (15:52)
--- NOTE | 2023-09-19 16:02 | XR ---
EXAMINATION TYPE: XR chest 1V confirm line [facility] DATE OF EXAM: 09/19/2023 COMPARISON: 09/09/2023 HISTORY: Central line placement TECHNIQUE: Single frontal view of the chest is obtained. FINDINGS: ET tube is 4.4 cm above the mahesh. There is a central venous catheter the tip of which is in the SVC /RA junction. There is a NG tube within the stomach. There are few scattered ill-defined airspace and interstitial infiltrates bilaterally. Heart size is normal. Osseous structures are intact. IMPRESSION: 1.Central venous catheter tip in the SVC/RA junction. No pneumothorax. 2. ET tube 4.4 cm above the mahesh. 3. Mild to moderate acute cardiopulmonary disease as described above.
--- NOTE | 2023-09-19 16:13 | P.PN ---
Subjective Progress Note Date: 09/19/23 09/19/2023: Patient was seen for a follow-up. Apparently at 11:48 AM an A-team was called, after patient was found to be unresponsive. Patient's oxygen demand was increasing. Patient's pCO2 was 64. Patient was intubated and then transferred to ICU. At present patient is on propofol 20 mcg/kg/min. Patient could not undergo colonoscopy that was scheduled for today. 09/18/2023: Patient was seen for a follow-up. Patient laying in the bed. Continues to have rectal pain 10/10. Patient complains of difficulty breathing. Informed the nurse to report to primary physician. 09/17/2023: Patient was seen for a follow-up. Patient states he continues to have pain in the rectal region 10/10. No other concerns. 09/16/2023: Patient was initially seen by Dr. Edvin Espinoza. Please refer to his note for details. Patient is a 67-year-old male with acute DKA. EEG was negative for seizures. Patient has history of seizures and takes Keppra. Patient had fever but appears to be from aspiration pneumonia. Infectious disease had recommended lumbar puncture but patient had refused. Mentation is improving. Patient was seen for a follow-up. Patient is laying in the bed. States feeling "not good". Patient complaining of very severe pain involving his "butt and back". He points that to between his buttocks, perhaps in the rectal region. He claims the pain is "bad", rates 10/10. He states he cannot even sit as it hurts so bad. He could not even turn to show me where the exact pain is. He denies any headache. He is fully oriented as mentioned below. Patient states regarding his bowel movement, he cannot tell as much when it is coming. Some of the work-up during this hospital visit consisted of: Patient is afebrile. Patient only had temperature of 100.2 the day after admission 09/13/2023. wbc has been normal. He has thrombocytopenia, now resolved TSH is 1.350 clinically ammonia level is less than 9 CK level is 882-->214 Vitamin B12: [address] of the head is reported as no acute intracranial hemorrhage or midline shift. There is mild diffuse age-related cerebral atrophy and mild to moderate probable chronic small vessel ischemic change redemonstrated. No significant change from most recent prior CT. Personally reviewed the CT and I agree there is no acute or subacute ischemia. Echo is reported as technically difficult study. Limited study. Overall left ventricle systolic function moderately impaired. Routine EEG: Is abnormal. The background slowing is suggestive of severe encephalopathy likely due to toxic-metabolic derrangement. Otherwise, there is no focal slowing, epileptiform discharges or seizure on the EEG. Blood culture is E. Coli, staph aureus and Strep agalctiae CXR: Similar patch density medial left base. Increasing patchy atelectasis/infiltrate at right base. Objective - Vital Signs Vital signs: Vital Signs Temp 98.0 F 09/19/23 09:08 Pulse 91 09/19/23 14:00 Resp 24 09/19/23 14:00 BP 104/61 09/19/23 14:00 Pulse Ox 99 09/19/23 14:00 FiO2 100 09/19/23 14:00 Intake & Output 09/18/23 09/19/23 09/19/23 18:59 06:59 18:59 Intake Total 354 1056.824 Output Total 950 4400 810 Balance -596 -4400 246.824 Weight 96.8 kg Intake: IV 1050 0.9 sodium chloride 1050 Intake, IV Titration 6.824 Amount propofoL 1,000 mg In 6.824 Empty Bag 1 bag @ 15 MCG/ KG/MIN 8.712 mls/hr IV . [id number] [facility] Rx#:[id number] Oral 354 Output: Urine 950 4400 810 Other: Voiding Method Indwelling Catheter Indwelling Catheter Indwelling Catheter ABP, PAP, CO, CI - Last Documented Arterial Blood Pressure 121/60 - Exam 09/19/2023: Patient is intubated, on propofol 20 mcg/kg/min. Patient is very obtunded. Pupils are equal, round and reacting. No obvious seizure-like activity noted. 09/18/2023: Patient is alert and awake fairly well-oriented. He knows it is September 2023 and that he has not a hospital in [place] in [place]. Speech and language functions are normal. His cranial nerves are normal. Visual thomas are full. Face is symmetric. On muscle strength testing (right/left) deltoid 4/4, biceps 4+/4+, triceps 4+/4 +5-, senior mechanical technician 4+/4+, hip flexion 2/2, ankle dorsiflexion 1-2/1-2. Reflexes are absent all over. He has amputated big toes bilaterally. - Labs CBC & Chem 7: 09/19/23 07:05 09/19/23 07:05 Labs: Abnormal Lab Results - Last 24 Hours (Table) 09/18/23 09/18/23 09/19/23 Range/Units 16:21 20:02 06:15 RBC (4.30-5.90) m/uL Hgb (13.0-17.5) gm/dL Hct (39.0-53.0) % MCHC (31.0-37.0) g/dL Neutrophils # (1.3-7.7) k/uL Lymphocytes # (1.0-4.8) k/uL ABG pH (7.35-7.45) ABG pCO2 (35-45) mmHg ABG pO2 (83-108) mmHg ABG HCO3 (21-25) mmol/L ABG Total CO2 (19-24) mmol/L ABG O2 Saturation (94-97) % Chloride (98-107) mmol/L Glucose (74-99) mg/dL POC Glucose (mg/dL) 172 H 241 H 158 H (70-110) mg/dL Calcium (8.4-10.2) mg/dL 09/19/23 09/19/23 09/19/23 Range/Units 07:05 07:05 11:22 RBC 3.85 L (4.30-5.90) m/uL Hgb 11.3 L (13.0-17.5) gm/dL Hct 37.1 L (39.0-53.0) % MCHC 30.5 L (31.0-37.0) g/dL Neutrophils # 8.7 H (1.3-7.7) k/uL Lymphocytes # 0.5 L (1.0-4.8) k/uL ABG pH (7.35-7.45) ABG pCO2 (35-45) mmHg ABG pO2 (83-108) mmHg ABG HCO3 (21-25) mmol/L ABG Total CO2 (19-24) mmol/L ABG O2 Saturation (94-97) % Chloride 112 H (98-107) mmol/L Glucose 151 H (74-99) mg/dL POC Glucose (mg/dL) 179 H (70-110) mg/dL Calcium 8.3 L (8.4-10.2) mg/dL 09/19/23 09/19/23 09/19/23 Range/Units 11:50 11:54 12:19 RBC (4.30-5.90) m/uL Hgb (13.0-17.5) gm/dL Hct (39.0-53.0) % MCHC (31.0-37.0) g/dL Neutrophils # (1.3-7.7) k/uL Lymphocytes # (1.0-4.8) k/uL ABG pH 7.24 L (7.35-7.45) ABG pCO2 64 H (35-45) mmHg ABG pO2 78 L (83-108) mmHg ABG HCO3 27 H (21-25) mmol/L ABG Total CO2 29 H (19-24) mmol/L ABG O2 Saturation (94-97) % Chloride (98-107) mmol/L Glucose (74-99) mg/dL POC Glucose (mg/dL) 162 H 144 H (70-110) mg/dL Calcium (8.4-10.2) mg/dL 09/19/23 Range/Units 13:02 RBC (4.30-5.90) m/uL Hgb (13.0-17.5) gm/dL Hct (39.0-53.0) % MCHC (31.0-37.0) g/dL Neutrophils # (1.3-7.7) k/uL Lymphocytes # (1.0-4.8) k/uL ABG pH 7.32 L (7.35-7.45) ABG pCO2 49 H (35-45) mmHg ABG pO2 66 L (83-108) mmHg ABG HCO3 26 H (21-25) mmol/L ABG Total CO2 27 H (19-24) mmol/L ABG O2 Saturation 93.1 L (94-97) % Chloride (98-107) mmol/L Glucose (74-99) mg/dL POC Glucose (mg/dL) (70-110) mg/dL Calcium (8.4-10.2) mg/dL Assessment and Plan Assessment: Altered Mental status, likely due to metabolic encephalopathy. Patient's encephalopathy had resolved, but now seems to have got worse again. Patient was found unresponsive earlier today at 11:48 AM, re-intubated and transferred to ICU. Hypoxemia, with elevated PCO2 64. New onset severe pain in the rectal region, CT pelvis showing wall thickening of the rectum/sigmoid colon. Rule out mass lesion. 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 Plan: Patient has been intubated, and transferred to ICU. Patient had two CT head which are negative for acute process. EEG is severe encephalopathy but no seizure or discharges appreciated Is on home dose of Keppra 500 mg twice a day. Patient is on aspirin 81 mg and Lipitor 40 mg nightly. Patient denies headache. No indication for lumbar puncture. Patient was complaining of severe pain in the rectal region. This prompted testing as below. CT of the lumbar spine showed no evidence for spinal fracture. Moderate degeneration changes of the spine without evidence for significant spinal canal stenosis. Moderate bilateral L5-S1 and L4-L5 neural foraminal stenosis. Bilateral lung base consolidation possibly representing atelectasis with superimposed infection not excluded. Trace pleural effusion. CT of the pelvis revealed circumferential wall thickening of the rectum/sigmoid colon, correlate for proctitis. Prominent mesenteric lymph nodes around the rectum also present. Direct visualization if not recently performed recommended to rule out mass. Colonic diverticulosis. Fat-containing right inguinal hernia, no evidence of fracture. Mild to moderate bilateral hip osteoarthrosis and moderate degeneration changes of the spine. Surgery input appreciated. Colonoscopy was scheduled for today, but patient was not able to undergo appropriate preparation for colonoscopy therefore canceled. Thrombocytopenia has resolved. Patient's platelets are 193. Patient was on Eliquis 5 mg twice daily, but currently on hold because of upcoming colonoscopy in the morning. Hemoglobin A1c 11.9, consistent with poorly controlled diabetes. Recommend optimize control of diabetes to target A1c <7.0. B12 1686, TSH 1.35, CK 81 Will defer the rest of the medical management to primary and other specialists. Dr. Cage covering neurology service over the weekend.
--- NOTE | 2023-09-19 16:28 | CT ---
EXAMINATION TYPE: CT brain wo con DATE OF EXAM: 09/19/2023 COMPARISON: 09/08/2023 HISTORY: AMS CT DLP: 1256.3 mGycm Automated exposure control for dose reduction was used. FINDINGS: The ventricles, basal cisterns and sulci convexities are mildly to moderately enlarged consistent wit h mild to moderate generalized atrophy. There is moderate diffuse decreased density in the periventricular white matter consistent with chron ic ischemic white matter demyelination. There is no mass effect or shift of midline structures. There is no acute intra or extra-axial hemorrhage. The posterior fossa including the brainstem, fourth ventricle and cerebellopontine angles appear norm al. Intraorbital contents appear normal and symmetric There are marked chronic inflammatory changes in the maxillary sinuses. IMPRESSION: 1. Mild to moderate senescent changes. 2. No acute bleed or mass effect. IMPRESSION:
[2023-09-19 17:47] LABS: Glucose,Whole Blood 121 mg/dL (70-110)
--- NOTE | 2023-09-19 20:00 | P.PN ---
Subjective Progress Note Date: 09/19/23 H&P Date: 09/08/23 Chief Complaint: DKA, hypotension, shock This is a 67-year-old gentleman with past medical history significant for diabetes mellitus, bilateral great toe amputations, CAD, [place], seizure disorder,intubated in the field, transferred from [place] [facility], admitted with significant DKA, hypotension, shock and multiple other medical issues. C urrently in the ICU, remains vent dependent on 35% FiO2 +5 of PEEP. Maintained on Levophed, bicarb, vasopressin, amiodarone and insulin drips as well as D5.45 NS IV fluids. Requiring Flores hugger. Patient has not seen PCP since June 2022, had proceeded to live at [facility] in [place]. ICU staff reports significant other reported that [facility], came to live with her, patient was sick for approximately 4 days and she discovered him unresponsive on her couch. Unresponsive with the exception of winces at noxious stimuli, no spontaneous eye-opening. Brain CT reported no acute intracranial hemorrhage or midline shift, mild diffuse age- related cerebral atrophy and moderate probable chronic small vessel ischemic change redemonstrated. ABGs on arrival reported pH 7.04, pCO2 25, pO2 204, bicarb 7, total CO2 8, O2 sat 99.7, base excess -22.6 on 35% FiO2. chest x-ray reported lungs clear, no infiltrates, cardiac silhouette size within normal limits. Outside toxicology reported as negative;serum alcohol less than 10. received 3 L crystalloids, 1 L saline bolus, 2 g bicarb in the ER with pressors initiated. Procalcitonin 0.29, WBC count 8.0, hemoglobin 14.4, platelets 127,Sodium 143,151, potassium 5.2, 3.2, chloride 115,124, bicarb less than 5, 18, anion gap unmeasurable, 9, BUN 134, 110, creatinine 4.29, 2.76, glucose 910, 332. Lactic 1.1. LFTs WNL. Ammonia less than 9. CPK 882, 1068. Troponin 0.084. NT BNP 2720. EKG reported normal sinus rhythm. UA positive for hyaline casts, ketones ,glucose, and protein. Negative for nitrates. No seizure activity reported. 09/09/2023 paroxysmal atrial fibrillation with RVR, maintained on amiodarone drip ,telemetry currently sinus rhythm. vasopressors weaned off late last night. Remains ventilator dependent with FiO2 35%/+5 of PEEP. Chest x-ray reported suspected underlying COPD, mild patchy medial basilar densities, likely atelectasis .echo reporting technically difficult study , moderately impaired LV function EF of 40-45%. Hemoglobin A1c 11.9. Continues on insulin drip. Anion gap 6, bicarb 17, blood sugars better controlled. Sodium 150, potassium 3.3 renal function improving, BUN 88, creatinine 1.9. Preliminary sputum culture growing gram-negative bacilli, presumptive Staph aureus, blood cultures in progress. Maxipime initiated. Brain CT repeated last night reporting no significant change from most recent prior CT. remains off of sedation, grimacin g to noxious stimuli. 09/10/2023 EEG reported abnormal, background slowing suggestive of severe ence phalopathy likely due to toxic metabolic derangement. Otherwise there is no focal slowing, epileptiform discharges or seizures on the EEG. Continues on Keppra -no seizure activity. Not following commands. Staff reports patient is opening eyes to voice. Grimaces to pain. Remains off pressors and vent dependent with FiO2 35%/+5 of PEEP. Chest x-ray pending. Tmax 100.3, normal WBC. Hemoglobin 11.4, platelets 49 . sputum culture reporting E. coli, Staphylococcus aureus/MSSA, strep agalactiae group B. Maintained on cefepime. Receiving IV fluid hydration of half-normal saline , sodium 152, chloride 128. renal function improving. bicarb 16, BUN 64, creatinine 1.46. On tube feeds of Glucerna ,blood sugars in the mid to low 200s, A1c 11.9. 09/15/2023 telemetry sinus rhythm. Continues on amiodarone, Farxiga. Anticoagulated on Eliquis. Confused this morning, alert and oriented to person, knows he is in the hospital but thinks he is in [place], [place]. Maintaining O2 sat of 94% on 2 L nasal cannula on cefepime and nebulized bronchodilators. Choking on applesauce during speech therapy's evaluation, modified barium swallow ordered. Blood sugars in the low 200s during the night, better controlled this morning, 132. Hemoglobin A1c 11.9. 09/16/2023 MBS results noted-speech therapy recommending ground meats, nectar liquids, no straw, liquids from cup, small bites and sips with direct supervision , sitting upright 90 degrees and ongoing speech therapy. O2 sats improved, 97% on 2 L nasal cannula. Maintained on cefepime as per ID, afebrile, normal WBC. Hemoglobin 10, platelets 146. Potassium 2.9-supplementation and magnesium level ordered. Blood sugars better controlled. Renal function stable. Telemetry sinus rhythm. PT pending. 09/17/2023 Maintained on cefepime.yesterday Ochoa catheter discontinued but patient developed urinary retention and Ochoa catheter reinserted .ongoing lower back and rectal pain. lumbar CT reported no evidence for spinal fracture, mo derate degeneration changes without evidence for significant spinal canal stenosis, moderate bilateral L5-S1 and L4-L5 neuroforaminal stenosis, bilateral lung consolidation possibly representing atelectasis with superimposed infection not excluded, trace right pleural effusion. Pelvis CT reporting circumferential wall thickening of the rectum/sigmoid colon , prominent mesenteric lymph nodes around the rectum also present direct visualization recommended to rule out mass, colonic diverticulosis, fat-containing right inguinal hernia, no evidence of fracture, mild to moderate bilateral hip osteoarthrosis and moderate degenerative changes of the spine. Vague historian, unsure of last colonoscopy. Denies nausea vomiting. Potassium 3.5-supplemented, renal function stable. 09/18/2023 continues to complain of back and rectal pain. Eliquis remains on hold, general surgery discussing colonoscopy for tomorrow. Renal function stable, Hemoglobin 10.2, platelets 193. Blood sugars controlled. 09/19/2023 Eliquis remains on hold. Patient initially was scheduled for colonoscopy today. patient developed increased difficulty swallowing, bowel prep and colonoscopy canceled by general surgery. General surgery scheduled patient for PEG tube placement for Friday. oxygen requirement increased from 2 to 6 L nasal cannula. Spotcheck reported O2 sat of 93% on 6 L nasal cannula. Chest x- ray from last night reported right lower lobe infiltrate, minimal right pleural effusion. As the morning progressed, respiratory status declined, BiPAP and ABGs ordered. Upon entering the room to apply BiPAP, patient unresponsive and A team called, intubated and transferred to ICU. Objective - Vital Signs Vital signs: Vital Signs Temp 98.0 F 09/19/23 09:08 Pulse 91 09/19/23 14:00 Resp 24 09/19/23 14:00 BP 104/61 09/19/23 14:00 Pulse Ox 99 09/19/23 14:00 FiO2 100 09/19/23 14:00 Intake & Output 09/18/23 09/19/23 09/19/23 18:59 06:59 18:59 Intake Total 354 1056.824 Output Total 950 4400 810 Balance -596 -4400 246.824 Weight 96.8 kg Intake: IV 1050 0.9 sodium chloride 1050 Intake, IV Titration 6.824 Amount propofoL 1,000 mg In 6.824 Empty Bag 1 bag @ 15 MCG/ KG/MIN 8.712 mls/hr IV . [id number] [facility] Rx#:[id number] Oral 354 Output: Urine 950 4400 810 Other: Voiding Method Indwelling Catheter Indwelling Catheter Indwelling Catheter ABP, PAP, CO, CI - Last Documented Arterial Blood Pressure 121/60 - Exam PHYSICAL EXAM: VITAL SIGNS: [As above] GENERAL: Sedated and intubated HEENT: Normocephalic, atraumatic, eyes normal NECK: Supple, no JVD. CARDIOVASCULAR: S1, S2 regular. Systolic murmur RESPIRATION: equal air entry, scattered rhonchi, bilateral bases diminished ABDOMEN: Soft, nondistended ,nontender . No guarding. no masses palpable. LEGS: Minimal lower extremity edema. prior bilateral great toe amputations. NERVOUS SYSTEM: Obtunded, unable to assess Skin: Warm and dry . Anterior scrotal fungal rash noted. Stage I rectal pressure ulcer. - Labs CBC & Chem 7: 09/19/23 07:05 09/19/23 07:05 Labs: Abnormal Lab Results - Last 24 Hours (Table) 09/18/23 09/18/23 09/19/23 Range/Units 16:21 20:02 06:15 RBC (4.30-5.90) m/uL Hgb (13.0-17.5) gm/dL Hct (39.0-53.0) % MCHC (31.0-37.0) g/dL Neutrophils # (1.3-7.7) k/uL Lymphocytes # (1.0-4.8) k/uL ABG pH (7.35-7.45) ABG pCO2 (35-45) mmHg ABG pO2 (83-108) mmHg ABG HCO3 (21-25) mmol/L ABG Total CO2 (19-24) mmol/L ABG O2 Saturation (94-97) % Chloride (98-107) mmol/L Glucose (74-99) mg/dL POC Glucose (mg/dL) 172 H 241 H 158 H (70-110) mg/dL Calcium (8.4-10.2) mg/dL 09/19/23 09/19/23 09/19/23 Range/Units 07:05 07:05 11:22 RBC 3.85 L (4.30-5.90) m/uL Hgb 11.3 L (13.0-17.5) gm/dL Hct 37.1 L (39.0-53.0) % MCHC 30.5 L (31.0-37.0) g/dL Neutrophils # 8.7 H (1.3-7.7) k/uL Lymphocytes # 0.5 L (1.0-4.8) k/uL ABG pH (7.35-7.45) ABG pCO2 (35-45) mmHg ABG pO2 (83-108) mmHg ABG HCO3 (21-25) mmol/L ABG Total CO2 (19-24) mmol/L ABG O2 Saturation (94-97) % Chloride 112 H (98-107) mmol/L Glucose 151 H (74-99) mg/dL POC Glucose (mg/dL) 179 H (70-110) mg/dL Calcium 8.3 L (8.4-10.2) mg/dL 09/19/23 09/19/23 09/19/23 Range/Units 11:50 11:54 12:19 RBC (4.30-5.90) m/uL Hgb (13.0-17.5) gm/dL Hct (39.0-53.0) % MCHC (31.0-37.0) g/dL Neutrophils # (1.3-7.7) k/uL Lymphocytes # (1.0-4.8) k/uL ABG pH 7.24 L (7.35-7.45) ABG pCO2 64 H (35-45) mmHg ABG pO2 78 L (83-108) mmHg ABG HCO3 27 H (21-25) mmol/L ABG Total CO2 29 H (19-24) mmol/L ABG O2 Saturation (94-97) % Chloride (98-107) mmol/L Glucose (74-99) mg/dL POC Glucose (mg/dL) 162 H 144 H (70-110) mg/dL Calcium (8.4-10.2) mg/dL 09/19/23 Range/Units 13:02 RBC (4.30-5.90) m/uL Hgb (13.0-17.5) gm/dL Hct (39.0-53.0) % MCHC (31.0-37.0) g/dL Neutrophils # (1.3-7.7) k/uL Lymphocytes # (1.0-4.8) k/uL ABG pH 7.32 L (7.35-7.45) ABG pCO2 49 H (35-45) mmHg ABG pO2 66 L (83-108) mmHg ABG HCO3 26 H (21-25) mmol/L ABG Total CO2 27 H (19-24) mmol/L ABG O2 Saturation 93.1 L (94-97) % Chloride (98-107) mmol/L Glucose (74-99) mg/dL POC Glucose (mg/dL) (70-110) mg/dL Calcium (8.4-10.2) mg/dL Assessment and Plan Assessment: Acute hypoxic and hypercapnic respiratory failure, status post reintubation on 09/19/2023. Suspect aspiration Acute DKA, anion gap closed , resolved Severe anion gap metabolic acidosis secondary to the above, status post bicarb drip. Hypotensive ,hypovolemic shock, status post pressor dependent, resolved Acute hypoxic respiratory failure, status post mechanical ventilator dependent. Acute left lower lobe pneumonia as per pulmonary, sputum culture, polymicrobial, reporting E. coli, Staphylococcus aureus-MSSA, strep agalactiae group B. Dysphagia, delayed swallowing, MBS completed-speech recommending dysphagia level 2 diet, one-to-one supervision, aspiration precautions Rectal pain, wall thickening of the rectum/sigmoid colon reported per CT Fat-containing right inguinal hernia reported per CT Hyperchloremic hypernatremia, resolved. Thrombocytopenia Paroxysmal atrial fibrillation Sepsis, secondary to all the above, resolved. Acute metabolic encephalopathy secondary to all the above, suspect anoxic. Brain CT did not report any acute abnormalities, EEG reported slowing suggestive of severe encephalopathy likely due to toxic metabolic derangement. Acute rhabdomyolysis Acute renal failure, improving Elevated troponin, multifactorial secondary to all the above, ACS ruled out,Type II [place] as per cardiology. Severe dehydration Diabetes mellitus type 2, hemoglobin A1c 11.9 CAD, history of [place], stent History of seizure disorder, on Keppra Stage I pressure ulcer, 1 cm near rectum Fungal rash, anterior scrotum Hypokalemia Plan: Continue on current medication resume ,monitoring and symptomatic treatment. Eliquis placed on hold yesterday for colonoscopy,PEG tube procedure as per general surgery. Anticoagulation to be addressed pending brain CT results, continues on SCDs. continue cefepime, Flagyl. ICU management as per narrow gauge operator. Chest x-ray pending. Prognosis guarded given multiple complex medical issues. The impression and plan of care has been dictated as directed. : I performed a history and examination of this patient, discussed the same with the dictator. I agree with the dictator's note ,documented as a scribe. Any additional findings or plans will be noted.
--- NOTE | 2023-09-19 20:10 | OP ---
OPERATIVE REPORT DATE OF SERVICE : PROCEDURE PERFORMED: Placement of a left radial arterial line. PREOPERATIVE DIAGNOSIS: Acute hypoxic respiratory failure. POSTOPERATIVE DIAGNOSIS: Acute hypoxic respiratory failure. ANESTHESIA USED: None deployed. DESCRIPTION OF PROCEDURE: The patient was placed in the supine position. Left radial artery was palpated, easily cannulated, and a guidewire was placed. A Cook's catheter was inserted over the guidewire, and the guidewire was removed. Good blood flow, good waveform noted. No complications. Line was secured using 3.0 silk sutures. MMODL / IJN: [id number] /
[2023-09-19] MEDS: CHLORHEXIDINE GLUCONATE 15 ML CUP MUCOUS MEM SCH (20:21)
--- NOTE | 2023-09-19 21:00 | OP ---
OPERATIVE REPORT DATE OF SERVICE : OPERATIVE REPORT: Bronchoscopy and BAL. PREOPERATIVE DIAGNOSIS: Bilateral pneumonia with possible aspiration. POSTOPERATIVE DIAGNOSIS: Bilateral pneumonia with possible aspiration and acute hypoxic respiratory failure. ANESTHESIA USED: The patient was already on propofol, intubated, mechanically ventilated, and 10 mg of Nimbex were used prior to procedure. DESCRIPTION OF PROCEDURE: The patient was placed in supine position, the adapter was applied to the endotracheal tube and connected to mechanical ventilation. We continued to monitor the patient's O2 saturation continuously. Blood pressure was intermittently monitored, and cardiac rhythm was continuously monitored. After adequate sedation, the bronchoscope was advanced through the adapter down to the distal end of the endotracheal tube and thorough examination was done of right upper lobe, right middle lobe, right lower lobe, left upper lobe, lingula, and left lower lobe. There was evidence of apparent secretions noted throughout the airways. These were mostly in the lower lobes, suctioned until clear. Lavage of the right upper lobe, lavage of the right middle lobe and right lower lobe as well as lavage of the left upper lobe, lingula, and left lower lobe was also done. Fluid was purulent in color, sent for different diagnostic studies. Procedure was well tolerated. No complications. MMODL / IJN: [id number] /
--- NOTE | 2023-09-19 21:06 | OP ---
OPERATIVE REPORT DATE OF SERVICE : PROCEDURE PERFORMED: Left subclavian central line placement. PREOPERATIVE DIAGNOSIS: Acute hypoxic respiratory failure and aspiration pneumonia. POSTOPERATIVE DIAGNOSIS: Acute hypoxic respiratory failure and aspiration pneumonia. ANESTHESIA USED: 2 mL of 1% lidocaine. DESCRIPTION OF PROCEDURE: The patient was placed in a Trendelenburg position, the left subclavian area was prepared in a sterile fashion. Drapes were applied. The area was locally anesthetized. Using the inferior approach, the left subclavian vein was easily cannulated, guidewire was placed, area around the guidewire was dilated. A triple- lumen catheter inserted over the guidewire, and the guidewire was removed. Good blood flow noted in the 3 different ports of the triple-lumen catheter, line was secured using 3.0 silk sutures, chest x-ray is pending at the time of this dictation. MMKURT / MASSIMON: [id number] /
[2023-09-19] MEDS: ENOXAPARIN 80 MG/0.8 ML SYRINGE SQ SCH (22:07)
[2023-09-19] MEDS: NOREPINEPHRINE 4 MG in SODIUM CHLORIDE 0.9% 250 ML IV SCH (22:32)
[2023-09-19] MEDS: PIPERACILLIN-TAZOBACTAM 3.375 GM in SODIUM CHLORIDE 0.9% 100 ML IVPB SCH (23:30)
[2023-09-19 23:43] LABS: Glucose,Whole Blood 129 mg/dL (70-110)
[2023-09-20] MEDS: INSULIN ASPART (NovoLOG) 100 UNIT/ML VIAL SQ SCH (00:28)
[2023-09-20] MEDS: ACETAMINOPHEN IV (For NPO) 1,000 MG in EMPTY BAG 1 BAG IVPB ONE (01:07)
[2023-09-20 05:05] LABS: ABG Base Excess -3.7 mmol/L; ABG HCO3 23 mmol/L (21-25); ABG Oxygen Saturation 97.1 % (94-97); ABG PCO2 47 mmHg (35-45); ABG PO2 92 mmHg (83-108); ABG TCO2 24 mmol/L (19-24)
[2023-09-20 05:09] LABS: Allen Test Performed? no
[2023-09-20 05:23] LABS: HCT 30.8 % (39.0-53.0); Hypochromasia Moderate; MCH 29.5 pg (25.0-35.0); MCHC 30.3 g/dL (31.0-37.0); MCV 97.1 fL (80.0-100.0); Mean Platelet Volume 9.3; Platelet Count 253 k/uL (150-450); RBC 3.17 m/uL (4.30-5.90); RDW 13.4 % (11.5-15.5)
[2023-09-20 05:24] LABS: HGB 9.3 gm/dL (13.0-17.5)
[2023-09-20 05:29] LABS: ALT 11 U/L (4-49); AST 21 U/L (17-59); African American GFR (CKD) 58 (>60 ml/min/1.73 sqM); Albumin 1.9 g/dL (3.5-5.0); Alkaline Phosphatase 90 U/L (38-126); Anion Gap 6 mmol/L; Blood Urea Nitrogen 29 mg/dL (9-20); Calcium 8.2 mg/dL (8.4-10.2); Carbon Dioxide 22 mmol/L (22-30); Chloride 117 mmol/L (98-107); Glucose 152 mg/dL (74-99); Non-African American GFR(CKD) 50 (>60 ml/min/1.73 sqM); Potassium 4.5 mmol/L (3.5-5.1); Sodium 145 mmol/L (137-145); Total Bilirubin 0.6 mg/dL (0.2-1.3); Total Protein 4.4 g/dL (6.3-8.2)
[2023-09-20 05:46] LABS: Appearance,BF Cloudy (Clear); RBC, Body Fluid 21375 /UL (0-2000)
[2023-09-20 06:23] LABS: Glucose,Whole Blood 176 mg/dL (70-110)
--- NOTE | 2023-09-20 08:39 | XR ---
EXAMINATION TYPE: XR chest 1V portable DATE OF EXAM: 09/20/2023 COMPARISON: 09/19/2023 INDICATION: Tube placement TECHNIQUE: Single frontal view of the chest is obtained. FINDINGS: The heart size is normal. The pulmonary vasculature is normal. Mild bibasilar infiltrates are present. This may extend to the right mid lung. Endotracheal tube tip has its tip above the mahesh. Nasogastric tube transverses the thorax the tip i n the left upper quadrant of the abdomen. Left central venous catheter is present with tip in the sup erior vena cava region. IMPRESSION: 1. Bilateral slight increased lung markings present previously. Correlate for atelectasis or pneumoni a. Continued follow-up is recommended. 2. Lines and catheters discussed above.
[2023-09-20] MEDS ORDERED: fentaNYL (PF). 1,000 MCG in SODIUM CHLORIDE 0.9% 80 ML IV SCH (09:00)
[2023-09-20] MEDS: SODIUM CHLORIDE 0.9% 1,000 ML IV ONE ×2 (09:03→10:40)
--- NOTE | 2023-09-20 10:54 | P.PN ---
Subjective Progress Note Date: 09/20/23 Principal diagnosis: Acute diabetic ketoacidosis and acute left lower lobe pneumonia with polymicrobial growth on the sputum Patient is a 67-year-old male with past medical history significant for diabetes mellitus, prior toe amputations, hyperlipidemia, coronary artery disease with previous stents, and seizure disorder. He is currently intubated to the mechanical ventilator, unresponsive without any sedation, unable to provide any information. Patient was transferred from [facility] late last night. Apparently, found unresponsive by his girlfriend, and last known well was 24 hours prior. Patient was intubated by EMS on arrival and triaged to [facility]. Initial presentation was consistent with DKA. Subsequently, the patient was transferred to [facility]. Patient is currently in trauma bay 1, he is intubated mechanical ventilator. Chest x-ray on arrival to our facility shows the endotracheal tube in satisfactory position approximately 4 cm above the mahesh. There is an orogastric tube that should be advanced. Right IJ central line catheter appears to terminate at the Cavo atrial junction. No focal infiltrates or evidence of pneumonia. Current ventilator settings are assist-control, respiratory rate 14, tidal volume 500, FiO2 35%, PEEP of 5. He is breathing slightly above set rate. Not on any sedation. Remains unresponsive even to deep painful stimuli. CT of the brain did not show any acute intracranial hemorrhage or mass effect. ABG is consistent with profound metabolic acidosis, with a PaO2 of 204, pCO2 of 25, pH of 7.04. Patient has been given a total of 2 A of bicarb. He is hypotensive and in a shock state, he has been fluid resuscitated with at least 2.5 L crystalloid fluid. No insulin infusion is currently ordered. He remains profoundly hypotensive, and has been started on norepinephrine which is currently infusing at 0.06 mcg/kg/min. CBC: WBC count 8.8, hemoglobin 14.5, hematocrit 50.3, platelets 136. CMP: Sodium 143, potassium 5.2, chloride 115, serum bicarb less than 5, anion gap unmeasurable, BUN 134, creatinine 4.29, glucose 910. Lactic 1.1. LFTs not elevated. Total bilirubin 0.7. Ammonia less than 9. CPK was 882. Troponin 0.084. NT BNP 2720. EKG shows normal sinus rhythm and is nondiagnostic for acute ischemia. Urinalysis positive for glucose and ketones. Urine toxicology screen at outside facility was essentially negative. Serum alcohol less than 10. Patient will be admitted to the intensive care unit once bed available. Today's evaluation of 09/09/2023, the patient is being seen for a follow-up. The patient remains off sedatives. He is grimacing to painful stimulation. He did have a CAT scan of the brain yesterday that showed no acute abnormalities. Suspect a component of hypoxic encephalopathy as the patient apparently was hypoxic when the patient was picked up by the EMS. At this point in time, the patient is grimacing only to deep painful stimulation. Not following any commands yet. The patient has recovered from his anion gap metabolic acidosis related to DKA. The patient is currently on half-normal saline at rate of 100 cc an hour. Most recent blood work shows a gap of 6 with a serum bicarb of 17. Sodium levels at 151. Potassium level at 3.3 which is being replaced. Blood sugars 879. The patient remains on insulin drip and the patient will be transition to long-acting insulin. Remains on the mechanical ventilator assist- control mode at rate of 20, tidal volume of 500, FiO2 of 35% with a PEEP of 5. Blood gas showed a pH of 7.4 with a pCO2 of 29 and pO2 of 103. The patient was tachypneic volume second mechanical ventilation the patient was switched to pressure control. CVP was 2 and after receiving a total of 3 L of fluid and the CVP came up to 8 and the patient has been off pressors since 11:30 PM yesterday. Cardiac rhythm is sinus. The patient is completing albuterol and loading and the patient is currently on 0.5 mg/min. Echocardiogram was done and patient has an ejection fraction of 40 to 45%. The white cell count today is at 5 with a hemoglobin of 12 and a platelet count of 62. Chest x-ray findings are stable. Some atelectatic changes in lung base bilaterally. No antibiotic coverage at this point in time. Sputum is showing gram-negative bacillus and presumptive Staph aureus. 09/10/2023, I am seeing the patient for a follow-up. The patient remains encephalopathic. He grimaces to painful stimulation in all 4 extremities and is withdrawing to pain. Nevertheless, does not follow any commands. His mobility is less in his lower extremities compared to the upper extremities. No seizure activity has been noted. CAT scan of the brain was negative. EEG showed moderate to severe encephalopathy. Suspect hypoxic encephalopathy. Meanwhile, the patient remains intubated on mechanical ventilator. On today's evaluation, he is on no sedation. He is on pressure control mode of mechanical ventilation at rate of 20, pressure control of 15, inspiratory time 0.9 with an FiO2 of 35% and a PEEP of 5. Blood gases from today showed a pH of 7.45 with a pCO2 of 25 and a pO2 of 97. Chest x-ray findings are stable and there is no significant interval change and there is no definite acute process. Based on the positive sputum culture, the patient was started on IV cefepime. Sputum sample was positive for a combination of bacteria including E. coli, Staph aureus/MSSA and Streptococcus. He is afebrile. Hemodynamically stable and he is on no pressors. In fact, he has developed some hypochloremic hyponatremia. He remains on half-normal saline at rate of 100 cc an hour. BUN 64 with a creatinine of 1.46 and a sodium level at 152 and a chloride level is 128. Potassium is at 3.5. WBC count is at 4.7 with a hemoglobin of 1.4 and a platelet count of 49. The patient's blood sugar is at 281. The patient remains on Levemir insulin which is at 15 units and the patient is also on sliding scale coverage. The patient is sitting enteral feeding for nutritional support and the patient is on Glucerna at a rate of 31 cc an hour. On 09/11/2023, the patient is being seen for a follow-up. Opening of his eyes. Not following commands consistently. Remains on mechanical ventilator. Currently is on a pressure control mode with rate of 20, pressure of 50 cm of water, respiratory exam of 0.9, FiO2 35% with a PEEP of 5. Blood gas showed a pH of 7.44 with episodes of 32 and pO2 of 109. Chest x-ray findings are stable. Hemodynamically stable. No pressors. He is on no sedative medications for now. Afebrile. Remains on IV cefepime. White cell count is 7.4, hemoglobin is 11.5 and a platelet count of 59. Sodium is 155, potassium is at 4, chloride is 131, BUN is 51 with a creatinine 1.2. LFTs are stable, CPK is down to 214. The patient is running a low-grade fever. Remains on IV cefepime. Sputum culture was polymicrobial including E. coli, Streptococcus and MSSA. Further blood cultures have been sent. No pressors for now. He is currently on Levemir insulin and sliding scale insulin coverage. The patient is also on Glucerna for enteral feeding and nutritional support she is currently at goal at 54 cc an hour. 09/12/2023, I am seeing the patient for a follow-up. The patient is off sedation. The patient is awake and alert and the patient has been on a pressure support mode of mechanical ventilation throughout the night. The patient is currently on a PSV of 7 and a PEEP of 5. The patient is following simple commands. Blood gas from today shows a pH of 7.41 with a pCO2 of 37 and pO2 of 94. Chest x-ray showing a right lower lobe consolidation which could be an area of pneumonia. The patient is currently afebrile. The patient remains on IV cefepime. The tube feeds are currently on hold in anticipation for possible extubation today. Meanwhile, the patient's blood work shows a white cell count of 6.5, hemoglobin 10.7 and a platelet count of 59. Sodium is currently down to 151. BUN is 46 with a creatinine of 1.1. LFTs are normal. Renal function is normal. CPK is down to 81. No other significant events overnight. Hemodynamically stable. Cardiac rhythm is sinus. 09/13/2023, the patient is being seen for the follow-up. The patient was weaned off the mechanical ventilator and the patient was extubated. On today's evaluation, he is alert and awake and is communicating. Nevertheless, he does have some confusion. He is alert and oriented x 1. No signs of respiratory distress. Continues to have a cough and nasal congestion and a chest x-ray from today is essentially unchanged and the patient has stable patchy opacities in the lung base bilaterally. Remains on IV cefepime. Hemodynamically stable. Sodium level is improving and currently is down to 149. Blood sugars under adequate control and the patient is using Levemir insulin 30 units in addition to NovoLog 4 times a day and a sliding scale coverage. Renal function has normalized. No pressors for now. No fever. Remains on D5 water at the rate of 100 cc an hour. 09/14/2023, the patient is being seen for a follow-up. The patient had transferred out of the intensive care unit yesterday. He is alert and communicating. There is some limited baseline confusion. No agitation. No significant respiratory distress. Awaiting labs from today. The patient remains on D5 water. The patient remains on Levemir insulin. Recovered from his DKA. He is able to swallow and he has been provided a diet. No other significant events overnight. The patient remains on IV cefepime regarding bilateral pneumonia. The patient remains on DuoNeb nebulized treatments [id number]. Remains on anticoagulation with Eliquis. Remains on Levemir insulin 15 units at bedtime and NovoLog sliding scale coverage. Remains on IV Protonix. Patient was placed today on 09/15/2023, patient is being followed for his initial presentation with DKA and questionable left lower lobe pneumonia. Patient is doing well today, on 2 L nasal cannula, O2 saturation 93%. Does not seem to be in any form of distress. His sugar today is 294, his anion gap was nonexistent on the labs noted yesterday, and his BUN is 24 creatinine 0.82. Patient remains on amiodarone, Eliquis, he is also on cefepime and fark [employer]. In addition the patient is on DuoNeb updraft 4 times daily and as needed. And on Levemir insulin as well as insulin scale. Patient was evaluated today on 09/16/2023, patient is doing well, relatively asymptomatic, on 2 L nasal cannula O2 sat is 97%. He is hemodynamically stable, blood sugars have been in the range of 144 up to 200 his WBC count is 8.4 hemoglobin is 10 electrolytes are normal except for low potassium of 2.9 his last chest x-ray from 09/12 showed possible left lower lobe pneumonia Patient was evaluated today on 09/17/2023, pulmonary rosario the patient is doing well, does not seem to be in distress, however he is complaining of back pain and rectal pain, his CT of the pelvis showed wall thickening of the rectum/sigmoid colon. Otherwise the patient is doing well, and his abnormal CT of the pelvis is being addressed by surgery on the case. Patient is being considered for colonoscopy and Eliquis will be placed on hold Patient was evaluated today on 09/18/2023, patient is about the same, continues to have some discomfort in his back and in his rectal area, supposed to have colonoscopy tomorrow. Eliquis remains on hold. Patient has no active pulmonary issues. WBC count is 8.6 hemoglobin 10.2 electrolytes are normal renal profile is normal The patient was seen today September 19, 2023 in follow-up on the selective care unit. Today he is found to be weak and obtunded. He is requiring more oxygen currently at 6 L high flow nasal cannula. A rapid response team was called on him. Chest x-ray and ABGs reviewed. He will be transferred to the intensive care unit. Serial blood gases on 100% FiO2 revealed a P O2 of 66, pCO2 of 49 and a pH of 7.32. White count 9.9. Hemoglobin 11.3. Platelets 233. Sodium 143. Potassium 4.5. Bicarb 26. BUN 17. Creatinine 0.87. Glucose 151. The patient has been having concerns of rectal pain and possible rectal mass and the plan was for colonoscopy. However the patient was having ongoing issues with difficulty in swallowing and was being considered for PEG tube placement. This was prior to his change in clinical status. X-ray did reveal a right lower lobe infiltrate with minimal right pleural effusion. Patient was evaluated today on 09/20/2023, patient developed a worsening pulmona ry status yesterday, required transfer to the ICU intubation mechanical ventilation. I saw the patient yesterday, he underwent bronchoscopy, lines were placed and the patient, and he was kept on mechanical ventilation overnight. Patient is now on assist-control rate of 24 tidal volume 450 FiO2 was 80% earlier but is now 50%, and PEEP of 10 ABG showed a pO2 of 92 pCO2 47 pH of 7.30 his urine output is 5 to 20 cc/h, however his CVP is low and the patient will require more fluid boluses if no improvement after fluid boluses, then we will give the patient Lasix. In the meantime the patient is requiring propofol at 35 mg/kg/min norepinephrine at 0.06 mg/kg/min IV fluid running at 100 cc/h and the patient is also receiving vital HP at 10 cc/h antibiotics rosario he is receiving Flagyl and Zosyn. Chest x-ray continues to show bilateral infiltrates consistent with most likely aspiration pneumonia. Patient was seen by infectious disease and he is now on Flagyl and ZosynWBC count today is 13 h emoglobin 9.3 basic metabolic profile is normal renal profile showed a BUN of 29 creatinine 1.45 Objective - Vital Signs Vital signs: Vital Signs Temp 98.9 F 09/20/23 04:00 Pulse 93 09/20/23 08:20 Resp 25 H 09/20/23 07:30 BP 114/61 09/20/23 07:30 Pulse Ox 99 09/20/23 07:30 FiO2 50 09/20/23 08:42 Intake & Output 09/19/23 09/20/23 09/20/23 18:59 06:59 18:59 Intake Total 2271.487 2636.237 304.690 Output Total 930 140 0 Balance 7891.729 1875.237 304.690 Weight 96.8 kg Intake: IV 2200 2374 103 0.9 sodium chloride 2200 1150 100 ACETAMINOPHEN IV (For NPO 100 ) 1,000 mg In Empty Bag 1 bag @ 400 mls/hr IVPB ONCE ONE Rx#:[id number] Piperacillin-Tazobactam 3 100 .375 gm In Sodium Chloride 0.9% 100 ml @ 25 mls/hr IVPB Q8HR [facility] Rx# :[id number] Pressure Bag 24 3 Sodium Chloride 0.9% 1, 1000 000 ml @ 999 mls/hr IV . Q1H1M ONE Rx#:[id number] Intake, IV Titration 71.487 262.237 201.690 Amount Norepinephrine 4 mg In 93.122 114.328 Sodium Chloride 0.9% 250 ml @ 0.03 MCG/KG/MIN 11. 064 mls/hr IV .[id number] [facility] Rx#:[id number] propofoL 1,000 mg In 71.487 169.115 87.362 Empty Bag 1 bag @ 15 MCG/ KG/MIN 8.712 mls/hr IV . [id number] [facility] Rx#:[id number] Output: Urine 930 140 0 Other: Voiding Method Indwelling Catheter Indwelling Catheter # Bowel Movements 1 ABP, PAP, CO, CI - Last Documented Arterial Blood Pressure 108/41 - Exam GENERAL EXAM: 67-year-old white male intubated, mechanically ventilated, sedated, not in distress Endotracheal tube and orogastric tube are intact. HEAD: Normocephalic and atraumatic EYES: Within normal NOSE: Clear with pink turbinates. THROAT: No erythema or exudates. Dry mucous membranes. NECK: No masses, no JVD. CHEST: No chest wall deformity. LUNGS: Crackles at the bases with scattered rhonchi. CVS: S1 and S2 normal with no soft systolic murmur, regular rhythm. No extra heart sounds ABDOMEN: Abdomen flat, active bowel sounds, no hepatosplenomegaly, no guarding or rigidity. SKIN: No rashes CENTRAL NERVOUS SYSTEM: Could not assess patient is sedated intubated mechanically ventilated Theatric: Could not assess EXTREMITIES: no clubbing, no cyanosis, trace of bipedal edema. - Labs CBC & Chem 7: 09/20/23 04:50 09/20/23 04:50 Labs: Abnormal Lab Results - Last 24 Hours (Table) 09/19/23 09/19/23 09/19/23 Range/Units 11:22 11:50 11:54 WBC (3.8-10.6) k/uL RBC (4.30-5.90) m/uL Hgb (13.0-17.5) gm/dL Hct (39.0-53.0) % MCHC (31.0-37.0) g/dL ABG pH 7.24 L (7.35-7.45) ABG pCO2 64 H (35-45) mmHg ABG pO2 78 L (83-108) mmHg ABG HCO3 27 H (21-25) mmol/L ABG Total CO2 29 H (19-24) mmol/L ABG O2 Saturation (94-97) % Chloride (98-107) mmol/L BUN (9-20) mg/dL Creatinine (0.66-1.25) mg/dL Glucose (74-99) mg/dL POC Glucose (mg/dL) 179 H 162 H (70-110) mg/dL Calcium (8.4-10.2) mg/dL Total Protein (6.3-8.2) g/dL Albumin (3.5-5.0) g/dL Fluid Appearance (Clear) 09/19/23 09/19/23 09/19/23 Range/Units 12:19 13:02 15:30 WBC (3.8-10.6) k/uL RBC (4.30-5.90) m/uL Hgb (13.0-17.5) gm/dL Hct (39.0-53.0) % MCHC (31.0-37.0) g/dL ABG pH 7.32 L (7.35-7.45) ABG pCO2 49 H (35-45) mmHg ABG pO2 66 L (83-108) mmHg ABG HCO3 26 H (21-25) mmol/L ABG Total CO2 27 H (19-24) mmol/L ABG O2 Saturation 93.1 L (94-97) % Chloride (98-107) mmol/L BUN (9-20) mg/dL Creatinine (0.66-1.25) mg/dL Glucose (74-99) mg/dL POC Glucose (mg/dL) 144 H (70-110) mg/dL Calcium (8.4-10.2) mg/dL Total Protein (6.3-8.2) g/dL Albumin (3.5-5.0) g/dL Fluid Appearance Cloudy A (Clear) 09/19/23 09/19/23 09/20/23 Range/Units 17:46 23:42 04:50 WBC (3.8-10.6) k/uL RBC (4.30-5.90) m/uL Hgb (13.0-17.5) gm/dL Hct (39.0-53.0) % MCHC (31.0-37.0) g/dL ABG pH (7.35-7.45) ABG pCO2 (35-45) mmHg ABG pO2 (83-108) mmHg ABG HCO3 (21-25) mmol/L ABG Total CO2 (19-24) mmol/L ABG O2 Saturation (94-97) % Chloride 117 H (98-107) mmol/L BUN 29 H (9-20) mg/dL Creatinine 1.45 H (0.66-1.25) mg/dL Glucose 152 H (74-99) mg/dL POC Glucose (mg/dL) 121 H 129 H (70-110) mg/dL Calcium 8.2 L (8.4-10.2) mg/dL Total Protein 4.4 L (6.3-8.2) g/dL Albumin 1.9 L (3.5-5.0) g/dL Fluid Appearance (Clear) 09/20/23 09/20/23 09/20/23 Range/Units 04:50 05:06 06:21 WBC 13.0 H (3.8-10.6) k/uL RBC 3.17 L (4.30-5.90) m/uL Hgb 9.3 L D (13.0-17.5) gm/dL Hct 30.8 L (39.0-53.0) % MCHC 30.3 L (31.0-37.0) g/dL ABG pH 7.30 L (7.35-7.45) ABG pCO2 47 H (35-45) mmHg ABG pO2 (83-108) mmHg ABG HCO3 (21-25) mmol/L ABG Total CO2 (19-24) mmol/L ABG O2 Saturation 97.1 H (94-97) % Chloride (98-107) mmol/L BUN (9-20) mg/dL Creatinine (0.66-1.25) mg/dL Glucose (74-99) mg/dL POC Glucose (mg/dL) 176 H (70-110) mg/dL Calcium (8.4-10.2) mg/dL Total Protein (6.3-8.2) g/dL Albumin (3.5-5.0) g/dL Fluid Appearance (Clear) Microbiology - Last 24 Hours (Table) 09/19/23 15:30 Gram Stain - Preliminary Bronchial Washings - Random Assessment and Plan Assessment: Impression: Acute hypoxic respiratory failure secondary to aspiration pneumonia, this is the second time with the patient and Intubated and mechanically ventilated, patient was reintubated today on 09/18 and remains intubated Acute diabetic ketoacidosis, resolved acute hypoxic respiratory failure secondary to aspiration pneumonia Hypovolemic shock on presentation, resolved Acute respiratory failure with lower lobe patchy infiltrate/pneumonia. Required intubation previously but he was extubated on 09/11 Acute rhabdomyolysis Fever, secondary to above, resolved patient remains on cefepime Encephalopathy, rule out anoxic encephalopathy. Mental status is improving Acute rhabdomyolysis, CPK level were elevated. Improving Acute kidney injury, secondary to combination of above, renal function is im proving Elevated troponins, likely supply/demand mismatch History of type 2 diabetes mellitus History of bilateral great toe amputations History of hyperlipidemia History of coronary artery disease with previous PCI/stent History of seizure disorder, no seizure activity noted LV dysfunction with ejection fraction of 40 to 45% Recommendation: Continue ventilatory support Continue IV fluids and continue fluid boluses Continue hemodynamic support Continue antibiotics including Zosyn and Flagyl Continue GI and DVT prophylaxis Addressed nutritional support/enteral feeding Continue Levemir insulin and sliding scale/NovoLog insulin Patient is critically ill, prognosis is guarded, this is the second time that the patient gets intubated and mechanically ventilated on this admission if no major improvement in the next few days, may have to consider patient for tracheostomy and PEG tube placement, not to mention the patient was supposed to have a PEG tube in the first place prior to his intubation Patient is critically ill and critical care time is over 30 Will continue to follow Time with Patient: Greater than 30
--- NOTE | 2023-09-20 11:05 | P.PN ---
Subjective Progress Note Date: 09/20/23 The patient is a 67-year-old male who was seen in neurologic follow-up on September 20, 2023, in collaboration with Maritza Hui, via teleneurology. Patient's chart has been reviewed. Patient remains intubated and sedated. According to the nurse, the patient has been unresponsive. Labs this morning reveal an elevated white count of 13.0. Hemoglobin low at 9.3. BUN and creatinine are elevated at 29 and 1.45 respectively. Objective - Vital Signs Vital signs: Vital Signs Temp 98.9 F 09/20/23 04:00 Pulse 93 09/20/23 08:20 Resp 25 H 09/20/23 07:30 BP 114/61 09/20/23 07:30 Pulse Ox 99 09/20/23 07:30 FiO2 50 09/20/23 08:42 Intake & Output 09/19/23 09/20/23 09/20/23 18:59 06:59 18:59 Intake Total 2271.487 2636.237 158.902 Output Total 930 140 0 Balance 6956.026 8371.237 158.902 Weight 96.8 kg Intake: IV 2200 2374 103 0.9 sodium chloride 2200 1150 100 ACETAMINOPHEN IV (For NPO 100 ) 1,000 mg In Empty Bag 1 bag @ 400 mls/hr IVPB ONCE ONE Rx#:[id number] Piperacillin-Tazobactam 3 100 .375 gm In Sodium Chloride 0.9% 100 ml @ 25 mls/hr IVPB Q8HR [facility] Rx# :[id number] Pressure Bag 24 3 Sodium Chloride 0.9% 1, 1000 000 ml @ 999 mls/hr IV . Q1H1M ONE Rx#:[id number] Intake, IV Titration 71.487 262.237 55.902 Amount Norepinephrine 4 mg In 93.122 Sodium Chloride 0.9% 250 ml @ 0.03 MCG/KG/MIN 11. 064 mls/hr IV .[id number] [facility] Rx#:[id number] propofoL 1,000 mg In 71.487 169.115 55.902 Empty Bag 1 bag @ 15 MCG/ KG/MIN 8.712 mls/hr IV . [id number] [facility] Rx#:[id number] Output: Urine 930 140 0 Other: Voiding Method Indwelling Catheter Indwelling Catheter # Bowel Movements 1 ABP, PAP, CO, CI - Last Documented Arterial Blood Pressure 108/41 - Exam General: The patient is supine in the bed. He is sedated and intubated. HEENT: Head is atraumatic, normocephalic. Fundus not visualized. There is no scleral icterus. Mucous members are moist. Extremities: Generalized edema Neurological examination Mental status: Patient is intubated and sedated with 50 of propofol. He is not responsive to verbal and noxious stimulation. Cranial nerves: Pupils are equal at 2 mm, nonreactive. Gaze is forward. There is no blink to visual threat. There is no obvious facial asymmetry as can be determined in the setting of intubation. Motor: There are no spontaneous movements Sensation: No withdrawal from noxious stimulation of all 4 extremities. No response to sternal rub. - Labs CBC & Chem 7: 09/20/23 04:50 09/20/23 04:50 Labs: Abnormal Lab Results - Last 24 Hours (Table) 09/19/23 09/19/23 09/19/23 Range/Units 11:22 11:50 11:54 WBC (3.8-10.6) k/uL RBC (4.30-5.90) m/uL Hgb (13.0-17.5) gm/dL Hct (39.0-53.0) % MCHC (31.0-37.0) g/dL ABG pH 7.24 L (7.35-7.45) ABG pCO2 64 H (35-45) mmHg ABG pO2 78 L (83-108) mmHg ABG HCO3 27 H (21-25) mmol/L ABG Total CO2 29 H (19-24) mmol/L ABG O2 Saturation (94-97) % Chloride (98-107) mmol/L BUN (9-20) mg/dL Creatinine (0.66-1.25) mg/dL Glucose (74-99) mg/dL POC Glucose (mg/dL) 179 H 162 H (70-110) mg/dL Calcium (8.4-10.2) mg/dL Total Protein (6.3-8.2) g/dL Albumin (3.5-5.0) g/dL Fluid Appearance (Clear) 09/19/23 09/19/23 09/19/23 Range/Units 12:19 13:02 15:30 WBC (3.8-10.6) k/uL RBC (4.30-5.90) m/uL Hgb (13.0-17.5) gm/dL Hct (39.0-53.0) % MCHC (31.0-37.0) g/dL ABG pH 7.32 L (7.35-7.45) ABG pCO2 49 H (35-45) mmHg ABG pO2 66 L (83-108) mmHg ABG HCO3 26 H (21-25) mmol/L ABG Total CO2 27 H (19-24) mmol/L ABG O2 Saturation 93.1 L (94-97) % Chloride (98-107) mmol/L BUN (9-20) mg/dL Creatinine (0.66-1.25) mg/dL Glucose (74-99) mg/dL POC Glucose (mg/dL) 144 H (70-110) mg/dL Calcium (8.4-10.2) mg/dL Total Protein (6.3-8.2) g/dL Albumin (3.5-5.0) g/dL Fluid Appearance Cloudy A (Clear) 09/19/23 09/19/23 09/20/23 Range/Units 17:46 23:42 04:50 WBC (3.8-10.6) k/uL RBC (4.30-5.90) m/uL Hgb (13.0-17.5) gm/dL Hct (39.0-53.0) % MCHC (31.0-37.0) g/dL ABG pH (7.35-7.45) ABG pCO2 (35-45) mmHg ABG pO2 (83-108) mmHg ABG HCO3 (21-25) mmol/L ABG Total CO2 (19-24) mmol/L ABG O2 Saturation (94-97) % Chloride 117 H (98-107) mmol/L BUN 29 H (9-20) mg/dL Creatinine 1.45 H (0.66-1.25) mg/dL Glucose 152 H (74-99) mg/dL POC Glucose (mg/dL) 121 H 129 H (70-110) mg/dL Calcium 8.2 L (8.4-10.2) mg/dL Total Protein 4.4 L (6.3-8.2) g/dL Albumin 1.9 L (3.5-5.0) g/dL Fluid Appearance (Clear) 09/20/23 09/20/23 09/20/23 Range/Units 04:50 05:06 06:21 WBC 13.0 H (3.8-10.6) k/uL RBC 3.17 L (4.30-5.90) m/uL Hgb 9.3 L D (13.0-17.5) gm/dL Hct 30.8 L (39.0-53.0) % MCHC 30.3 L (31.0-37.0) g/dL ABG pH 7.30 L (7.35-7.45) ABG pCO2 47 H (35-45) mmHg ABG pO2 (83-108) mmHg ABG HCO3 (21-25) mmol/L ABG Total CO2 (19-24) mmol/L ABG O2 Saturation 97.1 H (94-97) % Chloride (98-107) mmol/L BUN (9-20) mg/dL Creatinine (0.66-1.25) mg/dL Glucose (74-99) mg/dL POC Glucose (mg/dL) 176 H (70-110) mg/dL Calcium (8.4-10.2) mg/dL Total Protein (6.3-8.2) g/dL Albumin (3.5-5.0) g/dL Fluid Appearance (Clear) Microbiology - Last 24 Hours (Table) 09/19/23 15:30 Gram Stain - Preliminary Bronchial Washings - Random Assessment and Plan Assessment: Altered Mental status, likely due to metabolic encephalopathy. New onset severe pain in the rectal region, CT pelvis showing wall thickening of the rectum/sigmoid colon. Rule out mass lesion. 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 Plan: 1. Your medical management all multiple etiologies of toxic metabolic encephalopathy 2. Neurology will sign off at this time. No further neurologic intervention is needed. Please call with questions or concerns. Time with Patient: Less than 30 (25 minutes were spent caring for this patient today including, obtaining history, examining the patient, reviewing imaging, c brown documentation, labs and creating this note)
[2023-09-20 11:58] LABS: Glucose,Whole Blood 118 mg/dL (70-110)
--- NOTE | 2023-09-20 13:29 | P.PN ---
Subjective Progress Note Date: 09/20/23 Romel Malin is a 67-year-old male with past medical history significant for diabetes mellitus, prior toe amputations, hyperlipidemia, coronary artery disease with previous stents, and seizure disorder. He is currently intubated to the mechanical ventilator, unresponsive without any sedation, unable to provide any information. Patient was transferred from [facility] late last night. Apparently, found unresponsive by his girlfriend, and last known well was 24 hours prior. Patient was intubated by EMS on arrival and triaged to [facility]. Initial presentation was consistent with DKA. Subsequently, the patient was transferred to [facility]. Patient is currently in trauma bay 1, he is intubated mechanical ventilator. Chest x-ray on arrival to our facility shows the endotracheal tube in satisfactory position approximately 4 cm above the mahesh. There is an orogastric tube that should be advanced. Right IJ central line catheter appears to terminate at the Cavo atrial junction. No focal infiltrates or evidence of pneumonia. Current ventilator settings are assist-control, respiratory rate 14, tidal volume 500, FiO2 35%, PEEP of 5. He is breathing slightly above set rate. Not on any sedation. Remains unresponsive even to deep painful stimuli. CT of the brain did not show any acute intracranial hemorrhage or mass effect. ABG is consistent with profound metabolic acidosis, with a PaO2 of 204, pCO2 of 25, pH of 7.04. Patient has been given a total of 2 A of bicarb. He is hypotensive and in a shock state, he has been fluid resuscitated with at least 2.5 L crystalloid fluid. No insulin infusion is currently ordered. He remains profoundly hypotensive, and has been started on norepinephrine which is currently infusing at 0.06 mcg/kg/min. CBC: WBC count 8.8, hemoglobin 14.5, hematocrit 50.3, platelets 136. CMP: Sodium 143, potassium 5.2, chloride 115, serum bicarb less than 5, anion gap unmeasurable, BUN 134, creatinine 4.29, gluc ose 910. Lactic 1.1. LFTs not elevated. Total bilirubin 0.7. Ammonia less than 9. CPK was 882. Troponin 0.084. NT BNP 2720. EKG shows normal sinus rhythm and is nondiagnostic for acute ischemia. Urinalysis positive for glucose and ketones. Urine toxicology screen at outside facility was essentially negative. Serum alcohol less than 10. Patient will be admitted to the intensive care unit once bed available. 09/09/2023 Patient grimaces to pain but does not follow commands. He remains off sedatives. Suspect to be hypoxic encephalopathy. Neurolgy was consulted and advises mentation is likely due to metabolic injury. CT scan of the brain yesterday that showed no midline shift or swelling. Patient anion gap has closed with an anion gap of 6, bicarb 17. Potassium at 3.3. Replacement ongoing per protocol. Blood sugars 879. Insulin IV will be discontinued and will transiotion to Insulin detemir SQ. Patient began to show increased breathing on the mechanical ventilator and was switched to pressure control rate of 20, tidal volume of 500, FiO2 of 35%, and a PEEP of 5. ABG showed pH of 7.4 with a pCO2 of 29 and pO2 of 103. WBC is at 5 with a hemoglobin of 12 and a platelet count of 62. Heparin SQ discontinued. Chest x-ray show atelectatic changes in lung base bilaterally. Sputum is showing 09/09 Patient still encephaolpathic but now opens eyes to command, moves arms independently, only grimaces to pain. Patient still intubated and comfortable on current vent settings. Still not on any sedation. Potassium replacement on going as per protocol but on the uptrend latest at 3.5 . Glucose at the 211 and sustaining at levels of 200s. On Glucerna 1.5 rate at 30cc/hr via enteral feeding. Insulin increased to 25 units and on sliding scale coverage. Sputum culture grew gram-negative bacillus and presumptive Staph aureus. started on IV Cefepime. WBC 4.7, hemoglobin 11.4, hematocrit 35 and platelet count 49. Blood pressures increase at 140-160/60-80. Started on IV hydralazine 10mg PRN. Afebrile on assessment. Sodium elevated trend at 152. 0.45% normal saline discontinued and start on free water through OG tube. 09/10. Patient seen and examined. Continues to be intubated at the bedside, all questions answered 09/11. Patient seen and examined. Patient extubated this morning, following commands, currently on oxygen via nasal cannula 09/12. Patient seen and examined. Labs done this morning showed WBC 7.6, hemoglobin 10.8, platelet count 90, sodium 149, potassium 3.6, BUN 36, creatinine 1.06. Patient getting chest PT 09/13. Patient seen and examined. Currently on thickened liquid diet. Speech evaluation pending. Decrease fluids. 09/15/2023 telemetry sinus rhythm. Continues on amiodarone, Farxiga. Anticoagulated on Eliquis. Confused this morning, alert and oriented to person, knows he is in the hospital but thinks he is in [place], [place]. Maintaining O2 sat of 94% on 2 L nasal cannula on cefepime and nebulized bronchodilators. Choking on applesauce during speech therapy's evaluation, modified barium swallow ordered. Blood sugars in the low 200s during the night, better controlled this morning, 132. Hemoglobin A1c 11.9. 09/16/2023 MBS results noted-speech therapy recommending ground meats, nectar liquids, no straw, liquids from cup, small bites and sips with direct supervision , sitting upright 90 degrees and ongoing speech therapy. O2 sats improved, 97% on 2 L nasal cannula. Maintained on cefepime as per ID, afebrile, normal WBC. Hemoglobin 10, platelets 146. Potassium 2.9-supplementation and magnesium level ordered. Blood sugars better controlled. Renal function stable. Telemetry sinus rhythm. PT pending. 09/17/2023 Maintained on cefepime.yesterday Ochoa catheter discontinued but patient developed urinary retention and Ochoa catheter reinserted .ongoing lower back and rectal pain. lumbar CT reported no evidence for spinal fracture, moderate degeneration changes without evidence for significant spinal canal stenosis, moderate bilateral L5-S1 and L4-L5 neuroforaminal stenosis, bilateral lung consolidation possibly representing atelectasis with superimposed infection not excluded, trace right pleural effusion. Pelvis CT reporting circumferential wall thickening of the rectum/sigmoid colon , prominent mesenteric lymph nodes around the rectum also present direct visualization recommended to rule out mass, colonic diverticulosis, fat-containing right inguinal hernia, no evidence of fracture, mild to moderate bilateral hip osteoarthrosis and moderate degenerative changes of the spine. Vague historian, unsure of last colonoscopy. Denies nausea vomiting. Potassium 3.5-supplemented, renal function stable. 09/18/2023 continues to complain of back and rectal pain. Eliquis remains on hold, general surgery discussing colonoscopy for tomorrow. Renal function stable, Hemoglobin 10.2, platelets 193. Blood sugars controlled. 09/19/2023 Eliquis remains on hold. Patient initially was scheduled for colon oscopy today. patient developed increased difficulty swallowing, bowel prep and colonoscopy canceled by general surgery. General surgery scheduled patient for PEG tube placement for Friday. oxygen requirement increased from 2 to 6 L nasal cannula. Spotcheck reported O2 sat of 93% on 6 L nasal cannula. Chest x-ray from last night reported right lower lobe infiltrate, minimal right pleural effusion. As the morning progressed, respiratory status declined, BiPAP and ABGs ordered. Upon entering the room to apply BiPAP, patient unresponsive and A team called, intubated and transferred to ICU. 09/19. Patient seen and examined. Dr. Rodriguez took over care from Dr. Kwok. Patient currently intubated and sedated. REVIEW OF SYSTEMS: Intubated review of system cannot be obtained PHYSICAL EXAMINATION: GENERAL: The patient is intubated HEENT: Pupils are round and equally reacting to light. EOMI. No scleral icterus. No conjunctival pallor. Normocephalic, atraumatic. No pharyngeal erythema. No thyromegaly. CARDIOVASCULAR: S1 and S2 present. No murmurs, rubs, or gallops. PULMONARY: Chest is clear to auscultation, no wheezing or crackles. ABDOMEN: Soft, nontender, nondistended, normoactive bowel sounds. No palpable organomegaly. MUSCULOSKELETAL: No joint swelling or deformity. EXTREMITIES: No cyanosis, clubbing, or pedal edema. NEUROLOGICAL: Intubated and sedated SKIN: No rashes. Assessment and plan Acute hypoxic and hypercapnic respiratory failure, status post reintubation on . Suspect aspiration Acute DKA, anion gap closed , resolved Severe anion gap metabolic acidosis secondary to the above, status post bicarb drip. Hypotensive ,hypovolemic shock, status post pressor dependent, resolved Acute hypoxic respiratory failure, status post mechanical ventilator dependent. Acute left lower lobe pneumonia as per pulmonary, sputum culture, polymicrobial, reporting E. coli, Staphylococcus aureus-MSSA, strep agalactiae group B. Dysphagia, delayed swallowing, MBS completed-speech recommending dysphagia level 2 diet, one-to-one supervision, aspiration precautions Rectal pain, wall thickening of the rectum/sigmoid colon reported per CT Fat-containing right inguinal hernia reported per CT Hyperchloremic hypernatremia, resolved. Thrombocytopenia Paroxysmal atrial fibrillation Sepsis, secondary to all the above, resolved. Acute metabolic encephalopathy secondary to all the above, suspect anoxic. Brain CT did not report any acute abnormalities, EEG reported slowing suggestive of severe encephalopathy likely due to toxic metabolic derangement. Acute rhabdomyolysis Acute renal failure, improving Elevated troponin, multifactorial secondary to all the above, ACS ruled out,Type II [place] as per cardiology. Severe dehydration Diabetes mellitus type 2, hemoglobin A1c 11.9 CAD, history of [place], stent History of seizure disorder, on Keppra Stage I pressure ulcer, 1 cm near rectum Fungal rash, anterior scrotum Hypokalemia Plan: Monitor vital sign Monitor CBC Monitor CMP Continue vent management per ICU aggressive bronchopulmonary hygiene Continue chest physical therapy Continue IV fluids continue IV Zosyn and Flagyl Monitor blood sugar levels, continue current insulin regimen Critical care following ID following Labs and medication were reviewed.. Continue same treatment. Continue with symptomatic treatment. Resume home medication. Monitor labs and vitals. DVT and GI prophylaxis. Further recommendations as per clinical course of the patient Dictation was produced using [employer] dictation software. please excuse any grammatical, word or spelling errors. Objective - Vital Signs Vital signs: Vital Signs Temp 99.9 F H 09/20/23 12:00 Pulse 85 09/20/23 12:30 Resp 24 09/20/23 12:30 BP 118/63 09/20/23 12:30 Pulse Ox 98 09/20/23 12:30 FiO2 50 09/20/23 12:00 Intake & Output 09/19/23 09/20/23 09/20/23 18:59 06:59 18:59 Intake Total 2271.487 2636.237 2685.280 Output Total 930 140 30 Balance 7626.108 8435.237 2655.280 Weight 96.8 kg Intake: IV 2200 2374 233 0.9 sodium chloride 2200 1150 200 ACETAMINOPHEN IV (For NPO 100 ) 1,000 mg In Empty Bag 1 bag @ 400 mls/hr IVPB ONCE [facility] Rx#:[id number] Piperacillin-Tazobactam 3 100 .375 gm In Sodium Chloride 0.9% 100 ml @ 25 mls/hr IVPB Q8HR [facility] Rx# :[id number] Pressure Bag 24 33 Sodium Chloride 0.9% 1, 1000 000 ml @ 999 mls/hr IV . Q1H1M [facility] Rx#:[id number] Intake, IV Titration 71.487 522.753 9616.280 Amount Norepinephrine 4 mg In 93.122 164.918 Sodium Chloride 0.9% 250 ml @ 0.03 MCG/KG/MIN 11. 064 mls/hr IV .[id number] [facility] Rx#:[id number] Sodium Chloride 0.9% 1, 2000 000 ml @ 999 mls/hr IV . Q1H1M [facility] Rx#:[id number] propofoL 1,000 mg In 71.487 169.115 87.362 Empty Bag 1 bag @ 15 MCG/ KG/MIN 8.712 mls/hr IV . [id number] [facility] Rx#:[id number] Tube Feeding 90 Other 110 Output: Urine 930 140 30 Other: Voiding Method Indwelling Catheter Indwelling Catheter Indwelling Catheter # Bowel Movements 1 ABP, PAP, CO, CI - Last Documented Arterial Blood Pressure 119/40 - Labs CBC & Chem 7: 09/20/23 04:50 09/20/23 04:50 Labs: Abnormal Lab Results - Last 24 Hours (Table) 09/19/23 09/19/23 09/19/23 Range/Units 15:30 17:46 23:42 WBC (3.8-10.6) k/uL RBC (4.30-5.90) m/uL Hgb (13.0-17.5) gm/dL Hct (39.0-53.0) % MCHC (31.0-37.0) g/dL ABG pH (7.35-7.45) ABG pCO2 (35-45) mmHg ABG O2 Saturation (94-97) % Chloride (98-107) mmol/L BUN (9-20) mg/dL Creatinine (0.66-1.25) mg/dL Glucose (74-99) mg/dL POC Glucose (mg/dL) 121 H 129 H (70-110) mg/dL Calcium (8.4-10.2) mg/dL Total Protein (6.3-8.2) g/dL Albumin (3.5-5.0) g/dL Fluid Appearance Cloudy A (Clear) 09/20/23 09/20/23 09/20/23 Range/Units 04:50 04:50 05:06 WBC 13.0 H (3.8-10.6) k/uL RBC 3.17 L (4.30-5.90) m/uL Hgb 9.3 L D (13.0-17.5) gm/dL Hct 30.8 L (39.0-53.0) % MCHC 30.3 L (31.0-37.0) g/dL ABG pH 7.30 L (7.35-7.45) ABG pCO2 47 H (35-45) mmHg ABG O2 Saturation 97.1 H (94-97) % Chloride 117 H (98-107) mmol/L BUN 29 H (9-20) mg/dL Creatinine 1.45 H (0.66-1.25) mg/dL Glucose 152 H (74-99) mg/dL POC Glucose (mg/dL) (70-110) mg/dL Calcium 8.2 L (8.4-10.2) mg/dL Total Protein 4.4 L (6.3-8.2) g/dL Albumin 1.9 L (3.5-5.0) g/dL Fluid Appearance (Clear) 09/20/23 09/20/23 Range/Units 06:21 11:55 WBC (3.8-10.6) k/uL RBC (4.30-5.90) m/uL Hgb (13.0-17.5) gm/dL Hct (39.0-53.0) % MCHC (31.0-37.0) g/dL ABG pH (7.35-7.45) ABG pCO2 (35-45) mmHg ABG O2 Saturation (94-97) % Chloride (98-107) mmol/L BUN (9-20) mg/dL Creatinine (0.66-1.25) mg/dL Glucose (74-99) mg/dL POC Glucose (mg/dL) 176 H 118 H (70-110) mg/dL Calcium (8.4-10.2) mg/dL Total Protein (6.3-8.2) g/dL Albumin (3.5-5.0) g/dL Fluid Appearance (Clear) Microbiology - Last 24 Hours (Table) 09/19/23 15:30 Gram Stain - Preliminary Bronchial Washings - Random
[2023-09-20] MEDS: FUROSEMIDE 10 MG/ML 4 ML VIAL IV STA (13:50)
--- NOTE | 2023-09-20 14:11 | P.PN ---
Progress Note - Text Progress Note Date: 09/20/23 CHIEF COMPLAINT: rectal pain HISTORY OF PRESENT ILLNESS: NAEO PHYSICAL EXAM: VITAL SIGNS: Reviewed GENERAL: no acute distress. Intubated HEENT: No sclera icterus. Moist buccal mucosa. NECK: Supple without lymphadenopathy. CHEST: Non-labored respirations and equal bilateral excursions. CARDIOVASCULAR: Palpable 2+ radial pulses. ABDOMEN: Soft. Nondistended. MUSCULOSKELETAL: No clubbing or cyanosis. NEUROLOGIC: Intubated and sedated SKIN: Well perfused. Good skin turgor. ASSESSMENT: 1. Rectal pain. Concerns for possible rectal mass. CT pelvis reporting wall thickening of the rectum/sigmoid colon 2. Fat-containing right inguinal hernia noted on CT 3. Acute diabetic ketoacidosis on admission 4. Acute respiratory failure with pneumonia 5. Acute rhabdomyolysis 6. Metabolic encephalopathy 7. Acute kidney injury 8. Acute rhabdomyolysis 9. Coronary disease with cardiac stent history 10. History of EF of 40 to 45% 11. History of Afib 12. Dysphagia PLAN: -Colonoscopy canceled and on hold -PEG tube placement currently on hold -Continue ICU management -Continue supportive care
--- NOTE | 2023-09-20 14:41 | P.PN ---
Subjective Progress Note Date: 09/19/23 Principal diagnosis: Reason for follow-up is fever Patient is a 67-year-old male with a past medical history significant for coronary disease diabetes mellitus [place] seizure disorder history of diabetic foot infection status post bilateral big toe amputation presenting to the hospital with unresponsiveness patient was initially hypothermic subsequently started spiking fever initial workup with a chest x-ray and urine was negative. On today's evaluation that is 09/19/2023, patient had worsening of his respiratory status the patient was less responsive 80 was called and the patient be transferred to ICU patient got intubated did have some mucus secretion aspirated time of intubation but no food, patient requiring low-dose pressor support no other changes reported by the nursing staff. Patient white count is 9.9 creatinine 0.7 Objective - Vital Signs Vital signs: Vital Signs Temp 98.0 F 09/19/23 09:08 Pulse 100 09/19/23 11:45 Resp 20 09/19/23 09:08 BP 145/79 09/19/23 09:08 Pulse Ox 93 L 09/19/23 09:08 FiO2 100 09/19/23 12:35 Intake & Output 09/18/23 09/19/23 09/19/23 18:59 06:59 18:59 Intake Total 354 Output Total 950 4400 600 Balance -596 -4400 -600 Weight 96.8 kg Intake: Oral 354 Output: Urine 950 4400 600 Other: Voiding Method Indwelling Catheter Indwelling Catheter Indwelling Catheter ABP, PAP, CO, CI - Last Documented Arterial Blood Pressure 121/60 - Exam GENERAL DESCRIPTION: An elderly male intubated on the vent RESPIRATORY SYSTEM: Unlabored breathing , decreased breath sounds at bases HEART: S1 S2 regular rate and rhythm , ABDOMEN: Soft , no tenderness EXTREMITIES: No edema feet - Labs CBC & Chem 7: 09/20/23 04:50 09/20/23 04:50 Labs: Abnormal Lab Results - Last 24 Hours (Table) 09/18/23 09/18/23 09/19/23 Range/Units 16:21 20:02 06:15 RBC (4.30-5.90) m/uL Hgb (13.0-17.5) gm/dL Hct (39.0-53.0) % MCHC (31.0-37.0) g/dL Neutrophils # (1.3-7.7) k/uL Lymphocytes # (1.0-4.8) k/uL ABG pH (7.35-7.45) ABG pCO2 (35-45) mmHg ABG pO2 (83-108) mmHg ABG HCO3 (21-25) mmol/L ABG Total CO2 (19-24) mmol/L Chloride (98-107) mmol/L Glucose (74-99) mg/dL POC Glucose (mg/dL) 172 H 241 H 158 H (70-110) mg/dL Calcium (8.4-10.2) mg/dL 09/19/23 09/19/23 09/19/23 Range/Units 07:05 07:05 11:22 RBC 3.85 L (4.30-5.90) m/uL Hgb 11.3 L (13.0-17.5) gm/dL Hct 37.1 L (39.0-53.0) % MCHC 30.5 L (31.0-37.0) g/dL Neutrophils # 8.7 H (1.3-7.7) k/uL Lymphocytes # 0.5 L (1.0-4.8) k/uL ABG pH (7.35-7.45) ABG pCO2 (35-45) mmHg ABG pO2 (83-108) mmHg ABG HCO3 (21-25) mmol/L ABG Total CO2 (19-24) mmol/L Chloride 112 H (98-107) mmol/L Glucose 151 H (74-99) mg/dL POC Glucose (mg/dL) 179 H (70-110) mg/dL Calcium 8.3 L (8.4-10.2) mg/dL 09/19/23 09/19/23 09/19/23 Range/Units 11:50 11:54 12:19 RBC (4.30-5.90) m/uL Hgb (13.0-17.5) gm/dL Hct (39.0-53.0) % MCHC (31.0-37.0) g/dL Neutrophils # (1.3-7.7) k/uL Lymphocytes # (1.0-4.8) k/uL ABG pH 7.24 L (7.35-7.45) ABG pCO2 64 H (35-45) mmHg ABG pO2 78 L (83-108) mmHg ABG HCO3 27 H (21-25) mmol/L ABG Total CO2 29 H (19-24) mmol/L Chloride (98-107) mmol/L Glucose (74-99) mg/dL POC Glucose (mg/dL) 162 H 144 H (70-110) mg/dL Calcium (8.4-10.2) mg/dL Assessment and Plan (1) Fever Current Visit: Yes Status: Acute Code(s): R50.9 - FEVER, UNSPECIFIED SNOMED Code(s): 452437849 (2) Pneumonia Current Visit: Yes Status: Acute Code(s): J18.9 - PNEUMONIA, UNSPECIFIED ORGANISM SNOMED Code(s): 798254313 (3) Diarrhea Current Visit: Yes Status: Acute Code(s): R19.7 - DIARRHEA, UNSPECIFIED SNOMED Code(s): 89562045 Plan: 1patient with an episode of less responsiveness and concern for possible aspiration but the patient has been transferred back to the ICU patient is status post bronchoscopy and cultures are currently pending. 2we will discontinue cefepime. 3we will start the patient on Zosyn 3.375 g 8 hours while waiting for the culture to finalize Dictation was produced using [employer] dictation software. please excuse any gram matical, word or spelling errors. Time with Patient: Less than 30
--- NOTE | 2023-09-20 14:43 | P.PN ---
Subjective Progress Note Date: 09/20/23 Principal diagnosis: Reason for follow-up is fever Patient is a 67-year-old male with a past medical history significant for coronary disease diabetes mellitus [place] seizure disorder history of diabetic foot infection status post bilateral big toe amputation presenting to the hospital with unresponsiveness patient was initially hypothermic subsequently started spiking fever initial workup with a chest x-ray and urine was negative. On today's evaluation that is 09/20/2023, patient did have a low-grade fever of 100.5 last night temperature of 101 F this morning patient remains to be debated on the vent FiO2 is currently down to 50% no significant purulent secretion through the ET patient is requiring less pressor support no other changes reported by nursing staff. Patient white count slightly up to 13,000, creatinine is 1.45 Objective - Vital Signs Vital signs: Vital Signs Temp 99.9 F H 09/20/23 12:00 Pulse 85 09/20/23 12:30 Resp 24 09/20/23 12:30 BP 118/63 09/20/23 12:30 Pulse Ox 98 09/20/23 12:30 FiO2 50 09/20/23 12:00 Intake & Output 09/19/23 09/20/23 09/20/23 18:59 06:59 18:59 Intake Total 2271.487 2636.237 2685.280 Output Total 930 140 30 Balance 2119.048 1553.237 2655.280 Weight 96.8 kg Intake: IV 2200 2374 233 0.9 sodium chloride 2200 1150 200 ACETAMINOPHEN IV (For NPO 100 ) 1,000 mg In Empty Bag 1 bag @ 400 mls/hr IVPB ONCE ONE Rx#:[id number] Piperacillin-Tazobactam 3 100 .375 gm In Sodium Chloride 0.9% 100 ml @ 25 mls/hr IVPB Q8HR [facility] Rx# :[id number] Pressure Bag 24 33 Sodium Chloride 0.9% 1, 1000 000 ml @ 999 mls/hr IV . Q1H1M ONE Rx#:[id number] Intake, IV Titration 71.487 998.731 0571.280 Amount Norepinephrine 4 mg In 93.122 164.918 Sodium Chloride 0.9% 250 ml @ 0.03 MCG/KG/MIN 11. 064 mls/hr IV .[id number] [facility] Rx#:[id number] Sodium Chloride 0.9% 1, 2000 000 ml @ 999 mls/hr IV . Q1H1M ONE Rx#:[id number] propofoL 1,000 mg In 71.487 169.115 87.362 Empty Bag 1 bag @ 15 MCG/ KG/MIN 8.712 mls/hr IV . [id number] [facility] Rx#:[id number] Tube Feeding 90 Other 110 Output: Urine 930 140 30 Other: Voiding Method Indwelling Catheter Indwelling Catheter Indwelling Catheter # Bowel Movements 1 ABP, PAP, CO, CI - Last Documented Arterial Blood Pressure 119/40 - Exam GENERAL DESCRIPTION: An elderly male intubated on the vent RESPIRATORY SYSTEM: Unlabored breathing , decreased breath sounds at bases HEART: S1 S2 regular rate and rhythm , ABDOMEN: Soft , no tenderness EXTREMITIES: No edema feet - Labs CBC & Chem 7: 09/20/23 04:50 09/20/23 04:50 Labs: Abnormal Lab Results - Last 24 Hours (Table) 09/19/23 09/19/23 09/19/23 Range/Units 15:30 17:46 23:42 WBC (3.8-10.6) k/uL RBC (4.30-5.90) m/uL Hgb (13.0-17.5) gm/dL Hct (39.0-53.0) % MCHC (31.0-37.0) g/dL ABG pH (7.35-7.45) ABG pCO2 (35-45) mmHg ABG O2 Saturation (94-97) % Chloride (98-107) mmol/L BUN (9-20) mg/dL Creatinine (0.66-1.25) mg/dL Glucose (74-99) mg/dL POC Glucose (mg/dL) 121 H 129 H (70-110) mg/dL Calcium (8.4-10.2) mg/dL Total Protein (6.3-8.2) g/dL Albumin (3.5-5.0) g/dL Fluid Appearance Cloudy A (Clear) 09/20/23 09/20/23 09/20/23 Range/Units 04:50 04:50 05:06 WBC 13.0 H (3.8-10.6) k/uL RBC 3.17 L (4.30-5.90) m/uL Hgb 9.3 L D (13.0-17.5) gm/dL Hct 30.8 L (39.0-53.0) % MCHC 30.3 L (31.0-37.0) g/dL ABG pH 7.30 L (7.35-7.45) ABG pCO2 47 H (35-45) mmHg ABG O2 Saturation 97.1 H (94-97) % Chloride 117 H (98-107) mmol/L BUN 29 H (9-20) mg/dL Creatinine 1.45 H (0.66-1.25) mg/dL Glucose 152 H (74-99) mg/dL POC Glucose (mg/dL) (70-110) mg/dL Calcium 8.2 L (8.4-10.2) mg/dL Total Protein 4.4 L (6.3-8.2) g/dL Albumin 1.9 L (3.5-5.0) g/dL Fluid Appearance (Clear) 09/20/23 09/20/23 Range/Units 06:21 11:55 WBC (3.8-10.6) k/uL RBC (4.30-5.90) m/uL Hgb (13.0-17.5) gm/dL Hct (39.0-53.0) % MCHC (31.0-37.0) g/dL ABG pH (7.35-7.45) ABG pCO2 (35-45) mmHg ABG O2 Saturation (94-97) % Chloride (98-107) mmol/L BUN (9-20) mg/dL Creatinine (0.66-1.25) mg/dL Glucose (74-99) mg/dL POC Glucose (mg/dL) 176 H 118 H (70-110) mg/dL Calcium (8.4-10.2) mg/dL Total Protein (6.3-8.2) g/dL Albumin (3.5-5.0) g/dL Fluid Appearance (Clear) Microbiology - Last 24 Hours (Table) 09/19/23 15:30 Gram Stain - Preliminary Bronchial Washings - Random Assessment and Plan (1) Fever Current Visit: Yes Status: Acute Code(s): R50.9 - FEVER, UNSPECIFIED SNOMED Code(s): 092128137 (2) Pneumonia Current Visit: Yes Status: Acute Code(s): J18.9 - PNEUMONIA, UNSPECIFIED ORGANISM SNOMED Code(s): 264474194 (3) Diarrhea Current Visit: Yes Status: Acute Code(s): R19.7 - DIARRHEA, UNSPECIFIED SNOMED Code(s): 95589478 Plan: 1patient with an episode of less responsiveness and concern for possible aspiration but the patient has been transferred back to the ICU patient is status post bronchoscopy and cultures are currently pending. 2patient did have a new fever this morning we will obtain blood cultures 3will continue with Zosyn 3.375 g 8 hours while waiting for the culture to finalize Dictation was produced using [employer] dictation software. please excuse any grammatical, word or spelling errors.
[2023-09-20] MEDS: SODIUM CHLORIDE 0.9% 1,000 ML IV SCH (15:16)
[2023-09-20 18:24] LABS: Glucose,Whole Blood 166 mg/dL (70-110)
[2023-09-20 23:36] LABS: Glucose,Whole Blood 188 mg/dL (70-110)
[2023-09-21 00:35] LABS: Glucose,Whole Blood 168 mg/dL (70-110)
[2023-09-21 05:12] LABS: Basophils % (A) 0 %; Eosinophils # (A) 0.1 k/uL (0-0.7); Eosinophils % (A) 1 %; HCT 28.4 % (39.0-53.0); HGB 8.7 gm/dL (13.0-17.5); Hypochromasia Marked; Lymphocytes # (A) 0.8 k/uL (1.0-4.8); Lymphocytes % (A) 8 %; MCHC 30.5 g/dL (31.0-37.0); MCV 98.5 fL (80.0-100.0); Mean Platelet Volume 9.8; Monocytes # (A) 0.4 k/uL (0-1.0); Monocytes % (A) 4 %; Neutrophils # (A) 8.3 k/uL (1.3-7.7); Neutrophils % (A) 86 %; Platelet Count 197 k/uL (150-450); RBC 2.88 m/uL (4.30-5.90); RDW 13.6 % (11.5-15.5); WBC 9.7 k/uL (3.8-10.6)
[2023-09-21 05:17] LABS: African American GFR (CKD) 32 (>60 ml/min/1.73 sqM); Anion Gap 9 mmol/L; Blood Urea Nitrogen 39 mg/dL (9-20); Calcium 7.5 mg/dL (8.4-10.2); Carbon Dioxide 17 mmol/L (22-30); Chloride 118 mmol/L (98-107); Glucose 191 mg/dL (74-99); Non-African American GFR(CKD) 28 (>60 ml/min/1.73 sqM); Potassium 4.6 mmol/L (3.5-5.1); Sodium 144 mmol/L (137-145)
[2023-09-21 05:32] LABS: Glucose,Whole Blood 206 mg/dL (70-110)
[2023-09-21 05:37] LABS: ABG Base Excess -7.3 mmol/L; ABG HCO3 19 mmol/L (21-25); ABG Oxygen Saturation 95.5 % (94-97); ABG PCO2 43 mmHg (35-45); ABG PH 7.26 (7.35-7.45); ABG PO2 79 mmHg (83-108); ABG TCO2 21 mmol/L (19-24)
[2023-09-21 05:48] LABS: Allen Test Performed? no
--- NOTE | 2023-09-21 07:57 | XR ---
EXAMINATION TYPE: XR chest 1V portable DATE OF EXAM: 09/21/2023 COMPARISON: 09/20/2023 HISTORY: SOB, Follow Up FINDINGS: Indwelling tubes and catheters are unchanged. No change in bibasilar opacities. Stable appearance of the cardio-mediastinal structures at this time. Pleural effusion unchanged. IMPRESSION: 1. Stable portable chest. Clinical correlation and follow up until resolution is recommended.
[2023-09-21] MEDS: SODIUM CHLORIDE 0.9% 1,000 ML IV ONE (09:11)
[2023-09-21] MEDS: SODIUM BICARBONATE TAB 650 MG TAB PO SCH (09:16)
[2023-09-21] MEDS: SODIUM BICARB 8.4% 50 ML SYR (1 MEQ/ML) IV STA (09:16)
--- NOTE | 2023-09-21 10:58 | P.NPCON ---
History of Present Illness - Reason for Consult acute renal failure - History of Present Illness Reason for consultation: Acute kidney injury History of present illness: Patient is a 67-year-old male seen in renal consultation for acute kidney injury. Patient initially presented to the hospital on September 07, 2023 from another facility. Patient was found unresponsive and was noted to be in DKA. Patient was intubated. Patient was treated for DKA and renal function improved with creatinine down to as low as 0.69 dated September 18, 2023. Patient was extubated and transferred out of the ICU. However 2 days ago patient went into respiratory distress and was subsequently intubated. Patient has received about 6 L of IV fluids over the last couple of days and is receiving another liter of normal saline now. He also received a dose of IV Lasix yesterday with minimal response in urine output. He is also maintained on Farxiga. Patient is also on Levophed. Creatinine is up to 2.37. Patient was noted to be quite hypotensive with systolic blood pressure in the 70s to 80s and subsequently Levophed was added. Vital signs are stable. On Levophed. General: Resting in bed. HEENT: Intubated. LUNGS: Scattered rhonchi. HEART: Rate and Rhythm are regular. ABDOMEN: No distention. EXTREMITITES: No edema. Past Medical History Past Medical History: Coronary Artery Disease (CAD), Diabetes Mellitus, Myocardial Infarction (CT), Seizure Disorder Last Myocardial Infarction Date:: unknown History of Any Multi-Drug Resistant Organisms: Unobtainable Past Surgical History: Heart Catheterization With Stent Additional Past Surgical History / Comment(s): shyla big toe removal Date of Last Stent Placement:: unknown Past Psychological History: Unable to Obtain Smoking Status: Never smoker Past Alcohol Use History: None Reported Past Drug Use History: None Reported Medications and Allergies Home Medications Medication Instructions Recorded Confirmed Type Ascorbic Acid [Vitamin C] 500 mg PO BID 09/08/23 09/08/23 History Atorvastatin [Lipitor] 40 mg PO HS 09/08/23 09/08/23 History Cetirizine HCl [Zyrtec] 10 mg PO HS 09/08/23 09/08/23 History Cholecalciferol (Vitamin D3) 1,250 mcg PO WEEKLY 09/08/23 09/08/23 History [Vitamin D3 (1250 Mcg = 50,000 Iu)] Escitalopram [Lexapro] 10 mg PO DAILY 09/08/23 09/08/23 History Furosemide [Lasix] 20 mg PO DAILY 09/08/23 09/08/23 History Potassium Chloride [Klor-Con M10] 10 meq PO DAILY 09/08/23 09/08/23 History levETIRAcetam [Keppra] 500 mg PO Q12HR 09/08/23 09/08/23 History tiZANidine [Zanaflex] 4 mg PO TID 09/08/23 09/08/23 History Amiodarone [Cordarone] 400 mg PO BID tab 09/17/23 Rx Apixaban [Eliquis] 5 mg PO BID tab 09/17/23 Rx Aspirin 81 mg PO DAILY tab 09/17/23 Rx Cholestyramine (with Sugar) 4 gm PO BID@1000,1800 packet 09/17/23 Rx [Questran Packet] Dapagliflozin Propanediol [Farxiga] 10 mg PO DAILY tab 09/17/23 Rx HYDROcodone/APAP 5-325MG [[place] 1 each PO Q6H PRN #12 tab 09/17/23 Rx 5-325] INSULIN LISPRO (HumaLOG) [humaLOG] 0 unit SQ ACHS #10 ml 09/17/23 Rx Insulin Detemir (Levemir) [Levemir] 15 unit SQ HS each 09/17/23 Rx Ipratropium-Albuterol Nebulize 3 ml INHALATION RT-QID each 09/17/23 Rx [Duoneb 0.5 mg-3 mg/3 ml Soln] Losartan [Cozaar] 25 mg PO DAILY tab 09/17/23 Rx Metoprolol Tartrate [Lopressor] 25 mg PO BID tab 09/17/23 Rx Nystatin 100,000 Unit/gm Oint 1 applic TOPICAL BID each 09/17/23 Rx [Mycostatin Oint] Allergies Allergy/AdvReac Type Severity Reaction Status Date / Time No Known Allergies Allergy Verified 09/08/23 10:10 Physical Exam Vitals: Vital Signs Temp Pulse Pulse Resp BP Pulse Ox FiO2 09/21/23 10:00 67 24 113/57 98 50 09/21/23 09:45 69 24 113/57 97 50 09/21/23 09:30 67 24 114/56 97 50 09/21/23 09:15 68 24 114/56 96 50 09/21/23 09:00 69 24 102/52 97 50 09/21/23 08:45 69 24 102/52 96 50 09/21/23 08:30 71 24 123/62 96 50 09/21/23 08:15 72 24 123/62 96 50 09/21/23 08:00 98.1 F 70 25 H 109/56 98 50 09/21/23 07:55 71 09/21/23 07:45 69 24 109/56 97 50 09/21/23 07:30 70 24 120/57 98 50 09/21/23 07:15 69 24 120/57 98 50 09/21/23 07:00 70 24 123/59 98 09/21/23 06:30 69 24 125/84 97 09/21/23 06:00 69 24 120/61 97 09/21/23 05:30 70 26 H 127/64 98 09/21/23 05:00 99.1 F 71 24 127/64 98 09/21/23 04:30 71 24 117/59 97 09/21/23 04:00 71 71 24 114/58 96 50 09/21/23 03:30 72 25 H 127/62 96 09/21/23 03:14 50 09/21/23 03:00 71 24 131/62 95 09/21/23 02:30 72 24 116/61 94 L 09/21/23 02:00 71 25 H 130/60 94 L 09/21/23 01:30 73 24 123/61 96 09/21/23 01:00 72 24 124/61 96 09/21/23 00:30 73 24 120/59 96 09/21/23 00:00 98.9 F 71 76 24 117/60 96 50 09/20/23 23:30 73 24 118/58 96 09/20/23 23:26 74 25 H 118/58 95 09/20/23 23:00 74 23 123/60 95 50 09/20/23 22:30 77 25 H 115/57 94 L 09/20/23 22:00 72 25 H 92 L 09/20/23 21:30 74 25 H 95 09/20/23 21:00 74 24 115/58 95 09/20/23 20:30 76 24 121/60 95 09/20/23 20:00 98.8 F 76 76 24 114/58 96 50 09/20/23 19:59 77 09/20/23 19:48 74 50 09/20/23 19:30 75 24 112/58 96 09/20/23 19:00 76 24 116/60 96 09/20/23 18:30 76 24 114/58 96 09/20/23 18:00 77 24 116/58 96 09/20/23 17:30 78 24 118/58 96 09/20/23 17:00 77 24 117/58 94 L 09/20/23 16:30 78 24 114/59 94 L 09/20/23 16:18 78 09/20/23 16:08 78 09/20/23 16:02 50 09/20/23 16:00 99.9 F H 76 24 108/57 91 L 09/20/23 15:30 77 24 107/59 97 09/20/23 15:23 50 09/20/23 15:00 77 24 108/59 97 09/20/23 14:30 80 24 107/57 98 09/20/23 14:00 79 24 119/60 97 09/20/23 13:30 82 24 117/59 98 09/20/23 13:00 82 24 121/65 98 09/20/23 12:30 85 24 118/63 98 09/20/23 12:08 84 09/20/23 12:00 99.9 F H 81 24 124/64 97 50 09/20/23 11:56 84 09/20/23 11:44 50 09/20/23 11:30 82 24 99/58 97 09/20/23 11:00 92 24 97/57 96 Intake and Output 09/20/23 09/21/23 09/21/23 22:59 06:59 14:59 Intake Total 0319.792 5265.765 1755.944 Output Total 110 65 35 Balance 4013.545 0054.765 1720.944 Intake: IV 848 942 515 0.9 sodium chloride 800 700 400 Piperacillin-Tazobactam 3 100 .375 gm In Sodium Chloride 0.9% 100 ml @ 25 mls/hr IVPB Q8HR [facility] Rx# :[id number] Pressure Bag 48 42 15 metroNIDAZOLE-NS PMX 500 100 100 mg In Saline 1 100ml.bag @ 100 mls/hr IVPB Q8HR [facility] Rx#:[id number] Intake, IV Titration 383.609 436.366 6119.944 Amount Norepinephrine 4 mg In 124.669 166.765 23.972 Sodium Chloride 0.9% 250 ml @ 0.03 MCG/KG/MIN 11. 064 mls/hr IV .[id number] [facility] Rx#:[id number] Sodium Chloride 0.9% 1, 1000 000 ml @ 999 mls/hr IV . Q1H1M ONE Rx#:[id number] propofoL 1,000 mg In 258.940 100 136.972 Empty Bag 1 bag @ 15 MCG/ KG/MIN 8.712 mls/hr IV . [id number] [facility] Rx#:[id number] Tube Feeding 220 170 80 Other 60 30 Output: Urine 110 65 35 Other: Voiding Method Indwelling Catheter Indwelling Catheter Indwelling Catheter ABP, PAP, CO, CI - Last 8 Hours Arterial Blood Pressure 129/42 Arterial Blood Pressure 131/42 Arterial Blood Pressure 125/43 Arterial Blood Pressure 122/42 Arterial Blood Pressure 127/43 Arterial Blood Pressure 126/43 Arterial Blood Pressure 111/39 Arterial Blood Pressure 114/39 Arterial Blood Pressure 150/47 Arterial Blood Pressure 127/42 Arterial Blood Pressure 127/43 Arterial Blood Pressure 130/43 Arterial Blood Pressure 133/43 Arterial Blood Pressure 137/43 Arterial Blood Pressure 129/42 Arterial Blood Pressure 128/41 Arterial Blood Pressure 139/44 Arterial Blood Pressure 138/44 Arterial Blood Pressure 117/40 Arterial Blood Pressure 134/44 Arterial Blood Pressure 131/42 Results - Lab Results Most recent lab results ABG pH 7.26 (7.35-7.45) L 09/21/23 05:35 ABG pCO2 43 mmHg (35-45) 09/21/23 05:35 ABG pO2 79 mmHg (83-108) L 09/21/23 05:35 ABG HCO3 19 mmol/L (21-25) L 09/21/23 05:35 ABG O2 Saturation 95.5 % (94-97) 09/21/23 05:35 Calcium 7.5 mg/dL (8.4-10.2) L 09/21/23 04:50 Phosphorus 1.3 mg/dL (2.5-4.5) L 09/11/23 06:00 Magnesium 2.0 mg/dL (1.6-2.3) 09/19/23 07:05 09/21/23 04:50 09/21/23 04:50 Assessment and Plan Plan: Assessment: 1. Acute kidney injury secondary to ATN secondary to hypotension requiring vasopressor support. Baseline creatinine near 1 and is 2.37 today. Urine output 5 to 10 cc an hour. 2. Septic shock secondary to pneumonia on antibiotics. ID following. 3. Metabolic acidosis secondary to acute kidney injury and IV fluids. 4. Acute hypoxic respiratory failure secondary to pneumonia. Intubated. 5. DKA on presentation status post insulin drip. Plan: Maintain IV fluids. Oral bicarb added. Also scheduled to receive amp of bicarb IV push. Check renal ultrasound. 80 mg IV Lasix this afternoon if no improvement in urine output. Continue to assess daily for need for renal replacement therapy. Thank you for the consultation. I will continue to follow the patient with you during his hospital stay.
--- NOTE | 2023-09-21 11:46 | P.PN ---
Subjective Progress Note Date: 09/21/23 Principal diagnosis: Acute diabetic ketoacidosis and acute left lower lobe pneumonia with polymicrobial growth on the sputum Patient is a 67-year-old male with past medical history significant for diabetes mellitus, prior toe amputations, hyperlipidemia, coronary artery disease with previous stents, and seizure disorder. He is currently intubated to the mechanical ventilator, unresponsive without any sedation, unable to provide any information. Patient was transferred from [facility] late last night. Apparently, found unresponsive by his girlfriend, and last known well was 24 hours prior. Patient was intubated by EMS on arrival and triaged to [facility]. Initial presentation was consistent with DKA. Subsequently, the patient was transferred to [facility]. Patient is currently in trauma bay 1, he is intubated mechanical ventilator. Chest x-ray on arrival to our facility shows the endotracheal tube in satisfactory position approximately 4 cm above the mahesh. There is an orogastric tube that should be advanced. Right IJ central line catheter appears to terminate at the Cavo atrial junction. No focal infiltrates or evidence of pneumonia. Current ventilator settings are assist-control, respiratory rate 14, tidal volume 500, FiO2 35%, PEEP of 5. He is breathing slightly above set rate. Not on any sedation. Remains unresponsive even to deep painful stimuli. CT of the brain did not show any acute intracranial hemorrhage or mass effect. ABG is consistent with profound metabolic acidosis, with a PaO2 of 204, pCO2 of 25, pH of 7.04. Patient has been given a total of 2 A of bicarb. He is hypotensive and in a shock state, he has been fluid resuscitated with at least 2.5 L crystalloid fluid. No insulin infusion is currently ordered. He remains profoundly hypotensive, and has been started on norepinephrine which is currently infusing at 0.06 mcg/kg/min. CBC: WBC count 8.8, hemoglobin 14.5, hematocrit 50.3, platelets 136. CMP: Sodium 143, potassium 5.2, chloride 115, serum bicarb less than 5, anion gap unmeasurable, BUN 134, creatinine 4.29, glucose 910. Lactic 1.1. LFTs not elevated. Total bilirubin 0.7. Ammonia less than 9. CPK was 882. Troponin 0.084. NT BNP 2720. EKG shows normal sinus rhythm and is nondiagnostic for acute ischemia. Urinalysis positive for glucose and ketones. Urine toxicology screen at outside facility was essentially negative. Serum alcohol less than 10. Patient will be admitted to the intensive care unit once bed available. Today's evaluation of 09/09/2023, the patient is being seen for a follow-up. The patient remains off sedatives. He is grimacing to painful stimulation. He did have a CAT scan of the brain yesterday that showed no acute abnormalities. Suspect a component of hypoxic encephalopathy as the patient apparently was hypoxic when the patient was picked up by the EMS. At this point in time, the patient is grimacing only to deep painful stimulation. Not following any commands yet. The patient has recovered from his anion gap metabolic acidosis related to DKA. The patient is currently on half-normal saline at rate of 100 cc an hour. Most recent blood work shows a gap of 6 with a serum bicarb of 17. Sodium levels at 151. Potassium level at 3.3 which is being replaced. Blood sugars 879. The patient remains on insulin drip and the patient will be transition to long-acting insulin. Remains on the mechanical ventilator assist- control mode at rate of 20, tidal volume of 500, FiO2 of 35% with a PEEP of 5. Blood gas showed a pH of 7.4 with a pCO2 of 29 and pO2 of 103. The patient was tachypneic volume second mechanical ventilation the patient was switched to pressure control. CVP was 2 and after receiving a total of 3 L of fluid and the CVP came up to 8 and the patient has been off pressors since 11:30 PM yesterday. Cardiac rhythm is sinus. The patient is completing albuterol and loading and the patient is currently on 0.5 mg/min. Echocardiogram was done and patient has an ejection fraction of 40 to 45%. The white cell count today is at 5 with a hemoglobin of 12 and a platelet count of 62. Chest x-ray findings are stable. Some atelectatic changes in lung base bilaterally. No antibiotic coverage at this point in time. Sputum is showing gram-negative bacillus and presumptive Staph aureus. 09/10/2023, I am seeing the patient for a follow-up. The patient remains encephalopathic. He grimaces to painful stimulation in all 4 extremities and is withdrawing to pain. Nevertheless, does not follow any commands. His mobility is less in his lower extremities compared to the upper extremities. No seizure activity has been noted. CAT scan of the brain was negative. EEG showed moderate to severe encephalopathy. Suspect hypoxic encephalopathy. Meanwhile, the patient remains intubated on mechanical ventilator. On today's evaluation, he is on no sedation. He is on pressure control mode of mechanical ventilation at rate of 20, pressure control of 15, inspiratory time 0.9 with an FiO2 of 35% and a PEEP of 5. Blood gases from today showed a pH of 7.45 with a pCO2 of 25 and a pO2 of 97. Chest x-ray findings are stable and there is no significant interval change and there is no definite acute process. Based on the positive sputum culture, the patient was started on IV cefepime. Sputum sample was positive for a combination of bacteria including E. coli, Staph aureus/MSSA and Streptococcus. He is afebrile. Hemodynamically stable and he is on no pressors. In fact, he has developed some hypochloremic hyponatremia. He remains on half-normal saline at rate of 100 cc an hour. BUN 64 with a creatinine of 1.46 and a sodium level at 152 and a chloride level is 128. Potassium is at 3.5. WBC count is at 4.7 with a hemoglobin of 1.4 and a platelet count of 49. The patient's blood sugar is at 281. The patient remains on Levemir insulin which is at 15 units and the patient is also on sliding scale coverage. The patient is sitting enteral feeding for nutritional support and the patient is on Glucerna at a rate of 31 cc an hour. On 09/11/2023, the patient is being seen for a follow-up. Opening of his eyes. Not following commands consistently. Remains on mechanical ventilator. Currently is on a pressure control mode with rate of 20, pressure of 50 cm of water, respiratory exam of 0.9, FiO2 35% with a PEEP of 5. Blood gas showed a pH of 7.44 with episodes of 32 and pO2 of 109. Chest x-ray findings are stable. Hemodynamically stable. No pressors. He is on no sedative medications for now. Afebrile. Remains on IV cefepime. White cell count is 7.4, hemoglobin is 11.5 and a platelet count of 59. Sodium is 155, potassium is at 4, chloride is 131, BUN is 51 with a creatinine 1.2. LFTs are stable, CPK is down to 214. The patient is running a low-grade fever. Remains on IV cefepime. Sputum culture was polymicrobial including E. coli, Streptococcus and MSSA. Further blood cultures have been sent. No pressors for now. He is currently on Levemir insulin and sliding scale insulin coverage. The patient is also on Glucerna for enteral feeding and nutritional support she is currently at goal at 54 cc an hour. 09/12/2023, I am seeing the patient for a follow-up. The patient is off sedation. The patient is awake and alert and the patient has been on a pressure support mode of mechanical ventilation throughout the night. The patient is currently on a PSV of 7 and a PEEP of 5. The patient is following simple commands. Blood gas from today shows a pH of 7.41 with a pCO2 of 37 and pO2 of 94. Chest x-ray showing a right lower lobe consolidation which could be an area of pneumonia. The patient is currently afebrile. The patient remains on IV cefepime. The tube feeds are currently on hold in anticipation for possible extubation today. Meanwhile, the patient's blood work shows a white cell count of 6.5, hemoglobin 10.7 and a platelet count of 59. Sodium is currently down to 151. BUN is 46 with a creatinine of 1.1. LFTs are normal. Renal function is normal. CPK is down to 81. No other significant events overnight. Hemodynamically stable. Cardiac rhythm is sinus. 09/13/2023, the patient is being seen for the follow-up. The patient was weaned off the mechanical ventilator and the patient was extubated. On today's evaluation, he is alert and awake and is communicating. Nevertheless, he does have some confusion. He is alert and oriented x 1. No signs of respiratory distress. Continues to have a cough and nasal congestion and a chest x-ray from today is essentially unchanged and the patient has stable patchy opacities in the lung base bilaterally. Remains on IV cefepime. Hemodynamically stable. Sodium level is improving and currently is down to 149. Blood sugars under adequate control and the patient is using Levemir insulin 30 units in addition to NovoLog 4 times a day and a sliding scale coverage. Renal function has normalized. No pressors for now. No fever. Remains on D5 water at the rate of 100 cc an hour. 09/14/2023, the patient is being seen for a follow-up. The patient had transferred out of the intensive care unit yesterday. He is alert and communicating. There is some limited baseline confusion. No agitation. No significant respiratory distress. Awaiting labs from today. The patient remains on D5 water. The patient remains on Levemir insulin. Recovered from his DKA. He is able to swallow and he has been provided a diet. No other significant events overnight. The patient remains on IV cefepime regarding bilateral pneumonia. The patient remains on DuoNeb nebulized treatments [id number]. Remains on anticoagulation with Eliquis. Remains on Levemir insulin 15 units at bedtime and NovoLog sliding scale coverage. Remains on IV Protonix. Patient was placed today on 09/15/2023, patient is being followed for his initial presentation with DKA and questionable left lower lobe pneumonia. Patient is doing well today, on 2 L nasal cannula, O2 saturation 93%. Does not seem to be in any form of distress. His sugar today is 294, his anion gap was nonexistent on the labs noted yesterday, and his BUN is 24 creatinine 0.82. Patient remains on amiodarone, Eliquis, he is also on cefepime and fark [employer]. In addition the patient is on DuoNeb updraft 4 times daily and as needed. And on Levemir insulin as well as insulin scale. Patient was evaluated today on 09/16/2023, patient is doing well, relatively asymptomatic, on 2 L nasal cannula O2 sat is 97%. He is hemodynamically stable, blood sugars have been in the range of 144 up to 200 his WBC count is 8.4 hemoglobin is 10 electrolytes are normal except for low potassium of 2.9 his last chest x-ray from 09/12 showed possible left lower lobe pneumonia Patient was evaluated today on 09/17/2023, pulmonary rosario the patient is doing well, does not seem to be in distress, however he is complaining of back pain and rectal pain, his CT of the pelvis showed wall thickening of the rectum/sigmoid colon. Otherwise the patient is doing well, and his abnormal CT of the pelvis is being addressed by surgery on the case. Patient is being considered for colonoscopy and Eliquis will be placed on hold Patient was evaluated today on 09/18/2023, patient is about the same, continues to have some discomfort in his back and in his rectal area, supposed to have colonoscopy tomorrow. Eliquis remains on hold. Patient has no active pulmonary issues. WBC count is 8.6 hemoglobin 10.2 electrolytes are normal renal profile is normal The patient was seen today September 19, 2023 in follow-up on the selective care unit. Today he is found to be weak and obtunded. He is requiring more oxygen currently at 6 L high flow nasal cannula. A rapid response team was called on him. Chest x-ray and ABGs reviewed. He will be transferred to the intensive care unit. Serial blood gases on 100% FiO2 revealed a P O2 of 66, pCO2 of 49 and a pH of 7.32. White count 9.9. Hemoglobin 11.3. Platelets 233. Sodium 143. Potassium 4.5. Bicarb 26. BUN 17. Creatinine 0.87. Glucose 151. The patient has been having concerns of rectal pain and possible rectal mass and the plan was for colonoscopy. However the patient was having ongoing issues with difficulty in swallowing and was being considered for PEG tube placement. This was prior to his change in clinical status. X-ray did reveal a right lower lobe infiltrate with minimal right pleural effusion. Patient was evaluated today on 09/20/2023, patient developed a worsening pulmona ry status yesterday, required transfer to the ICU intubation mechanical ventilation. I saw the patient yesterday, he underwent bronchoscopy, lines were placed and the patient, and he was kept on mechanical ventilation overnight. Patient is now on assist-control rate of 24 tidal volume 450 FiO2 was 80% earlier but is now 50%, and PEEP of 10 ABG showed a pO2 of 92 pCO2 47 pH of 7.30 his urine output is 5 to 20 cc/h, however his CVP is low and the patient will require more fluid boluses if no improvement after fluid boluses, then we will give the patient Lasix. In the meantime the patient is requiring propofol at 35 mg/kg/min norepinephrine at 0.06 mg/kg/min IV fluid running at 100 cc/h and the patient is also receiving vital HP at 10 cc/h antibiotics rosario he is receiving Flagyl and Zosyn. Chest x-ray continues to show bilateral infiltrates consistent with most likely aspiration pneumonia. Patient was seen by infectious disease and he is now on Flagyl and ZosynWBC count today is 13 h emoglobin 9.3 basic metabolic profile is normal renal profile showed a BUN of 29 creatinine 1.45 Patient was evaluated today on 09/21/2023, remains in the ICU, intubated and mechanically ventilated. Patient is on assist-control rate of 24 tidal volume 450 FiO2 50% and PEEP of 10 ABG showed a pO2 of 79 pCO2 43 pH of 7.26, apparently the patient developed some metabolic acidosis associated with acute kidney injury, and I have recommended 1 amp of bicarb to be given and sodium bicarb to be given orally and I also recommended nephrology evaluation on this patient as his renal status seems to be getting worse and the patient is having less and less urine output. CVP is around 7 patient will receive more fluids today, may consider Lasix depending on the response to fluid boluses. Urine output is extremely low. And again his renal functioning is getting worse. Patient remains on propofol at 50 mcg/kg/min he is also on norepinephrine at 0.03 mcg/kg/min, patient is receiving Glucerna 1.5/enteral feeding, patient remains on Lovenox 80 mg SQ twice daily, he is also on Zosyn and Flagyl. Chest x-ray continues to show bilateral infiltrates. Improved compared to his initial chest x-ray but nonetheless considered to be significant airspace disease bilaterally. Microbiology from the bronchial washing/lavage, showed mostly Lisa, Gram stains and cultures from previous sputum from 09/08/2023 showed E. coli Staph aureus and Streptococcus agalactiae Objective - Vital Signs Vital signs: Vital Signs Temp 98.1 F 09/21/23 08:00 Pulse 68 09/21/23 11:14 Resp 24 09/21/23 11:00 BP 113/55 09/21/23 11:00 Pulse Ox 96 09/21/23 11:00 FiO2 50 09/21/23 11:02 Intake & Output 09/20/23 09/21/23 09/21/23 18:59 06:59 18:59 Intake Total 4267.290 2169.105 1898.944 Output Total 115 105 55 Balance 4152.290 2064.105 1843.944 Intake: IV 1269 1366 618 0.9 sodium chloride 1200 1100 500 Piperacillin-Tazobactam 3 100 .375 gm In Sodium Chloride 0.9% 100 ml @ 25 mls/hr IVPB Q8HR [facility] Rx# :[id number] Pressure Bag 69 66 18 metroNIDAZOLE-NS PMX 500 100 100 mg In Saline 1 100ml.bag @ 100 mls/hr IVPB Q8HR [facility] Rx#:[id number] Intake, IV Titration 2628.290 611.356 0850.944 Amount Norepinephrine 4 mg In 368.328 166.765 23.972 Sodium Chloride 0.9% 250 ml @ 0.03 MCG/KG/MIN 11. 064 mls/hr IV .[id number] [facility] Rx#:[id number] Sodium Chloride 0.9% 1, 2000 000 ml @ 999 mls/hr IV . Q1H1M [facility] Rx#:[id number] Sodium Chloride 0.9% 1, 1000 000 ml @ 999 mls/hr IV . Q1H1M [facility] Rx#:[id number] propofoL 1,000 mg In 259.962 286.340 136.972 Empty Bag 1 bag @ 15 MCG/ KG/MIN 8.712 mls/hr IV . [id number] [facility] Rx#:[id number] Tube Feeding 230 290 120 Other 140 60 Output: Urine 115 105 55 Other: Voiding Method Indwelling Catheter Indwelling Catheter Indwelling Catheter # Bowel Movements 1 ABP, PAP, CO, CI - Last Documented Arterial Blood Pressure 129/48 - Exam GENERAL EXAM: 67-year-old white male intubated, mechanically ventilated, sedated, not in distress Endotracheal tube and orogastric tube are intact. HEAD: Normocephalic and atraumatic EYES: Within normal NOSE: Clear with pink turbinates. THROAT: No erythema or exudates. Dry mucous membranes. NECK: No masses, no JVD. Subclavian central line is noted. CHEST: No chest wall deformity. LUNGS: Good breath sound bilaterally mostly diminished at the bases no crackles rhonchi or wheezes CVS: S1 and S2 normal with no soft systolic murmur, regular rhythm. No extra heart sounds ABDOMEN: Abdomen flat, active bowel sounds, no hepatosplenomegaly, no guarding or rigidity. SKIN: No rashes CENTRAL NERVOUS SYSTEM: Could not assess patient is sedated intubated mechanically ventilated Theatric: Could not assess EXTREMITIES: no clubbing, no cyanosis, trace of bipedal edema. - Labs CBC & Chem 7: 09/21/23 04:50 09/21/23 04:50 Labs: Abnormal Lab Results - Last 24 Hours (Table) 09/20/23 09/20/23 09/20/23 Range/Units 11:55 18:19 23:35 RBC (4.30-5.90) m/uL Hgb (13.0-17.5) gm/dL Hct (39.0-53.0) % MCHC (31.0-37.0) g/dL Neutrophils # (1.3-7.7) k/uL Lymphocytes # (1.0-4.8) k/uL ABG pH (7.35-7.45) ABG pO2 (83-108) mmHg ABG HCO3 (21-25) mmol/L Chloride (98-107) mmol/L Carbon Dioxide (22-30) mmol/L BUN (9-20) mg/dL Creatinine (0.66-1.25) mg/dL Glucose (74-99) mg/dL POC Glucose (mg/dL) 118 H 166 H 188 H (70-110) mg/dL Calcium (8.4-10.2) mg/dL 09/21/23 09/21/23 09/21/23 Range/Units 00:34 04:50 04:50 RBC 2.88 L (4.30-5.90) m/uL Hgb 8.7 L (13.0-17.5) gm/dL Hct 28.4 L (39.0-53.0) % MCHC 30.5 L (31.0-37.0) g/dL Neutrophils # 8.3 H (1.3-7.7) k/uL Lymphocytes # 0.8 L (1.0-4.8) k/uL ABG pH (7.35-7.45) ABG pO2 (83-108) mmHg ABG HCO3 (21-25) mmol/L Chloride 118 H (98-107) mmol/L Carbon Dioxide 17 L (22-30) mmol/L BUN 39 H (9-20) mg/dL Creatinine 2.37 H (0.66-1.25) mg/dL Glucose 191 H (74-99) mg/dL POC Glucose (mg/dL) 168 H (70-110) mg/dL Calcium 7.5 L (8.4-10.2) mg/dL 09/21/23 09/21/23 Range/Units 05:31 05:35 RBC (4.30-5.90) m/uL Hgb (13.0-17.5) gm/dL Hct (39.0-53.0) % MCHC (31.0-37.0) g/dL Neutrophils # (1.3-7.7) k/uL Lymphocytes # (1.0-4.8) k/uL ABG pH 7.26 L (7.35-7.45) ABG pO2 79 L (83-108) mmHg ABG HCO3 19 L (21-25) mmol/L Chloride (98-107) mmol/L Carbon Dioxide (22-30) mmol/L BUN (9-20) mg/dL Creatinine (0.66-1.25) mg/dL Glucose (74-99) mg/dL POC Glucose (mg/dL) 206 H (70-110) mg/dL Calcium (8.4-10.2) mg/dL Microbiology - Last 24 Hours (Table) 09/19/23 15:30 Gram Stain - Preliminary Bronchial Washings - Random Bronchial Washings Culture - Preliminary Lisa albicans 09/19/23 15:30 Acid Fast Bacilli Smear - Preliminary Bronchial Washings - Random Assessment and Plan Assessment: Impression: Acute hypoxic respiratory failure secondary to aspiration pneumonia, this is the second time with the patient and Intubated and mechanically ventilated, patient was reintubated today on 09/18 and remains intubated Hypotension, suspect septic shock from pneumonia requiring norepinephrine at present. Patient received multiple fluid boluses prior to this Acute diabetic ketoacidosis, resolved acute hypoxic respiratory failure secondary to aspiration pneumonia Hypovolemic shock on presentation, resolved Acute respiratory failure with lower lobe patchy infiltrate/pneumonia. Required intubation previously but he was extubated on 09/11 Acute rhabdomyolysis Fever, secondary to above, resolved patient remains on cefepime Encephalopathy, rule out anoxic encephalopathy. Mental status is improving Acute rhabdomyolysis, CPK level were elevated. Improving Acute kidney injury, secondary to combination of above, renal function is improving Elevated troponins, likely supply/demand mismatch History of type 2 diabetes mellitus History of bilateral great toe amputations History of hyperlipidemia History of coronary artery disease with previous PCI/stent History of seizure disorder, no seizure activity noted LV dysfunction with ejection fraction of 40 to 45% Acute kidney injury/ATN secondary to hypotension secondary to sepsis and septic shock Recommendation: Continue ventilatory support Continue IV fluids and continue fluid boluses, if no improvement diurese the patient with Lasix. Add sodium bicarb for acute metabolic acidosis which is none anion gap metabolic acidosis secondary to acute renal failure Continue hemodynamic support titrate norepinephrine accordingly Continue antibiotics including Zosyn Continue GI and DVT prophylaxis Continue enteral feeding/nutritional support Continue Levemir insulin and sliding scale/NovoLog insulin Nephrology consultation was initiated for his acute kidney injury/acute renal failure Oral bicarb was added Patient is critically ill, gnosis is relatively guarded Patient is critically ill and critical care time is over 30 Will continue to follow Time with Patient: Greater than 30
[2023-09-21 12:01] LABS: Glucose,Whole Blood 163 mg/dL (70-110)
--- NOTE | 2023-09-21 12:09 | P.PN ---
Subjective Progress Note Date: 09/21/23 Principal diagnosis: Respiratory failure Patient remains on the ventilator. Still on low-dose pressors. Urine output is poor. May require hemodialysis apparently. Objective - Vital Signs Vital signs: Vital Signs Temp 98.1 F 09/21/23 12:00 Pulse 70 09/21/23 12:00 Resp 24 09/21/23 12:00 BP 111/57 09/21/23 11:45 Pulse Ox 96 09/21/23 12:00 FiO2 50 09/21/23 12:00 Intake & Output 09/20/23 09/21/23 09/21/23 18:59 06:59 18:59 Intake Total 4267.290 2169.105 2171.944 Output Total 115 105 65 Balance 4152.290 2064.105 2106.944 Intake: IV 1269 1366 821 0.9 sodium chloride 1200 1100 600 Piperacillin-Tazobactam 3 100 100 .375 gm In Sodium Chloride 0.9% 100 ml @ 25 mls/hr IVPB Q8HR [facility] Rx# :[id number] Pressure Bag 69 66 21 metroNIDAZOLE-NS PMX 500 100 100 mg In Saline 1 100ml.bag @ 100 mls/hr IVPB Q8HR [facility] Rx#:[id number] Intake, IV Titration 2628.290 737.089 2727.944 Amount Norepinephrine 4 mg In 368.328 166.765 23.972 Sodium Chloride 0.9% 250 ml @ 0.03 MCG/KG/MIN 11. 064 mls/hr IV .[id number] [facility] Rx#:[id number] Sodium Chloride 0.9% 1, 2000 000 ml @ 999 mls/hr IV . Q1H1M [facility] Rx#:[id number] Sodium Chloride 0.9% 1, 1000 000 ml @ 999 mls/hr IV . Q1H1M [facility] Rx#:[id number] propofoL 1,000 mg In 259.962 286.340 136.972 Empty Bag 1 bag @ 15 MCG/ KG/MIN 8.712 mls/hr IV . [id number] [facility] Rx#:[id number] Tube Feeding 230 290 160 Other 140 60 30 Output: Urine 115 105 65 Other: Voiding Method Indwelling Catheter Indwelling Catheter Indwelling Catheter # Bowel Movements 1 ABP, PAP, CO, CI - Last Documented Arterial Blood Pressure 120/43 - Exam Abdomen: Soft, nontender, nondistended - Labs CBC & Chem 7: 09/21/23 04:50 09/21/23 04:50 Labs: Abnormal Lab Results - Last 24 Hours (Table) 09/20/23 09/20/23 09/21/23 Range/Units 18:19 23:35 00:34 RBC (4.30-5.90) m/uL Hgb (13.0-17.5) gm/dL Hct (39.0-53.0) % MCHC (31.0-37.0) g/dL Neutrophils # (1.3-7.7) k/uL Lymphocytes # (1.0-4.8) k/uL ABG pH (7.35-7.45) ABG pO2 (83-108) mmHg ABG HCO3 (21-25) mmol/L Chloride (98-107) mmol/L Carbon Dioxide (22-30) mmol/L BUN (9-20) mg/dL Creatinine (0.66-1.25) mg/dL Glucose (74-99) mg/dL POC Glucose (mg/dL) 166 H 188 H 168 H (70-110) mg/dL Calcium (8.4-10.2) mg/dL 09/21/23 09/21/23 09/21/23 Range/Units 04:50 04:50 05:31 RBC 2.88 L (4.30-5.90) m/uL Hgb 8.7 L (13.0-17.5) gm/dL Hct 28.4 L (39.0-53.0) % MCHC 30.5 L (31.0-37.0) g/dL Neutrophils # 8.3 H (1.3-7.7) k/uL Lymphocytes # 0.8 L (1.0-4.8) k/uL ABG pH (7.35-7.45) ABG pO2 (83-108) mmHg ABG HCO3 (21-25) mmol/L Chloride 118 H (98-107) mmol/L Carbon Dioxide 17 L (22-30) mmol/L BUN 39 H (9-20) mg/dL Creatinine 2.37 H (0.66-1.25) mg/dL Glucose 191 H (74-99) mg/dL POC Glucose (mg/dL) 206 H (70-110) mg/dL Calcium 7.5 L (8.4-10.2) mg/dL 09/21/23 09/21/23 Range/Units 05:35 11:59 RBC (4.30-5.90) m/uL Hgb (13.0-17.5) gm/dL Hct (39.0-53.0) % MCHC (31.0-37.0) g/dL Neutrophils # (1.3-7.7) k/uL Lymphocytes # (1.0-4.8) k/uL ABG pH 7.26 L (7.35-7.45) ABG pO2 79 L (83-108) mmHg ABG HCO3 19 L (21-25) mmol/L Chloride (98-107) mmol/L Carbon Dioxide (22-30) mmol/L BUN (9-20) mg/dL Creatinine (0.66-1.25) mg/dL Glucose (74-99) mg/dL POC Glucose (mg/dL) 163 H (70-110) mg/dL Calcium (8.4-10.2) mg/dL Microbiology - Last 24 Hours (Table) 09/19/23 15:30 Gram Stain - Preliminary Bronchial Washings - Random Bronchial Washings Culture - Preliminary Lisa albicans 09/19/23 15:30 Acid Fast Bacilli Smear - Preliminary Bronchial Washings - Random Assessment and Plan Plan: Patient remains in the ICU on the ventilator at this time. Upper and lower endoscopy along with PEG tube placement on hold for now. Apparently family not interested in PEG tube. Await family decisions regarding extent of care particularly as it pertains to endoscopic intervention. Will follow.
--- NOTE | 2023-09-21 12:20 | P.PN ---
Subjective Progress Note Date: 09/21/23 Principal diagnosis: Reason for follow-up is fever Patient is a 67-year-old male with a past medical history significant for coronary disease diabetes mellitus SC seizure disorder history of diabetic foot infection status post bilateral big toe amputation presenting to the hospital with unresponsiveness patient was initially hypothermic subsequently started spiking fever initial workup with a chest x-ray and urine was negative. On today's evaluation that is 09/21/2023, Patient is afebrile this morning patient remains to be intubated on the vent FiO2 at 50% no significant purulent secretions through the ET patient is requiring less pressor support has been tolerating his tube feeds and did have a soft bowel movement. Patient white normalized to 9.7, creatinine is 2.37 bronchial washings growing Lisa albicans Objective - Vital Signs Vital signs: Vital Signs Temp 98.1 F 09/21/23 08:00 Pulse 67 09/21/23 11:04 Resp 24 09/21/23 11:00 BP 113/55 09/21/23 11:00 Pulse Ox 96 09/21/23 11:00 FiO2 50 09/21/23 11:02 Intake & Output 09/20/23 09/21/23 09/21/23 18:59 06:59 18:59 Intake Total 4267.290 2169.105 1898.944 Output Total 115 105 55 Balance 4152.290 2064.105 1843.944 Intake: IV 1269 1366 618 0.9 sodium chloride 1200 1100 500 Piperacillin-Tazobactam 3 100 .375 gm In Sodium Chloride 0.9% 100 ml @ 25 mls/hr IVPB Q8HR [facility] Rx# :[id number] Pressure Bag 69 66 18 metroNIDAZOLE-NS PMX 500 100 100 mg In Saline 1 100ml.bag @ 100 mls/hr IVPB Q8HR [facility] Rx#:[id number] Intake, IV Titration 2628.290 137.817 9628.944 Amount Norepinephrine 4 mg In 368.328 166.765 23.972 Sodium Chloride 0.9% 250 ml @ 0.03 MCG/KG/MIN 11. 064 mls/hr IV .[id number] [facility] Rx#:[id number] Sodium Chloride 0.9% 1, 2000 000 ml @ 999 mls/hr IV . Q1H1M [facility] Rx#:[id number] Sodium Chloride 0.9% 1, 1000 000 ml @ 999 mls/hr IV . Q1H1M [facility] Rx#:[id number] propofoL 1,000 mg In 259.962 286.340 136.972 Empty Bag 1 bag @ 15 MCG/ KG/MIN 8.712 mls/hr IV . [id number] [facility] Rx#:[id number] Tube Feeding 230 290 120 Other 140 60 Output: Urine 115 105 55 Other: Voiding Method Indwelling Catheter Indwelling Catheter Indwelling Catheter # Bowel Movements 1 ABP, PAP, CO, CI - Last Documented Arterial Blood Pressure 129/48 - Exam GENERAL DESCRIPTION: An elderly male intubated on the vent RESPIRATORY SYSTEM: Unlabored breathing , decreased breath sounds at bases HEART: S1 S2 regular rate and rhythm , ABDOMEN: Soft , no tenderness EXTREMITIES: No edema feet - Labs CBC & Chem 7: 09/21/23 04:50 09/21/23 04:50 Labs: Abnormal Lab Results - Last 24 Hours (Table) 09/20/23 09/20/23 09/20/23 Range/Units 11:55 18:19 23:35 RBC (4.30-5.90) m/uL Hgb (13.0-17.5) gm/dL Hct (39.0-53.0) % MCHC (31.0-37.0) g/dL Neutrophils # (1.3-7.7) k/uL Lymphocytes # (1.0-4.8) k/uL ABG pH (7.35-7.45) ABG pO2 (83-108) mmHg ABG HCO3 (21-25) mmol/L Chloride (98-107) mmol/L Carbon Dioxide (22-30) mmol/L BUN (9-20) mg/dL Creatinine (0.66-1.25) mg/dL Glucose (74-99) mg/dL POC Glucose (mg/dL) 118 H 166 H 188 H (70-110) mg/dL Calcium (8.4-10.2) mg/dL 09/21/23 09/21/23 09/21/23 Range/Units 00:34 04:50 04:50 RBC 2.88 L (4.30-5.90) m/uL Hgb 8.7 L (13.0-17.5) gm/dL Hct 28.4 L (39.0-53.0) % MCHC 30.5 L (31.0-37.0) g/dL Neutrophils # 8.3 H (1.3-7.7) k/uL Lymphocytes # 0.8 L (1.0-4.8) k/uL ABG pH (7.35-7.45) ABG pO2 (83-108) mmHg ABG HCO3 (21-25) mmol/L Chloride 118 H (98-107) mmol/L Carbon Dioxide 17 L (22-30) mmol/L BUN 39 H (9-20) mg/dL Creatinine 2.37 H (0.66-1.25) mg/dL Glucose 191 H (74-99) mg/dL POC Glucose (mg/dL) 168 H (70-110) mg/dL Calcium 7.5 L (8.4-10.2) mg/dL 09/21/23 09/21/23 Range/Units 05:31 05:35 RBC (4.30-5.90) m/uL Hgb (13.0-17.5) gm/dL Hct (39.0-53.0) % MCHC (31.0-37.0) g/dL Neutrophils # (1.3-7.7) k/uL Lymphocytes # (1.0-4.8) k/uL ABG pH 7.26 L (7.35-7.45) ABG pO2 79 L (83-108) mmHg ABG HCO3 19 L (21-25) mmol/L Chloride (98-107) mmol/L Carbon Dioxide (22-30) mmol/L BUN (9-20) mg/dL Creatinine (0.66-1.25) mg/dL Glucose (74-99) mg/dL POC Glucose (mg/dL) 206 H (70-110) mg/dL Calcium (8.4-10.2) mg/dL Microbiology - Last 24 Hours (Table) 09/19/23 15:30 Gram Stain - Preliminary Bronchial Washings - Random Bronchial Washings Culture - Preliminary Lisa albicans 09/19/23 15:30 Acid Fast Bacilli Smear - Preliminary Bronchial Washings - Random Assessment and Plan (1) Fever Current Visit: Yes Status: Acute Code(s): R50.9 - FEVER, UNSPECIFIED SNOMED Code(s): 834727777 (2) Pneumonia Current Visit: Yes Status: Acute Code(s): J18.9 - PNEUMONIA, UNSPECIFIED ORGANISM SNOMED Code(s): 044259910 (3) Diarrhea Current Visit: Yes Status: Acute Code(s): R19.7 - DIARRHEA, UNSPECIFIED SNOMED Code(s): 76058999 Plan: 1patient with an episode of less responsiveness and concern for possible aspiration but the patient has been transferred back to the ICU patient is status post bronchoscopy and cultures are currently growing Lisa albicans 2patient did have resolution of his fever and the patient white count has normalized,will continue with Zosyn 3.375 g 8 hours and monitor clinical course closely Dictation was produced using [employer] dictation software. please excuse any grammatical, word or spelling errors. Time with Patient: Less than 30
--- NOTE | 2023-09-21 12:43 | P.PN ---
Subjective Progress Note Date: 09/21/23 Romel Malin is a 67-year-old male with past medical history significant for diabetes mellitus, prior toe amputations, hyperlipidemia, coronary artery disease with previous stents, and seizure disorder. He is currently intubated to the mechanical ventilator, unresponsive without any sedation, unable to provide any information. Patient was transferred from [facility] late last night. Apparently, found unresponsive by his girlfriend, and last known well was 24 hours prior. Patient was intubated by EMS on arrival and triaged to [facility]. Initial presentation was consistent with DKA. Subsequently, the patient was transferred to [facility]. Patient is currently in trauma bay 1, he is intubated mechanical ventilator. Chest x-ray on arrival to our facility shows the endotracheal tube in satisfactory position approximately 4 cm above the mahesh. There is an orogastric tube that should be advanced. Right IJ central line catheter appears to terminate at the Cavo atrial junction. No focal infiltrates or evidence of pneumonia. Current ventilator settings are assist-control, respiratory rate 14, tidal volume 500, FiO2 35%, PEEP of 5. He is breathing slightly above set rate. Not on any sedation. Remains unresponsive even to deep painful stimuli. CT of the brain did not show any acute intracranial hemorrhage or mass effect. ABG is consistent with profound metabolic acidosis, with a PaO2 of 204, pCO2 of 25, pH of 7.04. Patient has been given a total of 2 A of bicarb. He is hypotensive and in a shock state, he has been fluid resuscitated with at least 2.5 L crystalloid fluid. No insulin infusion is currently ordered. He remains profoundly hypotensive, and has been started on norepinephrine which is currently infusing at 0.06 mcg/kg/min. CBC: WBC count 8.8, hemoglobin 14.5, hematocrit 50.3, platelets 136. CMP: Sodium 143, potassium 5.2, chloride 115, serum bicarb less than 5, anion gap unmeasurable, BUN 134, creatinine 4.29, gluc ose 910. Lactic 1.1. LFTs not elevated. Total bilirubin 0.7. Ammonia less than 9. CPK was 882. Troponin 0.084. NT BNP 2720. EKG shows normal sinus rhythm and is nondiagnostic for acute ischemia. Urinalysis positive for glucose and ketones. Urine toxicology screen at outside facility was essentially negative. Serum alcohol less than 10. Patient will be admitted to the intensive care unit once bed available. 09/09/2023 Patient grimaces to pain but does not follow commands. He remains off sedatives. Suspect to be hypoxic encephalopathy. Neurolgy was consulted and advises mentation is likely due to metabolic injury. CT scan of the brain yesterday that showed no midline shift or swelling. Patient anion gap has closed with an anion gap of 6, bicarb 17. Potassium at 3.3. Replacement ongoing per protocol. Blood sugars 879. Insulin IV will be discontinued and will transiotion to Insulin detemir SQ. Patient began to show increased breathing on the mechanical ventilator and was switched to pressure control rate of 20, tidal volume of 500, FiO2 of 35%, and a PEEP of 5. ABG showed pH of 7.4 with a pCO2 of 29 and pO2 of 103. WBC is at 5 with a hemoglobin of 12 and a platelet count of 62. Heparin SQ discontinued. Chest x-ray show atelectatic changes in lung base bilaterally. Sputum is showing 09/09 Patient still encephaolpathic but now opens eyes to command, moves arms independently, only grimaces to pain. Patient still intubated and comfortable on current vent settings. Still not on any sedation. Potassium replacement on going as per protocol but on the uptrend latest at 3.5 . Glucose at the 211 and sustaining at levels of 200s. On Glucerna 1.5 rate at 30cc/hr via enteral feeding. Insulin increased to 25 units and on sliding scale coverage. Sputum culture grew gram-negative bacillus and presumptive Staph aureus. started on IV Cefepime. WBC 4.7, hemoglobin 11.4, hematocrit 35 and platelet count 49. Blood pressures increase at 140-160/60-80. Started on IV hydralazine 10mg PRN. Afebrile on assessment. Sodium elevated trend at 152. 0.45% normal saline discontinued and start on free water through OG tube. 09/10. Patient seen and examined. Continues to be intubated at the bedside, all questions answered 09/11. Patient seen and examined. Patient extubated this morning, following commands, currently on oxygen via nasal cannula 09/12. Patient seen and examined. Labs done this morning showed WBC 7.6, hemoglobin 10.8, platelet count 90, sodium 149, potassium 3.6, BUN 36, creatinine 1.06. Patient getting chest PT 09/13. Patient seen and examined. Currently on thickened liquid diet. Speech evaluation pending. Decrease fluids. 09/15/2023 telemetry sinus rhythm. Continues on amiodarone, Farxiga. Anticoagulated on Eliquis. Confused this morning, alert and oriented to person, knows he is in the hospital but thinks he is in [place], [place]. Maintaining O2 sat of 94% on 2 L nasal cannula on cefepime and nebulized bronchodilators. Choking on applesauce during speech therapy's evaluation, modified barium swallow ordered. Blood sugars in the low 200s during the night, better controlled this morning, 132. Hemoglobin A1c 11.9. 09/16/2023 MBS results noted-speech therapy recommending ground meats, nectar liquids, no straw, liquids from cup, small bites and sips with direct supervision , sitting upright 90 degrees and ongoing speech therapy. O2 sats improved, 97% on 2 L nasal cannula. Maintained on cefepime as per ID, afebrile, normal WBC. Hemoglobin 10, platelets 146. Potassium 2.9-supplementation and magnesium level ordered. Blood sugars better controlled. Renal function stable. Telemetry sinus rhythm. PT pending. 09/17/2023 Maintained on cefepime.yesterday Ochoa catheter discontinued but patient developed urinary retention and Ochoa catheter reinserted .ongoing lower back and rectal pain. lumbar CT reported no evidence for spinal fracture, moderate degeneration changes without evidence for significant spinal canal stenosis, moderate bilateral L5-S1 and L4-L5 neuroforaminal stenosis, bilateral lung consolidation possibly representing atelectasis with superimposed infection not excluded, trace right pleural effusion. Pelvis CT reporting circumferential wall thickening of the rectum/sigmoid colon , prominent mesenteric lymph nodes around the rectum also present direct visualization recommended to rule out mass, colonic diverticulosis, fat-containing right inguinal hernia, no evidence of fracture, mild to moderate bilateral hip osteoarthrosis and moderate degenerative changes of the spine. Vague historian, unsure of last colonoscopy. Denies nausea vomiting. Potassium 3.5-supplemented, renal function stable. 09/18/2023 continues to complain of back and rectal pain. Eliquis remains on hold, general surgery discussing colonoscopy for tomorrow. Renal function stable, Hemoglobin 10.2, platelets 193. Blood sugars controlled. 09/19/2023 Eliquis remains on hold. Patient initially was scheduled for colon oscopy today. patient developed increased difficulty swallowing, bowel prep and colonoscopy canceled by general surgery. General surgery scheduled patient for PEG tube placement for Friday. oxygen requirement increased from 2 to 6 L nasal cannula. Spotcheck reported O2 sat of 93% on 6 L nasal cannula. Chest x-ray from last night reported right lower lobe infiltrate, minimal right pleural effusion. As the morning progressed, respiratory status declined, BiPAP and ABGs ordered. Upon entering the room to apply BiPAP, patient unresponsive and A team called, intubated and transferred to ICU. 09/19. Patient seen and examined. Dr. Rodriguez took over care from Dr. Kwok. Patient currently intubated and sedated. 09/20. Patient seen and examined. Blood work done this morning showed WBC 9.7, hemoglobin 8.7, platelet count 197, sodium 144, potassium 4.6, BUN 39, creatinine 2.37 REVIEW OF SYSTEMS: Intubated review of system cannot be obtained PHYSICAL EXAMINATION: GENERAL: The patient is intubated HEENT: Pupils are round and equally reacting to light. EOMI. No scleral icterus. No conjunctival pallor. Normocephalic, atraumatic. No pharyngeal erythema. No thyromegaly. CARDIOVASCULAR: S1 and S2 present. No murmurs, rubs, or gallops. PULMONARY: Chest is clear to auscultation, no wheezing or crackles. ABDOMEN: Soft, nontender, nondistended, normoactive bowel sounds. No palpable organomegaly. MUSCULOSKELETAL: No joint swelling or deformity. EXTREMITIES: No cyanosis, clubbing, or pedal edema. NEUROLOGICAL: Intubated and sedated SKIN: No rashes. Assessment and plan Acute hypoxic and hypercapnic respiratory failure, status post reintubation on 09/19/2023. Suspect aspiration Acute DKA, anion gap closed , resolved Severe anion gap metabolic acidosis secondary to the above, status post bicarb drip. Hypotensive ,hypovolemic shock, status post pressor dependent, resolved Acute hypoxic respiratory failure, status post mechanical ventilator dependent. Acute left lower lobe pneumonia as per pulmonary, sputum culture, polymicrobial, reporting E. coli, Staphylococcus aureus-MSSA, strep agalactiae group B. Dysphagia, delayed swallowing, MBS completed-speech recommending dysphagia level 2 diet, one-to-one supervision, aspiration precautions Rectal pain, wall thickening of the rectum/sigmoid colon reported per CT Fat-containing right inguinal hernia reported per CT Hyperchloremic hypernatremia, resolved. Thrombocytopenia Paroxysmal atrial fibrillation Sepsis, secondary to all the above, resolved. Acute metabolic encephalopathy secondary to all the above, suspect anoxic. Brain CT did not report any acute abnormalities, EEG reported slowing suggestive of severe encephalopathy likely due to toxic metabolic derangement. Acute rhabdomyolysis Acute renal failure, improving Elevated troponin, multifactorial secondary to all the above, ACS ruled out,Type II NC as per cardiology. Severe dehydration Diabetes mellitus type 2, hemoglobin A1c 11.9 CAD, history of NC, stent History of seizure disorder, on Keppra Stage I pressure ulcer, 1 cm near rectum Fungal rash, anterior scrotum Hypokalemia Plan: Monitor vital sign Monitor CBC Monitor CMP Continue vent management per ICU aggressive bronchopulmonary hygiene Continue chest physical therapy Continue IV fluids continue IV Zosyn Monitor blood sugar levels, continue current insulin regimen Critical care following ID following General surgery following, upper and lower endoscopy with PEG tube placement on hold at this time, family not interested in PEG tube placement Nephrology consulted for acute kidney injury Labs and medication were reviewed.. Continue same treatment. Continue with s ymptomatic treatment. Resume home medication. Monitor labs and vitals. DVT and GI prophylaxis. Further recommendations as per clinical course of the patient Dictation was produced using [employer] dictation software. please excuse any grammatical, word or spelling errors. Objective - Vital Signs Vital signs: Vital Signs Temp 98.1 F 09/21/23 12:00 Pulse 70 09/21/23 12:00 Resp 24 09/21/23 12:00 BP 111/57 09/21/23 11:45 Pulse Ox 96 09/21/23 12:00 FiO2 50 09/21/23 12:00 Intake & Output 09/20/23 09/21/23 09/21/23 18:59 06:59 18:59 Intake Total 4267.290 2169.105 2171.944 Output Total 115 105 65 Balance 4152.290 2064.105 2106.944 Intake: IV 1269 1366 821 0.9 sodium chloride 1200 1100 600 Piperacillin-Tazobactam 3 100 100 .375 gm In Sodium Chloride 0.9% 100 ml @ 25 mls/hr IVPB Q8HR [facility] Rx# :[id number] Pressure Bag 69 66 21 metroNIDAZOLE-NS PMX 500 100 100 mg In Saline 1 100ml.bag @ 100 mls/hr IVPB Q8HR [facility] Rx#:[id number] Intake, IV Titration 2628.290 320.378 3967.944 Amount Norepinephrine 4 mg In 368.328 166.765 23.972 Sodium Chloride 0.9% 250 ml @ 0.03 MCG/KG/MIN 11. 064 mls/hr IV .[id number] [facility] Rx#:[id number] Sodium Chloride 0.9% 1, 2000 000 ml @ 999 mls/hr IV . Q1H1M [facility] Rx#:[id number] Sodium Chloride 0.9% 1, 1000 000 ml @ 999 mls/hr IV . Q1H1M [facility] Rx#:[id number] propofoL 1,000 mg In 259.962 286.340 136.972 Empty Bag 1 bag @ 15 MCG/ KG/MIN 8.712 mls/hr IV . [id number] [facility] Rx#:[id number] Tube Feeding 230 290 160 Other 140 60 30 Output: Urine 115 105 65 Other: Voiding Method Indwelling Catheter Indwelling Catheter Indwelling Catheter # Bowel Movements 1 ABP, PAP, CO, CI - Last Documented Arterial Blood Pressure 120/43 - Labs CBC & Chem 7: 09/21/23 04:50 09/21/23 04:50 Labs: Abnormal Lab Results - Last 24 Hours (Table) 09/20/23 09/20/23 09/21/23 Range/Units 18:19 23:35 00:34 RBC (4.30-5.90) m/uL Hgb (13.0-17.5) gm/dL Hct (39.0-53.0) % MCHC (31.0-37.0) g/dL Neutrophils # (1.3-7.7) k/uL Lymphocytes # (1.0-4.8) k/uL ABG pH (7.35-7.45) ABG pO2 (83-108) mmHg ABG HCO3 (21-25) mmol/L Chloride (98-107) mmol/L Carbon Dioxide (22-30) mmol/L BUN (9-20) mg/dL Creatinine (0.66-1.25) mg/dL Glucose (74-99) mg/dL POC Glucose (mg/dL) 166 H 188 H 168 H (70-110) mg/dL Calcium (8.4-10.2) mg/dL 09/21/23 09/21/23 09/21/23 Range/Units 04:50 04:50 05:31 RBC 2.88 L (4.30-5.90) m/uL Hgb 8.7 L (13.0-17.5) gm/dL Hct 28.4 L (39.0-53.0) % MCHC 30.5 L (31.0-37.0) g/dL Neutrophils # 8.3 H (1.3-7.7) k/uL Lymphocytes # 0.8 L (1.0-4.8) k/uL ABG pH (7.35-7.45) ABG pO2 (83-108) mmHg ABG HCO3 (21-25) mmol/L Chloride 118 H (98-107) mmol/L Carbon Dioxide 17 L (22-30) mmol/L BUN 39 H (9-20) mg/dL Creatinine 2.37 H (0.66-1.25) mg/dL Glucose 191 H (74-99) mg/dL POC Glucose (mg/dL) 206 H (70-110) mg/dL Calcium 7.5 L (8.4-10.2) mg/dL 09/21/23 09/21/23 Range/Units 05:35 11:59 RBC (4.30-5.90) m/uL Hgb (13.0-17.5) gm/dL Hct (39.0-53.0) % MCHC (31.0-37.0) g/dL Neutrophils # (1.3-7.7) k/uL Lymphocytes # (1.0-4.8) k/uL ABG pH 7.26 L (7.35-7.45) ABG pO2 79 L (83-108) mmHg ABG HCO3 19 L (21-25) mmol/L Chloride (98-107) mmol/L Carbon Dioxide (22-30) mmol/L BUN (9-20) mg/dL Creatinine (0.66-1.25) mg/dL Glucose (74-99) mg/dL POC Glucose (mg/dL) 163 H (70-110) mg/dL Calcium (8.4-10.2) mg/dL Microbiology - Last 24 Hours (Table) 09/19/23 15:30 Gram Stain - Preliminary Bronchial Washings - Random Bronchial Washings Culture - Preliminary Lisa albicans 09/19/23 15:30 Acid Fast Bacilli Smear - Preliminary Bronchial Washings - Random
[2023-09-21] MEDS: FUROSEMIDE 10 MG/ML 10 ML VIAL IV STA (13:14)
--- NOTE | 2023-09-21 13:27 | US ---
EXAMINATION TYPE: US kidneys/renal and bladder DATE OF EXAM: 09/21/2023 Exam done portable in ICU COMPARISON: NONE CLINICAL INDICATION: Male, 67 years old with history of jeffrey; EXAM MEASUREMENTS: Right Kidney: 11.5 x 5.8 x 5.0 cm Left Kidney: 12.1 x 6.5 x 5.6 cm Right Kidney: No hydronephrosis or masses seen Left Kidney: 2.1cm cystic area lateral mid pole Bladder: not distended, bender catheter There is no evidence for hydronephrosis at this point in time. No nephrolithiasis is seen. The urin nessa bladder is anechoic. Bilateral ureteral jets are seen. IMPRESSION: Left renal cyst
[2023-09-21] MEDS: FUROSEMIDE 100 MG in SODIUM CHLORIDE 0.9% 90 ML IV SCH (16:36)
[2023-09-21 19:22] LABS: Glucose,Whole Blood 171 mg/dL (70-110)
[2023-09-21 23:26] LABS: Glucose,Whole Blood 173 mg/dL (70-110)
[2023-09-22 05:21] LABS: HCT 27.3 % (39.0-53.0); Hypochromasia Marked; MCHC 29.4 g/dL (31.0-37.0); MCV 98.7 fL (80.0-100.0); Mean Platelet Volume 9.9; Platelet Count 172 k/uL (150-450); RBC 2.77 m/uL (4.30-5.90); RDW 13.7 % (11.5-15.5); WBC 9.1 k/uL (3.8-10.6)
[2023-09-22 05:55] LABS: ALT 11 U/L (4-49); AST 29 U/L (17-59); African American GFR (CKD) 24 (>60 ml/min/1.73 sqM); Albumin 1.7 g/dL (3.5-5.0); Alkaline Phosphatase 168 U/L (38-126); Anion Gap 10 mmol/L; Blood Urea Nitrogen 46 mg/dL (9-20); Calcium 7.2 mg/dL (8.4-10.2); Carbon Dioxide 16 mmol/L (22-30); Chloride 119 mmol/L (98-107); Glucose 178 mg/dL (74-99); Non-African American GFR(CKD) 21 (>60 ml/min/1.73 sqM); Potassium 4.4 mmol/L (3.5-5.1); Sodium 145 mmol/L (137-145); Total Bilirubin 0.5 mg/dL (0.2-1.3); Total Protein 4.2 g/dL (6.3-8.2)
[2023-09-22 06:12] LABS: Glucose,Whole Blood 190 mg/dL (70-110)
[2023-09-22 06:17] LABS: ABG Base Excess -8.6 mmol/L; ABG HCO3 18 mmol/L (21-25); ABG Oxygen Saturation 97.1 % (94-97); ABG PCO2 42 mmHg (35-45); ABG PH 7.24 (7.35-7.45); ABG PO2 97 mmHg (83-108); ABG TCO2 20 mmol/L (19-24)
--- NOTE | 2023-09-22 07:27 | XR ---
EXAMINATION TYPE: XR chest 1V portable DATE OF EXAM: 09/22/2023 COMPARISON: 09/21/2023 INDICATION: Tube placement TECHNIQUE: Single frontal view of the chest is obtained. FINDINGS: The heart size is normal. The pulmonary vasculature is normal. Bibasilar infiltrates are present. Correlate for atelectasis and pneumonia. Endotracheal tube tip is above the mahesh. Nasogastric tube tip is in the abdomen. Left central venou s catheter tip is in the superior vena cava region. Spondylosis within the thoracic spine. IMPRESSION: 1. Worsening bibasilar infiltrates. Correlate for atelectasis or pneumonia. Follow-up is recommended. 2. Lines and catheters discussed above.
[2023-09-22] MEDS ORDERED: LOPERAMIDE 2 MG CAP PO PRN (09:29)
[2023-09-22] MEDS: SODIUM BICARB 8.4% 50 ML SYR (1 MEQ/ML) IV STA (10:54)
--- NOTE | 2023-09-22 10:55 | P.PN ---
Subjective Progress Note Date: 09/22/23 CHIEF COMPLAINT: Rectal mass inadequate oral intake HISTORY OF PRESENT ILLNESS: The patient is a 67-year-old male transferred to the intensive care unit and on full ventilatory support after aspirating. Patient is on vasopressors. Prior to transfer to the ICU, patient did consent to feeding tube. Patient is now unstable. Per discussion with nursing, family does not want feeding tube. However family does want all done for him. Nursing at bedside requesting placement of fecal stool system ROS: No fevers or chills. No new chest pain. On full ventilatory support. PHYSICAL EXAM: VITAL SIGNS: Reviewed CONSTITUTIONAL: Well developed and in no acute distress. EYES: Conjuctivae without sclera icterus. Extraocular movements grossly intact. HEAD, EARS, NOSE, THROAT: Moist buccal mucosa. Head is atraumatic, normocephalic. Hears conversational speech. No nasal drainage. RESPIRATORY: Non-labored respirations and equal bilateral excursions. On full ventilatory support. CARDIOVASCULAR: Palpable 2+ radial pulses. ABDOMEN: Nondistended. Has orogastric tube. MUSCULOSKELETAL: No gross deformity of the lower extremities noted. No clubbing. No cyanosis. SKIN: Good skin turgor. Well perfused. NEUROLOGIC: Cranial nerves II through XII grossly intact. No focal or lateralizing signs. PSYCH: Appropriate affect. Alert and oriented to person, place and time. CLINICAL LABS: Reviewed. WBC normal. Hemoglobin 8.0. Albumin 1.7 ASSESSMENT: 1. Acute hypoxia and respiratory failure due to aspiration 2. Inadequate protein malnutrition 3. Severe hypoalbuminemia 4. Anemia PLAN: 1. Patient is unstable. Given his multiple comorbidities, prognosis is very poor. 2. No acute surgical intervention or endoscopies at this time 3. May have fecal stool system Objective - Vital Signs Vital signs: Vital Signs Temp 98.1 F 09/22/23 08:00 Pulse 71 09/22/23 10:00 Resp 27 H 09/22/23 10:00 BP 128/62 09/22/23 10:00 Pulse Ox 96 09/22/23 10:00 FiO2 50 09/22/23 10:00 Intake & Output 09/21/23 09/22/23 09/22/23 18:59 06:59 18:59 Intake Total 3262.121 2373.046 788.661 Output Total 180 295 72 Balance 3082.121 2078.046 716.661 Intake: IV 1439 1366 365 0.9 sodium chloride 1200 1200 220 Furosemide 100 mg In 30 Sodium Chloride 0.9% 90 ml @ 10 MG/HR 10 mls/hr IV .Q10H [facility] Rx#: [id number] Piperacillin-Tazobactam 3 100 100 100 .375 gm In Sodium Chloride 0.9% 100 ml @ 25 mls/hr IVPB Q8HR [facility] Rx# :[id number] Pressure Bag 39 66 15 metroNIDAZOLE-NS PMX 500 100 mg In Saline 1 100ml.bag @ 100 mls/hr IVPB Q8HR [facility] Rx#:[id number] Intake, IV Titration 1363.121 397.046 243.661 Amount Furosemide 100 mg In 85.833 84.667 Sodium Chloride 0.9% 90 ml @ 10 MG/HR 10 mls/hr IV .Q10H [facility] Rx#: [id number] Norepinephrine 4 mg In 165.837 111.213 Sodium Chloride 0.9% 250 ml @ 0.03 MCG/KG/MIN 11. 064 mls/hr IV .[id number] [facility] Rx#:[id number] Sodium Chloride 0.9% 1, 1000 000 ml @ 999 mls/hr IV . Q1H1M [facility] Rx#:[id number] propofoL 1,000 mg In 197.284 200 115.434 Empty Bag 1 bag @ 15 MCG/ KG/MIN 8.712 mls/hr IV . [id number] [facility] Rx#:[id number] propofoL 1,000 mg In 43.56 Empty Bag 1 bag @ 15 MCG/ KG/MIN 8.712 mls/hr IV . [id number] [facility] Rx#:[id number] Tube Feeding 400 520 150 Other 60 90 30 Output: Urine 180 295 70 Stool 2 Other: Voiding Method Indwelling Catheter Indwelling Catheter # Bowel Movements 1 1 ABP, PAP, CO, CI - Last Documented Arterial Blood Pressure 131/44 - Labs CBC & Chem 7: 09/22/23 04:41 09/22/23 04:41 Labs: Abnormal Lab Results - Last 24 Hours (Table) 09/21/23 09/21/23 09/21/23 Range/Units 11:59 19:21 23:25 RBC (4.30-5.90) m/uL Hgb (13.0-17.5) gm/dL Hct (39.0-53.0) % MCHC (31.0-37.0) g/dL ABG pH (7.35-7.45) ABG HCO3 (21-25) mmol/L ABG O2 Saturation (94-97) % Chloride (98-107) mmol/L Carbon Dioxide (22-30) mmol/L BUN (9-20) mg/dL Creatinine (0.66-1.25) mg/dL Glucose (74-99) mg/dL POC Glucose (mg/dL) 163 H 171 H 173 H (70-110) mg/dL Calcium (8.4-10.2) mg/dL Alkaline Phosphatase (38-126) U/L Total Protein (6.3-8.2) g/dL Albumin (3.5-5.0) g/dL 09/22/23 09/22/23 09/22/23 Range/Units 04:41 04:41 06:03 RBC 2.77 L (4.30-5.90) m/uL Hgb 8.0 L (13.0-17.5) gm/dL Hct 27.3 L (39.0-53.0) % MCHC 29.4 L (31.0-37.0) g/dL ABG pH 7.24 L (7.35-7.45) ABG HCO3 18 L (21-25) mmol/L ABG O2 Saturation 97.1 H (94-97) % Chloride 119 H (98-107) mmol/L Carbon Dioxide 16 L (22-30) mmol/L BUN 46 H (9-20) mg/dL Creatinine 2.98 H (0.66-1.25) mg/dL Glucose 178 H (74-99) mg/dL POC Glucose (mg/dL) (70-110) mg/dL Calcium 7.2 L (8.4-10.2) mg/dL Alkaline Phosphatase 168 H (38-126) U/L Total Protein 4.2 L (6.3-8.2) g/dL Albumin 1.7 L (3.5-5.0) g/dL 09/22/23 Range/Units 06:10 RBC (4.30-5.90) m/uL Hgb (13.0-17.5) gm/dL Hct (39.0-53.0) % MCHC (31.0-37.0) g/dL ABG pH (7.35-7.45) ABG HCO3 (21-25) mmol/L ABG O2 Saturation (94-97) % Chloride (98-107) mmol/L Carbon Dioxide (22-30) mmol/L BUN (9-20) mg/dL Creatinine (0.66-1.25) mg/dL Glucose (74-99) mg/dL POC Glucose (mg/dL) 190 H (70-110) mg/dL Calcium (8.4-10.2) mg/dL Alkaline Phosphatase (38-126) U/L Total Protein (6.3-8.2) g/dL Albumin (3.5-5.0) g/dL Microbiology - Last 24 Hours (Table) 09/19/23 15:30 Gram Stain - Final Bronchial Washings - Random Bronchial Washings Culture - Final Lisa albicans 09/20/23 14:55 Blood Culture - Preliminary Blood
[2023-09-22] MEDS: LOPERAMIDE 2 MG CAP PO STA (11:03)
--- NOTE | 2023-09-22 11:19 | P.PN ---
Subjective Patient is seen in follow-up for acute kidney injury. Renal function worsening. Patient is currently maintained on Lasix drip. Also received IV fluids overnight. No significant improvement in urine output. Intubated. On Levophed. Vital signs are stable. On vasopressor support. General: Resting in bed. HEENT: Intubated. LUNGS: Scattered rhonchi. HEART: Rate and Rhythm are regular. ABDOMEN: No distention. EXTREMITITES: 1+ edema. Scrotal edema noted. Objective - Vital Signs Vital signs: Vital Signs Temp 98.1 F 09/22/23 08:00 Pulse 71 09/22/23 10:00 Resp 27 H 09/22/23 10:00 BP 128/62 09/22/23 10:00 Pulse Ox 96 09/22/23 10:00 FiO2 50 09/22/23 10:00 Intake & Output 09/21/23 09/22/23 09/22/23 18:59 06:59 18:59 Intake Total 3262.121 2373.046 788.661 Output Total 180 295 72 Balance 3082.121 2078.046 716.661 Intake: IV 1439 1366 365 0.9 sodium chloride 1200 1200 220 Furosemide 100 mg In 30 Sodium Chloride 0.9% 90 ml @ 10 MG/HR 10 mls/hr IV .Q10H [facility] Rx#: [id number] Piperacillin-Tazobactam 3 100 100 100 .375 gm In Sodium Chloride 0.9% 100 ml @ 25 mls/hr IVPB Q8HR [facility] Rx# :[id number] Pressure Bag 39 66 15 metroNIDAZOLE-NS PMX 500 100 mg In Saline 1 100ml.bag @ 100 mls/hr IVPB Q8HR [facility] Rx#:[id number] Intake, IV Titration 1363.121 397.046 243.661 Amount Furosemide 100 mg In 85.833 84.667 Sodium Chloride 0.9% 90 ml @ 10 MG/HR 10 mls/hr IV .Q10H [facility] Rx#: [id number] Norepinephrine 4 mg In 165.837 111.213 Sodium Chloride 0.9% 250 ml @ 0.03 MCG/KG/MIN 11. 064 mls/hr IV .[id number] [facility] Rx#:[id number] Sodium Chloride 0.9% 1, 1000 000 ml @ 999 mls/hr IV . Q1H1M [facility] Rx#:[id number] propofoL 1,000 mg In 197.284 200 115.434 Empty Bag 1 bag @ 15 MCG/ KG/MIN 8.712 mls/hr IV . [id number] [facility] Rx#:[id number] propofoL 1,000 mg In 43.56 Empty Bag 1 bag @ 15 MCG/ KG/MIN 8.712 mls/hr IV . [id number] [facility] Rx#:[id number] Tube Feeding 400 520 150 Other 60 90 30 Output: Urine 180 295 70 Stool 2 Other: Voiding Method Indwelling Catheter Indwelling Catheter # Bowel Movements 1 1 ABP, PAP, CO, CI - Last Documented Arterial Blood Pressure 131/44 - Labs CBC & Chem 7: 09/22/23 04:41 09/22/23 04:41 Labs: Abnormal Lab Results - Last 24 Hours (Table) 09/21/23 09/21/23 09/21/23 Range/Units 11:59 19:21 23:25 RBC (4.30-5.90) m/uL Hgb (13.0-17.5) gm/dL Hct (39.0-53.0) % MCHC (31.0-37.0) g/dL ABG pH (7.35-7.45) ABG HCO3 (21-25) mmol/L ABG O2 Saturation (94-97) % Chloride (98-107) mmol/L Carbon Dioxide (22-30) mmol/L BUN (9-20) mg/dL Creatinine (0.66-1.25) mg/dL Glucose (74-99) mg/dL POC Glucose (mg/dL) 163 H 171 H 173 H (70-110) mg/dL Calcium (8.4-10.2) mg/dL Alkaline Phosphatase (38-126) U/L Total Protein (6.3-8.2) g/dL Albumin (3.5-5.0) g/dL 09/22/23 09/22/23 09/22/23 Range/Units 04:41 04:41 06:03 RBC 2.77 L (4.30-5.90) m/uL Hgb 8.0 L (13.0-17.5) gm/dL Hct 27.3 L (39.0-53.0) % MCHC 29.4 L (31.0-37.0) g/dL ABG pH 7.24 L (7.35-7.45) ABG HCO3 18 L (21-25) mmol/L ABG O2 Saturation 97.1 H (94-97) % Chloride 119 H (98-107) mmol/L Carbon Dioxide 16 L (22-30) mmol/L BUN 46 H (9-20) mg/dL Creatinine 2.98 H (0.66-1.25) mg/dL Glucose 178 H (74-99) mg/dL POC Glucose (mg/dL) (70-110) mg/dL Calcium 7.2 L (8.4-10.2) mg/dL Alkaline Phosphatase 168 H (38-126) U/L Total Protein 4.2 L (6.3-8.2) g/dL Albumin 1.7 L (3.5-5.0) g/dL 09/22/23 Range/Units 06:10 RBC (4.30-5.90) m/uL Hgb (13.0-17.5) gm/dL Hct (39.0-53.0) % MCHC (31.0-37.0) g/dL ABG pH (7.35-7.45) ABG HCO3 (21-25) mmol/L ABG O2 Saturation (94-97) % Chloride (98-107) mmol/L Carbon Dioxide (22-30) mmol/L BUN (9-20) mg/dL Creatinine (0.66-1.25) mg/dL Glucose (74-99) mg/dL POC Glucose (mg/dL) 190 H (70-110) mg/dL Calcium (8.4-10.2) mg/dL Alkaline Phosphatase (38-126) U/L Total Protein (6.3-8.2) g/dL Albumin (3.5-5.0) g/dL Microbiology - Last 24 Hours (Table) 09/19/23 15:30 Gram Stain - Final Bronchial Washings - Random Bronchial Washings Culture - Final Lisa albicans 09/20/23 14:55 Blood Culture - Preliminary Blood Assessment and Plan Plan: Assessment: 1. Acute kidney injury secondary to ATN secondary to hypotension requiring vasopressor support. Baseline creatinine near 1 and is 2.98 today. Oliguric while on Lasix drip. No hydronephrosis noted on kidney ultrasound. 2. Septic shock secondary to pneumonia on antibiotics. ID following. 3. Metabolic acidosis secondary to acute kidney injury and IV fluids. 4. Acute hypoxic respiratory failure secondary to pneumonia. Intubated. 5. DKA on presentation status post insulin drip. Plan: IV fluids discontinued this morning. Maintain tube feeds. Maintain Lasix drip for now. 2 A of sodium bicarb IV push today. Maintain oral bicarb. With worsening renal function, volume overload and acidosis, initiate renal replacement therapy. Consult vascular surgery for dialysis catheter placement. Plan for first treatment of hemodialysis either today or tomorrow depending on when the catheter is placed. Wean Levophed. Check phosphorus level.
[2023-09-22 11:21] LABS: Nucleated Cells, Body Fluid 2285 /UL
[2023-09-22 11:52] LABS: Glucose,Whole Blood 194 mg/dL (70-110)
--- NOTE | 2023-09-22 13:03 | P.GSCN ---
History of Present Illness Consult date: 09/22/23 Reason for Consult: Temporay HD catheter Requesting physician: Filiberto Mao History of present illness: This is a 67-year-old male admitted in the ICU consulted for temporary hemodialysis catheter for acute kidney injury. HPI is obtained from chart and staff as patient is currently sedated and intubated. He has a past medical history of diabetes mellitus with prior toe amputations, hyperlipidemia, coronary artery disease with cardiac stents and seizure disorder. Patient was apparently found unresponsive was transferred from [facility] [place] on 09/07/2023. He is being admitted and treated for septic shock, metabolic acidosis, acute hypoxic respiratory failure and DKA on presentation. Patient has been followed by nephrology and is having worsening kidney function, vascular surgery consulted for temporary HD catheter placement. Review of Systems ROS unobtainable: due to endotracheal tube Past Medical History Past Medical History: Coronary Artery Disease (CAD), Diabetes Mellitus, Myocardial Infarction (MS), Seizure Disorder Last Myocardial Infarction Date:: unknown History of Any Multi-Drug Resistant Organisms: Unobtainable Past Surgical History: Heart Catheterization With Stent Additional Past Surgical History / Comment(s): shyla big toe removal Date of Last Stent Placement:: unknown Past Psychological History: Unable to Obtain Smoking Status: Never smoker Past Alcohol Use History: None Reported Past Drug Use History: None Reported Medications and Allergies Home Medications Medication Instructions Recorded Confirmed Type Ascorbic Acid [Vitamin C] 500 mg PO BID 09/08/23 09/08/23 History Atorvastatin [Lipitor] 40 mg PO HS 09/08/23 09/08/23 History Cetirizine HCl [Zyrtec] 10 mg PO HS 09/08/23 09/08/23 History Cholecalciferol (Vitamin D3) 1,250 mcg PO WEEKLY 09/08/23 09/08/23 History [Vitamin D3 (1250 Mcg = 50,000 Iu)] Escitalopram [Lexapro] 10 mg PO DAILY 09/08/23 09/08/23 History Furosemide [Lasix] 20 mg PO DAILY 09/08/23 09/08/23 History Potassium Chloride [Klor-Con M10] 10 meq PO DAILY 09/08/23 09/08/23 History levETIRAcetam [Keppra] 500 mg PO Q12HR 09/08/23 09/08/23 History tiZANidine [Zanaflex] 4 mg PO TID 09/08/23 09/08/23 History Amiodarone [Cordarone] 400 mg PO BID tab 09/17/23 Rx Apixaban [Eliquis] 5 mg PO BID tab 09/17/23 Rx Aspirin 81 mg PO DAILY tab 09/17/23 Rx Cholestyramine (with Sugar) 4 gm PO BID@1000,1800 packet 09/17/23 Rx [Questran Packet] Dapagliflozin Propanediol [Farxiga] 10 mg PO DAILY tab 09/17/23 Rx HYDROcodone/APAP 5-325MG [Nunn 1 each PO Q6H PRN #12 tab 09/17/23 Rx 5-325] INSULIN LISPRO (HumaLOG) [humaLOG] 0 unit SQ ACHS #10 ml 09/17/23 Rx Insulin Detemir (Levemir) [Levemir] 15 unit SQ HS each 09/17/23 Rx Ipratropium-Albuterol Nebulize 3 ml INHALATION RT-QID each 09/17/23 Rx [Duoneb 0.5 mg-3 mg/3 ml Soln] Losartan [Cozaar] 25 mg PO DAILY tab 09/17/23 Rx Metoprolol Tartrate [Lopressor] 25 mg PO BID tab 09/17/23 Rx Nystatin 100,000 Unit/gm Oint 1 applic TOPICAL BID each 09/17/23 Rx [Mycostatin Oint] Allergies Allergy/AdvReac Type Severity Reaction Status Date / Time No Known Allergies Allergy Verified 09/08/23 10:10 Surgical - Exam Vital Signs Temp Pulse Resp BP Pulse Ox FiO2 97.6 F 67 22 76/49 97 35 09/07/23 23:09 09/07/23 23:09 09/07/23 23:09 09/07/23 23:09 09/07/23 23:09 09/07/23 23:09 General appearance: The patient is sedated and intubated. HET: Head is normocephalic and atraumatic. Neck: Supple. Heart: Regular. Lungs: Equal expansion, normal respiratory effort. Abdomen: Soft, nontender, nondistended. Extremities: Normal skin color and turgor. Neurological: Sedated and intubated. Results - Labs 09/22/23 04:41 09/22/23 04:41 Abnormal Lab Results - Last 24 Hours (Table) 09/19/23 09/21/23 09/21/23 Range/Units 15:30 19:21 23:25 RBC (4.30-5.90) m/uL Hgb (13.0-17.5) gm/dL Hct (39.0-53.0) % MCHC (31.0-37.0) g/dL ABG pH (7.35-7.45) ABG HCO3 (21-25) mmol/L ABG O2 Saturation (94-97) % Chloride (98-107) mmol/L Carbon Dioxide (22-30) mmol/L BUN (9-20) mg/dL Creatinine (0.66-1.25) mg/dL Glucose (74-99) mg/dL POC Glucose (mg/dL) 171 H 173 H (70-110) mg/dL Calcium (8.4-10.2) mg/dL Alkaline Phosphatase (38-126) U/L Total Protein (6.3-8.2) g/dL Albumin (3.5-5.0) g/dL Fluid Appearance Cloudy A (Clear) Fl[place] 39887 H (0-2000) /uL 09/22/23 09/22/23 09/22/23 Range/Units 04:41 04:41 06:03 RBC 2.77 L (4.30-5.90) m/uL Hgb 8.0 L (13.0-17.5) gm/dL Hct 27.3 L (39.0-53.0) % MCHC 29.4 L (31.0-37.0) g/dL ABG pH 7.24 L (7.35-7.45) ABG HCO3 18 L (21-25) mmol/L ABG O2 Saturation 97.1 H (94-97) % Chloride 119 H (98-107) mmol/L Carbon Dioxide 16 L (22-30) mmol/L BUN 46 H (9-20) mg/dL Creatinine 2.98 H (0.66-1.25) mg/dL Glucose 178 H (74-99) mg/dL POC Glucose (mg/dL) (70-110) mg/dL Calcium 7.2 L (8.4-10.2) mg/dL Alkaline Phosphatase 168 H (38-126) U/L Total Protein 4.2 L (6.3-8.2) g/dL Albumin 1.7 L (3.5-5.0) g/dL Fluid Appearance (Clear) Fluid RBC (0-2000) /uL 09/22/23 09/22/23 Range/Units 06:10 11:49 RBC (4.30-5.90) m/uL Hgb (13.0-17.5) gm/dL Hct (39.0-53.0) % MCHC (31.0-37.0) g/dL ABG pH (7.35-7.45) ABG HCO3 (21-25) mmol/L ABG O2 Saturation (94-97) % Chloride (98-107) mmol/L Carbon Dioxide (22-30) mmol/L BUN (9-20) mg/dL Creatinine (0.66-1.25) mg/dL Glucose (74-99) mg/dL POC Glucose (mg/dL) 190 H 194 H (70-110) mg/dL Calcium (8.4-10.2) mg/dL Alkaline Phosphatase (38-126) U/L Total Protein (6.3-8.2) g/dL Albumin (3.5-5.0) g/dL Fluid Appearance (Clear) Fluid RBC (0-2000) /uL Microbiology - Last 24 Hours (Table) 09/19/23 15:30 Acid Fast Bacilli Smear - Preliminary Bronchial Washings - Random 09/19/23 15:30 Gram Stain - Final Bronchial Washings - Random Bronchial Washings Culture - Final Lisa albicans 09/20/23 14:55 Blood Culture - Preliminary Blood Diabetes panel 09/22/23 Range/Units 04:41 Sodium 145 (137-145) mmol/L Potassium 4.4 (3.5-5.1) mmol/L Chloride 119 H (98-107) mmol/L Carbon Dioxide 16 L (22-30) mmol/L BUN 46 H (9-20) mg/dL Creatinine 2.98 H (0.66-1.25) mg/dL Glucose 178 H (74-99) mg/dL Calcium 7.2 L (8.4-10.2) mg/dL AST 29 (17-59) U/L ALT 11 (4-49) U/L Alkaline Phosphatase 168 H (38-126) U/L Total Protein 4.2 L (6.3-8.2) g/dL Albumin 1.7 L (3.5-5.0) g/dL Thyroid panel 09/22/23 Range/Units 04:41 TSH 0.618 (0.465-4.680) mIU/L Calcium panel 09/22/23 Range/Units 04:41 Calcium 7.2 L (8.4-10.2) mg/dL Albumin 1.7 L (3.5-5.0) g/dL Pituitary panel 09/22/23 09/22/23 Range/Units 04:41 04:41 Sodium 145 (137-145) mmol/L Potassium 4.4 (3.5-5.1) mmol/L Chloride 119 H (98-107) mmol/L Carbon Dioxide 16 L (22-30) mmol/L BUN 46 H (9-20) mg/dL Creatinine 2.98 H (0.66-1.25) mg/dL Glucose 178 H (74-99) mg/dL Calcium 7.2 L (8.4-10.2) mg/dL TSH 0.618 (0.465-4.680) mIU/L Adrenal panel 09/22/23 Range/Units 04:41 Sodium 145 (137-145) mmol/L Potassium 4.4 (3.5-5.1) mmol/L Chloride 119 H (98-107) mmol/L Carbon Dioxide 16 L (22-30) mmol/L BUN 46 H (9-20) mg/dL Creatinine 2.98 H (0.66-1.25) mg/dL Glucose 178 H (74-99) mg/dL Calcium 7.2 L (8.4-10.2) mg/dL Total Bilirubin 0.5 (0.2-1.3) mg/dL AST 29 (17-59) U/L ALT 11 (4-49) U/L Alkaline Phosphatase 168 H (38-126) U/L Total Protein 4.2 L (6.3-8.2) g/dL Albumin 1.7 L (3.5-5.0) g/dL Assessment and Plan Assessment: Acute kidney injury requiring hemodialysis Plan: 1. Hold Lovenox 2. Plan for bedside temporary hemodialysis catheter placement 3. Hemodialysis per recommendations from nephrology Thank you for this consultation, we will continue to follow. The impression and plan of care has been dictated as directed. I performed a history and examination of this patient, discussed the same with the dictator. I agree with the dictator's note ,documented as a scribe. Any additional findings or plans will be noted.
--- NOTE | 2023-09-22 13:26 | P.PN ---
Subjective Progress Note Date: 09/22/23 Principal diagnosis: Progress note dated 09/22/23 67-year-old male with past medical history significant for diabetes mellitus, prior toe amputations, hyperlipidemia, coronary artery disease with previous stents, and seizure disorder who presented to the ED on 09/06 with DKA unresponsive intubated and mechanically ventilated. Patient was admitted to the ICU for DKA, respiratory failure, and MARIANO. He remained in the ICU until 09/12 when he was transferred to the floors. On 09/18 he was scheduled for colonoscopy as well as PEG placement on 09/21. On 09/18 his O2 requirement increased from 2-6L NC. A Team was called and he was reintubated and transferred to the ICU. Patient was evaluated today on 09/18/2023, patient is about the same, continues to have some discomfort in his back and in his rectal area, supposed to have colonoscopy tomorrow. Eliquis remains on hold. Patient has no active pulmonary issues. WBC count is 8.6 hemoglobin 10.2 electrolytes are normal renal profile is normal The patient was seen today September 19, 2023 in follow-up on the [facility]. Today he is found to be weak and obtunded. He is requiring more oxygen currently at 6 L high flow nasal cannula. A rapid response team was called on him. Chest x-ray and ABGs reviewed. He will be transferred to the intensive care unit. Serial blood gases on 100% FiO2 revealed a P O2 of 66, pCO2 of 49 and a pH of 7.32. White count 9.9. Hemoglobin 11.3. Platelets 233. Sodium 143. Potassium 4.5. Bicarb 26. BUN 17. Creatinine 0.87. Glucose 151. The patient has been having concerns of rectal pain and possible rectal mass and the plan was for colonoscopy. However the patient was having ongoing issues with difficulty in swallowing and was being considered for PEG tube placement. This was prior to his change in clinical status. X-ray did reveal a right lower lobe infiltrate with minimal right pleural effusion. Patient was evaluated today on 09/20/2023, patient developed a worsening pulmonary status yesterday, required transfer to the ICU intubation mechanical ventilation. I saw the patient yesterday, he underwent bronchoscopy, lines were placed and the patient, and he was kept on mechanical ventilation overnight. Patient is now on assist-control rate of 24 tidal volume 450 FiO2 was 80% earlier but is now 50%, and PEEP of 10 ABG showed a pO2 of 92 pCO2 47 pH of 7.30 his urine output is 5 to 20 cc/h, however his CVP is low and the patient will require more fluid boluses if no improvement after fluid boluses, then we will give the patient Lasix. In the meantime the patient is requiring propofol at 35 mg/kg/min norepinephrine at 0.06 mg/kg/min IV fluid running at 100 cc/h and the patient is also receiving vital HP at 10 cc/h antibiotics rosario he is receiving Flagyl and Zosyn. Chest x-ray continues to show bilateral infiltrates consistent with most likely aspiration pneumonia. Patient was seen by infectious disease and he is now on Flagyl and ZosynWBC count today is 13 hemoglobin 9.3 basic metabolic profile is normal renal profile showed a BUN of 29 creatinine 1.45 Patient was evaluated today on 09/21/2023, remains in the ICU, intubated and mechanically ventilated. Patient is on assist-control rate of 24 tidal volume 450 FiO2 50% and PEEP of 10 ABG showed a pO2 of 79 pCO2 43 pH of 7.26, apparently the patient developed some metabolic acidosis associated with acute kidney injury, and I have recommended 1 amp of bicarb to be given and sodium bi carb to be given orally and I also recommended nephrology evaluation on this patient as his renal status seems to be getting worse and the patient is having less and less urine output. CVP is around 7 patient will receive more fluids today, may consider Lasix depending on the response to fluid boluses. Urine output is extremely low. And again his renal functioning is getting worse. Patient remains on propofol at 50 mcg/kg/min he is also on norepinephrine at 0.03 mcg/kg/min, patient is receiving Glucerna 1.5/enteral feeding, patient remains on Lovenox 80 mg SQ twice daily, he is also on Zosyn and Flagyl. Chest x-ray continues to show bilateral infiltrates. Improved compared to his initial chest x-ray but nonetheless considered to be significant airspace disease bilaterally. Microbiology from the bronchial washing/lavage, showed mostly Lisa, Gram stains and cultures from previous sputum from 09/08/2023 showed E. coli Staph aureus and Streptococcus agalactiae Patient was evaluated today on 09/22/2023, remains in the ICU, intubated and mechanically ventilated. He is on propofol 25 mcg/kg/min, Levophed 0.09 mcg/kg/min, and .9 NS IVF at 10cc/h patient is on assist-control rate of 24 tidal volume 450 FiO2 50% and PEEP of 10. ABG shows pH 7.24 pCO2 42 and pO2 of 97. Patient exhibits normal anion gap metabolic acidosis. Sodium 145, potassium 4.4, chloride 119, CO2 16, BUN 46, creatinine 2.98, glucose 178, and albumin 1.7. He received Sodium bicarb orally, 1amp IVP bicarb, and 80 mg Lasix as per nephrology's recommendation due to patient's poor urine output despite fluids and Lasix. Renal ultrasound showed no hydronephrosis and a left renal cyst. X-ray shows worsening bibasilar infiltrates. Bronchial washings showed Lisa albicans. He is on Zosyn 25ml/hr. Objective - Vital Signs Vital signs: Vital Signs Temp 98.1 F 09/22/23 08:00 Pulse 71 09/22/23 10:00 Resp 27 H 09/22/23 10:00 BP 128/62 09/22/23 10:00 Pulse Ox 96 09/22/23 10:00 FiO2 50 09/22/23 10:00 Intake & Output 09/21/23 09/22/23 09/22/23 18:59 06:59 18:59 Intake Total 3262.121 2373.046 788.661 Output Total 180 295 72 Balance 3082.121 2078.046 716.661 Intake: IV 1439 1366 365 0.9 sodium chloride 1200 1200 220 Furosemide 100 mg In 30 Sodium Chloride 0.9% 90 ml @ 10 MG/HR 10 mls/hr IV .Q10H [facility] Rx#: [id number] Piperacillin-Tazobactam 3 100 100 100 .375 gm In Sodium Chloride 0.9% 100 ml @ 25 mls/hr IVPB Q8HR [facility] Rx# :[id number] Pressure Bag 39 66 15 metroNIDAZOLE-NS PMX 500 100 mg In Saline 1 100ml.bag @ 100 mls/hr IVPB Q8HR [facility] Rx#:[id number] Intake, IV Titration 1363.121 397.046 243.661 Amount Furosemide 100 mg In 85.833 84.667 Sodium Chloride 0.9% 90 ml @ 10 MG/HR 10 mls/hr IV .Q10H [facility] Rx#: [id number] Norepinephrine 4 mg In 165.837 111.213 Sodium Chloride 0.9% 250 ml @ 0.03 MCG/KG/MIN 11. 064 mls/hr IV .[id number] [facility] Rx#:[id number] Sodium Chloride 0.9% 1, 1000 000 ml @ 999 mls/hr IV . Q1H1M [facility] Rx#:[id number] propofoL 1,000 mg In 197.284 200 115.434 Empty Bag 1 bag @ 15 MCG/ KG/MIN 8.712 mls/hr IV . [id number] [facility] Rx#:[id number] propofoL 1,000 mg In 43.56 Empty Bag 1 bag @ 15 MCG/ KG/MIN 8.712 mls/hr IV . [id number] [facility] Rx#:[id number] Tube Feeding 400 520 150 Other 60 90 30 Output: Urine 180 295 70 Stool 2 Other: Voiding Method Indwelling Catheter Indwelling Catheter # Bowel Movements 1 1 ABP, PAP, CO, CI - Last Documented Arterial Blood Pressure 131/44 - Exam GENERAL EXAM: 67-year-old white male intubated, mechanically ventilated, sedated, not in distress, generally edematous in all 4 extremities Endotracheal tube and orogastric tube are intact. HEAD: Normocephalic and atraumatic EYES: Within normal NOSE: Clear with pink turbinates. THROAT: No erythema or exudates. Dry mucous membranes. NECK: No masses, no JVD. Subclavian central line is noted. CHEST: No chest wall deformity. LUNGS: Good breath sound bilaterally mostly diminished at the bases no crackles rhonchi or wheezes CVS: S1 and S2 normal with no soft systolic murmur, regular rhythm. No extra heart sounds ABDOMEN: Abdomen flat, active bowel sounds, no hepatosplenomegaly, no guarding or rigidity. SKIN: No rashes CENTRAL NERVOUS SYSTEM: Could not assess patient is sedated intubated mechanically ventilated Theatric: Could not assess EXTREMITIES: no clubbing, no cyanosis, trace bipedal edema. - Labs CBC & Chem 7: 09/22/23 04:41 09/22/23 04:41 Labs: Abnormal Lab Results - Last 24 Hours (Table) 09/21/23 09/21/23 09/21/23 Range/Units 11:59 19:21 23:25 RBC (4.30-5.90) m/uL Hgb (13.0-17.5) gm/dL Hct (39.0-53.0) % MCHC (31.0-37.0) g/dL ABG pH (7.35-7.45) ABG HCO3 (21-25) mmol/L ABG O2 Saturation (94-97) % Chloride (98-107) mmol/L Carbon Dioxide (22-30) mmol/L BUN (9-20) mg/dL Creatinine (0.66-1.25) mg/dL Glucose (74-99) mg/dL POC Glucose (mg/dL) 163 H 171 H 173 H (70-110) mg/dL Calcium (8.4-10.2) mg/dL Alkaline Phosphatase (38-126) U/L Total Protein (6.3-8.2) g/dL Albumin (3.5-5.0) g/dL 09/22/23 09/22/23 09/22/23 Range/Units 04:41 04:41 06:03 RBC 2.77 L (4.30-5.90) m/uL Hgb 8.0 L (13.0-17.5) gm/dL Hct 27.3 L (39.0-53.0) % MCHC 29.4 L (31.0-37.0) g/dL ABG pH 7.24 L (7.35-7.45) ABG HCO3 18 L (21-25) mmol/L ABG O2 Saturation 97.1 H (94-97) % Chloride 119 H (98-107) mmol/L Carbon Dioxide 16 L (22-30) mmol/L BUN 46 H (9-20) mg/dL Creatinine 2.98 H (0.66-1.25) mg/dL Glucose 178 H (74-99) mg/dL POC Glucose (mg/dL) (70-110) mg/dL Calcium 7.2 L (8.4-10.2) mg/dL Alkaline Phosphatase 168 H (38-126) U/L Total Protein 4.2 L (6.3-8.2) g/dL Albumin 1.7 L (3.5-5.0) g/dL 09/22/23 Range/Units 06:10 RBC (4.30-5.90) m/uL Hgb (13.0-17.5) gm/dL Hct (39.0-53.0) % MCHC (31.0-37.0) g/dL ABG pH (7.35-7.45) ABG HCO3 (21-25) mmol/L ABG O2 Saturation (94-97) % Chloride (98-107) mmol/L Carbon Dioxide (22-30) mmol/L BUN (9-20) mg/dL Creatinine (0.66-1.25) mg/dL Glucose (74-99) mg/dL POC Glucose (mg/dL) 190 H (70-110) mg/dL Calcium (8.4-10.2) mg/dL Alkaline Phosphatase (38-126) U/L Total Protein (6.3-8.2) g/dL Albumin (3.5-5.0) g/dL Microbiology - Last 24 Hours (Table) 09/19/23 15:30 Gram Stain - Final Bronchial Washings - Random Bronchial Washings Culture - Final Lisa albicans 09/20/23 14:55 Blood Culture - Preliminary Blood - Imaging and Cardiology Chest x-ray: image reviewed Assessment and Plan Assessment: Acute hypoxic respiratory failure secondary to aspiration pneumonia s/p reintubation on 09/19/23 Aspiration PNA Left lower lobe sputum culture(E.coli, MSSA, Group B Strep) Hypotension due to suspected septic shock from pneumonia Acute kidney injury Malnutrition with severe hypoalbuminemia Anasarca secondary to hypoalbuminemia Normal anion gap metabolic acidosis Acute DKA resolved Hx of Type 2 DM Hx of B/L great toe amputations HX of Hyperlipidemia Hx of CAD with previous stent Hx of seizure disorder Plan Continue ventilator suppot Continue IVF at 10/hr and Lasix for diuresis if no improvement then HD Continue hemodynamic support with levophed Follow up on cortisol & TSH levels to r/o hypothyroidism & adrenal insufficiency Continue GI and DVT prophylaxis Continue enteral feeding/nutritional support Continue Levemir insulin and sliding scale/NovoLog insulin Patient is critically ill, prognosis is relatively guarded Patient is critically ill and critical care time is over 30 Will continue to follow Time with Patient: Greater than 30
--- NOTE | 2023-09-22 14:21 | P.PCN ---
Date of Procedure: 09/22/23 Preoperative Diagnosis: Acute renal failure Postoperative Diagnosis: same Procedure(s) Performed: Ultrasound guided right common femoral vein temporary dialysis catheter placement Surgeon: Barry Stephenson Estimated Blood Loss (ml): 5 Pathology: none sent Condition: stable Disposition: ICU Description of Procedure: The right groin was prepped and draped with Betadine. Using ultrasound the right common femoral vein was located and shown to be patent and compressible. Micropuncture made under ultrasound guidance at the right femoral vein. Guidewire was passed. Dilator advanced on top of the guidewire. Right femoral catheter 16cm straight was then guided over the wire and wire was removed. Ports were assessed and toshia and flushed easily. The catheter was sutured in place and dressing applied. The patient tolerated the procedure well.
--- NOTE | 2023-09-22 17:20 | P.PN ---
Subjective Progress Note Date: 09/22/23 Principal diagnosis: Reason for follow-up is fever Patient is a 67-year-old male with a past medical history significant for coronary disease diabetes mellitus [place] seizure disorder history of diabetic foot infection status post bilateral big toe amputation presenting to the hospital with unresponsiveness patient was initially hypothermic subsequently started spiking fever initial workup with a chest x-ray and urine was negative. On today's evaluation that is 09/22/2023,the patient did have resolution of his fever and the patient has been afebrile this morning patient is hemodynamically stable patient is currently on 50% FiO2 no significant purulent secretions th rough the ET or any other changes reported by nursing staff. Patient white count is 9.1, creatinine is 2.98 blood culture repeat negative so far Objective - Vital Signs Vital signs: Vital Signs Temp 98.5 F 09/22/23 11:45 Pulse 76 09/22/23 12:15 Resp 27 H 09/22/23 12:15 BP 131/63 09/22/23 12:15 Pulse Ox 96 09/22/23 12:15 FiO2 50 09/22/23 12:15 Intake & Output 09/21/23 09/22/23 09/22/23 18:59 06:59 18:59 Intake Total 3262.121 2373.046 1053.557 Output Total 180 295 87 Balance 3082.121 2078.046 966.557 Weight 96.8 kg Intake: IV 1439 1366 388 0.9 sodium chloride 1200 1200 230 Furosemide 100 mg In 40 Sodium Chloride 0.9% 90 ml @ 10 MG/HR 10 mls/hr IV .Q10H [facility] Rx#: [id number] Piperacillin-Tazobactam 3 100 100 100 .375 gm In Sodium Chloride 0.9% 100 ml @ 25 mls/hr IVPB Q8HR [facility] Rx# :[id number] Pressure Bag 39 66 18 metroNIDAZOLE-NS PMX 500 100 mg In Saline 1 100ml.bag @ 100 mls/hr IVPB Q8HR [facility] Rx#:[id number] Intake, IV Titration 1363.121 397.046 435.557 Amount Furosemide 100 mg In 85.833 84.667 Sodium Chloride 0.9% 90 ml @ 10 MG/HR 10 mls/hr IV .Q10H [facility] Rx#: [id number] Norepinephrine 4 mg In 165.837 111.213 122.630 Sodium Chloride 0.9% 250 ml @ 0.03 MCG/KG/MIN 11. 064 mls/hr IV .[id number] [facility] Rx#:[id number] Sodium Chloride 0.9% 1, 1000 000 ml @ 999 mls/hr IV . Q1H1M [facility] Rx#:[id number] propofoL 1,000 mg In 197.284 200 115.434 Empty Bag 1 bag @ 15 MCG/ KG/MIN 8.712 mls/hr IV . [id number] [facility] Rx#:[id number] propofoL 1,000 mg In 112.826 Empty Bag 1 bag @ 15 MCG/ KG/MIN 8.712 mls/hr IV . [id number] [facility] Rx#:[id number] Tube Feeding 400 520 200 Other 60 90 30 Output: Urine 180 295 85 Stool 2 Other: Voiding Method Indwelling Catheter Indwelling Catheter # Bowel Movements 1 1 ABP, PAP, CO, CI - Last Documented Arterial Blood Pressure 128/43 - Exam GENERAL DESCRIPTION: An elderly male intubated on the vent RESPIRATORY SYSTEM: Unlabored breathing , decreased breath sounds at bases HEART: S1 S2 regular rate and rhythm , ABDOMEN: Soft , no tenderness EXTREMITIES: No edema feet - Labs CBC & Chem 7: 09/22/23 04:41 09/22/23 04:41 Labs: Abnormal Lab Results - Last 24 Hours (Table) 09/19/23 09/21/23 09/21/23 Range/Units 15:30 19:21 23:25 RBC (4.30-5.90) m/uL Hgb (13.0-17.5) gm/dL Hct (39.0-53.0) % MCHC (31.0-37.0) g/dL ABG pH (7.35-7.45) ABG HCO3 (21-25) mmol/L ABG O2 Saturation (94-97) % Chloride (98-107) mmol/L Carbon Dioxide (22-30) mmol/L BUN (9-20) mg/dL Creatinine (0.66-1.25) mg/dL Glucose (74-99) mg/dL POC Glucose (mg/dL) 171 H 173 H (70-110) mg/dL Calcium (8.4-10.2) mg/dL Alkaline Phosphatase (38-126) U/L Total Protein (6.3-8.2) g/dL Albumin (3.5-5.0) g/dL Fluid Appearance Cloudy A (Clear) Fluid RBC 93125 H (0-1999) /uL 09/22/23 09/22/23 09/22/23 Range/Units 04:41 04:41 06:03 RBC 2.77 L (4.30-5.90) m/uL Hgb 8.0 L (13.0-17.5) gm/dL Hct 27.3 L (39.0-53.0) % MCHC 29.4 L (31.0-37.0) g/dL ABG pH 7.24 L (7.35-7.45) ABG HCO3 18 L (21-25) mmol/L ABG O2 Saturation 97.1 H (94-97) % Chloride 119 H (98-107) mmol/L Carbon Dioxide 16 L (22-30) mmol/L BUN 46 H (9-20) mg/dL Creatinine 2.98 H (0.66-1.25) mg/dL Glucose 178 H (74-99) mg/dL POC Glucose (mg/dL) (70-110) mg/dL Calcium 7.2 L (8.4-10.2) mg/dL Alkaline Phosphatase 168 H (38-126) U/L Total Protein 4.2 L (6.3-8.2) g/dL Albumin 1.7 L (3.5-5.0) g/dL Fluid Appearance (Clear) Fluid RBC (0-1999) /uL 09/22/23 09/22/23 Range/Units 06:10 11:49 RBC (4.30-5.90) m/uL Hgb (13.0-17.5) gm/dL Hct (39.0-53.0) % MCHC (31.0-37.0) g/dL ABG pH (7.35-7.45) ABG HCO3 (21-25) mmol/L ABG O2 Saturation (94-97) % Chloride (98-107) mmol/L Carbon Dioxide (22-30) mmol/L BUN (9-20) mg/dL Creatinine (0.66-1.25) mg/dL Glucose (74-99) mg/dL POC Glucose (mg/dL) 190 H 194 H (70-110) mg/dL Calcium (8.4-10.2) mg/dL Alkaline Phosphatase (38-126) U/L Total Protein (6.3-8.2) g/dL Albumin (3.5-5.0) g/dL Fluid Appearance (Clear) Fluid RBC (0-2000) /uL Microbiology - Last 24 Hours (Table) 09/19/23 15:30 Acid Fast Bacilli Smear - Preliminary Bronchial Washings - Random 09/19/23 15:30 Gram Stain - Final Bronchial Washings - Random Bronchial Washings Culture - Final Lisa albicans 09/20/23 14:55 Blood Culture - Preliminary Blood Assessment and Plan (1) Fever Current Visit: Yes Status: Acute Code(s): R50.9 - FEVER, UNSPECIFIED SNOMED Code(s): 709989549 (2) Pneumonia Current Visit: Yes Status: Acute Code(s): J18.9 - PNEUMONIA, UNSPECIFIED ORGANISM SNOMED Code(s): 469683264 (3) Diarrhea Current Visit: Yes Status: Acute Code(s): R19.7 - DIARRHEA, UNSPECIFIED SNOMED Code(s): 12569196 Plan: 1patient with an episode of less responsiveness and concern for possible aspiration but the patient has been transferred back to the ICU patient is status post bronchoscopy and cultures are currently growing Lisa albicans 2patient did have resolution of his fever and the patient white count has normalized, 3-patient to continue with Zosyn apparently getting dialysis catheter for his kidney function vascular surgery on the case Dictation was produced using [employer] dictation software. please excuse any grammatical, word or spelling errors. Time with Patient: Less than 30
--- NOTE | 2023-09-22 18:00 | P.PN ---
Subjective Progress Note Date: 09/22/23 09/22/2023: Patient was seen for a follow-up. Patient is intubated, sedated. Currently running propofol 60 mcg/kg/min. Patient also on norepinephrine 0.07 mcg/kg/min. Also on Lasix at 10 mg/h and IV fluids. Patient is critically sick. 09/19/2023: Patient was seen for a follow-up. Apparently at 11:48 AM an A-team was called, after patient was found to be unresponsive. Patient's oxygen demand was increasing. Patient's pCO2 was 64. Patient was intubated and then transfer red to ICU. At present patient is on propofol 20 mcg/kg/min. Patient could not undergo colonoscopy that was scheduled for today. 09/18/2023: Patient was seen for a follow-up. Patient laying in the bed. Continues to have rectal pain 10/10. Patient complains of difficulty breathing. Informed the nurse to report to primary physician. 09/17/2023: Patient was seen for a follow-up. Patient states he continues to have pain in the rectal region 10/10. No other concerns. 09/16/2023: Patient was initially seen by Dr. Edvin Espinoza. Please refer to his note for details. Patient is a 67-year-old male with acute DKA. EEG was negative for seizures. Patient has history of seizures and takes Keppra. Patient had fever but appears to be from aspiration pneumonia. Infectious disease had recommended lumbar puncture but patient had refused. Mentation is improving. Patient was seen for a follow-up. Patient is laying in the bed. States feeling "not good". Patient complaining of very severe pain involving his "butt and back". He points that to between his buttocks, perhaps in the rectal region. He claims the pain is "bad", rates 10/10. He states he cannot even sit as it hurts so bad. He could not even turn to show me where the exact pain is. He denies any headache. He is fully oriented as mentioned below. Patient states regarding his bowel movement, he cannot tell as much when it is coming. Some of the work-up during this hospital visit consisted of: Patient is afebrile. Patient only had temperature of 100.2 the day after admission 09/13/2023. wbc has been normal. He has thrombocytopenia, now resolved TSH is 1.350 clinically ammonia level is less than 9 CK level is 882-->214 Vitamin B12: [address] of the head is reported as no acute intracranial hemorrhage or midline shift. There is mild diffuse age-related cerebral atrophy and mild to moderate probable chronic small vessel ischemic change redemonstrated. No significant change from most recent prior CT. Personally reviewed the CT and I agree there is no acute or subacute ischemia. Echo is reported as technically difficult study. Limited study. Overall left ventricle systolic function moderately impaired. Routine EEG: Is abnormal. The background slowing is suggestive of severe encephalopathy likely due to toxic-metabolic derrangement. Otherwise, there is no focal slowing, epileptiform discharges or seizure on the EEG. Blood culture is E. Coli, staph aureus and Strep agalctiae CXR: Similar patch density medial left base. Increasing patchy atelectasis/infiltrate at right base. Objective - Vital Signs Vital signs: Vital Signs Temp 98.8 F 09/22/23 17:00 Pulse 75 09/22/23 17:30 Resp 26 H 09/22/23 17:30 BP 128/60 09/22/23 17:30 Pulse Ox 97 09/22/23 17:30 FiO2 50 09/22/23 17:30 Intake & Output 09/21/23 09/22/23 09/22/23 18:59 06:59 18:59 Intake Total 3262.121 2373.046 2138.731 Output Total 240 103 5506 Balance 3082.121 2078.046 631.731 Weight 96.8 kg Intake: IV 1439 1366 626 0.9 sodium chloride 1200 1200 290 Furosemide 100 mg In 100 Sodium Chloride 0.9% 90 ml @ 10 MG/HR 10 mls/hr IV .Q10H [facility] Rx#: [id number] Piperacillin-Tazobactam 3 100 100 200 .375 gm In Sodium Chloride 0.9% 100 ml @ 25 mls/hr IVPB Q8HR [facility] Rx# :[id number] Pressure Bag 39 66 36 metroNIDAZOLE-NS PMX 500 100 mg In Saline 1 100ml.bag @ 100 mls/hr IVPB Q8HR [facility] Rx#:[id number] Intake, IV Titration 1363.121 397.046 522.731 Amount Furosemide 100 mg In 85.833 84.667 Sodium Chloride 0.9% 90 ml @ 10 MG/HR 10 mls/hr IV .Q10H [facility] Rx#: [id number] Norepinephrine 4 mg In 165.837 111.213 122.630 Sodium Chloride 0.9% 250 ml @ 0.03 MCG/KG/MIN 11. 064 mls/hr IV .[id number] [facility] Rx#:[id number] Sodium Chloride 0.9% 1, 1000 000 ml @ 999 mls/hr IV . Q1H1M [facility] Rx#:[id number] propofoL 1,000 mg In 197.284 200 115.434 Empty Bag 1 bag @ 15 MCG/ KG/MIN 8.712 mls/hr IV . [id number] [facility] Rx#:[id number] propofoL 1,000 mg In 200.000 Empty Bag 1 bag @ 15 MCG/ KG/MIN 8.712 mls/hr IV . [id number] [facility] Rx#:[id number] Tube Feeding 400 520 500 Hemodialysis 400 Other 60 90 90 Output: Urine 180 295 105 Stool 2 Hemodialysis 1400 Other: Voiding Method Indwelling Catheter Indwelling Catheter # Bowel Movements 1 1 ABP, PAP, CO, CI - Last Documented Arterial Blood Pressure 148/45 - Exam 09/22/2023: Patient is intubated, on propofol 60 mcg/kg/min. Patient is very obtunded. Pupils are equal, round and reacting. No obvious seizure-like activity noted. Patient has significant peripheral edema. 09/19/2023: Patient is intubated, on propofol 20 mcg/kg/min. Patient is very obtunded. Pupils are equal, round and reacting. No obvious seizure-like act ivity noted. 09/18/2023: Patient is alert and awake fairly well-oriented. He knows it is September 2023 and that he has not a hospital in [place] in [place]. Speech and langu age functions are normal. His cranial nerves are normal. Visual thomas are full. Face is symmetric. On muscle strength testing (right/left) deltoid 4/4, biceps 4+/4+, triceps 4+/4+5-, advertisement distributor 4+/4+, hip flexion 2/2, ankle dorsiflexion 1-2/1-2. Reflexes are absent all over. He has amputated big toes bilaterally. - Labs CBC & Chem 7: 09/22/23 04:41 09/22/23 04:41 Labs: Abnormal Lab Results - Last 24 Hours (Table) 09/19/23 09/21/23 09/21/23 Range/Units 15:30 19:21 23:25 RBC (4.30-5.90) m/uL Hgb (13.0-17.5) gm/dL Hct (39.0-53.0) % MCHC (31.0-37.0) g/dL ABG pH (7.35-7.45) ABG HCO3 (21-25) mmol/L ABG O2 Saturation (94-97) % Chloride (98-107) mmol/L Carbon Dioxide (22-30) mmol/L BUN (9-20) mg/dL Creatinine (0.66-1.25) mg/dL Glucose (74-99) mg/dL POC Glucose (mg/dL) 171 H 173 H (70-110) mg/dL Calcium (8.4-10.2) mg/dL Phosphorus (2.5-4.5) mg/dL Alkaline Phosphatase (38-126) U/L Total Protein (6.3-8.2) g/dL Albumin (3.5-5.0) g/dL Fluid Appearance Cloudy A (Clear) Fl[place] [address]48 H (0-2000) /uL 09/22/23 09/22/23 09/22/23 Range/Units 04:41 04:41 06:03 RBC 2.77 L (4.30-5.90) m/uL Hgb 8.0 L (13.0-17.5) gm/dL Hct 27.3 L (39.0-53.0) % MCHC 29.4 L (31.0-37.0) g/dL ABG pH 7.24 L (7.35-7.45) ABG HCO3 18 L (21-25) mmol/L ABG O2 Saturation 97.1 H (94-97) % Chloride 119 H (98-107) mmol/L Carbon Dioxide 16 L (22-30) mmol/L BUN 46 H (9-20) mg/dL Creatinine 2.98 H (0.66-1.25) mg/dL Glucose 178 H (74-99) mg/dL POC Glucose (mg/dL) (70-110) mg/dL Calcium 7.2 L (8.4-10.2) mg/dL Phosphorus (2.5-4.5) mg/dL Alkaline Phosphatase 168 H (38-126) U/L Total Protein 4.2 L (6.3-8.2) g/dL Albumin 1.7 L (3.5-5.0) g/dL Fluid Appearance (Clear) Fluid RBC (0-2000) /uL 09/22/23 09/22/23 09/22/23 Range/Units 06:10 11:49 14:15 RBC (4.30-5.90) m/uL Hgb (13.0-17.5) gm/dL Hct (39.0-53.0) % MCHC (31.0-37.0) g/dL ABG pH (7.35-7.45) ABG HCO3 (21-25) mmol/L ABG O2 Saturation (94-97) % Chloride (98-107) mmol/L Carbon Dioxide (22-30) mmol/L BUN (9-20) mg/dL Creatinine (0.66-1.25) mg/dL Glucose (74-99) mg/dL POC Glucose (mg/dL) 190 H 194 H (70-110) mg/dL Calcium (8.4-10.2) mg/dL Phosphorus 5.5 H (2.5-4.5) mg/dL Alkaline Phosphatase (38-126) U/L Total Protein (6.3-8.2) g/dL Albumin (3.5-5.0) g/dL Fluid Appearance (Clear) Fluid RBC (0-2000) /uL Microbiology - Last 24 Hours (Table) 09/19/23 15:30 Acid Fast Bacilli Smear - Preliminary Bronchial Washings - Random 09/19/23 15:30 Gram Stain - Final Bronchial Washings - Random Bronchial Washings Culture - Final Lisa albicans 09/20/23 14:55 Blood Culture - Preliminary Blood Assessment and Plan Assessment: Altered Mental status, likely due to metabolic encephalopathy. Patient's encephalopathy had resolved, but now seems to have got worse again. Patient was found unresponsive earlier today at 11:48 AM, re-intubated and transferred to ICU. Hypoxemia, with elevated PCO2 64. New onset severe pain in the rectal region, CT pelvis showing wall thickening of the rectum/sigmoid colon. Rule out mass lesion. 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 Plan: Patient has been re-intubated, and transferred to ICU. Patient had [address] head performed, most recent on 09/19/2023, which are negative for acute process. EEG had revealed severe encephalopathy but no seizure or discharges appreciated Is on home dose of Keppra 500 mg twice a day. Patient is on aspirin 81 mg and Lipitor 40 mg nightly. Patient denies headache (prior to intubation). No indication for lumbar puncture. Patient was complaining of severe pain in the rectal region. This prompted testing as below. CT of the lumbar spine showed no evidence for spinal fracture. Moderate degeneration changes of the spine without evidence for significant spinal canal stenosis. Moderate bilateral L5-S1 and L4-L5 neural foraminal stenosis. Bilateral lung base consolidation possibly representing atelectasis with superimposed infection not excluded. Trace pleural effusion. CT of the pelvis revealed circumferential wall thickening of the rectum/sigmoid colon, correlate for proctitis. Prominent mesenteric lymph nodes around the rectum also present. Direct visualization if not recently performed recommended to rule out mass. Colonic diverticulosis. Fat-containing right inguinal hernia, no evidence of fracture. Mild to moderate bilateral hip osteoarthrosis and moderate degeneration changes of the spine. Surgery input appreciated. Colonoscopy was scheduled for 09/19/2023, but patient was not able to undergo appropriate preparation for colonoscopy therefore canceled. Thrombocytopenia has resolved. Patient's platelets are 193. Patient was on Eliquis 5 mg twice daily, but currently on hold because of upcoming colonoscopy in the morning. Hemoglobin A1c 11.9, consistent with poorly controlled diabetes. Recommend optimize control of diabetes to target A1c <7.0. B12 1686, TSH 1.35, CK 81 Patient is intubated, sedated, has multiple medical issues. Patient is undergoing dialysis for acute kidney injury. Neurology will sign off. Please reconsult neurology if any concerns. Dr. Espinoza starting neurology service from the morning.
[2023-09-22 18:09] LABS: Glucose,Whole Blood 176 mg/dL (70-110)
--- NOTE | 2023-09-22 18:46 | P.PN ---
Subjective Progress Note Date: 09/22/23 H&P Date: 09/08/23 Chief Complaint: DKA, hypotension, shock This is a 67-year-old gentleman with past medical history significant for diabetes mellitus, bilateral great toe amputations, CAD, NH, seizure disorder,intubated in the field, transferred from [place] [facility], admitted with significant DKA, hypotension, shock and multiple other medical issues. C urrently in the ICU, remains vent dependent on 35% FiO2 +5 of PEEP. Maintained on Levophed, bicarb, vasopressin, amiodarone and insulin drips as well as D5.45 NS IV fluids. Requiring Flores hugger. Patient has not seen PCP since June 2022, had proceeded to live at [facility] in [place]. ICU staff reports significant other reported that patient became unhappy living at the [facility], came to live with her, patient was sick for approximately 4 days and she discovered him unresponsive on her couch. Unresponsive with the exception of winces at noxious stimuli, no spontaneous eye-opening. Brain CT reported no acute intracranial hemorrhage or midline shift, mild diffuse age- related cerebral atrophy and moderate probable chronic small vessel ischemic change redemonstrated. ABGs on arrival reported pH 7.04, pCO2 25, pO2 204, bicarb 7, total CO2 8, O2 sat 99.7, base excess -22.6 on 35% FiO2. chest x-ray reported lungs clear, no infiltrates, cardiac silhouette size within normal limits. Outside toxicology reported as negative;serum alcohol less than 10. received 3 L crystalloids, 1 L saline bolus, 2 g bicarb in the ER with pressors initiated. Procalcitonin 0.29, WBC count 8.0, hemoglobin 14.4, platelets 127,Sodium 143,151, potassium 5.2, 3.2, chloride 115,124, bicarb less than 5, 18, anion gap unmeasurable, 9, BUN 134, 110, creatinine 4.29, 2.76, glucose 910, 332. Lactic 1.1. LFTs WNL. Ammonia less than 9. CPK 882, 1068. Troponin 0.084. NT BNP 2720. EKG reported normal sinus rhythm. UA positive for hyaline casts, ketones ,glucose, and protein. Negative for nitrates. No seizure activity reported. 09/09/2023 paroxysmal atrial fibrillation with RVR, maintained on amiodarone drip ,telemetry currently sinus rhythm. vasopressors weaned off late last night. Remains ventilator dependent with FiO2 35%/+5 of PEEP. Chest x-ray reported suspected underlying COPD, mild patchy medial basilar densities, likely atelectasis .echo reporting technically difficult study , moderately impaired LV function EF of 40-45%. Hemoglobin A1c 11.9. Continues on insulin drip. Anion gap 6, bicarb 17, blood sugars better controlled. Sodium 150, potassium 3.3 renal function improving, BUN 88, creatinine 1.9. Preliminary sputum culture growing gram-negative bacilli, presumptive Staph aureus, blood cultures in progress. Maxipime initiated. Brain CT repeated last night reporting no significant change from most recent prior CT. remains off of sedation, grimacin g to noxious stimuli. 09/10/2023 EEG reported abnormal, background slowing suggestive of severe ence phalopathy likely due to toxic metabolic derangement. Otherwise there is no focal slowing, epileptiform discharges or seizures on the EEG. Continues on Keppra -no seizure activity. Not following commands. Staff reports patient is opening eyes to voice. Grimaces to pain. Remains off pressors and vent dependent with FiO2 35%/+5 of PEEP. Chest x-ray pending. Tmax 100.3, normal WBC. Hemoglobin 11.4, platelets 49 . sputum culture reporting E. coli, Staphylococcus aureus/MSSA, strep agalactiae group B. Maintained on cefepime. Receiving IV fluid hydration of half-normal saline , sodium 152, chloride 128. renal function improving. bicarb 16, BUN 64, creatinine 1.46. On tube feeds of Glucerna ,blood sugars in the mid to low 200s, A1c 11.9. 09/15/2023 telemetry sinus rhythm. Continues on amiodarone, Farxiga. Anticoagulated on Eliquis. Confused this morning, alert and oriented to person, knows he is in the hospital but thinks he is in [place], [place]. Maintaining O2 sat of 94% on 2 L nasal cannula on cefepime and nebulized bronchodilators. Choking on applesauce during speech therapy's evaluation, modified barium swallow ordered. Blood sugars in the low 200s during the night, better controlled this morning, 132. Hemoglobin A1c 11.9. 09/16/2023 MBS results noted-speech therapy recommending ground meats, nectar liquids, no straw, liquids from cup, small bites and sips with direct supervision , sitting upright 90 degrees and ongoing speech therapy. O2 sats improved, 97% on 2 L nasal cannula. Maintained on cefepime as per ID, afebrile, normal WBC. Hemoglobin 10, platelets 146. Potassium 2.9-supplementation and magnesium level ordered. Blood sugars better controlled. Renal function stable. Telemetry sinus rhythm. PT pending. 09/17/2023 Maintained on cefepime.yesterday Ochoa catheter discontinued but patient developed urinary retention and Ochoa catheter reinserted .ongoing lower back and rectal pain. lumbar CT reported no evidence for spinal fracture, mo derate degeneration changes without evidence for significant spinal canal stenosis, moderate bilateral L5-S1 and L4-L5 neuroforaminal stenosis, bilateral lung consolidation possibly representing atelectasis with superimposed infection not excluded, trace right pleural effusion. Pelvis CT reporting circumferential wall thickening of the rectum/sigmoid colon , prominent mesenteric lymph nodes around the rectum also present direct visualization recommended to rule out mass, colonic diverticulosis, fat-containing right inguinal hernia, no evidence of fracture, mild to moderate bilateral hip osteoarthrosis and moderate degenerative changes of the spine. Vague historian, unsure of last colonoscopy. Denies nausea vomiting. Potassium 3.5-supplemented, renal function stable. 09/18/2023 continues to complain of back and rectal pain. Eliquis remains on hold, general surgery discussing colonoscopy for tomorrow. Renal function stable, Hemoglobin 10.2, platelets 193. Blood sugars controlled. 09/19/2023 Eliquis remains on hold. Patient initially was scheduled for colonoscopy today. patient developed increased difficulty swallowing, bowel prep and colonoscopy canceled by general surgery. General surgery scheduled patient for PEG tube placement for Friday. oxygen requirement increased from 2 to 6 L nasal cannula. Spotcheck reported O2 sat of 93% on 6 L nasal cannula. Chest x- ray from last night reported right lower lobe infiltrate, minimal right pleural effusion. As the morning progressed, respiratory status declined, BiPAP and ABGs ordered. Upon entering the room to apply BiPAP, patient unresponsive and A team called, intubated and transferred to ICU. 09/22/2023 remains vent dependent, FiO2 50%/+10 of PEEP. Chest x-ray reporting worsening bibasilar infiltrates. maintained on IV fluid hydration with saline at 100ml/hr, diprovan, Levophed and Lasix drips. Receiving tube feeds of Glucerna at goal via NG tube with minimal to no residuals. Worsening renal function, bic arb 16, BUN 46, creatinine 2.98. Renal ultrasound reported no evidence for hydronephrosis. bicarb as per nephrology. Vascular surgery consulted for temporary hemodialysis catheter. Bronc washings reporting Lisa albicans, continues on Zosyn, fevers resolved, WBC within normal limits. Objective - Vital Signs Vital signs: Vital Signs Temp 98.1 F 09/22/23 08:00 Pulse 71 09/22/23 10:00 Resp 27 H 09/22/23 10:00 BP 128/62 09/22/23 10:00 Pulse Ox 96 09/22/23 10:00 FiO2 50 09/22/23 10:00 Intake & Output 09/21/23 09/22/23 09/22/23 18:59 06:59 18:59 Intake Total 3262.121 2373.046 788.661 Output Total 180 295 72 Balance 3082.121 2078.046 716.661 Intake: IV 1439 1366 365 0.9 sodium chloride 1200 1200 220 Furosemide 100 mg In 30 Sodium Chloride 0.9% 90 ml @ 10 MG/HR 10 mls/hr IV .Q10H [facility] Rx#: [id number] Piperacillin-Tazobactam 3 100 100 100 .375 gm In Sodium Chloride 0.9% 100 ml @ 25 mls/hr IVPB Q8HR [facility] Rx# :[id number] Pressure Bag 39 66 15 metroNIDAZOLE-NS PMX 500 100 mg In Saline 1 100ml.bag @ 100 mls/hr IVPB Q8HR [facility] Rx#:[id number] Intake, IV Titration 1363.121 397.046 243.661 Amount Furosemide 100 mg In 85.833 84.667 Sodium Chloride 0.9% 90 ml @ 10 MG/HR 10 mls/hr IV .Q10H [facility] Rx#: [id number] Norepinephrine 4 mg In 165.837 111.213 Sodium Chloride 0.9% 250 ml @ 0.03 MCG/KG/MIN 11. 064 mls/hr IV .[id number] [facility] Rx#:[id number] Sodium Chloride 0.9% 1, 1000 000 ml @ 999 mls/hr IV . Q1H1M [facility] Rx#:[id number] propofoL 1,000 mg In 197.284 200 115.434 Empty Bag 1 bag @ 15 MCG/ KG/MIN 8.712 mls/hr IV . [id number] [facility] Rx#:[id number] propofoL 1,000 mg In 43.56 Empty Bag 1 bag @ 15 MCG/ KG/MIN 8.712 mls/hr IV . [id number] [facility] Rx#:[id number] Tube Feeding 400 520 150 Other 60 90 30 Output: Urine 180 295 70 Stool 2 Other: Voiding Method Indwelling Catheter Indwelling Catheter # Bowel Movements 1 1 ABP, PAP, CO, CI - Last Documented Arterial Blood Pressure 131/44 - Exam PHYSICAL EXAM: VITAL SIGNS: [As above] GENERAL: Sedated and intubated HEENT: Normocephalic, atraumatic, eyes normal NECK: Supple, no JVD. CARDIOVASCULAR: S1, S2 regular. Systolic murmur RESPIRATION: equal air entry, scattered rhonchi, bilateral bases diminished ABDOMEN: Soft, nondistended ,nontender , no rigidity. Scrotal edema. LEGS: Positive edema. prior bilateral great toe amputations. NERVOUS SYSTEM: Unable to assess, sedated and intubated Skin: Warm and dry. - Labs CBC & Chem 7: 09/22/23 04:41 09/22/23 04:41 Labs: Abnormal Lab Results - Last 24 Hours (Table) 09/21/23 09/21/23 09/21/23 Range/Units 11:59 19:21 23:25 RBC (4.30-5.90) m/uL Hgb (13.0-17.5) gm/dL Hct (39.0-53.0) % MCHC (31.0-37.0) g/dL ABG pH (7.35-7.45) ABG HCO3 (21-25) mmol/L ABG O2 Saturation (94-97) % Chloride (98-107) mmol/L Carbon Dioxide (22-30) mmol/L BUN (9-20) mg/dL Creatinine (0.66-1.25) mg/dL Glucose (74-99) mg/dL POC Glucose (mg/dL) 163 H 171 H 173 H (70-110) mg/dL Calcium (8.4-10.2) mg/dL Alkaline Phosphatase (38-126) U/L Total Protein (6.3-8.2) g/dL Albumin (3.5-5.0) g/dL 09/22/23 09/22/23 09/22/23 Range/Units 04:41 04:41 06:03 RBC 2.77 L (4.30-5.90) m/uL Hgb 8.0 L (13.0-17.5) gm/dL Hct 27.3 L (39.0-53.0) % MCHC 29.4 L (31.0-37.0) g/dL ABG pH 7.24 L (7.35-7.45) ABG HCO3 18 L (21-25) mmol/L ABG O2 Saturation 97.1 H (94-97) % Chloride 119 H (98-107) mmol/L Carbon Dioxide 16 L (22-30) mmol/L BUN 46 H (9-20) mg/dL Creatinine 2.98 H (0.66-1.25) mg/dL Glucose 178 H (74-99) mg/dL POC Glucose (mg/dL) (70-110) mg/dL Calcium 7.2 L (8.4-10.2) mg/dL Alkaline Phosphatase 168 H (38-126) U/L Total Protein 4.2 L (6.3-8.2) g/dL Albumin 1.7 L (3.5-5.0) g/dL 09/22/23 Range/Units 06:10 RBC (4.30-5.90) m/uL Hgb (13.0-17.5) gm/dL Hct (39.0-53.0) % MCHC (31.0-37.0) g/dL ABG pH (7.35-7.45) ABG HCO3 (21-25) mmol/L ABG O2 Saturation (94-97) % Chloride (98-107) mmol/L Carbon Dioxide (22-30) mmol/L BUN (9-20) mg/dL Creatinine (0.66-1.25) mg/dL Glucose (74-99) mg/dL POC Glucose (mg/dL) 190 H (70-110) mg/dL Calcium (8.4-10.2) mg/dL Alkaline Phosphatase (38-126) U/L Total Protein (6.3-8.2) g/dL Albumin (3.5-5.0) g/dL Microbiology - Last 24 Hours (Table) 09/19/23 15:30 Gram Stain - Final Bronchial Washings - Random Bronchial Washings Culture - Final Lisa albicans 09/20/23 14:55 Blood Culture - Preliminary Blood Assessment and Plan Assessment: Acute hypoxic and hypercapnic respiratory failure, status post reintubation on 09/19/2023 secondary to aspiration pneumonia Septic shock, hypotension secondary to aspiration pneumonia, status post multiple fluid boluses, pressor dependent Acute rhabdomyolysis Acute renal failure, secondary to ATN, worsening, Metabolic acidosis secondary to the above Fevers secondary to the above, resolved Sepsis, secondary to all the above, on cefepime, resolved. Hypothermia secondary to the above. Acute left lower lobe pneumonia as per pulmonary, initial sputum culture, polymicrobial, reporting E. coli, Staphylococcus aureus-MSSA, strep agalactiae group B. Bronc washings 09/18 reporting Lisa albicans Dysphagia, delayed swallowing, MBS completed-speech recommending dysphagia level 2 diet, one-to-one supervision, aspiration precautions Rectal pain, wall thickening of the rectum/sigmoid colon reported per CT Fat-containing right inguinal hernia reported per CT Thrombocytopenia Paroxysmal atrial fibrillation Acute metabolic encephalopathy secondary to all the above, suspect anoxic. Brain CT did not report any acute abnormalities, EEG reported slowing suggestive of severe encephalopathy likely due to toxic metabolic derangement. Elevated troponin, multifactorial secondary to all the above, ACS ruled out,Type II NH as per cardiology. Severe dehydration Diabetes mellitus type 2, hemoglobin A1c 11.9 CAD, history of NH, stent History of seizure disorder, on Keppra Stage I pressure ulcer, 1 cm near rectum Fungal rash, anterior scrotum Acute DKA, anion gap closed , resolved Hypovolemic shock, status post pressor dependent, resolved Acute hypoxic respiratory failure secondary to the above, reintubated 09/19/2023 Severe anion gap metabolic acidosis secondary to the above, status post bicarb drip. Hyperchloremic hypernatremia, resolved. Plan: Continue on current medication resume ,monitoring and symptomatic treatment. Hemodialysis, bicarb as per nephrology Lovenox placed on hold for placement of temporary hemodialysis catheter per vascular surgery. Prognosis guarded given multiple complex medical issues. The impression and plan of care has been dictated as directed. : I performed a history and examination of this patient, discussed the same with the dictator. I agree with the dictator's note ,documented as a scribe. Any additional findings or plans will be noted.
[2023-09-22 21:48] LABS: Hepatitis B Surface AB- Quant 46.5 mIU/mL
[2023-09-22 22:59] LABS: Hepatitis B Surface Antigen Nonreactive (Nonreactive)
[2023-09-23] LABS: Glucose,Whole Blood 193 mg/dL (70-110)
[2023-09-23 05:02] LABS: Glucose,Whole Blood 179 mg/dL (70-110)
[2023-09-23 05:53] LABS: African American GFR (CKD) 23 (>60 ml/min/1.73 sqM); Anion Gap 9 mmol/L; Blood Urea Nitrogen 42 mg/dL (9-20); Calcium 7.2 mg/dL (8.4-10.2); Carbon Dioxide 21 mmol/L (22-30); Chloride 113 mmol/L (98-107); Glucose 164 mg/dL (74-99); Non-African American GFR(CKD) 20 (>60 ml/min/1.73 sqM); Potassium 4.2 mmol/L (3.5-5.1); Sodium 143 mmol/L (137-145)
[2023-09-23 06:03] LABS: Basophils % (A) 0 %; Eosinophils # (A) 0.1 k/uL (0-0.7); Eosinophils % (A) 1 %; HCT 26.7 % (39.0-53.0); HGB 8.2 gm/dL (13.0-17.5); Hypochromasia Marked; Lymphocytes # (A) 0.5 k/uL (1.0-4.8); Lymphocytes % (A) 5 %; MCH 30.2 pg (25.0-35.0); MCHC 30.8 g/dL (31.0-37.0); MCV 97.9 fL (80.0-100.0); Mean Platelet Volume 10.6; Monocytes # (A) 0.6 k/uL (0-1.0); Monocytes % (A) 6 %; Neutrophils # (A) 7.9 k/uL (1.3-7.7); Neutrophils % (A) 87 %; Platelet Count 197 k/uL (150-450); RBC 2.73 m/uL (4.30-5.90); RDW 13.6 % (11.5-15.5); WBC 9.1 k/uL (3.8-10.6)
[2023-09-23 06:21] LABS: ABG Base Excess -3.5 mmol/L; ABG HCO3 22 mmol/L (21-25); ABG Oxygen Saturation 93.6 % (94-97); ABG PCO2 44 mmHg (35-45); ABG PH 7.32 (7.35-7.45); ABG PO2 70 mmHg (83-108); ABG TCO2 24 mmol/L (19-24); Allen Test Performed? Yes
--- NOTE | 2023-09-23 09:04 | XR ---
EXAMINATION TYPE: XR chest 1V portable DATE OF EXAM: 09/23/2023 COMPARISON: 09/22/2023 INDICATION: Difficulty breathing, mechanical ventilation TECHNIQUE: Single frontal view of the chest is obtained. FINDINGS: The heart size is normal. The pulmonary vasculature is normal. Bibasilar infiltrates are present. Small right pleural effusion is likely present. Endotracheal tube tip is 3.7 cm above the mahesh. Nasogastric tube transverses the thorax with tip in the abdomen. Left central venous catheter is present with tip in the superior vena cava region. IMPRESSION: 1. Bibasilar infiltrates. Correlate for atelectasis and pneumonia. 2. Small right pleural effusion is likely present. 3. Lines and catheters discussed above.
[2023-09-23] MEDS: HYDROmorphone 1 MG/ML 1 ML SYRINGE IVP PRN (09:50)
--- NOTE | 2023-09-23 11:29 | P.PN ---
Subjective Progress Note Date: 09/23/23 Principal diagnosis: Acute kidney injury Patient seen and examined today as a follow-up in the ICU. He remains sedated and intubated. Yesterday he had a right groin temporary HD catheter placed. He received hemodialysis without any complications according to nursing. Objective - Vital Signs Vital signs: Vital Signs Temp 99.1 F 09/23/23 04:00 Pulse 71 09/23/23 07:00 Resp 24 09/23/23 07:00 BP 128/64 09/23/23 06:45 Pulse Ox 91 L 09/23/23 07:00 FiO2 50 09/23/23 04:00 Intake & Output 09/22/23 09/23/23 09/23/23 18:59 06:59 18:59 Intake Total 2618.101 1303.807 Output Total 1757 460 Balance 861.101 843.807 Weight 96.8 kg Intake: IV 682 409 0.9 sodium chloride 310 120 Furosemide 100 mg In 130 120 Sodium Chloride 0.9% 90 ml @ 10 MG/HR 10 mls/hr IV .Q10H [facility] Rx#: [id number] Piperacillin-Tazobactam 3 200 100 .375 gm In Sodium Chloride 0.9% 100 ml @ 25 mls/hr IVPB Q8HR [facility] Rx# :[id number] Pressure Bag 42 69 Intake, IV Titration 846.101 469.807 Amount Furosemide 100 mg In 176.667 68.5 Sodium Chloride 0.9% 90 ml @ 10 MG/HR 10 mls/hr IV .Q10H [facility] Rx#: [id number] Norepinephrine 4 mg In 254.000 134.612 Sodium Chloride 0.9% 250 ml @ 0.03 MCG/KG/MIN 11. 064 mls/hr IV .[id number] [facility] Rx#:[id number] propofoL 1,000 mg In 115.434 Empty Bag 1 bag @ 15 MCG/ KG/MIN 8.712 mls/hr IV . [id number] [facility] Rx#:[id number] propofoL 1,000 mg In 300.000 266.695 Empty Bag 1 bag @ 15 MCG/ KG/MIN 8.712 mls/hr IV . [id number] [facility] Rx#:[id number] Tube Feeding 600 365 Hemodialysis 400 Other 90 60 Output: Urine 105 360 Stool 252 100 Hemodialysis 1400 Other: Voiding Method Indwelling Catheter Indwelling Catheter ABP, PAP, CO, CI - Last Documented Arterial Blood Pressure 130/47 - Exam General appearance: The patient is sedated and intubated. HET: Head is normocephalic and atraumatic. Neck: Supple. Heart: Regular. Lungs: Equal expansion. Abdomen: Soft, nondistended. Extremities: Normal skin color and turgor. Right groin temporary HD catheter in place without any bleeding or hematoma. Neurological: Sedated and intubated. - Labs CBC & Chem 7: 09/23/23 04:55 09/23/23 04:55 Labs: Abnormal Lab Results - Last 24 Hours (Table) 09/19/23 09/22/23 09/22/23 Range/Units 15:30 11:49 14:15 RBC (4.30-5.90) m/uL Hgb (13.0-17.5) gm/dL Hct (39.0-53.0) % MCHC (31.0-37.0) g/dL Neutrophils # (1.3-7.7) k/uL Lymphocytes # (1.0-4.8) k/uL ABG pH (7.35-7.45) ABG pO2 (83-108) mmHg ABG O2 Saturation (94-97) % Chloride (98-107) mmol/L Carbon Dioxide (22-30) mmol/L BUN (9-20) mg/dL Creatinine (0.66-1.25) mg/dL Glucose (74-99) mg/dL POC Glucose (mg/dL) 194 H (70-110) mg/dL Calcium (8.4-10.2) mg/dL Phosphorus 5.5 H (2.5-4.5) mg/dL Fluid Appearance Cloudy A (Clear) Fluid RBC 28590 H (0-2000) /uL Hep Bs Antibody (Negative) 09/22/23 09/22/23 09/22/23 Range/Units 14:15 18:08 23:58 RBC (4.30-5.90) m/uL Hgb (13.0-17.5) gm/dL Hct (39.0-53.0) % MCHC (31.0-37.0) g/dL Neutrophils # (1.3-7.7) k/uL Lymphocytes # (1.0-4.8) k/uL ABG pH (7.35-7.45) ABG pO2 (83-108) mmHg ABG O2 Saturation (94-97) % Chloride (98-107) mmol/L Carbon Dioxide (22-30) mmol/L BUN (9-20) mg/dL Creatinine (0.66-1.25) mg/dL Glucose (74-99) mg/dL POC Glucose (mg/dL) 176 H 193 H (70-110) mg/dL Calcium (8.4-10.2) mg/dL Phosphorus (2.5-4.5) mg/dL Fluid Appearance (Clear) Fluid RBC (0-2000) /uL Hep Bs Antibody A (Negative) 09/23/23 09/23/23 09/23/23 Range/Units 04:55 04:55 05:01 RBC 2.73 L (4.30-5.90) m/uL Hgb 8.2 L (13.0-17.5) gm/dL Hct 26.7 L (39.0-53.0) % MCHC 30.8 L (31.0-37.0) g/dL Neutrophils # 7.9 H (1.3-7.7) k/uL Lymphocytes # 0.5 L (1.0-4.8) k/uL ABG pH (7.35-7.45) ABG pO2 (83-108) mmHg ABG O2 Saturation (94-97) % Chloride 113 H (98-107) mmol/L Carbon Dioxide 21 L (22-30) mmol/L BUN 42 H (9-20) mg/dL Creatinine 3.07 H (0.66-1.25) mg/dL Glucose 164 H (74-99) mg/dL POC Glucose (mg/dL) 179 H (70-110) mg/dL Calcium 7.2 L (8.4-10.2) mg/dL Phosphorus (2.5-4.5) mg/dL Fluid Appearance (Clear) Fluid RBC (0-2000) /uL Hep Bs Antibody (Negative) 09/23/23 Range/Units 06:17 RBC (4.30-5.90) m/uL Hgb (13.0-17.5) gm/dL Hct (39.0-53.0) % MCHC (31.0-37.0) g/dL Neutrophils # (1.3-7.7) k/uL Lymphocytes # (1.0-4.8) k/uL ABG pH 7.32 L (7.35-7.45) ABG pO2 70 L (83-108) mmHg ABG O2 Saturation 93.6 L (94-97) % Chloride (98-107) mmol/L Carbon Dioxide (22-30) mmol/L BUN (9-20) mg/dL Creatinine (0.66-1.25) mg/dL Glucose (74-99) mg/dL POC Glucose (mg/dL) (70-110) mg/dL Calcium (8.4-10.2) mg/dL Phosphorus (2.5-4.5) mg/dL Fluid Appearance (Clear) Fluid RBC (0-2000) /uL Hep Bs Antibody (Negative) Microbiology - Last 24 Hours (Table) 09/20/23 14:55 Blood Culture - Preliminary Blood 09/19/23 15:30 Acid Fast Bacilli Smear - Preliminary Bronchial Washings - Random 09/19/23 15:30 Gram Stain - Final Bronchial Washings - Random Bronchial Washings Culture - Final Lisa albicans Assessment and Plan Assessment: Acute kidney injury requiring hemodialysis status post temporary HD catheter placement Plan: 1. May resume Lovenox 2. Continue hemodialysis per recommendations from nephrology Thank you for this consultation, we will be on standby. If further needed please do not hesitate to reach out to us. The impression and plan of care has been dictated as directed. I performed a history and examination of this patient, discussed the same with the dictator. I agree with the dictator's note ,documented as a scribe. Any additional findings or plans will be noted.
--- NOTE | 2023-09-23 11:44 | P.PN ---
Subjective Progress Note Date: 09/23/23 Principal diagnosis: Progress note dated 09/22/23 67-year-old male with past medical history significant for diabetes mellitus, prior toe amputations, hyperlipidemia, coronary artery disease with previous stents, and seizure disorder who presented to the ED on 09/06 with DKA unresponsive intubated and mechanically ventilated. Patient was admitted to the ICU for DKA, respiratory failure, and MARIANO. He remained in the ICU until 09/12 when he was transferred to the floors. On 09/18 he was scheduled for colonoscopy as well as PEG placement on 09/21. On 09/18 his O2 requirement increased from 2-6L NC. A Team was called and he was reintubated and transferred to the ICU. Patient was evaluated today on 09/18/2023, patient is about the same, continues to have some discomfort in his back and in his rectal area, supposed to have colonoscopy tomorrow. Eliquis remains on hold. Patient has no active pulmonary issues. WBC count is 8.6 hemoglobin 10.2 electrolytes are normal renal profile is normal The patient was seen today September 19, 2023 in follow-up on the [facility]. Today he is found to be weak and obtunded. He is requiring more oxygen currently at 6 L high flow nasal cannula. A rapid response team was called on him. Chest x-ray and ABGs reviewed. He will be transferred to the intensive care unit. Serial blood gases on 100% FiO2 revealed a P O2 of 66, pCO2 of 49 and a pH of 7.32. White count 9.9. Hemoglobin 11.3. Platelets 233. Sodium 143. Potassium 4.5. Bicarb 26. BUN 17. Creatinine 0.87. Glucose 151. The patient has been having concerns of rectal pain and possible rectal mass and the plan was for colonoscopy. However the patient was having ongoing issues with difficulty in swallowing and was being considered for PEG tube placement. This was prior to his change in clinical status. X-ray did reveal a right lower lobe infiltrate with minimal right pleural effusion. Patient was evaluated today on 09/20/2023, patient developed a worsening pulmonary status yesterday, required transfer to the ICU intubation mechanical ventilation. I saw the patient yesterday, he underwent bronchoscopy, lines were placed and the patient, and he was kept on mechanical ventilation overnight. Patient is now on assist-control rate of 24 tidal volume 450 FiO2 was 80% earlier but is now 50%, and PEEP of 10 ABG showed a pO2 of 92 pCO2 47 pH of 7.30 his urine output is 5 to 20 cc/h, however his CVP is low and the patient will require more fluid boluses if no improvement after fluid boluses, then we will give the patient Lasix. In the meantime the patient is requiring propofol at 35 mg/kg/min norepinephrine at 0.06 mg/kg/min IV fluid running at 100 cc/h and the patient is also receiving vital HP at 10 cc/h antibiotics rosario he is receiving Flagyl and Zosyn. Chest x-ray continues to show bilateral infiltrates consistent with most likely aspiration pneumonia. Patient was seen by infectious disease and he is now on Flagyl and ZosynWBC count today is 13 hemoglobin 9.3 basic metabolic profile is normal renal profile showed a BUN of 29 creatinine 1.45 Patient was evaluated today on 09/21/2023, remains in the ICU, intubated and mechanically ventilated. Patient is on assist-control rate of 24 tidal volume 450 FiO2 50% and PEEP of 10 ABG showed a pO2 of 79 pCO2 43 pH of 7.26, apparently the patient developed some metabolic acidosis associated with acute kidney injury, and I have recommended 1 amp of bicarb to be given and sodium bi carb to be given orally and I also recommended nephrology evaluation on this patient as his renal status seems to be getting worse and the patient is having less and less urine output. CVP is around 7 patient will receive more fluids today, may consider Lasix depending on the response to fluid boluses. Urine output is extremely low. And again his renal functioning is getting worse. Patient remains on propofol at 50 mcg/kg/min he is also on norepinephrine at 0.03 mcg/kg/min, patient is receiving Glucerna 1.5/enteral feeding, patient remains on Lovenox 80 mg SQ twice daily, he is also on Zosyn and Flagyl. Chest x-ray continues to show bilateral infiltrates. Improved compared to his initial chest x-ray but nonetheless considered to be significant airspace disease bilaterally. Microbiology from the bronchial washing/lavage, showed mostly Lisa, Gram stains and cultures from previous sputum from 09/08/2023 showed E. coli Staph aureus and Streptococcus agalactiae Patient was evaluated today on 09/22/2023, remains in the ICU, intubated and mechanically ventilated. He is on propofol 25 mcg/kg/min, Levophed 0.09 mcg/kg/min, and .9 NS IVF at 10cc/h patient is on assist-control rate of 24 tidal volume 450 FiO2 50% and PEEP of 10. ABG shows pH 7.24 pCO2 42 and pO2 of 97. Patient exhibits normal anion gap metabolic acidosis. Sodium 145, potassium 4.4, chloride 119, CO2 16, BUN 46, creatinine 2.98, glucose 178, and albumin 1.7. He received Sodium bicarb orally, 1amp IVP bicarb, and 80 mg Lasix as per nephrology's recommendation due to patient's poor urine output despite fluids and Lasix. Renal ultrasound showed no hydronephrosis and a left renal cyst. X-ray shows worsening bibasilar infiltrates. Bronchial washings showed Lisa albicans. He is on Zosyn 25ml/hr. Patient was evaluated today on 09/23/2023, remains in ICU, intubated and mechanically ventilated. He is on propofol 50 mcg/kg/min, Levophed 0.06 mcg/kg/min, and 0.9 normal saline IV fluids at 10 cc/h. Patient is patient is on assist-control rate of 24 tidal volume 450 FiO2 50% and PEEP of 10. ABG show s pH of 7.32 pCO2 of 44 and pO2 of 70. Sodium is 143, potassium 4.2, chloride 113, CO2 21, BUN 42, creatinine 3.07, glucose 164, cortisol 11.7 and TSH was 0.618. Since urine output remains poor despite fluid restriction and Lasix. Nephrology has discontinued the Lasix drip of 10 mcg/h and placed the patient on 80 mg IVP twice daily. Patient was dialyzed 1L yesterday and is currently undergoing dialysis with a goal of 2.5 L and tolerating well. Patient has FMS in place. He is receiving Glucerna tube feeds at a rate of 35/h. Chest x-ray today remains unchanged shows bibasilar infiltrates with a small right pleural effusion. Objective - Vital Signs Vital signs: Vital Signs Temp 98.3 F 09/23/23 08:00 Pulse 75 09/23/23 10:30 Resp 24 09/23/23 10:30 BP 137/66 09/23/23 10:30 Pulse Ox 89 L 09/23/23 10:30 FiO2 50 07/16/24 10:30 Intake & Output 09/22/23 09/23/23 09/23/23 18:59 06:59 18:59 Intake Total 2618.101 1303.807 658.009 Output Total 1757 460 85 Balance 861.101 843.807 573.009 Weight 96.8 kg Intake: IV 682 409 139 0.9 sodium chloride 310 120 30 Furosemide 100 mg In 130 120 Sodium Chloride 0.9% 90 ml @ 10 MG/HR 10 mls/hr IV .Q10H [facility] Rx#: [id number] Piperacillin-Tazobactam 3 200 100 100 .375 gm In Sodium Chloride 0.9% 100 ml @ 25 mls/hr IVPB Q8HR [facility] Rx# :[id number] Pressure Bag 42 69 9 Intake, IV Titration 846.101 469.807 384.009 Amount Furosemide 100 mg In 176.667 68.5 73 Sodium Chloride 0.9% 90 ml @ 10 MG/HR 10 mls/hr IV .Q10H [facility] Rx#: [id number] Norepinephrine 4 mg In 254.000 134.612 136.763 Sodium Chloride 0.9% 250 ml @ 0.03 MCG/KG/MIN 11. 064 mls/hr IV .[id number] [facility] Rx#:[id number] propofoL 1,000 mg In 115.434 Empty Bag 1 bag @ 15 MCG/ KG/MIN 8.712 mls/hr IV . [id number] [facility] Rx#:[id number] propofoL 1,000 mg In 300.000 266.695 174.246 Empty Bag 1 bag @ 15 MCG/ KG/MIN 8.712 mls/hr IV . [id number] [facility] Rx#:[id number] Tube Feeding 600 365 105 Hemodialysis 400 Other 90 60 30 Output: Urine 105 360 85 Stool 252 100 Hemodialysis 1400 Other: Voiding Method Indwelling Catheter Indwelling Catheter ABP, PAP, CO, CI - Last Documented Arterial Blood Pressure 137/48 - Exam GENERAL EXAM: 67-year-old white male intubated, mechanically ventilated, s edated, not in distress, generally edematous in all 4 extremities Endotracheal tube and orogastric tube are intact. HEAD: Normocephalic and atraumatic EYES: Within normal NOSE: Clear with pink turbinates. THROAT: No erythema or exudates. Dry mucous membranes. NECK: No masses, no JVD. Subclavian central line is noted. CHEST: No chest wall deformity. LUNGS: Good breath sound bilaterally mostly diminished at the bases no crackles rhonchi or wheezes CVS: S1 and S2 normal with no soft systolic murmur, regular rhythm. No extra heart sounds ABDOMEN: Abdomen flat, active bowel sounds, no hepatosplenomegaly, no guarding or rigidity. SKIN: No rashes CENTRAL NERVOUS SYSTEM: Could not assess patient is sedated intubated mechanically ventilated Theatric: Could not assess EXTREMITIES: no clubbing, no cyanosis, trace bipedal edema. - Additional findings Additional findings: Lines: Left radial art line placed on 712 Left subclavian triple-lumen catheter placed on 7-12 Right forearm AccuCath placed on 79 Femoral dialysis catheter placed on 715 Right wrist IV placed on 712 - Labs CBC & Chem 7: 09/23/23 04:55 09/23/23 04:55 Labs: Abnormal Lab Results - Last 24 Hours (Table) 09/19/23 09/22/23 09/22/23 Range/Units 15:30 11:49 14:15 RBC (4.30-5.90) m/uL Hgb (13.0-17.5) gm/dL Hct (39.0-53.0) % MCHC (31.0-37.0) g/dL Neutrophils # (1.3-7.7) k/uL Lymphocytes # (1.0-4.8) k/uL ABG pH (7.35-7.45) ABG pO2 (83-108) mmHg ABG O2 Saturation (94-97) % Chloride (98-107) mmol/L Carbon Dioxide (22-30) mmol/L BUN (9-20) mg/dL Creatinine (0.66-1.25) mg/dL Glucose (74-99) mg/dL POC Glucose (mg/dL) 194 H (70-110) mg/dL Calcium (8.4-10.2) mg/dL Phosphorus 5.5 H (2.5-4.5) mg/dL Fluid Appearance Cloudy A (Clear) Fl[place] [address]13 H (0-2000) /uL Hep Bs Antibody (Negative) 09/22/23 09/22/23 09/22/23 Range/Units 14:15 18:08 23:58 RBC (4.30-5.90) m/uL Hgb (13.0-17.5) gm/dL Hct (39.0-53.0) % MCHC (31.0-37.0) g/dL Neutrophils # (1.3-7.7) k/uL Lymphocytes # (1.0-4.8) k/uL ABG pH (7.35-7.45) ABG pO2 (83-108) mmHg ABG O2 Saturation (94-97) % Chloride (98-107) mmol/L Carbon Dioxide (22-30) mmol/L BUN (9-20) mg/dL Creatinine (0.66-1.25) mg/dL Glucose (74-99) mg/dL POC Glucose (mg/dL) 176 H 193 H (70-110) mg/dL Calcium (8.4-10.2) mg/dL Phosphorus (2.5-4.5) mg/dL Fluid Appearance (Clear) Fluid RBC (0-2000) /uL Hep Bs Antibody A (Negative) 09/23/23 09/23/23 09/23/23 Range/Units 04:55 04:55 05:01 RBC 2.73 L (4.30-5.90) m/uL Hgb 8.2 L (13.0-17.5) gm/dL Hct 26.7 L (39.0-53.0) % MCHC 30.8 L (31.0-37.0) g/dL Neutrophils # 7.9 H (1.3-7.7) k/uL Lymphocytes # 0.5 L (1.0-4.8) k/uL ABG pH (7.35-7.45) ABG pO2 (83-108) mmHg ABG O2 Saturation (94-97) % Chloride 113 H (98-107) mmol/L Carbon Dioxide 21 L (22-30) mmol/L BUN 42 H (9-20) mg/dL Creatinine 3.07 H (0.66-1.25) mg/dL Glucose 164 H (74-99) mg/dL POC Glucose (mg/dL) 179 H (70-110) mg/dL Calcium 7.2 L (8.4-10.2) mg/dL Phosphorus (2.5-4.5) mg/dL Fluid Appearance (Clear) Fluid RBC (0-2000) /uL Hep Bs Antibody (Negative) 09/23/23 Range/Units 06:17 RBC (4.30-5.90) m/uL Hgb (13.0-17.5) gm/dL Hct (39.0-53.0) % MCHC (31.0-37.0) g/dL Neutrophils # (1.3-7.7) k/uL Lymphocytes # (1.0-4.8) k/uL ABG pH 7.32 L (7.35-7.45) ABG pO2 70 L (83-108) mmHg ABG O2 Saturation 93.6 L (94-97) % Chloride (98-107) mmol/L Carbon Dioxide (22-30) mmol/L BUN (9-20) mg/dL Creatinine (0.66-1.25) mg/dL Glucose (74-99) mg/dL POC Glucose (mg/dL) (70-110) mg/dL Calcium (8.4-10.2) mg/dL Phosphorus (2.5-4.5) mg/dL Fluid Appearance (Clear) Fluid RBC (0-2000) /uL Hep Bs Antibody (Negative) Microbiology - Last 24 Hours (Table) 09/20/23 14:55 Blood Culture - Preliminary Blood 09/19/23 15:30 Acid Fast Bacilli Smear - Preliminary Bronchial Washings - Random 09/19/23 15:30 Gram Stain - Final Bronchial Washings - Random Bronchial Washings Culture - Final Lisa albicans Assessment and Plan Assessment: Acute hypoxic respiratory failure secondary to aspiration pneumonia s/p reintubation on 09/19/23 Aspiration PNA Left lower lobe sputum culture(E.coli, MSSA, Group B Strep) Hypotension due to suspected septic shock from pneumonia Acute kidney injury Malnutrition with severe hypoalbuminemia Anasarca secondary to hypoalbuminemia Normal anion gap metabolic acidosis Acute DKA resolved Hx of Type 2 DM Hx of B/L great toe amputations HX of Hyperlipidemia Hx of CAD with previous stent Hx of seizure disorder Plan Continue ventilator suppot Continue IVF at 10/hr & 80mg IVP BID as per nephro's recommendations Continue hemodynamic support with levophed Hemodialysis today with goal of 2.5L Follow-up procalcitonin level DIS-SBT to be completed as tolerated after dialysis Continue GI and DVT prophylaxis Continue enteral feeding/nutritional support with new goal of 35/hr Continue Levemir insulin and sliding scale/NovoLog insulin Patient is critically ill, prognosis is relatively guarded Patient is critically ill and critical care time is over 30 Will continue to follow
[2023-09-23 11:56] LABS: Glucose,Whole Blood 133 mg/dL (70-110)
--- NOTE | 2023-09-23 12:39 | P.PN ---
Subjective Patient is seen in follow-up for acute kidney injury. Started on hemodialysis September 22, 2023. Tolerating dialysis well. On Lasix drip. On Levophed. Urine output slightly improved to 15 to 20 cc an hour. Vital signs are stable. On vasopressor support. General: Resting in bed. HEENT: Intubated. LUNGS: Scattered rhonchi. HEART: Rate and Rhythm are regular. ABDOMEN: No distention. EXTREMITITES: 1+ edema. Scrotal edema noted. Objective - Vital Signs Vital signs: Vital Signs Temp 98.3 F 09/23/23 08:00 Pulse 78 09/23/23 11:45 Resp 24 09/23/23 10:30 BP 137/66 09/23/23 10:30 Pulse Ox 89 L 09/23/23 10:30 FiO2 50 09/23/23 11:31 Intake & Output 09/22/23 09/23/23 09/23/23 18:59 06:59 18:59 Intake Total 2618.101 1303.807 658.009 Output Total 1757 460 85 Balance 861.101 843.807 573.009 Weight 96.8 kg Intake: IV 682 409 139 0.9 sodium chloride 310 120 30 Furosemide 100 mg In 130 120 Sodium Chloride 0.9% 90 ml @ 10 MG/HR 10 mls/hr IV .Q10H [facility] Rx#: [id number] Piperacillin-Tazobactam 3 200 100 100 .375 gm In Sodium Chloride 0.9% 100 ml @ 25 mls/hr IVPB Q8HR [facility] Rx# :[id number] Pressure Bag 42 69 9 Intake, IV Titration 846.101 469.807 384.009 Amount Furosemide 100 mg In 176.667 68.5 73 Sodium Chloride 0.9% 90 ml @ 10 MG/HR 10 mls/hr IV .Q10H [facility] Rx#: [id number] Norepinephrine 4 mg In 254.000 134.612 136.763 Sodium Chloride 0.9% 250 ml @ 0.03 MCG/KG/MIN 11. 064 mls/hr IV .[id number] [facility] Rx#:[id number] propofoL 1,000 mg In 115.434 Empty Bag 1 bag @ 15 MCG/ KG/MIN 8.712 mls/hr IV . [id number] [facility] Rx#:[id number] propofoL 1,000 mg In 300.000 266.695 174.246 Empty Bag 1 bag @ 15 MCG/ KG/MIN 8.712 mls/hr IV . [id number] [facility] Rx#:[id number] Tube Feeding 600 365 105 Hemodialysis 400 Other 90 60 30 Output: Urine 105 360 85 Stool 252 100 Hemodialysis 1400 Other: Voiding Method Indwelling Catheter Indwelling Catheter ABP, PAP, CO, CI - Last Documented Arterial Blood Pressure 137/48 - Labs CBC & Chem 7: 09/23/23 04:55 09/23/23 04:55 Labs: Abnormal Lab Results - Last 24 Hours (Table) 09/22/23 09/22/23 09/22/23 Range/Units 14:15 14:15 18:08 RBC (4.30-5.90) m/uL Hgb (13.0-17.5) gm/dL Hct (39.0-53.0) % MCHC (31.0-37.0) g/dL Neutrophils # (1.3-7.7) k/uL Lymphocytes # (1.0-4.8) k/uL ABG pH (7.35-7.45) ABG pO2 (83-108) mmHg ABG O2 Saturation (94-97) % Chloride (98-107) mmol/L Carbon Dioxide (22-30) mmol/L BUN (9-20) mg/dL Creatinine (0.66-1.25) mg/dL Glucose (74-99) mg/dL POC Glucose (mg/dL) 176 H (70-110) mg/dL Calcium (8.4-10.2) mg/dL Phosphorus 5.5 H (2.5-4.5) mg/dL Hep Bs Antibody A (Negative) 09/22/23 09/23/23 09/23/23 Range/Units 23:58 04:55 04:55 RBC 2.73 L (4.30-5.90) m/uL Hgb 8.2 L (13.0-17.5) gm/dL Hct 26.7 L (39.0-53.0) % MCHC 30.8 L (31.0-37.0) g/dL Neutrophils # 7.9 H (1.3-7.7) k/uL Lymphocytes # 0.5 L (1.0-4.8) k/uL ABG pH (7.35-7.45) ABG pO2 (83-108) mmHg ABG O2 Saturation (94-97) % Chloride 113 H (98-107) mmol/L Carbon Dioxide 21 L (22-30) mmol/L BUN 42 H (9-20) mg/dL Creatinine 3.07 H (0.66-1.25) mg/dL Glucose 164 H (74-99) mg/dL POC Glucose (mg/dL) 193 H (70-110) mg/dL Calcium 7.2 L (8.4-10.2) mg/dL Phosphorus (2.5-4.5) mg/dL Hep Bs Antibody (Negative) 09/23/23 09/23/23 09/23/23 Range/Units 05:01 06:17 11:54 RBC (4.30-5.90) m/uL Hgb (13.0-17.5) gm/dL Hct (39.0-53.0) % MCHC (31.0-37.0) g/dL Neutrophils # (1.3-7.7) k/uL Lymphocytes # (1.0-4.8) k/uL ABG pH 7.32 L (7.35-7.45) ABG pO2 70 L (83-108) mmHg ABG O2 Saturation 93.6 L (94-97) % Chloride (98-107) mmol/L Carbon Dioxide (22-30) mmol/L BUN (9-20) mg/dL Creatinine (0.66-1.25) mg/dL Glucose (74-99) mg/dL POC Glucose (mg/dL) 179 H 133 H (70-110) mg/dL Calcium (8.4-10.2) mg/dL Phosphorus (2.5-4.5) mg/dL Hep Bs Antibody (Negative) Microbiology - Last 24 Hours (Table) 09/20/23 14:55 Blood Culture - Preliminary Blood 09/19/23 15:30 Acid Fast Bacilli Smear - Preliminary Bronchial Washings - Random 09/19/23 15:30 Gram Stain - Final Bronchial Washings - Random Bronchial Washings Culture - Final Lisa albicans Assessment and Plan Plan: Assessment: 1. Acute kidney injury secondary to ATN secondary to hypotension requiring vasopressor support. Baseline creatinine near 1 and is 3.07 today. Urine output 10 to 20 cc an hour. No hydronephrosis noted on kidney ultrasound. Started on hemodialysis September 21 to 2023 via temporary catheter. Dialysis 2. Septic shock secondary to pneumonia on antibiotics. ID following. 3. Metabolic acidosis secondary to acute kidney injury and IV fluids. 4. Acute hypoxic respiratory failure secondary to pneumonia. Intubated. 5. DKA on presentation status post insulin drip. 6. Hyperphosphatemia secondary to acute kidney injury. Phosphorus level 5.5 dated September 22, 2023. 7. Volume overload. Plan: Currently seen while undergoing hemodialysis. Another treatment tomorrow. Stop Lasix drip. Add IV Lasix 80 mg twice daily. Maintain tube feeds. Wean Levophed. Continue to monitor renal function and urine output.
--- NOTE | 2023-09-23 14:07 | P.PN ---
Subjective Progress Note Date: 09/23/23 CHIEF COMPLAINT: rectal pain HISTORY OF PRESENT ILLNESS: 67-year-old male admitted to the hospital for DKA. Surgical service following in regards to rectal wall thickening noted in the rectum/sigmoid colon on CT scan. Patient is currently in the ICU intubated and on mechanical ventilation after aspirating. He is receiving hemodialysis today. He remains on Levophed. They are switching the Lasix drip to IV Lasix push. Afebrile. WBC 9.1 Hgb 8.2 creatinine 3.07 patient has OG tube receiving tube f eeds. Patient has fecal management system in place. PHYSICAL EXAM: VITAL SIGNS: Reviewed GENERAL: no acute distress. Intubated HEENT: No sclera icterus. Moist buccal mucosa. NECK: Supple without lymphadenopathy. CHEST: Non-labored respirations and equal bilateral excursions. CARDIOVASCULAR: Palpable 2+ radial pulses. ABDOMEN: Soft. Nondistended. MUSCULOSKELETAL: No clubbing or cyanosis. NEUROLOGIC: Intubated and sedated SKIN: Well perfused. Good skin turgor. ASSESSMENT: 1. Acute hypoxia and respiratory failure due to aspiration 2. Inadequate protein malnutrition 3. Severe hypoalbuminemia 4. Anemia 5. Wall thickening of the rectum and sigmoid colon noted on CT PLAN: -No plans for peg tube or endoscopies at this time -Continue ICU management -Continue supportive care Physician Radiology Physician Assistant note has been reviewed by physician. Signing provider agrees with the documented findings, assessment, and plan of care. Objective - Vital Signs Vital signs: Vital Signs Temp 98 F 09/23/23 13:36 Pulse 84 09/23/23 13:36 Resp 25 H 09/23/23 13:36 BP 126/45 09/23/23 13:36 Pulse Ox 85 L 09/23/23 12:45 FiO2 50 09/23/23 12:45 Intake & Output 09/22/23 09/23/23 09/23/23 18:59 06:59 18:59 Intake Total 2618.101 5527.903 7562.009 Output Total 3247 923 0435 Balance 861.101 843.807 -1771.991 Weight 96.8 kg Intake: IV 682 409 165 0.9 sodium chloride 310 120 50 Furosemide 100 mg In 130 120 Sodium Chloride 0.9% 90 ml @ 10 MG/HR 10 mls/hr IV .Q10H [facility] Rx#: [id number] Piperacillin-Tazobactam 3 200 100 100 .375 gm In Sodium Chloride 0.9% 100 ml @ 25 mls/hr IVPB Q8HR [facility] Rx# :[id number] Pressure Bag 42 69 15 Intake, IV Titration 846.101 469.807 423.009 Amount Furosemide 100 mg In 176.667 68.5 112 Sodium Chloride 0.9% 90 ml @ 10 MG/HR 10 mls/hr IV .Q10H [facility] Rx#: [id number] Norepinephrine 4 mg In 254.000 134.612 136.763 Sodium Chloride 0.9% 250 ml @ 0.03 MCG/KG/MIN 11. 064 mls/hr IV .[id number] [facility] Rx#:[id number] propofoL 1,000 mg In 115.434 Empty Bag 1 bag @ 15 MCG/ KG/MIN 8.712 mls/hr IV . [id number] [facility] Rx#:[id number] propofoL 1,000 mg In 300.000 266.695 174.246 Empty Bag 1 bag @ 15 MCG/ KG/MIN 8.712 mls/hr IV . [id number] [facility] Rx#:[id number] Tube Feeding 600 365 175 Hemodialysis 400 400 Other 90 60 60 Output: Urine 105 360 95 Stool 252 100 Hemodialysis 1400 2900 Other: Voiding Method Indwelling Catheter Indwelling Catheter ABP, PAP, CO, CI - Last Documented Arterial Blood Pressure 124/46 - Labs CBC & Chem 7: 09/23/23 04:55 09/23/23 04:55 Labs: Abnormal Lab Results - Last 24 Hours (Table) 09/22/23 09/22/23 09/22/23 Range/Units 14:15 14:15 18:08 RBC (4.30-5.90) m/uL Hgb (13.0-17.5) gm/dL Hct (39.0-53.0) % MCHC (31.0-37.0) g/dL Neutrophils # (1.3-7.7) k/uL Lymphocytes # (1.0-4.8) k/uL ABG pH (7.35-7.45) ABG pO2 (83-108) mmHg ABG O2 Saturation (94-97) % Chloride (98-107) mmol/L Carbon Dioxide (22-30) mmol/L BUN (9-20) mg/dL Creatinine (0.66-1.25) mg/dL Glucose (74-99) mg/dL POC Glucose (mg/dL) 176 H (70-110) mg/dL Calcium (8.4-10.2) mg/dL Phosphorus 5.5 H (2.5-4.5) mg/dL Hep Bs Antibody A (Negative) 09/22/23 09/23/23 09/23/23 Range/Units 23:58 04:55 04:55 RBC 2.73 L (4.30-5.90) m/uL Hgb 8.2 L (13.0-17.5) gm/dL Hct 26.7 L (39.0-53.0) % MCHC 30.8 L (31.0-37.0) g/dL Neutrophils # 7.9 H (1.3-7.7) k/uL Lymphocytes # 0.5 L (1.0-4.8) k/uL ABG pH (7.35-7.45) ABG pO2 (83-108) mmHg ABG O2 Saturation (94-97) % Chloride 113 H (98-107) mmol/L Carbon Dioxide 21 L (22-30) mmol/L BUN 42 H (9-20) mg/dL Creatinine 3.07 H (0.66-1.25) mg/dL Glucose 164 H (74-99) mg/dL POC Glucose (mg/dL) 193 H (70-110) mg/dL Calcium 7.2 L (8.4-10.2) mg/dL Phosphorus (2.5-4.5) mg/dL Hep Bs Antibody (Negative) 09/23/23 09/23/23 09/23/23 Range/Units 05:01 06:17 11:54 RBC (4.30-5.90) m/uL Hgb (13.0-17.5) gm/dL Hct (39.0-53.0) % MCHC (31.0-37.0) g/dL Neutrophils # (1.3-7.7) k/uL Lymphocytes # (1.0-4.8) k/uL ABG pH 7.32 L (7.35-7.45) ABG pO2 70 L (83-108) mmHg ABG O2 Saturation 93.6 L (94-97) % Chloride (98-107) mmol/L Carbon Dioxide (22-30) mmol/L BUN (9-20) mg/dL Creatinine (0.66-1.25) mg/dL Glucose (74-99) mg/dL POC Glucose (mg/dL) 179 H 133 H (70-110) mg/dL Calcium (8.4-10.2) mg/dL Phosphorus (2.5-4.5) mg/dL Hep Bs Antibody (Negative) Microbiology - Last 24 Hours (Table) 09/20/23 14:55 Blood Culture - Preliminary Blood 09/19/23 15:30 Acid Fast Bacilli Smear - Preliminary Bronchial Washings - Random 09/19/23 15:30 Gram Stain - Final Bronchial Washings - Random Bronchial Washings Culture - Final Lisa albicans
[2023-09-23] MEDS: FUROSEMIDE 10 MG/ML 10 ML VIAL IV SCH (15:07)
--- NOTE | 2023-09-23 15:25 | P.PN ---
Subjective Progress Note Date: 09/23/23 Principal diagnosis: Reason for follow-up is fever Patient is a 67-year-old male with a past medical history significant for coronary disease diabetes mellitus AK seizure disorder history of diabetic foot infection status post bilateral big toe amputation presenting to the hospital with unresponsiveness patient was initially hypothermic subsequently started spiking fever initial workup with a chest x-ray and urine was negative. On today's evaluation that is 09/23/2023,the patient remains to be afebrile, patient is on ventilator FiO2 is currently stable at 50% patient is undergoing dialysis and has been tolerating it apparently 1 L of fluid was removed yesterday with a goal to remove 2 L today patient is hemodynamically stable no significant purulent secretions through the ET or any other changes reported by the nursing staff. Patient white count 9.1, creatinine 3.07 Objective - Vital Signs Vital signs: Vital Signs Temp 98 F 09/23/23 13:36 Pulse 85 09/23/23 15:23 Resp 25 H 09/23/23 14:00 BP 136/68 09/23/23 14:00 Pulse Ox 88 L 09/23/23 14:00 FiO2 50 09/23/23 15:08 Intake & Output 09/22/23 09/23/23 09/23/23 18:59 06:59 18:59 Intake Total 2618.101 3875.508 4432.000 Output Total 3351 343 2931 Balance 861.101 843.807 -1540.000 Weight 96.8 kg Intake: IV 682 409 191 0.9 sodium chloride 310 120 70 Furosemide 100 mg In 130 120 Sodium Chloride 0.9% 90 ml @ 10 MG/HR 10 mls/hr IV .Q10H [facility] Rx#: [id number] Piperacillin-Tazobactam 3 200 100 100 .375 gm In Sodium Chloride 0.9% 100 ml @ 25 mls/hr IVPB Q8HR [facility] Rx# :[id number] Pressure Bag 42 69 21 Intake, IV Titration 846.101 469.807 566.000 Amount Furosemide 100 mg In 176.667 68.5 112 Sodium Chloride 0.9% 90 ml @ 10 MG/HR 10 mls/hr IV .Q10H [facility] Rx#: [id number] Norepinephrine 4 mg In 254.000 134.612 254.000 Sodium Chloride 0.9% 250 ml @ 0.03 MCG/KG/MIN 11. 064 mls/hr IV .[id number] [facility] Rx#:[id number] propofoL 1,000 mg In 115.434 Empty Bag 1 bag @ 15 MCG/ KG/MIN 8.712 mls/hr IV . [id number] [facility] Rx#:[id number] propofoL 1,000 mg In 300.000 266.695 200.000 Empty Bag 1 bag @ 15 MCG/ KG/MIN 8.712 mls/hr IV . [id number] [facility] Rx#:[id number] Tube Feeding 600 365 245 Hemodialysis 400 400 Other 90 60 60 Output: Urine 105 360 102 Stool 252 100 Hemodialysis 1400 2900 Other: Voiding Method Indwelling Catheter Indwelling Catheter Indwelling Catheter # Bowel Movements 50 ABP, PAP, CO, CI - Last Documented Arterial Blood Pressure 127/43 - Exam GENERAL DESCRIPTION: An elderly male intubated on the vent RESPIRATORY SYSTEM: Unlabored breathing , decreased breath sounds at bases HEART: S1 S2 regular rate and rhythm , ABDOMEN: Soft , no tenderness EXTREMITIES: No edema feet - Labs CBC & Chem 7: 09/23/23 04:55 09/23/23 04:55 Labs: Abnormal Lab Results - Last 24 Hours (Table) 09/22/23 09/22/23 09/22/23 Range/Units 14:15 18:08 23:58 RBC (4.30-5.90) m/uL Hgb (13.0-17.5) gm/dL Hct (39.0-53.0) % MCHC (31.0-37.0) g/dL Neutrophils # (1.3-7.7) k/uL Lymphocytes # (1.0-4.8) k/uL ABG pH (7.35-7.45) ABG pO2 (83-108) mmHg ABG O2 Saturation (94-97) % Chloride (98-107) mmol/L Carbon Dioxide (22-30) mmol/L BUN (9-20) mg/dL Creatinine (0.66-1.25) mg/dL Glucose (74-99) mg/dL POC Glucose (mg/dL) 176 H 193 H (70-110) mg/dL Calcium (8.4-10.2) mg/dL Hep Bs Antibody A (Negative) 09/23/23 09/23/23 09/23/23 Range/Units 04:55 04:55 05:01 RBC 2.73 L (4.30-5.90) m/uL Hgb 8.2 L (13.0-17.5) gm/dL Hct 26.7 L (39.0-53.0) % MCHC 30.8 L (31.0-37.0) g/dL Neutrophils # 7.9 H (1.3-7.7) k/uL Lymphocytes # 0.5 L (1.0-4.8) k/uL ABG pH (7.35-7.45) ABG pO2 (83-108) mmHg ABG O2 Saturation (94-97) % Chloride 113 H (98-107) mmol/L Carbon Dioxide 21 L (22-30) mmol/L BUN 42 H (9-20) mg/dL Creatinine 3.07 H (0.66-1.25) mg/dL Glucose 164 H (74-99) mg/dL POC Glucose (mg/dL) 179 H (70-110) mg/dL Calcium 7.2 L (8.4-10.2) mg/dL Hep Bs Antibody (Negative) 09/23/23 09/23/23 Range/Units 06:17 11:54 RBC (4.30-5.90) m/uL Hgb (13.0-17.5) gm/dL Hct (39.0-53.0) % MCHC (31.0-37.0) g/dL Neutrophils # (1.3-7.7) k/uL Lymphocytes # (1.0-4.8) k/uL ABG pH 7.32 L (7.35-7.45) ABG pO2 70 L (83-108) mmHg ABG O2 Saturation 93.6 L (94-97) % Chloride (98-107) mmol/L Carbon Dioxide (22-30) mmol/L BUN (9-20) mg/dL Creatinine (0.66-1.25) mg/dL Glucose (74-99) mg/dL POC Glucose (mg/dL) 133 H (70-110) mg/dL Calcium (8.4-10.2) mg/dL Hep Bs Antibody (Negative) Microbiology - Last 24 Hours (Table) 09/20/23 14:55 Blood Culture - Preliminary Blood Assessment and Plan (1) Fever Current Visit: Yes Status: Acute Code(s): R50.9 - FEVER, UNSPECIFIED SNOMED Code(s): 926722360 (2) Pneumonia Current Visit: Yes Status: Acute Code(s): J18.9 - PNEUMONIA, UNSPECIFIED ORGANISM SNOMED Code(s): 439156754 (3) Diarrhea Current Visit: Yes Status: Acute Code(s): R19.7 - DIARRHEA, UNSPECIFIED SNOMED Code(s): 59142137 Plan: 1patient with an episode of less responsiveness and concern for possible aspiration but the patient has been transferred back to the ICU patient is status post bronchoscopy and cultures are currently growing Lisa albicans 2patient did have resolution of his fever and the patient white count has normalized, 3-patient currently being treated with Zosyn to continue and monitor clinical course closely Dictation was produced using [employer] dictation software. please excuse any grammatical, word or spelling errors.
--- NOTE | 2023-09-23 16:41 | P.PN ---
Subjective Progress Note Date: 09/23/23 H&P Date: 09/08/23 Chief Complaint: DKA, hypotension, shock This is a 67-year-old gentleman with past medical history significant for diabetes mellitus, bilateral great toe amputations, CAD, KS, seizure disorder,intubated in the field, transferred from [place] [facility], admitted with significant DKA, hypotension, shock and multiple other medical issues. C urrently in the ICU, remains vent dependent on 35% FiO2 +5 of PEEP. Maintained on Levophed, bicarb, vasopressin, amiodarone and insulin drips as well as D5.45 NS IV fluids. Requiring Flores hugger. Patient has not seen PCP since June 2022, had proceeded to live at [facility] in [place]. ICU staff reports significant other reported that patient became unhappy living at the [facility], came to live with her, patient was sick for approximately 4 days and she discovered him unresponsive on her couch. Unresponsive with the exception of winces at noxious stimuli, no spontaneous eye-opening. Brain CT reported no acute intracranial hemorrhage or midline shift, mild diffuse age- related cerebral atrophy and moderate probable chronic small vessel ischemic change redemonstrated. ABGs on arrival reported pH 7.04, pCO2 25, pO2 204, bicarb 7, total CO2 8, O2 sat 99.7, base excess -22.6 on 35% FiO2. chest x-ray reported lungs clear, no infiltrates, cardiac silhouette size within normal limits. Outside toxicology reported as negative;serum alcohol less than 10. received 3 L crystalloids, 1 L saline bolus, 2 g bicarb in the ER with pressors initiated. Procalcitonin 0.29, WBC count 8.0, hemoglobin 14.4, platelets 127,Sodium 143,151, potassium 5.2, 3.2, chloride 115,124, bicarb less than 5, 18, anion gap unmeasurable, 9, BUN 134, 110, creatinine 4.29, 2.76, glucose 910, 332. Lactic 1.1. LFTs WNL. Ammonia less than 9. CPK 882, 1068. Troponin 0.084. NT BNP 2720. EKG reported normal sinus rhythm. UA positive for hyaline casts, ketones ,glucose, and protein. Negative for nitrates. No seizure activity reported. 09/09/2023 paroxysmal atrial fibrillation with RVR, maintained on amiodarone drip ,telemetry currently sinus rhythm. vasopressors weaned off late last night. Remains ventilator dependent with FiO2 35%/+5 of PEEP. Chest x-ray reported suspected underlying COPD, mild patchy medial basilar densities, likely atelectasis .echo reporting technically difficult study , moderately impaired LV function EF of 40-45%. Hemoglobin A1c 11.9. Continues on insulin drip. Anion gap 6, bicarb 17, blood sugars better controlled. Sodium 150, potassium 3.3 renal function improving, BUN 88, creatinine 1.9. Preliminary sputum culture growing gram-negative bacilli, presumptive Staph aureus, blood cultures in progress. Maxipime initiated. Brain CT repeated last night reporting no significant change from most recent prior CT. remains off of sedation, grimacin g to noxious stimuli. 09/10/2023 EEG reported abnormal, background slowing suggestive of severe ence phalopathy likely due to toxic metabolic derangement. Otherwise there is no focal slowing, epileptiform discharges or seizures on the EEG. Continues on Keppra -no seizure activity. Not following commands. Staff reports patient is opening eyes to voice. Grimaces to pain. Remains off pressors and vent dependent with FiO2 35%/+5 of PEEP. Chest x-ray pending. Tmax 100.3, normal WBC. Hemoglobin 11.4, platelets 49 . sputum culture reporting E. coli, Staphylococcus aureus/MSSA, strep agalactiae group B. Maintained on cefepime. Receiving IV fluid hydration of half-normal saline , sodium 152, chloride 128. renal function improving. bicarb 16, BUN 64, creatinine 1.46. On tube feeds of Glucerna ,blood sugars in the mid to low 200s, A1c 11.9. 09/15/2023 telemetry sinus rhythm. Continues on amiodarone, Farxiga. Anticoagulated on Eliquis. Confused this morning, alert and oriented to person, knows he is in the hospital but thinks he is in [place], [place]. Maintaining O2 sat of 94% on 2 L nasal cannula on cefepime and nebulized bronchodilators. Choking on applesauce during speech therapy's evaluation, modified barium swallow ordered. Blood sugars in the low 200s during the night, better controlled this morning, 132. Hemoglobin A1c 11.9. 09/16/2023 MBS results noted-speech therapy recommending ground meats, nectar liquids, no straw, liquids from cup, small bites and sips with direct supervision , sitting upright 90 degrees and ongoing speech therapy. O2 sats improved, 97% on 2 L nasal cannula. Maintained on cefepime as per ID, afebrile, normal WBC. Hemoglobin 10, platelets 146. Potassium 2.9-supplementation and magnesium level ordered. Blood sugars better controlled. Renal function stable. Telemetry sinus rhythm. PT pending. 09/17/2023 Maintained on cefepime.yesterday Ochoa catheter discontinued but patient developed urinary retention and Ochoa catheter reinserted .ongoing lower back and rectal pain. lumbar CT reported no evidence for spinal fracture, mo derate degeneration changes without evidence for significant spinal canal stenosis, moderate bilateral L5-S1 and L4-L5 neuroforaminal stenosis, bilateral lung consolidation possibly representing atelectasis with superimposed infection not excluded, trace right pleural effusion. Pelvis CT reporting circumferential wall thickening of the rectum/sigmoid colon , prominent mesenteric lymph nodes around the rectum also present direct visualization recommended to rule out mass, colonic diverticulosis, fat-containing right inguinal hernia, no evidence of fracture, mild to moderate bilateral hip osteoarthrosis and moderate degenerative changes of the spine. Vague historian, unsure of last colonoscopy. Denies nausea vomiting. Potassium 3.5-supplemented, renal function stable. 09/18/2023 continues to complain of back and rectal pain. Eliquis remains on hold, general surgery discussing colonoscopy for tomorrow. Renal function stable, Hemoglobin 10.2, platelets 193. Blood sugars controlled. 09/19/2023 Eliquis remains on hold. Patient initially was scheduled for colonoscopy today. patient developed increased difficulty swallowing, bowel prep and colonoscopy canceled by general surgery. General surgery scheduled patient for PEG tube placement for Friday. oxygen requirement increased from 2 to 6 L nasal cannula. Spotcheck reported O2 sat of 93% on 6 L nasal cannula. Chest x- ray from last night reported right lower lobe infiltrate, minimal right pleural effusion. As the morning progressed, respiratory status declined, BiPAP and ABGs ordered. Upon entering the room to apply BiPAP, patient unresponsive and A team called, intubated and transferred to ICU. 09/22/2023 remains vent dependent, FiO2 50%/+10 of PEEP. Chest x-ray reporting worsening bibasilar infiltrates. maintained on IV fluid hydration with saline at 100ml/hr, diprovan, Levophed and Lasix drips. Receiving tube feeds of Glucerna at goal via NG tube with minimal to no residuals. Worsening renal function, bic arb 16, BUN 46, creatinine 2.98. Renal ultrasound reported no evidence for hydronephrosis. bicarb as per nephrology. Vascular surgery consulted for temporary hemodialysis catheter. Bron washings reporting Lisa albicans, continues on Zosyn, fevers resolved, WBC within normal limits. 09/23/2023 yesterday temporary hemodialysis catheter placed-right groin; received hemodialysis yesterday. Tolerated well. Vent dependent, FiO2 50%/+10. Maintained on diprovan, Levophed, Lasix drips and tube feeds via OG. Fecal management system present. Afebrile, WBC within normal limits, hemoglobin 8.2, creatinine 3.07. Objective - Vital Signs Vital signs: Vital Signs Temp 98 F 09/23/23 13:36 Pulse 85 09/23/23 15:23 Resp 34 H 09/23/23 15:15 BP 140/73 09/23/23 15:15 Pulse Ox 90 L 09/23/23 15:15 FiO2 50 09/23/23 15:08 Intake & Output 09/22/23 09/23/23 09/23/23 18:59 06:59 18:59 Intake Total 2618.101 0893.656 5303.000 Output Total 5636 397 5862 Balance 861.101 843.807 -1497.000 Weight 96.8 kg Intake: IV 682 409 204 0.9 sodium chloride 310 120 80 Furosemide 100 mg In 130 120 Sodium Chloride 0.9% 90 ml @ 10 MG/HR 10 mls/hr IV .Q10H [facility] Rx#: [id number] Piperacillin-Tazobactam 3 200 100 100 .375 gm In Sodium Chloride 0.9% 100 ml @ 25 mls/hr IVPB Q8HR [facility] Rx# :[id number] Pressure Bag 42 69 24 Intake, IV Titration 846.101 469.807 566.000 Amount Furosemide 100 mg In 176.667 68.5 112 Sodium Chloride 0.9% 90 ml @ 10 MG/HR 10 mls/hr IV .Q10H [facility] Rx#: [id number] Norepinephrine 4 mg In 254.000 134.612 254.000 Sodium Chloride 0.9% 250 ml @ 0.03 MCG/KG/MIN 11. 064 mls/hr IV .[id number] [facility] Rx#:[id number] propofoL 1,000 mg In 115.434 Empty Bag 1 bag @ 15 MCG/ KG/MIN 8.712 mls/hr IV . [id number] [facility] Rx#:[id number] propofoL 1,000 mg In 300.000 266.695 200.000 Empty Bag 1 bag @ 15 MCG/ KG/MIN 8.712 mls/hr IV . [id number] [facility] Rx#:[id number] Tube Feeding 600 365 280 Hemodialysis 400 400 Other 90 60 60 Output: Urine 105 360 107 Stool 252 100 Hemodialysis 1400 2900 Other: Voiding Method Indwelling Catheter Indwelling Catheter Indwelling Catheter # Bowel Movements 50 ABP, PAP, CO, CI - Last Documented Arterial Blood Pressure 133/46 - Exam PHYSICAL EXAM: VITAL SIGNS: [As above] GENERAL: Sedated and intubated HEENT: Normocephalic, atraumatic, eyes normal NECK: Supple, no JVD. CARDIOVASCULAR: S1, S2 regular. Systolic murmur RESPIRATION: equal air entry, scattered rhonchi, bilateral bases diminished ABDOMEN: Soft, nondistended ,nontender , no rigidity. Scrotal edema. LEGS: Positive edema. prior bilateral great toe amputations. NERVOUS SYSTEM: Unable to assess, sedated and intubated Skin: Warm and dry. - Labs CBC & Chem 7: 09/23/23 04:55 09/23/23 04:55 Labs: Abnormal Lab Results - Last 24 Hours (Table) 09/22/23 09/22/23 09/22/23 Range/Units 14:15 18:08 23:58 RBC (4.30-5.90) m/uL Hgb (13.0-17.5) gm/dL Hct (39.0-53.0) % MCHC (31.0-37.0) g/dL Neutrophils # (1.3-7.7) k/uL Lymphocytes # (1.0-4.8) k/uL ABG pH (7.35-7.45) ABG pO2 (83-108) mmHg ABG O2 Saturation (94-97) % Chloride (98-107) mmol/L Carbon Dioxide (22-30) mmol/L BUN (9-20) mg/dL Creatinine (0.66-1.25) mg/dL Glucose (74-99) mg/dL POC Glucose (mg/dL) 176 H 193 H (70-110) mg/dL Calcium (8.4-10.2) mg/dL Hep Bs Antibody A (Negative) 09/23/23 09/23/23 09/23/23 Range/Units 04:55 04:55 05:01 RBC 2.73 L (4.30-5.90) m/uL Hgb 8.2 L (13.0-17.5) gm/dL Hct 26.7 L (39.0-53.0) % MCHC 30.8 L (31.0-37.0) g/dL Neutrophils # 7.9 H (1.3-7.7) k/uL Lymphocytes # 0.5 L (1.0-4.8) k/uL ABG pH (7.35-7.45) ABG pO2 (83-108) mmHg ABG O2 Saturation (94-97) % Chloride 113 H (98-107) mmol/L Carbon Dioxide 21 L (22-30) mmol/L BUN 42 H (9-20) mg/dL Creatinine 3.07 H (0.66-1.25) mg/dL Glucose 164 H (74-99) mg/dL POC Glucose (mg/dL) 179 H (70-110) mg/dL Calcium 7.2 L (8.4-10.2) mg/dL Hep Bs Antibody (Negative) 09/23/23 09/23/23 Range/Units 06:17 11:54 RBC (4.30-5.90) m/uL Hgb (13.0-17.5) gm/dL Hct (39.0-53.0) % MCHC (31.0-37.0) g/dL Neutrophils # (1.3-7.7) k/uL Lymphocytes # (1.0-4.8) k/uL ABG pH 7.32 L (7.35-7.45) ABG pO2 70 L (83-108) mmHg ABG O2 Saturation 93.6 L (94-97) % Chloride (98-107) mmol/L Carbon Dioxide (22-30) mmol/L BUN (9-20) mg/dL Creatinine (0.66-1.25) mg/dL Glucose (74-99) mg/dL POC Glucose (mg/dL) 133 H (70-110) mg/dL Calcium (8.4-10.2) mg/dL Hep Bs Antibody (Negative) Microbiology - Last 24 Hours (Table) 09/20/23 14:55 Blood Culture - Preliminary Blood Assessment and Plan Assessment: Acute hypoxic and hypercapnic respiratory failure, status post reintubation on 09/19/2023 secondary to aspiration pneumonia Septic shock, hypotension secondary to aspiration pneumonia, status post multiple fluid boluses, pressor dependent Acute rhabdomyolysis Acute renal failure, secondary to ATN, worsening, status post placement of temporary right femoral HD catheter placement, on hemodialysis. Metabolic acidosis secondary to the above Fevers secondary to the above, resolved Sepsis, secondary to all the above, on cefepime, resolved. Hypothermia secondary to the above. Acute left lower lobe pneumonia as per pulmonary, initial sputum culture, polymicrobial, reporting E. coli, Staphylococcus aureus-MSSA, strep agalactiae group B. Bronc washings 09/18 reporting Lisa albicans Dysphagia, delayed swallowing, MBS completed-speech recommending dysphagia level 2 diet, one-to-one supervision, aspiration precautions Rectal pain, wall thickening of the rectum/sigmoid colon reported per CT Fat-containing right inguinal hernia reported per CT Thrombocytopenia Paroxysmal atrial fibrillation Acute metabolic encephalopathy secondary to all the above, suspect anoxic. Brain CT did not report any acute abnormalities, EEG reported slowing suggestive of severe encephalopathy likely due to toxic metabolic derangement. Elevated troponin, multifactorial secondary to all the above, ACS ruled out,Type II KS as per cardiology. Severe dehydration Diabetes mellitus type 2, hemoglobin A1c 11.9 CAD, history of KS, stent History of seizure disorder, on Keppra Stage I pressure ulcer, 1 cm near rectum Fungal rash, anterior scrotum Acute DKA, anion gap closed , resolved Hypovolemic shock, status post pressor dependent, resolved Acute hypoxic respiratory failure secondary to the above, reintubated 09/19/2023 Severe anion gap metabolic acidosis secondary to the above, status post bicarb drip. Hyperchloremic hypernatremia, resolved. Plan: Continue on current medication resume ,monitoring and symptomatic treatment. Sedation holiday as per pulmonary/intensivst. hemodialysis, bicarb as per nephrology. IV antibiotics as per ID prognosis guarded given multiple complex medical issues. The impression and plan of care has been dictated as directed. : I performed a history and examination of this patient, discussed the same with the dictator. I agree with the dictator's note ,documented as a scribe. Any additional findings or plans will be noted.
[2023-09-23 18:01] LABS: Glucose,Whole Blood 154 mg/dL (70-110)
[2023-09-23 20:44] LABS: Glucose,Whole Blood 190 mg/dL (70-110)
[2023-09-23] MEDS: ACETAMINOPHEN TAB 325 MG TAB PO PRN (20:52)
[2023-09-23 23:30] LABS: Glucose,Whole Blood 221 mg/dL (70-110)
[2023-09-23 23:39] LABS: Glucose,Whole Blood 207 mg/dL (70-110)
[2023-09-24 05:25] LABS: Basophils % (A) 0 %; Eosinophils # (A) 0.1 k/uL (0-0.7); Eosinophils % (A) 1 %; HGB 8.3 gm/dL (13.0-17.5); Hypochromasia Marked; Lymphocytes # (A) 0.9 k/uL (1.0-4.8); Lymphocytes % (A) 7 %; MCH 29.7 pg (25.0-35.0); MCHC 30.7 g/dL (31.0-37.0); MCV 96.9 fL (80.0-100.0); Mean Platelet Volume 9.7; Monocytes # (A) 1.3 k/uL (0-1.0); Monocytes % (A) 10 %; Neutrophils % (A) 82 %; Platelet Count 230 k/uL (150-450); RBC 2.78 m/uL (4.30-5.90); RDW 13.9 % (11.5-15.5); WBC 13.4 k/uL (3.8-10.6)
[2023-09-24 05:46] LABS: African American GFR (CKD) 23 (>60 ml/min/1.73 sqM); Anion Gap 10 mmol/L; Blood Urea Nitrogen 40 mg/dL (9-20); Calcium 7.5 mg/dL (8.4-10.2); Carbon Dioxide 21 mmol/L (22-30); Chloride 108 mmol/L (98-107); Glucose 194 mg/dL (74-99); Magnesium 2.2 mg/dL (1.6-2.3); Non-African American GFR(CKD) 20 (>60 ml/min/1.73 sqM); Potassium 4.4 mmol/L (3.5-5.1); Sodium 139 mmol/L (137-145)
[2023-09-24 05:50] LABS: Glucose,Whole Blood 212 mg/dL (70-110)
[2023-09-24 06:07] LABS: ABG Base Excess -1.7 mmol/L; ABG HCO3 24 mmol/L (21-25); ABG Oxygen Saturation 94.2 % (94-97); ABG PCO2 43 mmHg (35-45); ABG PH 7.35 (7.35-7.45); ABG PO2 70 mmHg (83-108); ABG TCO2 25 mmol/L (19-24); Allen Test Performed? Yes
--- NOTE | 2023-09-24 06:57 | XR ---
EXAMINATION TYPE: XR chest 1V portable DATE OF EXAM: 09/24/2023 COMPARISON: 09/23/2023 INDICATION: Mechanical ventilation difficulty breathing TECHNIQUE: Single frontal view of the chest is obtained. FINDINGS: The heart size is normal. The pulmonary vasculature is normal. Bibasilar infiltrates are present. Endotracheal tube tip is above the mahesh. Nasogastric tube transverses the thorax. Central venous ca theter has its tip in the superior vena cava region IMPRESSION: 1. Bibasilar infiltrates improving. 2. Lines and catheters discussed above.
--- NOTE | 2023-09-24 10:15 | P.PN ---
Subjective Progress Note Date: 09/24/23 H&P Date: 09/08/23 Chief Complaint: DKA, hypotension, shock This is a 67-year-old gentleman with past medical history significant for diabetes mellitus, bilateral great toe amputations, CAD, WA, seizure disorder,intubated in the field, transferred from [place] [facility], admitted with significant DKA, hypotension, shock and multiple other medical issues. C urrently in the ICU, remains vent dependent on 35% FiO2 +5 of PEEP. Maintained on Levophed, bicarb, vasopressin, amiodarone and insulin drips as well as D5.45 NS IV fluids. Requiring Flores hugger. Patient has not seen PCP since June 2022, had proceeded to live at [facility] in [place]. ICU staff reports significant other reported that patient became unhappy living at the [facility], came to live with her, patient was sick for approximately 4 days and she discovered him unresponsive on her couch. Unresponsive with the exception of winces at noxious stimuli, no spontaneous eye-opening. Brain CT reported no acute intracranial hemorrhage or midline shift, mild diffuse age- related cerebral atrophy and moderate probable chronic small vessel ischemic change redemonstrated. ABGs on arrival reported pH 7.04, pCO2 25, pO2 204, bicarb 7, total CO2 8, O2 sat 99.7, base excess -22.6 on 35% FiO2. chest x-ray reported lungs clear, no infiltrates, cardiac silhouette size within normal limits. Outside toxicology reported as negative;serum alcohol less than 10. received 3 L crystalloids, 1 L saline bolus, 2 g bicarb in the ER with pressors initiated. Procalcitonin 0.29, WBC count 8.0, hemoglobin 14.4, platelets 127,Sodium 143,151, potassium 5.2, 3.2, chloride 115,124, bicarb less than 5, 18, anion gap unmeasurable, 9, BUN 134, 110, creatinine 4.29, 2.76, glucose 910, 332. Lactic 1.1. LFTs WNL. Ammonia less than 9. CPK 882, 1068. Troponin 0.084. NT BNP 2720. EKG reported normal sinus rhythm. UA positive for hyaline casts, ketones ,glucose, and protein. Negative for nitrates. No seizure activity reported. 09/09/2023 paroxysmal atrial fibrillation with RVR, maintained on amiodarone drip ,telemetry currently sinus rhythm. vasopressors weaned off late last night. Remains ventilator dependent with FiO2 35%/+5 of PEEP. Chest x-ray reported suspected underlying COPD, mild patchy medial basilar densities, likely atelectasis .echo reporting technically difficult study , moderately impaired LV function EF of 40-45%. Hemoglobin A1c 11.9. Continues on insulin drip. Anion gap 6, bicarb 17, blood sugars better controlled. Sodium 150, potassium 3.3 renal function improving, BUN 88, creatinine 1.9. Preliminary sputum culture growing gram-negative bacilli, presumptive Staph aureus, blood cultures in progress. Maxipime initiated. Brain CT repeated last night reporting no significant change from most recent prior CT. remains off of sedation, grimacin g to noxious stimuli. 09/10/2023 EEG reported abnormal, background slowing suggestive of severe ence phalopathy likely due to toxic metabolic derangement. Otherwise there is no focal slowing, epileptiform discharges or seizures on the EEG. Continues on Keppra -no seizure activity. Not following commands. Staff reports patient is opening eyes to voice. Grimaces to pain. Remains off pressors and vent dependent with FiO2 35%/+5 of PEEP. Chest x-ray pending. Tmax 100.3, normal WBC. Hemoglobin 11.4, platelets 49 . sputum culture reporting E. coli, Staphylococcus aureus/MSSA, strep agalactiae group B. Maintained on cefepime. Receiving IV fluid hydration of half-normal saline , sodium 152, chloride 128. renal function improving. bicarb 16, BUN 64, creatinine 1.46. On tube feeds of Glucerna ,blood sugars in the mid to low 200s, A1c 11.9. 09/15/2023 telemetry sinus rhythm. Continues on amiodarone, Farxiga. Anticoagulated on Eliquis. Confused this morning, alert and oriented to person, knows he is in the hospital but thinks he is in [place], [place]. Maintaining O2 sat of 94% on 2 L nasal cannula on cefepime and nebulized bronchodilators. Choking on applesauce during speech therapy's evaluation, modified barium swallow ordered. Blood sugars in the low 200s during the night, better controlled this morning, 132. Hemoglobin A1c 11.9. 09/16/2023 MBS results noted-speech therapy recommending ground meats, nectar liquids, no straw, liquids from cup, small bites and sips with direct supervision , sitting upright 90 degrees and ongoing speech therapy. O2 sats improved, 97% on 2 L nasal cannula. Maintained on cefepime as per ID, afebrile, normal WBC. Hemoglobin 10, platelets 146. Potassium 2.9-supplementation and magnesium level ordered. Blood sugars better controlled. Renal function stable. Telemetry sinus rhythm. PT pending. 09/17/2023 Maintained on cefepime.yesterday Ochoa catheter discontinued but patient developed urinary retention and Ochoa catheter reinserted .ongoing lower back and rectal pain. lumbar CT reported no evidence for spinal fracture, mo derate degeneration changes without evidence for significant spinal canal stenosis, moderate bilateral L5-S1 and L4-L5 neuroforaminal stenosis, bilateral lung consolidation possibly representing atelectasis with superimposed infection not excluded, trace right pleural effusion. Pelvis CT reporting circumferential wall thickening of the rectum/sigmoid colon , prominent mesenteric lymph nodes around the rectum also present direct visualization recommended to rule out mass, colonic diverticulosis, fat-containing right inguinal hernia, no evidence of fracture, mild to moderate bilateral hip osteoarthrosis and moderate degenerative changes of the spine. Vague historian, unsure of last colonoscopy. Denies nausea vomiting. Potassium 3.5-supplemented, renal function stable. 09/18/2023 continues to complain of back and rectal pain. Eliquis remains on hold, general surgery discussing colonoscopy for tomorrow. Renal function stable, Hemoglobin 10.2, platelets 193. Blood sugars controlled. 09/19/2023 Eliquis remains on hold. Patient initially was scheduled for colonoscopy today. patient developed increased difficulty swallowing, bowel prep and colonoscopy canceled by general surgery. General surgery scheduled patient for PEG tube placement for Friday. oxygen requirement increased from 2 to 6 L nasal cannula. Spotcheck reported O2 sat of 93% on 6 L nasal cannula. Chest x- ray from last night reported right lower lobe infiltrate, minimal right pleural effusion. As the morning progressed, respiratory status declined, BiPAP and ABGs ordered. Upon entering the room to apply BiPAP, patient unresponsive and A team called, intubated and transferred to ICU. 09/22/2023 remains vent dependent, FiO2 50%/+10 of PEEP. Chest x-ray reporting worsening bibasilar infiltrates. maintained on IV fluid hydration with saline at 100ml/hr, diprovan, Levophed and Lasix drips. Receiving tube feeds of Glucerna at goal via NG tube with minimal to no residuals. Worsening renal function, bic arb 16, BUN 46, creatinine 2.98. Renal ultrasound reported no evidence for hydronephrosis. bicarb as per nephrology. Vascular surgery consulted for temporary hemodialysis catheter. [facility] washings reporting Lisa albicans, continues on Zosyn, fevers resolved, WBC within normal limits. 09/23/2023 yesterday temporary hemodialysis catheter placed-right groin; received hemodialysis yesterday. Tolerated well. Vent dependent, FiO2 50%/+10. Maintained on diprovan, Levophed, Lasix drips and tube feeds via OG. Fecal management system present. Afebrile, WBC within normal limits, hemoglobin 8.2, creatinine 3.07. 09/24/2023 telemetry sinus rhythm. Sedation holiday attempted yesterday; staff reports patient became tachypneic, asynchronous with the vent, using accessory muscles. Remains vent dependent, FiO2 50%/+10 of PEEP. Maintained on propofol and Levophed drips. Lasix drip transition to IV push yesterday as per nephrology. Urine output decreased. FMS output decreased .hemodialysis yesterday, tolerated well and scheduled again for today. Continues on Zosyn, procalcitonin increased to 5.47. Suctioning thick creamy rivera sputum from ET tube. WBC 13.4, Tmax 101.3. Objective - Vital Signs Vital signs: Vital Signs Temp 99.9 F H 09/24/23 04:00 Pulse 74 09/24/23 08:02 Resp 26 H 09/24/23 07:00 BP 138/65 09/23/23 19:45 Pulse Ox 95 09/24/23 07:00 FiO2 50 09/24/23 08:00 Intake & Output 09/23/23 09/24/23 09/24/23 18:59 06:59 18:59 Intake Total 3336.400 5315.439 19.393 Output Total 3022 60 20 Balance -5673.955 9882.439 -0.607 Intake: IV 243 156 13 0.9 sodium chloride 110 120 10 Piperacillin-Tazobactam 3 100 .375 gm In Sodium Chloride 0.9% 100 ml @ 25 mls/hr IVPB Q8HR [facility] Rx# :[id number] Pressure Bag 33 36 3 Intake, IV Titration 767.656 621.439 6.393 Amount Furosemide 100 mg In 112 Sodium Chloride 0.9% 90 ml @ 10 MG/HR 10 mls/hr IV .Q10H [facility] Rx#: [id number] Norepinephrine 4 mg In 356.775 443.999 6.393 Sodium Chloride 0.9% 250 ml @ 0.03 MCG/KG/MIN 11. 064 mls/hr IV .[id number] [facility] Rx#:[id number] propofoL 1,000 mg In 298.881 177.440 Empty Bag 1 bag @ 15 MCG/ KG/MIN 8.712 mls/hr IV . [id number] [facility] Rx#:[id number] Tube Feeding 385 420 Hemodialysis 400 Other 90 90 Output: Urine 122 60 20 Hemodialysis 2900 Other: Voiding Method Indwelling Catheter Indwelling Catheter # Bowel Movements 50 ABP, PAP, CO, CI - Last Documented Arterial Blood Pressure 168/47 - Exam PHYSICAL EXAM: VITAL SIGNS: [As above] GENERAL: Sedated and intubated HEENT: Normocephalic, atraumatic, eyes normal NECK: Supple, no JVD. CARDIOVASCULAR: S1, S2 regular. Systolic murmur RESPIRATION: Unlabored, equal air entry, bilateral bases diminished ABDOMEN: Soft, nondistended ,nontender , no rigidity. Scrotal edema. LEGS: Positive edema. prior bilateral great toe amputations. NERVOUS SYSTEM: Unable to assess, sedated and intubated Skin: Warm and dry. Microbiology 09/20/23 14:55 Blood Blood Culture - Preliminary 09/19/23 15:30 Bronchial Washings - Random Acid Fast Bacilli Smear - Preliminary 09/19/23 15:30 Bronchial Washings - Random Gram Stain - Final 09/19/23 15:30 Bronchial Washings - Random Bronchial Washings Culture - Final Lisa albicans 09/11/23 10:16 Blood Blood Culture - Final 09/07/23 23:15 Blood Blood Culture - Final 09/08/23 02:40 Sputum Gram Stain - Final 09/08/23 02:40 Sputum Sputum Culture - Final Escherichia coli Staphylococcus aureus Strep agalactiae - (group b) - Labs CBC & Chem 7: 09/24/23 04:40 09/24/23 04:40 Labs: Abnormal Lab Results - Last 24 Hours (Table) 09/23/23 09/23/23 09/23/23 Range/Units 04:55 11:54 17:59 WBC (3.8-10.6) k/uL RBC (4.30-5.90) m/uL Hgb (13.0-17.5) gm/dL Hct (39.0-53.0) % MCHC (31.0-37.0) g/dL Neutrophils # (1.3-7.7) k/uL Lymphocytes # (1.0-4.8) k/uL Monocytes # (0-1.0) k/uL ABG pO2 (83-108) mmHg ABG Total CO2 (19-24) mmol/L Chloride (98-107) mmol/L Carbon Dioxide (22-30) mmol/L BUN (9-20) mg/dL Creatinine (0.66-1.25) mg/dL Glucose (74-99) mg/dL POC Glucose (mg/dL) 133 H 154 H (70-110) mg/dL Calcium (8.4-10.2) mg/dL Procalcitonin 5.47 H (0.02-0.09) ng/mL 09/23/23 09/23/23 09/23/23 Range/Units 20:43 23:29 23:38 WBC (3.8-10.6) k/uL RBC (4.30-5.90) m/uL Hgb (13.0-17.5) gm/dL Hct (39.0-53.0) % MCHC (31.0-37.0) g/dL Neutrophils # (1.3-7.7) k/uL Lymphocytes # (1.0-4.8) k/uL Monocytes # (0-1.0) k/uL ABG pO2 (83-108) mmHg ABG Total CO2 (19-24) mmol/L Chloride (98-107) mmol/L Carbon Dioxide (22-30) mmol/L BUN (9-20) mg/dL Creatinine (0.66-1.25) mg/dL Glucose (74-99) mg/dL POC Glucose (mg/dL) 190 H 221 H 207 H (70-110) mg/dL Calcium (8.4-10.2) mg/dL Procalcitonin (0.02-0.09) ng/mL 09/24/23 09/24/23 09/24/23 Range/Units 04:40 04:40 05:48 WBC 13.4 H (3.8-10.6) k/uL RBC 2.78 L (4.30-5.90) m/uL Hgb 8.3 L (13.0-17.5) gm/dL Hct 27.0 L (39.0-53.0) % MCHC 30.7 L (31.0-37.0) g/dL Neutrophils # 11.0 H (1.3-7.7) k/uL Lymphocytes # 0.9 L (1.0-4.8) k/uL Monocytes # 1.3 H (0-1.0) k/uL ABG pO2 (83-108) mmHg ABG Total CO2 (19-24) mmol/L Chloride 108 H (98-107) mmol/L Carbon Dioxide 21 L (22-30) mmol/L BUN 40 H (9-20) mg/dL Creatinine 3.11 H (0.66-1.25) mg/dL Glucose 194 H (74-99) mg/dL POC Glucose (mg/dL) 212 H (70-110) mg/dL Calcium 7.5 L (8.4-10.2) mg/dL Procalcitonin (0.02-0.09) ng/mL 09/24/23 Range/Units 06:03 WBC (3.8-10.6) k/uL RBC (4.30-5.90) m/uL Hgb (13.0-17.5) gm/dL Hct (39.0-53.0) % MCHC (31.0-37.0) g/dL Neutrophils # (1.3-7.7) k/uL Lymphocytes # (1.0-4.8) k/uL Monocytes # (0-1.0) k/uL ABG pO2 70 L (83-108) mmHg ABG Total CO2 25 H (19-24) mmol/L Chloride (98-107) mmol/L Carbon Dioxide (22-30) mmol/L BUN (9-20) mg/dL Creatinine (0.66-1.25) mg/dL Glucose (74-99) mg/dL POC Glucose (mg/dL) (70-110) mg/dL Calcium (8.4-10.2) mg/dL Procalcitonin (0.02-0.09) ng/mL Microbiology - Last 24 Hours (Table) 09/20/23 14:55 Blood Culture - Preliminary Blood Assessment and Plan Assessment: Acute hypoxic and hypercapnic respiratory failure, status post reintubation on 09/19/2023 secondary to aspiration pneumonia Septic shock, hypotension secondary to aspiration pneumonia, status post multiple fluid boluses, pressor dependent Acute rhabdomyolysis Acute renal failure, secondary to ATN, worsening, status post placement of temporary right femoral HD catheter placement, on hemodialysis. Metabolic acidosis secondary to the above Fevers secondary to the above, resolved Sepsis, secondary to all the above, on cefepime, resolved. Hypothermia secondary to the above. Acute left lower lobe pneumonia as per pulmonary, initial sputum culture, polymicrobial, reporting E. coli, Staphylococcus aureus-MSSA, strep agalactiae group B. Bronc washings 09/18 reporting Lisa albicans Dysphagia, delayed swallowing, MBS completed-speech recommending dysphagia level 2 diet, one-to-one supervision, aspiration precautions Rectal pain, wall thickening of the rectum/sigmoid colon reported per CT Fat-containing right inguinal hernia reported per CT Thrombocytopenia Paroxysmal atrial fibrillation Acute metabolic encephalopathy secondary to all the above, suspect anoxic. Brain CT did not report any acute abnormalities, EEG reported slowing suggestive of severe encephalopathy likely due to toxic metabolic derangement. Elevated troponin, multifactorial secondary to all the above, ACS ruled out,Type II WA as per cardiology. Severe dehydration Diabetes mellitus type 2, hemoglobin A1c 11.9 CAD, history of WA, stent History of seizure disorder, on Keppra Stage I pressure ulcer, 1 cm near rectum Fungal rash, anterior scrotum Acute DKA, anion gap closed , resolved Hypovolemic shock, status post pressor dependent, resolved Acute hypoxic respiratory failure secondary to the above, reintubated 09/19/2023 Severe anion gap metabolic acidosis secondary to the above, status post bicarb drip. Hyperchloremic hypernatremia, resolved. Plan: Continue on current medication resume ,monitoring and symptomatic treatment. Repeat sputum culture ordered. hemodialysis as per nephrology. IV antibiotics as per ID. Elevate scrotum. prognosis guarded given multiple comp jose maria medical issues. The impression and plan of care has been dictated as directed. : I performed a history and examination of this patient, discussed the same with the dictator. I agree with the dictator's note ,documented as a scribe. Any additional findings or plans will be noted.
--- NOTE | 2023-09-24 10:48 | P.PN ---
Subjective Patient is seen in follow-up for acute kidney injury. Started on hemodialysis September 22, 2023. Tolerating dialysis well. Oliguric. Vital signs are stable. General: Resting in bed. HEENT: Intubated. LUNGS: Scattered rhonchi. HEART: Rate and Rhythm are regular. ABDOMEN: No distention. EXTREMITITES: 2+ edema. Scrotal edema noted. Objective - Vital Signs Vital signs: Vital Signs Temp 99.9 F H 09/24/23 04:00 Pulse 81 09/24/23 09:45 Resp 31 H 09/24/23 09:45 BP 138/65 09/23/23 19:45 Pulse Ox 96 09/24/23 09:45 FiO2 50 09/24/23 08:00 Intake & Output 09/23/23 09/24/23 09/24/23 18:59 06:59 18:59 Intake Total 9170.746 6513.439 156.132 Output Total 3022 60 20 Balance -9310.396 2524.439 136.132 Intake: IV 243 156 39 0.9 sodium chloride 110 120 30 Piperacillin-Tazobactam 3 100 .375 gm In Sodium Chloride 0.9% 100 ml @ 25 mls/hr IVPB Q8HR [facility] Rx# :[id number] Pressure Bag 33 36 9 Intake, IV Titration 767.656 621.439 117.132 Amount Furosemide 100 mg In 112 Sodium Chloride 0.9% 90 ml @ 10 MG/HR 10 mls/hr IV .Q10H [facility] Rx#: [id number] Norepinephrine 4 mg In 356.775 443.999 6.393 Sodium Chloride 0.9% 250 ml @ 0.03 MCG/KG/MIN 11. 064 mls/hr IV .[id number] [facility] Rx#:[id number] propofoL 1,000 mg In 298.881 177.440 110.739 Empty Bag 1 bag @ 15 MCG/ KG/MIN 8.712 mls/hr IV . [id number] [facility] Rx#:[id number] Tube Feeding 385 420 Hemodialysis 400 Other 90 90 Output: Urine 122 60 20 Hemodialysis 2900 Other: Voiding Method Indwelling Catheter Indwelling Catheter Indwelling Catheter # Bowel Movements 50 50 ABP, PAP, CO, CI - Last Documented Arterial Blood Pressure 162/52 - Labs CBC & Chem 7: 09/24/23 04:40 09/24/23 04:40 Labs: Abnormal Lab Results - Last 24 Hours (Table) 09/23/23 09/23/23 09/23/23 Range/Units 04:55 11:54 17:59 WBC (3.8-10.6) k/uL RBC (4.30-5.90) m/uL Hgb (13.0-17.5) gm/dL Hct (39.0-53.0) % MCHC (31.0-37.0) g/dL Neutrophils # (1.3-7.7) k/uL Lymphocytes # (1.0-4.8) k/uL Monocytes # (0-1.0) k/uL ABG pO2 (83-108) mmHg ABG Total CO2 (19-24) mmol/L Chloride (98-107) mmol/L Carbon Dioxide (22-30) mmol/L BUN (9-20) mg/dL Creatinine (0.66-1.25) mg/dL Glucose (74-99) mg/dL POC Glucose (mg/dL) 133 H 154 H (70-110) mg/dL Calcium (8.4-10.2) mg/dL Procalcitonin 5.47 H (0.02-0.09) ng/mL 09/23/23 09/23/23 09/23/23 Range/Units 20:43 23:29 23:38 WBC (3.8-10.6) k/uL RBC (4.30-5.90) m/uL Hgb (13.0-17.5) gm/dL Hct (39.0-53.0) % MCHC (31.0-37.0) g/dL Neutrophils # (1.3-7.7) k/uL Lymphocytes # (1.0-4.8) k/uL Monocytes # (0-1.0) k/uL ABG pO2 (83-108) mmHg ABG Total CO2 (19-24) mmol/L Chloride (98-107) mmol/L Carbon Dioxide (22-30) mmol/L BUN (9-20) mg/dL Creatinine (0.66-1.25) mg/dL Glucose (74-99) mg/dL POC Glucose (mg/dL) 190 H 221 H 207 H (70-110) mg/dL Calcium (8.4-10.2) mg/dL Procalcitonin (0.02-0.09) ng/mL 09/24/23 09/24/23 09/24/23 Range/Units 04:40 04:40 05:48 WBC 13.4 H (3.8-10.6) k/uL RBC 2.78 L (4.30-5.90) m/uL Hgb 8.3 L (13.0-17.5) gm/dL Hct 27.0 L (39.0-53.0) % MCHC 30.7 L (31.0-37.0) g/dL Neutrophils # 11.0 H (1.3-7.7) k/uL Lymphocytes # 0.9 L (1.0-4.8) k/uL Monocytes # 1.3 H (0-1.0) k/uL ABG pO2 (83-108) mmHg ABG Total CO2 (19-24) mmol/L Chloride 108 H (98-107) mmol/L Carbon Dioxide 21 L (22-30) mmol/L BUN 40 H (9-20) mg/dL Creatinine 3.11 H (0.66-1.25) mg/dL Glucose 194 H (74-99) mg/dL POC Glucose (mg/dL) 212 H (70-110) mg/dL Calcium 7.5 L (8.4-10.2) mg/dL Procalcitonin (0.02-0.09) ng/mL 09/24/23 Range/Units 06:03 WBC (3.8-10.6) k/uL RBC (4.30-5.90) m/uL Hgb (13.0-17.5) gm/dL Hct (39.0-53.0) % MCHC (31.0-37.0) g/dL Neutrophils # (1.3-7.7) k/uL Lymphocytes # (1.0-4.8) k/uL Monocytes # (0-1.0) k/uL ABG pO2 70 L (83-108) mmHg ABG Total CO2 25 H (19-24) mmol/L Chloride (98-107) mmol/L Carbon Dioxide (22-30) mmol/L BUN (9-20) mg/dL Creatinine (0.66-1.25) mg/dL Glucose (74-99) mg/dL POC Glucose (mg/dL) (70-110) mg/dL Calcium (8.4-10.2) mg/dL Procalcitonin (0.02-0.09) ng/mL Microbiology - Last 24 Hours (Table) 09/20/23 14:55 Blood Culture - Preliminary Blood Assessment and Plan Plan: Assessment: 1. Acute kidney injury secondary to ATN secondary to hypotension requiring vasopressor support. Baseline creatinine near 1 and is 3.011 today. Oliguric. No hydronephrosis noted on kidney ultrasound. Started on hemodialysis September 21 to 2023 via temporary catheter dialysis catheter. 2. Septic shock secondary to pneumonia on antibiotics. ID following. 3. Metabolic acidosis secondary to acute kidney injury and IV fluids. Stable. 4. Acute hypoxic respiratory failure secondary to pneumonia. Intubated. 5. DKA on presentation status post insulin drip. 6. Hyperphosphatemia secondary to acute kidney injury. Phosphorus level 5.5 dated September 22, 2023. 7. Volume overload. Plan: Currently seen while undergoing hemodialysis. Another treatment tomorrow. Challenge ultrafiltration. Maintain IV Lasix 80 mg twice daily. Maintain tube feeds. Continue to monitor renal function and urine output. Wean FiO2.
[2023-09-24 11:24] LABS: Glucose,Whole Blood 152 mg/dL (70-110)
--- NOTE | 2023-09-24 11:42 | P.PN ---
Subjective Principal diagnosis: Progress note dated 09/22/23 67-year-old male with past medical history significant for diabetes mellitus, prior toe amputations, hyperlipidemia, coronary artery disease with previous stents, and seizure disorder who presented to the ED on 09/06 with DKA unresponsive intubated and mechanically ventilated. Patient was admitted to the ICU for DKA, respiratory failure, and MARIANO. He remained in the ICU until 09/12 when he was transferred to the floors. On 09/18 he was scheduled for colonoscopy as well as PEG placement on 09/21. On 09/18 his O2 requirement increased from 2-6L NC. A Team was called and he was reintubated and transferred to the ICU. Patient was evaluated today on 09/18/2023, patient is about the same, continues to have some discomfort in his back and in his rectal area, supposed to have colonoscopy tomorrow. Eliquis remains on hold. Patient has no active pulmonary issues. WBC count is 8.6 hemoglobin 10.2 electrolytes are normal renal profile is normal The patient was seen today September 19, 2023 in follow-up on the selective care unit. Today he is found to be weak and obtunded. He is requiring more oxygen currently at 6 L high flow nasal cannula. A rapid response team was called on him. Chest x-ray and ABGs reviewed. He will be transferred to the intensive care unit. Serial blood gases on 100% FiO2 revealed a P O2 of 66, pCO2 of 49 and a pH of 7.32. White count 9.9. Hemoglobin 11.3. Platelets 233. Sodium 143. Potassium 4.5. Bicarb 26. BUN 17. Creatinine 0.87. Glucose 151. The patient has been having concerns of rectal pain and possible rectal mass and the plan was for colonoscopy. However the patient was having ongoing issues with difficulty in swallowing and was being considered for PEG tube placement. This was prior to his change in clinical status. X-ray did reveal a right lower lobe infiltrate with minimal right pleural effusion. Patient was evaluated today on 09/20/2023, patient developed a worsening pulmonary status yesterday, required transfer to the ICU intubation mechanical ventilation. I saw the patient yesterday, he underwent bronchoscopy, lines were placed and the patient, and he was kept on mechanical ventilation overnight. Patient is now on assist-control rate of 24 tidal volume 450 FiO2 was 80% earlier but is now 50%, and PEEP of 10 ABG showed a pO2 of 92 pCO2 47 pH of 7.30 his urine output is 5 to 20 cc/h, however his CVP is low and the patient will require more fluid boluses if no improvement after fluid boluses, then we will give the patient Lasix. In the meantime the patient is requiring propofol at 35 mg/kg/min norepinephrine at 0.06 mg/kg/min IV fluid running at 100 cc/h and the patient is also receiving vital HP at 10 cc/h antibiotics rosario he is receiving Flagyl and Zosyn. Chest x-ray continues to show bilateral infiltrates consistent with most likely aspiration pneumonia. Patient was seen by infectious disease and he is now on Flagyl and ZosynWBC count today is 13 hemoglobin 9.3 basic metabolic profile is normal renal profile showed a BUN of 29 creatinine 1.45 Patient was evaluated today on 09/21/2023, remains in the ICU, intubated and mechanically ventilated. Patient is on assist-control rate of 24 tidal volume 450 FiO2 50% and PEEP of 10 ABG showed a pO2 of 79 pCO2 43 pH of 7.26, apparently the patient developed some metabolic acidosis associated with acute kidney injury, and I have recommended 1 amp of bicarb to be given and sodium bicarb to be given orally and I also recommended nephrology evaluation on this patient as his renal status seems to be getting worse and the patient is having less and less urine output. CVP is around 7 patient will receive more fluids today, may consider Lasix depending on the response to fluid boluses. Urine output is extremely low. And again his renal functioning is getting worse. Patient remains on propofol at 50 mcg/kg/min he is also on norepinephrine at 0.03 mcg/kg/min, patient is receiving Glucerna 1.5/enteral feeding, patient remains on Lovenox 80 mg SQ twice daily, he is also on Zosyn and Flagyl. Chest x-ray continues to show bilateral infiltrates. Improved compared to his initial chest x-ray but nonetheless considered to be significant airspace disease bilaterally. Microbiology from the bronchial washing/lavage, showed mostly C andida, Gram stains and cultures from previous sputum from 09/08/2023 showed E. coli Staph aureus and Streptococcus agalactiae Patient was evaluated today on 09/22/2023, remains in the ICU, intubated and mechanically ventilated. He is on propofol 25 mcg/kg/min, Levophed 0.09 mcg/kg/min, and .9 NS IVF at 10cc/h patient is on assist-control rate of 24 tidal volume 450 FiO2 50% and PEEP of 10. ABG shows pH 7.24 pCO2 42 and pO2 of 97. Patient exhibits normal anion gap metabolic acidosis. Sodium 145, potassium 4.4, chloride 119, CO2 16, BUN 46, creatinine 2.98, glucose 178, and albumin 1.7. He received Sodium bicarb orally, 1amp IVP bicarb, and 80 mg Lasix as per nephrology's recommendation due to patient's poor urine output despite fluids and Lasix. Renal ultrasound showed no hydronephrosis and a left renal cyst. X-ray shows worsening bibasilar infiltrates. Bronchial washings showed Lisa albicans. He is on Zosyn 25ml/hr. Patient was evaluated today on 09/23/2023, remains in ICU, intubated and mechanically ventilated. He is on propofol 50 mcg/kg/min, Levophed 0.06 mcg/kg/min, and 0.9 normal saline IV fluids at 10 cc/h. Patient is on assist- control rate of 24 tidal volume 450 FiO2 50% and PEEP of 10. ABG shows pH of 7.32 pCO2 of 44 and pO2 of 70. Sodium is 143, potassium 4.2, chloride 113, CO2 21, BUN 42, creatinine 3.07, glucose 164, cortisol 11.7 and TSH was 0.618. U rine output remains poor despite fluid restriction and Lasix. Nephrology has discontinued the Lasix drip of 10 mcg/h and placed the patient on 80 mg IVP twice daily. Patient was dialyzed 1L yesterday and is currently undergoing dialysis with a goal of 2.5 L and tolerating well. Patient has FMS in place. He is receiving Glucerna tube feeds at a rate of 35/h. Chest x-ray today remains unchanged shows bibasilar infiltrates with a small right pleural effusion. Patient was evaluated today on 09/24/2023, remains in ICU, intubated and mechanically ventilated. Overnight he was on propofol at a rate of 40 mcg/kg/min, Levophed 0.03 mcg/kg/min, and 0.9 normal saline at 10/h. Patient is on assist-control rate of 24, tidal volume 450, FiO2 50%, PEEP of 10. ABG shows pO2 of 78, CO2 43, pH 7.35. Sodium is 139, potassium 4.4, chloride 108, CO2 21, BUN 40, creatinine 3.11, glucose 194. Blood glucose levels have been ranging in the 200s over the last 24 hours. Urine output remains poor despite fluid restriction and Lasix 80 mg twice daily. Patient was dialyzed 2.9 L yesterday and is undergoing dialysis today with a goal of 3 L. Daily interruption of sedation was unsuccessful yesterday: Patient became asynchronous with the vent, was not arousable, and did not follow commands so SBT was not attempted. Patient has FMS in place. He is receiving Glucerna feeds at a rate of 35/hour. Chest x-ray shows bibasilar infiltrates with slight improvement. Patient has had mild low-grade fevers with a Tmax of 101.3. White count has increased to 13.4 from 9.1 yesterday. Blood culture from 09/19 shows no growth after 72 hours. Procalcitonin yesterday was 5.47. He remains on Zosyn. This morning propofol and Levophed were held for daily interruption of sedation and possible SBT today. Objective - Vital Signs Vital signs: Vital Signs Temp 99.9 F H 09/24/23 04:00 Pulse 85 09/24/23 10:45 Resp 24 09/24/23 10:45 BP 138/65 09/23/23 19:45 Pulse Ox 86 L 09/24/23 10:45 FiO2 50 09/24/23 10:45 Intake & Output 09/23/23 09/24/23 09/24/23 18:59 06:59 18:59 Intake Total 7874.206 9458.439 304.132 Output Total 3022 60 20 Balance -6420.690 4052.439 284.132 Intake: IV 243 156 52 0.9 sodium chloride 110 120 40 Piperacillin-Tazobactam 3 100 .375 gm In Sodium Chloride 0.9% 100 ml @ 25 mls/hr IVPB Q8HR [facility] Rx# :[id number] Pressure Bag 33 36 12 Intake, IV Titration 767.656 621.439 117.132 Amount Furosemide 100 mg In 112 Sodium Chloride 0.9% 90 ml @ 10 MG/HR 10 mls/hr IV .Q10H [facility] Rx#: [id number] Norepinephrine 4 mg In 356.775 443.999 6.393 Sodium Chloride 0.9% 250 ml @ 0.03 MCG/KG/MIN 11. 064 mls/hr IV .[id number] [facility] Rx#:[id number] propofoL 1,000 mg In 298.881 177.440 110.739 Empty Bag 1 bag @ 15 MCG/ KG/MIN 8.712 mls/hr IV . [id number] [facility] Rx#:[id number] Tube Feeding 385 420 105 Hemodialysis 400 Other 90 90 30 Output: Urine 122 60 20 Hemodialysis 2900 Other: Voiding Method Indwelling Catheter Indwelling Catheter Indwelling Catheter # Bowel Movements 50 0 ABP, PAP, CO, CI - Last Documented Arterial Blood Pressure 107/45 - Exam GENERAL EXAM: 67-year-old white male intubated, mechanically ventilated, sedated, not in distress, generally edematous in all 4 extremities Endotracheal tube and orogastric tube are intact. HEAD: Normocephalic and atraumatic EYES: Within normal NOSE: Clear with pink turbinates. THROAT: No erythema or exudates. Dry mucous membranes. NECK: No masses, no JVD. L Subclavian central line is noted. CHEST: No chest wall deformity. LUNGS: Good breath sound bilaterally mostly diminished at the bases no crackles rhonchi or wheezes CVS: S1 and S2 normal with no soft systolic murmur, regular rhythm. No extra heart sounds ABDOMEN: Abdomen flat, diminished bowel sounds, no hepatosplenomegaly, no guarding or rigidity. SKIN: No rashes CENTRAL NERVOUS SYSTEM: Could not assess patient is sedated intubated mechanically ventilated Theatric: Could not assess EXTREMITIES: no clubbing, no cyanosis, trace bipedal edema. - Additional findings Additional findings: Lines: Left radial ART place 712 Left subclavian TLC placed 712 Right forearm AccuCath placed 7-9 Right femoral dialysis cath placed 715 Right wrist IV placed 712 - Labs CBC & Chem 7: 09/24/23 04:40 09/24/23 04:40 Labs: Abnormal Lab Results - Last 24 Hours (Table) 09/23/23 09/23/23 09/23/23 Range/Units 04:55 11:54 17:59 WBC (3.8-10.6) k/uL RBC (4.30-5.90) m/uL Hgb (13.0-17.5) gm/dL Hct (39.0-53.0) % MCHC (31.0-37.0) g/dL Neutrophils # (1.3-7.7) k/uL Lymphocytes # (1.0-4.8) k/uL Monocytes # (0-1.0) k/uL ABG pO2 (83-108) mmHg ABG Total CO2 (19-24) mmol/L Chloride (98-107) mmol/L Carbon Dioxide (22-30) mmol/L BUN (9-20) mg/dL Creatinine (0.66-1.25) mg/dL Glucose (74-99) mg/dL POC Glucose (mg/dL) 133 H 154 H (70-110) mg/dL Calcium (8.4-10.2) mg/dL Procalcitonin 5.47 H (0.02-0.09) ng/mL 09/23/23 09/23/23 09/23/23 Range/Units 20:43 23:29 23:38 WBC (3.8-10.6) k/uL RBC (4.30-5.90) m/uL Hgb (13.0-17.5) gm/dL Hct (39.0-53.0) % MCHC (31.0-37.0) g/dL Neutrophils # (1.3-7.7) k/uL Lymphocytes # (1.0-4.8) k/uL Monocytes # (0-1.0) k/uL ABG pO2 (83-108) mmHg ABG Total CO2 (19-24) mmol/L Chloride (98-107) mmol/L Carbon Dioxide (22-30) mmol/L BUN (9-20) mg/dL Creatinine (0.66-1.25) mg/dL Glucose (74-99) mg/dL POC Glucose (mg/dL) 190 H 221 H 207 H (70-110) mg/dL Calcium (8.4-10.2) mg/dL Procalcitonin (0.02-0.09) ng/mL 09/24/23 09/24/23 09/24/23 Range/Units 04:40 04:40 05:48 WBC 13.4 H (3.8-10.6) k/uL RBC 2.78 L (4.30-5.90) m/uL Hgb 8.3 L (13.0-17.5) gm/dL Hct 27.0 L (39.0-53.0) % MCHC 30.7 L (31.0-37.0) g/dL Neutrophils # 11.0 H (1.3-7.7) k/uL Lymphocytes # 0.9 L (1.0-4.8) k/uL Monocytes # 1.3 H (0-1.0) k/uL ABG pO2 (83-108) mmHg ABG Total CO2 (19-24) mmol/L Chloride 108 H (98-107) mmol/L Carbon Dioxide 21 L (22-30) mmol/L BUN 40 H (9-20) mg/dL Creatinine 3.11 H (0.66-1.25) mg/dL Glucose 194 H (74-99) mg/dL POC Glucose (mg/dL) 212 H (70-110) mg/dL Calcium 7.5 L (8.4-10.2) mg/dL Procalcitonin (0.02-0.09) ng/mL / Range/Units 06:03 WBC (3.8-10.6) k/uL RBC (4.30-5.90) m/uL Hgb (13.0-17.5) gm/dL Hct (39.0-53.0) % MCHC (31.0-37.0) g/dL Neutrophils # (1.3-7.7) k/uL Lymphocytes # (1.0-4.8) k/uL Monocytes # (0-1.0) k/uL ABG pO2 70 L (83-108) mmHg ABG Total CO2 25 H (19-24) mmol/L Chloride (98-107) mmol/L Carbon Dioxide (22-30) mmol/L BUN (9-20) mg/dL Creatinine (0.66-1.25) mg/dL Glucose (74-99) mg/dL POC Glucose (mg/dL) (70-110) mg/dL Calcium (8.4-10.2) mg/dL Procalcitonin (0.02-0.09) ng/mL Microbiology - Last 24 Hours (Table) 09/20/23 14:55 Blood Culture - Preliminary Blood Assessment and Plan Assessment: Acute hypoxic respiratory failure secondary to aspiration pneumonia s/p reintubation on 09/19/23 Aspiration PNA Left lower lobe sputum culture(E.coli, MSSA, Group B Strep) Hypotension due to suspected septic shock from pneumonia Acute kidney injury Malnutrition with severe hypoalbuminemia Anasarca secondary to hypoalbuminemia Normal anion gap metabolic acidosis Acute DKA resolved Hx of Type 2 DM Hx of B/L great toe amputations HX of Hyperlipidemia Hx of CAD with previous stent Hx of seizure disorder Plan Continue ventilator support Continue IVF at 10/hr & 80mg IVP BID as per nephro's recommendations Continue hemodynamic support with levophed Hemodialysis today with goal of 3L Repeated sputum & blood cultures done DIS-SBT to be done again today as tolerated Continue GI and DVT prophylaxis Continue enteral feeding/nutritional at goal of 35/hr Increase Levemir insulin to 20 units for better glucose control Continue sliding scale NovoLog insuline as per protocol Discussion with family about Trach & PEG Patient is critically ill, prognosis is guarded Patient is critically ill and critical care time is over 30 Will continue to follow
--- NOTE | 2023-09-24 11:53 | P.PN ---
Subjective Progress Note Date: 09/24/23 Principal diagnosis: Reason for follow-up is fever Patient is a 67-year-old male with a past medical history significant for coronary disease diabetes mellitus CT seizure disorder history of diabetic foot infection status post bilateral big toe amputation presenting to the hospital with unresponsiveness patient was initially hypothermic subsequently started spiking fever initial workup with a chest x-ray and urine was negative. On today's evaluation that is 09/24/2023, the patient did spike a fever of 101.3 F Last night and did have a low-grade fever of 99.9 this morning patient remains to be intubated on the vent FiO2 is currently at 50% patient currently undergoing dialysis and seem to be tolerating it with the dialysis equipment technician has also developed diarrhea with the fecal management system placed. Patient did have white count of 13.4 creatinine 3.11 Objective - Vital Signs Vital signs: Vital Signs Temp 99.9 F H 09/24/23 04:00 Pulse 85 09/24/23 10:45 Resp 24 09/24/23 10:45 BP 138/65 09/23/23 19:45 Pulse Ox 86 L 09/24/23 10:45 FiO2 50 09/24/23 10:45 Intake & Output 09/23/23 09/24/23 09/24/23 18:59 06:59 18:59 Intake Total 7654.213 3516.439 304.132 Output Total 3022 60 20 Balance -4634.973 7559.439 284.132 Weight 96.8 kg Intake: IV 243 156 52 0.9 sodium chloride 110 120 40 Piperacillin-Tazobactam 3 100 .375 gm In Sodium Chloride 0.9% 100 ml @ 25 mls/hr IVPB Q8HR [facility] Rx# :[id number] Pressure Bag 33 36 12 Intake, IV Titration 767.656 621.439 117.132 Amount Furosemide 100 mg In 112 Sodium Chloride 0.9% 90 ml @ 10 MG/HR 10 mls/hr IV .Q10H [facility] Rx#: [id number] Norepinephrine 4 mg In 356.775 443.999 6.393 Sodium Chloride 0.9% 250 ml @ 0.03 MCG/KG/MIN 11. 064 mls/hr IV .[id number] [facility] Rx#:[id number] propofoL 1,000 mg In 298.881 177.440 110.739 Empty Bag 1 bag @ 15 MCG/ KG/MIN 8.712 mls/hr IV . [id number] [facility] Rx#:[id number] Tube Feeding 385 420 105 Hemodialysis 400 Other 90 90 30 Output: Urine 122 60 20 Hemodialysis 2900 Other: Voiding Method Indwelling Catheter Indwelling Catheter Indwelling Catheter # Bowel Movements 50 0 ABP, PAP, CO, CI - Last Documented Arterial Blood Pressure 107/45 - Exam GENERAL DESCRIPTION: An elderly male intubated on the vent RESPIRATORY SYSTEM: Unlabored breathing , decreased breath sounds at bases HEART: S1 S2 regular rate and rhythm , ABDOMEN: Soft , no tenderness EXTREMITIES: No edema feet - Labs CBC & Chem 7: 09/24/23 04:40 09/24/23 04:40 Labs: Abnormal Lab Results - Last 24 Hours (Table) 09/23/23 09/23/23 09/23/23 Range/Units 04:55 11:54 17:59 WBC (3.8-10.6) k/uL RBC (4.30-5.90) m/uL Hgb (13.0-17.5) gm/dL Hct (39.0-53.0) % MCHC (31.0-37.0) g/dL Neutrophils # (1.3-7.7) k/uL Lymphocytes # (1.0-4.8) k/uL Monocytes # (0-1.0) k/uL ABG pO2 (83-108) mmHg ABG Total CO2 (19-24) mmol/L Chloride (98-107) mmol/L Carbon Dioxide (22-30) mmol/L BUN (9-20) mg/dL Creatinine (0.66-1.25) mg/dL Glucose (74-99) mg/dL POC Glucose (mg/dL) 133 H 154 H (70-110) mg/dL Calcium (8.4-10.2) mg/dL Procalcitonin 5.47 H (0.02-0.09) ng/mL 09/23/23 09/23/23 09/23/23 Range/Units 20:43 23:29 23:38 WBC (3.8-10.6) k/uL RBC (4.30-5.90) m/uL Hgb (13.0-17.5) gm/dL Hct (39.0-53.0) % MCHC (31.0-37.0) g/dL Neutrophils # (1.3-7.7) k/uL Lymphocytes # (1.0-4.8) k/uL Monocytes # (0-1.0) k/uL ABG pO2 (83-108) mmHg ABG Total CO2 (19-24) mmol/L Chloride (98-107) mmol/L Carbon Dioxide (22-30) mmol/L BUN (9-20) mg/dL Creatinine (0.66-1.25) mg/dL Glucose (74-99) mg/dL POC Glucose (mg/dL) 190 H 221 H 207 H (70-110) mg/dL Calcium (8.4-10.2) mg/dL Procalcitonin (0.02-0.09) ng/mL 09/24/23 09/24/23 09/24/23 Range/Units 04:40 04:40 05:48 WBC 13.4 H (3.8-10.6) k/uL RBC 2.78 L (4.30-5.90) m/uL Hgb 8.3 L (13.0-17.5) gm/dL Hct 27.0 L (39.0-53.0) % MCHC 30.7 L (31.0-37.0) g/dL Neutrophils # 11.0 H (1.3-7.7) k/uL Lymphocytes # 0.9 L (1.0-4.8) k/uL Monocytes # 1.3 H (0-1.0) k/uL ABG pO2 (83-108) mmHg ABG Total CO2 (19-24) mmol/L Chloride 108 H (98-107) mmol/L Carbon Dioxide 21 L (22-30) mmol/L BUN 40 H (9-20) mg/dL Creatinine 3.11 H (0.66-1.25) mg/dL Glucose 194 H (74-99) mg/dL POC Glucose (mg/dL) 212 H (70-110) mg/dL Calcium 7.5 L (8.4-10.2) mg/dL Procalcitonin (0.02-0.09) ng/mL 09/24/23 09/24/23 Range/Units 06:03 11:23 WBC (3.8-10.6) k/uL RBC (4.30-5.90) m/uL Hgb (13.0-17.5) gm/dL Hct (39.0-53.0) % MCHC (31.0-37.0) g/dL Neutrophils # (1.3-7.7) k/uL Lymphocytes # (1.0-4.8) k/uL Monocytes # (0-1.0) k/uL ABG pO2 70 L (83-108) mmHg ABG Total CO2 25 H (19-24) mmol/L Chloride (98-107) mmol/L Carbon Dioxide (22-30) mmol/L BUN (9-20) mg/dL Creatinine (0.66-1.25) mg/dL Glucose (74-99) mg/dL POC Glucose (mg/dL) 152 H (70-110) mg/dL Calcium (8.4-10.2) mg/dL Procalcitonin (0.02-0.09) ng/mL Microbiology - Last 24 Hours (Table) 09/20/23 14:55 Blood Culture - Preliminary Blood Assessment and Plan (1) Fever Current Visit: Yes Status: Acute Code(s): R50.9 - FEVER, UNSPECIFIED SNOMED Code(s): 084836890 (2) Pneumonia Current Visit: Yes Status: Acute Code(s): J18.9 - PNEUMONIA, UNSPECIFIED ORGANISM SNOMED Code(s): 537189639 (3) Diarrhea Current Visit: Yes Status: Acute Code(s): R19.7 - DIARRHEA, UNSPECIFIED SNOMED Code(s): 64560530 Plan: 1patient with an episode of less responsiveness and concern for possible aspiration but the patient has been transferred back to the ICU patient is status post bronchoscopy and cultures are currently growing Lisa albicans 2patient did have a new fever we will obtain blood culture check a urine culture we will also check a stool for C. difficile given diarrhea and treat if positive 3-for now continue with the Zosyn adjust antibiotic further on the basis of culture and clinical response Dictation was produced using [employer] dictation software. please excuse any grammatical, word or spelling errors.
[2023-09-24 13:03] LABS: Appearance,Urine Turbid (Clear); Bacteria,Urine Occasional /hpf; Bilirubin,Urine Negative (Negative); Blood,Urine Moderate (Negative); Budding Yeast,Urine Many /hpf; Color,Urine Light Yellow; Glucose,Urine (UA) Negative (Negative); Ketones,Urine Negative (Negative); Leukocyte Esterase,Urine Large (Negative); Nitrite,Urine Negative (Negative); Protein,Urine 2+ (Negative); RBC,Urine >182 /hpf (0-5); Specific Gravity,Urine 1.017 (1.001-1.035); Squamous Epithelial Cell,Urine 2 /hpf (0-4); Urobilinogen,Urine <2.0 mg/dL (<2.0); WBC,Urine >182 /hpf (0-5)
--- NOTE | 2023-09-24 16:43 | P.PN ---
Subjective Progress Note Date: 09/24/23 CHIEF COMPLAINT: rectal pain HISTORY OF PRESENT ILLNESS: 67-year-old male admitted to the hospital for DKA. Surgical service following in regards to rectal wall thickening noted in the rectum/sigmoid colon on CT scan. Patient is currently in the ICU intubated and on mechanical ventilation after aspirating. Patient is receiving hemodialysis again today. He remains on Levophed. Afebrile. WBC up at 13.4 PHYSICAL EXAM: VITAL SIGNS: Reviewed GENERAL: no acute distress. Intubated HEENT: No sclera icterus. Moist buccal mucosa. NECK: Supple without lymphadenopathy. CHEST: Non-labored respirations and equal bilateral excursions. CARDIOVASCULAR: Palpable 2+ radial pulses. ABDOMEN: Soft. Nondistended. MUSCULOSKELETAL: No clubbing or cyanosis. NEUROLOGIC: Intubated and sedated SKIN: Well perfused. Good skin turgor. ASSESSMENT: 1. Acute hypoxia and respiratory failure due to aspiration 2. Inadequate protein malnutrition 3. Severe hypoalbuminemia 4. Anemia 5. Wall thickening of the rectum and sigmoid colon noted on CT PLAN: -No plans for peg tube or endoscopies at this time -Continue ICU management -Continue supportive care Physician Compositor Apprentice note has been reviewed by physician. Signing provider agrees with the documented findings, assessment, and plan of care. Please see additional documentation below CHIEF COMPLAINT: Rectal mass inadequate oral intake HISTORY OF PRESENT ILLNESS: The patient is a 67-year-old male who was transferred to intensive care unit after aspiration pneumonia. He has moderate clinical decline including requiring dialysis. Patient is on pressors. Per discussion with nurse, CODE STATUS discussion is still being sought with his son. ROS: No fevers or chills. On full ventilatory support. PHYSICAL EXAM: VITAL SIGNS: Reviewed CONSTITUTIONAL: Well developed and in no acute distress. EYES: Conjuctivae without sclera icterus. Extraocular movements grossly intact. HEAD, EARS, NOSE, THROAT: Moist buccal mucosa. Head is atraumatic, normocephalic. Hears conversational speech. No nasal drainage. RESPIRATORY: Non-labored respirations and equal bilateral excursions. On full ventilatory support. CARDIOVASCULAR: Palpable 2+ radial pulses. ABDOMEN: No peritonitis. Has fecal management system. MUSCULOSKELETAL: No gross deformity of the lower extremities noted. No clubbing. No cyanosis. SKIN: Good skin turgor. Well perfused. NEUROLOGIC: Cranial nerves II through XII grossly intact. No focal or lateralizing signs. PSYCH: Appropriate affect. Alert and oriented to person, place and time. CLINICAL LABS: Reviewed. WBC elevated 9.1-13.4. ASSESSMENT: 1. Acute hypoxia and respiratory failure due to aspiration 2. Inadequate protein malnutrition 3. Severe hypoalbuminemia 4. Anemia 5. Acute kidney failure, dialysis dependent PLAN: 1. Overall prognosis is poor. Agree with assessment for CODE STATUS change pending family's decision. 2. At this time, no acute surgical invention or endoscopic procedures advised Objective - Vital Signs Vital signs: Vital Signs Temp 98.2 F 09/24/23 16:07 Pulse 77 09/24/23 16:30 Resp 25 H 09/24/23 16:30 BP 138/45 09/24/23 16:07 Pulse Ox 94 L 09/24/23 16:30 FiO2 50 09/24/23 16:30 Intake & Output 09/23/23 09/24/23 09/24/23 18:59 06:59 18:59 Intake Total 8256.945 0321.439 1395.996 Output Total 3022 60 3100 Balance -4299.290 4924.439 -1704.004 Weight 96.8 kg Intake: IV 243 156 240 0.9 sodium chloride 110 120 100 Invasive Line 7 10 Piperacillin-Tazobactam 3 100 100 .375 gm In Sodium Chloride 0.9% 100 ml @ 25 mls/hr IVPB Q8HR [facility] Rx# :[id number] Pressure Bag 33 36 30 Intake, IV Titration 767.656 621.439 280.996 Amount Furosemide 100 mg In 112 Sodium Chloride 0.9% 90 ml @ 10 MG/HR 10 mls/hr IV .Q10H [facility] Rx#: [id number] Norepinephrine 4 mg In 356.775 443.999 81.873 Sodium Chloride 0.9% 250 ml @ 0.03 MCG/KG/MIN 11. 064 mls/hr IV .[id number] [facility] Rx#:[id number] propofoL 1,000 mg In 298.881 177.440 199.123 Empty Bag 1 bag @ 15 MCG/ KG/MIN 8.712 mls/hr IV . [id number] [facility] Rx#:[id number] Tube Feeding 385 420 315 Hemodialysis 400 500 Other 90 90 60 Output: Urine 122 60 50 Stool 50 Hemodialysis 2900 3000 Other: Voiding Method Indwelling Catheter Indwelling Catheter Indwelling Catheter # Bowel Movements 50 150 ABP, PAP, CO, CI - Last Documented Arterial Blood Pressure 138/45 - Labs CBC & Chem 7: 09/24/23 04:40 09/24/23 04:40 Labs: Abnormal Lab Results - Last 24 Hours (Table) 09/23/23 09/23/23 09/23/23 Range/Units 04:55 17:59 20:43 WBC (3.8-10.6) k/uL RBC (4.30-5.90) m/uL Hgb (13.0-17.5) gm/dL Hct (39.0-53.0) % MCHC (31.0-37.0) g/dL Neutrophils # (1.3-7.7) k/uL Lymphocytes # (1.0-4.8) k/uL Monocytes # (0-1.0) k/uL ABG pO2 (83-108) mmHg ABG Total CO2 (19-24) mmol/L Chloride (98-107) mmol/L Carbon Dioxide (22-30) mmol/L BUN (9-20) mg/dL Creatinine (0.66-1.25) mg/dL Glucose (74-99) mg/dL POC Glucose (mg/dL) 154 H 190 H (70-110) mg/dL Calcium (8.4-10.2) mg/dL Procalcitonin 5.47 H (0.02-0.09) ng/mL Urine Protein (Negative) Urine Blood (Negative) Ur Leukocyte Esterase (Negative) Urine RBC (0-5) /hpf Urine WBC (0-5) /hpf Urine WBC Clumps (None) /hpf Urine Bacteria (None) /hpf Urine Yeast (Budding) (None) /hpf 09/23/23 09/23/23 09/24/23 Range/Units 23:29 23:38 04:40 WBC 13.4 H (3.8-10.6) k/uL RBC 2.78 L (4.30-5.90) m/uL Hgb 8.3 L (13.0-17.5) gm/dL Hct 27.0 L (39.0-53.0) % MCHC 30.7 L (31.0-37.0) g/dL Neutrophils # 11.0 H (1.3-7.7) k/uL Lymphocytes # 0.9 L (1.0-4.8) k/uL Monocytes # 1.3 H (0-1.0) k/uL ABG pO2 (83-108) mmHg ABG Total CO2 (19-24) mmol/L Chloride (98-107) mmol/L Carbon Dioxide (22-30) mmol/L BUN (9-20) mg/dL Creatinine (0.66-1.25) mg/dL Glucose (74-99) mg/dL POC Glucose (mg/dL) 221 H 207 H (70-110) mg/dL Calcium (8.4-10.2) mg/dL Procalcitonin (0.02-0.09) ng/mL Urine Protein (Negative) Urine Blood (Negative) Ur Leukocyte Esterase (Negative) Urine RBC (0-5) /hpf Urine WBC (0-5) /hpf Urine WBC Clumps (None) /hpf Urine Bacteria (None) /hpf Urine Yeast (Budding) (None) /hpf 09/24/23 09/24/23 09/24/23 Range/Units 04:40 05:48 06:03 WBC (3.8-10.6) k/uL RBC (4.30-5.90) m/uL Hgb (13.0-17.5) gm/dL Hct (39.0-53.0) % MCHC (31.0-37.0) g/dL Neutrophils # (1.3-7.7) k/uL Lymphocytes # (1.0-4.8) k/uL Monocytes # (0-1.0) k/uL ABG pO2 70 L (83-108) mmHg ABG Total CO2 25 H (19-24) mmol/L Chloride 108 H (98-107) mmol/L Carbon Dioxide 21 L (22-30) mmol/L BUN 40 H (9-20) mg/dL Creatinine 3.11 H (0.66-1.25) mg/dL Glucose 194 H (74-99) mg/dL POC Glucose (mg/dL) 212 H (70-110) mg/dL Calcium 7.5 L (8.4-10.2) mg/dL Procalcitonin (0.02-0.09) ng/mL Urine Protein (Negative) Urine Blood (Negative) Ur Leukocyte Esterase (Negative) Urine RBC (0-5) /hpf Urine WBC (0-5) /hpf Urine WBC Clumps (None) /hpf Urine Bacteria (None) /hpf Urine Yeast (Budding) (None) /hpf 09/24/23 09/24/23 Range/Units 11:23 12:32 WBC (3.8-10.6) k/uL RBC (4.30-5.90) m/uL Hgb (13.0-17.5) gm/dL Hct (39.0-53.0) % MCHC (31.0-37.0) g/dL Neutrophils # (1.3-7.7) k/uL Lymphocytes # (1.0-4.8) k/uL Monocytes # (0-1.0) k/uL ABG pO2 (83-108) mmHg ABG Total CO2 (19-24) mmol/L Chloride (98-107) mmol/L Carbon Dioxide (22-30) mmol/L BUN (9-20) mg/dL Creatinine (0.66-1.25) mg/dL Glucose (74-99) mg/dL POC Glucose (mg/dL) 152 H (70-110) mg/dL Calcium (8.4-10.2) mg/dL Procalcitonin (0.02-0.09) ng/mL Urine Protein 2+ H (Negative) Urine Blood Moderate H (Negative) Ur Leukocyte Esterase Large H (Negative) Urine RBC >182 H (0-5) /hpf Urine WBC >182 H (0-5) /hpf Urine WBC Clumps Many H (None) /hpf Urine Bacteria Occasional H (None) /hpf Urine Yeast (Budding) Many H (None) /hpf Microbiology - Last 24 Hours (Table) 09/20/23 14:55 Blood Culture - Preliminary Blood
[2023-09-24 16:45] LABS: Glucose,Whole Blood 211 mg/dL (70-110)
[2023-09-24] MEDS: INSULIN DETEMIR (LEVEMIR) 100 UNIT/ML SYR SQ SCH (19:52)
[2023-09-24 23:01] LABS: Glucose,Whole Blood 179 mg/dL (70-110)
[2023-09-25 04:57] LABS: Basophils % (A) 0 %; Eosinophils # (A) 0.1 k/uL (0-0.7); Eosinophils % (A) 1 %; HCT 24.1 % (39.0-53.0); HGB 7.9 gm/dL (13.0-17.5); Hypochromasia Slight; Lymphocytes # (A) 0.8 k/uL (1.0-4.8); Lymphocytes % (A) 7 %; MCH 30.6 pg (25.0-35.0); MCHC 32.7 g/dL (31.0-37.0); MCV 93.7 fL (80.0-100.0); Mean Platelet Volume 10.5; Monocytes # (A) 0.8 k/uL (0-1.0); Monocytes % (A) 7 %; Neutrophils % (A) 83 %; Platelet Count 210 k/uL (150-450); RBC 2.58 m/uL (4.30-5.90); RDW 13.9 % (11.5-15.5); WBC 10.8 k/uL (3.8-10.6)
[2023-09-25 05:21] LABS: African American GFR (CKD) 25 (>60 ml/min/1.73 sqM); Anion Gap 6 mmol/L; Blood Urea Nitrogen 37 mg/dL (9-20); Calcium 7.3 mg/dL (8.4-10.2); Carbon Dioxide 25 mmol/L (22-30); Chloride 105 mmol/L (98-107); Glucose 161 mg/dL (74-99); Non-African American GFR(CKD) 21 (>60 ml/min/1.73 sqM); Potassium 3.8 mmol/L (3.5-5.1); Sodium 136 mmol/L (137-145)
[2023-09-25 05:34] LABS: C Reactive Protein 17.8 mg/dL (<1.0)
[2023-09-25 05:50] LABS: ABG Base Excess 2.1 mmol/L; ABG HCO3 27 mmol/L (21-25); ABG Oxygen Saturation 97.3 % (94-97); ABG PCO2 44 mmHg (35-45); ABG PO2 91 mmHg (83-108); ABG TCO2 29 mmol/L (19-24)
[2023-09-25 05:59] LABS: Glucose,Whole Blood 185 mg/dL (70-110)
--- NOTE | 2023-09-25 06:48 | XR ---
EXAMINATION TYPE: XR chest 1V portable DATE OF EXAM: 09/25/2023 COMPARISON: 09/24/2023 INDICATION: Mechanical ventilation difficulty breathing TECHNIQUE: Single frontal view of the chest is obtained. FINDINGS: The heart size is normal. The pulmonary vasculature is normal. Right lower lobe consolidation remains present. Air bronchograms in the left lower lobe consolidation is present. Left central venous catheter tip is in superior vena cava region. Endotracheal tube tip is above the mahesh. Nasogastric tube transverses the thorax tip in the left upper quadrant of the abdomen. IMPRESSION: 1. Worsening bibasilar consolidations. Correlate for pneumonia. Continued follow-up recommended
[2023-09-25] MEDS: HYDROCORTISONE SUCCINATE 100 MG/2 ML VIAL IV STA (09:13)
[2023-09-25] MEDS: ENOXAPARIN 80 MG/0.8 ML SYRINGE SQ SCH (09:31)
[2023-09-25] MEDS: POTASSIUM BICARBONATE/CIT AC 20 MEQ TABLET.EFF NG-TUBE SCH (09:32)
--- NOTE | 2023-09-25 11:21 | P.PN ---
Subjective Patient is seen in follow-up for acute kidney injury. Started on hemodialysis September 22, 2023. Tolerating dialysis well. Oliguric. On Levophed. Receiving tube feeds. Vital signs are stable. General: Resting in bed. HEENT: Intubated. LUNGS: Scattered rhonchi. HEART: Rate and Rhythm are regular. ABDOMEN: No distention. EXTREMITITES: 2+ edema. Scrotal edema noted. Objective - Vital Signs Vital signs: Vital Signs Temp 99.7 F H 09/25/23 08:00 Pulse 78 09/25/23 11:00 Resp 24 09/25/23 11:00 BP 141/65 09/24/23 17:00 Pulse Ox 94 L 09/25/23 11:00 FiO2 50 09/25/23 08:23 Intake & Output 09/24/23 09/25/23 09/25/23 18:59 06:59 18:59 Intake Total 2595.316 9528.801 463.896 Output Total 3115 35 25 Balance -2198.380 8665.801 438.896 Weight 96.8 kg Intake: IV 279 156 52 0.9 sodium chloride 130 120 40 Invasive Line 7 10 Piperacillin-Tazobactam 3 100 .375 gm In Sodium Chloride 0.9% 100 ml @ 25 mls/hr IVPB Q8HR [facility] Rx# :[id number] Pressure Bag 39 36 12 Intake, IV Titration 287.511 456.801 61.896 Amount Norepinephrine 4 mg In 88.388 192.042 61.896 Sodium Chloride 0.9% 250 ml @ 0.03 MCG/KG/MIN 11. 064 mls/hr IV .[id number] [facility] Rx#:[id number] propofoL 1,000 mg In 199.123 264.759 Empty Bag 1 bag @ 15 MCG/ KG/MIN 8.712 mls/hr IV . [id number] [facility] Rx#:[id number] Oral 180 Tube Feeding 420 385 140 Hemodialysis 500 Other 90 90 30 Output: Urine 65 35 25 Stool 50 Hemodialysis 3000 Other: Voiding Method Indwelling Catheter Indwelling Catheter Indwelling Catheter # Bowel Movements 150 ABP, PAP, CO, CI - Last Documented Arterial Blood Pressure 124/43 - Labs CBC & Chem 7: 09/25/23 04:38 09/25/23 04:38 Labs: Abnormal Lab Results - Last 24 Hours (Table) 09/24/23 09/24/23 09/24/23 Range/Units 11:23 12:32 16:43 WBC (3.8-10.6) k/uL RBC (4.30-5.90) m/uL Hgb (13.0-17.5) gm/dL Hct (39.0-53.0) % Neutrophils # (1.3-7.7) k/uL Lymphocytes # (1.0-4.8) k/uL ABG HCO3 (21-25) mmol/L ABG Total CO2 (19-24) mmol/L ABG O2 Saturation (94-97) % Sodium (137-145) mmol/L BUN (9-20) mg/dL Creatinine (0.66-1.25) mg/dL Glucose (74-99) mg/dL POC Glucose (mg/dL) 152 H 211 H (70-110) mg/dL Calcium (8.4-10.2) mg/dL C-Reactive Protein (<1.0) mg/dL Procalcitonin (0.02-0.09) ng/mL Urine Protein 2+ H (Negative) Urine Blood Moderate H (Negative) Ur Leukocyte Esterase Large H (Negative) Urine RBC >182 H (0-5) /hpf Urine WBC >182 H (0-5) /hpf Urine WBC Clumps Many H (None) /hpf Urine Bacteria Occasional H (None) /hpf Urine Yeast (Budding) Many H (None) /hpf 09/24/23 09/25/23 09/25/23 Range/Units 22:59 04:38 04:38 WBC 10.8 H (3.8-10.6) k/uL RBC 2.58 L (4.30-5.90) m/uL Hgb 7.9 L (13.0-17.5) gm/dL Hct 24.1 L (39.0-53.0) % Neutrophils # 9.0 H (1.3-7.7) k/uL Lymphocytes # 0.8 L (1.0-4.8) k/uL ABG HCO3 (21-25) mmol/L ABG Total CO2 (19-24) mmol/L ABG O2 Saturation (94-97) % Sodium (137-145) mmol/L BUN (9-20) mg/dL Creatinine (0.66-1.25) mg/dL Glucose (74-99) mg/dL POC Glucose (mg/dL) 179 H (70-110) mg/dL Calcium (8.4-10.2) mg/dL C-Reactive Protein (<1.0) mg/dL Procalcitonin 6.46 H (0.02-0.09) ng/mL Urine Protein (Negative) Urine Blood (Negative) Ur Leukocyte Esterase (Negative) Urine RBC (0-5) /hpf Urine WBC (0-5) /hpf Urine WBC Clumps (None) /hpf Urine Bacteria (None) /hpf Urine Yeast (Budding) (None) /hpf 09/25/23 09/25/23 09/25/23 Range/Units 04:38 04:44 05:57 WBC (3.8-10.6) k/uL RBC (4.30-5.90) m/uL Hgb (13.0-17.5) gm/dL Hct (39.0-53.0) % Neutrophils # (1.3-7.7) k/uL Lymphocytes # (1.0-4.8) k/uL ABG HCO3 27 H (21-25) mmol/L ABG Total CO2 29 H (19-24) mmol/L ABG O2 Saturation 97.3 H (94-97) % Sodium 136 L (137-145) mmol/L BUN 37 H (9-20) mg/dL Creatinine 2.94 H (0.66-1.25) mg/dL Glucose 161 H (74-99) mg/dL POC Glucose (mg/dL) 185 H (70-110) mg/dL Calcium 7.3 L (8.4-10.2) mg/dL C-Reactive Protein 17.8 H (<1.0) mg/dL Procalcitonin (0.02-0.09) ng/mL Urine Protein (Negative) Urine Blood (Negative) Ur Leukocyte Esterase (Negative) Urine RBC (0-5) /hpf Urine WBC (0-5) /hpf Urine WBC Clumps (None) /hpf Urine Bacteria (None) /hpf Urine Yeast (Budding) (None) /hpf Microbiology - Last 24 Hours (Table) 09/24/23 12:32 Urine Culture - Preliminary Urine,Voided Yeast species 09/24/23 10:00 Gram Stain - Preliminary Sputum Assessment and Plan Plan: Assessment: 1. Acute kidney injury secondary to ATN secondary to hypotension requiring vasopressor support. Baseline creatinine near 1. Oliguric. No hydronephrosis noted on kidney ultrasound. Started on hemodialysis September 21 to 2023 via temporary catheter dialysis catheter. 2. Septic shock secondary to pneumonia on antibiotics. ID following. 3. Metabolic acidosis secondary to acute kidney injury and IV fluids. Improved. 4. Acute hypoxic respiratory failure secondary to pneumonia. Intubated. 5. DKA on presentation status post insulin drip. 6. Hyperphosphatemia secondary to acute kidney injury. Phosphorus level 5.5 dated September 22, 2023. 7. Volume overload. Plan: Currently seen while undergoing hemodialysis. Continue with daily dialysis for now. Challenge ultrafiltration. Maintain IV Lasix 80 mg twice daily. Maintain tube feeds. Continue to monitor renal function and urine output. Wean FiO2 and Levophed.
[2023-09-25 11:27] LABS: Glucose,Whole Blood 148 mg/dL (70-110)
--- NOTE | 2023-09-25 11:38 | P.PN ---
Subjective Progress Note Date: 09/25/23 Principal diagnosis: Progress note dated 09/22/23 67-year-old male with past medical history significant for diabetes mellitus, prior toe amputations, hyperlipidemia, coronary artery disease with previous stents, and seizure disorder who presented to the ED on 09/06 with DKA unresponsive intubated and mechanically ventilated. Patient was admitted to the ICU for DKA, respiratory failure, and MARIANO. He remained in the ICU until 09/12 when he was transferred to the floors. On 09/18 he was scheduled for colonoscopy as well as PEG placement on 09/21. On 09/18 his O2 requirement increased from 2-6L NC. A Team was called and he was reintubated and transferred to the ICU. Patient was evaluated today on 09/18/2023, patient is about the same, continues to have some discomfort in his back and in his rectal area, supposed to have colonoscopy tomorrow. Eliquis remains on hold. Patient has no active pulmonary issues. WBC count is 8.6 hemoglobin 10.2 electrolytes are normal renal profile is normal The patient was seen today September 19, 2023 in follow-up on the [facility]. Today he is found to be weak and obtunded. He is requiring more oxygen currently at 6 L high flow nasal cannula. A rapid response team was called on him. Chest x-ray and ABGs reviewed. He will be transferred to the intensive care unit. Serial blood gases on 100% FiO2 revealed a P O2 of 66, pCO2 of 49 and a pH of 7.32. White count 9.9. Hemoglobin 11.3. Platelets 233. Sodium 143. Potassium 4.5. Bicarb 26. BUN 17. Creatinine 0.87. Glucose 151. The patient has been having concerns of rectal pain and possible rectal mass and the plan was for colonoscopy. However the patient was having ongoing issues with difficulty in swallowing and was being considered for PEG tube placement. This was prior to his change in clinical status. X-ray did reveal a right lower lobe infiltrate with minimal right pleural effusion. Patient was evaluated today on 09/20/2023, patient developed a worsening pulmonary status yesterday, required transfer to the ICU intubation mechanical ventilation. I saw the patient yesterday, he underwent bronchoscopy, lines were placed and the patient, and he was kept on mechanical ventilation overnight. Patient is now on assist-control rate of 24 tidal volume 450 FiO2 was 80% earlier but is now 50%, and PEEP of 10 ABG showed a pO2 of 92 pCO2 47 pH of 7.30 his urine output is 5 to 20 cc/h, however his CVP is low and the patient will require more fluid boluses if no improvement after fluid boluses, then we will give the patient Lasix. In the meantime the patient is requiring propofol at 35 mg/kg/min norepinephrine at 0.06 mg/kg/min IV fluid running at 100 cc/h and the patient is also receiving vital HP at 10 cc/h antibiotics rosario he is receiving Flagyl and Zosyn. Chest x-ray continues to show bilateral infiltrates consistent with most likely aspiration pneumonia. Patient was seen by infectious disease and he is now on Flagyl and ZosynWBC count today is 13 hemoglobin 9.3 basic metabolic profile is normal renal profile showed a BUN of 29 creatinine 1.45 Patient was evaluated today on 09/21/2023, remains in the ICU, intubated and mechanically ventilated. Patient is on assist-control rate of 24 tidal volume 450 FiO2 50% and PEEP of 10 ABG showed a pO2 of 79 pCO2 43 pH of 7.26, apparently the patient developed some metabolic acidosis associated with acute kidney injury, and I have recommended 1 amp of bicarb to be given and sodium bi carb to be given orally and I also recommended nephrology evaluation on this patient as his renal status seems to be getting worse and the patient is having less and less urine output. CVP is around 7 patient will receive more fluids today, may consider Lasix depending on the response to fluid boluses. Urine output is extremely low. And again his renal functioning is getting worse. Patient remains on propofol at 50 mcg/kg/min he is also on norepinephrine at 0.03 mcg/kg/min, patient is receiving Glucerna 1.5/enteral feeding, patient remains on Lovenox 80 mg SQ twice daily, he is also on Zosyn and Flagyl. Chest x-ray continues to show bilateral infiltrates. Improved compared to his initial chest x-ray but nonetheless considered to be significant airspace disease bilaterally. Microbiology from the bronchial washing/lavage, showed mostly Lisa, Gram stains and cultures from previous sputum from 09/08/2023 showed E. coli Staph aureus and Streptococcus agalactiae Patient was evaluated today on 09/22/2023, remains in the ICU, intubated and mechanically ventilated. He is on propofol 25 mcg/kg/min, Levophed 0.09 mcg/kg/min, and .9 NS IVF at 10cc/h patient is on assist-control rate of 24 tidal volume 450 FiO2 50% and PEEP of 10. ABG shows pH 7.24 pCO2 42 and pO2 of 97. Patient exhibits normal anion gap metabolic acidosis. Sodium 145, potassium 4.4, chloride 119, CO2 16, BUN 46, creatinine 2.98, glucose 178, and albumin 1.7. He received Sodium bicarb orally, 1amp IVP bicarb, and 80 mg Lasix as per nephrology's recommendation due to patient's poor urine output despite fluids and Lasix. Renal ultrasound showed no hydronephrosis and a left renal cyst. X-ray shows worsening bibasilar infiltrates. Bronchial washings showed Lisa albicans. He is on Zosyn 25ml/hr. Patient was evaluated today on 09/23/2023, remains in ICU, intubated and mechanically ventilated. He is on propofol 50 mcg/kg/min, Levophed 0.06 mcg/kg/min, and 0.9 normal saline IV fluids at 10 cc/h. Patient is on assist- control rate of 24 tidal volume 450 FiO2 50% and PEEP of 10. ABG shows pH of 7.32 pCO2 of 44 and pO2 of 70. Sodium is 143, potassium 4.2, chloride 113, CO2 21, BUN 42, creatinine 3.07, glucose 164, cortisol 11.7 and TSH was 0.618. Urine output remains poor despite fluid restriction and Lasix. Nephrology has discontinued the Lasix drip of 10 mcg/h and placed the patient on 80 mg IVP twice daily. Patient was dialyzed 1L yesterday and is currently undergoing dialysis with a goal of 2.5 L and tolerating well. Patient has FMS in place. He is receiving Glucerna tube feeds at a rate of 35/h. Chest x-ray today remains unchanged shows bibasilar infiltrates with a small right pleural effusion. Patient was evaluated today on 09/24/2023, remains in ICU, intubated and mechani enmanuel ventilated. Overnight he was on propofol at a rate of 40 mcg/kg/min, Levophed 0.03 mcg/kg/min, and 0.9 normal saline at 10/h. Patient is on assist- control rate of 24, tidal volume 450, FiO2 50%, PEEP of 10. ABG shows pO2 of 78, CO2 43, pH 7.35. Sodium is 139, potassium 4.4, chloride 108, CO2 21, BUN 40, creatinine 3.11, glucose 194. Blood glucose levels have been ranging in the 200s over the last 24 hours. Urine output remains poor despite fluid restriction and Lasix 80 mg twice daily. Patient was dialyzed 2.9 L yesterday and is undergoing dialysis today with a goal of 3 L. Daily interruption of sedation was unsuccessful yesterday: Patient became asynchronous with the vent, was not arousable, and did not follow commands so SBT was not attempted. Patient has FMS in place. He is receiving Glucerna feeds at a rate of 35/hour. Chest x-ray shows bibasilar infiltrates with slight improvement. Patient has had mild low-grade fevers with a Tmax of 101.3. White count has increased to 13.4 from 9.1 yesterday. Blood culture from 09/19 shows no growth after 72 hours. Procalcitonin yesterday was 5.47. He remains on Zosyn. This morning propofol and Levophed were held for daily interruption of sedation and possible SBT today. Patient was evaluated today on 09/25/2023, remains in ICU, intubated and mechanically ventilated. He is on propofol at a rate of 40 mcg/kg/min, Levophed 0.03 mcg/kg/min, and 0.9 normal saline at 10/h. Patient is on assist control rate of 24, tidal volume 450, FiO2 50%, PEEP of 10. ABG shows PaO2 91, CO2 44, pH 7.4. Sodium is 136, potassium 3.8 which has been repleted, chloride 105, CO2 25, BUN 37, creatinine 2.94, glucose 161. Urine output remains poor despite fluid restriction and Lasix 80 mg twice daily. Patient was dialyzed [address] and is undergoing dialysis today. Daily interruption of sedation was unsuccessful yesterday. Patient was not opening his eyes or moving his extremities, unable to follow commands, and asynchronous with the vent, so SBT was not attempted. Patient has FMS in place. He is receiving Glucerna feeds at a rate of 35 an hour. Chest x-ray shows worsening bibasilar consolidations. Patient had low-grade fever of 99.7. White count has decreased from 13.4 yesterday to 10.8 today. Blood culture, urine culture, and sputum culture have all been sent to the lab. Daily interruption of sedation & SBT as tolerated today. Attempts to contact family regarding possible trach and PEG are still ongoing due to patient's multiple unsuccessful attempts to wean off the ventilator. Objective - Vital Signs Vital signs: Vital Signs Temp 99.7 F H 09/25/23 08:00 Pulse 72 09/25/23 10:00 Resp 34 H 09/25/23 10:00 BP 141/65 09/24/23 17:00 Pulse Ox 95 09/25/23 10:00 FiO2 50 09/25/23 08:23 Intake & Output 09/24/23 09/25/23 09/25/23 18:59 06:59 18:59 Intake Total 7563.689 9179.801 415.896 Output Total 3115 35 20 Balance -7781.460 0063.801 395.896 Weight 96.8 kg Intake: IV 279 156 39 0.9 sodium chloride 130 120 30 Invasive Line 7 10 Piperacillin-Tazobactam 3 100 .375 gm In Sodium Chloride 0.9% 100 ml @ 25 mls/hr IVPB Q8HR [facility] Rx# :[id number] Pressure Bag 39 36 9 Intake, IV Titration 287.511 456.801 61.896 Amount Norepinephrine 4 mg In 88.388 192.042 61.896 Sodium Chloride 0.9% 250 ml @ 0.03 MCG/KG/MIN 11. 064 mls/hr IV .[id number] [facility] Rx#:[id number] propofoL 1,000 mg In 199.123 264.759 Empty Bag 1 bag @ 15 MCG/ KG/MIN 8.712 mls/hr IV . [id number] [facility] Rx#:[id number] Oral 180 Tube Feeding 420 385 105 Hemodialysis 500 Other 90 90 30 Output: Urine 65 35 20 Stool 50 Hemodialysis 3000 Other: Voiding Method Indwelling Catheter Indwelling Catheter # Bowel Movements 150 ABP, PAP, CO, CI - Last Documented Arterial Blood Pressure 156/48 - Exam GENERAL EXAM: 67-year-old white male intubated, mechanically ventilated, sedated, not in distress, generally edematous in all 4 extremities Endotracheal tube and orogastric tube are intact. HEAD: Normocephalic and atraumatic EYES: Within normal NOSE: Clear with pink turbinates. THROAT: No erythema or exudates. Dry mucous membranes. NECK: No masses, no JVD. L Subclavian central line is noted. CHEST: No chest wall deformity. LUNGS: Good breath sound bilaterally mostly diminished at the bases no crackles rhonchi or wheezes CVS: S1 and S2 normal with no soft systolic murmur, regular rhythm. No extra heart sounds ABDOMEN: Abdomen flat, diminished bowel sounds, no hepatosplenomegaly, no guarding or rigidity. SKIN: No rashes CENTRAL NERVOUS SYSTEM: Could not assess patient is sedated intubated mechanically ventilated Theatric: Could not assess EXTREMITIES: no clubbing, no cyanosis, trace bipedal edema. - Additional findings Additional findings: Lines: Left radial ART placed 7-12 - Labs CBC & Chem 7: 09/25/23 04:38 09/25/23 04:38 Labs: Abnormal Lab Results - Last 24 Hours (Table) 09/24/23 09/24/23 09/24/23 Range/Units 11:23 12:32 16:43 WBC (3.8-10.6) k/uL RBC (4.30-5.90) m/uL Hgb (13.0-17.5) gm/dL Hct (39.0-53.0) % Neutrophils # (1.3-7.7) k/uL Lymphocytes # (1.0-4.8) k/uL ABG HCO3 (21-25) mmol/L ABG Total CO2 (19-24) mmol/L ABG O2 Saturation (94-97) % Sodium (137-145) mmol/L BUN (9-20) mg/dL Creatinine (0.66-1.25) mg/dL Glucose (74-99) mg/dL POC Glucose (mg/dL) 152 H 211 H (70-110) mg/dL Calcium (8.4-10.2) mg/dL C-Reactive Protein (<1.0) mg/dL Procalcitonin (0.02-0.09) ng/mL Urine Protein 2+ H (Negative) Urine Blood Moderate H (Negative) Ur Leukocyte Esterase Large H (Negative) Urine RBC >182 H (0-5) /hpf Urine WBC >182 H (0-5) /hpf Urine WBC Clumps Many H (None) /hpf Urine Bacteria Occasional H (None) /hpf Urine Yeast (Budding) Many H (None) /hpf 09/24/23 09/25/23 09/25/23 Range/Units 22:59 04:38 04:38 WBC 10.8 H (3.8-10.6) k/uL RBC 2.58 L (4.30-5.90) m/uL Hgb 7.9 L (13.0-17.5) gm/dL Hct 24.1 L (39.0-53.0) % Neutrophils # 9.0 H (1.3-7.7) k/uL Lymphocytes # 0.8 L (1.0-4.8) k/uL ABG HCO3 (21-25) mmol/L ABG Total CO2 (19-24) mmol/L ABG O2 Saturation (94-97) % Sodium (137-145) mmol/L BUN (9-20) mg/dL Creatinine (0.66-1.25) mg/dL Glucose (74-99) mg/dL POC Glucose (mg/dL) 179 H (70-110) mg/dL Calcium (8.4-10.2) mg/dL C-Reactive Protein (<1.0) mg/dL Procalcitonin 6.46 H (0.02-0.09) ng/mL Urine Protein (Negative) Urine Blood (Negative) Ur Leukocyte Esterase (Negative) Urine RBC (0-5) /hpf Urine WBC (0-5) /hpf Urine WBC Clumps (None) /hpf Urine Bacteria (None) /hpf Urine Yeast (Budding) (None) /hpf 09/25/23 09/25/23 09/25/23 Range/Units 04:38 04:44 05:57 WBC (3.8-10.6) k/uL RBC (4.30-5.90) m/uL Hgb (13.0-17.5) gm/dL Hct (39.0-53.0) % Neutrophils # (1.3-7.7) k/uL Lymphocytes # (1.0-4.8) k/uL ABG HCO3 27 H (21-25) mmol/L ABG Total CO2 29 H (19-24) mmol/L ABG O2 Saturation 97.3 H (94-97) % Sodium 136 L (137-145) mmol/L BUN 37 H (9-20) mg/dL Creatinine 2.94 H (0.66-1.25) mg/dL Glucose 161 H (74-99) mg/dL POC Glucose (mg/dL) 185 H (70-110) mg/dL Calcium 7.3 L (8.4-10.2) mg/dL C-Reactive Protein 17.8 H (<1.0) mg/dL Procalcitonin (0.02-0.09) ng/mL Urine Protein (Negative) Urine Blood (Negative) Ur Leukocyte Esterase (Negative) Urine RBC (0-5) /hpf Urine WBC (0-5) /hpf Urine WBC Clumps (None) /hpf Urine Bacteria (None) /hpf Urine Yeast (Budding) (None) /hpf Microbiology - Last 24 Hours (Table) 09/24/23 10:00 Gram Stain - Preliminary Sputum Assessment and Plan Assessment: Acute hypoxic respiratory failure secondary to aspiration pneumonia s/p reintubation on 09/19/23 Aspiration PNA Left lower lobe sputum culture(E.coli, MSSA, Group B Strep) Hypotension due to suspected septic shock from pneumonia Acute kidney injury Malnutrition with severe hypoalbuminemia Anasarca secondary to hypoalbuminemia Possible Relative Adrenal Insufficiency Normal anion gap metabolic acidosis resolved Acute DKA resolved Hx of Type 2 DM Hx of B/L great toe amputations HX of Hyperlipidemia Hx of CAD with previous stent Hx of seizure disorder Plan Continue ventilator support Continue IVF at 10/hr & 80mg IVP BID as per nephro's recommendations Continue hemodynamic support with levophed Hemodialysis today Follow up Sputum culture DIS-SBT to be done again today as tolerated Hydrocortisone 100mg & BP monitoring to r/o possible adrenal insufficiency Continue GI and DVT prophylaxis Continue enteral feeding/nutritional at goal of 35/hr Continue Levemir insulin to 20 units for better glucose control Continue sliding scale NovoLog insulin as per protocol Discussion with family about possible Trach & PEG Patient is critically ill, prognosis is guarded Patient is critically ill and critical care time is over 30 Will continue to follow Time with Patient: Greater than 30
--- NOTE | 2023-09-25 14:32 | P.PN ---
Subjective Progress Note Date: 09/25/23 Principal diagnosis: Reason for follow-up is fever Patient is a 67-year-old male with a past medical history significant for coronary disease diabetes mellitus AR seizure disorder history of diabetic foot infection status post bilateral big toe amputation presenting to the hospital with unresponsiveness patient was initially hypothermic subsequently started spiking fever initial workup with a chest x-ray and urine was negative. On today's evaluation that is 09/25/2023, Patient did have overall improvement in his fever pattern with a temperature of 99.7 F this morning patient remains to be intubated on the vent FiO2 is currently at 50% no significant purulent s ecretions through the ET patient undergoing dialysis and has been tolerating it so far. Patient white count is down to 10.8, creatinine is 2.94, urine is growing yeast Objective - Vital Signs Vital signs: Vital Signs Temp 99 F 09/25/23 13:28 Pulse 84 09/25/23 14:15 Resp 26 H 09/25/23 14:15 BP 148/46 09/25/23 13:28 Pulse Ox 95 09/25/23 14:15 FiO2 50 09/25/23 12:00 Intake & Output 09/24/23 09/25/23 09/25/23 18:59 06:59 18:59 Intake Total 3363.603 8229.801 1170.556 Output Total 3115 35 6430 Balance -8078.116 7693.801 -5259.444 Weight 96.8 kg Intake: IV 279 156 91 0.9 sodium chloride 130 120 70 Invasive Line 7 10 Piperacillin-Tazobactam 3 100 .375 gm In Sodium Chloride 0.9% 100 ml @ 25 mls/hr IVPB Q8HR [facility] Rx# :[id number] Pressure Bag 39 36 21 Intake, IV Titration 287.511 456.801 194.556 Amount Norepinephrine 4 mg In 88.388 192.042 76.218 Sodium Chloride 0.9% 250 ml @ 0.03 MCG/KG/MIN 11. 064 mls/hr IV .[id number] [facility] Rx#:[id number] propofoL 1,000 mg In 199.123 264.759 118.338 Empty Bag 1 bag @ 15 MCG/ KG/MIN 8.712 mls/hr IV . [id number] [facility] Rx#:[id number] Oral 180 Tube Feeding 420 385 245 Hemodialysis 500 400 Other 90 90 60 Output: Urine 65 35 30 Stool 50 Hemodialysis 3000 3400 Hemodialysis Net Amount 3000 Other: Voiding Method Indwelling Catheter Indwelling Catheter Indwelling Catheter # Bowel Movements 150 ABP, PAP, CO, CI - Last Documented Arterial Blood Pressure 157/45 - Exam GENERAL DESCRIPTION: An elderly male intubated on the vent RESPIRATORY SYSTEM: Unlabored breathing , decreased breath sounds at bases HEART: S1 S2 regular rate and rhythm , ABDOMEN: Soft , no tenderness EXTREMITIES: No edema feet - Labs CBC & Chem 7: 09/25/23 04:38 09/25/23 04:38 Labs: Abnormal Lab Results - Last 24 Hours (Table) 09/24/23 09/24/23 09/25/23 Range/Units 16:43 22:59 04:38 WBC (3.8-10.6) k/uL RBC (4.30-5.90) m/uL Hgb (13.0-17.5) gm/dL Hct (39.0-53.0) % Neutrophils # (1.3-7.7) k/uL Lymphocytes # (1.0-4.8) k/uL ABG HCO3 (21-25) mmol/L ABG Total CO2 (19-24) mmol/L ABG O2 Saturation (94-97) % Sodium (137-145) mmol/L BUN (9-20) mg/dL Creatinine (0.66-1.25) mg/dL Glucose (74-99) mg/dL POC Glucose (mg/dL) 211 H 179 H (70-110) mg/dL Calcium (8.4-10.2) mg/dL C-Reactive Protein (<1.0) mg/dL Procalcitonin 6.46 H (0.02-0.09) ng/mL 09/25/23 09/25/23 09/25/23 Range/Units 04:38 04:38 04:44 WBC 10.8 H (3.8-10.6) k/uL RBC 2.58 L (4.30-5.90) m/uL Hgb 7.9 L (13.0-17.5) gm/dL Hct 24.1 L (39.0-53.0) % Neutrophils # 9.0 H (1.3-7.7) k/uL Lymphocytes # 0.8 L (1.0-4.8) k/uL ABG HCO3 27 H (21-25) mmol/L ABG Total CO2 29 H (19-24) mmol/L ABG O2 Saturation 97.3 H (94-97) % Sodium 136 L (137-145) mmol/L BUN 37 H (9-20) mg/dL Creatinine 2.94 H (0.66-1.25) mg/dL Glucose 161 H (74-99) mg/dL POC Glucose (mg/dL) (70-110) mg/dL Calcium 7.3 L (8.4-10.2) mg/dL C-Reactive Protein 17.8 H (<1.0) mg/dL Procalcitonin (0.02-0.09) ng/mL 09/25/23 09/25/23 Range/Units 05:57 11:26 WBC (3.8-10.6) k/uL RBC (4.30-5.90) m/uL Hgb (13.0-17.5) gm/dL Hct (39.0-53.0) % Neutrophils # (1.3-7.7) k/uL Lymphocytes # (1.0-4.8) k/uL ABG HCO3 (21-25) mmol/L ABG Total CO2 (19-24) mmol/L ABG O2 Saturation (94-97) % Sodium (137-145) mmol/L BUN (9-20) mg/dL Creatinine (0.66-1.25) mg/dL Glucose (74-99) mg/dL POC Glucose (mg/dL) 185 H 148 H (70-110) mg/dL Calcium (8.4-10.2) mg/dL C-Reactive Protein (<1.0) mg/dL Procalcitonin (0.02-0.09) ng/mL Microbiology - Last 24 Hours (Table) 09/24/23 10:00 Gram Stain - Preliminary Sputum Sputum Culture - Preliminary Lisa albicans 09/24/23 12:32 Urine Culture - Preliminary Urine,Voided Yeast species Assessment and Plan (1) Fever Current Visit: Yes Status: Acute Code(s): R50.9 - FEVER, UNSPECIFIED SNOMED Code(s): 996806155 (2) Pneumonia Current Visit: Yes Status: Acute Code(s): J18.9 - PNEUMONIA, UNSPECIFIED ORGANISM SNOMED Code(s): 391843539 (3) Diarrhea Current Visit: Yes Status: Acute Code(s): R19.7 - DIARRHEA, UNSPECIFIED SNOMED Code(s): 33411027 Plan: 1patient with an episode of less responsiveness and concern for possible aspiration but the patient has been transferred back to the ICU patient is status post bronchoscopy and cultures are currently growing Lisa albicans 2patient did have a new fever source likely catheter associated UTI with urine growing yeast, the patient is on amiodarone and cannot use Diflucan we will recommend change of his Ochoa catheter that should help mild yeast associated UTI otherwise we will need to add Eraxis Dictation was produced using [employer] software. please excuse any grammatical, word or spelling errors.
--- NOTE | 2023-09-25 15:29 | P.GSCN ---
History of Present Illness Consult date: 09/25/23 History of present illness: CHIEF COMPLAINT: DKA HISTORY OF PRESENT ILLNESS: This is a 67-year-old male who presented to the hospital on September 06 with evidence of DKA. Patient was unresponsive and required to be intubated by EMS. Patient has had a prolonged hospitalization. Patient has been on the cardiac floor and went into respiratory distress concerns for aspiration and also had to be transferred back to the ICU and has currently been intubated and on mechanical ventilation. They are having difficulty weaning patient from the vent. He is requiring Levophed and has been started on hemodialysis. Patient did have a CT scan of the abdomen pelvis that had re ported wall thickening of the rectum and sigmoid colon and fat-containing right inguinal hernias. Patient has not been stable to proceed with any colonoscopy. Dr. Weeks has been consulted for tracheostomy and PEG tube placement. PAST MEDICAL HISTORY: Coronary Artery Disease (CAD), Diabetes Mellitus, Myocardial Infarction (HI), Seizure Disorder, A-fib PAST SURGICAL HISTORY: Heart catheterization with stent MEDICATIONS: See below ALLERGIES: See below SOCIAL HISTORY: No illicit drug use. REVIEW OF SYSTEMS: CONSTITUTIONAL: Denies fever or chills. HEENT: Denies blurred vision, vision changes, or eye pain. Denies hemoptysis CARDIOVASCULAR: Denies chest pain or pressure. RESPIRATORY: No shortness of breath. GASTROINTESTINAL: See HPI for pertinent findings HEMATOLOGIC: Denies bleeding disorders. GENITOURINARY: Denies any blood in urine or increased urinary frequency. SKIN: Denies pruitis. Denies rash. PHYSICAL EXAM: VITAL SIGNS: Reviewed GENERAL: no acute distress. ABDOMEN: Soft. Nondistended. Nontender NEUROLOGIC: Sedated. LABORATORY DATA: WBC 13.4 down to 10.8 Hgb 7.9 platelets 210 Sodium 136 potassium 3.8 creatinine 2.94 Albumin 1.7 IMAGING: ASSESSMENT: 1. Acute hypoxic respiratory failure secondary to aspiration pneumonia patient required to be reintubated on September 19, 2023 and has not been able to wean from vent 2. Severe protein calorie malnutrition 3. Wall thickening of the rectum and sigmoid colon noted on CT PLAN: -Patient scheduled for tracheostomy and PEG tube placement [facility] Physician [employer] note has been reviewed by physician. Signing provider agrees with the documented findings, assessment, and plan of care. Past Medical History Past Medical History: Coronary Artery Disease (CAD), Diabetes Mellitus, Myocardial Infarction (HI), Seizure Disorder Last Myocardial Infarction Date:: unknown History of Any Multi-Drug Resistant Organisms: Unobtainable Past Surgical History: Heart Catheterization With Stent Additional Past Surgical History / Comment(s): shyla big toe removal Date of Last Stent Placement:: unknown Past Psychological History: Unable to Obtain Smoking Status: Never smoker Past Alcohol Use History: None Reported Past Drug Use History: None Reported Medications and Allergies Home Medications Medication Instructions Recorded Confirmed Type Ascorbic Acid [Vitamin C] 500 mg PO BID 09/08/23 09/08/23 History Atorvastatin [Lipitor] 40 mg PO HS 09/08/23 09/08/23 History Cetirizine HCl [Zyrtec] 10 mg PO HS 09/08/23 09/08/23 History Cholecalciferol (Vitamin D3) 1,250 mcg PO WEEKLY 09/08/23 09/08/23 History [Vitamin D3 (1250 Mcg = 50,000 Iu)] Escitalopram [Lexapro] 10 mg PO DAILY 09/08/23 09/08/23 History Furosemide [Lasix] 20 mg PO DAILY 09/08/23 09/08/23 History Potassium Chloride [Klor-Con M10] 10 meq PO DAILY 09/08/23 09/08/23 History levETIRAcetam [Keppra] 500 mg PO Q12HR 09/08/23 09/08/23 History tiZANidine [Zanaflex] 4 mg PO TID 09/08/23 09/08/23 History Amiodarone [Cordarone] 400 mg PO BID tab 09/17/23 Rx Apixaban [Eliquis] 5 mg PO BID tab 09/17/23 Rx Aspirin 81 mg PO DAILY tab 09/17/23 Rx Cholestyramine (with Sugar) 4 gm PO BID@1000,1800 packet 09/17/23 Rx [Questran Packet] Dapagliflozin Propanediol [Farxiga] 10 mg PO DAILY tab 09/17/23 Rx HYDROcodone/APAP 5-325MG [Downing 1 each PO Q6H PRN #12 tab 09/17/23 Rx 5-325] INSULIN LISPRO (HumaLOG) [humaLOG] 0 unit SQ ACHS #10 ml 09/17/23 Rx Insulin Detemir (Levemir) [Levemir] 15 unit SQ HS each 09/17/23 Rx Ipratropium-Albuterol Nebulize 3 ml INHALATION RT-QID each 09/17/23 Rx [Duoneb 0.5 mg-3 mg/3 ml Soln] Losartan [Cozaar] 25 mg PO DAILY tab 09/17/23 Rx Metoprolol Tartrate [Lopressor] 25 mg PO BID tab 09/17/23 Rx Nystatin 100,000 Unit/gm Oint 1 applic TOPICAL BID each 09/17/23 Rx [Mycostatin Oint] Allergies Allergy/AdvReac Type Severity Reaction Status Date / Time No Known Allergies Allergy Verified 09/08/23 10:10 Surgical - Exam Vital Signs Temp Pulse Resp BP Pulse Ox FiO2 97.6 F 67 22 76/49 97 35 09/07/23 23:09 09/07/23 23:09 09/07/23 23:09 09/07/23 23:09 09/07/23 23:09 09/07/23 23:09 Results - Labs 09/25/23 04:38 09/25/23 04:38 Abnormal Lab Results - Last 24 Hours (Table) 09/24/23 09/24/23 09/24/23 Range/Units 12:32 16:43 22:59 WBC (3.8-10.6) k/uL RBC (4.30-5.90) m/uL Hgb (13.0-17.5) gm/dL Hct (39.0-53.0) % Neutrophils # (1.3-7.7) k/uL Lymphocytes # (1.0-4.8) k/uL ABG HCO3 (21-25) mmol/L ABG Total CO2 (19-24) mmol/L ABG O2 Saturation (94-97) % Sodium (137-145) mmol/L BUN (9-20) mg/dL Creatinine (0.66-1.25) mg/dL Glucose (74-99) mg/dL POC Glucose (mg/dL) 211 H 179 H (70-110) mg/dL Calcium (8.4-10.2) mg/dL C-Reactive Protein (<1.0) mg/dL Procalcitonin (0.02-0.09) ng/mL Urine Protein 2+ H (Negative) Urine Blood Moderate H (Negative) Ur Leukocyte Esterase Large H (Negative) Urine RBC >182 H (0-5) /hpf Urine WBC >182 H (0-5) /hpf Urine WBC Clumps Many H (None) /hpf Urine Bacteria Occasional H (None) /hpf Urine Yeast (Budding) Many H (None) /hpf 09/25/23 09/25/23 09/25/23 Range/Units 04:38 04:38 04:38 WBC 10.8 H (3.8-10.6) k/uL RBC 2.58 L (4.30-5.90) m/uL Hgb 7.9 L (13.0-17.5) gm/dL Hct 24.1 L (39.0-53.0) % Neutrophils # 9.0 H (1.3-7.7) k/uL Lymphocytes # 0.8 L (1.0-4.8) k/uL ABG HCO3 (21-25) mmol/L ABG Total CO2 (19-24) mmol/L ABG O2 Saturation (94-97) % Sodium 136 L (137-145) mmol/L BUN 37 H (9-20) mg/dL Creatinine 2.94 H (0.66-1.25) mg/dL Glucose 161 H (74-99) mg/dL POC Glucose (mg/dL) (70-110) mg/dL Calcium 7.3 L (8.4-10.2) mg/dL C-Reactive Protein 17.8 H (<1.0) mg/dL Procalcitonin 6.46 H (0.02-0.09) ng/mL Urine Protein (Negative) Urine Blood (Negative) Ur Leukocyte Esterase (Negative) Urine RBC (0-5) /hpf Urine WBC (0-5) /hpf Urine WBC Clumps (None) /hpf Urine Bacteria (None) /hpf Urine Yeast (Budding) (None) /hpf 09/25/23 09/25/23 09/25/23 Range/Units 04:44 05:57 11:26 WBC (3.8-10.6) k/uL RBC (4.30-5.90) m/uL Hgb (13.0-17.5) gm/dL Hct (39.0-53.0) % Neutrophils # (1.3-7.7) k/uL Lymphocytes # (1.0-4.8) k/uL ABG HCO3 27 H (21-25) mmol/L ABG Total CO2 29 H (19-24) mmol/L ABG O2 Saturation 97.3 H (94-97) % Sodium (137-145) mmol/L BUN (9-20) mg/dL Creatinine (0.66-1.25) mg/dL Glucose (74-99) mg/dL POC Glucose (mg/dL) 185 H 148 H (70-110) mg/dL Calcium (8.4-10.2) mg/dL C-Reactive Protein (<1.0) mg/dL Procalcitonin (0.02-0.09) ng/mL Urine Protein (Negative) Urine Blood (Negative) Ur Leukocyte Esterase (Negative) Urine RBC (0-5) /hpf Urine WBC (0-5) /hpf Urine WBC Clumps (None) /hpf Urine Bacteria (None) /hpf Urine Yeast (Budding) (None) /hpf Microbiology - Last 24 Hours (Table) 09/24/23 12:32 Urine Culture - Preliminary Urine,Voided Yeast species 09/24/23 10:00 Gram Stain - Preliminary Sputum Diabetes panel 09/25/23 Range/Units 04:38 Sodium 136 L (137-145) mmol/L Potassium 3.8 (3.5-5.1) mmol/L Chloride 105 (98-107) mmol/L Carbon Dioxide 25 (22-30) mmol/L BUN 37 H (9-20) mg/dL Creatinine 2.94 H (0.66-1.25) mg/dL Glucose 161 H (74-99) mg/dL Calcium 7.3 L (8.4-10.2) mg/dL Calcium panel 09/25/23 Range/Units 04:38 Calcium 7.3 L (8.4-10.2) mg/dL Pituitary panel 09/25/23 Range/Units 04:38 Sodium 136 L (137-145) mmol/L Potassium 3.8 (3.5-5.1) mmol/L Chloride 105 (98-107) mmol/L Carbon Dioxide 25 (22-30) mmol/L BUN 37 H (9-20) mg/dL Creatinine 2.94 H (0.66-1.25) mg/dL Glucose 161 H (74-99) mg/dL Calcium 7.3 L (8.4-10.2) mg/dL Adrenal panel 09/25/23 Range/Units 04:38 Sodium 136 L (137-145) mmol/L Potassium 3.8 (3.5-5.1) mmol/L Chloride 105 (98-107) mmol/L Carbon Dioxide 25 (22-30) mmol/L BUN 37 H (9-20) mg/dL Creatinine 2.94 H (0.66-1.25) mg/dL Glucose 161 H (74-99) mg/dL Calcium 7.3 L (8.4-10.2) mg/dL
[2023-09-25 18:06] LABS: Glucose,Whole Blood 219 mg/dL (70-110)
[2023-09-25 20:02] LABS: Glucose,Whole Blood 241 mg/dL (70-110)
[2023-09-25 21:42] LABS: HCT 26.2 % (39.0-53.0); HGB 8.3 gm/dL (13.0-17.5); Hypochromasia Marked; MCH 29.8 pg (25.0-35.0); MCHC 31.7 g/dL (31.0-37.0); Mean Platelet Volume 10.4; Platelet Count 249 k/uL (150-450); RBC 2.79 m/uL (4.30-5.90); RDW 13.6 % (11.5-15.5); WBC 13.4 k/uL (3.8-10.6)
[2023-09-25 23:06] LABS: Glucose,Whole Blood 223 mg/dL (70-110)
[2023-09-26 04:20] LABS: Basophils % (A) 0 %; Eosinophils % (A) 0 %; HCT 24.8 % (39.0-53.0); HGB 7.7 gm/dL (13.0-17.5); Hypochromasia Slight; Lymphocytes # (A) 0.8 k/uL (1.0-4.8); Lymphocytes % (A) 7 %; MCH 28.8 pg (25.0-35.0); MCHC 31.1 g/dL (31.0-37.0); MCV 92.8 fL (80.0-100.0); Mean Platelet Volume 9.6; Monocytes # (A) 0.7 k/uL (0-1.0); Monocytes % (A) 6 %; Neutrophils # (A) 9.7 k/uL (1.3-7.7); Neutrophils % (A) 85 %; Platelet Count 276 k/uL (150-450); RBC 2.67 m/uL (4.30-5.90); RDW 13.7 % (11.5-15.5); WBC 11.4 k/uL (3.8-10.6)
[2023-09-26 04:45] LABS: African American GFR (CKD) 27 (>60 ml/min/1.73 sqM); Anion Gap 6 mmol/L; Blood Urea Nitrogen 35 mg/dL (9-20); Calcium 7.5 mg/dL (8.4-10.2); Carbon Dioxide 28 mmol/L (22-30); Chloride 99 mmol/L (98-107); Glucose 187 mg/dL (74-99); Magnesium 2.3 mg/dL (1.6-2.3); Non-African American GFR(CKD) 23 (>60 ml/min/1.73 sqM); Potassium 4.1 mmol/L (3.5-5.1); Sodium 133 mmol/L (137-145)
[2023-09-26 05:21] LABS: Glucose,Whole Blood 181 mg/dL (70-110)
[2023-09-26 05:33] LABS: ABG Base Excess 6.2 mmol/L; ABG HCO3 30 mmol/L (21-25); ABG Oxygen Saturation 95.3 % (94-97); ABG PCO2 41 mmHg (35-45); ABG PH 7.48 (7.35-7.45); ABG PO2 71 mmHg (83-108); ABG TCO2 32 mmol/L (19-24); Allen Test Performed? Yes
[2023-09-26] MEDS: PANTOPRAZOLE 40 MG/10 ML VIAL IV SCH (08:24)
[2023-09-26] MEDS: DESMOPRESSIN ACETATE 20 MCG in SODIUM CHLORIDE 0.9% 50 ML IVPB ONE (09:30)
[2023-09-26] MEDS ORDERED: VECURONIUM 10 MG VIAL IV ONE (09:44)
[2023-09-26] MEDS ORDERED: ROCURONIUM 10 MG/ML (5 ML VIAL) IV ONE (09:44)
[2023-09-26] MEDS ORDERED: MIDAZOLAM 2 MG/2 ML VIAL ONE (09:44)
[2023-09-26] MEDS ORDERED: fentaNYL (PF) 50 MCG/ML 2 ML AMP ONE (09:44)
--- NOTE | 2023-09-26 10:52 | P.OP ---
Date of Procedure: 09/26/23 Preoperative Diagnosis: respiratory failure protein calorie Malnutrition Postoperative Diagnosis: same Procedure(s) Performed: tracheostomy EGD with PEG tube placement Anesthesia: SUSAN Surgeon: Danilo Weeks Pathology: none sent Condition: stable Disposition: PACU Description of Procedure: The patient's placed on the bed in the supine position. The patient received general anesthesia. The neck was prepped and draped in usual sterile fashion. A standard transverse skin incision was made approximately 2 cm above the sternal notch. Using electrocautery the subcutaneous tissues were divided. The platysma was divided. A Wheatlander retractor was placed in the wound. Next the strap muscles were divided in the midline. Another weatlander retractor was placed the wound. The pretracheal fat was then divided with left cautery. The trachea was exposed. At this point the HANDYPERSON advance the and the tracheal tube into the right mainstem bronchus. The balloon was inflated. A tracheotomy was then performed between the second and third tracheal rings. The perivascular tissues a gracilis the trachea. The endotracheal tube was brought back under direct vision. And then the #8 Portex tracheostomy tube was placed into the trachea. End-tidal CO2 was confirmed. The patient had been connected to the ventilator. The patient was ventilated satisfactory. The skin incision site was then closed with 3-0 nylon after the retractors were withdrawn. An umbilical tie was used to secure the tracheostomy tube. Next the gastroscope placed oropharynx passed in the esophagus and stomach. There is no evidence of any outlet obstruction. Stomach was insufflated with air. The light reflux seen the anterior abdominal wall. The abdomen was prepped and draped usual fashion. The skin was incised. And the needles placed and stomach under direct visualization. The needle was snared. And the wires placed through the needle and the wire was snared and brought the oropharynx. The PEG tube was placed over top the wire brought down to the stomach. The PEG tube was secured. At the 3 cm franny. The one-piece bolster was used. Patient tolerated procedure well.
--- NOTE | 2023-09-26 10:53 | P.PN ---
Subjective Patient is seen in follow-up for acute kidney injury. Started on hemodialysis September 22, 2023. no problems with dialysis yesterday. Oliguric. Off Levophed. undergoing tracheostomy and PEG tube placement today. Vital signs are stable. General: Resting in bed. HEENT: Intubated. LUNGS: Scattered rhonchi. HEART: Rate and Rhythm are regular. ABDOMEN: No distention. EXTREMITITES: 2+ edema. Scrotal edema noted. Objective - Vital Signs Vital signs: Vital Signs Temp 98.2 F 09/26/23 10:29 Pulse 82 09/26/23 10:29 Resp 24 09/26/23 10:29 BP 115/50 09/26/23 10:29 Pulse Ox 91 L 09/26/23 10:29 FiO2 50 09/26/23 09:09 Intake & Output 09/25/23 09/26/23 09/26/23 18:59 06:59 18:59 Intake Total 1440.556 461 559 Output Total 6435 1500 0 Balance -4994.444 -1039 559 Intake: IV 156 156 139 0.9 sodium chloride 120 120 30 Piperacillin-Tazobactam 3 100 .375 gm In Sodium Chloride 0.9% 100 ml @ 25 mls/hr IVPB Q8HR [facility] Rx# :[id number] Pressure Bag 36 36 9 Intake, IV Titration 194.556 50 Amount Desmopressin Acetate 20 50 mcg In Sodium Chloride 0. 9% 50 ml @ 200 mls/hr IVPB ONCE ONE Rx#: [id number] Norepinephrine 4 mg In 76.218 Sodium Chloride 0.9% 250 ml @ 0.03 MCG/KG/MIN 11. 064 mls/hr IV .[id number] [facility] Rx#:[id number] propofoL 1,000 mg In 118.338 Empty Bag 1 bag @ 15 MCG/ KG/MIN 8.712 mls/hr IV . [id number] [facility] Rx#:[id number] Oral 180 Tube Feeding 420 245 Blood Product 280 Rc Pheresis As-3 Unit 280 [id number] Hemodialysis 400 Other 90 60 90 Rc Pheresis As-3 Unit 50 [id number] Output: Urine 35 0 0 Stool 1500 Hemodialysis 3400 Hemodialysis Net Amount 3000 Other: Voiding Method Indwelling Catheter Indwelling Catheter Indwelling Catheter ABP, PAP, CO, CI - Last Documented Arterial Blood Pressure 141/59 - Labs CBC & Chem 7: 09/26/23 04:00 09/26/23 04:00 Labs: Abnormal Lab Results - Last 24 Hours (Table) 09/25/23 09/25/23 09/25/23 Range/Units 11:26 18:05 20:01 WBC (3.8-10.6) k/uL RBC (4.30-5.90) m/uL Hgb (13.0-17.5) gm/dL Hct (39.0-53.0) % Neutrophils # (1.3-7.7) k/uL Lymphocytes # (1.0-4.8) k/uL ABG pH (7.35-7.45) ABG pO2 (83-108) mmHg ABG HCO3 (21-25) mmol/L ABG Total CO2 (19-24) mmol/L Sodium (137-145) mmol/L BUN (9-20) mg/dL Creatinine (0.66-1.25) mg/dL Glucose (74-99) mg/dL POC Glucose (mg/dL) 148 H 219 H 241 H (70-110) mg/dL Calcium (8.4-10.2) mg/dL Crossmatch 09/25/23 09/25/23 09/26/23 Range/Units 21:27 23:04 04:00 WBC 13.4 H 11.4 H (3.8-10.6) k/uL RBC 2.79 L 2.67 L (4.30-5.90) m/uL Hgb 8.3 L 7.7 L (13.0-17.5) gm/dL Hct 26.2 L 24.8 L (39.0-53.0) % Neutrophils # 9.7 H (1.3-7.7) k/uL Lymphocytes # 0.8 L (1.0-4.8) k/uL ABG pH (7.35-7.45) ABG pO2 (83-108) mmHg ABG HCO3 (21-25) mmol/L ABG Total CO2 (19-24) mmol/L Sodium (137-145) mmol/L BUN (9-20) mg/dL Creatinine (0.66-1.25) mg/dL Glucose (74-99) mg/dL POC Glucose (mg/dL) 223 H (70-110) mg/dL Calcium (8.4-10.2) mg/dL Crossmatch 09/26/23 09/26/23 09/26/23 Range/Units 04:00 04:32 05:20 WBC (3.8-10.6) k/uL RBC (4.30-5.90) m/uL Hgb (13.0-17.5) gm/dL Hct (39.0-53.0) % Neutrophils # (1.3-7.7) k/uL Lymphocytes # (1.0-4.8) k/uL ABG pH (7.35-7.45) ABG pO2 (83-108) mmHg ABG HCO3 (21-25) mmol/L ABG Total CO2 (19-24) mmol/L Sodium 133 L (137-145) mmol/L BUN 35 H (9-20) mg/dL Creatinine 2.76 H (0.66-1.25) mg/dL Glucose 187 H (74-99) mg/dL POC Glucose (mg/dL) 181 H (70-110) mg/dL Calcium 7.5 L (8.4-10.2) mg/dL Crossmatch See Detail 09/26/23 Range/Units 05:29 WBC (3.8-10.6) k/uL RBC (4.30-5.90) m/uL Hgb (13.0-17.5) gm/dL Hct (39.0-53.0) % Neutrophils # (1.3-7.7) k/uL Lymphocytes # (1.0-4.8) k/uL ABG pH 7.48 H (7.35-7.45) ABG pO2 71 L (83-108) mmHg ABG HCO3 30 H (21-25) mmol/L ABG Total CO2 32 H (19-24) mmol/L Sodium (137-145) mmol/L BUN (9-20) mg/dL Creatinine (0.66-1.25) mg/dL Glucose (74-99) mg/dL POC Glucose (mg/dL) (70-110) mg/dL Calcium (8.4-10.2) mg/dL Crossmatch Microbiology - Last 24 Hours (Table) 09/24/23 10:00 Gram Stain - Final Sputum Sputum Culture - Final Lisa albicans 09/20/23 14:55 Blood Culture - Final Blood 09/24/23 11:10 Blood Culture - Preliminary Blood 09/24/23 10:58 Blood Culture - Preliminary Blood 09/24/23 12:32 Urine Culture - Preliminary Urine,Voided Yeast species Assessment and Plan Plan: Assessment: 1. Acute kidney injury secondary to ATN secondary to hypotension requiring vasopressor support. Baseline creatinine near 1. Oliguric. No hydronephrosis noted on kidney ultrasound. Started on hemodialysis September 21 to 2023 via temporary catheter dialysis catheter. 2. Septic shock secondary to pneumonia on antibiotics. ID following. 3. Metabolic acidosis secondary to acute kidney injury and IV fluids. Improved. 4. Acute hypoxic respiratory failure secondary to pneumonia. Intubated. 5. DKA on presentation status post insulin drip. 6. Hyperphosphatemia secondary to acute kidney injury. Phosphorus level 5.5 dated September 22, 2023. 7. Volume overload. Plan: continue with daily hemodialysis. Maintain IV Lasix 80 mg twice daily. tracheostomy and PEG tube placement today. Continue to monitor renal function and urine output. Wean FiO2. Now off Levophed. DC bicarb.
[2023-09-26 11:33] LABS: Glucose,Whole Blood 182 mg/dL (70-110)
[2023-09-26 11:41] LABS: HCT 22.9 % (39.0-53.0); HGB 7.3 gm/dL (13.0-17.5); Hypochromasia Moderate; MCH 29.7 pg (25.0-35.0); MCHC 31.7 g/dL (31.0-37.0); MCV 93.6 fL (80.0-100.0); Mean Platelet Volume 10.6; Platelet Count 228 k/uL (150-450); RBC 2.45 m/uL (4.30-5.90); RDW 13.6 % (11.5-15.5); WBC 12.4 k/uL (3.8-10.6)
--- NOTE | 2023-09-26 12:32 | P.PN ---
Subjective Principal diagnosis: Progress note dated 09/22/23 67-year-old male with past medical history significant for diabetes mellitus, prior toe amputations, hyperlipidemia, coronary artery disease with previous stents, and seizure disorder who presented to the ED on 09/06 with DKA unresponsive intubated and mechanically ventilated. Patient was admitted to the ICU for DKA, respiratory failure, and MARIANO. He remained in the ICU until 09/12 when he was transferred to the floors. On 09/18 he was scheduled for colonoscopy as well as PEG placement on 09/21. On 09/18 his O2 requirement increased from 2-6L NC. A Team was called and he was reintubated and transferred to the ICU. Patient was evaluated today on 09/18/2023, patient is about the same, continues to have some discomfort in his back and in his rectal area, supposed to have colonoscopy tomorrow. Eliquis remains on hold. Patient has no active pulmonary issues. WBC count is 8.6 hemoglobin 10.2 electrolytes are normal renal profile is normal The patient was seen today September 19, 2023 in follow-up on the selective care unit. Today he is found to be weak and obtunded. He is requiring more oxygen currently at 6 L high flow nasal cannula. A rapid response team was called on him. Chest x-ray and ABGs reviewed. He will be transferred to the intensive care unit. Serial blood gases on 100% FiO2 revealed a P O2 of 66, pCO2 of 49 and a pH of 7.32. White count 9.9. Hemoglobin 11.3. Platelets 233. Sodium 143. Potassium 4.5. Bicarb 26. BUN 17. Creatinine 0.87. Glucose 151. The patient has been having concerns of rectal pain and possible rectal mass and the plan was for colonoscopy. However the patient was having ongoing issues with difficulty in swallowing and was being considered for PEG tube placement. This was prior to his change in clinical status. X-ray did reveal a right lower lobe infiltrate with minimal right pleural effusion. Patient was evaluated today on 09/20/2023, patient developed a worsening pulmonary status yesterday, required transfer to the ICU intubation mechanical ventilation. I saw the patient yesterday, he underwent bronchoscopy, lines were placed and the patient, and he was kept on mechanical ventilation overnight. Patient is now on assist-control rate of 24 tidal volume 450 FiO2 was 80% earlier but is now 50%, and PEEP of 10 ABG showed a pO2 of 92 pCO2 47 pH of 7.30 his urine output is 5 to 20 cc/h, however his CVP is low and the patient will require more fluid boluses if no improvement after fluid boluses, then we will give the patient Lasix. In the meantime the patient is requiring propofol at 35 mg/kg/min norepinephrine at 0.06 mg/kg/min IV fluid running at 100 cc/h and the patient is also receiving vital HP at 10 cc/h antibiotics rosario he is receiving Flagyl and Zosyn. Chest x-ray continues to show bilateral infiltrates consistent with most likely aspiration pneumonia. Patient was seen by infectious disease and he is now on Flagyl and ZosynWBC count today is 13 hemoglobin 9.3 basic metabolic profile is normal renal profile showed a BUN of 29 creatinine 1.45 Patient was evaluated today on 09/21/2023, remains in the ICU, intubated and mechanically ventilated. Patient is on assist-control rate of 24 tidal volume 450 FiO2 50% and PEEP of 10 ABG showed a pO2 of 79 pCO2 43 pH of 7.26, apparently the patient developed some metabolic acidosis associated with acute kidney injury, and I have recommended 1 amp of bicarb to be given and sodium bicarb to be given orally and I also recommended nephrology evaluation on this patient as his renal status seems to be getting worse and the patient is having less and less urine output. CVP is around 7 patient will receive more fluids today, may consider Lasix depending on the response to fluid boluses. Urine output is extremely low. And again his renal functioning is getting worse. Patient remains on propofol at 50 mcg/kg/min he is also on norepinephrine at 0.03 mcg/kg/min, patient is receiving Glucerna 1.5/enteral feeding, patient remains on Lovenox 80 mg SQ twice daily, he is also on Zosyn and Flagyl. Chest x-ray continues to show bilateral infiltrates. Improved compared to his initial chest x-ray but nonetheless considered to be significant airspace disease bilaterally. Microbiology from the bronchial washing/lavage, showed mostly C andida, Gram stains and cultures from previous sputum from 09/08/2023 showed E. coli Staph aureus and Streptococcus agalactiae Patient was evaluated today on 09/22/2023, remains in the ICU, intubated and mechanically ventilated. He is on propofol 25 mcg/kg/min, Levophed 0.09 mcg/kg/min, and .9 NS IVF at 10cc/h patient is on assist-control rate of 24 tidal volume 450 FiO2 50% and PEEP of 10. ABG shows pH 7.24 pCO2 42 and pO2 of 97. Patient exhibits normal anion gap metabolic acidosis. Sodium 145, potassium 4.4, chloride 119, CO2 16, BUN 46, creatinine 2.98, glucose 178, and albumin 1.7. He received Sodium bicarb orally, 1amp IVP bicarb, and 80 mg Lasix as per nephrology's recommendation due to patient's poor urine output despite fluids and Lasix. Renal ultrasound showed no hydronephrosis and a left renal cyst. X-ray shows worsening bibasilar infiltrates. Bronchial washings showed Lisa albicans. He is on Zosyn 25ml/hr. Patient was evaluated today on 09/23/2023, remains in ICU, intubated and mechanically ventilated. He is on propofol 50 mcg/kg/min, Levophed 0.06 mcg/kg/min, and 0.9 normal saline IV fluids at 10 cc/h. Patient is on assist- control rate of 24 tidal volume 450 FiO2 50% and PEEP of 10. ABG shows pH of 7.32 pCO2 of 44 and pO2 of 70. Sodium is 143, potassium 4.2, chloride 113, CO2 21, BUN 42, creatinine 3.07, glucose 164, cortisol 11.7 and TSH was 0.618. U rine output remains poor despite fluid restriction and Lasix. Nephrology has discontinued the Lasix drip of 10 mcg/h and placed the patient on 80 mg IVP twice daily. Patient was dialyzed 1L yesterday and is currently undergoing dialysis with a goal of 2.5 L and tolerating well. Patient has FMS in place. He is receiving Glucerna tube feeds at a rate of 35/h. Chest x-ray today remains unchanged shows bibasilar infiltrates with a small right pleural effusion. Patient was evaluated today on 09/24/2023, remains in ICU, intubated and mechanically ventilated. Overnight he was on propofol at a rate of 40 mcg/kg/min, Levophed 0.03 mcg/kg/min, and 0.9 normal saline at 10/h. Patient is on assist-control rate of 24, tidal volume 450, FiO2 50%, PEEP of 10. ABG shows pO2 of 78, CO2 43, pH 7.35. Sodium is 139, potassium 4.4, chloride 108, CO2 21, BUN 40, creatinine 3.11, glucose 194. Blood glucose levels have been ranging in the 200s over the last 24 hours. Urine output remains poor despite fluid restriction and Lasix 80 mg twice daily. Patient was dialyzed 2.9 L yesterday and is undergoing dialysis today with a goal of 3 L. Daily interruption of sedation was unsuccessful yesterday: Patient became asynchronous with the vent, was not arousable, and did not follow commands so SBT was not attempted. Patient has FMS in place. He is receiving Glucerna feeds at a rate of 35/hour. Chest x-ray shows bibasilar infiltrates with slight improvement. Patient has had mild low-grade fevers with a Tmax of 101.3. White count has increased to 13.4 from 9.1 yesterday. Blood culture from 09/19 shows no growth after 72 hours. Procalcitonin yesterday was 5.47. He remains on Zosyn. This morning propofol and Levophed were held for daily interruption of sedation and possible SBT today. Patient was evaluated today on 09/25/2023, remains in ICU, intubated and mechanically ventilated. He is on propofol at a rate of 40 mcg/kg/min, Levophed 0.03 mcg/kg/min, and 0.9 normal saline at 10/h. Patient is on assist control rate of 24, tidal volume 450, FiO2 50%, PEEP of 10. ABG shows PaO2 91, CO2 44, pH 7.4. Sodium is 136, potassium 3.8 which has been repleted, chloride 105, CO2 25, BUN 37, creatinine 2.94, glucose 161. Urine output remains poor despite fluid restriction and Lasix 80 mg twice daily. Patient was dialyzed 3 L yesterday and is undergoing dialysis today. Daily interruption of sedation was unsuccessful yesterday. Patient was not opening his eyes or moving his extremi ties, unable to follow commands, and asynchronous with the vent, so SBT was not attempted. Patient has FMS in place. He is receiving Glucerna feeds at a rate of 35 an hour. Chest x-ray shows worsening bibasilar consolidations. Patient had low-grade fever of 99.7. White count has decreased from 13.4 yesterday to 10.8 today. Blood culture, urine culture, and sputum culture have all been sent to the lab. Daily interruption of sedation & SBT as tolerated today. Attempts to contact family regarding possible trach and PEG are still ongoing due to patient's multiple unsuccessful attempts to wean off the ventilator. Patient was evaluated today on 09/26/2023, remains in ICU, intubated and mec hanically ventilated. Propofol & Levophed have been held since yesterday at 1pm. He is on 0.9NS at KVO. Patient is on assist control rate of 24, tidal volume 450, FiO2 50%, PEEP of 10. ABG shows PaO2 71, CO2 41, pH 7.48. Sodium is 133, potassium 4.1, chloride 99, CO2 28, BUN 35, creatinine 2.76, glucose 187. Urine output remains poor despite fluid restriction and Lasix 80 mg twice daily. Patient was dialyzed 3 L yesterday. Despite being off sedation, patient remains obtunded. He only responds mildly to sternal rubs Patient has FMS in place. Overnight at about 2:40am, the patient developed bright red liquid stool, BP was 118/49 with a map of 67 and a heart rate of 86. Hemoglobin was 8.3. As per primary team. OG was changed to LIS and hemoglobin was repeated. Lovenox & Glucerna tube feeds was held due to scheduled trach & PEG today. Hemoglobin this morning was 7.7. He received 1 unit and 20mg Ddavp given to optimize him for surgery today. White count is 11.4 today. Urine culture showed growth of yeasts and Eraxis was started as per ID's recommendations. Objective - Vital Signs Vital signs: Vital Signs Temp 98.2 F 09/26/23 10:29 Pulse 86 09/26/23 11:00 Resp 24 09/26/23 11:00 BP 115/50 09/26/23 10:29 Pulse Ox 92 L 09/26/23 11:00 FiO2 50 09/26/23 09:09 Intake & Output 09/25/23 09/26/23 09/26/23 18:59 06:59 18:59 Intake Total 1440.556 461 572 Output Total 6435 1500 1000 Balance -4994.444 -1039 -428 Intake: IV 156 156 152 0.9 sodium chloride 120 120 40 Piperacillin-Tazobactam 3 100 .375 gm In Sodium Chloride 0.9% 100 ml @ 25 mls/hr IVPB Q8HR [facility] Rx# :[id number] Pressure Bag 36 36 12 Intake, IV Titration 194.556 50 Amount Desmopressin Acetate 20 50 mcg In Sodium Chloride 0. 9% 50 ml @ 200 mls/hr IVPB ONCE ONE Rx#: [id number] Norepinephrine 4 mg In 76.218 Sodium Chloride 0.9% 250 ml @ 0.03 MCG/KG/MIN 11. 064 mls/hr IV .[id number] [facility] Rx#:[id number] propofoL 1,000 mg In 118.338 Empty Bag 1 bag @ 15 MCG/ KG/MIN 8.712 mls/hr IV . [id number] [facility] Rx#:[id number] Oral 180 Tube Feeding 420 245 Blood Product 280 Rc Pheresis As-3 Unit 280 [id number] Hemodialysis 400 Other 90 60 90 Rc Pheresis As-3 Unit 50 [id number] Output: Urine 35 0 0 Stool 1500 1000 Hemodialysis 3400 Hemodialysis Net Amount 3000 Other: Voiding Method Indwelling Catheter Indwelling Catheter Indwelling Catheter ABP, PAP, CO, CI - Last Documented Arterial Blood Pressure 106/48 - Exam GENERAL EXAM: 67-year-old white male intubated, mechanically ventilated, sedated, not in distress, generally edematous in all 4 extremities Endotracheal tube and orogastric tube are intact. HEAD: Normocephalic and atraumatic EYES: Within normal NOSE: Clear with pink turbinates. THROAT: No erythema or exudates. Dry mucous membranes. NECK: No masses, no JVD. L Subclavian central line is noted. CHEST: No chest wall deformity. LUNGS: Good breath sound bilaterally mostly diminished at the bases no crackles rhonchi or wheezes CVS: S1 and S2 normal with no soft systolic murmur, regular rhythm. No extra heart sounds ABDOMEN: Abdomen flat, diminished bowel sounds, no hepatosplenomegaly, no guarding or rigidity. SKIN: No rashes CENTRAL NERVOUS SYSTEM: Could not assess patient is intubated mechanically ventilated Theatric: Could not assess EXTREMITIES: no clubbing, no cyanosis, trace bipedal edema. - Additional findings Additional findings: Lines: L. radial ART 7/12 L.subclavian TLC 7/12 L. forearm PIVL 09/23 R. femoral dialysis 09/21 - Labs CBC & Chem 7: 09/26/23 11:30 09/26/23 04:00 Labs: Abnormal Lab Results - Last 24 Hours (Table) 09/25/23 09/25/23 09/25/23 Range/Units 18:05 20:01 21:27 WBC 13.4 H (3.8-10.6) k/uL RBC 2.79 L (4.30-5.90) m/uL Hgb 8.3 L (13.0-17.5) gm/dL Hct 26.2 L (39.0-53.0) % Neutrophils # (1.3-7.7) k/uL Lymphocytes # (1.0-4.8) k/uL ABG pH (7.35-7.45) ABG pO2 (83-108) mmHg ABG HCO3 (21-25) mmol/L ABG Total CO2 (19-24) mmol/L Sodium (137-145) mmol/L BUN (9-20) mg/dL Creatinine (0.66-1.25) mg/dL Glucose (74-99) mg/dL POC Glucose (mg/dL) 219 H 241 H (70-110) mg/dL Calcium (8.4-10.2) mg/dL Crossmatch 09/25/23 09/26/23 09/26/23 Range/Units 23:04 04:00 04:00 WBC 11.4 H (3.8-10.6) k/uL RBC 2.67 L (4.30-5.90) m/uL Hgb 7.7 L (13.0-17.5) gm/dL Hct 24.8 L (39.0-53.0) % Neutrophils # 9.7 H (1.3-7.7) k/uL Lymphocytes # 0.8 L (1.0-4.8) k/uL ABG pH (7.35-7.45) ABG pO2 (83-108) mmHg ABG HCO3 (21-25) mmol/L ABG Total CO2 (19-24) mmol/L Sodium 133 L (137-145) mmol/L BUN 35 H (9-20) mg/dL Creatinine 2.76 H (0.66-1.25) mg/dL Glucose 187 H (74-99) mg/dL POC Glucose (mg/dL) 223 H (70-110) mg/dL Calcium 7.5 L (8.4-10.2) mg/dL Crossmatch 09/26/23 09/26/23 09/26/23 Range/Units 04:32 05:20 05:29 WBC (3.8-10.6) k/uL RBC (4.30-5.90) m/uL Hgb (13.0-17.5) gm/dL Hct (39.0-53.0) % Neutrophils # (1.3-7.7) k/uL Lymphocytes # (1.0-4.8) k/uL ABG pH 7.48 H (7.35-7.45) ABG pO2 71 L (83-108) mmHg ABG HCO3 30 H (21-25) mmol/L ABG Total CO2 32 H (19-24) mmol/L Sodium (137-145) mmol/L BUN (9-20) mg/dL Creatinine (0.66-1.25) mg/dL Glucose (74-99) mg/dL POC Glucose (mg/dL) 181 H (70-110) mg/dL Calcium (8.4-10.2) mg/dL Crossmatch See Detail Microbiology - Last 24 Hours (Table) 09/24/23 10:00 Gram Stain - Final Sputum Sputum Culture - Final Lisa albicans 09/20/23 14:55 Blood Culture - Final Blood 09/24/23 11:10 Blood Culture - Preliminary Blood 09/24/23 10:58 Blood Culture - Preliminary Blood 09/24/23 12:32 Urine Culture - Preliminary Urine,Voided Yeast species Assessment and Plan Assessment: Acute hypoxic respiratory failure secondary to aspiration pneumonia s/p reintubation on 09/19/23 Aspiration PNA Left lower lobe sputum culture(E.coli, MSSA, Group B Strep) Hypotension due to suspected septic shock from pneumonia Acute kidney injury Malnutrition with severe hypoalbuminemia Anasarca secondary to hypoalbuminemia Volume contraction metabolic alkalosis secondary to dialysis Candiduria Normal anion gap metabolic acidosis resolved Acute DKA resolved Hx of Type 2 DM Hx of B/L great toe amputations HX of Hyperlipidemia Hx of CAD with previous stent Hx of seizure disorder Plan Continue ventilator support Continue IVF at 10/hr & 80mg IVP BID as per nephro's recommendations Trach & PEG tube placement today Follow up Sputum culture Continue GI and DVT prophylaxis Continue Levemir insulin to 20 units for better glucose control Continue sliding scale NovoLog insulin as per protocol Start Eraxis 100mg q24hrs Patient is critically ill, prognosis is guarded Patient is critically ill and critical care time is over 30 Will continue to follow Time with Patient: Greater than 30
--- NOTE | 2023-09-26 14:07 | P.PN ---
Subjective Progress Note Date: 09/26/23 CHIEF COMPLAINT: rectal pain HISTORY OF PRESENT ILLNESS: 67-year-old male admitted to the hospital for DKA. patient is status post tracheostomy and PEG tube placement. Patient did have rectal bleeding. Hemoglobin 8.3 down to 7.3 PHYSICAL EXAM: VITAL SIGNS: Reviewed GENERAL: no acute distress. Intubated ABDOMEN: Soft. Nondistended. ASSESSMENT: 1. Acute hypoxic respiratory failure secondary to aspiration pneumonia patient required to be reintubated on September 19, 2023 and has not been able to wean from vent 2. Severe protein calorie malnutrition 3. Wall thickening of the rectum and sigmoid colon noted on CT PLAN: -consult dietitian start tube feeds tomorrow -Recommend colonoscopy on Friday with Dr. chowdhury for further evaluation of rectal bleeding and wall thickening of the rectum and sigmoid colon noted on CT Physician Admissions Dean note has been reviewed by physician. Signing provider agrees with the documented findings, assessment, and plan of care. Objective - Vital Signs Vital signs: Vital Signs Temp 98.7 F 09/26/23 14:03 Pulse 101 H 09/26/23 14:03 Resp 26 H 09/26/23 14:03 BP 120/56 09/26/23 14:03 Pulse Ox 90 L 09/26/23 14:03 FiO2 90 09/26/23 12:57 Intake & Output 09/25/23 09/26/23 09/26/23 18:59 06:59 18:59 Intake Total 1440.556 461 958 Output Total 6435 1500 1000 Balance -4994.444 -1039 -42 Weight 96.8 kg Intake: IV 156 156 178 0.9 sodium chloride 120 120 60 Piperacillin-Tazobactam 3 100 .375 gm In Sodium Chloride 0.9% 100 ml @ 25 mls/hr IVPB Q8HR [facility] Rx# :[id number] Pressure Bag 36 36 18 Intake, IV Titration 194.556 50 Amount Desmopressin Acetate 20 50 mcg In Sodium Chloride 0. 9% 50 ml @ 200 mls/hr IVPB ONCE ONE Rx#: [id number] Norepinephrine 4 mg In 76.218 Sodium Chloride 0.9% 250 ml @ 0.03 MCG/KG/MIN 11. 064 mls/hr IV .[id number] [facility] Rx#:[id number] propofoL 1,000 mg In 118.338 Empty Bag 1 bag @ 15 MCG/ KG/MIN 8.712 mls/hr IV . [id number] [facility] Rx#:[id number] Oral 180 Tube Feeding 420 245 Blood Product 590 Rc As-1 Unit 310 [id number] Rc Pheresis As-3 Unit 0 [id number] Rc Pheresis As-3 Unit 280 [id number] Hemodialysis 400 Other 90 60 140 Rc As-1 Unit 50 [id number] Rc Pheresis As-3 Unit 50 [id number] Output: Urine 35 0 0 Stool 1500 1000 Hemodialysis 3400 Hemodialysis Net Amount 3000 Other: Voiding Method Indwelling Catheter Indwelling Catheter Indwelling Catheter ABP, PAP, CO, CI - Last Documented Arterial Blood Pressure 112/54 - Labs CBC & Chem 7: 09/26/23 11:30 09/26/23 04:00 Labs: Abnormal Lab Results - Last 24 Hours (Table) 09/25/23 09/25/23 09/25/23 Range/Units 18:05 20:01 21:27 WBC 13.4 H (3.8-10.6) k/uL RBC 2.79 L (4.30-5.90) m/uL Hgb 8.3 L (13.0-17.5) gm/dL Hct 26.2 L (39.0-53.0) % Neutrophils # (1.3-7.7) k/uL Lymphocytes # (1.0-4.8) k/uL ABG pH (7.35-7.45) ABG pO2 (83-108) mmHg ABG HCO3 (21-25) mmol/L ABG Total CO2 (19-24) mmol/L Sodium (137-145) mmol/L BUN (9-20) mg/dL Creatinine (0.66-1.25) mg/dL Glucose (74-99) mg/dL POC Glucose (mg/dL) 219 H 241 H (70-110) mg/dL Calcium (8.4-10.2) mg/dL Crossmatch 09/25/23 09/26/23 09/26/23 Range/Units 23:04 04:00 04:00 WBC 11.4 H (3.8-10.6) k/uL RBC 2.67 L (4.30-5.90) m/uL Hgb 7.7 L (13.0-17.5) gm/dL Hct 24.8 L (39.0-53.0) % Neutrophils # 9.7 H (1.3-7.7) k/uL Lymphocytes # 0.8 L (1.0-4.8) k/uL ABG pH (7.35-7.45) ABG pO2 (83-108) mmHg ABG HCO3 (21-25) mmol/L ABG Total CO2 (19-24) mmol/L Sodium 133 L (137-145) mmol/L BUN 35 H (9-20) mg/dL Creatinine 2.76 H (0.66-1.25) mg/dL Glucose 187 H (74-99) mg/dL POC Glucose (mg/dL) 223 H (70-110) mg/dL Calcium 7.5 L (8.4-10.2) mg/dL Crossmatch 09/26/23 09/26/23 09/26/23 Range/Units 04:32 05:20 05:29 WBC (3.8-10.6) k/uL RBC (4.30-5.90) m/uL Hgb (13.0-17.5) gm/dL Hct (39.0-53.0) % Neutrophils # (1.3-7.7) k/uL Lymphocytes # (1.0-4.8) k/uL ABG pH 7.48 H (7.35-7.45) ABG pO2 71 L (83-108) mmHg ABG HCO3 30 H (21-25) mmol/L ABG Total CO2 32 H (19-24) mmol/L Sodium (137-145) mmol/L BUN (9-20) mg/dL Creatinine (0.66-1.25) mg/dL Glucose (74-99) mg/dL POC Glucose (mg/dL) 181 H (70-110) mg/dL Calcium (8.4-10.2) mg/dL Crossmatch See Detail 09/26/23 09/26/23 Range/Units 11:30 11:31 WBC 12.4 H (3.8-10.6) k/uL RBC 2.45 L (4.30-5.90) m/uL Hgb 7.3 L (13.0-17.5) gm/dL Hct 22.9 L (39.0-53.0) % Neutrophils # (1.3-7.7) k/uL Lymphocytes # (1.0-4.8) k/uL ABG pH (7.35-7.45) ABG pO2 (83-108) mmHg ABG HCO3 (21-25) mmol/L ABG Total CO2 (19-24) mmol/L Sodium (137-145) mmol/L BUN (9-20) mg/dL Creatinine (0.66-1.25) mg/dL Glucose (74-99) mg/dL POC Glucose (mg/dL) 182 H (70-110) mg/dL Calcium (8.4-10.2) mg/dL Crossmatch Microbiology - Last 24 Hours (Table) 09/24/23 12:32 Urine Culture - Final Urine,Voided Lisa albicans 09/24/23 10:00 Gram Stain - Final Sputum Sputum Culture - Final Lisa albicans 09/20/23 14:55 Blood Culture - Final Blood 09/24/23 11:10 Blood Culture - Preliminary Blood 09/24/23 10:58 Blood Culture - Preliminary Blood
--- NOTE | 2023-09-26 15:24 | P.PN ---
Subjective Progress Note Date: 09/26/23 Principal diagnosis: Reason for follow-up is fever Patient is a 67-year-old male with a past medical history significant for coronary disease diabetes mellitus PA seizure disorder history of diabetic foot infection status post bilateral big toe amputation presenting to the hospital with unresponsiveness patient was initially hypothermic subsequently started spiking fever initial workup with a chest x-ray and urine was negative.Patient is status post tracheostomy on 09/26/2023 On today's evaluation that is 09/26/2023, the patient continues to be afebrile , patient remains to be intubated on the vent through the trach , FiO2 is currently at 90% no significant purulent secretions through the ET, patient undergoing dialysis and has been tolerating it so far.the patient was noticed to have a bloody stool in the fecal management system which apparently started this morning and the patient did have multiple blood transfusionwhich apparently started this morningas reported by the nursing staff patient white count is 12.4 hemoglobin is 7.3. His creatinine is 2.76 Objective - Vital Signs Vital signs: Vital Signs Temp 98.7 F 09/26/23 12:57 Pulse 96 09/26/23 12:57 Resp 35 H 09/26/23 12:57 BP 101/49 09/26/23 12:57 Pulse Ox 90 L 09/26/23 12:57 FiO2 90 09/26/23 12:57 Intake & Output 09/25/23 09/26/23 09/26/23 18:59 06:59 18:59 Intake Total 1440.556 461 585 Output Total 6435 1500 1000 Balance -4994.444 -1039 -415 Weight 96.8 kg Intake: IV 156 156 165 0.9 sodium chloride 120 120 50 Piperacillin-Tazobactam 3 100 .375 gm In Sodium Chloride 0.9% 100 ml @ 25 mls/hr IVPB Q8HR [facility] Rx# :[id number] Pressure Bag 36 36 15 Intake, IV Titration 194.556 50 Amount Desmopressin Acetate 20 50 mcg In Sodium Chloride 0. 9% 50 ml @ 200 mls/hr IVPB ONCE ONE Rx#: [id number] Norepinephrine 4 mg In 76.218 Sodium Chloride 0.9% 250 ml @ 0.03 MCG/KG/MIN 11. 064 mls/hr IV .[id number] [facility] Rx#:[id number] propofoL 1,000 mg In 118.338 Empty Bag 1 bag @ 15 MCG/ KG/MIN 8.712 mls/hr IV . [id number] [facility] Rx#:[id number] Oral 180 Tube Feeding 420 245 Blood Product 280 Unit 0 Rc Pheresis As-3 Unit 280 [id number] Hemodialysis 400 Other 90 60 90 Rc Pheresis As-3 Unit 50 [id number] Output: Urine 35 0 0 Stool 1500 1000 Hemodialysis 3400 Hemodialysis Net Amount 3000 Other: Voiding Method Indwelling Catheter Indwelling Catheter Indwelling Catheter ABP, PAP, CO, CI - Last Documented Arterial Blood Pressure 121/52 - Exam GENERAL DESCRIPTION: An elderly male intubated on the vent through the trach RESPIRATORY SYSTEM: Unlabored breathing , decreased breath sounds at bases HEART: S1 S2 regular rate and rhythm , ABDOMEN: Soft , no tenderness EXTREMITIES: No edema feet - Labs CBC & Chem 7: 09/26/23 11:30 09/26/23 04:00 Labs: Abnormal Lab Results - Last 24 Hours (Table) 09/25/23 09/25/23 09/25/23 Range/Units 18:05 20:01 21:27 WBC 13.4 H (3.8-10.6) k/uL RBC 2.79 L (4.30-5.90) m/uL Hgb 8.3 L (13.0-17.5) gm/dL Hct 26.2 L (39.0-53.0) % Neutrophils # (1.3-7.7) k/uL Lymphocytes # (1.0-4.8) k/uL ABG pH (7.35-7.45) ABG pO2 (83-108) mmHg ABG HCO3 (21-25) mmol/L ABG Total CO2 (19-24) mmol/L Sodium (137-145) mmol/L BUN (9-20) mg/dL Creatinine (0.66-1.25) mg/dL Glucose (74-99) mg/dL POC Glucose (mg/dL) 219 H 241 H (70-110) mg/dL Calcium (8.4-10.2) mg/dL Crossmatch 09/25/23 09/26/23 09/26/23 Range/Units 23:04 04:00 04:00 WBC 11.4 H (3.8-10.6) k/uL RBC 2.67 L (4.30-5.90) m/uL Hgb 7.7 L (13.0-17.5) gm/dL Hct 24.8 L (39.0-53.0) % Neutrophils # 9.7 H (1.3-7.7) k/uL Lymphocytes # 0.8 L (1.0-4.8) k/uL ABG pH (7.35-7.45) ABG pO2 (83-108) mmHg ABG HCO3 (21-25) mmol/L ABG Total CO2 (19-24) mmol/L Sodium 133 L (137-145) mmol/L BUN 35 H (9-20) mg/dL Creatinine 2.76 H (0.66-1.25) mg/dL Glucose 187 H (74-99) mg/dL POC Glucose (mg/dL) 223 H (70-110) mg/dL Calcium 7.5 L (8.4-10.2) mg/dL Crossmatch 09/26/23 09/26/23 09/26/23 Range/Units 04:32 05:20 05:29 WBC (3.8-10.6) k/uL RBC (4.30-5.90) m/uL Hgb (13.0-17.5) gm/dL Hct (39.0-53.0) % Neutrophils # (1.3-7.7) k/uL Lymphocytes # (1.0-4.8) k/uL ABG pH 7.48 H (7.35-7.45) ABG pO2 71 L (83-108) mmHg ABG HCO3 30 H (21-25) mmol/L ABG Total CO2 32 H (19-24) mmol/L Sodium (137-145) mmol/L BUN (9-20) mg/dL Creatinine (0.66-1.25) mg/dL Glucose (74-99) mg/dL POC Glucose (mg/dL) 181 H (70-110) mg/dL Calcium (8.4-10.2) mg/dL Crossmatch See Detail 09/26/23 09/26/23 Range/Units 11:30 11:31 WBC 12.4 H (3.8-10.6) k/uL RBC 2.45 L (4.30-5.90) m/uL Hgb 7.3 L (13.0-17.5) gm/dL Hct 22.9 L (39.0-53.0) % Neutrophils # (1.3-7.7) k/uL Lymphocytes # (1.0-4.8) k/uL ABG pH (7.35-7.45) ABG pO2 (83-108) mmHg ABG HCO3 (21-25) mmol/L ABG Total CO2 (19-24) mmol/L Sodium (137-145) mmol/L BUN (9-20) mg/dL Creatinine (0.66-1.25) mg/dL Glucose (74-99) mg/dL POC Glucose (mg/dL) 182 H (70-110) mg/dL Calcium (8.4-10.2) mg/dL Crossmatch Microbiology - Last 24 Hours (Table) 09/24/23 12:32 Urine Culture - Final Urine,Voided Lisa albicans 09/24/23 10:00 Gram Stain - Final Sputum Sputum Culture - Final Lisa albicans 09/20/23 14:55 Blood Culture - Final Blood 09/24/23 11:10 Blood Culture - Preliminary Blood 09/24/23 10:58 Blood Culture - Preliminary Blood Assessment and Plan (1) Fever Current Visit: Yes Status: Acute Code(s): R50.9 - FEVER, UNSPECIFIED SNOMED Code(s): 566811969 (2) Pneumonia Current Visit: Yes Status: Acute Code(s): J18.9 - PNEUMONIA, UNSPECIFIED ORGANISM SNOMED Code(s): 890482406 (3) Diarrhea Current Visit: Yes Status: Acute Code(s): R19.7 - DIARRHEA, UNSPECIFIED SNOMED Code(s): 99520618 Plan: 1patient with an episode of less responsiveness and concern for possible a spiration but the patient has been transferred back to the ICU patient is status post bronchoscopy and cultures are currently growing Lisa albicans 2patient did have a new fever source likely catheter associated UTI with urine growing yeast, the patient is on amiodarone and cannot use Diflucan, Eraxis has been added by pulmonary 3patient also have developed bleeding per rectum being monitored by surgery stool for C. difficile requested and will treat if positive Dictation was produced using [employer] dictation software. please excuse any grammatical, word or spelling errors. Time with Patient: Less than 30
[2023-09-26] MEDS: ANIDULAFUNGIN 100 MG in SODIUM CHLORIDE 0.9% 100 ML IVPB SCH (16:09)
[2023-09-26] MEDS: DARBEPOETIN ALFA 40 MCG/0.4 ML SYRINGE SQ SCH (16:09)
[2023-09-26 16:37] LABS: HCT 29.9 % (39.0-53.0); Hypochromasia Slight; MCH 29.5 pg (25.0-35.0); MCHC 32.6 g/dL (31.0-37.0); MCV 90.5 fL (80.0-100.0); Platelet Count 294 k/uL (150-450); RBC 3.31 m/uL (4.30-5.90); RDW 14.9 % (11.5-15.5)
[2023-09-26 16:41] LABS: HGB 9.8 gm/dL (13.0-17.5)
[2023-09-26 18:00] LABS: Glucose,Whole Blood 159 mg/dL (70-110)
[2023-09-26 18:09] LABS: HGB 9.3 gm/dL (13.0-17.5); Hypochromasia Slight; MCH 28.9 pg (25.0-35.0); MCHC 31.9 g/dL (31.0-37.0); MCV 90.6 fL (80.0-100.0); Mean Platelet Volume 9.8; Platelet Count 279 k/uL (150-450); WBC 18.4 k/uL (3.8-10.6)
[2023-09-26 21:20] LABS: Glucose,Whole Blood 154 mg/dL (70-110)
[2023-09-27 00:04] LABS: Glucose,Whole Blood 153 mg/dL (70-110)
[2023-09-27 04:20] LABS: Glucose,Whole Blood 140 mg/dL (70-110)
[2023-09-27 05:02] LABS: ALT 13 U/L (4-49); AST 27 U/L (17-59); Albumin 1.8 g/dL (3.5-5.0); Alkaline Phosphatase 184 U/L (38-126); Anion Gap 12 mmol/L; Blood Urea Nitrogen 29 mg/dL (9-20); Calcium 7.4 mg/dL (8.4-10.2); Carbon Dioxide 21 mmol/L (22-30); Chloride 101 mmol/L (98-107); Glucose 165 mg/dL (74-99); Potassium 4.5 mmol/L (3.5-5.1); Sodium 134 mmol/L (137-145); Total Bilirubin 0.8 mg/dL (0.2-1.3); Total Protein 4.2 g/dL (6.3-8.2)
[2023-09-27 05:07] LABS: African American GFR (CKD) 30 (>60 ml/min/1.73 sqM); Non-African American GFR(CKD) 26 (>60 ml/min/1.73 sqM)
[2023-09-27 05:12] LABS: HCT 23.6 % (39.0-53.0); Hypochromasia Moderate; MCH 28.8 pg (25.0-35.0); MCHC 31.7 g/dL (31.0-37.0); MCV 90.9 fL (80.0-100.0); Mean Platelet Volume 9.9; Platelet Count 320 k/uL (150-450); Poikilocytosis Slight; RDW 15.2 % (11.5-15.5)
[2023-09-27 05:14] LABS: HGB 7.5 gm/dL (13.0-17.5)
[2023-09-27 05:47] LABS: ABG Base Excess -1.3 mmol/L; ABG HCO3 25 mmol/L (21-25); ABG Oxygen Saturation 99.1 % (94-97); ABG PCO2 45 mmHg (35-45); ABG PH 7.34 (7.35-7.45); ABG PO2 128 mmHg (83-108); ABG TCO2 26 mmol/L (19-24); Allen Test Performed? Yes
--- NOTE | 2023-09-27 07:27 | XR ---
EXAMINATION TYPE: XR chest 1V portable DATE OF EXAM: 09/27/2023 5:12 AM CLINICAL INDICATION:Male, 67 years old with history of Respiratory follow up; [facility] COMPARISON: Chest radiograph from one day prior. TECHNIQUE: XR chest 1V portable Frontal view of the chest. FINDINGS: Lungs/Pleura: Similar multifocal airspace opacities. No evidence of pneumothorax or pleural effusion. Pulmonary vascularity: Unremarkable. Heart/mediastinum: Cardiomediastinal silhouette is unremarkable. Musculoskeletal: No acute osseous pathology. Other findings: None Lines/Tubes: Tracheostomy cannula tip projecting over the trachea. Left central venous catheter with distal tip at the cavoatrial junction. IMPRESSION: Stable lungs with airspace opacities in lung bases.
[2023-09-27] MEDS: NOREPINEPHRINE 8 MG in SODIUM CHLORIDE 0.9% 250 ML IV SCH (09:56)
--- NOTE | 2023-09-27 11:16 | P.PN ---
Subjective Progress Note Date: 09/27/23 Patient is seen in follow-up for acute kidney injury. Started on hemodialysis September 22, 2023. Oliguric. s/p tracheostomy and PEG tube placement 09/25. Large GI bleeding overnight and more hemodynamically unstable today requiring Levophed. Plan for HD today as tolerated. Discussed with ICU and dialysis nursing. Vital signs reviewed General: Resting in bed. HEENT: Trach/vent LUNGS: Scattered rhonchi. HEART: Rate and Rhythm are regular. ABDOMEN: No distention. EXTREMITITES: 2+ edema. Scrotal edema noted. Objective - Vital Signs Vital signs: Vital Signs Temp 99.4 F 09/27/23 10:09 Pulse 92 09/27/23 10:09 Resp 36 H 09/27/23 10:09 BP 100/42 09/27/23 10:09 Pulse Ox 97 09/27/23 10:09 FiO2 60 09/27/23 08:27 Intake & Output 09/26/23 09/27/23 09/27/23 18:59 06:59 18:59 Intake Total 2412.352 521.648 891.853 Output Total 2960 2834 0 Balance -547.648 -2312.352 891.853 Weight 96.8 kg Intake: IV 343 269 139 0.9 sodium chloride 110 130 30 Piperacillin-Tazobactam 3 200 100 100 .375 gm In Sodium Chloride 0.9% 100 ml @ 25 mls/hr IVPB Q8HR [facility] Rx# :[id number] Pressure Bag 33 39 9 Intake, IV Titration 151.352 252.648 87.853 Amount Anidulafungin 100 mg In 100 Sodium Chloride 0.9% 100 ml @ 84 mls/hr IVPB DAILY [facility] Rx#:[id number] Desmopressin Acetate 20 50 mcg In Sodium Chloride 0. 9% 50 ml @ 200 mls/hr IVPB ONCE ONE Rx#: [id number] Norepinephrine 4 mg In 1.352 252.648 35 Sodium Chloride 0.9% 250 ml @ 0.03 MCG/KG/MIN 11. 064 mls/hr IV .[id number] [facility] Rx#:[id number] Norepinephrine 8 mg In 52.853 Sodium Chloride 0.9% 250 ml @ 0.1 MCG/KG/MIN 18. 731 mls/hr IV .[id number] [facility] Rx#:[id number] Blood Product 878 585 Rc As-1 Unit 310 [id number] Rc As-1 Unit 310 [id number] Rc Pheresis As-3 Unit 288 [id number] Rc Pheresis As-3 Unit 275 [id number] Rc Pheresis As-3 Unit 280 [id number] Hemodialysis 850 Other 190 80 Rc As-1 Unit 50 [id number] Rc As-1 Unit 50 [id number] Rc Pheresis As-3 Unit 50 [id number] Rc Pheresis As-3 Unit 50 [id number] Output: Urine 10 34 0 Stool 1000 2800 Hemodialysis 1400 Hemodialysis Net Amount 550 Other: Voiding Method Indwelling Catheter Indwelling Catheter ABP, PAP, CO, CI - Last Documented Arterial Blood Pressure 105/42 - Labs CBC & Chem 7: 09/27/23 05:11 09/27/23 04:15 Labs: Abnormal Lab Results - Last 24 Hours (Table) 09/26/23 09/26/23 09/26/23 Range/Units 04:32 11:30 11:31 WBC 12.4 H (3.8-10.6) k/uL RBC 2.45 L (4.30-5.90) m/uL Hgb 7.3 L (13.0-17.5) gm/dL Hct 22.9 L (39.0-53.0) % ABG pH (7.35-7.45) ABG pO2 (83-108) mmHg ABG Total CO2 (19-24) mmol/L ABG O2 Saturation (94-97) % Sodium (137-145) mmol/L Carbon Dioxide (22-30) mmol/L BUN (9-20) mg/dL Creatinine (0.66-1.25) mg/dL Glucose (74-99) mg/dL POC Glucose (mg/dL) 182 H (70-110) mg/dL Calcium (8.4-10.2) mg/dL Alkaline Phosphatase (38-126) U/L Total Protein (6.3-8.2) g/dL Albumin (3.5-5.0) g/dL Crossmatch See Detail 09/26/23 09/26/23 09/26/23 Range/Units 16:00 17:55 17:58 WBC 19.0 H 18.4 H (3.8-10.6) k/uL RBC 3.31 L 3.20 L (4.30-5.90) m/uL Hgb 9.8 L D 9.3 L (13.0-17.5) gm/dL Hct 29.9 L 29.0 L (39.0-53.0) % ABG pH (7.35-7.45) ABG pO2 (83-108) mmHg ABG Total CO2 (19-24) mmol/L ABG O2 Saturation (94-97) % Sodium (137-145) mmol/L Carbon Dioxide (22-30) mmol/L BUN (9-20) mg/dL Creatinine (0.66-1.25) mg/dL Glucose (74-99) mg/dL POC Glucose (mg/dL) 159 H (70-110) mg/dL Calcium (8.4-10.2) mg/dL Alkaline Phosphatase (38-126) U/L Total Protein (6.3-8.2) g/dL Albumin (3.5-5.0) g/dL Crossmatch 09/26/23 09/27/23 09/27/23 Range/Units 21:18 00:02 04:15 WBC (3.8-10.6) k/uL RBC (4.30-5.90) m/uL Hgb (13.0-17.5) gm/dL Hct (39.0-53.0) % ABG pH (7.35-7.45) ABG pO2 (83-108) mmHg ABG Total CO2 (19-24) mmol/L ABG O2 Saturation (94-97) % Sodium 134 L (137-145) mmol/L Carbon Dioxide 21 L (22-30) mmol/L BUN 29 H (9-20) mg/dL Creatinine 2.47 H (0.66-1.25) mg/dL Glucose 165 H (74-99) mg/dL POC Glucose (mg/dL) 154 H 153 H (70-110) mg/dL Calcium 7.4 L (8.4-10.2) mg/dL Alkaline Phosphatase 184 H (38-126) U/L Total Protein 4.2 L (6.3-8.2) g/dL Albumin 1.8 L (3.5-5.0) g/dL Crossmatch 09/27/23 09/27/23 09/27/23 Range/Units 04:18 05:11 05:43 WBC 20.0 H (3.8-10.6) k/uL RBC 2.60 L (4.30-5.90) m/uL Hgb 7.5 L D (13.0-17.5) gm/dL Hct 23.6 L (39.0-53.0) % ABG pH 7.34 L (7.35-7.45) ABG pO2 128 H (83-108) mmHg ABG Total CO2 26 H (19-24) mmol/L ABG O2 Saturation 99.1 H (94-97) % Sodium (137-145) mmol/L Carbon Dioxide (22-30) mmol/L BUN (9-20) mg/dL Creatinine (0.66-1.25) mg/dL Glucose (74-99) mg/dL POC Glucose (mg/dL) 140 H (70-110) mg/dL Calcium (8.4-10.2) mg/dL Alkaline Phosphatase (38-126) U/L Total Protein (6.3-8.2) g/dL Albumin (3.5-5.0) g/dL Crossmatch Microbiology - Last 24 Hours (Table) 09/25/23 17:40 Catheter Tip Culture - Final Catheter Tip Lisa albicans 09/24/23 11:10 Blood Culture - Preliminary Blood 09/24/23 10:58 Blood Culture - Preliminary Blood 09/19/23 15:30 Fungal Culture - Preliminary Bronchial Washings - Random Lisa albicans 09/24/23 12:32 Urine Culture - Final Urine,Voided Lisa albicans 09/24/23 10:00 Gram Stain - Final Sputum Sputum Culture - Final Lisa albicans Assessment and Plan Assessment: 1. Acute kidney injury secondary to ATN secondary to hypotension requiring vas opressor support. Baseline creatinine near 1. Oliguric. No hydronephrosis noted on kidney ultrasound. Started on hemodialysis September 21 to 2023 via temporary catheter dialysis catheter. 2. Septic shock secondary to pneumonia on antibiotics. ID following. 3. Metabolic acidosis secondary to acute kidney injury and IV fluids. Improved. 4. Acute hypoxic respiratory failure secondary to pneumonia. Intubated. 5. DKA on presentation status post insulin drip. 6. Hyperphosphatemia secondary to acute kidney injury. Phosphorus level 5.5 dated September 22, 2023. 7. Volume overload. Plan: Trial of HD today, goal UF 1L If pressors requirments increase will have to stop treatment. Maintain IV Lasix 80 mg twice daily. Given DDAVP yesterday, repeat dose not effective for 72 hours. Continue to monitor renal function and urine output. Wean FiO2. Continue wean Levophed.
--- NOTE | 2023-09-27 12:01 | P.PN ---
Subjective Principal diagnosis: Progress note dated 09/22/23 67-year-old male with past medical history significant for diabetes mellitus, prior toe amputations, hyperlipidemia, coronary artery disease with previous stents, and seizure disorder who presented to the ED on 09/06 with DKA unresponsive intubated and mechanically ventilated. Patient was admitted to the ICU for DKA, respiratory failure, and MARIANO. He remained in the ICU until 09/12 when he was transferred to the floors. On 09/18 he was scheduled for colonoscopy as well as PEG placement on 09/21. On 09/18 his O2 requirement increased from 2-6L NC. A Team was called and he was reintubated and transferred to the ICU. Patient was evaluated today on 09/18/2023, patient is about the same, continues to have some discomfort in his back and in his rectal area, supposed to have colonoscopy tomorrow. Eliquis remains on hold. Patient has no active pulmonary issues. WBC count is 8.6 hemoglobin 10.2 electrolytes are normal renal profile is normal The patient was seen today September 19, 2023 in follow-up on the selective care unit. Today he is found to be weak and obtunded. He is requiring more oxygen currently at 6 L high flow nasal cannula. A rapid response team was called on him. Chest x-ray and ABGs reviewed. He will be transferred to the intensive care unit. Serial blood gases on 100% FiO2 revealed a P O2 of 66, pCO2 of 49 and a pH of 7.32. White count 9.9. Hemoglobin 11.3. Platelets 233. Sodium 143. Potassium 4.5. Bicarb 26. BUN 17. Creatinine 0.87. Glucose 151. The patient has been having concerns of rectal pain and possible rectal mass and the plan was for colonoscopy. However the patient was having ongoing issues with difficulty in swallowing and was being considered for PEG tube placement. This was prior to his change in clinical status. X-ray did reveal a right lower lobe infiltrate with minimal right pleural effusion. Patient was evaluated today on 09/20/2023, patient developed a worsening pulmonary status yesterday, required transfer to the ICU intubation mechanical ventilation. I saw the patient yesterday, he underwent bronchoscopy, lines were placed and the patient, and he was kept on mechanical ventilation overnight. Patient is now on assist-control rate of 24 tidal volume 450 FiO2 was 80% earlier but is now 50%, and PEEP of 10 ABG showed a pO2 of 92 pCO2 47 pH of 7.30 his urine output is 5 to 20 cc/h, however his CVP is low and the patient will require more fluid boluses if no improvement after fluid boluses, then we will give the patient Lasix. In the meantime the patient is requiring propofol at 35 mg/kg/min norepinephrine at 0.06 mg/kg/min IV fluid running at 100 cc/h and the patient is also receiving vital HP at 10 cc/h antibiotics rosario he is receiving Flagyl and Zosyn. Chest x-ray continues to show bilateral infiltrates consistent with most likely aspiration pneumonia. Patient was seen by infectious disease and he is now on Flagyl and ZosynWBC count today is 13 hemoglobin 9.3 basic metabolic profile is normal renal profile showed a BUN of 29 creatinine 1.45 Patient was evaluated today on 09/21/2023, remains in the ICU, intubated and mechanically ventilated. Patient is on assist-control rate of 24 tidal volume 450 FiO2 50% and PEEP of 10 ABG showed a pO2 of 79 pCO2 43 pH of 7.26, apparently the patient developed some metabolic acidosis associated with acute kidney injury, and I have recommended 1 amp of bicarb to be given and sodium bicarb to be given orally and I also recommended nephrology evaluation on this patient as his renal status seems to be getting worse and the patient is having less and less urine output. CVP is around 7 patient will receive more fluids today, may consider Lasix depending on the response to fluid boluses. Urine output is extremely low. And again his renal functioning is getting worse. Patient remains on propofol at 50 mcg/kg/min he is also on norepinephrine at 0.03 mcg/kg/min, patient is receiving Glucerna 1.5/enteral feeding, patient remains on Lovenox 80 mg SQ twice daily, he is also on Zosyn and Flagyl. Chest x-ray continues to show bilateral infiltrates. Improved compared to his initial chest x-ray but nonetheless considered to be significant airspace disease bilaterally. Microbiology from the bronchial washing/lavage, showed mostly C andida, Gram stains and cultures from previous sputum from 09/08/2023 showed E. coli Staph aureus and Streptococcus agalactiae Patient was evaluated today on 09/22/2023, remains in the ICU, intubated and mechanically ventilated. He is on propofol 25 mcg/kg/min, Levophed 0.09 mcg/kg/min, and .9 NS IVF at 10cc/h patient is on assist-control rate of 24 tidal volume 450 FiO2 50% and PEEP of 10. ABG shows pH 7.24 pCO2 42 and pO2 of 97. Patient exhibits normal anion gap metabolic acidosis. Sodium 145, potassium 4.4, chloride 119, CO2 16, BUN 46, creatinine 2.98, glucose 178, and albumin 1.7. He received Sodium bicarb orally, 1amp IVP bicarb, and 80 mg Lasix as per nephrology's recommendation due to patient's poor urine output despite fluids and Lasix. Renal ultrasound showed no hydronephrosis and a left renal cyst. X-ray shows worsening bibasilar infiltrates. Bronchial washings showed Lisa albicans. He is on Zosyn 25ml/hr. Patient was evaluated today on 09/23/2023, remains in ICU, intubated and mechanically ventilated. He is on propofol 50 mcg/kg/min, Levophed 0.06 mcg/kg/min, and 0.9 normal saline IV fluids at 10 cc/h. Patient is on assist- control rate of 24 tidal volume 450 FiO2 50% and PEEP of 10. ABG shows pH of 7.32 pCO2 of 44 and pO2 of 70. Sodium is 143, potassium 4.2, chloride 113, CO2 21, BUN 42, creatinine 3.07, glucose 164, cortisol 11.7 and TSH was 0.618. U rine output remains poor despite fluid restriction and Lasix. Nephrology has discontinued the Lasix drip of 10 mcg/h and placed the patient on 80 mg IVP twice daily. Patient was dialyzed 1L yesterday and is currently undergoing dialysis with a goal of 2.5 L and tolerating well. Patient has FMS in place. He is receiving Glucerna tube feeds at a rate of 35/h. Chest x-ray today remains unchanged shows bibasilar infiltrates with a small right pleural effusion. Patient was evaluated today on 09/24/2023, remains in ICU, intubated and mechanically ventilated. Overnight he was on propofol at a rate of 40 mcg/kg/min, Levophed 0.03 mcg/kg/min, and 0.9 normal saline at 10/h. Patient is on assist-control rate of 24, tidal volume 450, FiO2 50%, PEEP of 10. ABG shows pO2 of 78, CO2 43, pH 7.35. Sodium is 139, potassium 4.4, chloride 108, CO2 21, BUN 40, creatinine 3.11, glucose 194. Blood glucose levels have been ranging in the 200s over the last 24 hours. Urine output remains poor despite fluid restriction and Lasix 80 mg twice daily. Patient was dialyzed 2.9 L yesterday and is undergoing dialysis today with a goal of 3 L. Daily interruption of sedation was unsuccessful yesterday: Patient became asynchronous with the vent, was not arousable, and did not follow commands so SBT was not attempted. Patient has FMS in place. He is receiving Glucerna feeds at a rate of 35/hour. Chest x-ray shows bibasilar infiltrates with slight improvement. Patient has had mild low-grade fevers with a Tmax of 101.3. White count has increased to 13.4 from 9.1 yesterday. Blood culture from 09/19 shows no growth after 72 hours. Procalcitonin yesterday was 5.47. He remains on Zosyn. This morning propofol and Levophed were held for daily interruption of sedation and possible SBT today. Patient was evaluated today on 09/25/2023, remains in ICU, intubated and mechanically ventilated. He is on propofol at a rate of 40 mcg/kg/min, Levophed 0.03 mcg/kg/min, and 0.9 normal saline at 10/h. Patient is on assist control rate of 24, tidal volume 450, FiO2 50%, PEEP of 10. ABG shows PaO2 91, CO2 44, pH 7.4. Sodium is 136, potassium 3.8 which has been repleted, chloride 105, CO2 25, BUN 37, creatinine 2.94, glucose 161. Urine output remains poor despite fluid restriction and Lasix 80 mg twice daily. Patient was dialyzed 3 L yesterday and is undergoing dialysis today. Daily interruption of sedation was unsuccessful yesterday. Patient was not opening his eyes or moving his extremi ties, unable to follow commands, and asynchronous with the vent, so SBT was not attempted. Patient has FMS in place. He is receiving Glucerna feeds at a rate of 35 an hour. Chest x-ray shows worsening bibasilar consolidations. Patient had low-grade fever of 99.7. White count has decreased from 13.4 yesterday to 10.8 today. Blood culture, urine culture, and sputum culture have all been sent to the lab. Daily interruption of sedation & SBT as tolerated today. Attempts to contact family regarding possible trach and PEG are still ongoing due to patient's multiple unsuccessful attempts to wean off the ventilator. Patient was evaluated today on 09/26/2023, remains in ICU, intubated and mec hanically ventilated. Propofol & Levophed have been held since yesterday at 1pm. He is on 0.9NS at KVO. Patient is on assist control rate of 24, tidal volume 450, FiO2 50%, PEEP of 10. ABG shows PaO2 71, CO2 41, pH 7.48. Sodium is 133, potassium 4.1, chloride 99, CO2 28, BUN 35, creatinine 2.76, glucose 187. Urine output remains poor despite fluid restriction and Lasix 80 mg twice daily. Patient was dialyzed 3 L yesterday. Despite being off sedation, patient remains obtunded. He only responds mildly to sternal rubs Patient has FMS in place. Overnight at about 2:40am, the patient developed bright red liquid stool, BP was 118/49 with a map of 67 and a heart rate of 86. Hemoglobin was 8.3. As per primary team. OG was changed to LIS and hemoglobin was repeated. Lovenox & Glucerna tube feeds was held due to scheduled trach & PEG today. Hemoglobin this morning was 7.7. He received 1 unit and 20mg Ddavp given to optimize him for surgery today. White count is 11.4 today. Urine culture showed growth of yeasts and Eraxis was started as per ID's recommendations. Patient was evaluated today on 09/08/2023, remains in ICU, status post trach and PEG yesterday. Tracheostomy tube is leaking but NG tube looks clean dry and intact. Levophed is running at 9.7 mcg/min and 0.9 normal saline at 10/h. Patient is on assist-control rate of 24 tidal volume 450 FiO2 60% PEEP of 10. ABG shows pO2 from 28 pCO2 45 and pH 7.34. Sodium 134, potassium 4.5, chloride 101, CO2 21, BUN 29, creatinine 2.47, and glucose 165. Urine output remains poor despite fluid restriction and Lasix 80 mg twice daily. Patient will be dialyzed today with a goal of 1 L. Patient has a FMS in place. Overnight the patient has had consistently bloody stools and put out about 900 overnight. Tube feeds are being held due to GI bleeding. Surgery recommends RBC tagged study. Hemoglobin was 7.5 this morning and he received his fifth unit of blood. White count is 20 today. Urine culture shows growth of yeasts. Patient remains on Eraxis and Zosyn. Objective - Vital Signs Vital signs: Vital Signs Temp 99 F 09/27/23 10:54 Pulse 100 09/27/23 11:00 Resp 33 H 09/27/23 11:00 BP 124/46 09/27/23 10:54 Pulse Ox 97 09/27/23 11:00 FiO2 60 09/27/23 08:27 Intake & Output 09/26/23 09/27/23 09/27/23 18:59 06:59 18:59 Intake Total 2412.352 521.648 904.853 Output Total 2960 2834 0 Balance -547.648 -2312.352 904.853 Weight 96.8 kg Intake: IV 343 269 152 0.9 sodium chloride 110 130 40 Piperacillin-Tazobactam 3 200 100 100 .375 gm In Sodium Chloride 0.9% 100 ml @ 25 mls/hr IVPB Q8HR [facility] Rx# :[id number] Pressure Bag 33 39 12 Intake, IV Titration 151.352 252.648 87.853 Amount Anidulafungin 100 mg In 100 Sodium Chloride 0.9% 100 ml @ 84 mls/hr IVPB DAILY [facility] Rx#:[id number] Desmopressin Acetate 20 50 mcg In Sodium Chloride 0. 9% 50 ml @ 200 mls/hr IVPB ONCE ONE Rx#: [id number] Norepinephrine 4 mg In 1.352 252.648 35 Sodium Chloride 0.9% 250 ml @ 0.03 MCG/KG/MIN 11. 064 mls/hr IV .[id number] [facility] Rx#:[id number] Norepinephrine 8 mg In 52.853 Sodium Chloride 0.9% 250 ml @ 0.1 MCG/KG/MIN 18. 731 mls/hr IV .[id number] [facility] Rx#:[id number] Blood Product 878 585 Rc As-1 Unit 310 [id number] Rc As-1 Unit 310 [id number] Rc Pheresis As-3 Unit 288 [id number] Rc Pheresis As-3 Unit 275 [id number] Rc Pheresis As-3 Unit 280 [id number] Hemodialysis 850 Other 190 80 Rc As-1 Unit 50 [id number] Rc As-1 Unit 50 [id number] Rc Pheresis As-3 Unit 50 [id number] Rc Pheresis As-3 Unit 50 [id number] Output: Urine 10 34 0 Stool 1000 2800 Hemodialysis 1400 Hemodialysis Net Amount 550 Other: Voiding Method Indwelling Catheter Indwelling Catheter ABP, PAP, CO, CI - Last Documented Arterial Blood Pressure 123/47 - Exam GENERAL EXAM: 67-year-old white male with tracheostomy & PEG tube, not in distress, generally edematous in all 4 extremities HEAD: Normocephalic and atraumatic EYES: Within normal NOSE: Clear with pink turbinates. THROAT: No erythema or exudates. Dry mucous membranes. NECK: No masses, no JVD. L Subclavian central line is noted. CHEST: No chest wall deformity. LUNGS: Good breath sound bilaterally mostly diminished at the bases no crackles rhonchi or wheezes CVS: S1 and S2 normal with no soft systolic murmur, regular rhythm. No extra heart sounds ABDOMEN: Abdomen flat, diminished bowel sounds, no hepatosplenomegaly, no guarding or rigidity. SKIN: No rashes CENTRAL NERVOUS SYSTEM: Could not assess patient is intubated mechanically ventilated Theatric: Could not assess EXTREMITIES: no clubbing, no cyanosis, trace bipedal edema. - Allied health notes Allied Health Notes Comment(s): Lines: Left radial art line placed 712 Left subclavian triple-lumen cath placed 7-12 Left forearm PIV placed 714 Right femoral dialysis cath placed 710 - Labs CBC & Chem 7: 09/27/23 05:11 09/27/23 04:15 Labs: Abnormal Lab Results - Last 24 Hours (Table) 09/26/23 09/26/23 09/26/23 Range/Units 04:32 11:30 11:31 WBC 12.4 H (3.8-10.6) k/uL RBC 2.45 L (4.30-5.90) m/uL Hgb 7.3 L (13.0-17.5) gm/dL Hct 22.9 L (39.0-53.0) % ABG pH (7.35-7.45) ABG pO2 (83-108) mmHg ABG Total CO2 (19-24) mmol/L ABG O2 Saturation (94-97) % Sodium (137-145) mmol/L Carbon Dioxide (22-30) mmol/L BUN (9-20) mg/dL Creatinine (0.66-1.25) mg/dL Glucose (74-99) mg/dL POC Glucose (mg/dL) 182 H (70-110) mg/dL Calcium (8.4-10.2) mg/dL Alkaline Phosphatase (38-126) U/L Total Protein (6.3-8.2) g/dL Albumin (3.5-5.0) g/dL Crossmatch See Detail 09/26/23 09/26/23 09/26/23 Range/Units 16:00 17:55 17:58 WBC 19.0 H 18.4 H (3.8-10.6) k/uL RBC 3.31 L 3.20 L (4.30-5.90) m/uL Hgb 9.8 L D 9.3 L (13.0-17.5) gm/dL Hct 29.9 L 29.0 L (39.0-53.0) % ABG pH (7.35-7.45) ABG pO2 (83-108) mmHg ABG Total CO2 (19-24) mmol/L ABG O2 Saturation (94-97) % Sodium (137-145) mmol/L Carbon Dioxide (22-30) mmol/L BUN (9-20) mg/dL Creatinine (0.66-1.25) mg/dL Glucose (74-99) mg/dL POC Glucose (mg/dL) 159 H (70-110) mg/dL Calcium (8.4-10.2) mg/dL Alkaline Phosphatase (38-126) U/L Total Protein (6.3-8.2) g/dL Albumin (3.5-5.0) g/dL Crossmatch 09/26/23 09/27/23 09/27/23 Range/Units 21:18 00:02 04:15 WBC (3.8-10.6) k/uL RBC (4.30-5.90) m/uL Hgb (13.0-17.5) gm/dL Hct (39.0-53.0) % ABG pH (7.35-7.45) ABG pO2 (83-108) mmHg ABG Total CO2 (19-24) mmol/L ABG O2 Saturation (94-97) % Sodium 134 L (137-145) mmol/L Carbon Dioxide 21 L (22-30) mmol/L BUN 29 H (9-20) mg/dL Creatinine 2.47 H (0.66-1.25) mg/dL Glucose 165 H (74-99) mg/dL POC Glucose (mg/dL) 154 H 153 H (70-110) mg/dL Calcium 7.4 L (8.4-10.2) mg/dL Alkaline Phosphatase 184 H (38-126) U/L Total Protein 4.2 L (6.3-8.2) g/dL Albumin 1.8 L (3.5-5.0) g/dL Crossmatch 09/27/23 09/27/23 09/27/23 Range/Units 04:18 05:11 05:43 WBC 20.0 H (3.8-10.6) k/uL RBC 2.60 L (4.30-5.90) m/uL Hgb 7.5 L D (13.0-17.5) gm/dL Hct 23.6 L (39.0-53.0) % ABG pH 7.34 L (7.35-7.45) ABG pO2 128 H (83-108) mmHg ABG Total CO2 26 H (19-24) mmol/L ABG O2 Saturation 99.1 H (94-97) % Sodium (137-145) mmol/L Carbon Dioxide (22-30) mmol/L BUN (9-20) mg/dL Creatinine (0.66-1.25) mg/dL Glucose (74-99) mg/dL POC Glucose (mg/dL) 140 H (70-110) mg/dL Calcium (8.4-10.2) mg/dL Alkaline Phosphatase (38-126) U/L Total Protein (6.3-8.2) g/dL Albumin (3.5-5.0) g/dL Crossmatch Microbiology - Last 24 Hours (Table) 07/18/24 17:40 Catheter Tip Culture - Final Catheter Tip Lisa albicans 09/24/23 11:10 Blood Culture - Preliminary Blood 09/24/23 10:58 Blood Culture - Preliminary Blood 09/19/23 15:30 Fungal Culture - Preliminary Bronchial Washings - Random Lisa albicans 09/24/23 12:32 Urine Culture - Final Urine,Voided Lisa albicans 09/24/23 10:00 Gram Stain - Final Sputum Sputum Culture - Final Lisa albicans Assessment and Plan Assessment: Acute hypoxic respiratory failure secondary to aspiration pneumonia s/p trach on 09/25 Aspiration PNA Left lower lobe sputum culture(E.coli, MSSA, Group B Strep) Hypotension due to suspected septic shock from pneumonia Acute kidney injury Malnutrition with severe hypoalbuminemia s/p PEG tube 09/26 Anasarca secondary to hypoalbuminemia Candiduria Unspecified bleeding source Hg 7.5 s/p 3 units RBCs Normal anion gap metabolic acidosis resolved Acute DKA resolved Hx of Type 2 DM Hx of B/L great toe amputations HX of Hyperlipidemia Hx of CAD with previous stent Hx of seizure disorder Plan Continue ventilator support Continue IVF at 10/hr & 80mg IVP BID as per nephro's recommendations HD today goal 1L as tolerated RBC tagged study Continue GI and DVT prophylaxis Continue Levemir insulin to 20 units for better glucose control Continue sliding scale NovoLog insulin as per protocol Continue Eraxis 100mg q24hrs Head CT to r/o brain bleed Patient is critically ill, prognosis is guarded Patient is critically ill and critical care time is over 30 Will continue to follow Time with Patient: Greater than 30
[2023-09-27 12:06] LABS: Glucose,Whole Blood 196 mg/dL (70-110)
[2023-09-27 13:10] LABS: HCT 30.3 % (39.0-53.0); Hypochromasia Moderate; MCHC 32.3 g/dL (31.0-37.0); MCV 89.7 fL (80.0-100.0); Platelet Count 398 k/uL (150-450); Poikilocytosis Slight; RBC 3.38 m/uL (4.30-5.90); RDW 15.1 % (11.5-15.5); WBC 28.4 k/uL (3.8-10.6)
[2023-09-27 13:26] LABS: HGB 9.8 gm/dL (13.0-17.5)
--- NOTE | 2023-09-27 14:18 | P.PN ---
Subjective Progress Note Date: 09/27/23 Principal diagnosis: Reason for follow-up is fever Patient is a 67-year-old male with a past medical history significant for coronary disease diabetes mellitus NE seizure disorder history of diabetic foot infection status post bilateral big toe amputation presenting to the hospital with unresponsiveness patient was initially hypothermic subsequently started spiking fever initial workup with a chest x-ray and urine was negative.Patient is status post tracheostomy on 09/26/2023 On today's evaluation that is 09/27/2023, Patient did have a fever of 100.1 F at noon patient remains to be debated through the trach requiring low-dose pressor support FiO2 is down to 60% no significant purulent secretions on the ET or any change reported patient still have bleeding per rectum overall amount has decreased in intensity. Patient white count is up to 28.4 Objective - Vital Signs Vital signs: Vital Signs Temp 99 F 09/27/23 10:54 Pulse 100 09/27/23 11:00 Resp 33 H 09/27/23 11:00 BP 124/46 09/27/23 10:54 Pulse Ox 97 09/27/23 11:00 FiO2 60 09/27/23 08:27 Intake & Output 09/26/23 09/27/23 09/27/23 18:59 06:59 18:59 Intake Total 2412.352 521.648 904.853 Output Total 2960 2834 0 Balance -547.648 -2312.352 904.853 Weight 96.8 kg Intake: IV 343 269 152 0.9 sodium chloride 110 130 40 Piperacillin-Tazobactam 3 200 100 100 .375 gm In Sodium Chloride 0.9% 100 ml @ 25 mls/hr IVPB Q8HR [facility] Rx# :[id number] Pressure Bag 33 39 12 Intake, IV Titration 151.352 252.648 87.853 Amount Anidulafungin 100 mg In 100 Sodium Chloride 0.9% 100 ml @ 84 mls/hr IVPB DAILY [facility] Rx#:[id number] Desmopressin Acetate 20 50 mcg In Sodium Chloride 0. 9% 50 ml @ 200 mls/hr IVPB ONCE ONE Rx#: [id number] Norepinephrine 4 mg In 1.352 252.648 35 Sodium Chloride 0.9% 250 ml @ 0.03 MCG/KG/MIN 11. 064 mls/hr IV .[id number] [facility] Rx#:[id number] Norepinephrine 8 mg In 52.853 Sodium Chloride 0.9% 250 ml @ 0.1 MCG/KG/MIN 18. 731 mls/hr IV .[id number] [facility] Rx#:[id number] Blood Product 878 585 Rc As-1 Unit 310 [id number] Rc As-1 Unit 310 [id number] Rc Pheresis As-3 Unit 288 [id number] Rc Pheresis As-3 Unit 275 [id number] Rc Pheresis As-3 Unit 280 [id number] Hemodialysis 850 Other 190 80 Rc As-1 Unit 50 [id number] Rc As-1 Unit 50 [id number] Rc Pheresis As-3 Unit 50 [id number] Rc Pheresis As-3 Unit 50 [id number] Output: Urine 10 34 0 Stool 1000 2800 Hemodialysis 1400 Hemodialysis Net Amount 550 Other: Voiding Method Indwelling Catheter Indwelling Catheter ABP, PAP, CO, CI - Last Documented Arterial Blood Pressure 123/47 - Exam GENERAL DESCRIPTION: An elderly male intubated on the vent through the trach RESPIRATORY SYSTEM: Unlabored breathing , decreased breath sounds at bases HEART: S1 S2 regular rate and rhythm , ABDOMEN: Soft , no tenderness EXTREMITIES: No edema feet - Labs CBC & Chem 7: 09/27/23 13:00 09/27/23 04:15 Labs: Abnormal Lab Results - Last 24 Hours (Table) 09/26/23 09/26/23 09/26/23 Range/Units 04:32 16:00 17:55 WBC 19.0 H 18.4 H (3.8-10.6) k/uL RBC 3.31 L 3.20 L (4.30-5.90) m/uL Hgb 9.8 L D 9.3 L (13.0-17.5) gm/dL Hct 29.9 L 29.0 L (39.0-53.0) % ABG pH (7.35-7.45) ABG pO2 (83-108) mmHg ABG Total CO2 (19-24) mmol/L ABG O2 Saturation (94-97) % Sodium (137-145) mmol/L Carbon Dioxide (22-30) mmol/L BUN (9-20) mg/dL Creatinine (0.66-1.25) mg/dL Glucose (74-99) mg/dL POC Glucose (mg/dL) (70-110) mg/dL Calcium (8.4-10.2) mg/dL Alkaline Phosphatase (38-126) U/L Total Protein (6.3-8.2) g/dL Albumin (3.5-5.0) g/dL Crossmatch See Detail 09/26/23 09/26/23 09/27/23 Range/Units 17:58 21:18 00:02 WBC (3.8-10.6) k/uL RBC (4.30-5.90) m/uL Hgb (13.0-17.5) gm/dL Hct (39.0-53.0) % ABG pH (7.35-7.45) ABG pO2 (83-108) mmHg ABG Total CO2 (19-24) mmol/L ABG O2 Saturation (94-97) % Sodium (137-145) mmol/L Carbon Dioxide (22-30) mmol/L BUN (9-20) mg/dL Creatinine (0.66-1.25) mg/dL Glucose (74-99) mg/dL POC Glucose (mg/dL) 159 H 154 H 153 H (70-110) mg/dL Calcium (8.4-10.2) mg/dL Alkaline Phosphatase (38-126) U/L Total Protein (6.3-8.2) g/dL Albumin (3.5-5.0) g/dL Crossmatch 09/27/23 09/27/23 09/27/23 Range/Units 04:15 04:18 05:11 WBC 20.0 H (3.8-10.6) k/uL RBC 2.60 L (4.30-5.90) m/uL Hgb 7.5 L D (13.0-17.5) gm/dL Hct 23.6 L (39.0-53.0) % ABG pH (7.35-7.45) ABG pO2 (83-108) mmHg ABG Total CO2 (19-24) mmol/L ABG O2 Saturation (94-97) % Sodium 134 L (137-145) mmol/L Carbon Dioxide 21 L (22-30) mmol/L BUN 29 H (9-20) mg/dL Creatinine 2.47 H (0.66-1.25) mg/dL Glucose 165 H (74-99) mg/dL POC Glucose (mg/dL) 140 H (70-110) mg/dL Calcium 7.4 L (8.4-10.2) mg/dL Alkaline Phosphatase 184 H (38-126) U/L Total Protein 4.2 L (6.3-8.2) g/dL Albumin 1.8 L (3.5-5.0) g/dL Crossmatch 09/27/23 Range/Units 05:43 WBC (3.8-10.6) k/uL RBC (4.30-5.90) m/uL Hgb (13.0-17.5) gm/dL Hct (39.0-53.0) % ABG pH 7.34 L (7.35-7.45) ABG pO2 128 H (83-108) mmHg ABG Total CO2 26 H (19-24) mmol/L ABG O2 Saturation 99.1 H (94-97) % Sodium (137-145) mmol/L Carbon Dioxide (22-30) mmol/L BUN (9-20) mg/dL Creatinine (0.66-1.25) mg/dL Glucose (74-99) mg/dL POC Glucose (mg/dL) (70-110) mg/dL Calcium (8.4-10.2) mg/dL Alkaline Phosphatase (38-126) U/L Total Protein (6.3-8.2) g/dL Albumin (3.5-5.0) g/dL Crossmatch Microbiology - Last 24 Hours (Table) 09/25/23 17:40 Catheter Tip Culture - Final Catheter Tip Lisa albicans 09/24/23 11:10 Blood Culture - Preliminary Blood 09/24/23 10:58 Blood Culture - Preliminary Blood 09/19/23 15:30 Fungal Culture - Preliminary Bronchial Washings - Random Lisa albicans 09/24/23 12:32 Urine Culture - Final Urine,Voided Lisa albicans 09/24/23 10:00 Gram Stain - Final Sputum Sputum Culture - Final Lisa albicans Assessment and Plan (1) Fever Current Visit: Yes Status: Acute Code(s): R50.9 - FEVER, UNSPECIFIED SNOMED Code(s): 685228436 (2) Pneumonia Current Visit: Yes Status: Acute Code(s): J18.9 - PNEUMONIA, UNSPECIFIED ORGANISM SNOMED Code(s): 396096185 (3) Diarrhea Current Visit: Yes Status: Acute Code(s): R19.7 - DIARRHEA, UNSPECIFIED SNOMED Code(s): 74698916 Plan: 1patient with an episode of less responsiveness and concern for possible aspiration but the patient has been transferred back to the ICU patient is status post bronchoscopy and cultures are currently growing Lisa albicans 2patient did have a new fever source likely catheter associated UTI with urine growing yeast, the patient is on amiodarone and cannot use Diflucan, Eraxis has been added by pulmonary 3patient also have developed bleeding per rectum being monitored by surgery stool for C. difficile requested and currently pending collection, still have elevated white count that could be reactive to the GI bleed and need to be monitored closely Dictation was produced using [employer] dictation software. please excuse any grammatical, word or spelling errors. Time with Patient: Less than 30
--- NOTE | 2023-09-27 14:53 | P.PN ---
Subjective Progress Note Date: 09/27/23 Interval History: 67-year-old male with past medical history significant for diabetes mellitus, p rior toe amputations, hyperlipidemia, coronary artery disease with previous stents, and seizure disorder who presented to the ED on 09/06 with DKA unresponsive intubated and mechanically ventilated. Patient was admitted to the ICU for DKA, respiratory failure, and MAIRANO. He remained in the ICU until 09/12 when he was transferred to the floors. On 09/18 he was scheduled for colonoscopy as well as PEG placement on 09/21. On 09/18 his O2 requirement increased from 2-6L NC. A Team was called and he was reintubated and transferred to the ICU. Patient was evaluated today on 09/18/2023, patient is about the same, continues to have some discomfort in his back and in his rectal area, supposed to have colonoscopy tomorrow. Eliquis remains on hold. Patient has no active pulmonary issues. WBC count is 8.6 hemoglobin 10.2 electrolytes are normal renal profile is normal The patient was seen today September 19, 2023 in follow-up on the selective care unit. Today he is found to be weak and obtunded. He is requiring more oxygen currently at 6 L high flow nasal cannula. A rapid response team was called on him. Chest x-ray and ABGs reviewed. He will be transferred to the intensive care unit. Serial blood gases on 100% FiO2 revealed a P O2 of 66, pCO2 of 49 and a pH of 7.32. White count 9.9. Hemoglobin 11.3. Platelets 233. Sodium 143. Potassium 4.5. Bicarb 26. BUN 17. Creatinine 0.87. Glucose 151. The patient has been having concerns of rectal pain and possible rectal mass and the plan was for colonoscopy. However the patient was having ongoing issues with difficulty in swallowing and was being considered for PEG tube placement. This was prior to his change in clinical status. X-ray did reveal a right lower lobe infiltrate with minimal right pleural effusion. Patient was evaluated today on 09/20/2023, patient developed a worsening pulmonary status yesterday, required transfer to the ICU intubation mechanical ventilation. I saw the patient yesterday, he underwent bronchoscopy, lines were placed and the patient, and he was kept on mechanical ventilation overnight. Patient is now on assist-control rate of 24 tidal volume 450 FiO2 was 80% earlier but is now 50%, and PEEP of 10 ABG showed a pO2 of 92 pCO2 47 pH of 7.30 his urine output is 5 to 20 cc/h, however his CVP is low and the patient will require more fluid boluses if no improvement after fluid boluses, then we will give the patient Lasix. In the meantime the patient is requiring propofol at 35 mg/kg/min norepinephrine at 0.06 mg/kg/min IV fluid running at 100 cc/h and the patient is also receiving vital HP at 10 cc/h antibiotics rosario he is receiving Flagyl and Zosyn. Chest x-ray continues to show bilateral infiltrates consistent with most likely aspiration pneumonia. Patient was seen by infectious disease and he is now on Flagyl and ZosynWBC count today is 13 hemoglobin 9.3 basic metabolic profile is normal renal profile showed a BUN of 29 creatinine 1.45 Patient was evaluated today on 09/21/2023, remains in the ICU, intubated and mechanically ventilated. Patient is on assist-control rate of 24 tidal volume 450 FiO2 50% and PEEP of 10 ABG showed a pO2 of 79 pCO2 43 pH of 7.26, apparently the patient developed some metabolic acidosis associated with acute kidney injury, and I have recommended 1 amp of bicarb to be given and sodium bicarb to be given orally and I also recommended nephrology evaluation on this patient as his renal status seems to be getting worse and the patient is having less and less urine output. CVP is around 7 patient will receive more fluids today, may consider Lasix depending on the response to fluid boluses. Urine output is extremely low. And again his renal functioning is getting worse. Patient remains on propofol at 50 mcg/kg/min he is also on norepinephrine at 0.03 mcg/kg/min, patient is receiving Glucerna 1.5/enteral feeding, patient remains on Lovenox 80 mg SQ twice daily, he is also on Zosyn and Flagyl. Chest x-ray continues to show bilateral infiltrates. Improved compared to his initial chest x-ray but nonetheless considered to be significant airspace disease bilaterally. Microbiology from the bronchial washing/lavage, showed mostly Can dida, Gram stains and cultures from previous sputum from 09/08/2023 showed E. coli Staph aureus and Streptococcus agalactiae Patient was evaluated today on 09/22/2023, remains in the ICU, intubated and mechanically ventilated. He is on propofol 25 mcg/kg/min, Levophed 0.09 mcg/kg/min, and .9 NS IVF at 10cc/h patient is on assist-control rate of 24 tidal volume 450 FiO2 50% and PEEP of 10. ABG shows pH 7.24 pCO2 42 and pO2 of 97. Patient exhibits normal anion gap metabolic acidosis. Sodium 145, potassium 4.4, chloride 119, CO2 16, BUN 46, creatinine 2.98, glucose 178, and albumin 1.7. He received Sodium bicarb orally, 1amp IVP bicarb, and 80 mg Lasix as per nephrology's recommendation due to patient's poor urine output despite fluids and Lasix. Renal ultrasound showed no hydronephrosis and a left renal cyst. X-ray shows worsening bibasilar infiltrates. Bronchial washings showed Lisa albicans. He is on Zosyn 25ml/hr. Patient was evaluated today on 09/23/2023, remains in ICU, intubated and mechanically ventilated. He is on propofol 50 mcg/kg/min, Levophed 0.06 mcg/kg/min, and 0.9 normal saline IV fluids at 10 cc/h. Patient is on assist- control rate of 24 tidal volume 450 FiO2 50% and PEEP of 10. ABG shows pH of 7.32 pCO2 of 44 and pO2 of 70. Sodium is 143, potassium 4.2, chloride 113, CO2 21, BUN 42, creatinine 3.07, glucose 164, cortisol 11.7 and TSH was 0.618. Uri ne output remains poor despite fluid restriction and Lasix. Nephrology has discontinued the Lasix drip of 10 mcg/h and placed the patient on 80 mg IVP twice daily. Patient was dialyzed 1L yesterday and is currently undergoing dialysis with a goal of 2.5 L and tolerating well. Patient has FMS in place. He is receiving Glucerna tube feeds at a rate of 35/h. Chest x-ray today remains unchanged shows bibasilar infiltrates with a small right pleural effusion. Patient was evaluated today on 09/24/2023, remains in ICU, intubated and mechanically ventilated. Overnight he was on propofol at a rate of 40 mcg/kg/min, Levophed 0.03 mcg/kg/min, and 0.9 normal saline at 10/h. Patient is on assist-control rate of 24, tidal volume 450, FiO2 50%, PEEP of 10. ABG shows pO2 of 78, CO2 43, pH 7.35. Sodium is 139, potassium 4.4, chloride 108, CO2 21, BUN 40, creatinine 3.11, glucose 194. Blood glucose levels have been ranging in the 200s over the last 24 hours. Urine output remains poor despite fluid restriction and Lasix 80 mg twice daily. Patient was dialyzed 2.9 L yesterday and is undergoing dialysis today with a goal of 3 L. Daily interruption of sedation was unsuccessful yesterday: Patient became asynchronous with the vent, was not arousable, and did not follow commands so SBT was not attempted. Patient has FMS in place. He is receiving Glucerna feeds at a rate of 35/hour. Chest x-ray shows bibasilar infiltrates with slight improvement. Patient has had mild low-grade fevers with a Tmax of 101.3. White count has increased to 13.4 from 9.1 yesterday. Blood culture from 09/19 shows no growth after 72 hours. Procalcitonin yesterday was 5.47. He remains on Zosyn. This morning propofol and Levophed were held for daily interruption of sedation and possible SBT today. Patient was evaluated today on 09/25/2023, remains in ICU, intubated and mechanically ventilated. He is on propofol at a rate of 40 mcg/kg/min, Levophed 0.03 mcg/kg/min, and 0.9 normal saline at 10/h. Patient is on assist control rate of 24, tidal volume 450, FiO2 50%, PEEP of 10. ABG shows PaO2 91, CO2 44, pH 7.4. Sodium is 136, potassium 3.8 which has been repleted, chloride 105, CO2 25, BUN 37, creatinine 2.94, glucose 161. Urine output remains poor despite fluid restriction and Lasix 80 mg twice daily. Patient was dialyzed 3 L yesterday and is undergoing dialysis today. Daily interruption of sedation was unsuccessful yesterday. Patient was not opening his eyes or moving his extremities, unable to follow commands, and asynchronous with the vent, so SBT was not attempted. Patient has FMS in place. He is receiving Glucerna feeds at a rate of 35 an hour. Chest x-ray shows worsening bibasilar consolidations. Patient had low-grade fever of 99.7. White count has decreased from 13.4 yesterday to 10.8 today. Blood culture, urine culture, and sputum culture have all been sent to the lab. Daily interruption of sedation & SBT as tolerated today. Attempts to contact family regarding possible trach and PEG are still ongoing due to patient's multiple unsuccessful attempts to wean off the ventilator. Patient was evaluated today on 09/26/2023, remains in ICU, intubated and mecha nically ventilated. Propofol & Levophed have been held since yesterday at 1pm. He is on 0.9NS at KVO. Patient is on assist control rate of 24, tidal volume 450, FiO2 50%, PEEP of 10. ABG shows PaO2 71, CO2 41, pH 7.48. Sodium is 133, potassium 4.1, chloride 99, CO2 28, BUN 35, creatinine 2.76, glucose 187. Urine output remains poor despite fluid restriction and Lasix 80 mg twice daily. Patient was dialyzed 3 L yesterday. Despite being off sedation, patient remains obtunded. He only responds mildly to sternal rubs Patient has FMS in place. Overnight at about 2:40am, the patient developed bright red liquid stool, BP was 118/49 with a map of 67 and a heart rate of 86. Hemoglobin was 8.3. As per primary team. OG was changed to LIS and hemoglobin was repeated. Lovenox & Glucerna tube feeds was held due to scheduled trach & PEG today. Hemoglobin this morning was 7.7. He received 1 unit and 20mg Ddavp given to optimize him for surgery today. White count is 11.4 today. Urine culture showed growth of yeasts and Eraxis was started as per ID's recommendations. Patient was evaluated today on 09/08/2023, remains in ICU, status post trach and PEG yesterday. Tracheostomy tube is leaking but NG tube looks clean dry and intact. Levophed is running at 9.7 mcg/min and 0.9 normal saline at 10/h. Patient is on assist-control rate of 24 tidal volume 450 FiO2 60% PEEP of 10. ABG shows pO2 from 28 pCO2 45 and pH 7.34. Sodium 134, potassium 4.5, chloride 101, CO2 21, BUN 29, creatinine 2.47, and glucose 165. Urine output remains poor despite fluid restriction and Lasix 80 mg twice daily. Patient will be dialyzed today with a goal of 1 L. Patient has a FMS in place. Overnight the patient has had consistently bloody stools and put out about 900 overnight. Tube feeds are being held due to GI bleeding. Surgery recommends RBC tagged study. Hemoglobin was 7.5 this morning and he received his fifth unit of blood. White count is 20 today. Urine culture shows growth of yeasts. Patient remains on Eraxis and Zosyn. 09/26--patient was seen and examined today. Patient on mechanical ventilation through tracheostomy tube. Has a PEG tube in place. Rectal tube in place with light red blood. Currently on Levophed. Was undergoing hemodialysis at the time of examination. Laboratory of system as patient is sedated and intubated. REVIEW OF SYSTEMS: Limited, patient sedated and intubated. PHYSICAL EXAMINATION: GENERAL: The patient is alert and oriented x0, intubated. HEENT: Pupils are round and equally reacting to light. EOMI. No scleral icterus. No conjunctival pallor. Normocephalic, atraumatic. No pharyngeal erythema. No thyromegaly. Tracheostomy. CARDIOVASCULAR: S1 and S2 present. No murmurs, rubs, or gallops. PULMONARY: Chest is clear to auscultation, no wheezing or crackles. ABDOMEN: Soft, nontender, nondistended, normoactive bowel sounds. No palpable organomegaly. PEG tube in place. MUSCULOSKELETAL: No joint swelling or deformity. EXTREMITIES: No cyanosis, clubbing,++edema NEUROLOGICAL: Sedated, intubated. SKIN: No rashes. Assessment and plan Acute hypoxic respiratory failure: Aspiration pneumonia: Status post tracheostomy and PEG tube placement 09/25 Septic shock Acute kidney injury: Currently on hemodialysis Volume overload: Severe PCM Anasarca secondary to hypoalbuminemia Continue urea Lower GI bleed status post multiple PRBC transfusion Rectal and sigmoid colon thickening on CT: DKA: Resolved History of bilateral great toe amputation History of lipidemia History of CAD and previous stent History of seizure disorder Plan: Patient is currently intubated, on mechanical ventilation through tracheostomy, in ICU. Pulmonary on board. On Levophed. Currently on Eraxis and zosyn, infectious disease following. Receiving hemodialysis per nephrology. Diuresis with IV Lasix. Continue Levemir 20 units, sliding scale. Tube feeds through tracheostomy tube. Monitor H&H, transfuse for hemoglobin less than 7.0. General surgery on board, plan for colonoscopy on Friday for further evaluation of rectal bleeding while thickening of rectum and sigmoid colon on CT DVT and GI prophylaxis Dictation was produced using [employer] dictation software. please excuse any grammatical, word or spelling errors. Objective - Vital Signs Vital signs: Vital Signs Temp 100.1 F H 09/27/23 12:00 Pulse 102 H 09/27/23 14:15 Resp 36 H 09/27/23 14:15 BP 124/46 09/27/23 10:54 Pulse Ox 100 09/27/23 14:15 FiO2 60 09/27/23 12:27 Intake & Output 09/26/23 09/27/23 09/27/23 18:59 06:59 18:59 Intake Total 2412.352 521.648 992.553 Output Total 2960 2834 0 Balance -547.648 -2312.352 992.553 Weight 96.8 kg Intake: IV 343 269 191 0.9 sodium chloride 110 130 70 Piperacillin-Tazobactam 3 200 100 100 .375 gm In Sodium Chloride 0.9% 100 ml @ 25 mls/hr IVPB Q8HR [facility] Rx# :[id number] Pressure Bag 33 39 21 Intake, IV Titration 151.352 252.648 136.553 Amount Anidulafungin 100 mg In 100 Sodium Chloride 0.9% 100 ml @ 84 mls/hr IVPB DAILY [facility] Rx#:[id number] Desmopressin Acetate 20 50 mcg In Sodium Chloride 0. 9% 50 ml @ 200 mls/hr IVPB ONCE ONE Rx#: [id number] Norepinephrine 4 mg In 1.352 252.648 35 Sodium Chloride 0.9% 250 ml @ 0.03 MCG/KG/MIN 11. 064 mls/hr IV .[id number] [facility] Rx#:[id number] Norepinephrine 8 mg In 101.553 Sodium Chloride 0.9% 250 ml @ 0.1 MCG/KG/MIN 18. 731 mls/hr IV .[id number] [facility] Rx#:[id number] Blood Product 878 585 Rc As-1 Unit 310 [id number] Rc As-1 Unit 310 [id number] Rc Pheresis As-3 Unit 288 [id number] Rc Pheresis As-3 Unit 275 [id number] Rc Pheresis As-3 Unit 280 [id number] Hemodialysis 850 Other 190 80 Rc As-1 Unit 50 [id number] Rc As-1 Unit 50 [id number] Rc Pheresis As-3 Unit 50 [id number] Rc Pheresis As-3 Unit 50 [id number] Output: Urine 10 34 0 Stool 1000 2800 Hemodialysis 1400 Hemodialysis Net Amount 550 Other: Voiding Method Indwelling Catheter Indwelling Catheter Indwelling Catheter ABP, PAP, CO, CI - Last Documented Arterial Blood Pressure 118/53 - Labs CBC & Chem 7: 09/27/23 13:00 09/27/23 04:15 Labs: Abnormal Lab Results - Last 24 Hours (Table) 09/26/23 09/26/23 09/26/23 Range/Units 04:32 16:00 17:55 WBC 19.0 H 18.4 H (3.8-10.6) k/uL RBC 3.31 L 3.20 L (4.30-5.90) m/uL Hgb 9.8 L D 9.3 L (13.0-17.5) gm/dL Hct 29.9 L 29.0 L (39.0-53.0) % ABG pH (7.35-7.45) ABG pO2 (83-108) mmHg ABG Total CO2 (19-24) mmol/L ABG O2 Saturation (94-97) % Sodium (137-145) mmol/L Carbon Dioxide (22-30) mmol/L BUN (9-20) mg/dL Creatinine (0.66-1.25) mg/dL Glucose (74-99) mg/dL POC Glucose (mg/dL) (70-110) mg/dL Calcium (8.4-10.2) mg/dL Alkaline Phosphatase (38-126) U/L Total Protein (6.3-8.2) g/dL Albumin (3.5-5.0) g/dL Crossmatch See Detail 09/26/23 09/26/23 09/27/23 Range/Units 17:58 21:18 00:02 WBC (3.8-10.6) k/uL RBC (4.30-5.90) m/uL Hgb (13.0-17.5) gm/dL Hct (39.0-53.0) % ABG pH (7.35-7.45) ABG pO2 (83-108) mmHg ABG Total CO2 (19-24) mmol/L ABG O2 Saturation (94-97) % Sodium (137-145) mmol/L Carbon Dioxide (22-30) mmol/L BUN (9-20) mg/dL Creatinine (0.66-1.25) mg/dL Glucose (74-99) mg/dL POC Glucose (mg/dL) 159 H 154 H 153 H (70-110) mg/dL Calcium (8.4-10.2) mg/dL Alkaline Phosphatase (38-126) U/L Total Protein (6.3-8.2) g/dL Albumin (3.5-5.0) g/dL Crossmatch 09/27/23 09/27/23 09/27/23 Range/Units 04:15 04:18 05:11 WBC 20.0 H (3.8-10.6) k/uL RBC 2.60 L (4.30-5.90) m/uL Hgb 7.5 L D (13.0-17.5) gm/dL Hct 23.6 L (39.0-53.0) % ABG pH (7.35-7.45) ABG pO2 (83-108) mmHg ABG Total CO2 (19-24) mmol/L ABG O2 Saturation (94-97) % Sodium 134 L (137-145) mmol/L Carbon Dioxide 21 L (22-30) mmol/L BUN 29 H (9-20) mg/dL Creatinine 2.47 H (0.66-1.25) mg/dL Glucose 165 H (74-99) mg/dL POC Glucose (mg/dL) 140 H (70-110) mg/dL Calcium 7.4 L (8.4-10.2) mg/dL Alkaline Phosphatase 184 H (38-126) U/L Total Protein 4.2 L (6.3-8.2) g/dL Albumin 1.8 L (3.5-5.0) g/dL Crossmatch 09/27/23 09/27/23 09/27/23 Range/Units 05:43 12:04 13:00 WBC 28.4 H (3.8-10.6) k/uL RBC 3.38 L (4.30-5.90) m/uL Hgb 9.8 L D (13.0-17.5) gm/dL Hct 30.3 L (39.0-53.0) % ABG pH 7.34 L (7.35-7.45) ABG pO2 128 H (83-108) mmHg ABG Total CO2 26 H (19-24) mmol/L ABG O2 Saturation 99.1 H (94-97) % Sodium (137-145) mmol/L Carbon Dioxide (22-30) mmol/L BUN (9-20) mg/dL Creatinine (0.66-1.25) mg/dL Glucose (74-99) mg/dL POC Glucose (mg/dL) 196 H (70-110) mg/dL Calcium (8.4-10.2) mg/dL Alkaline Phosphatase (38-126) U/L Total Protein (6.3-8.2) g/dL Albumin (3.5-5.0) g/dL Crossmatch Microbiology - Last 24 Hours (Table) 09/25/23 17:40 Catheter Tip Culture - Final Catheter Tip Lisa albicans 09/24/23 11:10 Blood Culture - Preliminary Blood 09/24/23 10:58 Blood Culture - Preliminary Blood 09/19/23 15:30 Fungal Culture - Preliminary Bronchial Washings - Random Lisa albicans 09/24/23 12:32 Urine Culture - Final Urine,Voided Lisa albicans
[2023-09-27 15:29] LABS: HCT 29.4 % (39.0-53.0); HGB 9.7 gm/dL (13.0-17.5); Hypochromasia Slight; MCH 29.2 pg (25.0-35.0); MCHC 32.8 g/dL (31.0-37.0); MCV 88.8 fL (80.0-100.0); Mean Platelet Volume 8.6; Platelet Count 392 k/uL (150-450); Poikilocytosis Slight; RBC 3.31 m/uL (4.30-5.90); RDW 15.3 % (11.5-15.5); WBC 28.8 k/uL (3.8-10.6)
--- NOTE | 2023-09-27 16:32 | CT ---
EXAMINATION TYPE: CT brain wo con CT DLP: 1192 mGycm, Automated exposure control for dose reduction was used. DATE OF EXAM: 09/27/2023 4:22 PM COMPARISON: 09/19/2023. CLINICAL INDICATION:Male, 67 years old with history of obtunded, ams TECHNIQUE: Brain: Axial CT images of the brain were obtained with coronal and sagittal reformats created and rev iewed. Contrast used: None. Oral contrast used: None. FINDINGS: Brain: Extra-axial spaces: No abnormal extra-axial fluid collections. Ventricular system: Dilatation in proportion to cerebral atrophy. Cerebral parenchyma: Cerebral atrophy. No acute intraparenchymal hemorrhage or mass effect. The meyer -white junction is well differentiated. Scattered hypoattenuating areas are seen within the white mat ter. Cerebellum: Unremarkable. Mass effect: No evidence of midline shift. Intracranial vasculature: Atherosclerotic calcifications of the intracranial vessels. Soft tissues: Normal. Calvarium/osseous structures: No depressed skull fracture. Paranasal sinuses and mastoid air cells: Mild scattered paranasal sinus disease. Visualized orbits: Orbital contents are intact. IMPRESSION: 1. No acute intracranial process. 2. Nonspecific white matter changes, likely secondary to chronic small vessel ischemic disease.
--- NOTE | 2023-09-27 16:50 | P.PN ---
Progress Note - Text Progress Note Date: 09/27/23 CHIEF COMPLAINT: rectal pain HISTORY OF PRESENT ILLNESS: 67-year-old male admitted to the hospital for DKA. patient is status post tracheostomy and PEG tube placement. Patient did have rectal bleeding. PHYSICAL EXAM: VITAL SIGNS: Reviewed GENERAL: no acute distress. Intubated ABDOMEN: Soft. Nondistended. ASSESSMENT: 1. Acute hypoxic respiratory failure secondary to aspiration pneumonia patient required to be reintubated on September 19, 2023 and has not been able to wean from vent 2. Severe protein calorie malnutrition 3. Wall thickening of the rectum and sigmoid colon noted on CT PLAN: -Tube feeds per regional account executive -Recommend colonoscopy on Friday with Dr. chowdhury for further evaluation of rectal bleeding and wall thickening of the rectum and sigmoid colon noted on CT
--- NOTE | 2023-09-27 18:26 | NM ---
EXAMINATION TYPE: NM GI bleeding DATE OF EXAM: 09/27/2023 CLINICAL INDICATION: Male, 67 years old with history of active gi bleed; COMPARISON: NONE Following administration of 3 ml PYP 23.5 mCi Tc 99m Sodium pertechnetate. Immediate images post inje ction were obtained up to 60 minutes 2 mm intervals.. Additional static image was performed at 2 hour s. FINDINGS: Normal tracer activity is seen in the blood pool of the abdominal aorta, common iliac arteries, femor al arteries, liver, and spleen on all of the interval images. Later images show accumulation of trace r in the urinary bladder, which is consistent with excreted tracer. No abnormal tracer uptake is pres ent outside the blood pool that would be consistent with an active GI bleed. Free technetium pertechnetate is identified collecting within the salivary glands. There is an area i n the upper abdomen of increased radiotracer that correlates with patient's stomach anatomy and corre lates with free technetium pertechnetate in the gastric mucosa. IMPRESSION: 1. Negative examination. No evidence of active gastrointestinal bleeding during the initial 1 hr obs ervation period or static image at 2 hours. 2. Free technetium with uptake seen within the stomach and the thyroid bed on special neck view.
[2023-09-27 18:34] LABS: Glucose,Whole Blood 180 mg/dL (70-110)
[2023-09-27 20:04] LABS: Glucose,Whole Blood 173 mg/dL (70-110)
[2023-09-27 22:48] LABS: Glucose,Whole Blood 154 mg/dL (70-110)
[2023-09-27 23:11] LABS: HCT 24.6 % (39.0-53.0); HGB 8.3 gm/dL (13.0-17.5); MCH 30.6 pg (25.0-35.0); MCHC 33.6 g/dL (31.0-37.0); MCV 91.1 fL (80.0-100.0); Mean Platelet Volume 9.3; Platelet Count 243 k/uL (150-450); Poikilocytosis Slight; RDW 15.5 % (11.5-15.5); WBC 17.3 k/uL (3.8-10.6)
[2023-09-27 23:39] LABS: Glucose,Whole Blood 159 mg/dL (70-110)
[2023-09-28 04:57] LABS: Glucose,Whole Blood 135 mg/dL (70-110)
[2023-09-28 05:16] LABS: Basophils % (A) 0 %; Eosinophils % (A) 0 %; HCT 22.3 % (39.0-53.0); HGB 7.4 gm/dL (13.0-17.5); Hypochromasia Slight; Lymphocytes # (A) 0.8 k/uL (1.0-4.8); Lymphocytes % (A) 6 %; MCH 29.4 pg (25.0-35.0); MCHC 33.3 g/dL (31.0-37.0); MCV 88.5 fL (80.0-100.0); Mean Platelet Volume 8.7; Monocytes # (A) 0.6 k/uL (0-1.0); Monocytes % (A) 4 %; Neutrophils # (A) 12.4 k/uL (1.3-7.7); Neutrophils % (A) 88 %; Platelet Count 270 k/uL (150-450); Poikilocytosis Slight; RBC 2.52 m/uL (4.30-5.90); RDW 15.3 % (11.5-15.5); WBC 14.1 k/uL (3.8-10.6)
[2023-09-28 05:32] LABS: ALT 10 U/L (4-49); AST 23 U/L (17-59); Albumin 1.8 g/dL (3.5-5.0); Alkaline Phosphatase 142 U/L (38-126); Anion Gap 8 mmol/L; Blood Urea Nitrogen 29 mg/dL (9-20); Calcium 7.7 mg/dL (8.4-10.2); Carbon Dioxide 23 mmol/L (22-30); Chloride 102 mmol/L (98-107); Glucose 120 mg/dL (74-99); Potassium 3.8 mmol/L (3.5-5.1); Sodium 133 mmol/L (137-145); Total Bilirubin 0.7 mg/dL (0.2-1.3); Total Protein 4.2 g/dL (6.3-8.2)
[2023-09-28 05:38] LABS: African American GFR (CKD) 31 (>60 ml/min/1.73 sqM); Non-African American GFR(CKD) 26 (>60 ml/min/1.73 sqM)
[2023-09-28 05:51] LABS: ABG Base Excess 2.2 mmol/L; ABG HCO3 27 mmol/L (21-25); ABG Oxygen Saturation 99.8 % (94-97); ABG PCO2 42 mmHg (35-45); ABG PH 7.42 (7.35-7.45); ABG PO2 147 mmHg (83-108); ABG TCO2 28 mmol/L (19-24)
[2023-09-28 05:53] LABS: Allen Test Performed? no
--- NOTE | 2023-09-28 07:15 | XR ---
EXAMINATION TYPE: XR chest 1V portable DATE OF EXAM: 09/28/2023 5:08 AM CLINICAL INDICATION:Male, 67 years old with history of Resp failure; [facility] COMPARISON: Chest radiograph from one day prior. TECHNIQUE: XR chest 1V portable Frontal view of the chest. FINDINGS: Lungs/Pleura: Similar multifocal airspace opacities. No evidence of pneumothorax or pleural effusion. Pulmonary vascularity: Unremarkable. Heart/mediastinum: Cardiomediastinal silhouette is unremarkable. Musculoskeletal: No acute osseous pathology. Other findings: None Lines/Tubes: Tracheostomy cannula tip projecting over the trachea. Left central venous catheter with distal tip at the cavoatrial junction. IMPRESSION: Stable lungs with airspace opacities in lung bases.
[2023-09-28] MEDS ORDERED: PEG 3350 (236 GM/BTL) + LYTES 4,000 ML BOTTLE PO ONE (09:00)
--- NOTE | 2023-09-28 10:07 | P.PN ---
Subjective Progress Note Date: 09/28/23 Patient has had decreased output through his fecal management system. There is less blood seen. His tagged RBC scan yesterday had tactile difficulties. Vital signs appear stable. Trach Site is clean. PEG tube site is clean. Patient received GoLytely bowel prep today we will plan for colonoscopy in the a.m. Objective - Vital Signs Vital signs: Vital Signs Temp 98.6 F 09/28/23 09:34 Pulse 75 09/28/23 09:34 Resp 28 H 09/28/23 09:34 BP 117/43 09/28/23 09:34 Pulse Ox 98 09/28/23 09:34 FiO2 50 09/28/23 09:05 Intake & Output 09/27/23 09/28/23 09/28/23 18:59 06:59 18:59 Intake Total 2092.152 356.944 602.215 Output Total 2910 6 25 Balance -817.848 350.944 577.215 Weight 108.862 kg Intake: IV 343 243 139 0.9 sodium chloride 110 110 30 Piperacillin-Tazobactam 3 200 100 100 .375 gm In Sodium Chloride 0.9% 100 ml @ 25 mls/hr IVPB Q8HR [facility] Rx# :[id number] Pressure Bag 33 33 9 Intake, IV Titration 384.152 113.944 103.215 Amount Anidulafungin 100 mg In 100 100 Sodium Chloride 0.9% 100 ml @ 84 mls/hr IVPB DAILY [facility] Rx#:[id number] Norepinephrine 4 mg In 35 Sodium Chloride 0.9% 250 ml @ 0.03 MCG/KG/MIN 11. 064 mls/hr IV .[id number] [facility] Rx#:[id number] Norepinephrine 8 mg In 249.152 113.944 3.215 Sodium Chloride 0.9% 250 ml @ 0.1 MCG/KG/MIN 18. 731 mls/hr IV .[id number] [facility] Rx#:[id number] Blood Product 585 310 Rc As-1 Unit 0 [id number] Rc As-1 Unit 310 [id number] Rc As-1 Unit 310 [id number] Rc Pheresis As-3 Unit 275 [id number] Hemodialysis 700 Other 80 50 Rc As-1 Unit 50 [id number] Rc As-1 Unit 50 [id number] Output: Urine 10 6 0 Stool 200 25 Hemodialysis 1700 Hemodialysis Net Amount 1000 Other: Voiding Method Indwelling Catheter Indwelling Catheter ABP, PAP, CO, CI - Last Documented Arterial Blood Pressure 118/43 - Labs CBC & Chem 7: 09/28/23 04:45 09/28/23 04:45 Labs: Abnormal Lab Results - Last 24 Hours (Table) 09/26/23 09/27/23 09/27/23 Range/Units 04:32 12:04 13:00 WBC 28.4 H (3.8-10.6) k/uL RBC 3.38 L (4.30-5.90) m/uL Hgb 9.8 L D (13.0-17.5) gm/dL Hct 30.3 L (39.0-53.0) % Neutrophils # (1.3-7.7) k/uL Lymphocytes # (1.0-4.8) k/uL ABG pO2 (83-108) mmHg ABG HCO3 (21-25) mmol/L ABG Total CO2 (19-24) mmol/L ABG O2 Saturation (94-97) % Sodium (137-145) mmol/L BUN (9-20) mg/dL Creatinine (0.66-1.25) mg/dL Glucose (74-99) mg/dL POC Glucose (mg/dL) 196 H (70-110) mg/dL Calcium (8.4-10.2) mg/dL Alkaline Phosphatase (38-126) U/L Total Protein (6.3-8.2) g/dL Albumin (3.5-5.0) g/dL Crossmatch See Detail 09/27/23 09/27/23 09/27/23 Range/Units 15:15 18:32 20:03 WBC 28.8 H (3.8-10.6) k/uL RBC 3.31 L (4.30-5.90) m/uL Hgb 9.7 L (13.0-17.5) gm/dL Hct 29.4 L (39.0-53.0) % Neutrophils # (1.3-7.7) k/uL Lymphocytes # (1.0-4.8) k/uL ABG pO2 (83-108) mmHg ABG HCO3 (21-25) mmol/L ABG Total CO2 (19-24) mmol/L ABG O2 Saturation (94-97) % Sodium (137-145) mmol/L BUN (9-20) mg/dL Creatinine (0.66-1.25) mg/dL Glucose (74-99) mg/dL POC Glucose (mg/dL) 180 H 173 H (70-110) mg/dL Calcium (8.4-10.2) mg/dL Alkaline Phosphatase (38-126) U/L Total Protein (6.3-8.2) g/dL Albumin (3.5-5.0) g/dL Crossmatch 09/27/23 09/27/23 09/27/23 Range/Units 22:45 22:46 23:37 WBC 17.3 H (3.8-10.6) k/uL RBC 2.70 L (4.30-5.90) m/uL Hgb 8.3 L (13.0-17.5) gm/dL Hct 24.6 L (39.0-53.0) % Neutrophils # (1.3-7.7) k/uL Lymphocytes # (1.0-4.8) k/uL ABG pO2 (83-108) mmHg ABG HCO3 (21-25) mmol/L ABG Total CO2 (19-24) mmol/L ABG O2 Saturation (94-97) % Sodium (137-145) mmol/L BUN (9-20) mg/dL Creatinine (0.66-1.25) mg/dL Glucose (74-99) mg/dL POC Glucose (mg/dL) 154 H 159 H (70-110) mg/dL Calcium (8.4-10.2) mg/dL Alkaline Phosphatase (38-126) U/L Total Protein (6.3-8.2) g/dL Albumin (3.5-5.0) g/dL Crossmatch 09/28/23 09/28/23 09/28/23 Range/Units 04:45 04:45 04:50 WBC 14.1 H (3.8-10.6) k/uL RBC 2.52 L (4.30-5.90) m/uL Hgb 7.4 L (13.0-17.5) gm/dL Hct 22.3 L (39.0-53.0) % Neutrophils # 12.4 H (1.3-7.7) k/uL Lymphocytes # 0.8 L (1.0-4.8) k/uL ABG pO2 (83-108) mmHg ABG HCO3 (21-25) mmol/L ABG Total CO2 (19-24) mmol/L ABG O2 Saturation (94-97) % Sodium 133 L (137-145) mmol/L BUN 29 H (9-20) mg/dL Creatinine 2.45 H (0.66-1.25) mg/dL Glucose 120 H (74-99) mg/dL POC Glucose (mg/dL) 135 H (70-110) mg/dL Calcium 7.7 L (8.4-10.2) mg/dL Alkaline Phosphatase 142 H (38-126) U/L Total Protein 4.2 L (6.3-8.2) g/dL Albumin 1.8 L (3.5-5.0) g/dL Crossmatch 09/28/23 Range/Units 05:48 WBC (3.8-10.6) k/uL RBC (4.30-5.90) m/uL Hgb (13.0-17.5) gm/dL Hct (39.0-53.0) % Neutrophils # (1.3-7.7) k/uL Lymphocytes # (1.0-4.8) k/uL ABG pO2 147 H (83-108) mmHg ABG HCO3 27 H (21-25) mmol/L ABG Total CO2 28 H (19-24) mmol/L ABG O2 Saturation 99.8 H (94-97) % Sodium (137-145) mmol/L BUN (9-20) mg/dL Creatinine (0.66-1.25) mg/dL Glucose (74-99) mg/dL POC Glucose (mg/dL) (70-110) mg/dL Calcium (8.4-10.2) mg/dL Alkaline Phosphatase (38-126) U/L Total Protein (6.3-8.2) g/dL Albumin (3.5-5.0) g/dL Crossmatch Microbiology - Last 24 Hours (Table) 09/24/23 11:10 Blood Culture - Preliminary Blood 09/24/23 10:58 Blood Culture - Preliminary Blood
--- NOTE | 2023-09-28 10:11 | P.PN ---
Subjective Progress Note Date: 09/28/23 Principal diagnosis: Respiratory failure. 67-year-old male with past medical history significant for diabetes mellitus, prior toe amputations, hyperlipidemia, coronary artery disease with previous stents, and seizure disorder who presented to the ED on 09/06 with DKA un responsive intubated and mechanically ventilated. Patient was admitted to the ICU for DKA, respiratory failure, and MARIANO. He remained in the ICU until 09/12 when he was transferred to the floors. On 09/18 he was scheduled for colonoscopy as well as PEG placement on 09/21. On 09/18 his O2 requirement increased from 2-6L NC. A Team was called and he was reintubated and transferred to the ICU. Patient was evaluated today on 09/18/2023, patient is about the same, continues to have some discomfort in his back and in his rectal area, supposed to have colonoscopy tomorrow. Eliquis remains on hold. Patient has no active pulmonary issues. WBC count is 8.6 hemoglobin 10.2 electrolytes are normal renal profile is normal The patient was seen today September 19, 2023 in follow-up on the selective care unit. Today he is found to be weak and obtunded. He is requiring more oxygen currently at 6 L high flow nasal cannula. A rapid response team was called on him. Chest x-ray and ABGs reviewed. He will be transferred to the intensive care unit. Serial blood gases on 100% FiO2 revealed a P O2 of 66, pCO2 of 49 and a pH of 7.32. White count 9.9. Hemoglobin 11.3. Platelets 233. Sodium 143. Potassium 4.5. Bicarb 26. BUN 17. Creatinine 0.87. Glucose 151. The patient has been having concerns of rectal pain and possible rectal mass and the plan was for colonoscopy. However the patient was having ongoing issues with difficulty in swallowing and was being considered for PEG tube placement. This was prior to his change in clinical status. X-ray did reveal a right lower lobe infiltrate with minimal right pleural effusion. Patient was evaluated today on 09/20/2023, patient developed a worsening pulmonary status yesterday, required transfer to the ICU intubation mechanical ventilation. I saw the patient yesterday, he underwent bronchoscopy, lines were placed and the patient, and he was kept on mechanical ventilation overnight. Patient is now on assist-control rate of 24 tidal volume 450 FiO2 was 80% earlier but is now 50%, and PEEP of 10 ABG showed a pO2 of 92 pCO2 47 pH of 7.30 his urine output is 5 to 20 cc/h, however his CVP is low and the patient will require more fluid boluses if no improvement after fluid boluses, then we will give the patient Lasix. In the meantime the patient is requiring propofol at 35 mg/kg/min norepinephrine at 0.06 mg/kg/min IV fluid running at 100 cc/h and the patient is also receiving vital HP at 10 cc/h antibiotics rosario he is receiving Flagyl and Zosyn. Chest x-ray continues to show bilateral infiltrates consistent with most likely aspiration pneumonia. Patient was seen by infectious disease and he is now on Flagyl and ZosynWBC count today is 13 hemoglobin 9.3 basic metabolic profile is normal renal profile showed a BUN of 29 creatinine 1.45 Patient was evaluated today on 09/21/2023, remains in the ICU, intubated and mechanically ventilated. Patient is on assist-control rate of 24 tidal volume 450 FiO2 50% and PEEP of 10 ABG showed a pO2 of 79 pCO2 43 pH of 7.26, apparently the patient developed some metabolic acidosis associated with acute kidney injury, and I have recommended 1 amp of bicarb to be given and sodium bicarb to be given orally and I also recommended nephrology evaluation on this patient as his renal status seems to be getting worse and the patient is having less and less urine output. CVP is around 7 patient will receive more fluids today, may consider Lasix depending on the response to fluid boluses. Urine output is extremely low. And again his renal functioning is getting worse. Patient remains on propofol at 50 mcg/kg/min he is also on norepinephrine at 0.03 mcg/kg/min, patient is receiving Glucerna 1.5/enteral feeding, patient remains on Lovenox 80 mg SQ twice daily, he is also on Zosyn and Flagyl. Chest x-ray continues to show bilateral infiltrates. Improved compared to his initial chest x-ray but nonetheless considered to be significant airspace disease bilaterally. Microbiology from the bronchial washing/lavage, showed mostly Lisa, Gram stains and cultures from previous sputum from 09/08/2023 showed E. coli Staph aureus and Streptococcus agalactiae Patient was evaluated today on 09/22/2023, remains in the ICU, intubated and mechanically ventilated. He is on propofol 25 mcg/kg/min, Levophed 0.09 mcg/kg/min, and .9 NS IVF at 10cc/h patient is on assist-control rate of 24 tidal volume 450 FiO2 50% and PEEP of 10. ABG shows pH 7.24 pCO2 42 and pO2 of 97. Patient exhibits normal anion gap metabolic acidosis. Sodium 145, potassium 4.4, chloride 119, CO2 16, BUN 46, creatinine 2.98, glucose 178, and albumin 1.7. He received Sodium bicarb orally, 1amp IVP bicarb, and 80 mg Lasix as per nephrology's recommendation due to patient's poor urine output despite fluids and Lasix. Renal ultrasound showed no hydronephrosis and a left renal cyst. X-ray shows worsening bibasilar infiltrates. Bronchial washings showed Lisa albicans. He is on Zosyn 25ml/hr. Patient was evaluated today on 09/23/2023, remains in ICU, intubated and mechanically ventilated. He is on propofol 50 mcg/kg/min, Levophed 0.06 mcg/kg/min, and 0.9 normal saline IV fluids at 10 cc/h. Patient is on assist- control rate of 24 tidal volume 450 FiO2 50% and PEEP of 10. ABG shows pH of 7.32 pCO2 of 44 and pO2 of 70. Sodium is 143, potassium 4.2, chloride 113, CO2 21, BUN 42, creatinine 3.07, glucose 164, cortisol 11.7 and TSH was 0.618. Urine output remains poor despite fluid restriction and Lasix. Nephrology has discontinued the Lasix drip of 10 mcg/h and placed the patient on 80 mg IVP twice daily. Patient was dialyzed 1L yesterday and is currently undergoing dialysis with a goal of 2.5 L and tolerating well. Patient has FMS in place. He is receiving Glucerna tube feeds at a rate of 35/h. Chest x-ray today remains unchanged shows bibasilar infiltrates with a small right pleural effusion. Patient was evaluated today on 09/24/2023, remains in ICU, intubated and mechanically ventilated. Overnight he was on propofol at a rate of 40 mcg/kg/min, Levophed 0.03 mcg/kg/min, and 0.9 normal saline at 10/h. Patient is on assist-control rate of 24, tidal volume 450, FiO2 50%, PEEP of 10. ABG shows pO2 of 78, CO2 43, pH 7.35. Sodium is 139, potassium 4.4, chloride 108, CO2 21, BUN 40, creatinine 3.11, glucose 194. Blood glucose levels have been ranging in the 200s over the last 24 hours. Urine output remains poor despite fluid restriction and Lasix 80 mg twice daily. Patient was dialyzed 2.9 L yesterday and is undergoing dialysis today with a goal of 3 L. Daily interruption of sedation was unsuccessful yesterday: Patient became asynchronous with the vent, was not arousable, and did not follow commands so SBT was not attempted. Patient has FMS in place. He is receiving Glucerna feeds at a rate of 35/hour. Chest x-ray shows bibasilar infiltrates with slight improvement. Patient has had mild low-grade fevers with a Tmax of 101.3. White count has increased to 13.4 from 9.1 yesterday. Blood culture from 09/19 shows no growth after 72 hours. Procalcitonin yesterday was 5.47. He remains on Zosyn. This morning propofol and Levophed were held for daily interruption of sedation and possible SBT today. Patient was evaluated today on 09/25/2023, remains in ICU, intubated and mechanically ventilated. He is on propofol at a rate of 40 mcg/kg/min, Levophed 0.03 mcg/kg/min, and 0.9 normal saline at 10/h. Patient is on assist control rate of 24, tidal volume 450, FiO2 50%, PEEP of 10. ABG shows PaO2 91, CO2 44, pH 7.4. Sodium is 136, potassium 3.8 which has been repleted, chloride 105, CO2 25, BUN 37, creatinine 2.94, glucose 161. Urine output remains poor despite fluid restriction and Lasix 80 mg twice daily. Patient was dialyzed 3 L yesterday and is undergoing dialysis today. Daily interruption of sedation was unsuccessful yesterday. Patient was not opening his eyes or moving his extremities, unable to follow commands, and asynchronous with the vent, so SBT was not attempted. Patient has FMS in place. He is receiving Glucerna feeds at a rate of 35 an hour. Chest x-ray shows worsening bibasilar consolidations. Patient had low-grade fever of 99.7. White count has decreased from 13.4 yesterday to 10.8 today. Blood culture, urine culture, and sputum culture have all been sent to the lab. Daily interruption of sedation & SBT as tolerated today. Attempts to contact family regarding possible trach and PEG are still ongoing due to patient's multiple unsuccessful attempts to wean off the ventilator. Patient was evaluated today on 09/26/2023, remains in ICU, intubated and mechanically ventilated. Propofol & Levophed have been held since yesterday at 1pm. He is on 0.9NS at KVO. Patient is on assist control rate of 24, tidal volume 450, FiO2 50%, PEEP of 10. ABG shows PaO2 71, CO2 41, pH 7.48. Sodium is 133, potassium 4.1, chloride 99, CO2 28, BUN 35, creatinine 2.76, glucose 187. Urine output remains poor despite fluid restriction and Lasix 80 mg twice daily. Patient was dialyzed 3 L yesterday. Despite being off sedation, patient remains obtunded. He only responds mildly to sternal rubs Patient has FMS in place. Overnight at about 2:40am, the patient developed bright red liquid stool, BP was 118/49 with a map of 67 and a heart rate of 86. Hemoglobin was 8.3. As per primary team. OG was changed to LIS and hemoglobin was repeated. Lovenox & Glucerna tube feeds was held due to scheduled trach & PEG today. Hemoglobin this morning was 7.7. He received 1 unit and 20mg Ddavp given to optimize him for surgery today. White count is 11.4 today. Urine culture showed growth of yeasts and Eraxis was started as per ID's recommendations. Patient was evaluated today on 09/08/2023, remains in ICU, status post trach and PEG yesterday. Tracheostomy tube is leaking but NG tube looks clean dry and intact. Levophed is running at 9.7 mcg/min and 0.9 normal saline at 10/h. Patient is on assist-control rate of 24 tidal volume 450 FiO2 60% PEEP of 10. ABG shows pO2 from 28 pCO2 45 and pH 7.34. Sodium 134, potassium 4.5, chloride 101, CO2 21, BUN 29, creatinine 2.47, and glucose 165. Urine output remains poor despite fluid restriction and Lasix 80 mg twice daily. Patient will be dialyzed today with a goal of 1 L. Patient has a FMS in place. Overnight the patient has had consistently bloody stools and put out about 900 overnight. Tube feeds are being held due to GI bleeding. Surgery recommends RBC tagged study. Hemoglobin was 7.5 this morning and he received his fifth unit of blood. White count is 20 today. Urine culture shows growth of yeasts. Patient remains on Eraxis and Zosyn. Progress note dated September 28, 2023. 67-year-old male who is still in the intensive care unit, on the mechanical ventilator. Vent settings include volume assist-control, rate 24, tidal volume 450, FiO2 60%, to be reduced down to 50%, PEEP of 10. Blood gases show pO2 147, pCO2 42, and a pH of 7.42. The patient is getting saline at 10 cc an hour, norepinephrine has been weaned off. He is scheduled for colonoscopy tomorrow, September 28. Since being here in the unit, and in the hospital, he is received a total of 7 units of packed red blood cells. His red blood cell study, was negative. Head CT was negative. He had hemodialysis yesterday, and 1 L was removed. Current labs include a white count 14.1, hemoglobin 7.4, hematocrit 22.3, and a platelet count of 270,000. Sodium 133, potassium 3.8, chlorides 102, CO2 23, BUN 29, creatinine 2.45. Glucose is 135. Albumin is 1.8. Chest x-ray shows bibasilar infiltrates or opacities. Objective - Vital Signs Vital signs: Vital Signs Temp 98.6 F 09/28/23 09:34 Pulse 75 09/28/23 09:34 Resp 28 H 09/28/23 09:34 BP 117/43 09/28/23 09:34 Pulse Ox 98 09/28/23 09:34 FiO2 50 09/28/23 09:05 Intake & Output 09/27/23 09/28/23 09/28/23 18:59 06:59 18:59 Intake Total 2092.152 356.944 602.215 Output Total 2910 6 25 Balance -817.848 350.944 577.215 Weight 108.862 kg Intake: IV 343 243 139 0.9 sodium chloride 110 110 30 Piperacillin-Tazobactam 3 200 100 100 .375 gm In Sodium Chloride 0.9% 100 ml @ 25 mls/hr IVPB Q8HR [facility] Rx# :[id number] Pressure Bag 33 33 9 Intake, IV Titration 384.152 113.944 103.215 Amount Anidulafungin 100 mg In 100 100 Sodium Chloride 0.9% 100 ml @ 84 mls/hr IVPB DAILY [facility] Rx#:[id number] Norepinephrine 4 mg In 35 Sodium Chloride 0.9% 250 ml @ 0.03 MCG/KG/MIN 11. 064 mls/hr IV .[id number] [facility] Rx#:[id number] Norepinephrine 8 mg In 249.152 113.944 3.215 Sodium Chloride 0.9% 250 ml @ 0.1 MCG/KG/MIN 18. 731 mls/hr IV .[id number] [facility] Rx#:[id number] Blood Product 585 310 Rc As-1 Unit 0 [id number] Rc As-1 Unit 310 [id number] Rc As-1 Unit 310 [id number] Rc Pheresis As-3 Unit 275 [id number] Hemodialysis 700 Other 80 50 Rc As-1 Unit 50 [id number] Rc As-1 Unit 50 [id number] Output: Urine 10 6 0 Stool 200 25 Hemodialysis 1700 Hemodialysis Net Amount 1000 Other: Voiding Method Indwelling Catheter Indwelling Catheter ABP, PAP, CO, CI - Last Documented Arterial Blood Pressure 118/43 - Exam No acute distress, not on any sedation. There is a midline tracheostomy tube. HEENT examination is grossly unremarkable. Mucous membranes are moist. No oral lesions. Neck supple. Full range of motion. No adenopathy thyromegaly or neck vein distention. Cardiovascular examination reveals regular rhythm rate. S1-S2 normal. No S3 or S4. No discernible murmur noted. Heart sounds are distant. Lungs reveal scattered rhonchi. No wheezes. No crackles. Breath sounds equal. Saturations are 97%. Abdomen soft with bowel sounds. PEG tube is noted. No masses or tenderness. Extremities are intact. No cyanosis clubbing or edema. Skin is without rash or lesion. Neurologic examination is unchanged. - Labs CBC & Chem 7: 09/28/23 04:45 09/28/23 04:45 Labs: Abnormal Lab Results - Last 24 Hours (Table) 09/26/23 09/27/23 09/27/23 Range/Units 04:32 12:04 13:00 WBC 28.4 H (3.8-10.6) k/uL RBC 3.38 L (4.30-5.90) m/uL Hgb 9.8 L D (13.0-17.5) gm/dL Hct 30.3 L (39.0-53.0) % Neutrophils # (1.3-7.7) k/uL Lymphocytes # (1.0-4.8) k/uL ABG pO2 (83-108) mmHg ABG HCO3 (21-25) mmol/L ABG Total CO2 (19-24) mmol/L ABG O2 Saturation (94-97) % Sodium (137-145) mmol/L BUN (9-20) mg/dL Creatinine (0.66-1.25) mg/dL Glucose (74-99) mg/dL POC Glucose (mg/dL) 196 H (70-110) mg/dL Calcium (8.4-10.2) mg/dL Alkaline Phosphatase (38-126) U/L Total Protein (6.3-8.2) g/dL Albumin (3.5-5.0) g/dL Crossmatch See Detail 09/27/23 09/27/23 09/27/23 Range/Units 15:15 18:32 20:03 WBC 28.8 H (3.8-10.6) k/uL RBC 3.31 L (4.30-5.90) m/uL Hgb 9.7 L (13.0-17.5) gm/dL Hct 29.4 L (39.0-53.0) % Neutrophils # (1.3-7.7) k/uL Lymphocytes # (1.0-4.8) k/uL ABG pO2 (83-108) mmHg ABG HCO3 (21-25) mmol/L ABG Total CO2 (19-24) mmol/L ABG O2 Saturation (94-97) % Sodium (137-145) mmol/L BUN (9-20) mg/dL Creatinine (0.66-1.25) mg/dL Glucose (74-99) mg/dL POC Glucose (mg/dL) 180 H 173 H (70-110) mg/dL Calcium (8.4-10.2) mg/dL Alkaline Phosphatase (38-126) U/L Total Protein (6.3-8.2) g/dL Albumin (3.5-5.0) g/dL Crossmatch 09/27/23 09/27/23 09/27/23 Range/Units 22:45 22:46 23:37 WBC 17.3 H (3.8-10.6) k/uL RBC 2.70 L (4.30-5.90) m/uL Hgb 8.3 L (13.0-17.5) gm/dL Hct 24.6 L (39.0-53.0) % Neutrophils # (1.3-7.7) k/uL Lymphocytes # (1.0-4.8) k/uL ABG pO2 (83-108) mmHg ABG HCO3 (21-25) mmol/L ABG Total CO2 (19-24) mmol/L ABG O2 Saturation (94-97) % Sodium (137-145) mmol/L BUN (9-20) mg/dL Creatinine (0.66-1.25) mg/dL Glucose (74-99) mg/dL POC Glucose (mg/dL) 154 H 159 H (70-110) mg/dL Calcium (8.4-10.2) mg/dL Alkaline Phosphatase (38-126) U/L Total Protein (6.3-8.2) g/dL Albumin (3.5-5.0) g/dL Crossmatch 09/28/23 09/28/23 09/28/23 Range/Units 04:45 04:45 04:50 WBC 14.1 H (3.8-10.6) k/uL RBC 2.52 L (4.30-5.90) m/uL Hgb 7.4 L (13.0-17.5) gm/dL Hct 22.3 L (39.0-53.0) % Neutrophils # 12.4 H (1.3-7.7) k/uL Lymphocytes # 0.8 L (1.0-4.8) k/uL ABG pO2 (83-108) mmHg ABG HCO3 (21-25) mmol/L ABG Total CO2 (19-24) mmol/L ABG O2 Saturation (94-97) % Sodium 133 L (137-145) mmol/L BUN 29 H (9-20) mg/dL Creatinine 2.45 H (0.66-1.25) mg/dL Glucose 120 H (74-99) mg/dL POC Glucose (mg/dL) 135 H (70-110) mg/dL Calcium 7.7 L (8.4-10.2) mg/dL Alkaline Phosphatase 142 H (38-126) U/L Total Protein 4.2 L (6.3-8.2) g/dL Albumin 1.8 L (3.5-5.0) g/dL Crossmatch 09/28/23 Range/Units 05:48 WBC (3.8-10.6) k/uL RBC (4.30-5.90) m/uL Hgb (13.0-17.5) gm/dL Hct (39.0-53.0) % Neutrophils # (1.3-7.7) k/uL Lymphocytes # (1.0-4.8) k/uL ABG pO2 147 H (83-108) mmHg ABG HCO3 27 H (21-25) mmol/L ABG Total CO2 28 H (19-24) mmol/L ABG O2 Saturation 99.8 H (94-97) % Sodium (137-145) mmol/L BUN (9-20) mg/dL Creatinine (0.66-1.25) mg/dL Glucose (74-99) mg/dL POC Glucose (mg/dL) (70-110) mg/dL Calcium (8.4-10.2) mg/dL Alkaline Phosphatase (38-126) U/L Total Protein (6.3-8.2) g/dL Albumin (3.5-5.0) g/dL Crossmatch Microbiology - Last 24 Hours (Table) 09/24/23 11:10 Blood Culture - Preliminary Blood 09/24/23 10:58 Blood Culture - Preliminary Blood Assessment and Plan Assessment: Acute hypoxic respiratory failure secondary to aspiration pneumonia s/p trach on 09/25. Aspiration PNA Left lower lobe sputum culture(E.coli, MSSA, Group B Strep). Hypotension due to suspected septic shock from pneumonia. Acute kidney injury. Malnutrition with severe hypoalbuminemia s/p PEG tube 09/26. Anasarca secondary to hypoalbuminemia. Candiduria. Unspecified bleeding source Hg 7.5 s/p 3 units RBCs. Normal anion gap metabolic acidosis resolved. Acute DKA resolved. Hx of Type 2 DM. Hx of B/L great toe amputations. HX of Hyperlipidemia. Hx of CAD with previous stent. Hx of seizure disorder. Plan: Plan dated September 28, 2023. The patient has received a total of 7 units of packed red blood cells. His tagged red blood cell study was negative. The patient may have a colonoscopy tomorrow. Head CT was negative. Hemodialysis was performed yesterday. 1 L was removed. The patient is norepinephrine has been weaned off. The FiO2 was dropped from 60%, to 50%. We will continue to follow make recommendations along the way. Patient's overall prognosis remains very guarded. He has been off sedation for a number of days, and has not responded. Prognosis is poor in that regard. Time with Patient: Greater than 30
[2023-09-28] MEDS: PEG 3350 (236 GM/BTL) + LYTES 4,000 ML BOTTLE PEG/G-TUBE ONE (11:25)
--- NOTE | 2023-09-28 11:41 | P.PN ---
Subjective Progress Note Date: 09/28/23 Patient is seen in follow-up for acute kidney injury. Started on hemodialysis September 22, 2023. Oliguric. s/p tracheostomy and PEG tube placement 09/25.Off pressors this morning tolerated HD yesterday. Planning colonoscopy tomorrow. Vital signs reviewed General: Resting in bed. HEENT: Trach/vent LUNGS: Scattered rhonchi. HEART: Rate and Rhythm are regular. ABDOMEN: No distention. EXTREMITITES: 2+ edema. Scrotal edema noted. Objective - Vital Signs Vital signs: Vital Signs Temp 98.1 F 09/28/23 11:14 Pulse 80 09/28/23 11:14 Resp 25 H 09/28/23 11:14 BP 148/53 09/28/23 11:14 Pulse Ox 100 09/28/23 11:00 FiO2 50 09/28/23 09:05 Intake & Output 09/27/23 09/28/23 09/28/23 18:59 06:59 18:59 Intake Total 2092.152 448.067 8224.215 Output Total 2910 6 25 Balance -817.848 244.592 8749.215 Weight 108.862 kg Intake: IV 343 243 265 0.9 sodium chloride 110 110 50 Piperacillin-Tazobactam 3 200 100 200 .375 gm In Sodium Chloride 0.9% 100 ml @ 25 mls/hr IVPB Q8HR [facility] Rx# :[id number] Pressure Bag 33 33 15 Intake, IV Titration 384.152 113.944 103.215 Amount Anidulafungin 100 mg In 100 100 Sodium Chloride 0.9% 100 ml @ 84 mls/hr IVPB DAILY [facility] Rx#:[id number] Norepinephrine 4 mg In 35 Sodium Chloride 0.9% 250 ml @ 0.03 MCG/KG/MIN 11. 064 mls/hr IV .[id number] [facility] Rx#:[id number] Norepinephrine 8 mg In 249.152 113.944 3.215 Sodium Chloride 0.9% 250 ml @ 0.1 MCG/KG/MIN 18. 731 mls/hr IV .[id number] [facility] Rx#:[id number] Blood Product 585 620 Rc As-1 Unit 310 [id number] Rc As-1 Unit 310 [id number] Rc As-1 Unit 310 [id number] Rc Pheresis As-3 Unit 275 [id number] Hemodialysis 700 Other 80 100 Rc As-1 Unit 50 [id number] Rc As-1 Unit 50 [id number] Rc As-1 Unit 50 [id number] Output: Urine 10 6 0 Stool 200 25 Hemodialysis 1700 Hemodialysis Net Amount 1000 Other: Voiding Method Indwelling Catheter Indwelling Catheter ABP, PAP, CO, CI - Last Documented Arterial Blood Pressure 146/52 - Labs CBC & Chem 7: 09/28/23 04:45 09/28/23 04:45 Labs: Abnormal Lab Results - Last 24 Hours (Table) 09/26/23 09/27/23 09/27/23 Range/Units 04:32 12:04 13:00 WBC 28.4 H (3.8-10.6) k/uL RBC 3.38 L (4.30-5.90) m/uL Hgb 9.8 L D (13.0-17.5) gm/dL Hct 30.3 L (39.0-53.0) % Neutrophils # (1.3-7.7) k/uL Lymphocytes # (1.0-4.8) k/uL ABG pO2 (83-108) mmHg ABG HCO3 (21-25) mmol/L ABG Total CO2 (19-24) mmol/L ABG O2 Saturation (94-97) % Sodium (137-145) mmol/L BUN (9-20) mg/dL Creatinine (0.66-1.25) mg/dL Glucose (74-99) mg/dL POC Glucose (mg/dL) 196 H (70-110) mg/dL Calcium (8.4-10.2) mg/dL Alkaline Phosphatase (38-126) U/L Total Protein (6.3-8.2) g/dL Albumin (3.5-5.0) g/dL Crossmatch See Detail 09/27/23 09/27/23 09/27/23 Range/Units 15:15 18:32 20:03 WBC 28.8 H (3.8-10.6) k/uL RBC 3.31 L (4.30-5.90) m/uL Hgb 9.7 L (13.0-17.5) gm/dL Hct 29.4 L (39.0-53.0) % Neutrophils # (1.3-7.7) k/uL Lymphocytes # (1.0-4.8) k/uL ABG pO2 (83-108) mmHg ABG HCO3 (21-25) mmol/L ABG Total CO2 (19-24) mmol/L ABG O2 Saturation (94-97) % Sodium (137-145) mmol/L BUN (9-20) mg/dL Creatinine (0.66-1.25) mg/dL Glucose (74-99) mg/dL POC Glucose (mg/dL) 180 H 173 H (70-110) mg/dL Calcium (8.4-10.2) mg/dL Alkaline Phosphatase (38-126) U/L Total Protein (6.3-8.2) g/dL Albumin (3.5-5.0) g/dL Crossmatch 09/27/23 09/27/23 09/27/23 Range/Units 22:45 22:46 23:37 WBC 17.3 H (3.8-10.6) k/uL RBC 2.70 L (4.30-5.90) m/uL Hgb 8.3 L (13.0-17.5) gm/dL Hct 24.6 L (39.0-53.0) % Neutrophils # (1.3-7.7) k/uL Lymphocytes # (1.0-4.8) k/uL ABG pO2 (83-108) mmHg ABG HCO3 (21-25) mmol/L ABG Total CO2 (19-24) mmol/L ABG O2 Saturation (94-97) % Sodium (137-145) mmol/L BUN (9-20) mg/dL Creatinine (0.66-1.25) mg/dL Glucose (74-99) mg/dL POC Glucose (mg/dL) 154 H 159 H (70-110) mg/dL Calcium (8.4-10.2) mg/dL Alkaline Phosphatase (38-126) U/L Total Protein (6.3-8.2) g/dL Albumin (3.5-5.0) g/dL Crossmatch 09/28/23 09/28/23 09/28/23 Range/Units 04:45 04:45 04:50 WBC 14.1 H (3.8-10.6) k/uL RBC 2.52 L (4.30-5.90) m/uL Hgb 7.4 L (13.0-17.5) gm/dL Hct 22.3 L (39.0-53.0) % Neutrophils # 12.4 H (1.3-7.7) k/uL Lymphocytes # 0.8 L (1.0-4.8) k/uL ABG pO2 (83-108) mmHg ABG HCO3 (21-25) mmol/L ABG Total CO2 (19-24) mmol/L ABG O2 Saturation (94-97) % Sodium 133 L (137-145) mmol/L BUN 29 H (9-20) mg/dL Creatinine 2.45 H (0.66-1.25) mg/dL Glucose 120 H (74-99) mg/dL POC Glucose (mg/dL) 135 H (70-110) mg/dL Calcium 7.7 L (8.4-10.2) mg/dL Alkaline Phosphatase 142 H (38-126) U/L Total Protein 4.2 L (6.3-8.2) g/dL Albumin 1.8 L (3.5-5.0) g/dL Crossmatch 09/28/23 Range/Units 05:48 WBC (3.8-10.6) k/uL RBC (4.30-5.90) m/uL Hgb (13.0-17.5) gm/dL Hct (39.0-53.0) % Neutrophils # (1.3-7.7) k/uL Lymphocytes # (1.0-4.8) k/uL ABG pO2 147 H (83-108) mmHg ABG HCO3 27 H (21-25) mmol/L ABG Total CO2 28 H (19-24) mmol/L ABG O2 Saturation 99.8 H (94-97) % Sodium (137-145) mmol/L BUN (9-20) mg/dL Creatinine (0.66-1.25) mg/dL Glucose (74-99) mg/dL POC Glucose (mg/dL) (70-110) mg/dL Calcium (8.4-10.2) mg/dL Alkaline Phosphatase (38-126) U/L Total Protein (6.3-8.2) g/dL Albumin (3.5-5.0) g/dL Crossmatch Microbiology - Last 24 Hours (Table) 09/24/23 11:10 Blood Culture - Preliminary Blood 09/24/23 10:58 Blood Culture - Preliminary Blood Assessment and Plan Assessment: 1. Acute kidney injury secondary to ATN secondary to hypotension requiring vasopressor support. Baseline creatinine near 1. Oliguric. No hydronephrosis noted on kidney ultrasound. Started on hemodialysis September 21 to 2023 via temporary catheter dialysis catheter. 2. Septic shock secondary to pneumonia on antibiotics. ID following. 3. Metabolic acidosis secondary to acute kidney injury and IV fluids. Improved. 4. Acute hypoxic respiratory failure secondary to pneumonia. Intubated. 5. DKA on presentation status post insulin drip. 6. Hyperphosphatemia secondary to acute kidney injury. Phosphorus level 5.5 dated September 22, 2023. 7. Volume overload. Plan: HD tomorrow.. Maintain IV Lasix 80 mg twice daily. Continue to monitor renal function and urine output. Wean FiO2.
[2023-09-28 11:57] LABS: Glucose,Whole Blood 119 mg/dL (70-110)
--- NOTE | 2023-09-28 13:40 | P.PN ---
Subjective Progress Note Date: 09/28/23 Interval History: 67-year-old male with past medical history significant for diabetes mellitus, p rior toe amputations, hyperlipidemia, coronary artery disease with previous stents, and seizure disorder who presented to the ED on 09/06 with DKA unresponsive intubated and mechanically ventilated. Patient was admitted to the ICU for DKA, respiratory failure, and MARIANO. He remained in the ICU until 09/12 when he was transferred to the floors. On 09/18 he was scheduled for colonoscopy as well as PEG placement on 09/21. On 09/18 his O2 requirement increased from 2-6L NC. A Team was called and he was reintubated and transferred to the ICU. Patient was evaluated today on 09/18/2023, patient is about the same, continues to have some discomfort in his back and in his rectal area, supposed to have colonoscopy tomorrow. Eliquis remains on hold. Patient has no active pulmonary issues. WBC count is 8.6 hemoglobin 10.2 electrolytes are normal renal profile is normal The patient was seen today September 19, 2023 in follow-up on the selective care unit. Today he is found to be weak and obtunded. He is requiring more oxygen currently at 6 L high flow nasal cannula. A rapid response team was called on him. Chest x-ray and ABGs reviewed. He will be transferred to the intensive care unit. Serial blood gases on 100% FiO2 revealed a P O2 of 66, pCO2 of 49 and a pH of 7.32. White count 9.9. Hemoglobin 11.3. Platelets 233. Sodium 143. Potassium 4.5. Bicarb 26. BUN 17. Creatinine 0.87. Glucose 151. The patient has been having concerns of rectal pain and possible rectal mass and the plan was for colonoscopy. However the patient was having ongoing issues with difficulty in swallowing and was being considered for PEG tube placement. This was prior to his change in clinical status. X-ray did reveal a right lower lobe infiltrate with minimal right pleural effusion. Patient was evaluated today on 09/20/2023, patient developed a worsening pulmonary status yesterday, required transfer to the ICU intubation mechanical ventilation. I saw the patient yesterday, he underwent bronchoscopy, lines were placed and the patient, and he was kept on mechanical ventilation overnight. Patient is now on assist-control rate of 24 tidal volume 450 FiO2 was 80% earlier but is now 50%, and PEEP of 10 ABG showed a pO2 of 92 pCO2 47 pH of 7.30 his urine output is 5 to 20 cc/h, however his CVP is low and the patient will require more fluid boluses if no improvement after fluid boluses, then we will give the patient Lasix. In the meantime the patient is requiring propofol at 35 mg/kg/min norepinephrine at 0.06 mg/kg/min IV fluid running at 100 cc/h and the patient is also receiving vital HP at 10 cc/h antibiotics rosario he is receiving Flagyl and Zosyn. Chest x-ray continues to show bilateral infiltrates consistent with most likely aspiration pneumonia. Patient was seen by infectious disease and he is now on Flagyl and ZosynWBC count today is 13 hemoglobin 9.3 basic metabolic profile is normal renal profile showed a BUN of 29 creatinine 1.45 Patient was evaluated today on 09/21/2023, remains in the ICU, intubated and mechanically ventilated. Patient is on assist-control rate of 24 tidal volume 450 FiO2 50% and PEEP of 10 ABG showed a pO2 of 79 pCO2 43 pH of 7.26, apparently the patient developed some metabolic acidosis associated with acute kidney injury, and I have recommended 1 amp of bicarb to be given and sodium bicarb to be given orally and I also recommended nephrology evaluation on this patient as his renal status seems to be getting worse and the patient is having less and less urine output. CVP is around 7 patient will receive more fluids today, may consider Lasix depending on the response to fluid boluses. Urine output is extremely low. And again his renal functioning is getting worse. Patient remains on propofol at 50 mcg/kg/min he is also on norepinephrine at 0.03 mcg/kg/min, patient is receiving Glucerna 1.5/enteral feeding, patient remains on Lovenox 80 mg SQ twice daily, he is also on Zosyn and Flagyl. Chest x-ray continues to show bilateral infiltrates. Improved compared to his initial chest x-ray but nonetheless considered to be significant airspace disease bilaterally. Microbiology from the bronchial washing/lavage, showed mostly Can dida, Gram stains and cultures from previous sputum from 09/08/2023 showed E. coli Staph aureus and Streptococcus agalactiae Patient was evaluated today on 09/22/2023, remains in the ICU, intubated and mechanically ventilated. He is on propofol 25 mcg/kg/min, Levophed 0.09 mcg/kg/min, and .9 NS IVF at 10cc/h patient is on assist-control rate of 24 tidal volume 450 FiO2 50% and PEEP of 10. ABG shows pH 7.24 pCO2 42 and pO2 of 97. Patient exhibits normal anion gap metabolic acidosis. Sodium 145, potassium 4.4, chloride 119, CO2 16, BUN 46, creatinine 2.98, glucose 178, and albumin 1.7. He received Sodium bicarb orally, 1amp IVP bicarb, and 80 mg Lasix as per nephrology's recommendation due to patient's poor urine output despite fluids and Lasix. Renal ultrasound showed no hydronephrosis and a left renal cyst. X-ray shows worsening bibasilar infiltrates. Bronchial washings showed Lisa albicans. He is on Zosyn 25ml/hr. Patient was evaluated today on 09/23/2023, remains in ICU, intubated and mechanically ventilated. He is on propofol 50 mcg/kg/min, Levophed 0.06 mcg/kg/min, and 0.9 normal saline IV fluids at 10 cc/h. Patient is on assist- control rate of 24 tidal volume 450 FiO2 50% and PEEP of 10. ABG shows pH of 7.32 pCO2 of 44 and pO2 of 70. Sodium is 143, potassium 4.2, chloride 113, CO2 21, BUN 42, creatinine 3.07, glucose 164, cortisol 11.7 and TSH was 0.618. Uri ne output remains poor despite fluid restriction and Lasix. Nephrology has discontinued the Lasix drip of 10 mcg/h and placed the patient on 80 mg IVP twice daily. Patient was dialyzed 1L yesterday and is currently undergoing dialysis with a goal of 2.5 L and tolerating well. Patient has FMS in place. He is receiving Glucerna tube feeds at a rate of 35/h. Chest x-ray today remains unchanged shows bibasilar infiltrates with a small right pleural effusion. Patient was evaluated today on 09/24/2023, remains in ICU, intubated and mechanically ventilated. Overnight he was on propofol at a rate of 40 mcg/kg/min, Levophed 0.03 mcg/kg/min, and 0.9 normal saline at 10/h. Patient is on assist-control rate of 24, tidal volume 450, FiO2 50%, PEEP of 10. ABG shows pO2 of 78, CO2 43, pH 7.35. Sodium is 139, potassium 4.4, chloride 108, CO2 21, BUN 40, creatinine 3.11, glucose 194. Blood glucose levels have been ranging in the 200s over the last 24 hours. Urine output remains poor despite fluid restriction and Lasix 80 mg twice daily. Patient was dialyzed 2.9 L yesterday and is undergoing dialysis today with a goal of 3 L. Daily interruption of sedation was unsuccessful yesterday: Patient became asynchronous with the vent, was not arousable, and did not follow commands so SBT was not attempted. Patient has FMS in place. He is receiving Glucerna feeds at a rate of 35/hour. Chest x-ray shows bibasilar infiltrates with slight improvement. Patient has had mild low-grade fevers with a Tmax of 101.3. White count has increased to 13.4 from 9.1 yesterday. Blood culture from 09/19 shows no growth after 72 hours. Procalcitonin yesterday was 5.47. He remains on Zosyn. This morning propofol and Levophed were held for daily interruption of sedation and possible SBT today. Patient was evaluated today on 09/25/2023, remains in ICU, intubated and mechanically ventilated. He is on propofol at a rate of 40 mcg/kg/min, Levophed 0.03 mcg/kg/min, and 0.9 normal saline at 10/h. Patient is on assist control rate of 24, tidal volume 450, FiO2 50%, PEEP of 10. ABG shows PaO2 91, CO2 44, pH 7.4. Sodium is 136, potassium 3.8 which has been repleted, chloride 105, CO2 25, BUN 37, creatinine 2.94, glucose 161. Urine output remains poor despite fluid restriction and Lasix 80 mg twice daily. Patient was dialyzed 3 L yesterday and is undergoing dialysis today. Daily interruption of sedation was unsuccessful yesterday. Patient was not opening his eyes or moving his extremities, unable to follow commands, and asynchronous with the vent, so SBT was not attempted. Patient has FMS in place. He is receiving Glucerna feeds at a rate of 35 an hour. Chest x-ray shows worsening bibasilar consolidations. Patient had low-grade fever of 99.7. White count has decreased from 13.4 yesterday to 10.8 today. Blood culture, urine culture, and sputum culture have all been sent to the lab. Daily interruption of sedation & SBT as tolerated today. Attempts to contact family regarding possible trach and PEG are still ongoing due to patient's multiple unsuccessful attempts to wean off the ventilator. Patient was evaluated today on 09/26/2023, remains in ICU, intubated and mecha nically ventilated. Propofol & Levophed have been held since yesterday at 1pm. He is on 0.9NS at KVO. Patient is on assist control rate of 24, tidal volume 450, FiO2 50%, PEEP of 10. ABG shows PaO2 71, CO2 41, pH 7.48. Sodium is 133, potassium 4.1, chloride 99, CO2 28, BUN 35, creatinine 2.76, glucose 187. Urine output remains poor despite fluid restriction and Lasix 80 mg twice daily. Patient was dialyzed 3 L yesterday. Despite being off sedation, patient remains obtunded. He only responds mildly to sternal rubs Patient has FMS in place. Overnight at about 2:40am, the patient developed bright red liquid stool, BP was 118/49 with a map of 67 and a heart rate of 86. Hemoglobin was 8.3. As per primary team. OG was changed to LIS and hemoglobin was repeated. Lovenox & Glucerna tube feeds was held due to scheduled trach & PEG today. Hemoglobin this morning was 7.7. He received 1 unit and 20mg Ddavp given to optimize him for surgery today. White count is 11.4 today. Urine culture showed growth of yeasts and Eraxis was started as per ID's recommendations. Patient was evaluated today on 09/08/2023, remains in ICU, status post trach and PEG yesterday. Tracheostomy tube is leaking but NG tube looks clean dry and intact. Levophed is running at 9.7 mcg/min and 0.9 normal saline at 10/h. Patient is on assist-control rate of 24 tidal volume 450 FiO2 60% PEEP of 10. ABG shows pO2 from 28 pCO2 45 and pH 7.34. Sodium 134, potassium 4.5, chloride 101, CO2 21, BUN 29, creatinine 2.47, and glucose 165. Urine output remains poor despite fluid restriction and Lasix 80 mg twice daily. Patient will be dialyzed today with a goal of 1 L. Patient has a FMS in place. Overnight the patient has had consistently bloody stools and put out about 900 overnight. Tube feeds are being held due to GI bleeding. Surgery recommends RBC tagged study. Hemoglobin was 7.5 this morning and he received his fifth unit of blood. White count is 20 today. Urine culture shows growth of yeasts. Patient remains on Eraxis and Zosyn. 09/26--patient was seen and examined today. Patient on mechanical ventilation through tracheostomy tube. Has a PEG tube in place. Rectal tube in place with light red blood. Currently on Levophed. Was undergoing hemodialysis at the time of examination. Laboratory of system as patient is sedated and intubated. 09/27--- patient still on mechanical ventilator in the ICU, ventilator settings with tidal volume 450, FiO2 60%, PEEP of 10. Blood gas showed pO2 147, pCO2 42, pH of 7.42. Patient blood pressure is now stable, patient's Levophed has been weaned off. General surgery is following and patient plan for colonoscopy tomorrow. Patient received 2 more units of packed RBCs overnight, has received total 7 units packed RBCs so far. Head CT was negative. Patient had hemodialysis yesterday, oliguric, on IV Lasix, nephrology following, plan for hemodialysis tomorrow. Hemoglobin this morning 7.4. White count 14.1. Platelet count is normal. BUN 29, creatinine 2.45. Albumin is 1.8. Chest x- ray showing bibasilar infiltrate or opacities. REVIEW OF SYSTEMS: Limited, patient on mechanical ventilation. PHYSICAL EXAMINATION: GENERAL: The patient is alert and oriented x0, on mechanical ventilation through tracheostomy. HEENT: Pupils are round and equally reacting to light. EOMI. No scleral icterus. No conjunctival pallor. Normocephalic, atraumatic. No pharyngeal erythema. No thyromegaly. Tracheostomy. CARDIOVASCULAR: S1 and S2 present. No murmurs, rubs, or gallops. PULMONARY: Chest is clear to auscultation, no wheezing or crackles. ABDOMEN: Soft, nontender, nondistended, normoactive bowel sounds. No palpable organomegaly. PEG tube in place. MUSCULOSKELETAL: No joint swelling or deformity. EXTREMITIES: No cyanosis, clubbing,++edema NEUROLOGICAL: Sedated, intubated. SKIN: No rashes. Assessment and plan Acute hypoxic respiratory failure: Aspiration pneumonia: Status post tracheostomy and PEG tube placement 09/25 Septic shock Acute kidney injury: Currently on hemodialysis Volume overload: Severe PCM Anasarca secondary to hypoalbuminemia Continue urea Lower GI bleed status post multiple PRBC transfusion Rectal and sigmoid colon thickening on CT: DKA: Resolved History of bilateral great toe amputation History of lipidemia History of CAD and previous stent History of seizure disorder Plan: Patient is currently intubated, on mechanical ventilation through tracheostomy, in ICU. Pulmonary/ICU on board. On Levophed. Currently on Eraxis and zosyn, infectious disease following. Receiving hemodialysis per nephrology. Diuresis with IV Lasix. Continue Levemir 20 units, sliding scale. Tube feeds through tracheostomy tube. Monitor H&H, transfuse for hemoglobin less than 7.0.--Total 7 units packed RBCs so far. Packed RBC scan 09/26 was negative. General surgery on board, plan for colonoscopy on Friday for further evaluation of rectal bleeding while thickening of rectum and sigmoid colon on CT DVT and GI prophylaxis Dictation was produced using [employer] dictation software. please excuse any grammatical, word or spelling errors. Objective - Vital Signs Vital signs: Vital Signs Temp 98.7 F 09/28/23 12:00 Pulse 78 09/28/23 13:00 Resp 24 09/28/23 13:00 BP 135/66 09/28/23 13:00 Pulse Ox 99 09/28/23 13:00 FiO2 50 09/28/23 12:19 Intake & Output 09/27/23 09/28/23 09/28/23 18:59 06:59 18:59 Intake Total 2092.152 431.405 5020.215 Output Total 2910 6 25 Balance -817.848 973.527 8941.215 Weight 108.862 kg Intake: IV 343 243 391 0.9 sodium chloride 110 110 70 Piperacillin-Tazobactam 3 200 100 300 .375 gm In Sodium Chloride 0.9% 100 ml @ 25 mls/hr IVPB Q8HR [facility] Rx# :[id number] Pressure Bag 33 33 21 Intake, IV Titration 384.152 113.944 103.215 Amount Anidulafungin 100 mg In 100 100 Sodium Chloride 0.9% 100 ml @ 84 mls/hr IVPB DAILY [facility] Rx#:[id number] Norepinephrine 4 mg In 35 Sodium Chloride 0.9% 250 ml @ 0.03 MCG/KG/MIN 11. 064 mls/hr IV .[id number] [facility] Rx#:[id number] Norepinephrine 8 mg In 249.152 113.944 3.215 Sodium Chloride 0.9% 250 ml @ 0.1 MCG/KG/MIN 18. 731 mls/hr IV .[id number] [facility] Rx#:[id number] Blood Product 585 620 Rc As-1 Unit 310 [id number] Rc As-1 Unit 310 [id number] Rc As-1 Unit 310 [id number] Rc Pheresis As-3 Unit 275 [id number] Hemodialysis 700 Other 80 3100 Rc As-1 Unit 50 [id number] Rc As-1 Unit 50 [id number] Rc As-1 Unit 50 [id number] Output: Urine 10 6 0 Stool 200 25 Hemodialysis 1700 Hemodialysis Net Amount 1000 Other: Voiding Method Indwelling Catheter Indwelling Catheter Indwelling Catheter ABP, PAP, CO, CI - Last Documented Arterial Blood Pressure 141/51 - Labs CBC & Chem 7: 09/28/23 04:45 09/28/23 04:45 Labs: Abnormal Lab Results - Last 24 Hours (Table) 09/26/23 09/27/23 09/27/23 Range/Units 04:32 15:15 18:32 WBC 28.8 H (3.8-10.6) k/uL RBC 3.31 L (4.30-5.90) m/uL Hgb 9.7 L (13.0-17.5) gm/dL Hct 29.4 L (39.0-53.0) % Neutrophils # (1.3-7.7) k/uL Lymphocytes # (1.0-4.8) k/uL ABG pO2 (83-108) mmHg ABG HCO3 (21-25) mmol/L ABG Total CO2 (19-24) mmol/L ABG O2 Saturation (94-97) % Sodium (137-145) mmol/L BUN (9-20) mg/dL Creatinine (0.66-1.25) mg/dL Glucose (74-99) mg/dL POC Glucose (mg/dL) 180 H (70-110) mg/dL Calcium (8.4-10.2) mg/dL Alkaline Phosphatase (38-126) U/L Total Protein (6.3-8.2) g/dL Albumin (3.5-5.0) g/dL Crossmatch See Detail 09/27/23 09/27/23 09/27/23 Range/Units 20:03 22:45 22:46 WBC 17.3 H (3.8-10.6) k/uL RBC 2.70 L (4.30-5.90) m/uL Hgb 8.3 L (13.0-17.5) gm/dL Hct 24.6 L (39.0-53.0) % Neutrophils # (1.3-7.7) k/uL Lymphocytes # (1.0-4.8) k/uL ABG pO2 (83-108) mmHg ABG HCO3 (21-25) mmol/L ABG Total CO2 (19-24) mmol/L ABG O2 Saturation (94-97) % Sodium (137-145) mmol/L BUN (9-20) mg/dL Creatinine (0.66-1.25) mg/dL Glucose (74-99) mg/dL POC Glucose (mg/dL) 173 H 154 H (70-110) mg/dL Calcium (8.4-10.2) mg/dL Alkaline Phosphatase (38-126) U/L Total Protein (6.3-8.2) g/dL Albumin (3.5-5.0) g/dL Crossmatch 09/27/23 09/28/23 09/28/23 Range/Units 23:37 04:45 04:45 WBC 14.1 H (3.8-10.6) k/uL RBC 2.52 L (4.30-5.90) m/uL Hgb 7.4 L (13.0-17.5) gm/dL Hct 22.3 L (39.0-53.0) % Neutrophils # 12.4 H (1.3-7.7) k/uL Lymphocytes # 0.8 L (1.0-4.8) k/uL ABG pO2 (83-108) mmHg ABG HCO3 (21-25) mmol/L ABG Total CO2 (19-24) mmol/L ABG O2 Saturation (94-97) % Sodium 133 L (137-145) mmol/L BUN 29 H (9-20) mg/dL Creatinine 2.45 H (0.66-1.25) mg/dL Glucose 120 H (74-99) mg/dL POC Glucose (mg/dL) 159 H (70-110) mg/dL Calcium 7.7 L (8.4-10.2) mg/dL Alkaline Phosphatase 142 H (38-126) U/L Total Protein 4.2 L (6.3-8.2) g/dL Albumin 1.8 L (3.5-5.0) g/dL Crossmatch 09/28/23 09/28/23 09/28/23 Range/Units 04:50 05:48 11:56 WBC (3.8-10.6) k/uL RBC (4.30-5.90) m/uL Hgb (13.0-17.5) gm/dL Hct (39.0-53.0) % Neutrophils # (1.3-7.7) k/uL Lymphocytes # (1.0-4.8) k/uL ABG pO2 147 H (83-108) mmHg ABG HCO3 27 H (21-25) mmol/L ABG Total CO2 28 H (19-24) mmol/L ABG O2 Saturation 99.8 H (94-97) % Sodium (137-145) mmol/L BUN (9-20) mg/dL Creatinine (0.66-1.25) mg/dL Glucose (74-99) mg/dL POC Glucose (mg/dL) 135 H 119 H (70-110) mg/dL Calcium (8.4-10.2) mg/dL Alkaline Phosphatase (38-126) U/L Total Protein (6.3-8.2) g/dL Albumin (3.5-5.0) g/dL Crossmatch Microbiology - Last 24 Hours (Table) 09/24/23 11:10 Blood Culture - Preliminary Blood 09/24/23 10:58 Blood Culture - Preliminary Blood
[2023-09-28 14:23] LABS: Anisocytosis Slight; HCT 26.9 % (39.0-53.0); MCH 29.7 pg (25.0-35.0); MCHC 33.1 g/dL (31.0-37.0); MCV 89.9 fL (80.0-100.0); Mean Platelet Volume 9.9; Platelet Count 190 k/uL (150-450); Poikilocytosis Slight; RBC 2.99 m/uL (4.30-5.90); RDW 16.1 % (11.5-15.5); WBC 14.2 k/uL (3.8-10.6)
[2023-09-28 14:26] LABS: HGB 8.9 gm/dL (13.0-17.5)
[2023-09-28 17:50] LABS: Glucose,Whole Blood 128 mg/dL (70-110)
--- NOTE | 2023-09-28 19:42 | P.PN ---
Subjective Progress Note Date: 09/28/23 Principal diagnosis: Reason for follow-up is fever Patient is a 67-year-old male with a past medical history significant for coronary disease diabetes mellitus [place] seizure disorder history of diabetic foot infection status post bilateral big toe amputation presenting to the hospital with unresponsiveness patient was initially hypothermic subsequently started spiking fever initial workup with a chest x-ray and urine was negative.Patient is status post tracheostomy on 09/26/2023 On today's evaluation that is 09/28/2023,the patient remains to be afebrile with no fever in the last 24 hours patient remains to be intubated on the vent hemodynamically stable FiO2 is down to 50% overall bleeding per rectum has decreased with decreased output in his fecal management system as reported by the nursing staff. Patient white count is 14.2 creatinine 0.45 C. difficile negative Objective - Vital Signs Vital signs: Vital Signs Temp 98.6 F 09/28/23 09:34 Pulse 75 09/28/23 09:34 Resp 28 H 09/28/23 09:34 BP 117/43 09/28/23 09:34 Pulse Ox 98 09/28/23 09:34 FiO2 50 09/28/23 09:05 Intake & Output 09/27/23 09/28/23 09/28/23 18:59 06:59 18:59 Intake Total 2092.152 356.944 602.215 Output Total 2910 6 25 Balance -817.848 350.944 577.215 Weight 108.862 kg Intake: IV 343 243 139 0.9 sodium chloride 110 110 30 Piperacillin-Tazobactam 3 200 100 100 .375 gm In Sodium Chloride 0.9% 100 ml @ 25 mls/hr IVPB Q8HR [facility] Rx# :[id number] Pressure Bag 33 33 9 Intake, IV Titration 384.152 113.944 103.215 Amount Anidulafungin 100 mg In 100 100 Sodium Chloride 0.9% 100 ml @ 84 mls/hr IVPB DAILY [facility] Rx#:[id number] Norepinephrine 4 mg In 35 Sodium Chloride 0.9% 250 ml @ 0.03 MCG/KG/MIN 11. 064 mls/hr IV .[id number] [facility] Rx#:[id number] Norepinephrine 8 mg In 249.152 113.944 3.215 Sodium Chloride 0.9% 250 ml @ 0.1 MCG/KG/MIN 18. 731 mls/hr IV .[id number] [facility] Rx#:[id number] Blood Product 585 310 Rc As-1 Unit 0 [id number] Rc As-1 Unit 310 [id number] Rc As-1 Unit 310 [id number] Rc Pheresis As-3 Unit 275 [id number] Hemodialysis 700 Other 80 50 Rc As-1 Unit 50 [id number] Rc As-1 Unit 50 [id number] Output: Urine 10 6 0 Stool 200 25 Hemodialysis 1700 Hemodialysis Net Amount 1000 Other: Voiding Method Indwelling Catheter Indwelling Catheter ABP, PAP, CO, CI - Last Documented Arterial Blood Pressure 118/43 - Exam GENERAL DESCRIPTION: An elderly male intubated on the vent through the trach RESPIRATORY SYSTEM: Unlabored breathing , decreased breath sounds at bases HEART: S1 S2 regular rate and rhythm , ABDOMEN: Soft , no tenderness EXTREMITIES: No edema feet - Labs CBC & Chem 7: 09/28/23 14:00 09/28/23 04:45 Labs: Abnormal Lab Results - Last 24 Hours (Table) 09/26/23 09/27/23 09/27/23 Range/Units 04:32 12:04 13:00 WBC 28.4 H (3.8-10.6) k/uL RBC 3.38 L (4.30-5.90) m/uL Hgb 9.8 L D (13.0-17.5) gm/dL Hct 30.3 L (39.0-53.0) % Neutrophils # (1.3-7.7) k/uL Lymphocytes # (1.0-4.8) k/uL ABG pO2 (83-108) mmHg ABG HCO3 (21-25) mmol/L ABG Total CO2 (19-24) mmol/L ABG O2 Saturation (94-97) % Sodium (137-145) mmol/L BUN (9-20) mg/dL Creatinine (0.66-1.25) mg/dL Glucose (74-99) mg/dL POC Glucose (mg/dL) 196 H (70-110) mg/dL Calcium (8.4-10.2) mg/dL Alkaline Phosphatase (38-126) U/L Total Protein (6.3-8.2) g/dL Albumin (3.5-5.0) g/dL Crossmatch See Detail 09/27/23 09/27/23 09/27/23 Range/Units 15:15 18:32 20:03 WBC 28.8 H (3.8-10.6) k/uL RBC 3.31 L (4.30-5.90) m/uL Hgb 9.7 L (13.0-17.5) gm/dL Hct 29.4 L (39.0-53.0) % Neutrophils # (1.3-7.7) k/uL Lymphocytes # (1.0-4.8) k/uL ABG pO2 (83-108) mmHg ABG HCO3 (21-25) mmol/L ABG Total CO2 (19-24) mmol/L ABG O2 Saturation (94-97) % Sodium (137-145) mmol/L BUN (9-20) mg/dL Creatinine (0.66-1.25) mg/dL Glucose (74-99) mg/dL POC Glucose (mg/dL) 180 H 173 H (70-110) mg/dL Calcium (8.4-10.2) mg/dL Alkaline Phosphatase (38-126) U/L Total Protein (6.3-8.2) g/dL Albumin (3.5-5.0) g/dL Crossmatch 09/27/23 09/27/23 09/27/23 Range/Units 22:45 22:46 23:37 WBC 17.3 H (3.8-10.6) k/uL RBC 2.70 L (4.30-5.90) m/uL Hgb 8.3 L (13.0-17.5) gm/dL Hct 24.6 L (39.0-53.0) % Neutrophils # (1.3-7.7) k/uL Lymphocytes # (1.0-4.8) k/uL ABG pO2 (83-108) mmHg ABG HCO3 (21-25) mmol/L ABG Total CO2 (19-24) mmol/L ABG O2 Saturation (94-97) % Sodium (137-145) mmol/L BUN (9-20) mg/dL Creatinine (0.66-1.25) mg/dL Glucose (74-99) mg/dL POC Glucose (mg/dL) 154 H 159 H (70-110) mg/dL Calcium (8.4-10.2) mg/dL Alkaline Phosphatase (38-126) U/L Total Protein (6.3-8.2) g/dL Albumin (3.5-5.0) g/dL Crossmatch 09/28/23 09/28/23 09/28/23 Range/Units 04:45 04:45 04:50 WBC 14.1 H (3.8-10.6) k/uL RBC 2.52 L (4.30-5.90) m/uL Hgb 7.4 L (13.0-17.5) gm/dL Hct 22.3 L (39.0-53.0) % Neutrophils # 12.4 H (1.3-7.7) k/uL Lymphocytes # 0.8 L (1.0-4.8) k/uL ABG pO2 (83-108) mmHg ABG HCO3 (21-25) mmol/L ABG Total CO2 (19-24) mmol/L ABG O2 Saturation (94-97) % Sodium 133 L (137-145) mmol/L BUN 29 H (9-20) mg/dL Creatinine 2.45 H (0.66-1.25) mg/dL Glucose 120 H (74-99) mg/dL POC Glucose (mg/dL) 135 H (70-110) mg/dL Calcium 7.7 L (8.4-10.2) mg/dL Alkaline Phosphatase 142 H (38-126) U/L Total Protein 4.2 L (6.3-8.2) g/dL Albumin 1.8 L (3.5-5.0) g/dL Crossmatch 09/28/23 Range/Units 05:48 WBC (3.8-10.6) k/uL RBC (4.30-5.90) m/uL Hgb (13.0-17.5) gm/dL Hct (39.0-53.0) % Neutrophils # (1.3-7.7) k/uL Lymphocytes # (1.0-4.8) k/uL ABG pO2 147 H (83-108) mmHg ABG HCO3 27 H (21-25) mmol/L ABG Total CO2 28 H (19-24) mmol/L ABG O2 Saturation 99.8 H (94-97) % Sodium (137-145) mmol/L BUN (9-20) mg/dL Creatinine (0.66-1.25) mg/dL Glucose (74-99) mg/dL POC Glucose (mg/dL) (70-110) mg/dL Calcium (8.4-10.2) mg/dL Alkaline Phosphatase (38-126) U/L Total Protein (6.3-8.2) g/dL Albumin (3.5-5.0) g/dL Crossmatch Microbiology - Last 24 Hours (Table) 09/24/23 11:10 Blood Culture - Preliminary Blood 09/24/23 10:58 Blood Culture - Preliminary Blood Assessment and Plan (1) Fever Current Visit: Yes Status: Acute Code(s): R50.9 - FEVER, UNSPECIFIED SNOMED Code(s): 195281997 (2) Pneumonia Current Visit: Yes Status: Acute Code(s): J18.9 - PNEUMONIA, UNSPECIFIED ORGANISM SNOMED Code(s): 732440704 (3) Diarrhea Current Visit: Yes Status: Acute Code(s): R19.7 - DIARRHEA, UNSPECIFIED SNOMED Code(s): 90752447 Plan: 1patient with an episode of less responsiveness and concern for possible aspiration but the patient has been transferred back to the ICU patient is status post bronchoscopy and cultures are currently growing Lisa albicans, patient has been on Zosyn 2patient did have a new fever source likely catheter associated UTI with urine growing yeast, the patient is on amiodarone and cannot use Diflucan, patient to continue with Eraxis 3patient also have developed bleeding per rectum, surgery is following the patient overall output has decreased stool for C. difficile x 2 has been negative Dictation was produced using [employer] dictation software. please excuse any grammatical, word or spelling errors.
[2023-09-28 19:50] LABS: Glucose,Whole Blood 98 mg/dL (70-110)
[2023-09-28 22:25] LABS: HCT 26.8 % (39.0-53.0); HGB 8.8 gm/dL (13.0-17.5); MCHC 32.9 g/dL (31.0-37.0); MCV 88.1 fL (80.0-100.0); Mean Platelet Volume 8.8; Platelet Count 211 k/uL (150-450); RBC 3.04 m/uL (4.30-5.90); RDW 15.6 % (11.5-15.5); WBC 12.5 k/uL (3.8-10.6)
--- NOTE | 2023-09-28 23:01 | P.PN ---
Subjective Progress Note Date: 09/26/23 Pt seen and evaluated in the ICU. He is scheduled for trach and PEG placement. He continues to experience rectal bleeding which worsened last night. Pt did require 1 U PRBC. Objective - Vital Signs Vital signs: Vital Signs Temp 97.6 F 09/28/23 20:00 Pulse 69 09/28/23 22:00 Resp 24 09/28/23 22:00 BP 107/55 09/28/23 22:00 Pulse Ox 100 09/28/23 22:00 FiO2 50 09/28/23 20:01 Intake & Output 09/28/23 09/28/23 09/29/23 06:59 18:59 06:59 Intake Total 907.887 8215.215 52 Output Total 6 25 530 Balance 889.977 5228.215 -478 Weight 108.862 kg Intake: IV 243 556 52 0.9 sodium chloride 110 120 40 Piperacillin-Tazobactam 3 100 400 .375 gm In Sodium Chloride 0.9% 100 ml @ 25 mls/hr IVPB Q8HR [facility] Rx# :[id number] Pressure Bag 33 36 12 Intake, IV Titration 113.944 103.215 Amount Anidulafungin 100 mg In 100 Sodium Chloride 0.9% 100 ml @ 84 mls/hr IVPB DAILY [facility] Rx#:[id number] Norepinephrine 8 mg In 113.944 3.215 Sodium Chloride 0.9% 250 ml @ 0.1 MCG/KG/MIN 18. 731 mls/hr IV .[id number] [facility] Rx#:[id number] Blood Product 620 As-1 Unit 310 [id number] As-1 Unit 310 [id number] Other 4100 As-1 Unit 50 [id number] As-1 Unit 50 [id number] Output: Urine 6 0 30 Stool 25 500 Other: Voiding Method Indwelling Catheter Indwelling Catheter Indwelling Catheter # Bowel Movements 1 ABP, PAP, CO, CI - Last Documented Arterial Blood Pressure 137/47 - Exam Gen: elderly male, intubated, appears frail CV: regular, no murmur Lungs: No wheezes or rales Neuro: Obtunded - Labs CBC & Chem 7: 09/28/23 21:56 09/28/23 04:45 Labs: Abnormal Lab Results - Last 24 Hours (Table) 09/26/23 09/27/23 09/27/23 Range/Units 04:32 22:45 23:37 WBC 17.3 H (3.8-10.6) k/uL RBC 2.70 L (4.30-5.90) m/uL Hgb 8.3 L (13.0-17.5) gm/dL Hct 24.6 L (39.0-53.0) % RDW (11.5-15.5) % Neutrophils # (1.3-7.7) k/uL Lymphocytes # (1.0-4.8) k/uL ABG pO2 (83-108) mmHg ABG HCO3 (21-25) mmol/L ABG Total CO2 (19-24) mmol/L ABG O2 Saturation (94-97) % Sodium (137-145) mmol/L BUN (9-20) mg/dL Creatinine (0.66-1.25) mg/dL Glucose (74-99) mg/dL POC Glucose (mg/dL) 159 H (70-110) mg/dL Calcium (8.4-10.2) mg/dL Alkaline Phosphatase (38-126) U/L Total Protein (6.3-8.2) g/dL Albumin (3.5-5.0) g/dL Crossmatch See Detail 09/28/23 09/28/23 09/28/23 Range/Units 04:45 04:45 04:50 WBC 14.1 H (3.8-10.6) k/uL RBC 2.52 L (4.30-5.90) m/uL Hgb 7.4 L (13.0-17.5) gm/dL Hct 22.3 L (39.0-53.0) % RDW (11.5-15.5) % Neutrophils # 12.4 H (1.3-7.7) k/uL Lymphocytes # 0.8 L (1.0-4.8) k/uL ABG pO2 (83-108) mmHg ABG HCO3 (21-25) mmol/L ABG Total CO2 (19-24) mmol/L ABG O2 Saturation (94-97) % Sodium 133 L (137-145) mmol/L BUN 29 H (9-20) mg/dL Creatinine 2.45 H (0.66-1.25) mg/dL Glucose 120 H (74-99) mg/dL POC Glucose (mg/dL) 135 H (70-110) mg/dL Calcium 7.7 L (8.4-10.2) mg/dL Alkaline Phosphatase 142 H (38-126) U/L Total Protein 4.2 L (6.3-8.2) g/dL Albumin 1.8 L (3.5-5.0) g/dL Crossmatch 09/28/23 09/28/23 09/28/23 Range/Units 05:48 11:56 14:00 WBC 14.2 H (3.8-10.6) k/uL RBC 2.99 L (4.30-5.90) m/uL Hgb 8.9 L D (13.0-17.5) gm/dL Hct 26.9 L (39.0-53.0) % RDW 16.1 H (11.5-15.5) % Neutrophils # (1.3-7.7) k/uL Lymphocytes # (1.0-4.8) k/uL ABG pO2 147 H (83-108) mmHg ABG HCO3 27 H (21-25) mmol/L ABG Total CO2 28 H (19-24) mmol/L ABG O2 Saturation 99.8 H (94-97) % Sodium (137-145) mmol/L BUN (9-20) mg/dL Creatinine (0.66-1.25) mg/dL Glucose (74-99) mg/dL POC Glucose (mg/dL) 119 H (70-110) mg/dL Calcium (8.4-10.2) mg/dL Alkaline Phosphatase (38-126) U/L Total Protein (6.3-8.2) g/dL Albumin (3.5-5.0) g/dL Crossmatch 09/28/23 09/28/23 Range/Units 17:49 21:56 WBC 12.5 H (3.8-10.6) k/uL RBC 3.04 L (4.30-5.90) m/uL Hgb 8.8 L (13.0-17.5) gm/dL Hct 26.8 L (39.0-53.0) % RDW 15.6 H (11.5-15.5) % Neutrophils # (1.3-7.7) k/uL Lymphocytes # (1.0-4.8) k/uL ABG pO2 (83-108) mmHg ABG HCO3 (21-25) mmol/L ABG Total CO2 (19-24) mmol/L ABG O2 Saturation (94-97) % Sodium (137-145) mmol/L BUN (9-20) mg/dL Creatinine (0.66-1.25) mg/dL Glucose (74-99) mg/dL POC Glucose (mg/dL) 128 H (70-110) mg/dL Calcium (8.4-10.2) mg/dL Alkaline Phosphatase (38-126) U/L Total Protein (6.3-8.2) g/dL Albumin (3.5-5.0) g/dL Crossmatch Assessment and Plan Plan: Continue with current ICU management. IV fluids per Nephrology recommendations. Closely follow Hgb. Continue with levemir, sliding scale insulin. Prognosis is guarded
[2023-09-28 23:06] LABS: Glucose,Whole Blood 104 mg/dL (70-110)
[2023-09-29 04:24] LABS: Basophils % (A) 0 %; Eosinophils # (A) 0.1 k/uL (0-0.7); Eosinophils % (A) 1 %; HCT 28.6 % (39.0-53.0); HGB 9.2 gm/dL (13.0-17.5); Hypochromasia Slight; Lymphocytes # (A) 0.6 k/uL (1.0-4.8); Lymphocytes % (A) 5 %; MCH 28.5 pg (25.0-35.0); MCHC 32.3 g/dL (31.0-37.0); MCV 88.4 fL (80.0-100.0); Mean Platelet Volume 10.1; Monocytes # (A) 0.4 k/uL (0-1.0); Monocytes % (A) 4 %; Neutrophils # (A) 10.8 k/uL (1.3-7.7); Neutrophils % (A) 90 %; Platelet Count 184 k/uL (150-450); RBC 3.23 m/uL (4.30-5.90); RDW 15.8 % (11.5-15.5); WBC 12.1 k/uL (3.8-10.6)
[2023-09-29 04:35] LABS: Anion Gap 11 mmol/L; Blood Urea Nitrogen 34 mg/dL (9-20); Calcium 7.5 mg/dL (8.4-10.2); Carbon Dioxide 23 mmol/L (22-30); Chloride 101 mmol/L (98-107); Glucose 108 mg/dL (74-99); Magnesium 2.1 mg/dL (1.6-2.3); Potassium 3.1 mmol/L (3.5-5.1); Sodium 135 mmol/L (137-145)
[2023-09-29 04:37] LABS: ABG Base Excess -0.3 mmol/L; ABG HCO3 26 mmol/L (21-25); ABG Oxygen Saturation 98.3 % (94-97); ABG PCO2 48 mmHg (35-45); ABG PH 7.34 (7.35-7.45); ABG PO2 106 mmHg (83-108); ABG TCO2 27 mmol/L (19-24)
[2023-09-29 04:41] LABS: African American GFR (CKD) 26 (>60 ml/min/1.73 sqM); Non-African American GFR(CKD) 22 (>60 ml/min/1.73 sqM)
[2023-09-29 05:01] LABS: Allen Test Performed? no
[2023-09-29 05:27] LABS: Glucose,Whole Blood 127 mg/dL (70-110)
--- NOTE | 2023-09-29 07:43 | XR ---
EXAMINATION TYPE: XR chest 1V portable DATE OF EXAM: 09/29/2023 COMPARISON: 09/28/2023 HISTORY: SOB, Follow Up FINDINGS: Indwelling tubes and catheters are unchanged. No change in bibasilar opacities. Stable appearance of the cardio-mediastinal structures at this time. IMPRESSION: 1. Stable portable chest. Clinical correlation and follow up until resolution is recommended.
[2023-09-29] MEDS: POTASSIUM BICARBONATE/CIT AC 20 MEQ TABLET.EFF PEG/G-TUBE ONE (09:47)
--- NOTE | 2023-09-29 10:44 | P.PN ---
Subjective Principal diagnosis: Progress note dated 09/22/23 67-year-old male with past medical history significant for diabetes mellitus, prior toe amputations, hyperlipidemia, coronary artery disease with previous stents, and seizure disorder who presented to the ED on 09/06 with DKA unresponsive intubated and mechanically ventilated. Patient was admitted to the ICU for DKA, respiratory failure, and MARIANO. He remained in the ICU until 09/12 when he was transferred to the floors. On 09/18 he was scheduled for colonoscopy as well as PEG placement on 09/21. On 09/18 his O2 requirement increased from 2-6L NC. A Team was called and he was reintubated and transferred to the ICU. Patient was evaluated today on 09/18/2023, patient is about the same, continues to have some discomfort in his back and in his rectal area, supposed to have colonoscopy tomorrow. Eliquis remains on hold. Patient has no active pulmonary issues. WBC count is 8.6 hemoglobin 10.2 electrolytes are normal renal profile is normal The patient was seen today September 19, 2023 in follow-up on the selective care unit. Today he is found to be weak and obtunded. He is requiring more oxygen currently at 6 L high flow nasal cannula. A rapid response team was called on him. Chest x-ray and ABGs reviewed. He will be transferred to the intensive care unit. Serial blood gases on 100% FiO2 revealed a P O2 of 66, pCO2 of 49 and a pH of 7.32. White count 9.9. Hemoglobin 11.3. Platelets 233. Sodium 143. Potassium 4.5. Bicarb 26. BUN 17. Creatinine 0.87. Glucose 151. The patient has been having concerns of rectal pain and possible rectal mass and the plan was for colonoscopy. However the patient was having ongoing issues with difficulty in swallowing and was being considered for PEG tube placement. This was prior to his change in clinical status. X-ray did reveal a right lower lobe infiltrate with minimal right pleural effusion. Patient was evaluated today on 09/20/2023, patient developed a worsening pulmonary status yesterday, required transfer to the ICU intubation mechanical ventilation. I saw the patient yesterday, he underwent bronchoscopy, lines were placed and the patient, and he was kept on mechanical ventilation overnight. Patient is now on assist-control rate of 24 tidal volume 450 FiO2 was 80% earlier but is now 50%, and PEEP of 10 ABG showed a pO2 of 92 pCO2 47 pH of 7.30 his urine output is 5 to 20 cc/h, however his CVP is low and the patient will require more fluid boluses if no improvement after fluid boluses, then we will give the patient Lasix. In the meantime the patient is requiring propofol at 35 mg/kg/min norepinephrine at 0.06 mg/kg/min IV fluid running at 100 cc/h and the patient is also receiving vital HP at 10 cc/h antibiotics rosario he is receiving Flagyl and Zosyn. Chest x-ray continues to show bilateral infiltrates consistent with most likely aspiration pneumonia. Patient was seen by infectious disease and he is now on Flagyl and ZosynWBC count today is 13 hemoglobin 9.3 basic metabolic profile is normal renal profile showed a BUN of 29 creatinine 1.45 Patient was evaluated today on 09/21/2023, remains in the ICU, intubated and mechanically ventilated. Patient is on assist-control rate of 24 tidal volume 450 FiO2 50% and PEEP of 10 ABG showed a pO2 of 79 pCO2 43 pH of 7.26, apparently the patient developed some metabolic acidosis associated with acute kidney injury, and I have recommended 1 amp of bicarb to be given and sodium bicarb to be given orally and I also recommended nephrology evaluation on this patient as his renal status seems to be getting worse and the patient is having less and less urine output. CVP is around 7 patient will receive more fluids today, may consider Lasix depending on the response to fluid boluses. Urine output is extremely low. And again his renal functioning is getting worse. Patient remains on propofol at 50 mcg/kg/min he is also on norepinephrine at 0.03 mcg/kg/min, patient is receiving Glucerna 1.5/enteral feeding, patient remains on Lovenox 80 mg SQ twice daily, he is also on Zosyn and Flagyl. Chest x-ray continues to show bilateral infiltrates. Improved compared to his initial chest x-ray but nonetheless considered to be significant airspace disease bilaterally. Microbiology from the bronchial washing/lavage, showed mostly C andida, Gram stains and cultures from previous sputum from 09/08/2023 showed E. coli Staph aureus and Streptococcus agalactiae Patient was evaluated today on 09/22/2023, remains in the ICU, intubated and mechanically ventilated. He is on propofol 25 mcg/kg/min, Levophed 0.09 mcg/kg/min, and .9 NS IVF at 10cc/h patient is on assist-control rate of 24 tidal volume 450 FiO2 50% and PEEP of 10. ABG shows pH 7.24 pCO2 42 and pO2 of 97. Patient exhibits normal anion gap metabolic acidosis. Sodium 145, potassium 4.4, chloride 119, CO2 16, BUN 46, creatinine 2.98, glucose 178, and albumin 1.7. He received Sodium bicarb orally, 1amp IVP bicarb, and 80 mg Lasix as per nephrology's recommendation due to patient's poor urine output despite fluids and Lasix. Renal ultrasound showed no hydronephrosis and a left renal cyst. X-ray shows worsening bibasilar infiltrates. Bronchial washings showed Lisa albicans. He is on Zosyn 25ml/hr. Patient was evaluated today on 09/23/2023, remains in ICU, intubated and mechanically ventilated. He is on propofol 50 mcg/kg/min, Levophed 0.06 mcg/kg/min, and 0.9 normal saline IV fluids at 10 cc/h. Patient is on assist- control rate of 24 tidal volume 450 FiO2 50% and PEEP of 10. ABG shows pH of 7.32 pCO2 of 44 and pO2 of 70. Sodium is 143, potassium 4.2, chloride 113, CO2 21, BUN 42, creatinine 3.07, glucose 164, cortisol 11.7 and TSH was 0.618. U rine output remains poor despite fluid restriction and Lasix. Nephrology has discontinued the Lasix drip of 10 mcg/h and placed the patient on 80 mg IVP twice daily. Patient was dialyzed 1L yesterday and is currently undergoing dialysis with a goal of 2.5 L and tolerating well. Patient has FMS in place. He is receiving Glucerna tube feeds at a rate of 35/h. Chest x-ray today remains unchanged shows bibasilar infiltrates with a small right pleural effusion. Patient was evaluated today on 09/24/2023, remains in ICU, intubated and mechanically ventilated. Overnight he was on propofol at a rate of 40 mcg/kg/min, Levophed 0.03 mcg/kg/min, and 0.9 normal saline at 10/h. Patient is on assist-control rate of 24, tidal volume 450, FiO2 50%, PEEP of 10. ABG shows pO2 of 78, CO2 43, pH 7.35. Sodium is 139, potassium 4.4, chloride 108, CO2 21, BUN 40, creatinine 3.11, glucose 194. Blood glucose levels have been ranging in the 200s over the last 24 hours. Urine output remains poor despite fluid restriction and Lasix 80 mg twice daily. Patient was dialyzed 2.9 L yesterday and is undergoing dialysis today with a goal of 3 L. Daily interruption of sedation was unsuccessful yesterday: Patient became asynchronous with the vent, was not arousable, and did not follow commands so SBT was not attempted. Patient has FMS in place. He is receiving Glucerna feeds at a rate of 35/hour. Chest x-ray shows bibasilar infiltrates with slight improvement. Patient has had mild low-grade fevers with a Tmax of 101.3. White count has increased to 13.4 from 9.1 yesterday. Blood culture from 09/19 shows no growth after 72 hours. Procalcitonin yesterday was 5.47. He remains on Zosyn. This morning propofol and Levophed were held for daily interruption of sedation and possible SBT today. Patient was evaluated today on 09/25/2023, remains in ICU, intubated and mechanically ventilated. He is on propofol at a rate of 40 mcg/kg/min, Levophed 0.03 mcg/kg/min, and 0.9 normal saline at 10/h. Patient is on assist control rate of 24, tidal volume 450, FiO2 50%, PEEP of 10. ABG shows PaO2 91, CO2 44, pH 7.4. Sodium is 136, potassium 3.8 which has been repleted, chloride 105, CO2 25, BUN 37, creatinine 2.94, glucose 161. Urine output remains poor despite fluid restriction and Lasix 80 mg twice daily. Patient was dialyzed 3 L yesterday and is undergoing dialysis today. Daily interruption of sedation was unsuccessful yesterday. Patient was not opening his eyes or moving his extremi ties, unable to follow commands, and asynchronous with the vent, so SBT was not attempted. Patient has FMS in place. He is receiving Glucerna feeds at a rate of 35 an hour. Chest x-ray shows worsening bibasilar consolidations. Patient had low-grade fever of 99.7. White count has decreased from 13.4 yesterday to 10.8 today. Blood culture, urine culture, and sputum culture have all been sent to the lab. Daily interruption of sedation & SBT as tolerated today. Attempts to contact family regarding possible trach and PEG are still ongoing due to patient's multiple unsuccessful attempts to wean off the ventilator. Patient was evaluated today on 09/26/2023, remains in ICU, intubated and mec hanically ventilated. Propofol & Levophed have been held since yesterday at 1pm. He is on 0.9NS at KVO. Patient is on assist control rate of 24, tidal volume 450, FiO2 50%, PEEP of 10. ABG shows PaO2 71, CO2 41, pH 7.48. Sodium is 133, potassium 4.1, chloride 99, CO2 28, BUN 35, creatinine 2.76, glucose 187. Urine output remains poor despite fluid restriction and Lasix 80 mg twice daily. Patient was dialyzed 3 L yesterday. Despite being off sedation, patient remains obtunded. He only responds mildly to sternal rubs Patient has FMS in place. Overnight at about 2:40am, the patient developed bright red liquid stool, BP was 118/49 with a map of 67 and a heart rate of 86. Hemoglobin was 8.3. As per primary team. OG was changed to LIS and hemoglobin was repeated. Lovenox & Glucerna tube feeds was held due to scheduled trach & PEG today. Hemoglobin this morning was 7.7. He received 1 unit and 20mg Ddavp given to optimize him for surgery today. White count is 11.4 today. Urine culture showed growth of yeasts and Eraxis was started as per ID's recommendations. Patient was evaluated today on 09/27/2023, remains in ICU, status post trach and PEG yesterday. Tracheostomy tube is leaking but NG tube looks clean dry and intact. Levophed is running at 9.7 mcg/min and 0.9 normal saline at 10/h. Patient is on assist-control rate of 24 tidal volume 450 FiO2 60% PEEP of 10. ABG shows pO2 from 28 pCO2 45 and pH 7.34. Sodium 134, potassium 4.5, chloride 101, CO2 21, BUN 29, creatinine 2.47, and glucose 165. Urine output remains poor despite fluid restriction and Lasix 80 mg twice daily. Patient will be dialyzed today with a goal of 1 L. Patient has a FMS in place. Overnight the patient has had consistently bloody stools and put out about 900 overnight. Tube feeds are being held due to GI bleeding. Surgery recommends RBC tagged study. Hemoglobin was 7.5 this morning and he received his fifth unit of blood. White count is 20 today. Urine culture shows growth of yeasts. Patient remains on Eraxis and Zosyn. Progress note dated September 28, 2023. 67-year-old male who is still in the intensive care unit, on the mechanical ventilator. Vent settings include volume assist-control, rate 24, tidal volume 450, FiO2 60%, to be reduced down to 50%, PEEP of 10. Blood gases show pO2 147, pCO2 42, and a pH of 7.42. The patient is getting saline at 10 cc an hour, no repinephrine has been weaned off. He is scheduled for colonoscopy tomorrow, September 28. Since being here in the unit, and in the hospital, he is received a total of 7 units of packed red blood cells. His red blood cell study, was negative. Head CT was negative. He had hemodialysis yesterday, and 1 L was removed. Current labs include a white count 14.1, hemoglobin 7.4, hematocrit 22.3, and a platelet count of 270,000. Sodium 133, potassium 3.8, chlorides 102, CO2 23, BUN 29, creatinine 2.45. Glucose is 135. Albumin is 1.8. Chest x-ray shows bibasilar infiltrates or opacities. Patient was evaluated today on 09/29/2023, remains in ICU, on mechanical ventilator. Vent settings are assist-control, rate 24, tidal volume 450, FiO2 50%, PEEP of 10. Blood gases show pO2 106, CO2 pCO2 48, pH 7.34. Patient remains on 0.9% saline at 10 cc an hour, norepinephrine remains off. He is scheduled for colonoscopy & hemodialysis today. Since being on the unit he has received a total of 7 units of packed red blood cells. Tagged RBC study was negative. Head CT done on 09/27/2023 was unremarkable. Current labs include a white count of 12.1, hemoglobin 9.2, and platelets 184,000. Sodium 135, potassium 3.1 repleted, chloride 101, CO2 23, BUN 34, Creatinine 2.8, and glucose 108. Chest x-ray shows stable bibasilar infiltrates. Objective - Vital Signs Vital signs: Vital Signs Temp 96.8 F L 09/29/23 09:00 Pulse 66 09/29/23 10:00 Resp 26 H 09/29/23 10:00 BP 120/66 09/29/23 10:00 Pulse Ox 99 09/29/23 10:00 FiO2 50 09/29/23 09:00 Intake & Output 09/28/23 09/29/23 09/29/23 18:59 06:59 18:59 Intake Total 5379.215 269 198 Output Total 25 530 5 Balance 5354.215 -261 193 Weight 112.1 kg Intake: IV 556 269 168 0.9 sodium chloride 120 130 50 Anidulafungin 100 mg In 112 Sodium Chloride 0.9% 100 ml @ 84 mls/hr IVPB DAILY [facility] Rx#:[id number] Piperacillin-Tazobactam 3 400 100 .375 gm In Sodium Chloride 0.9% 100 ml @ 25 mls/hr IVPB Q8HR [facility] Rx# :[id number] Pressure Bag 36 39 6 Intake, IV Titration 103.215 Amount Anidulafungin 100 mg In 100 Sodium Chloride 0.9% 100 ml @ 84 mls/hr IVPB DAILY [facility] Rx#:[id number] Norepinephrine 8 mg In 3.215 Sodium Chloride 0.9% 250 ml @ 0.1 MCG/KG/MIN 18. 731 mls/hr IV .[id number] [facility] Rx#:[id number] Blood Product 620 Rc As-1 Unit 310 [id number] Rc As-1 Unit 310 [id number] Other 4100 30 Rc As-1 Unit 50 [id number] Rc As-1 Unit 50 [id number] Output: Urine 0 30 5 Stool 25 500 Other: Voiding Method Indwelling Catheter Indwelling Catheter # Bowel Movements 1 ABP, PAP, CO, CI - Last Documented Arterial Blood Pressure 127/48 - Exam GENERAL EXAM: 67-year-old white male with tracheostomy & PEG tube, not in distress, generally edematous in all 4 extremities HEAD: Normocephalic and atraumatic EYES: Within normal NOSE: Clear with pink turbinates. THROAT: No erythema or exudates. Dry mucous membranes. NECK: No masses, no JVD. L Subclavian central line is noted. CHEST: No chest wall deformity. LUNGS: Good breath sound bilaterally mostly diminished at the bases no crackles rhonchi or wheezes CVS: S1 and S2 normal with no soft systolic murmur, regular rhythm. No extra heart sounds ABDOMEN: Abdomen flat, diminished bowel sounds, no hepatosplenomegaly, no guarding or rigidity. SKIN: No rashes CENTRAL NERVOUS SYSTEM: opens eyes, but does not track or follow commands Theatric: Could not assess EXTREMITIES: no clubbing, no cyanosis, trace bipedal edema. - Labs CBC & Chem 7: 09/29/23 04:09 09/29/23 04:09 Labs: Abnormal Lab Results - Last 24 Hours (Table) 09/26/23 09/28/23 09/28/23 Range/Units 04:32 11:56 14:00 WBC 14.2 H (3.8-10.6) k/uL RBC 2.99 L (4.30-5.90) m/uL Hgb 8.9 L D (13.0-17.5) gm/dL Hct 26.9 L (39.0-53.0) % RDW 16.1 H (11.5-15.5) % Neutrophils # (1.3-7.7) k/uL Lymphocytes # (1.0-4.8) k/uL ABG pH (7.35-7.45) ABG pCO2 (35-45) mmHg ABG HCO3 (21-25) mmol/L ABG Total CO2 (19-24) mmol/L ABG O2 Saturation (94-97) % Sodium (137-145) mmol/L Potassium (3.5-5.1) mmol/L BUN (9-20) mg/dL Creatinine (0.66-1.25) mg/dL Glucose (74-99) mg/dL POC Glucose (mg/dL) 119 H (70-110) mg/dL Calcium (8.4-10.2) mg/dL Crossmatch See Detail 09/28/23 09/28/23 09/29/23 Range/Units 17:49 21:56 04:09 WBC 12.5 H 12.1 H (3.8-10.6) k/uL RBC 3.04 L 3.23 L (4.30-5.90) m/uL Hgb 8.8 L 9.2 L (13.0-17.5) gm/dL Hct 26.8 L 28.6 L (39.0-53.0) % RDW 15.6 H 15.8 H (11.5-15.5) % Neutrophils # 10.8 H (1.3-7.7) k/uL Lymphocytes # 0.6 L (1.0-4.8) k/uL ABG pH (7.35-7.45) ABG pCO2 (35-45) mmHg ABG HCO3 (21-25) mmol/L ABG Total CO2 (19-24) mmol/L ABG O2 Saturation (94-97) % Sodium (137-145) mmol/L Potassium (3.5-5.1) mmol/L BUN (9-20) mg/dL Creatinine (0.66-1.25) mg/dL Glucose (74-99) mg/dL POC Glucose (mg/dL) 128 H (70-110) mg/dL Calcium (8.4-10.2) mg/dL Crossmatch 09/29/23 09/29/23 09/29/23 Range/Units 04:09 04:35 05:25 WBC (3.8-10.6) k/uL RBC (4.30-5.90) m/uL Hgb (13.0-17.5) gm/dL Hct (39.0-53.0) % RDW (11.5-15.5) % Neutrophils # (1.3-7.7) k/uL Lymphocytes # (1.0-4.8) k/uL ABG pH 7.34 L (7.35-7.45) ABG pCO2 48 H (35-45) mmHg ABG HCO3 26 H (21-25) mmol/L ABG Total CO2 27 H (19-24) mmol/L ABG O2 Saturation 98.3 H (94-97) % Sodium 135 L (137-145) mmol/L Potassium 3.1 L (3.5-5.1) mmol/L BUN 34 H (9-20) mg/dL Creatinine 2.80 H (0.66-1.25) mg/dL Glucose 108 H (74-99) mg/dL POC Glucose (mg/dL) 127 H (70-110) mg/dL Calcium 7.5 L (8.4-10.2) mg/dL Crossmatch Assessment and Plan Assessment: Acute hypoxic respiratory failure secondary to aspiration pneumonia s/p trach on 09/25 Acute kidney injury Malnutrition with severe hypoalbuminemia s/p PEG tube 09/26 Anasarca secondary to hypoalbuminemia Candiduria Unspecified bleeding source Hg 7.5 s/p 7 units RBCs Normal anion gap metabolic acidosis resolved Acute DKA resolved Hx of Type 2 DM Hx of B/L great toe amputations HX of Hyperlipidemia Hx of CAD with previous stent Hx of seizure disorder Plan Continue ventilator support Continue IVF at 10/hr Discontinued Lasix due to oliguria Discontinued Zosyn HD today as tolerated Colonoscopy today Continue GI and DVT prophylaxis Continue Levemir insulin to 20 units for better glucose control Continue sliding scale NovoLog insulin as per protocol Continue Eraxis 100mg q24hrs Patient is critically ill, prognosis is guarded Patient is critically ill and critical care time is over 30 Will continue to follow Time with Patient: Greater than 30
[2023-09-29 11:50] LABS: Glucose,Whole Blood 137 mg/dL (70-110)
--- NOTE | 2023-09-29 12:42 | P.PN ---
Subjective patient is seen for follow-up for acute kidney injury. Started hemodialysis on 09/22/2023. Patient remains oliguric. Scheduled for hemodialysis today. Also scheduled for colonoscopy this afternoon. Objective - Vital Signs Vital signs: Vital Signs Temp 96.9 F L 09/29/23 12:00 Pulse 69 09/29/23 12:00 Resp 20 09/29/23 12:00 BP 116/62 09/29/23 12:00 Pulse Ox 97 09/29/23 12:00 FiO2 50 09/29/23 12:00 Intake & Output 09/28/23 09/29/23 09/29/23 18:59 06:59 18:59 Intake Total 5379.215 269 244 Output Total 25 530 5 Balance 5354.215 -261 239 Weight 112.1 kg Intake: IV 556 269 214 0.9 sodium chloride 120 130 90 Anidulafungin 100 mg In 112 Sodium Chloride 0.9% 100 ml @ 84 mls/hr IVPB DAILY [facility] Rx#:[id number] Piperacillin-Tazobactam 3 400 100 .375 gm In Sodium Chloride 0.9% 100 ml @ 25 mls/hr IVPB Q8HR [facility] Rx# :[id number] Pressure Bag 36 39 12 Intake, IV Titration 103.215 Amount Anidulafungin 100 mg In 100 Sodium Chloride 0.9% 100 ml @ 84 mls/hr IVPB DAILY [facility] Rx#:[id number] Norepinephrine 8 mg In 3.215 Sodium Chloride 0.9% 250 ml @ 0.1 MCG/KG/MIN 18. 731 mls/hr IV .[id number] [facility] Rx#:[id number] Blood Product 620 Rc As-1 Unit 310 [id number] Rc As-1 Unit 310 [id number] Other 4100 30 Rc As-1 Unit 50 [id number] Rc As-1 Unit 50 [id number] Output: Urine 0 30 5 Stool 25 500 Other: Voiding Method Indwelling Catheter Indwelling Catheter # Bowel Movements 1 ABP, PAP, CO, CI - Last Documented Arterial Blood Pressure 139/57 - Exam Patient is awake. Status post trach. Patient remains on the vent. Examination of the heart S1 and S2 Examination of the lungs bilateral breath sounds are heard Abdomen is soft Examination lower extremity shows edema 2+ bilaterally - Labs CBC & Chem 7: 09/29/23 04:09 09/29/23 04:09 Labs: Abnormal Lab Results - Last 24 Hours (Table) 09/28/23 09/28/23 09/28/23 Range/Units 14:00 17:49 21:56 WBC 14.2 H 12.5 H (3.8-10.6) k/uL RBC 2.99 L 3.04 L (4.30-5.90) m/uL Hgb 8.9 L D 8.8 L (13.0-17.5) gm/dL Hct 26.9 L 26.8 L (39.0-53.0) % RDW 16.1 H 15.6 H (11.5-15.5) % Neutrophils # (1.3-7.7) k/uL Lymphocytes # (1.0-4.8) k/uL ABG pH (7.35-7.45) ABG pCO2 (35-45) mmHg ABG HCO3 (21-25) mmol/L ABG Total CO2 (19-24) mmol/L ABG O2 Saturation (94-97) % Sodium (137-145) mmol/L Potassium (3.5-5.1) mmol/L BUN (9-20) mg/dL Creatinine (0.66-1.25) mg/dL Glucose (74-99) mg/dL POC Glucose (mg/dL) 128 H (70-110) mg/dL Calcium (8.4-10.2) mg/dL 09/29/23 09/29/23 09/29/23 Range/Units 04:09 04:09 04:35 WBC 12.1 H (3.8-10.6) k/uL RBC 3.23 L (4.30-5.90) m/uL Hgb 9.2 L (13.0-17.5) gm/dL Hct 28.6 L (39.0-53.0) % RDW 15.8 H (11.5-15.5) % Neutrophils # 10.8 H (1.3-7.7) k/uL Lymphocytes # 0.6 L (1.0-4.8) k/uL ABG pH 7.34 L (7.35-7.45) ABG pCO2 48 H (35-45) mmHg ABG HCO3 26 H (21-25) mmol/L ABG Total CO2 27 H (19-24) mmol/L ABG O2 Saturation 98.3 H (94-97) % Sodium 135 L (137-145) mmol/L Potassium 3.1 L (3.5-5.1) mmol/L BUN 34 H (9-20) mg/dL Creatinine 2.80 H (0.66-1.25) mg/dL Glucose 108 H (74-99) mg/dL POC Glucose (mg/dL) (70-110) mg/dL Calcium 7.5 L (8.4-10.2) mg/dL 09/29/23 09/29/23 Range/Units 05:25 11:48 WBC (3.8-10.6) k/uL RBC (4.30-5.90) m/uL Hgb (13.0-17.5) gm/dL Hct (39.0-53.0) % RDW (11.5-15.5) % Neutrophils # (1.3-7.7) k/uL Lymphocytes # (1.0-4.8) k/uL ABG pH (7.35-7.45) ABG pCO2 (35-45) mmHg ABG HCO3 (21-25) mmol/L ABG Total CO2 (19-24) mmol/L ABG O2 Saturation (94-97) % Sodium (137-145) mmol/L Potassium (3.5-5.1) mmol/L BUN (9-20) mg/dL Creatinine (0.66-1.25) mg/dL Glucose (74-99) mg/dL POC Glucose (mg/dL) 127 H 137 H (70-110) mg/dL Calcium (8.4-10.2) mg/dL Assessment and Plan Assessment: 1. Acute kidney injury secondary to ATN secondary to hypotension requiring vasopressor support. Baseline creatinine near 1. Oliguric. No hydronephrosis noted on kidney ultrasound. Started on hemodialysis September 21 to 2023 via temporary catheter dialysis catheter. 2. Septic shock secondary to pneumonia on antibiotics. ID following. 3. Metabolic acidosis secondary to acute kidney injury and IV fluids. Improved. 4. Acute hypoxic respiratory failure secondary to pneumonia. Intubated. 5. DKA on presentation status post insulin drip. 6. Hyperphosphatemia secondary to acute kidney injury. Phosphorus level 5.5 dated September 22, 2023. 7. Volume overload. Plan: hemodialysis today and repeat in a.m.
[2023-09-29] MEDS ORDERED: PROPOFOL 10 MG/ML 20 ML VIAL IV ONE (13:20)
--- NOTE | 2023-09-29 13:26 | P.PN ---
Subjective Progress Note Date: 09/29/23 CHIEF COMPLAINT: rectal pain HISTORY OF PRESENT ILLNESS: 67-year-old male admitted to the hospital for DKA. patient is status post tracheostomy and PEG tube placement. Patient scheduled for colonoscopy today for rectal bleeding. Hgb 8.8 up to 9.2 PHYSICAL EXAM: VITAL SIGNS: Reviewed GENERAL: no acute distress. Neck: Clearish drainage around trach site ABDOMEN: Soft. Nondistended. PEG tube site clean dry and intact ASSESSMENT: 1. Acute hypoxic respiratory failure secondary to aspiration pneumonia. status post trach 2. Severe protein calorie malnutrition 3. GI bleed and Wall thickening of the rectum and sigmoid colon noted on CT PLAN: -Patient scheduled for colonoscopy today with Dr. Weeks Physician Director Of Resource Development note has been reviewed by physician. Signing provider agrees with the documented findings, assessment, and plan of care. Objective - Vital Signs Vital signs: Vital Signs Temp 96.8 F L 09/29/23 09:00 Pulse 70 09/29/23 11:25 Resp 17 09/29/23 11:00 BP 115/67 09/29/23 11:00 Pulse Ox 96 09/29/23 11:00 FiO2 50 09/29/23 11:21 Intake & Output 09/28/23 09/29/23 09/29/23 18:59 06:59 18:59 Intake Total 5379.215 269 221 Output Total 25 530 5 Balance 5354.215 -261 216 Weight 112.1 kg Intake: IV 556 269 191 0.9 sodium chloride 120 130 70 Anidulafungin 100 mg In 112 Sodium Chloride 0.9% 100 ml @ 84 mls/hr IVPB DAILY [facility] Rx#:[id number] Piperacillin-Tazobactam 3 400 100 .375 gm In Sodium Chloride 0.9% 100 ml @ 25 mls/hr IVPB Q8HR [facility] Rx# :[id number] Pressure Bag 36 39 9 Intake, IV Titration 103.215 Amount Anidulafungin 100 mg In 100 Sodium Chloride 0.9% 100 ml @ 84 mls/hr IVPB DAILY [facility] Rx#:[id number] Norepinephrine 8 mg In 3.215 Sodium Chloride 0.9% 250 ml @ 0.1 MCG/KG/MIN 18. 731 mls/hr IV .[id number] [facility] Rx#:[id number] Blood Product 620 Rc As-1 Unit 310 [id number] Rc As-1 Unit 310 [id number] Other 4100 30 Rc As-1 Unit 50 [id number] Rc As-1 Unit 50 [id number] Output: Urine 0 30 5 Stool 25 500 Other: Voiding Method Indwelling Catheter Indwelling Catheter # Bowel Movements 1 ABP, PAP, CO, CI - Last Documented Arterial Blood Pressure 134/56 - Labs CBC & Chem 7: 09/29/23 04:09 09/29/23 04:09 Labs: Abnormal Lab Results - Last 24 Hours (Table) 09/28/23 09/28/23 09/28/23 Range/Units 11:56 14:00 17:49 WBC 14.2 H (3.8-10.6) k/uL RBC 2.99 L (4.30-5.90) m/uL Hgb 8.9 L D (13.0-17.5) gm/dL Hct 26.9 L (39.0-53.0) % RDW 16.1 H (11.5-15.5) % Neutrophils # (1.3-7.7) k/uL Lymphocytes # (1.0-4.8) k/uL ABG pH (7.35-7.45) ABG pCO2 (35-45) mmHg ABG HCO3 (21-25) mmol/L ABG Total CO2 (19-24) mmol/L ABG O2 Saturation (94-97) % Sodium (137-145) mmol/L Potassium (3.5-5.1) mmol/L BUN (9-20) mg/dL Creatinine (0.66-1.25) mg/dL Glucose (74-99) mg/dL POC Glucose (mg/dL) 119 H 128 H (70-110) mg/dL Calcium (8.4-10.2) mg/dL 09/28/23 09/29/23 09/29/23 Range/Units 21:56 04:09 04:09 WBC 12.5 H 12.1 H (3.8-10.6) k/uL RBC 3.04 L 3.23 L (4.30-5.90) m/uL Hgb 8.8 L 9.2 L (13.0-17.5) gm/dL Hct 26.8 L 28.6 L (39.0-53.0) % RDW 15.6 H 15.8 H (11.5-15.5) % Neutrophils # 10.8 H (1.3-7.7) k/uL Lymphocytes # 0.6 L (1.0-4.8) k/uL ABG pH (7.35-7.45) ABG pCO2 (35-45) mmHg ABG HCO3 (21-25) mmol/L ABG Total CO2 (19-24) mmol/L ABG O2 Saturation (94-97) % Sodium 135 L (137-145) mmol/L Potassium 3.1 L (3.5-5.1) mmol/L BUN 34 H (9-20) mg/dL Creatinine 2.80 H (0.66-1.25) mg/dL Glucose 108 H (74-99) mg/dL POC Glucose (mg/dL) (70-110) mg/dL Calcium 7.5 L (8.4-10.2) mg/dL 09/29/23 09/29/23 Range/Units 04:35 05:25 WBC (3.8-10.6) k/uL RBC (4.30-5.90) m/uL Hgb (13.0-17.5) gm/dL Hct (39.0-53.0) % RDW (11.5-15.5) % Neutrophils # (1.3-7.7) k/uL Lymphocytes # (1.0-4.8) k/uL ABG pH 7.34 L (7.35-7.45) ABG pCO2 48 H (35-45) mmHg ABG HCO3 26 H (21-25) mmol/L ABG Total CO2 27 H (19-24) mmol/L ABG O2 Saturation 98.3 H (94-97) % Sodium (137-145) mmol/L Potassium (3.5-5.1) mmol/L BUN (9-20) mg/dL Creatinine (0.66-1.25) mg/dL Glucose (74-99) mg/dL POC Glucose (mg/dL) 127 H (70-110) mg/dL Calcium (8.4-10.2) mg/dL
--- NOTE | 2023-09-29 13:48 | P.OP ---
Date of Procedure: 09/29/23 Preoperative Diagnosis: GI bleed Postoperative Diagnosis: Normal colon Procedure(s) Performed: Colonoscopy Anesthesia: MAC Surgeon: Danilo Weeks Pathology: none sent Condition: stable Disposition: PACU Description of Procedure: The patient was placed on the endoscopy table in the lateral position. He received IV sedation. His fecal management system was removed. The flexible colonoscope was then placed patient anus and passed throughout the colon. Patient had a large amount of liquid brown stool. There is no blood seen in the colon. The ileocecal valve was visualized. The cecum ascending and transverse colon appeared normal however there is limited view due to the large amount of liquid stool. Once again there is no blood seen in the colon. Scope was withdrawn further in the distal descending colon descending colon and sigmoid colon appeared normal. However the view was limited due to the large amount of liquid brown stool. Scope for back to rectum this appeared normal. Scope withdrawn the patient. There is no evidence of any obvious colonic source of GI bleed.
--- NOTE | 2023-09-29 15:45 | P.PN ---
Subjective Progress Note Date: 09/29/23 H&P Date: 09/08/23 Chief Complaint: DKA, hypotension, shock This is a 67-year-old gentleman with past medical history significant for diabetes mellitus, bilateral great toe amputations, CAD, AZ, seizure disorder,intubated in the field, transferred from [place] [facility], admitted with significant DKA, hypotension, shock and multiple other medical issues. C urrently in the ICU, remains vent dependent on 35% FiO2 +5 of PEEP. Maintained on Levophed, bicarb, vasopressin, amiodarone and insulin drips as well as D5.45 NS IV fluids. Requiring Flores hugger. Patient has not seen PCP since June 2022, had proceeded to live at [facility] in [place]. ICU staff reports significant other reported that patient became unhappy living at the [facility], came to live with her, patient was sick for approximately 4 days and she discovered him unresponsive on her couch. Unresponsive with the exception of winces at noxious stimuli, no spontaneous eye-opening. Brain CT reported no acute intracranial hemorrhage or midline shift, mild diffuse age- related cerebral atrophy and moderate probable chronic small vessel ischemic change redemonstrated. ABGs on arrival reported pH 7.04, pCO2 25, pO2 204, bicarb 7, total CO2 8, O2 sat 99.7, base excess -22.6 on 35% FiO2. chest x-ray reported lungs clear, no infiltrates, cardiac silhouette size within normal limits. Outside toxicology reported as negative;serum alcohol less than 10. received 3 L crystalloids, 1 L saline bolus, 2 g bicarb in the ER with pressors initiated. Procalcitonin 0.29, WBC count 8.0, hemoglobin 14.4, platelets 127,Sodium 143,151, potassium 5.2, 3.2, chloride 115,124, bicarb less than 5, 18, anion gap unmeasurable, 9, BUN 134, 110, creatinine 4.29, 2.76, glucose 910, 332. Lactic 1.1. LFTs WNL. Ammonia less than 9. CPK 882, 1068. Troponin 0.084. NT BNP 2720. EKG reported normal sinus rhythm. UA positive for hyaline casts, ketones ,glucose, and protein. Negative for nitrates. No seizure activity reported. 09/09/2023 paroxysmal atrial fibrillation with RVR, maintained on amiodarone drip ,telemetry currently sinus rhythm. vasopressors weaned off late last night. Remains ventilator dependent with FiO2 35%/+5 of PEEP. Chest x-ray reported suspected underlying COPD, mild patchy medial basilar densities, likely atelectasis .echo reporting technically difficult study , moderately impaired LV function EF of 40-45%. Hemoglobin A1c 11.9. Continues on insulin drip. Anion gap 6, bicarb 17, blood sugars better controlled. Sodium 150, potassium 3.3 renal function improving, BUN 88, creatinine 1.9. Preliminary sputum culture growing gram-negative bacilli, presumptive Staph aureus, blood cultures in progress. Maxipime initiated. Brain CT repeated last night reporting no significant change from most recent prior CT. remains off of sedation, grimacin g to noxious stimuli. 09/10/2023 EEG reported abnormal, background slowing suggestive of severe ence phalopathy likely due to toxic metabolic derangement. Otherwise there is no focal slowing, epileptiform discharges or seizures on the EEG. Continues on Keppra -no seizure activity. Not following commands. Staff reports patient is opening eyes to voice. Grimaces to pain. Remains off pressors and vent dependent with FiO2 35%/+5 of PEEP. Chest x-ray pending. Tmax 100.3, normal WBC. Hemoglobin 11.4, platelets 49 . sputum culture reporting E. coli, Staphylococcus aureus/MSSA, strep agalactiae group B. Maintained on cefepime. Receiving IV fluid hydration of half-normal saline , sodium 152, chloride 128. renal function improving. bicarb 16, BUN 64, creatinine 1.46. On tube feeds of Glucerna ,blood sugars in the mid to low 200s, A1c 11.9. 09/15/2023 telemetry sinus rhythm. Continues on amiodarone, Farxiga. Anticoagulated on Eliquis. Confused this morning, alert and oriented to person, knows he is in the hospital but thinks he is in [place], [place]. Maintaining O2 sat of 94% on 2 L nasal cannula on cefepime and nebulized bronchodilators. Choking on applesauce during speech therapy's evaluation, modified barium swallow ordered. Blood sugars in the low 200s during the night, better controlled this morning, 132. Hemoglobin A1c 11.9. 09/16/2023 MBS results noted-speech therapy recommending ground meats, nectar liquids, no straw, liquids from cup, small bites and sips with direct supervision , sitting upright 90 degrees and ongoing speech therapy. O2 sats improved, 97% on 2 L nasal cannula. Maintained on cefepime as per ID, afebrile, normal WBC. Hemoglobin 10, platelets 146. Potassium 2.9-supplementation and magnesium level ordered. Blood sugars better controlled. Renal function stable. Telemetry sinus rhythm. PT pending. 09/17/2023 Maintained on cefepime.yesterday Ochoa catheter discontinued but patient developed urinary retention and Ochoa catheter reinserted .ongoing lower back and rectal pain. lumbar CT reported no evidence for spinal fracture, mo derate degeneration changes without evidence for significant spinal canal stenosis, moderate bilateral L5-S1 and L4-L5 neuroforaminal stenosis, bilateral lung consolidation possibly representing atelectasis with superimposed infection not excluded, trace right pleural effusion. Pelvis CT reporting circumferential wall thickening of the rectum/sigmoid colon , prominent mesenteric lymph nodes around the rectum also present direct visualization recommended to rule out mass, colonic diverticulosis, fat-containing right inguinal hernia, no evidence of fracture, mild to moderate bilateral hip osteoarthrosis and moderate degenerative changes of the spine. Vague historian, unsure of last colonoscopy. Denies nausea vomiting. Potassium 3.5-supplemented, renal function stable. 09/18/2023 continues to complain of back and rectal pain. Eliquis remains on hold, general surgery discussing colonoscopy for tomorrow. Renal function stable, Hemoglobin 10.2, platelets 193. Blood sugars controlled. 09/19/2023 Eliquis remains on hold. Patient initially was scheduled for colonoscopy today. patient developed increased difficulty swallowing, bowel prep and colonoscopy canceled by general surgery. General surgery scheduled patient for PEG tube placement for Friday. oxygen requirement increased from 2 to 6 L nasal cannula. Spotcheck reported O2 sat of 93% on 6 L nasal cannula. Chest x- ray from last night reported right lower lobe infiltrate, minimal right pleural effusion. As the morning progressed, respiratory status declined, BiPAP and ABGs ordered. Upon entering the room to apply BiPAP, patient unresponsive and A team called, intubated and transferred to ICU. 09/22/2023 remains vent dependent, FiO2 50%/+10 of PEEP. Chest x-ray reporting worsening bibasilar infiltrates. maintained on IV fluid hydration with saline at 100ml/hr, diprovan, Levophed and Lasix drips. Receiving tube feeds of Glucerna at goal via NG tube with minimal to no residuals. Worsening renal function, bic arb 16, BUN 46, creatinine 2.98. Renal ultrasound reported no evidence for hydronephrosis. bicarb as per nephrology. Vascular surgery consulted for temporary hemodialysis catheter. [facility] washings reporting Lisa albicans, continues on Zosyn, fevers resolved, WBC within normal limits. 09/23/2023 yesterday temporary hemodialysis catheter placed-right groin; received hemodialysis yesterday. Tolerated well. Vent dependent, FiO2 50%/+10. Maintained on diprovan, Levophed, Lasix drips and tube feeds via OG. Fecal management system present. Afebrile, WBC within normal limits, hemoglobin 8.2, creatinine 3.07. 09/24/2023 telemetry sinus rhythm. Sedation holiday attempted yesterday; staff reports patient became tachypneic, asynchronous with the vent, using accessory muscles. Remains vent dependent, FiO2 50%/+10 of PEEP. Maintained on propofol and Levophed drips. Lasix drip transition to IV push yesterday as per nephrology. Urine output decreased. FMS output decreased .hemodialysis yesterday, tolerated well and scheduled again for today. Continues on Zosyn, procalcitonin increased to 5.47. Suctioning thick creamy rivera sputum from ET tube. WBC 13.4, Tmax 101.3. 09/29/2023 maintained on Zosyn and Eraxis.status post tracheostomy and PEG tube placement .Vent dependent, FiO2 50%/+10 of PEEP. Chest x-ray reporting stable with no change in bibasilar opacities. Currently off of pressors and diprovan. rectal tube with scant red drainage, scheduled for colonoscopy today. Tube feeds on hold. hemoglobin 9.2, platelets 184. Afebrile, WBC 12.1. BUN 34, creatinine 2.8, bicarb 23, scheduled for hemodialysis today. Opens eyes to name. Objective - Vital Signs Vital signs: Vital Signs Temp 96.9 F L 09/29/23 12:00 Pulse 70 09/29/23 15:31 Resp 26 H 09/29/23 14:00 BP 118/64 09/29/23 14:00 Pulse Ox 98 09/29/23 14:00 FiO2 50 09/29/23 15:17 Intake & Output 09/28/23 09/29/23 09/29/23 18:59 06:59 18:59 Intake Total 5379.215 269 290 Output Total 25 530 10 Balance 5354.215 -261 280 Weight 112.1 kg 112.1 kg Intake: IV 556 269 260 0.9 sodium chloride 120 130 130 Anidulafungin 100 mg In 112 Sodium Chloride 0.9% 100 ml @ 84 mls/hr IVPB DAILY [facility] Rx#:[id number] Piperacillin-Tazobactam 3 400 100 .375 gm In Sodium Chloride 0.9% 100 ml @ 25 mls/hr IVPB Q8HR [facility] Rx# :[id number] Pressure Bag 36 39 18 Intake, IV Titration 103.215 Amount Anidulafungin 100 mg In 100 Sodium Chloride 0.9% 100 ml @ 84 mls/hr IVPB DAILY [facility] Rx#:[id number] Norepinephrine 8 mg In 3.215 Sodium Chloride 0.9% 250 ml @ 0.1 MCG/KG/MIN 18. 731 mls/hr IV .[id number] [facility] Rx#:[id number] Blood Product 620 Rc As-1 Unit 310 [id number] Rc As-1 Unit 310 [id number] Other 4100 30 Rc As-1 Unit 50 [id number] Rc As-1 Unit 50 [id number] Output: Urine 0 30 10 Stool 25 500 Other: Voiding Method Indwelling Catheter Indwelling Catheter # Bowel Movements 1 ABP, PAP, CO, CI - Last Documented Arterial Blood Pressure 134/44 - Exam PHYSICAL EXAM: VITAL SIGNS: [As above] GENERAL: intubated, opens eyes to name, no acute distress HEENT: Normocephalic, atraumatic, eyes normal NECK: Supple, no JVD. CARDIOVASCULAR: S1, S2 regular. Systolic murmur RESPIRATION: Unlabored, equal air entry, bilateral bases diminished ABDOMEN: Soft, nondistended ,nontender, PEG tube present-capped, scrotal edema. Extremities: Positive edema times all 4 extremities. prior bilateral great toe amputations. NERVOUS SYSTEM: Intubated, opens eyes to name otherwise does not follow commands Skin: Warm and dry. - Labs CBC & Chem 7: 07/22/24 04:09 09/29/23 04:09 Labs: Abnormal Lab Results - Last 24 Hours (Table) 09/28/23 09/28/23 09/29/23 Range/Units 17:49 21:56 04:09 WBC 12.5 H 12.1 H (3.8-10.6) k/uL RBC 3.04 L 3.23 L (4.30-5.90) m/uL Hgb 8.8 L 9.2 L (13.0-17.5) gm/dL Hct 26.8 L 28.6 L (39.0-53.0) % RDW 15.6 H 15.8 H (11.5-15.5) % Neutrophils # 10.8 H (1.3-7.7) k/uL Lymphocytes # 0.6 L (1.0-4.8) k/uL ABG pH (7.35-7.45) ABG pCO2 (35-45) mmHg ABG HCO3 (21-25) mmol/L ABG Total CO2 (19-24) mmol/L ABG O2 Saturation (94-97) % Sodium (137-145) mmol/L Potassium (3.5-5.1) mmol/L BUN (9-20) mg/dL Creatinine (0.66-1.25) mg/dL Glucose (74-99) mg/dL POC Glucose (mg/dL) 128 H (70-110) mg/dL Calcium (8.4-10.2) mg/dL 09/29/23 09/29/23 09/29/23 Range/Units 04:09 04:35 05:25 WBC (3.8-10.6) k/uL RBC (4.30-5.90) m/uL Hgb (13.0-17.5) gm/dL Hct (39.0-53.0) % RDW (11.5-15.5) % Neutrophils # (1.3-7.7) k/uL Lymphocytes # (1.0-4.8) k/uL ABG pH 7.34 L (7.35-7.45) ABG pCO2 48 H (35-45) mmHg ABG HCO3 26 H (21-25) mmol/L ABG Total CO2 27 H (19-24) mmol/L ABG O2 Saturation 98.3 H (94-97) % Sodium 135 L (137-145) mmol/L Potassium 3.1 L (3.5-5.1) mmol/L BUN 34 H (9-20) mg/dL Creatinine 2.80 H (0.66-1.25) mg/dL Glucose 108 H (74-99) mg/dL POC Glucose (mg/dL) 127 H (70-110) mg/dL Calcium 7.5 L (8.4-10.2) mg/dL 09/29/23 Range/Units 11:48 WBC (3.8-10.6) k/uL RBC (4.30-5.90) m/uL Hgb (13.0-17.5) gm/dL Hct (39.0-53.0) % RDW (11.5-15.5) % Neutrophils # (1.3-7.7) k/uL Lymphocytes # (1.0-4.8) k/uL ABG pH (7.35-7.45) ABG pCO2 (35-45) mmHg ABG HCO3 (21-25) mmol/L ABG Total CO2 (19-24) mmol/L ABG O2 Saturation (94-97) % Sodium (137-145) mmol/L Potassium (3.5-5.1) mmol/L BUN (9-20) mg/dL Creatinine (0.66-1.25) mg/dL Glucose (74-99) mg/dL POC Glucose (mg/dL) 137 H (70-110) mg/dL Calcium (8.4-10.2) mg/dL Assessment and Plan Assessment: Acute hypoxic and hypercapnic respiratory failure, status post reintubation on 09/19/2023 secondary to aspiration pneumonia Septic shock, hypotension secondary to aspiration pneumonia, status post multiple fluid boluses, status post pressor dependent Acute GI bleed with wall thickening of the rectum and sigmoid colon reported per CT, colonoscopy pending Acute rhabdomyolysis Acute renal failure, secondary to ATN, worsening, status post placement of temporary right femoral HD catheter placement, on hemodialysis. Metabolic acidosis secondary to the above, improved Fevers secondary to the above, resolved Sepsis, secondary to all the above, on cefepime, resolved. Hypothermia secondary to the above. Acute left lower lobe pneumonia as per pulmonary, initial sputum culture, polymicrobial, reporting E. coli, Staphylococcus aureus-MSSA, strep agalactiae group B. Bronc washings 09/18 reporting Lisa albicans Dysphagia, delayed swallowing, MBS completed-speech recommending dysphagia level 2 diet, one-to-one supervision, aspiration precautions Rectal pain, wall thickening of the rectum/sigmoid colon reported per CT Fat-containing right inguinal hernia reported per CT Thrombocytopenia Paroxysmal atrial fibrillation Acute metabolic encephalopathy secondary to all the above, suspect anoxic. Brain CT did not report any acute abnormalities, EEG reported slowing suggestive of severe encephalopathy likely due to toxic metabolic derangement. Elevated troponin, multifactorial secondary to all the above, ACS ruled out,Type II AZ as per cardiology. Severe dehydration Diabetes mellitus type 2, hemoglobin A1c 11.9 CAD, history of AZ, stent History of seizure disorder, on Keppra Stage I pressure ulcer, 1 cm near rectum Fungal rash, anterior scrotum Acute DKA, anion gap closed , resolved Hypovolemic shock, status post pressor dependent, resolved Acute hypoxic respiratory failure secondary to the above, reintubated 09/19/2023 Severe anion gap metabolic acidosis secondary to the above, status post bicarb drip. Hyperchloremic hypernatremia, resolved. Plan: Continue on current medication resume ,monitoring and symptomatic treatment. Colonoscopy scheduled for today. hemodialysis as per nephrology. IV antibiotics as per ID. prognosis guarded given multiple complex medical issues. The impression and plan of care has been dictated as directed. : I performed a history and examination of this patient, discussed the same with the dictator. I agree with the dictator's note ,documented as a scribe. Any additional findings or plans will be noted.
[2023-09-29 18:06] LABS: Glucose,Whole Blood 136 mg/dL (70-110)
[2023-09-29] MEDS ORDERED: Potassium Replacement Protocol 1 EACH MISC MISCELLANE PRN (22:44)
[2023-09-29] MEDS ORDERED: POTASSIUM BICARBONATE/CIT AC 20 MEQ TABLET.EFF NG-TUBE SCH (23:00)
[2023-09-29] MEDS: POTASSIUM BICARBONATE/CIT AC 20 MEQ TABLET.EFF PO ONE (23:26)
[2023-09-29 23:36] LABS: Glucose,Whole Blood 109 mg/dL (70-110)
[2023-09-30 04:50] LABS: Anisocytosis Slight; Basophils % (A) 0 %; Eosinophils # (A) 0.1 k/uL (0-0.7); Eosinophils % (A) 1 %; HCT 29.5 % (39.0-53.0); HGB 9.4 gm/dL (13.0-17.5); Hypochromasia Slight; Lymphocytes # (A) 0.5 k/uL (1.0-4.8); Lymphocytes % (A) 4 %; MCH 28.5 pg (25.0-35.0); MCHC 31.7 g/dL (31.0-37.0); MCV 89.8 fL (80.0-100.0); Mean Platelet Volume 8.9; Monocytes # (A) 0.6 k/uL (0-1.0); Monocytes % (A) 5 %; Neutrophils # (A) 10.8 k/uL (1.3-7.7); Neutrophils % (A) 90 %; Platelet Count 208 k/uL (150-450); RBC 3.29 m/uL (4.30-5.90)
[2023-09-30 05:05] LABS: Anion Gap 13 mmol/L; Blood Urea Nitrogen 22 mg/dL (9-20); Calcium 7.5 mg/dL (8.4-10.2); Carbon Dioxide 19 mmol/L (22-30); Chloride 100 mmol/L (98-107); Glucose 112 mg/dL (74-99); Potassium 4.2 mmol/L (3.5-5.1); Sodium 132 mmol/L (137-145)
[2023-09-30 05:11] LABS: African American GFR (CKD) 35 (>60 ml/min/1.73 sqM); Non-African American GFR(CKD) 30 (>60 ml/min/1.73 sqM)
[2023-09-30 05:22] LABS: ABG HCO3 22 mmol/L (21-25); ABG Oxygen Saturation 99.2 % (94-97); ABG PCO2 43 mmHg (35-45); ABG PH 7.32 (7.35-7.45); ABG PO2 134 mmHg (83-108); ABG TCO2 23 mmol/L (19-24); Allen Test Performed? Yes
[2023-09-30 06:51] LABS: Glucose,Whole Blood 118 mg/dL (70-110)
--- NOTE | 2023-09-30 08:06 | XR ---
EXAMINATION TYPE: XR chest 1V portable DATE OF EXAM: 09/30/2023 COMPARISON: 09/29/2023 HISTORY: SOB, Follow Up FINDINGS: Indwelling tubes and catheters are unchanged. No change in bibasilar opacities. Stable appearance of the cardio-mediastinal structures at this time. IMPRESSION: 1. Stable portable chest. Clinical correlation and follow up until resolution is recommended.
--- NOTE | 2023-09-30 08:34 | P.PN ---
Subjective Progress Note Date: 09/30/23 Principal diagnosis: Acute kidney injury Patient seen and examined today as a follow-up in the ICU. He remains sedated and intubated. He has a right groin temporary HD catheter that was placed on 09/22/2023. He has been receiving hemodialysis without any complications according to nursing. Patient still has decreased urine output. He is scheduled for hemodialysis this morning. Objective - Vital Signs Vital signs: Vital Signs Temp 98.1 F 09/30/23 04:00 Pulse 72 09/30/23 07:00 Resp 26 H 09/30/23 07:00 BP 120/61 09/30/23 07:00 Pulse Ox 98 09/30/23 07:00 FiO2 40 09/30/23 05:33 Intake & Output 09/29/23 09/30/23 09/30/23 18:59 06:59 18:59 Intake Total 382 876 23 Output Total 10 4405 Balance 372 -3529 23 Weight 112.1 kg 108.8 kg Intake: IV 352 276 23 0.9 sodium chloride 210 240 20 Anidulafungin 100 mg In 112 Sodium Chloride 0.9% 100 ml @ 84 mls/hr IVPB DAILY [facility], [facility]–1983 Rx#:[id number] Pressure Bag 30 36 3 Hemodialysis 400 Other 30 200 Output: Urine 10 5 Hemodialysis 2400 Hemodialysis Net Amount 2000 Other: Voiding Method Indwelling Catheter Indwelling Catheter ABP, PAP, CO, CI - Last Documented Arterial Blood Pressure 159/52 - Exam General appearance: The patient is sedated and intubated. HET: Head is normocephalic and atraumatic. Neck: Supple. Heart: Regular. Lungs: Equal expansion. Abdomen: Soft, nondistended. Extremities: Normal skin color and turgor. Right groin temporary HD catheter in place without any bleeding or hematoma. Neurological: Sedated and intubated. - Labs CBC & Chem 7: 09/30/23 04:28 09/30/23 04:28 Labs: Abnormal Lab Results - Last 24 Hours (Table) 09/29/23 09/29/23 09/30/23 Range/Units 11:48 18:04 04:28 WBC 12.0 H (3.8-10.6) k/uL RBC 3.29 L (4.30-5.90) m/uL Hgb 9.4 L (13.0-17.5) gm/dL Hct 29.5 L (39.0-53.0) % RDW 16.0 H (11.5-15.5) % Neutrophils # 10.8 H (1.3-7.7) k/uL Lymphocytes # 0.5 L (1.0-4.8) k/uL ABG pH (7.35-7.45) ABG pO2 (83-108) mmHg ABG O2 Saturation (94-97) % Sodium (137-145) mmol/L Carbon Dioxide (22-30) mmol/L BUN (9-20) mg/dL Creatinine (0.66-1.25) mg/dL Glucose (74-99) mg/dL POC Glucose (mg/dL) 137 H 136 H (70-110) mg/dL Calcium (8.4-10.2) mg/dL 09/30/23 09/30/23 09/30/23 Range/Units 04:28 05:18 06:50 WBC (3.8-10.6) k/uL RBC (4.30-5.90) m/uL Hgb (13.0-17.5) gm/dL Hct (39.0-53.0) % RDW (11.5-15.5) % Neutrophils # (1.3-7.7) k/uL Lymphocytes # (1.0-4.8) k/uL ABG pH 7.32 L (7.35-7.45) ABG pO2 134 H (83-108) mmHg ABG O2 Saturation 99.2 H (94-97) % Sodium 132 L (137-145) mmol/L Carbon Dioxide 19 L (22-30) mmol/L BUN 22 H (9-20) mg/dL Creatinine 2.22 H (0.66-1.25) mg/dL Glucose 112 H (74-99) mg/dL POC Glucose (mg/dL) 118 H (70-110) mg/dL Calcium 7.5 L (8.4-10.2) mg/dL Microbiology - Last 24 Hours (Table) 09/19/23 15:30 Acid Fast Bacilli Smear - Preliminary Bronchial Washings - Random Acid Fast Bacilli Culture - Preliminary 09/24/23 11:10 Blood Culture - Final Blood 09/24/23 10:58 Blood Culture - Final Blood Assessment and Plan Assessment: Acute kidney injury requiring hemodialysis status post temporary HD catheter placement Plan: 1. Continue hemodialysis per recommendations from nephrology 2. Await further recommendations from nephrology if there is a need for permacath Thank you for this consultation, we will be on standby. If further needed please do not hesitate to reach out to us. The impression and plan of care has been dictated as directed. I performed a history and examination of this patient, discussed the same with the dictator. I agree with the dictator's note ,documented as a scribe. Any additional findings or plans will be noted.
--- NOTE | 2023-09-30 10:25 | P.PN ---
Subjective Principal diagnosis: Progress note dated 09/22/23 67-year-old male with past medical history significant for diabetes mellitus, prior toe amputations, hyperlipidemia, coronary artery disease with previous stents, and seizure disorder who presented to the ED on 09/06 with DKA unresponsive intubated and mechanically ventilated. Patient was admitted to the ICU for DKA, respiratory failure, and MARIANO. He remained in the ICU until 09/12 when he was transferred to the floors. On 09/18 he was scheduled for colonoscopy as well as PEG placement on 09/21. On 09/18 his O2 requirement increased from 2-6L NC. A Team was called and he was reintubated and transferred to the ICU. Patient was evaluated today on 09/18/2023, patient is about the same, continues to have some discomfort in his back and in his rectal area, supposed to have colonoscopy tomorrow. Eliquis remains on hold. Patient has no active pulmonary issues. WBC count is 8.6 hemoglobin 10.2 electrolytes are normal renal profile is normal The patient was seen today September 19, 2023 in follow-up on the selective care unit. Today he is found to be weak and obtunded. He is requiring more oxygen currently at 6 L high flow nasal cannula. A rapid response team was called on him. Chest x-ray and ABGs reviewed. He will be transferred to the intensive care unit. Serial blood gases on 100% FiO2 revealed a P O2 of 66, pCO2 of 49 and a pH of 7.32. White count 9.9. Hemoglobin 11.3. Platelets 233. Sodium 143. Potassium 4.5. Bicarb 26. BUN 17. Creatinine 0.87. Glucose 151. The patient has been having concerns of rectal pain and possible rectal mass and the plan was for colonoscopy. However the patient was having ongoing issues with difficulty in swallowing and was being considered for PEG tube placement. This was prior to his change in clinical status. X-ray did reveal a right lower lobe infiltrate with minimal right pleural effusion. Patient was evaluated today on 09/20/2023, patient developed a worsening pulmonary status yesterday, required transfer to the ICU intubation mechanical ventilation. I saw the patient yesterday, he underwent bronchoscopy, lines were placed and the patient, and he was kept on mechanical ventilation overnight. Patient is now on assist-control rate of 24 tidal volume 450 FiO2 was 80% earlier but is now 50%, and PEEP of 10 ABG showed a pO2 of 92 pCO2 47 pH of 7.30 his urine output is 5 to 20 cc/h, however his CVP is low and the patient will require more fluid boluses if no improvement after fluid boluses, then we will give the patient Lasix. In the meantime the patient is requiring propofol at 35 mg/kg/min norepinephrine at 0.06 mg/kg/min IV fluid running at 100 cc/h and the patient is also receiving vital HP at 10 cc/h antibiotics rosario he is receiving Flagyl and Zosyn. Chest x-ray continues to show bilateral infiltrates consistent with most likely aspiration pneumonia. Patient was seen by infectious disease and he is now on Flagyl and ZosynWBC count today is 13 hemoglobin 9.3 basic metabolic profile is normal renal profile showed a BUN of 29 creatinine 1.45 Patient was evaluated today on 09/21/2023, remains in the ICU, intubated and mechanically ventilated. Patient is on assist-control rate of 24 tidal volume 450 FiO2 50% and PEEP of 10 ABG showed a pO2 of 79 pCO2 43 pH of 7.26, apparently the patient developed some metabolic acidosis associated with acute kidney injury, and I have recommended 1 amp of bicarb to be given and sodium bicarb to be given orally and I also recommended nephrology evaluation on this patient as his renal status seems to be getting worse and the patient is having less and less urine output. CVP is around 7 patient will receive more fluids today, may consider Lasix depending on the response to fluid boluses. Urine output is extremely low. And again his renal functioning is getting worse. Patient remains on propofol at 50 mcg/kg/min he is also on norepinephrine at 0.03 mcg/kg/min, patient is receiving Glucerna 1.5/enteral feeding, patient remains on Lovenox 80 mg SQ twice daily, he is also on Zosyn and Flagyl. Chest x-ray continues to show bilateral infiltrates. Improved compared to his initial chest x-ray but nonetheless considered to be significant airspace disease bilaterally. Microbiology from the bronchial washing/lavage, showed mostly C andida, Gram stains and cultures from previous sputum from 09/08/2023 showed E. coli Staph aureus and Streptococcus agalactiae Patient was evaluated today on 09/22/2023, remains in the ICU, intubated and mechanically ventilated. He is on propofol 25 mcg/kg/min, Levophed 0.09 mcg/kg/min, and .9 NS IVF at 10cc/h patient is on assist-control rate of 24 tidal volume 450 FiO2 50% and PEEP of 10. ABG shows pH 7.24 pCO2 42 and pO2 of 97. Patient exhibits normal anion gap metabolic acidosis. Sodium 145, potassium 4.4, chloride 119, CO2 16, BUN 46, creatinine 2.98, glucose 178, and albumin 1.7. He received Sodium bicarb orally, 1amp IVP bicarb, and 80 mg Lasix as per nephrology's recommendation due to patient's poor urine output despite fluids and Lasix. Renal ultrasound showed no hydronephrosis and a left renal cyst. X-ray shows worsening bibasilar infiltrates. Bronchial washings showed Lisa albicans. He is on Zosyn 25ml/hr. Patient was evaluated today on 09/23/2023, remains in ICU, intubated and mechanically ventilated. He is on propofol 50 mcg/kg/min, Levophed 0.06 mcg/kg/min, and 0.9 normal saline IV fluids at 10 cc/h. Patient is on assist- control rate of 24 tidal volume 450 FiO2 50% and PEEP of 10. ABG shows pH of 7.32 pCO2 of 44 and pO2 of 70. Sodium is 143, potassium 4.2, chloride 113, CO2 21, BUN 42, creatinine 3.07, glucose 164, cortisol 11.7 and TSH was 0.618. U rine output remains poor despite fluid restriction and Lasix. Nephrology has discontinued the Lasix drip of 10 mcg/h and placed the patient on 80 mg IVP twice daily. Patient was dialyzed 1L yesterday and is currently undergoing dialysis with a goal of 2.5 L and tolerating well. Patient has FMS in place. He is receiving Glucerna tube feeds at a rate of 35/h. Chest x-ray today remains unchanged shows bibasilar infiltrates with a small right pleural effusion. Patient was evaluated today on 09/24/2023, remains in ICU, intubated and mechanically ventilated. Overnight he was on propofol at a rate of 40 mcg/kg/min, Levophed 0.03 mcg/kg/min, and 0.9 normal saline at 10/h. Patient is on assist-control rate of 24, tidal volume 450, FiO2 50%, PEEP of 10. ABG shows pO2 of 78, CO2 43, pH 7.35. Sodium is 139, potassium 4.4, chloride 108, CO2 21, BUN 40, creatinine 3.11, glucose 194. Blood glucose levels have been ranging in the 200s over the last 24 hours. Urine output remains poor despite fluid restriction and Lasix 80 mg twice daily. Patient was dialyzed 2.9 L yesterday and is undergoing dialysis today with a goal of 3 L. Daily interruption of sedation was unsuccessful yesterday: Patient became asynchronous with the vent, was not arousable, and did not follow commands so SBT was not attempted. Patient has FMS in place. He is receiving Glucerna feeds at a rate of 35/hour. Chest x-ray shows bibasilar infiltrates with slight improvement. Patient has had mild low-grade fevers with a Tmax of 101.3. White count has increased to 13.4 from 9.1 yesterday. Blood culture from 09/19 shows no growth after 72 hours. Procalcitonin yesterday was 5.47. He remains on Zosyn. This morning propofol and Levophed were held for daily interruption of sedation and possible SBT today. Patient was evaluated today on 09/25/2023, remains in ICU, intubated and mechanically ventilated. He is on propofol at a rate of 40 mcg/kg/min, Levophed 0.03 mcg/kg/min, and 0.9 normal saline at 10/h. Patient is on assist control rate of 24, tidal volume 450, FiO2 50%, PEEP of 10. ABG shows PaO2 91, CO2 44, pH 7.4. Sodium is 136, potassium 3.8 which has been repleted, chloride 105, CO2 25, BUN 37, creatinine 2.94, glucose 161. Urine output remains poor despite fluid restriction and Lasix 80 mg twice daily. Patient was dialyzed 3 L yesterday and is undergoing dialysis today. Daily interruption of sedation was unsuccessful yesterday. Patient was not opening his eyes or moving his extremi ties, unable to follow commands, and asynchronous with the vent, so SBT was not attempted. Patient has FMS in place. He is receiving Glucerna feeds at a rate of 35 an hour. Chest x-ray shows worsening bibasilar consolidations. Patient had low-grade fever of 99.7. White count has decreased from 13.4 yesterday to 10.8 today. Blood culture, urine culture, and sputum culture have all been sent to the lab. Daily interruption of sedation & SBT as tolerated today. Attempts to contact family regarding possible trach and PEG are still ongoing due to patient's multiple unsuccessful attempts to wean off the ventilator. Patient was evaluated today on 09/26/2023, remains in ICU, intubated and mec hanically ventilated. Propofol & Levophed have been held since yesterday at 1pm. He is on 0.9NS at KVO. Patient is on assist control rate of 24, tidal volume 450, FiO2 50%, PEEP of 10. ABG shows PaO2 71, CO2 41, pH 7.48. Sodium is 133, potassium 4.1, chloride 99, CO2 28, BUN 35, creatinine 2.76, glucose 187. Urine output remains poor despite fluid restriction and Lasix 80 mg twice daily. Patient was dialyzed 3 L yesterday. Despite being off sedation, patient remains obtunded. He only responds mildly to sternal rubs Patient has FMS in place. Overnight at about 2:40am, the patient developed bright red liquid stool, BP was 118/49 with a map of 67 and a heart rate of 86. Hemoglobin was 8.3. As per primary team. OG was changed to LIS and hemoglobin was repeated. Lovenox & Glucerna tube feeds was held due to scheduled trach & PEG today. Hemoglobin this morning was 7.7. He received 1 unit and 20mg Ddavp given to optimize him for surgery today. White count is 11.4 today. Urine culture showed growth of yeasts and Eraxis was started as per ID's recommendations. Patient was evaluated today on 09/27/2023, remains in ICU, status post trach and PEG yesterday. Tracheostomy tube is leaking but NG tube looks clean dry and intact. Levophed is running at 9.7 mcg/min and 0.9 normal saline at 10/h. Patient is on assist-control rate of 24 tidal volume 450 FiO2 60% PEEP of 10. ABG shows pO2 from 28 pCO2 45 and pH 7.34. Sodium 134, potassium 4.5, chloride 101, CO2 21, BUN 29, creatinine 2.47, and glucose 165. Urine output remains poor despite fluid restriction and Lasix 80 mg twice daily. Patient will be dialyzed today with a goal of 1 L. Patient has a FMS in place. Overnight the patient has had consistently bloody stools and put out about 900 overnight. Tube feeds are being held due to GI bleeding. Surgery recommends RBC tagged study. Hemoglobin was 7.5 this morning and he received his fifth unit of blood. White count is 20 today. Urine culture shows growth of yeasts. Patient remains on Eraxis and Zosyn. Progress note dated September 28, 2023. 67-year-old male who is still in the intensive care unit, on the mechanical ventilator. Vent settings include volume assist-control, rate 24, tidal volume 450, FiO2 60%, to be reduced down to 50%, PEEP of 10. Blood gases show pO2 147, pCO2 42, and a pH of 7.42. The patient is getting saline at 10 cc an hour, no repinephrine has been weaned off. He is scheduled for colonoscopy tomorrow, September 28. Since being here in the unit, and in the hospital, he is received a total of 7 units of packed red blood cells. His red blood cell study, was negative. Head CT was negative. He had hemodialysis yesterday, and 1 L was removed. Current labs include a white count 14.1, hemoglobin 7.4, hematocrit 22.3, and a platelet count of 270,000. Sodium 133, potassium 3.8, chlorides 102, CO2 23, BUN 29, creatinine 2.45. Glucose is 135. Albumin is 1.8. Chest x-ray shows bibasilar infiltrates or opacities. Patient was evaluated today on 09/29/2023, remains in ICU, on mechanical ventilator. Vent settings are assist-control, rate 24, tidal volume 450, FiO2 50%, PEEP of 10. Blood gases show pO2 106, CO2 pCO2 48, pH 7.34. Patient remains on 0.9% saline at 10 cc an hour, norepinephrine remains off. He is scheduled for colonoscopy & hemodialysis today. Since being on the unit he has received a total of 7 units of packed red blood cells. Tagged RBC study was negative. Head CT done on 09/27/2023 was unremarkable. Current labs include a white count of 12.1, hemoglobin 9.2, and platelets 184,000. Sodium 135, potassium 3.1 repleted, chloride 101, CO2 23, BUN 34, Creatinine 2.8, and glucose 108. Chest x-ray shows stable bibasilar infiltrates. Patient was evaluated today on 09/30/2023, remains in ICU, on mechanical ventilator. Vent settings are currently assist-control rate 24, tidal volume 450, FiO2 40%, and PEEP of 10. Blood gases this morning showed pO2 of 134, pCO2 42, pH 7.32 at FiO2 50%. Patient remains saline 10 cc an hour and is not on any sedation. Colonoscopy yesterday did not show any evidence of GI bleed. Hemodialysis yesterday yielded 2 L. Tube feeds remain held. Current labs i nclude white count of 12, hemoglobin 9.4, platelets 208,000. Sodium 132, potassium 4.2, chloride 100, CO2 19, BUN 22, creatinine 2.22, and glucose 112. Chest x-ray shows stable bibasilar infiltrates. Objective - Vital Signs Vital signs: Vital Signs Temp 97.7 F 09/30/23 08:00 Pulse 78 09/30/23 09:01 Resp 25 H 09/30/23 09:00 BP 104/56 09/30/23 09:00 Pulse Ox 98 09/30/23 09:00 FiO2 40 09/30/23 08:38 Intake & Output 09/29/23 09/30/23 09/30/23 18:59 06:59 18:59 Intake Total 382 876 129 Output Total 10 4405 Balance 372 -3529 129 Weight 112.1 kg 108.8 kg Intake: IV 352 276 69 0.9 sodium chloride 210 240 60 Anidulafungin 100 mg In 112 Sodium Chloride 0.9% 100 ml @ 84 mls/hr IVPB DAILY [facility] Rx#:[id number] Pressure Bag 30 36 9 Hemodialysis 400 Other 30 200 60 Output: Urine 10 5 Hemodialysis 2400 Hemodialysis Net Amount 1999 Other: Voiding Method Indwelling Catheter Indwelling Catheter ABP, PAP, CO, CI - Last Documented Arterial Blood Pressure 152/48 - Exam GENERAL EXAM: 67-year-old white male with tracheostomy & PEG tube, not in distress, generally edematous in all 4 extremities HEAD: Normocephalic and atraumatic EYES: Within normal NOSE: Clear with pink turbinates. THROAT: No erythema or exudates. Dry mucous membranes. NECK: No masses, no JVD. L Subclavian central line is noted. CHEST: No chest wall deformity. LUNGS: Good breath sound bilaterally mostly diminished at the bases no crackles rhonchi or wheezes CVS: S1 and S2 normal with no soft systolic murmur, regular rhythm. No extra heart sounds ABDOMEN: Abdomen flat, diminished bowel sounds, no hepatosplenomegaly, no guarding or rigidity. SKIN: No rashes CENTRAL NERVOUS SYSTEM: opens eyes, but does not track or follow commands Theatric: Could not assess EXTREMITIES: no clubbing, no cyanosis, trace bipedal edema. - Labs CBC & Chem 7: 09/30/23 04:28 09/30/23 04:28 Labs: Abnormal Lab Results - Last 24 Hours (Table) 09/29/23 09/29/23 09/30/23 Range/Units 11:48 18:04 04:28 WBC 12.0 H (3.8-10.6) k/uL RBC 3.29 L (4.30-5.90) m/uL Hgb 9.4 L (13.0-17.5) gm/dL Hct 29.5 L (39.0-53.0) % RDW 16.0 H (11.5-15.5) % Neutrophils # 10.8 H (1.3-7.7) k/uL Lymphocytes # 0.5 L (1.0-4.8) k/uL ABG pH (7.35-7.45) ABG pO2 (83-108) mmHg ABG O2 Saturation (94-97) % Sodium (137-145) mmol/L Carbon Dioxide (22-30) mmol/L BUN (9-20) mg/dL Creatinine (0.66-1.25) mg/dL Glucose (74-99) mg/dL POC Glucose (mg/dL) 137 H 136 H (70-110) mg/dL Calcium (8.4-10.2) mg/dL 09/30/23 09/30/23 09/30/23 Range/Units 04:28 05:18 06:50 WBC (3.8-10.6) k/uL RBC (4.30-5.90) m/uL Hgb (13.0-17.5) gm/dL Hct (39.0-53.0) % RDW (11.5-15.5) % Neutrophils # (1.3-7.7) k/uL Lymphocytes # (1.0-4.8) k/uL ABG pH 7.32 L (7.35-7.45) ABG pO2 134 H (83-108) mmHg ABG O2 Saturation 99.2 H (94-97) % Sodium 132 L (137-145) mmol/L Carbon Dioxide 19 L (22-30) mmol/L BUN 22 H (9-20) mg/dL Creatinine 2.22 H (0.66-1.25) mg/dL Glucose 112 H (74-99) mg/dL POC Glucose (mg/dL) 118 H (70-110) mg/dL Calcium 7.5 L (8.4-10.2) mg/dL Microbiology - Last 24 Hours (Table) 09/19/23 15:30 Acid Fast Bacilli Smear - Preliminary Bronchial Washings - Random Acid Fast Bacilli Culture - Preliminary 09/24/23 11:10 Blood Culture - Final Blood 09/24/23 10:58 Blood Culture - Final Blood Assessment and Plan Assessment: Acute hypoxic respiratory failure secondary to aspiration pneumonia s/p trach on 09/25 Acute kidney injury Malnutrition with severe hypoalbuminemia s/p PEG tube 09/26 Anasarca secondary to hypoalbuminemia Candiduria Unspecified bleeding source Hg 7.5 s/p 7 units RBCs Normal anion gap metabolic acidosis resolved Acute DKA resolved Hx of Type 2 DM Hx of B/L great toe amputations HX of Hyperlipidemia Hx of CAD with previous stent Hx of seizure disorder Plan Continue ventilator support Continue IVF at 10/hr HD today as tolerated Possible candidate for Permacath as per Nephro Candidate for PICC line Consult relay repairer to resume tube feeds Consult select specialty Continue GI and DVT prophylaxis Continue Levemir insulin to 20 units for better glucose control Continue sliding scale NovoLog insulin as per protocol Continue Eraxis 100mg q24hrs Patient is critically ill, prognosis is guarded Patient is critically ill and critical care time is over 30 Will continue to follow Time with Patient: Greater than 30
--- NOTE | 2023-09-30 11:10 | P.PN ---
Subjective Progress Note Date: 09/30/23 CHIEF COMPLAINT: rectal pain HISTORY OF PRESENT ILLNESS: 67-year-old male admitted to the hospital for DKA. patient is status post tracheostomy and PEG tube placement. Patient status post colonoscopy which was reported as normal but limited view to due to large amount of liquidy stool. Patient has had no further bloody stools. He had a small brown smear today. Tube feeds are scheduled to be restarted today. Hemoglobin stable at 9.4. Patient had hemodialysis yesterday. PHYSICAL EXAM: VITAL SIGNS: Reviewed GENERAL: no acute distress. Neck: trach site clean dry and intact ABDOMEN: Soft. Nondistended. PEG tube site clean dry and intact ASSESSMENT: 1. Acute hypoxic respiratory failure secondary to aspiration pneumonia. status post trach 2. Severe protein calorie malnutrition 3. GI bleed and Wall thickening of the rectum and sigmoid colon noted on CT status post colonoscopy PLAN: -Continue ICU management -Continue supportive care -Continue tube feeds Physician Salvage Cutter note has been reviewed by physician. Signing provider agrees with the documented findings, assessment, and plan of care. Objective - Vital Signs Vital signs: Vital Signs Temp 97.7 F 09/30/23 08:00 Pulse 80 09/30/23 10:00 Resp 24 09/30/23 10:00 BP 129/63 09/30/23 10:00 Pulse Ox 98 09/30/23 10:00 FiO2 40 09/30/23 10:00 Intake & Output 09/29/23 09/30/23 09/30/23 18:59 06:59 18:59 Intake Total 382 876 129 Output Total 10 4405 Balance 372 -3529 129 Weight 112.1 kg 108.8 kg Intake: IV 352 276 69 0.9 sodium chloride 210 240 60 Anidulafungin 100 mg In 112 Sodium Chloride 0.9% 100 ml @ 84 mls/hr IVPB DAILY [facility] Rx#:[id number] Pressure Bag 30 36 9 Hemodialysis 400 Other 30 200 60 Output: Urine 10 5 Hemodialysis 2400 Hemodialysis Net Amount 2000 Other: Voiding Method Indwelling Catheter Indwelling Catheter ABP, PAP, CO, CI - Last Documented Arterial Blood Pressure 149/48 - Labs CBC & Chem 7: 09/30/23 04:28 09/30/23 04:28 Labs: Abnormal Lab Results - Last 24 Hours (Table) 09/29/23 09/29/23 09/30/23 Range/Units 11:48 18:04 04:28 WBC 12.0 H (3.8-10.6) k/uL RBC 3.29 L (4.30-5.90) m/uL Hgb 9.4 L (13.0-17.5) gm/dL Hct 29.5 L (39.0-53.0) % RDW 16.0 H (11.5-15.5) % Neutrophils # 10.8 H (1.3-7.7) k/uL Lymphocytes # 0.5 L (1.0-4.8) k/uL ABG pH (7.35-7.45) ABG pO2 (83-108) mmHg ABG O2 Saturation (94-97) % Sodium (137-145) mmol/L Carbon Dioxide (22-30) mmol/L BUN (9-20) mg/dL Creatinine (0.66-1.25) mg/dL Glucose (74-99) mg/dL POC Glucose (mg/dL) 137 H 136 H (70-110) mg/dL Calcium (8.4-10.2) mg/dL 09/30/23 09/30/23 09/30/23 Range/Units 04:28 05:18 06:50 WBC (3.8-10.6) k/uL RBC (4.30-5.90) m/uL Hgb (13.0-17.5) gm/dL Hct (39.0-53.0) % RDW (11.5-15.5) % Neutrophils # (1.3-7.7) k/uL Lymphocytes # (1.0-4.8) k/uL ABG pH 7.32 L (7.35-7.45) ABG pO2 134 H (83-108) mmHg ABG O2 Saturation 99.2 H (94-97) % Sodium 132 L (137-145) mmol/L Carbon Dioxide 19 L (22-30) mmol/L BUN 22 H (9-20) mg/dL Creatinine 2.22 H (0.66-1.25) mg/dL Glucose 112 H (74-99) mg/dL POC Glucose (mg/dL) 118 H (70-110) mg/dL Calcium 7.5 L (8.4-10.2) mg/dL Microbiology - Last 24 Hours (Table) 09/19/23 15:30 Acid Fast Bacilli Smear - Preliminary Bronchial Washings - Random Acid Fast Bacilli Culture - Preliminary 09/24/23 11:10 Blood Culture - Final Blood 09/24/23 10:58 Blood Culture - Final Blood
--- NOTE | 2023-09-30 11:19 | P.PN ---
Subjective patient is seen for follow-up for acute kidney injury. Started hemodialysis on 09/22/2023. Patient remains oliguric. Seen on hemodialysis today. Objective - Vital Signs Vital signs: Vital Signs Temp 97.7 F 09/30/23 08:00 Pulse 80 09/30/23 10:00 Resp 24 09/30/23 10:00 BP 129/63 09/30/23 10:00 Pulse Ox 98 09/30/23 10:00 FiO2 40 09/30/23 10:00 Intake & Output 09/29/23 09/30/23 09/30/23 18:59 06:59 18:59 Intake Total 382 876 252 Output Total 10 4405 Balance 372 -3529 252 Weight 112.1 kg 108.8 kg Intake: IV 352 276 192 0.9 sodium chloride 210 240 80 Anidulafungin 100 mg In 112 100 Sodium Chloride 0.9% 100 ml @ 84 mls/hr IVPB DAILY [facility] Rx#:[id number] Pressure Bag 30 36 12 Hemodialysis 400 Other 30 200 60 Output: Urine 10 5 Hemodialysis 2400 Hemodialysis Net Amount 1999 Other: Voiding Method Indwelling Catheter Indwelling Catheter ABP, PAP, CO, CI - Last Documented Arterial Blood Pressure 149/48 - Exam Patient is awake. Status post trach. Patient remains on the vent. Examination of the heart S1 and S2 Examination of the lungs bilateral breath sounds are heard Abdomen is soft Examination lower extremity shows edema 2+ bilaterally - Labs CBC & Chem 7: 09/30/23 04:28 09/30/23 04:28 Labs: Abnormal Lab Results - Last 24 Hours (Table) 09/29/23 09/29/23 09/30/23 Range/Units 11:48 18:04 04:28 WBC 12.0 H (3.8-10.6) k/uL RBC 3.29 L (4.30-5.90) m/uL Hgb 9.4 L (13.0-17.5) gm/dL Hct 29.5 L (39.0-53.0) % RDW 16.0 H (11.5-15.5) % Neutrophils # 10.8 H (1.3-7.7) k/uL Lymphocytes # 0.5 L (1.0-4.8) k/uL ABG pH (7.35-7.45) ABG pO2 (83-108) mmHg ABG O2 Saturation (94-97) % Sodium (137-145) mmol/L Carbon Dioxide (22-30) mmol/L BUN (9-20) mg/dL Creatinine (0.66-1.25) mg/dL Glucose (74-99) mg/dL POC Glucose (mg/dL) 137 H 136 H (70-110) mg/dL Calcium (8.4-10.2) mg/dL 09/30/23 09/30/23 09/30/23 Range/Units 04:28 05:18 06:50 WBC (3.8-10.6) k/uL RBC (4.30-5.90) m/uL Hgb (13.0-17.5) gm/dL Hct (39.0-53.0) % RDW (11.5-15.5) % Neutrophils # (1.3-7.7) k/uL Lymphocytes # (1.0-4.8) k/uL ABG pH 7.32 L (7.35-7.45) ABG pO2 134 H (83-108) mmHg ABG O2 Saturation 99.2 H (94-97) % Sodium 132 L (137-145) mmol/L Carbon Dioxide 19 L (22-30) mmol/L BUN 22 H (9-20) mg/dL Creatinine 2.22 H (0.66-1.25) mg/dL Glucose 112 H (74-99) mg/dL POC Glucose (mg/dL) 118 H (70-110) mg/dL Calcium 7.5 L (8.4-10.2) mg/dL Microbiology - Last 24 Hours (Table) 09/19/23 15:30 Acid Fast Bacilli Smear - Preliminary Bronchial Washings - Random Acid Fast Bacilli Culture - Preliminary 09/24/23 11:10 Blood Culture - Final Blood 09/24/23 10:58 Blood Culture - Final Blood Assessment and Plan Assessment: 1. Acute kidney injury secondary to ATN secondary to hypotension requiring vasopressor support. Baseline creatinine near 1. Oliguric. No hydronephrosis noted on kidney ultrasound. Started on hemodialysis September 21 to 2023 via temporary catheter dialysis catheter. 2. Septic shock secondary to pneumonia on antibiotics. ID following. 3. Metabolic acidosis secondary to acute kidney injury and IV fluids. Improved. 4. Acute hypoxic respiratory failure secondary to pneumonia. Intubated. 5. DKA on presentation status post insulin drip. 6. Hyperphosphatemia secondary to acute kidney injury. Phosphorus level 5.5 dated September 22, 2023. 7. Volume overload. Plan: hemodialysis today and repeat in a.m. proceed with tunneled dialysis catheter placement.
[2023-09-30 11:52] LABS: Glucose,Whole Blood 129 mg/dL (70-110)
--- NOTE | 2023-09-30 14:37 | P.PN ---
Subjective Progress Note Date: 09/30/23 Romel Malin is a 67-year-old male with past medical history significant for diabetes mellitus, prior toe amputations, hyperlipidemia, coronary artery disease with previous stents, and seizure disorder. He is currently intubated to the mechanical ventilator, unresponsive without any sedation, unable to provide any information. Patient was transferred from [facility] late last night. Apparently, found unresponsive by his girlfriend, and last known well was 24 hours prior. Patient was intubated by EMS on arrival and triaged to [facility]. Initial presentation was consistent with DKA. Subsequently, the patient was transferred to [facility]. Patient is currently in trauma bay 1, he is intubated mechanical ventilator. Chest x-ray on arrival to our facility shows the endotracheal tube in satisfactory position approximately 4 cm above the mahesh. There is an orogastric tube that should be advanced. Right IJ central line catheter appears to terminate at the Cavo atrial junction. No focal infiltrates or evidence of pneumonia. Current ventilator settings are assist-control, respiratory rate 14, tidal volume 500, FiO2 35%, PEEP of 5. He is breathing slightly above set rate. Not on any sedation. Remains unresponsive even to deep painful stimuli. CT of the brain did not show any acute intracranial hemorrhage or mass effect. ABG is consistent with profound metabolic acidosis, with a PaO2 of 204, pCO2 of 25, pH of 7.04. Patient has been given a total of 2 A of bicarb. He is hypotensive and in a shock state, he has been fluid resuscitated with at least 2.5 L crystalloid fluid. No insulin infusion is currently ordered. He remains profoundly hypotensive, and has been started on norepinephrine which is currently infusing at 0.06 mcg/kg/min. CBC: WBC count 8.8, hemoglobin 14.5, hematocrit 50.3, platelets 136. CMP: Sodium 143, potassium 5.2, chloride 115, serum bicarb less than 5, anion gap unmeasurable, BUN 134, creatinine 4.29, gluc ose 910. Lactic 1.1. LFTs not elevated. Total bilirubin 0.7. Ammonia less than 9. CPK was 882. Troponin 0.084. NT BNP 2720. EKG shows normal sinus rhythm and is nondiagnostic for acute ischemia. Urinalysis positive for glucose and ketones. Urine toxicology screen at outside facility was essentially negative. Serum alcohol less than 10. Patient will be admitted to the intensive care unit once bed available. 09/09/2023 Patient grimaces to pain but does not follow commands. He remains off sedatives. Suspect to be hypoxic encephalopathy. Neurolgy was consulted and advises mentation is likely due to metabolic injury. CT scan of the brain yesterday that showed no midline shift or swelling. Patient anion gap has closed with an anion gap of 6, bicarb 17. Potassium at 3.3. Replacement ongoing per protocol. Blood sugars 879. Insulin IV will be discontinued and will transiotion to Insulin detemir SQ. Patient began to show increased breathing on the mechanical ventilator and was switched to pressure control rate of 20, tidal volume of 500, FiO2 of 35%, and a PEEP of 5. ABG showed pH of 7.4 with a pCO2 of 29 and pO2 of 103. WBC is at 5 with a hemoglobin of 12 and a platelet count of 62. Heparin SQ discontinued. Chest x-ray show atelectatic changes in lung base bilaterally. Sputum is showing 09/09 Patient still encephaolpathic but now opens eyes to command, moves arms independently, only grimaces to pain. Patient still intubated and comfortable on current vent settings. Still not on any sedation. Potassium replacement on going as per protocol but on the uptrend latest at 3.5 . Glucose at the 211 and sustaining at levels of 200s. On Glucerna 1.5 rate at 30cc/hr via enteral feeding. Insulin increased to 25 units and on sliding scale coverage. Sputum culture grew gram-negative bacillus and presumptive Staph aureus. started on IV Cefepime. WBC 4.7, hemoglobin 11.4, hematocrit 35 and platelet count 49. Blood pressures increase at 140-160/60-80. Started on IV hydralazine 10mg PRN. Afebrile on assessment. Sodium elevated trend at 152. 0.45% normal saline discontinued and start on free water through OG tube. 09/10. Patient seen and examined. Continues to be intubated at the bedside, all questions answered 09/11. Patient seen and examined. Patient extubated this morning, following commands, currently on oxygen via nasal cannula 09/12. Patient seen and examined. Labs done this morning showed WBC 7.6, hemoglobin 10.8, platelet count 90, sodium 149, potassium 3.6, BUN 36, creatinine 1.06. Patient getting chest PT 09/13. Patient seen and examined. Currently on thickened liquid diet. Speech evaluation pending. Decrease fluids. 09/15/2023 telemetry sinus rhythm. Continues on amiodarone, Farxiga. Anticoagulated on Eliquis. Confused this morning, alert and oriented to person, knows he is in the hospital but thinks he is in [place], [place]. Maintaining O2 sat of 94% on 2 L nasal cannula on cefepime and nebulized bronchodilators. Choking on applesauce during speech therapy's evaluation, modified barium swallow ordered. Blood sugars in the low 200s during the night, better controlled this morning, 132. Hemoglobin A1c 11.9. 09/16/2023 MBS results noted-speech therapy recommending ground meats, nectar liquids, no straw, liquids from cup, small bites and sips with direct supervision , sitting upright 90 degrees and ongoing speech therapy. O2 sats improved, 97% on 2 L nasal cannula. Maintained on cefepime as per ID, afebrile, normal WBC. Hemoglobin 10, platelets 146. Potassium 2.9-supplementation and magnesium level ordered. Blood sugars better controlled. Renal function stable. Telemetry sinus rhythm. PT pending. 09/17/2023 Maintained on cefepime.yesterday Ochoa catheter discontinued but patient developed urinary retention and Ochoa catheter reinserted .ongoing lower back and rectal pain. lumbar CT reported no evidence for spinal fracture, moderate degeneration changes without evidence for significant spinal canal stenosis, moderate bilateral L5-S1 and L4-L5 neuroforaminal stenosis, bilateral lung consolidation possibly representing atelectasis with superimposed infection not excluded, trace right pleural effusion. Pelvis CT reporting circumferential wall thickening of the rectum/sigmoid colon , prominent mesenteric lymph nodes around the rectum also present direct visualization recommended to rule out mass, colonic diverticulosis, fat-containing right inguinal hernia, no evidence of fracture, mild to moderate bilateral hip osteoarthrosis and moderate degenerative changes of the spine. Vague historian, unsure of last colonoscopy. Denies nausea vomiting. Potassium 3.5-supplemented, renal function stable. 09/18/2023 continues to complain of back and rectal pain. Eliquis remains on hold, general surgery discussing colonoscopy for tomorrow. Renal function stable, Hemoglobin 10.2, platelets 193. Blood sugars controlled. 09/19/2023 Eliquis remains on hold. Patient initially was scheduled for colon oscopy today. patient developed increased difficulty swallowing, bowel prep and colonoscopy canceled by general surgery. General surgery scheduled patient for PEG tube placement for Friday. oxygen requirement increased from 2 to 6 L nasal cannula. [place] reported O2 sat of 93% on 6 L nasal cannula. Chest x-ray from last night reported right lower lobe infiltrate, minimal right pleural effusion. As the morning progressed, respiratory status declined, BiPAP and ABGs ordered. Upon entering the room to apply BiPAP, patient unresponsive and A team called, intubated and transferred to ICU. 09/19. Patient seen and examined. Dr. Rodriguez took over care from Dr. Kwok. Patient currently intubated and sedated. 09/20. Patient seen and examined. Blood work done this morning showed WBC 9.7, hemoglobin 8.7, platelet count 197, sodium 144, potassium 4.6, BUN 39, creatinine 2.37 09/29/2023 maintained on Zosyn and Eraxis.status post tracheostomy and PEG tube placement .Vent dependent, FiO2 50%/+10 of PEEP. Chest x-ray reporting stable with no change in bibasilar opacities. Currently off of pressors and diprovan. rectal tube with scant red drainage, scheduled for colonoscopy today. Tube f eeds on hold. hemoglobin 9.2, platelets 184. Afebrile, WBC 12.1. BUN 34, creatinine 2.8, bicarb 23, scheduled for hemodialysis today. Opens eyes to name. 09/29. Dr. Rodriguez took over care from Dr. Kwok. Patient has been trached and pegged REVIEW OF SYSTEMS: Cannot be obtained as patient only opens eyes PHYSICAL EXAMINATION: GENERAL: The patient is on vent HEENT: Pupils are round and equally reacting to light. EOMI. No scleral icterus. Trach collar seen CARDIOVASCULAR: S1 and S2 present. No murmurs, rubs, or gallops. PULMONARY: Chest is clear to auscultation, no wheezing or crackles. ABDOMEN: Soft, nontender, nondistended, normoactive bowel sounds. No palpable organomegaly. PEG tube seen MUSCULOSKELETAL: No joint swelling or deformity. EXTREMITIES: No cyanosis, clubbing, or pedal edema. NEUROLOGICAL: Currently on vent SKIN: No rashes. Assessment and plan Acute hypoxic and hypercapnic respiratory failure, status post reintubation on 09/19/2023. Suspect aspiration Acute DKA, anion gap closed , resolved Severe anion gap metabolic acidosis secondary to the above, status post bicarb drip. Hypotensive ,hypovolemic shock, status post pressor dependent, resolved Acute hypoxic respiratory failure, status post mechanical ventilator dependent. Acute left lower lobe pneumonia as per pulmonary, sputum culture, polymicrobial, reporting E. coli, Staphylococcus aureus-MSSA, strep agalactiae group B. Dysphagia, delayed swallowing, MBS completed-speech recommending dysphagia level 2 diet, one-to-one supervision, aspiration precautions Rectal pain, wall thickening of the rectum/sigmoid colon reported per CT Fat-containing right inguinal hernia reported per CT Hyperchloremic hypernatremia, resolved. Thrombocytopenia Paroxysmal atrial fibrillation Sepsis, secondary to all the above, resolved. Acute metabolic encephalopathy secondary to all the above, suspect anoxic. Brain CT did not report any acute abnormalities, EEG reported slowing suggestive of severe encephalopathy likely due to toxic metabolic derangement. Acute rhabdomyolysis Acute renal failure, improving Elevated troponin, multifactorial secondary to all the above, ACS ruled out,Type II IA as per cardiology. Severe dehydration Diabetes mellitus type 2, hemoglobin A1c 11.9 CAD, history of IA, stent History of seizure disorder, on Keppra Stage I pressure ulcer, 1 cm near rectum Fungal rash, anterior scrotum Hypokalemia Plan: Monitor vital sign Monitor CBC Monitor CMP Continue vent management per ICU aggressive bronchopulmonary hygiene Continue Eraxis Continue dialysis per nephrology Continue Kera monitor blood sugar levels, continue current insulin regimen ID following Critical care following Labs and medication were reviewed.. Continue same treatment. Continue with symptomatic treatment. Resume home medication. Monitor labs and vitals. DVT and GI prophylaxis. Further recommendations as per clinical course of the patient Dictation was produced using [employer] dictation software. please excuse any grammatical, word or spelling errors. Objective - Vital Signs Vital signs: Vital Signs Temp 97.7 F 09/30/23 08:00 Pulse 78 09/30/23 09:01 Resp 25 H 09/30/23 09:00 BP 104/56 09/30/23 09:00 Pulse Ox 98 09/30/23 09:00 FiO2 40 09/30/23 08:38 Intake & Output 09/29/23 09/30/23 09/30/23 18:59 06:59 18:59 Intake Total 382 876 129 Output Total 10 3626 Balance 372 -3527 129 Weight 112.1 kg 108.8 kg Intake: IV 352 276 69 0.9 sodium chloride 210 240 60 Anidulafungin 100 mg In 112 Sodium Chloride 0.9% 100 ml @ 84 mls/hr IVPB DAILY [facility] Rx#:[id number] Pressure Bag 30 36 9 Hemodialysis 400 Other 30 200 60 Output: Urine 10 5 Hemodialysis 2400 Hemodialysis Net Amount 1999 Other: Voiding Method Indwelling Catheter Indwelling Catheter ABP, PAP, CO, CI - Last Documented Arterial Blood Pressure 152/48 - Labs CBC & Chem 7: 09/30/23 04:28 09/30/23 04:28 Labs: Abnormal Lab Results - Last 24 Hours (Table) 09/29/23 09/29/23 09/30/23 Range/Units 11:48 18:04 04:28 WBC 12.0 H (3.8-10.6) k/uL RBC 3.29 L (4.30-5.90) m/uL Hgb 9.4 L (13.0-17.5) gm/dL Hct 29.5 L (39.0-53.0) % RDW 16.0 H (11.5-15.5) % Neutrophils # 10.8 H (1.3-7.7) k/uL Lymphocytes # 0.5 L (1.0-4.8) k/uL ABG pH (7.35-7.45) ABG pO2 (83-108) mmHg ABG O2 Saturation (94-97) % Sodium (137-145) mmol/L Carbon Dioxide (22-30) mmol/L BUN (9-20) mg/dL Creatinine (0.66-1.25) mg/dL Glucose (74-99) mg/dL POC Glucose (mg/dL) 137 H 136 H (70-110) mg/dL Calcium (8.4-10.2) mg/dL 09/30/23 09/30/23 09/30/23 Range/Units 04:28 05:18 06:50 WBC (3.8-10.6) k/uL RBC (4.30-5.90) m/uL Hgb (13.0-17.5) gm/dL Hct (39.0-53.0) % RDW (11.5-15.5) % Neutrophils # (1.3-7.7) k/uL Lymphocytes # (1.0-4.8) k/uL ABG pH 7.32 L (7.35-7.45) ABG pO2 134 H (83-108) mmHg ABG O2 Saturation 99.2 H (94-97) % Sodium 132 L (137-145) mmol/L Carbon Dioxide 19 L (22-30) mmol/L BUN 22 H (9-20) mg/dL Creatinine 2.22 H (0.66-1.25) mg/dL Glucose 112 H (74-99) mg/dL POC Glucose (mg/dL) 118 H (70-110) mg/dL Calcium 7.5 L (8.4-10.2) mg/dL Microbiology - Last 24 Hours (Table) 09/19/23 15:30 Acid Fast Bacilli Smear - Preliminary Bronchial Washings - Random Acid Fast Bacilli Culture - Preliminary 09/24/23 11:10 Blood Culture - Final Blood 09/24/23 10:58 Blood Culture - Final Blood
--- NOTE | 2023-09-30 15:07 | P.PN ---
Subjective Progress Note Date: 09/29/23 Principal diagnosis: Reason for follow-up is fever Patient is a 67-year-old male with a past medical history significant for coronary disease diabetes mellitus [place] seizure disorder history of diabetic foot infection status post bilateral big toe amputation presenting to the hospital with unresponsiveness patient was initially hypothermic subsequently started spiking fever initial workup with a chest x-ray and urine was negative.Patient is status post tracheostomy on 09/26/2023 On today's evaluation that is 09/29/2023,the patient remains to be afebrile, patient is on the ventilator FiO2 is currently stable at 40% no significant purulent secretions through the ET patient overall bleeding per rectum has decreased in intensity, patient undergoing dialysis and has been tolerating it. Patient white count is down to 12.1 creatinine is 2.80 Objective - Vital Signs Vital signs: Vital Signs Temp 96.9 F 09/29/23 12:00 Pulse 69 09/29/23 12:00 Resp 20 09/29/23 12:00 BP 116/62 09/29/23 12:00 Pulse Ox 97 09/29/23 12:00 FiO2 50 09/29/23 12:00 - Exam GENERAL DESCRIPTION: An elderly male intubated on the vent through the trach RESPIRATORY SYSTEM: Unlabored breathing , decreased breath sounds at bases HEART: S1 S2 regular rate and rhythm , ABDOMEN: Soft , no tenderness EXTREMITIES: Swelling to the leg but no redness - Labs CBC & Chem 7: 09/30/23 04:28 09/30/23 04:28 Labs: Abnormal Lab Results - Last 24 Hours (Table) 09/29/23 09/30/23 09/30/23 Range/Units 18:04 04:28 04:28 WBC 12.0 H (3.8-10.6) k/uL RBC 3.29 L (4.30-5.90) m/uL Hgb 9.4 L (13.0-17.5) gm/dL Hct 29.5 L (39.0-53.0) % RDW 16.0 H (11.5-15.5) % Neutrophils # 10.8 H (1.3-7.7) k/uL Lymphocytes # 0.5 L (1.0-4.8) k/uL ABG pH (7.35-7.45) ABG pO2 (83-108) mmHg ABG O2 Saturation (94-97) % Sodium 132 L (137-145) mmol/L Carbon Dioxide 19 L (22-30) mmol/L BUN 22 H (9-20) mg/dL Creatinine 2.22 H (0.66-1.25) mg/dL Glucose 112 H (74-99) mg/dL POC Glucose (mg/dL) 136 H (70-110) mg/dL Calcium 7.5 L (8.4-10.2) mg/dL 09/30/23 09/30/23 09/30/23 Range/Units 05:18 06:50 11:51 WBC (3.8-10.6) k/uL RBC (4.30-5.90) m/uL Hgb (13.0-17.5) gm/dL Hct (39.0-53.0) % RDW (11.5-15.5) % Neutrophils # (1.3-7.7) k/uL Lymphocytes # (1.0-4.8) k/uL ABG pH 7.32 L (7.35-7.45) ABG pO2 134 H (83-108) mmHg ABG O2 Saturation 99.2 H (94-97) % Sodium (137-145) mmol/L Carbon Dioxide (22-30) mmol/L BUN (9-20) mg/dL Creatinine (0.66-1.25) mg/dL Glucose (74-99) mg/dL POC Glucose (mg/dL) 118 H 129 H (70-110) mg/dL Calcium (8.4-10.2) mg/dL Microbiology - Last 24 Hours (Table) 09/19/23 15:30 Acid Fast Bacilli Smear - Preliminary Bronchial Washings - Random Acid Fast Bacilli Culture - Preliminary 09/24/23 11:10 Blood Culture - Final Blood 09/24/23 10:58 Blood Culture - Final Blood Assessment and Plan (1) Fever Current Visit: Yes Status: Acute Code(s): R50.9 - FEVER, UNSPECIFIED SNOMED Code(s): 316174027 (2) Pneumonia Current Visit: Yes Status: Acute Code(s): J18.9 - PNEUMONIA, UNSPECIFIED ORGANISM SNOMED Code(s): 638072649 (3) Diarrhea Current Visit: Yes Status: Acute Code(s): R19.7 - DIARRHEA, UNSPECIFIED SNOMED Code(s): 47389028 Plan: 1patient with an episode of less responsiveness and concern for possible aspiration but the patient has been transferred back to the ICU patient is status post bronchoscopy and cultures are currently growing Lisa albicans, patient has completed course of Zosyn and has been discontinued as of 09/29/2023 2patient did have a new fever source likely catheter associated UTI with urine growing yeast, the patient is on amiodarone and cannot use Diflucan, patient to continue with Eraxis 3patient also have developed bleeding per rectum, surgery is following the patient overall output has decreased stool for C. difficile x 2 has been nega tive patient is scheduled for colonoscopy this afternoon Dictation was produced using [employer] dictation software. please excuse any grammatical, word or spelling errors. Time with Patient: Less than 30
--- NOTE | 2023-09-30 15:08 | P.PN ---
Subjective Progress Note Date: 09/30/23 Principal diagnosis: Reason for follow-up is fever Patient is a 67-year-old male with a past medical history significant for coronary disease diabetes mellitus [place] seizure disorder history of diabetic foot infection status post bilateral big toe amputation presenting to the hospital with unresponsiveness patient was initially hypothermic subsequently started spiking fever initial workup with a chest x-ray and urine was negative.Patient is status post tracheostomy on 09/26/2023.Patient is status post colonoscopy completed on 09/28/2021 for with no evidence of any bleeding, colon was reported normal On today's evaluation that is 09/30/2023, the patient continues to be afebrile, the patient is on ventilator FiO2 is currently at 40% no purulent secretion through the ET patient is hemodynamic stable not requiring any pressor support and is undergoing dialysis. Patient white count is down to 12.0, creatinine is 2.22 Objective - Vital Signs Vital signs: Vital Signs Temp 97.8 F 09/30/23 12:00 Pulse 85 09/30/23 12:00 Resp 29 H 09/30/23 12:00 BP 132/65 09/30/23 11:00 Pulse Ox 97 09/30/23 12:00 FiO2 40 09/30/23 12:00 Intake & Output 09/29/23 09/30/23 09/30/23 18:59 06:59 18:59 Intake Total 382 876 338 Output Total 10 4405 0 Balance 372 -3529 338 Weight 112.1 kg 108.8 kg 108.8 kg Intake: IV 352 276 238 0.9 sodium chloride 210 240 120 Anidulafungin 100 mg In 112 100 Sodium Chloride 0.9% 100 ml @ 84 mls/hr IVPB DAILY [facility] Rx#:[id number] Pressure Bag 30 36 18 Tube Feeding 10 Hemodialysis 400 Other 30 200 90 Output: Urine 10 5 0 Hemodialysis 2400 Hemodialysis Net Amount 1999 Other: Voiding Method Indwelling Catheter Indwelling Catheter Indwelling Catheter ABP, PAP, CO, CI - Last Documented Arterial Blood Pressure 137/51 - Exam GENERAL DESCRIPTION: An elderly male intubated on the vent through the trach RESPIRATORY SYSTEM: Unlabored breathing , decreased breath sounds at bases HEART: S1 S2 regular rate and rhythm , ABDOMEN: Soft , no tenderness EXTREMITIES: Swelling to the leg but no redness - Labs CBC & Chem 7: 09/30/23 04:28 09/30/23 04:28 Labs: Abnormal Lab Results - Last 24 Hours (Table) 09/29/23 09/30/23 09/30/23 Range/Units 18:04 04:28 04:28 WBC 12.0 H (3.8-10.6) k/uL RBC 3.29 L (4.30-5.90) m/uL Hgb 9.4 L (13.0-17.5) gm/dL Hct 29.5 L (39.0-53.0) % RDW 16.0 H (11.5-15.5) % Neutrophils # 10.8 H (1.3-7.7) k/uL Lymphocytes # 0.5 L (1.0-4.8) k/uL ABG pH (7.35-7.45) ABG pO2 (83-108) mmHg ABG O2 Saturation (94-97) % Sodium 132 L (137-145) mmol/L Carbon Dioxide 19 L (22-30) mmol/L BUN 22 H (9-20) mg/dL Creatinine 2.22 H (0.66-1.25) mg/dL Glucose 112 H (74-99) mg/dL POC Glucose (mg/dL) 136 H (70-110) mg/dL Calcium 7.5 L (8.4-10.2) mg/dL 09/30/23 09/30/23 09/30/23 Range/Units 05:18 06:50 11:51 WBC (3.8-10.6) k/uL RBC (4.30-5.90) m/uL Hgb (13.0-17.5) gm/dL Hct (39.0-53.0) % RDW (11.5-15.5) % Neutrophils # (1.3-7.7) k/uL Lymphocytes # (1.0-4.8) k/uL ABG pH 7.32 L (7.35-7.45) ABG pO2 134 H (83-108) mmHg ABG O2 Saturation 99.2 H (94-97) % Sodium (137-145) mmol/L Carbon Dioxide (22-30) mmol/L BUN (9-20) mg/dL Creatinine (0.66-1.25) mg/dL Glucose (74-99) mg/dL POC Glucose (mg/dL) 118 H 129 H (70-110) mg/dL Calcium (8.4-10.2) mg/dL Microbiology - Last 24 Hours (Table) 09/19/23 15:30 Acid Fast Bacilli Smear - Preliminary Bronchial Washings - Random Acid Fast Bacilli Culture - Preliminary 09/24/23 11:10 Blood Culture - Final Blood 09/24/23 10:58 Blood Culture - Final Blood Assessment and Plan (1) Fever Current Visit: Yes Status: Acute Code(s): R50.9 - FEVER, UNSPECIFIED SNOMED Code(s): 218793840 (2) Pneumonia Current Visit: Yes Status: Acute Code(s): J18.9 - PNEUMONIA, UNSPECIFIED ORGANISM SNOMED Code(s): 096414351 (3) Diarrhea Current Visit: Yes Status: Acute Code(s): R19.7 - DIARRHEA, UNSPECIFIED SNOMED Code(s): 65556266 Plan: 1patient with an episode of less responsiveness and concern for possible aspiration but the patient has been transferred back to the ICU patient is status post bronchoscopy and cultures are currently growing Lisa albicans, patient has completed course of Zosyn and has been discontinued as of 09/29/2023 2patient did have a new fever source likely catheter associated UTI with urine growing yeast, the patient is on amiodarone and cannot use Diflucan, patient to continue short course of Eraxis 3patient also have developed bleeding per rectum, surgery is following the patient overall output has decreased stool for C. difficile x 2 has been negative patient is status post colonoscopy and reported colon is normal Dictation was produced using [employer] dictation software. please excuse any grammatical, word or spelling errors. Time with Patient: Less than 30
[2023-09-30 17:59] LABS: Glucose,Whole Blood 140 mg/dL (70-110)
[2023-10-01] LABS: Glucose,Whole Blood 146 mg/dL (70-110)
[2023-10-01 05:24] LABS: Anisocytosis Slight; Basophils % (A) 0 %; Eosinophils % (A) 1 %; HCT 28.4 % (39.0-53.0); Hypochromasia Slight; Lymphocytes # (A) 0.5 k/uL (1.0-4.8); Lymphocytes % (A) 6 %; MCH 28.4 pg (25.0-35.0); MCHC 31.6 g/dL (31.0-37.0); MCV 90.1 fL (80.0-100.0); Monocytes # (A) 0.4 k/uL (0-1.0); Monocytes % (A) 5 %; Neutrophils # (A) 7.4 k/uL (1.3-7.7); Neutrophils % (A) 87 %; Platelet Count 219 k/uL (150-450); RBC 3.15 m/uL (4.30-5.90); RDW 16.3 % (11.5-15.5); WBC 8.5 k/uL (3.8-10.6)
[2023-10-01 05:29] LABS: Glucose,Whole Blood 122 mg/dL (70-110)
[2023-10-01 05:34] LABS: African American GFR (CKD) 31 (>60 ml/min/1.73 sqM); Anion Gap 11 mmol/L; Blood Urea Nitrogen 19 mg/dL (9-20); Calcium 7.5 mg/dL (8.4-10.2); Carbon Dioxide 20 mmol/L (22-30); Chloride 100 mmol/L (98-107); Glucose 115 mg/dL (74-99); Non-African American GFR(CKD) 26 (>60 ml/min/1.73 sqM); Potassium 3.7 mmol/L (3.5-5.1); Sodium 131 mmol/L (137-145)
[2023-10-01 05:38] LABS: ABG Base Excess -2.4 mmol/L; ABG HCO3 23 mmol/L (21-25); ABG Oxygen Saturation 98.6 % (94-97); ABG PCO2 41 mmHg (35-45); ABG PH 7.36 (7.35-7.45); ABG PO2 104 mmHg (83-108); ABG TCO2 24 mmol/L (19-24); Allen Test Performed? Yes
[2023-10-01] MEDS: POTASSIUM BICARBONATE/CIT AC 20 MEQ TABLET.EFF PEG/G-TUBE ONE (06:47)
[2023-10-01] MEDS ORDERED: NOREPINEPHRINE 32 MG in SODIUM CHLORIDE 0.9% 218 ML IV SCH (07:45)
--- NOTE | 2023-10-01 07:59 | XR ---
EXAMINATION TYPE: XR chest 1V portable DATE OF EXAM: 10/01/2023 COMPARISON: 09/30/2023 HISTORY: SOB, Follow Up FINDINGS: Indwelling tubes and catheters are unchanged. Perihilar and basilar patchy infiltrates remain essentially unchanged. Stable appearance of the cardio-mediastinal structures at this time. IMPRESSION: 1. Stable portable chest. Clinical correlation and follow up until resolution is recommended.
--- NOTE | 2023-10-01 10:16 | P.PN ---
Subjective Progress Note Date: 10/01/23 Principal diagnosis: Acute kidney injury Patient is seen and examined in the ICU. He is alert with eyes open, not oriented. Has tracheostomy and PEG tube in place. Mechanical ventilation. Patient still requiring hemodialysis and will need long-term hemodialysis per recommendations from nephrology. Objective - Vital Signs Vital signs: Vital Signs Temp 98.3 F 10/01/23 08:00 Pulse 82 10/01/23 09:19 Resp 18 10/01/23 09:00 BP 147/72 10/01/23 09:00 Pulse Ox 97 10/01/23 09:00 FiO2 40 10/01/23 09:00 Intake & Output 09/30/23 10/01/23 10/01/23 18:59 06:59 18:59 Intake Total 1036 606 129 Output Total 5505 12 Balance -4469 594 129 Weight 108.8 kg 108 kg Intake: IV 376 276 69 0.9 sodium chloride 240 240 60 Anidulafungin 100 mg In 100 Sodium Chloride 0.9% 100 ml @ 84 mls/hr IVPB DAILY [facility] Rx#:[id number] Pressure Bag 36 36 9 Tube Feeding 70 270 60 Hemodialysis 500 Other 90 60 Output: Urine 5 12 Hemodialysis 3000 Hemodialysis Net Amount 2500 Other: Voiding Method Indwelling Catheter Indwelling Catheter Indwelling Catheter # Bowel Movements 1 ABP, PAP, CO, CI - Last Documented Arterial Blood Pressure 157/60 - Exam General appearance: The patient is alert, not oriented. On mechanical ventilation with tracheostomy HET: Head is normocephalic and atraumatic. Neck: Supple. Heart: Regular. Lungs: Equal expansion. Abdomen: Soft, PEG tube in place, nondistended. Extremities: Normal skin color and turgor. Right groin temporary HD catheter in place without any bleeding or hematoma. Neurological: Alert with eyes open, not oriented. - Labs CBC & Chem 7: 10/02/23 04:45 10/02/23 04:45 Labs: Abnormal Lab Results - Last 24 Hours (Table) 09/30/23 09/30/23 09/30/23 Range/Units 11:51 17:58 23:58 RBC (4.30-5.90) m/uL Hgb (13.0-17.5) gm/dL Hct (39.0-53.0) % RDW (11.5-15.5) % Lymphocytes # (1.0-4.8) k/uL ABG O2 Saturation (94-97) % Sodium (137-145) mmol/L Carbon Dioxide (22-30) mmol/L Creatinine (0.66-1.25) mg/dL Glucose (74-99) mg/dL POC Glucose (mg/dL) 129 H 140 H 146 H (70-110) mg/dL Calcium (8.4-10.2) mg/dL 10/01/23 10/01/23 10/01/23 Range/Units 05:10 05:10 05:27 RBC 3.15 L (4.30-5.90) m/uL Hgb 9.0 L (13.0-17.5) gm/dL Hct 28.4 L (39.0-53.0) % RDW 16.3 H (11.5-15.5) % Lymphocytes # 0.5 L (1.0-4.8) k/uL ABG O2 Saturation (94-97) % Sodium 131 L (137-145) mmol/L Carbon Dioxide 20 L (22-30) mmol/L Creatinine 2.45 H (0.66-1.25) mg/dL Glucose 115 H (74-99) mg/dL POC Glucose (mg/dL) 122 H (70-110) mg/dL Calcium 7.5 L (8.4-10.2) mg/dL 10/01/23 Range/Units 05:29 RBC (4.30-5.90) m/uL Hgb (13.0-17.5) gm/dL Hct (39.0-53.0) % RDW (11.5-15.5) % Lymphocytes # (1.0-4.8) k/uL ABG O2 Saturation 98.6 H (94-97) % Sodium (137-145) mmol/L Carbon Dioxide (22-30) mmol/L Creatinine (0.66-1.25) mg/dL Glucose (74-99) mg/dL POC Glucose (mg/dL) (70-110) mg/dL Calcium (8.4-10.2) mg/dL Assessment and Plan Assessment: Acute kidney injury requiring hemodialysis status post temporary HD catheter placement Acute kidney injury requiring long-term hemodialysis Acute hypoxic respiratory failure secondary to aspiration pneumonia status post tracheotomy, ventilator dependent Plan: 1. Continue hemodialysis per recommendations from nephrology 2. Tunneled hemodialysis catheter tentatively scheduled for today if consent is obtained 3. Hold tube feeding at 12:00 4. Please obtain consent from patient's son who is listed as next of kin Thank you for this consultation, we we will continue to follow. The impression and plan of care has been dictated as directed. Dr. Ochoa I performed a history and examination of this patient, discussed the same with the dictator. I agree with the dictator's note ,documented as a scribe. Any additional findings or plans will be noted. Per nursing staff family unwilling to sign consent as the do not want any more invasive procedures for their family member. Will hold at this time.
--- NOTE | 2023-10-01 11:04 | P.PN ---
Subjective Progress Note Date: 10/01/23 Principal diagnosis: 67-year-old male with past medical history significant for diabetes mellitus, prior toe amputations, hyperlipidemia, coronary artery disease with previous stents, and seizure disorder who presented to the ED on 09/06 with DKA unresponsive intubated and mechanically ventilated. Patient was admitted to the ICU for DKA, respiratory failure, and MARIANO. He remained in the ICU until 09/12 when he was transferred to the floors. On 09/18 he was scheduled for colonoscopy as well as PEG placement on 09/21. On 09/18 his O2 requirement increased from 2-6L NC. A Team was called and he was reintubated and transferred to the ICU. Patient was evaluated today on 09/18/2023, patient is about the same, continues to have some discomfort in his back and in his rectal area, supposed to have colonoscopy tomorrow. Eliquis remains on hold. Patient has no active pulmonary issues. WBC count is 8.6 hemoglobin 10.2 electrolytes are normal renal profile is normal The patient was seen today September 19, 2023 in follow-up on the selective care unit. Today he is found to be weak and obtunded. He is requiring more oxygen currently at 6 L high flow nasal cannula. A rapid response team was called on him. Chest x-ray and ABGs reviewed. He will be transferred to the intensive care unit. Serial blood gases on 100% FiO2 revealed a P O2 of 66, pCO2 of 49 and a pH of 7.32. White count 9.9. Hemoglobin 11.3. Platelets 233. Sodium 143. Potassium 4.5. Bicarb 26. BUN 17. Creatinine 0.87. Glucose 151. The patient has been having concerns of rectal pain and possible rectal mass and the plan was for colonoscopy. However the patient was having ongoing issues with difficulty in swallowing and was being considered for PEG tube placement. This was prior to his change in clinical status. X-ray did reveal a right lower lobe infiltrate with minimal right pleural effusion. Patient was evaluated today on 09/20/2023, patient developed a worsening pulmonary status yesterday, required transfer to the ICU intubation mechanical ventilation. I saw the patient yesterday, he underwent bronchoscopy, lines were placed and the patient, and he was kept on mechanical ventilation overnight. Patient is now on assist-control rate of 24 tidal volume 450 FiO2 was 80% farrah ier but is now 50%, and PEEP of 10 ABG showed a pO2 of 92 pCO2 47 pH of 7.30 his urine output is 5 to 20 cc/h, however his CVP is low and the patient will require more fluid boluses if no improvement after fluid boluses, then we will give the patient Lasix. In the meantime the patient is requiring propofol at 35 mg/kg/min norepinephrine at 0.06 mg/kg/min IV fluid running at 100 cc/h and the patient is also receiving vital HP at 10 cc/h antibiotics rosario he is receiving Flagyl and Zosyn. Chest x-ray continues to show bilateral infiltrates consistent with most likely aspiration pneumonia. Patient was seen by infectious disease and he is now on Flagyl and ZosynWBC count today is 13 hemoglobin 9.3 basic metabolic profile is normal renal profile showed a BUN of 29 creatinine 1.45 Patient was evaluated today on 09/21/2023, remains in the ICU, intubated and mechanically ventilated. Patient is on assist-control rate of 24 tidal volume 450 FiO2 50% and PEEP of 10 ABG showed a pO2 of 79 pCO2 43 pH of 7.26, apparently the patient developed some metabolic acidosis associated with acute kidney injury, and I have recommended 1 amp of bicarb to be given and sodium bicarb to be given orally and I also recommended nephrology evaluation on this patient as his renal status seems to be getting worse and the patient is having less and less urine output. CVP is around 7 patient will receive more fluids today, may consider Lasix depending on the response to fluid boluses. Urine output is extremely low. And again his renal functioning is getting worse. Patient remains on propofol at 50 mcg/kg/min he is also on norepinephrine at 0.03 mcg/kg/min, patient is receiving Glucerna 1.5/enteral feeding, patient remains on Lovenox 80 mg SQ twice daily, he is also on Zosyn and Flagyl. Chest x-ray continues to show bilateral infiltrates. Improved compared to his initial chest x-ray but nonetheless considered to be significant airspace disease bilaterally. Microbiology from the bronchial washing/lavage, showed mostly Lisa, Gram stains and cultures from previous sputum from 09/08/2023 showed E. coli Staph aureus and Streptococcus agalactiae Patient was evaluated today on 09/22/2023, remains in the ICU, intubated and mechanically ventilated. He is on propofol 25 mcg/kg/min, Levophed 0.09 mcg/kg/min, and .9 NS IVF at 10cc/h patient is on assist-control rate of 24 tidal volume 450 FiO2 50% and PEEP of 10. ABG shows pH 7.24 pCO2 42 and pO2 of 97. Patient exhibits normal anion gap metabolic acidosis. Sodium 145, potassium 4.4, chloride 119, CO2 16, BUN 46, creatinine 2.98, glucose 178, and albumin 1.7. He received Sodium bicarb orally, 1amp IVP bicarb, and 80 mg Lasix as per nephrology's recommendation due to patient's poor urine output despite fluids and Lasix. Renal ultrasound showed no hydronephrosis and a left renal cyst. X-ray shows worsening bibasilar infiltrates. Bronchial washings showed Lisa albicans. He is on Zosyn 25ml/hr. Patient was evaluated today on 09/23/2023, remains in ICU, intubated and mechanically ventilated. He is on propofol 50 mcg/kg/min, Levophed 0.06 mcg/kg/min, and 0.9 normal saline IV fluids at 10 cc/h. Patient is on assist-control rate of 24 tidal volume 450 FiO2 50% and PEEP of 10. ABG shows pH of 7.32 pCO2 of 44 and pO2 of 70. Sodium is 143, potassium 4.2, chloride 113, CO2 21, BUN 42, creatinine 3.07, glucose 164, cortisol 11.7 and TSH was 0.618. Urine output remains poor despite fluid restriction and Lasix. Nephrology has discontinued the Lasix drip of 10 mcg/h and placed the patient on 80 mg IVP twice daily. Patient was dialyzed 1L yesterday and is currently undergoing dialysis with a goal of 2.5 L and tolerating well. Patient has FMS in place. He is receiving Glucerna tube feeds at a rate of 35/h. Chest x-ray today remains unchanged shows bibasilar infiltrates with a small right pleural effusion. Patient was evaluated today on 09/24/2023, remains in ICU, intubated and mechanically ventilated. Overnight he was on propofol at a rate of 40 mcg/kg/min, Levophed 0.03 mcg/kg/min, and 0.9 normal saline at 10/h. Patient is on assist-control rate of 24, tidal volume 450, FiO2 50%, PEEP of 10. ABG shows pO2 of 78, CO2 43, pH 7.35. Sodium is 139, potassium 4.4, chloride 108, CO2 21, BUN 40, creatinine 3.11, glucose 194. Blood glucose levels have been ranging in the 200s over the last 24 hours. Urine output remains poor despite fluid restriction and Lasix 80 mg twice daily. Patient was dialyzed 2.9 L yesterday and is undergoing dialysis today with a goal of 3 L. Daily interruption of sedation was unsuccessful yesterday: Patient became asynchronous with the vent, was not arousable, and did not follow commands so SBT was not attempted. Patient has FMS in place. He is receiving Glucerna feeds at a rate of 35/hour. Chest x-ray shows bibasilar infiltrates with slight improvement. Patient has had mild low-grade fevers with a Tmax of 101.3. White count has increased to 13.4 from 9.1 yesterday. Blood culture from 09/19 shows no growth after 72 hours. Procalcitonin yesterday was 5.47. He remains on Zosyn. This morning propofol and Levophed were held for daily interruption of sedation and possible SBT today. Patient was evaluated today on 09/25/2023, remains in ICU, intubated and mechanically ventilated. He is on propofol at a rate of 40 mcg/kg/min, Levophed 0.03 mcg/kg/min, and 0.9 normal saline at 10/h. Patient is on assist control rate of 24, tidal volume 450, FiO2 50%, PEEP of 10. ABG shows PaO2 91, CO2 44, pH 7.4. Sodium is 136, potassium 3.8 which has been repleted, chloride 105, CO2 25, BUN 37, creatinine 2.94, glucose 161. Urine output remains poor despite flui d restriction and Lasix 80 mg twice daily. Patient was dialyzed 3 L yesterday and is undergoing dialysis today. Daily interruption of sedation was unsuccessful yesterday. Patient was not opening his eyes or moving his extremities, unable to follow commands, and asynchronous with the vent, so SBT was not attempted. Patient has FMS in place. He is receiving Glucerna feeds at a rate of 35 an hour. Chest x-ray shows worsening bibasilar consolidations. Patient had low-grade fever of 99.7. White count has decreased from 13.4 yesterday to 10.8 today. Blood culture, urine culture, and sputum culture have all been sent to the lab. Daily interruption of sedation & SBT as tolerated today. Attempts to contact family regarding possible trach and PEG are still ongoing due to patient's multiple unsuccessful attempts to wean off the ventilator. Patient was evaluated today on 09/26/2023, remains in ICU, intubated and mechanically ventilated. Propofol & Levophed have been held since yesterday at 1pm. He is on 0.9NS at KVO. Patient is on assist control rate of 24, tidal volume 450, FiO2 50%, PEEP of 10. ABG shows PaO2 71, CO2 41, pH 7.48. Sodium is 133, potassium 4.1, chloride 99, CO2 28, BUN 35, creatinine 2.76, glucose 187. Urine output remains poor despite fluid restriction and Lasix 80 mg twice daily. Patient was dialyzed 3 L yesterday. Despite being off sedation, patient remains obtunded. He only responds mildly to sternal rubs Patient has FMS in place. Overnight at about 2:40am, the patient developed bright red liquid stool, BP was 118/49 with a map of 67 and a heart rate of 86. Hemoglobin was 8.3. As per primary team. OG was changed to LIS and hemoglobin was repeated. Lovenox & Glucerna tube feeds was held due to scheduled trach & PEG today. Hemoglobin this morning was 7.7. He received 1 unit and 20mg Ddavp given to optimize him for surgery today. White count is 11.4 today. Urine culture showed growth of yeasts and Eraxis was started as per ID's recommendations. Patient was evaluated today on 09/27/2023, remains in ICU, status post trach and PEG yesterday. Tracheostomy tube is leaking but NG tube looks clean dry and intact. Levophed is running at 9.7 mcg/min and 0.9 normal saline at 10/h. Patient is on assist-control rate of 24 tidal volume 450 FiO2 60% PEEP of 10. ABG shows pO2 from 28 pCO2 45 and pH 7.34. Sodium 134, potassium 4.5, chloride 101, CO2 21, BUN 29, creatinine 2.47, and glucose 165. Urine output remains poor despite fluid restriction and Lasix 80 mg twice daily. Patient will be dialyzed today with a goal of 1 L. Patient has a FMS in place. Overnight the patient has had consistently bloody stools and put out about 900 overnight. Tube feeds are being held due to GI bleeding. Surgery recommends RBC tagged study. Hemoglobin was 7.5 this morning and he received his fifth unit of blood. White count is 20 today. Urine culture shows growth of yeasts. Patient remains on Eraxis and Zosyn. Progress note dated September 28, 2023. 67-year-old male who is still in the intensive care unit, on the mechanical ventilator. Vent settings include volume assist-control, rate 24, tidal volume 450, FiO2 60%, to be reduced down to 50%, PEEP of 10. Blood gases show pO2 147, pCO2 42, and a pH of 7.42. The patient is getting saline at 10 cc an hour, norepinephrine has been weaned off. He is scheduled for colonoscopy tomorrow, September 28. Since being here in the unit, and in the hospital, he is received a total of 7 units of packed red blood cells. His red blood cell study, was negative. Head CT was negative. He had hemodialysis yesterday, and 1 L was removed. Current labs include a white count 14.1, hemoglobin 7.4, hematocrit 22.3, and a platelet count of 270,000. Sodium 133, potassium 3.8, chlorides 102, CO2 23, BUN 29, creatinine 2.45. Glucose is 135. Albumin is 1.8. Chest x-ray shows bibasilar infiltrates or opacities. Patient was evaluated today on 09/29/2023, remains in ICU, on mechanical ventilator. Vent settings are assist-control, rate 24, tidal volume 450, FiO2 50%, PEEP of 10. Blood gases show pO2 106, CO2 pCO2 48, pH 7.34. Patient remains on 0.9% saline at 10 cc an hour, norepinephrine remains off. He is scheduled for colonoscopy & hemodialysis today. Since being on the unit he has received a total of 7 units of packed red blood cells. Tagged RBC study was negative. Head CT done on 09/27/2023 was unremarkable. Current labs include a white count of 12.1, hemoglobin 9.2, and platelets 184,000. Sodium 135, potassium 3.1 repleted, chloride 101, CO2 23, BUN 34, Creatinine 2.8, and glucose 108. Chest x-ray shows stable bibasilar infiltrates. Patient was evaluated today on 09/30/2023, remains in ICU, on mechanical ventilator. Vent settings are currently assist-control rate 24, tidal volume 450, FiO2 40%, and PEEP of 10. Blood gases this morning showed pO2 of 134, pCO2 42, pH 7.32 at FiO2 50%. Patient remains saline 10 cc an hour and is not on any sedation. Colonoscopy yesterday did not show any evidence of GI bleed. Hemodialysis yesterday yielded 2 L. Tube feeds remain held. Current labs include white count of 12, hemoglobin 9.4, platelets 208,000. Sodium 132, potassium 4.2, chloride 100, CO2 19, BUN 22, creatinine 2.22, and glucose 112. Chest x-ray shows stable bibasilar infiltrates. Progress note dated October 01, 2023. 67-year-old male evaluated today, remains in the ICU on mechanical ventilator. Vent settings are currently assist-control rate 24, 40% FiO2 and PEEP of 5. Gases this morning showed pO2 104, pCO2 41, pH 7.56. Patient remains on 0.9 normal saline at 20 mill per hour and glucerna at 30 with a goal of 40 as a colonoscopy did not show any evidence of GI bleed. Unable to place PICC line yesterday because the patient was on dialysis, they removed 2 L of fluid. The PICC line will be put in today. The patient is also getting hemodialysis today. Permacath will be put in today as per nephro. His labs show WBC 8.5, hemoglobin 9, platelets 219, sodium 131, potassium 3.7, chloride 100, BUN 19, creatinine 2.45. There was also some blood noted in the stool. Today the patient has been put on physician controlled patient initiated pressure limited flow cycle trial. Patient is on a short course of Eraxis. Chest x-ray shows stable bibasilar infiltrates. Prognosis is guarded. Will continue to follow and make recommendations. Objective - Vital Signs Vital signs: Vital Signs Temp 98.3 F 10/01/23 08:00 Pulse 82 10/01/23 09:19 Resp 18 10/01/23 09:00 BP 147/72 10/01/23 09:00 Pulse Ox 97 10/01/23 09:00 FiO2 40 10/01/23 09:00 Intake & Output 09/30/23 10/01/2309/30/24 18:59 06:59 18:59 Intake Total 1036 606 129 Output Total 5505 12 Balance -4469 594 129 Weight 108.8 kg 108 kg Intake: IV 376 276 69 0.9 sodium chloride 240 240 60 Anidulafungin 100 mg In 100 Sodium Chloride 0.9% 100 ml @ 84 mls/hr IVPB DAILY [facility] Rx#:[id number] Pressure Bag 36 36 9 Tube Feeding 70 270 60 Hemodialysis 500 Other 90 60 Output: Urine 5 12 Hemodialysis 3000 Hemodialysis Net Amount 2500 Other: Voiding Method Indwelling Catheter Indwelling Catheter Indwelling Catheter # Bowel Movements 1 ABP, PAP, CO, CI - Last Documented Arterial Blood Pressure 157/60 - Exam GENERAL EXAM: 67-year-old white male with tracheostomy & PEG tube, not in distress, generally edematous in all 4 extremities HEAD: Normocephalic and atraumatic EYES: Within normal NOSE: Clear with pink turbinates. THROAT: No erythema or exudates. Dry mucous membranes. NECK: No masses, no JVD. L Subclavian central line is noted. CHEST: No chest wall deformity. LUNGS: Good breath sound bilaterally mostly diminished at the bases no crackles rhonchi or wheezes CVS: S1 and S2 normal with no soft systolic murmur, regular rhythm. No extra heart sounds ABDOMEN: Abdomen flat, diminished bowel sounds, no hepatosplenomegaly, no guarding or rigidity. SKIN: No rashes CENTRAL NERVOUS SYSTEM: opens eyes, but does not track or follow commands Theatric: Could not assess EXTREMITIES: no clubbing, no cyanosis, trace bipedal edema. - Labs CBC & Chem 7: 10/01/23 05:10 10/01/23 05:10 Labs: Abnormal Lab Results - Last 24 Hours (Table) 09/30/23 09/30/23 09/30/23 Range/Units 11:51 17:58 23:58 RBC (4.30-5.90) m/uL Hgb (13.0-17.5) gm/dL Hct (39.0-53.0) % RDW (11.5-15.5) % Lymphocytes # (1.0-4.8) k/uL ABG O2 Saturation (94-97) % Sodium (137-145) mmol/L Carbon Dioxide (22-30) mmol/L Creatinine (0.66-1.25) mg/dL Glucose (74-99) mg/dL POC Glucose (mg/dL) 129 H 140 H 146 H (70-110) mg/dL Calcium (8.4-10.2) mg/dL 10/01/23 10/01/23 10/01/23 Range/Units 05:10 05:10 05:27 RBC 3.15 L (4.30-5.90) m/uL Hgb 9.0 L (13.0-17.5) gm/dL Hct 28.4 L (39.0-53.0) % RDW 16.3 H (11.5-15.5) % Lymphocytes # 0.5 L (1.0-4.8) k/uL ABG O2 Saturation (94-97) % Sodium 131 L (137-145) mmol/L Carbon Dioxide 20 L (22-30) mmol/L Creatinine 2.45 H (0.66-1.25) mg/dL Glucose 115 H (74-99) mg/dL POC Glucose (mg/dL) 122 H (70-110) mg/dL Calcium 7.5 L (8.4-10.2) mg/dL 10/01/23 Range/Units 05:29 RBC (4.30-5.90) m/uL Hgb (13.0-17.5) gm/dL Hct (39.0-53.0) % RDW (11.5-15.5) % Lymphocytes # (1.0-4.8) k/uL ABG O2 Saturation 98.6 H (94-97) % Sodium (137-145) mmol/L Carbon Dioxide (22-30) mmol/L Creatinine (0.66-1.25) mg/dL Glucose (74-99) mg/dL POC Glucose (mg/dL) (70-110) mg/dL Calcium (8.4-10.2) mg/dL Assessment and Plan Assessment: Acute hypoxic respiratory failure secondary to aspiration pneumonia s/p trach on 09/25 Acute kidney injury Malnutrition with severe hypoalbuminemia s/p PEG tube 09/26 Anasarca secondary to hypoalbuminemia Candiduria Unspecified bleeding source Hg 7.5 s/p 7 units RBCs Normal anion gap metabolic acidosis resolved Acute DKA resolved Hx of Type 2 DM Hx of B/L great toe amputations HX of Hyperlipidemia Hx of CAD with previous stent Hx of seizure disorder Plan: Continue ventilator support with physician controlled patient initiated pressure limited flow cycle trial Continue IVF at 20/hr HD today as tolerated Possible candidate for Permacath as per Nephro PICC line today Glucerna Consult select specialty Continue GI and DVT prophylaxis Continue Levemir insulin to 20 units for better glucose control Continue sliding scale NovoLog insulin as per protocol Continue Eraxis 84 mg q24hrs Patient is critically ill, prognosis is guarded Patient is critically ill and critical care time is over 30 Will continue to follow Time with Patient: Greater than 30
--- NOTE | 2023-10-01 11:19 | P.PN ---
Subjective patient is seen for follow-up for acute kidney injury. Started hemodialysis on 09/22/2023. Patient remains oliguric. Seen on hemodialysis today. family has refused a tunneled Dialysis catheter placement. They may be considering comfort/hospice care Objective - Vital Signs Vital signs: Vital Signs Temp 98.3 F 10/01/23 08:00 Pulse 82 10/01/23 09:19 Resp 18 10/01/23 09:00 BP 147/72 10/01/23 09:00 Pulse Ox 97 10/01/23 09:00 FiO2 40 10/01/23 09:00 Intake & Output 09/30/23 10/01/23 10/01/23 18:59 06:59 18:59 Intake Total 1036 606 129 Output Total 5505 12 Balance -4469 594 129 Weight 108.8 kg 108 kg Intake: IV 376 276 69 0.9 sodium chloride 240 240 60 Anidulafungin 100 mg In 100 Sodium Chloride 0.9% 100 ml @ 84 mls/hr IVPB DAILY [facility] Rx#:[id number] Pressure Bag 36 36 9 Tube Feeding 70 270 60 Hemodialysis 500 Other 90 60 Output: Urine 5 12 Hemodialysis 3000 Hemodialysis Net Amount 2500 Other: Voiding Method Indwelling Catheter Indwelling Catheter Indwelling Catheter # Bowel Movements 1 ABP, PAP, CO, CI - Last Documented Arterial Blood Pressure 157/60 - Exam Patient is awake. Status post trach. Patient remains on the vent. Examination of the heart S1 and S2 Examination of the lungs bilateral breath sounds are heard Abdomen is soft Examination lower extremity shows edema 2+ bilaterally - Labs CBC & Chem 7: 10/01/23 05:10 10/01/23 05:10 Labs: Abnormal Lab Results - Last 24 Hours (Table) 09/30/23 09/30/23 09/30/23 Range/Units 11:51 17:58 23:58 RBC (4.30-5.90) m/uL Hgb (13.0-17.5) gm/dL Hct (39.0-53.0) % RDW (11.5-15.5) % Lymphocytes # (1.0-4.8) k/uL ABG O2 Saturation (94-97) % Sodium (137-145) mmol/L Carbon Dioxide (22-30) mmol/L Creatinine (0.66-1.25) mg/dL Glucose (74-99) mg/dL POC Glucose (mg/dL) 129 H 140 H 146 H (70-110) mg/dL Calcium (8.4-10.2) mg/dL 10/01/23 10/01/23 10/01/23 Range/Units 05:10 05:10 05:27 RBC 3.15 L (4.30-5.90) m/uL Hgb 9.0 L (13.0-17.5) gm/dL Hct 28.4 L (39.0-53.0) % RDW 16.3 H (11.5-15.5) % Lymphocytes # 0.5 L (1.0-4.8) k/uL ABG O2 Saturation (94-97) % Sodium 131 L (137-145) mmol/L Carbon Dioxide 20 L (22-30) mmol/L Creatinine 2.45 H (0.66-1.25) mg/dL Glucose 115 H (74-99) mg/dL POC Glucose (mg/dL) 122 H (70-110) mg/dL Calcium 7.5 L (8.4-10.2) mg/dL 10/01/23 Range/Units 05:29 RBC (4.30-5.90) m/uL Hgb (13.0-17.5) gm/dL Hct (39.0-53.0) % RDW (11.5-15.5) % Lymphocytes # (1.0-4.8) k/uL ABG O2 Saturation 98.6 H (94-97) % Sodium (137-145) mmol/L Carbon Dioxide (22-30) mmol/L Creatinine (0.66-1.25) mg/dL Glucose (74-99) mg/dL POC Glucose (mg/dL) (70-110) mg/dL Calcium (8.4-10.2) mg/dL Assessment and Plan Assessment: 1. Acute kidney injury secondary to ATN secondary to hypotension requiring vasopressor support. Baseline creatinine near 1. Oliguric. No hydronephrosis noted on kidney ultrasound. Started on hemodialysis September 21 to 2023 via temporary catheter dialysis catheter. Patient remains oliguric and maintained on daily dialysis mostly for UF. 2. Septic shock secondary to pneumonia on antibiotics. ID following. 3. Metabolic acidosis secondary to acute kidney injury and IV fluids. Improved. 4. Acute hypoxic respiratory failure secondary to pneumonia. Intubated. 5. DKA on presentation status post insulin drip. 6. Hyperphosphatemia secondary to acute kidney injury. Phosphorus level 5.5 dated September 22, 2023. 7. Volume overload. Plan: hemodialysis today and repeat in a.m. Increase UF as tolerated.
[2023-10-01 11:46] LABS: Glucose,Whole Blood 145 mg/dL (70-110)
--- NOTE | 2023-10-01 13:23 | P.PN ---
Subjective Progress Note Date: 10/01/23 CHIEF COMPLAINT: rectal pain HISTORY OF PRESENT ILLNESS: 67-year-old male admitted to the hospital for DKA. patient is status post tracheostomy and PEG tube placement. Patient status post colonoscopy which was reported as normal but limited view to due to large amount of liquidy stool. Patient has had no further bloody stools. Patient is tolerating tube feeds at 30ml per hour. He was getting hemodialysis this morning. Afebrile. WBC 8.5 Hgb 9.0 platelets 219 PHYSICAL EXAM: VITAL SIGNS: Reviewed GENERAL: no acute distress. Neck: trach site clean dry and intact ABDOMEN: Soft. Nondistended. PEG tube site clean dry and intact ASSESSMENT: 1. Acute hypoxic respiratory failure secondary to aspiration pneumonia. status post trach 2. Severe protein calorie malnutrition 3. GI bleed and Wall thickening of the rectum and sigmoid colon noted on CT. Status post colonoscopy PLAN: -Continue ICU management -Continue supportive care -Continue tube feeds Physician Distribution A Class Lineman note has been reviewed by physician. Signing provider agrees with the documented findings, assessment, and plan of care. Objective - Vital Signs Vital signs: Vital Signs Temp 98.3 F 10/01/23 08:00 Pulse 84 10/01/23 12:38 Resp 27 H 10/01/23 12:38 BP 145/74 10/01/23 12:00 Pulse Ox 96 10/01/23 12:00 FiO2 40 10/01/23 12:23 Intake & Output 09/30/23 10/01/23 10/01/23 18:59 06:59 18:59 Intake Total 1036 606 298 Output Total 5505 12 Balance -4469 594 298 Weight 108.8 kg 108 kg Intake: IV 376 276 138 0.9 sodium chloride 240 240 120 Anidulafungin 100 mg In 100 Sodium Chloride 0.9% 100 ml @ 84 mls/hr IVPB DAILY [facility] Rx#:[id number] Pressure Bag 36 36 18 Tube Feeding 70 270 160 Hemodialysis 500 Other 90 60 Output: Urine 5 12 Hemodialysis 3000 Hemodialysis Net Amount 2500 Other: Voiding Method Indwelling Catheter Indwelling Catheter Indwelling Catheter # Bowel Movements 1 ABP, PAP, CO, CI - Last Documented Arterial Blood Pressure 162/60 - Labs CBC & Chem 7: 10/01/23 05:10 10/01/23 05:10 Labs: Abnormal Lab Results - Last 24 Hours (Table) 09/30/23 09/30/23 10/01/23 Range/Units 17:58 23:58 05:10 RBC 3.15 L (4.30-5.90) m/uL Hgb 9.0 L (13.0-17.5) gm/dL Hct 28.4 L (39.0-53.0) % RDW 16.3 H (11.5-15.5) % Lymphocytes # 0.5 L (1.0-4.8) k/uL ABG O2 Saturation (94-97) % Sodium (137-145) mmol/L Carbon Dioxide (22-30) mmol/L Creatinine (0.66-1.25) mg/dL Glucose (74-99) mg/dL POC Glucose (mg/dL) 140 H 146 H (70-110) mg/dL Calcium (8.4-10.2) mg/dL 10/01/23 10/01/23 10/01/23 Range/Units 05:10 05:27 05:29 RBC (4.30-5.90) m/uL Hgb (13.0-17.5) gm/dL Hct (39.0-53.0) % RDW (11.5-15.5) % Lymphocytes # (1.0-4.8) k/uL ABG O2 Saturation 98.6 H (94-97) % Sodium 131 L (137-145) mmol/L Carbon Dioxide 20 L (22-30) mmol/L Creatinine 2.45 H (0.66-1.25) mg/dL Glucose 115 H (74-99) mg/dL POC Glucose (mg/dL) 122 H (70-110) mg/dL Calcium 7.5 L (8.4-10.2) mg/dL 10/01/23 Range/Units 11:45 RBC (4.30-5.90) m/uL Hgb (13.0-17.5) gm/dL Hct (39.0-53.0) % RDW (11.5-15.5) % Lymphocytes # (1.0-4.8) k/uL ABG O2 Saturation (94-97) % Sodium (137-145) mmol/L Carbon Dioxide (22-30) mmol/L Creatinine (0.66-1.25) mg/dL Glucose (74-99) mg/dL POC Glucose (mg/dL) 145 H (70-110) mg/dL Calcium (8.4-10.2) mg/dL
--- NOTE | 2023-10-01 13:59 | P.PN ---
Subjective Progress Note Date: 10/01/23 Romel Malin is a 67-year-old male with past medical history significant for diabetes mellitus, prior toe amputations, hyperlipidemia, coronary artery disease with previous stents, and seizure disorder. He is currently intubated to the mechanical ventilator, unresponsive without any sedation, unable to provide any information. Patient was transferred from [facility] late last night. Apparently, found unresponsive by his girlfriend, and last known well was 24 hours prior. Patient was intubated by EMS on arrival and triaged to [facility]. Initial presentation was consistent with DKA. Subsequently, the patient was transferred to [facility]. Patient is currently in trauma bay 1, he is intubated mechanical ventilator. Chest x-ray on arrival to our facility shows the endotracheal tube in satisfactory position approximately 4 cm above the mahesh. There is an orogastric tube that should be advanced. Right IJ central line catheter appears to terminate at the Cavo atrial junction. No focal infiltrates or evidence of pneumonia. Current ventilator settings are assist-control, respiratory rate 14, tidal volume 500, FiO2 35%, PEEP of 5. He is breathing slightly above set rate. Not on any sedation. Remains unresponsive even to deep painful stimuli. CT of the brain did not show any acute intracranial hemorrhage or mass effect. ABG is consistent with profound metabolic acidosis, with a PaO2 of 204, pCO2 of 25, pH of 7.04. Patient has been given a total of 2 A of bicarb. He is hypotensive and in a shock state, he has been fluid resuscitated with at least 2.5 L crystalloid fluid. No insulin infusion is currently ordered. He remains profoundly hypotensive, and has been started on norepinephrine which is currently infusing at 0.06 mcg/kg/min. CBC: WBC count 8.8, hemoglobin 14.5, hematocrit 50.3, platelets 136. CMP: Sodium 143, potassium 5.2, chloride 115, serum bicarb less than 5, anion gap unmeasurable, BUN 134, creatinine 4.29, gluc ose 910. Lactic 1.1. LFTs not elevated. Total bilirubin 0.7. Ammonia less than 9. CPK was 882. Troponin 0.084. NT BNP 2720. EKG shows normal sinus rhythm and is nondiagnostic for acute ischemia. Urinalysis positive for glucose and ketones. Urine toxicology screen at outside facility was essentially negative. Serum alcohol less than 10. Patient will be admitted to the intensive care unit once bed available. 09/09/2023 Patient grimaces to pain but does not follow commands. He remains off sedatives. Suspect to be hypoxic encephalopathy. Neurolgy was consulted and advises mentation is likely due to metabolic injury. CT scan of the brain yesterday that showed no midline shift or swelling. Patient anion gap has closed with an anion gap of 6, bicarb 17. Potassium at 3.3. Replacement ongoing per protocol. Blood sugars 879. Insulin IV will be discontinued and will transiotion to Insulin detemir SQ. Patient began to show increased breathing on the mechanical ventilator and was switched to pressure control rate of 20, tidal volume of 500, FiO2 of 35%, and a PEEP of 5. ABG showed pH of 7.4 with a pCO2 of 29 and pO2 of 103. WBC is at 5 with a hemoglobin of 12 and a platelet count of 62. Heparin SQ discontinued. Chest x-ray show atelectatic changes in lung base bilaterally. Sputum is showing 09/09 Patient still encephaolpathic but now opens eyes to command, moves arms independently, only grimaces to pain. Patient still intubated and comfortable on current vent settings. Still not on any sedation. Potassium replacement on going as per protocol but on the uptrend latest at 3.5 . Glucose at the 211 and sustaining at levels of 200s. On Glucerna 1.5 rate at 30cc/hr via enteral feeding. Insulin increased to 25 units and on sliding scale coverage. Sputum culture grew gram-negative bacillus and presumptive Staph aureus. started on IV Cefepime. WBC 4.7, hemoglobin 11.4, hematocrit 35 and platelet count 49. Blood pressures increase at 140-160/60-80. Started on IV hydralazine 10mg PRN. Afebrile on assessment. Sodium elevated trend at 152. 0.45% normal saline discontinued and start on free water through OG tube. 09/10. Patient seen and examined. Continues to be intubated at the bedside, all questions answered 09/11. Patient seen and examined. Patient extubated this morning, following commands, currently on oxygen via nasal cannula 09/12. Patient seen and examined. Labs done this morning showed WBC 7.6, hemoglobin 10.8, platelet count 90, sodium 149, potassium 3.6, BUN 36, creatinine 1.06. Patient getting chest PT 09/13. Patient seen and examined. Currently on thickened liquid diet. Speech evaluation pending. Decrease fluids. 09/15/2023 telemetry sinus rhythm. Continues on amiodarone, Farxiga. Anticoagulated on Eliquis. Confused this morning, alert and oriented to person, knows he is in the hospital but thinks he is in [place], [place]. Maintaining O2 sat of 94% on 2 L nasal cannula on cefepime and nebulized bronchodilators. Choking on applesauce during speech therapy's evaluation, modified barium swallow ordered. Blood sugars in the low 200s during the night, better controlled this morning, 132. Hemoglobin A1c 11.9. 09/16/2023 MBS results noted-speech therapy recommending ground meats, nectar liquids, no straw, liquids from cup, small bites and sips with direct supervision , sitting upright 90 degrees and ongoing speech therapy. O2 sats improved, 97% on 2 L nasal cannula. Maintained on cefepime as per ID, afebrile, normal WBC. Hemoglobin 10, platelets 146. Potassium 2.9-supplementation and magnesium level ordered. Blood sugars better controlled. Renal function stable. Telemetry sinus rhythm. PT pending. 09/17/2023 Maintained on cefepime.yesterday Ochoa catheter discontinued but patient developed urinary retention and Ochoa catheter reinserted .ongoing lower back and rectal pain. lumbar CT reported no evidence for spinal fracture, moderate degeneration changes without evidence for significant spinal canal stenosis, moderate bilateral L5-S1 and L4-L5 neuroforaminal stenosis, bilateral lung consolidation possibly representing atelectasis with superimposed infection not excluded, trace right pleural effusion. Pelvis CT reporting circumferential wall thickening of the rectum/sigmoid colon , prominent mesenteric lymph nodes around the rectum also present direct visualization recommended to rule out mass, colonic diverticulosis, fat-containing right inguinal hernia, no evidence of fracture, mild to moderate bilateral hip osteoarthrosis and moderate degenerative changes of the spine. Vague historian, unsure of last colonoscopy. Denies nausea vomiting. Potassium 3.5-supplemented, renal function stable. 09/18/2023 continues to complain of back and rectal pain. Eliquis remains on hold, general surgery discussing colonoscopy for tomorrow. Renal function stable, Hemoglobin 10.2, platelets 193. Blood sugars controlled. 09/19/2023 Eliquis remains on hold. Patient initially was scheduled for colon oscopy today. patient developed increased difficulty swallowing, bowel prep and colonoscopy canceled by general surgery. General surgery scheduled patient for PEG tube placement for Friday. oxygen requirement increased from 2 to 6 L nasal cannula. Wendick reported O2 sat of 93% on 6 L nasal cannula. Chest x-ray from last night reported right lower lobe infiltrate, minimal right pleural effusion. As the morning progressed, respiratory status declined, BiPAP and ABGs ordered. Upon entering the room to apply BiPAP, patient unresponsive and A team called, intubated and transferred to ICU. 09/19. Patient seen and examined. Dr. Rodriguez took over care from Dr. Kwok. Patient currently intubated and sedated. 09/20. Patient seen and examined. Blood work done this morning showed WBC 9.7, hemoglobin 8.7, platelet count 197, sodium 144, potassium 4.6, BUN 39, creatinine 2.37 09/29/2023 maintained on Zosyn and Eraxis.status post tracheostomy and PEG tube placement .Vent dependent, FiO2 50%/+10 of PEEP. Chest x-ray reporting stable with no change in bibasilar opacities. Currently off of pressors and diprovan. rectal tube with scant red drainage, scheduled for colonoscopy today. Tube f eeds on hold. hemoglobin 9.2, platelets 184. Afebrile, WBC 12.1. BUN 34, creatinine 2.8, bicarb 23, scheduled for hemodialysis today. Opens eyes to name. 09/29. Dr. Rodriguez took over care from Dr. Kwok. Patient has been trached and pegged 09/30. Patient seen and examined. Patient currently undergoing dialysis. Family leaning towards hospice REVIEW OF SYSTEMS: Cannot be obtained as patient only opens eyes PHYSICAL EXAMINATION: GENERAL: The patient is on vent HEENT: Pupils are round and equally reacting to light. EOMI. No scleral icterus. Trach collar seen CARDIOVASCULAR: S1 and S2 present. No murmurs, rubs, or gallops. PULMONARY: Chest is clear to auscultation, no wheezing or crackles. ABDOMEN: Soft, nontender, nondistended, normoactive bowel sounds. No palpable organomegaly. PEG tube seen MUSCULOSKELETAL: No joint swelling or deformity. EXTREMITIES: No cyanosis, clubbing, or pedal edema. NEUROLOGICAL: Currently on vent SKIN: No rashes. Assessment and plan Acute hypoxic and hypercapnic respiratory failure, status post reintubation on 09/19/2023. Suspect aspiration Acute DKA, anion gap closed , resolved Severe anion gap metabolic acidosis secondary to the above, status post bicarb drip. Hypotensive ,hypovolemic shock, status post pressor dependent, resolved Acute hypoxic respiratory failure, status post mechanical ventilator dependent. Acute left lower lobe pneumonia as per pulmonary, sputum culture, polymicrobial, reporting E. coli, Staphylococcus aureus-MSSA, strep agalactiae group B. Dysphagia, delayed swallowing, MBS completed-speech recommending dysphagia level 2 diet, one-to-one supervision, aspiration precautions Rectal pain, wall thickening of the rectum/sigmoid colon reported per CT Fat-containing right inguinal hernia reported per CT Hyperchloremic hypernatremia, resolved. Thrombocytopenia Paroxysmal atrial fibrillation Sepsis, secondary to all the above, resolved. Acute metabolic encephalopathy secondary to all the above, suspect anoxic. Brain CT did not report any acute abnormalities, EEG reported slowing suggestive of severe encephalopathy likely due to toxic metabolic derangement. Acute rhabdomyolysis Acute renal failure, improving Elevated troponin, multifactorial secondary to all the above, ACS ruled out,Type II [place] as per cardiology. Severe dehydration Diabetes mellitus type 2, hemoglobin A1c 11.9 CAD, history of [place], stent History of seizure disorder, on Keppra Stage I pressure ulcer, 1 cm near rectum Fungal rash, anterior scrotum Hypokalemia Plan: Monitor vital sign Monitor CBC Monitor CMP Continue vent management per ICU aggressive bronchopulmonary hygiene Continue Eraxis Continue [facility] blood sugar levels, continue current insulin regimen ID following Critical care following Family leaning towards hospice Labs and medication were reviewed.. Continue same treatment. Continue with symptomatic treatment. Resume home medication. Monitor labs and vitals. DVT and GI prophylaxis. Further recommendations as per clinical course of the patient Dictation was produced using [employer] dictation software. please excuse any grammatical, word or spelling errors. Objective - Vital Signs Vital signs: Vital Signs Temp 98.3 F 10/01/23 08:00 Pulse 81 10/01/23 13:45 Resp 24 10/01/23 13:45 BP 160/80 10/01/23 13:45 Pulse Ox 98 10/01/23 13:45 FiO2 40 10/01/23 13:00 Intake & Output 09/30/23 10/01/23 10/01/23 18:59 06:59 18:59 Intake Total 1036 606 361 Output Total 5505 12 Balance -4469 594 361 Weight 108.8 kg 108 kg Intake: IV 376 276 161 0.9 sodium chloride 240 240 140 Anidulafungin 100 mg In 100 Sodium Chloride 0.9% 100 ml @ 84 mls/hr IVPB DAILY [facility] Rx#:[id number] Pressure Bag 36 36 21 Tube Feeding 70 270 200 Hemodialysis 500 Other 90 60 Output: Urine 5 12 Hemodialysis 3000 Hemodialysis Net Amount 2500 Other: Voiding Method Indwelling Catheter Indwelling Catheter Indwelling Catheter # Bowel Movements 1 ABP, PAP, CO, CI - Last Documented Arterial Blood Pressure 171/54 - Labs CBC & Chem 7: 10/01/23 05:10 10/01/23 05:10 Labs: Abnormal Lab Results - Last 24 Hours (Table) 09/30/23 09/30/23 10/01/23 Range/Units 17:58 23:58 05:10 RBC 3.15 L (4.30-5.90) m/uL Hgb 9.0 L (13.0-17.5) gm/dL Hct 28.4 L (39.0-53.0) % RDW 16.3 H (11.5-15.5) % Lymphocytes # 0.5 L (1.0-4.8) k/uL ABG O2 Saturation (94-97) % Sodium (137-145) mmol/L Carbon Dioxide (22-30) mmol/L Creatinine (0.66-1.25) mg/dL Glucose (74-99) mg/dL POC Glucose (mg/dL) 140 H 146 H (70-110) mg/dL Calcium (8.4-10.2) mg/dL 10/01/23 10/01/23 10/01/23 Range/Units 05:10 05:27 05:29 RBC (4.30-5.90) m/uL Hgb (13.0-17.5) gm/dL Hct (39.0-53.0) % RDW (11.5-15.5) % Lymphocytes # (1.0-4.8) k/uL ABG O2 Saturation 98.6 H (94-97) % Sodium 131 L (137-145) mmol/L Carbon Dioxide 20 L (22-30) mmol/L Creatinine 2.45 H (0.66-1.25) mg/dL Glucose 115 H (74-99) mg/dL POC Glucose (mg/dL) 122 H (70-110) mg/dL Calcium 7.5 L (8.4-10.2) mg/dL 10/01/23 Range/Units 11:45 RBC (4.30-5.90) m/uL Hgb (13.0-17.5) gm/dL Hct (39.0-53.0) % RDW (11.5-15.5) % Lymphocytes # (1.0-4.8) k/uL ABG O2 Saturation (94-97) % Sodium (137-145) mmol/L Carbon Dioxide (22-30) mmol/L Creatinine (0.66-1.25) mg/dL Glucose (74-99) mg/dL POC Glucose (mg/dL) 145 H (70-110) mg/dL Calcium (8.4-10.2) mg/dL
[2023-10-01] MEDS: amLODIPine 5 MG TAB PEG/G-TUBE SCH (14:48)
[2023-10-01 17:58] LABS: Glucose,Whole Blood 166 mg/dL (70-110)
[2023-10-01 23:33] LABS: Glucose,Whole Blood 189 mg/dL (70-110)
[2023-10-02 04:05] VITALS: BP 151/77
[2023-10-02 05:11] LABS: Basophils % (A) 0 %; Eosinophils # (A) 0.1 k/uL (0-0.7); Eosinophils % (A) 1 %; HCT 25.9 % (39.0-53.0); HGB 8.3 gm/dL (13.0-17.5); Hypochromasia Slight; Lymphocytes # (A) 0.4 k/uL (1.0-4.8); Lymphocytes % (A) 5 %; MCH 28.7 pg (25.0-35.0); MCHC 32.1 g/dL (31.0-37.0); MCV 89.5 fL (80.0-100.0); Mean Platelet Volume 8.7; Monocytes # (A) 0.3 k/uL (0-1.0); Monocytes % (A) 5 %; Neutrophils # (A) 6.6 k/uL (1.3-7.7); Neutrophils % (A) 88 %; Platelet Count 225 k/uL (150-450); WBC 7.5 k/uL (3.8-10.6)
[2023-10-02 05:30] LABS: African American GFR (CKD) 35 (>60 ml/min/1.73 sqM); Anion Gap 3 mmol/L; Blood Urea Nitrogen 19 mg/dL (9-20); Calcium 7.3 mg/dL (8.4-10.2); Carbon Dioxide 29 mmol/L (22-30); Chloride 100 mmol/L (98-107); Glucose 162 mg/dL (74-99); Non-African American GFR(CKD) 30 (>60 ml/min/1.73 sqM); Potassium 3.9 mmol/L (3.5-5.1); Sodium 132 mmol/L (137-145)
[2023-10-02 05:39] LABS: ABG Base Excess 5.7 mmol/L; ABG HCO3 30 mmol/L (21-25); ABG Oxygen Saturation 98.6 % (94-97); ABG PCO2 43 mmHg (35-45); ABG PH 7.46 (7.35-7.45); ABG PO2 92 mmHg (83-108); ABG TCO2 31 mmol/L (19-24); Allen Test Performed? Yes
[2023-10-02 05:41] LABS: Glucose,Whole Blood 173 mg/dL (70-110)
[2023-10-02] MEDS: POTASSIUM BICARBONATE/CIT AC 20 MEQ TABLET.EFF NG-TUBE SCH (06:47)
--- NOTE | 2023-10-02 07:40 | XR ---
EXAMINATION TYPE: XR chest 1V portable DATE OF EXAM: 10/02/2023 COMPARISON: 10/01/2023 HISTORY: SOB, Follow Up FINDINGS: Indwelling tubes and catheters are unchanged. No change in perihilar and bibasilar opacities. Stable appearance of the cardio-mediastinal structures at this time. Pleural effusion unchanged. IMPRESSION: 1. Stable portable chest. Clinical correlation and follow up until resolution is recommended.
[2023-10-02] MEDS: METOPROLOL TARTRATE 25 MG TAB PO SCH (08:44)
--- NOTE | 2023-10-02 08:46 | P.PN ---
Subjective Progress Note Date: 10/02/23 Principal diagnosis: Acute kidney injury Patient is seen and examined in the ICU. Has tracheostomy and PEG tube in place. Mechanical ventilation. Patient still requiring hemodialysis and will need long-term hemodialysis per recommendations from nephrology. Scheduled yesterday for tunneled catheter placement however patient's son did not want any further invasive procedures on his father. Patient has been made a no code and there is talks about possible hospice care. Objective - Vital Signs Vital signs: Vital Signs Temp 98.7 F 10/02/23 04:00 Pulse 75 10/02/23 07:00 Resp 24 10/02/23 07:00 BP 151/77 10/02/23 07:00 Pulse Ox 91 L 10/02/23 07:00 FiO2 40 10/02/23 04:00 Intake & Output 10/01/23 10/02/23 10/02/23 18:59 06:59 18:59 Intake Total 1266 876 23 Output Total 6500 17 0 Balance -5234 859 23 Weight 105.3 kg Intake: IV 276 276 23 0.9 sodium chloride 240 240 20 Pressure Bag 36 36 3 Tube Feeding 400 480 Hemodialysis 500 Other 90 120 Output: Urine 0 17 0 Hemodialysis 3500 Hemodialysis Net Amount 3000 Other: Voiding Method Indwelling Catheter Indwelling Catheter ABP, PAP, CO, CI - Last Documented Arterial Blood Pressure 149/47 - Exam General appearance: The patient appears comfortable in no distress, on mechanical ventilation with tracheostomy HET: Head is normocephalic and atraumatic. Neck: Supple. Heart: Regular. Lungs: Equal expansion. Abdomen: Soft, PEG tube in place, nondistended. Extremities: Normal skin color and turgor. Right groin temporary HD catheter in place without any bleeding or hematoma. Neurological: Resting. - Labs CBC & Chem 7: 10/02/23 04:45 10/02/23 04:45 Labs: Abnormal Lab Results - Last 24 Hours (Table) 10/01/23 10/01/23 10/01/23 Range/Units 11:45 17:56 23:32 RBC (4.30-5.90) m/uL Hgb (13.0-17.5) gm/dL Hct (39.0-53.0) % RDW (11.5-15.5) % Lymphocytes # (1.0-4.8) k/uL ABG pH (7.35-7.45) ABG HCO3 (21-25) mmol/L ABG Total CO2 (19-24) mmol/L ABG O2 Saturation (94-97) % Sodium (137-145) mmol/L Creatinine (0.66-1.25) mg/dL Glucose (74-99) mg/dL POC Glucose (mg/dL) 145 H 166 H 189 H (70-110) mg/dL Calcium (8.4-10.2) mg/dL 10/02/23 10/02/23 10/02/23 Range/Units 04:45 04:45 05:33 RBC 2.90 L (4.30-5.90) m/uL Hgb 8.3 L (13.0-17.5) gm/dL Hct 25.9 L (39.0-53.0) % RDW 16.0 H (11.5-15.5) % Lymphocytes # 0.4 L (1.0-4.8) k/uL ABG pH 7.46 H (7.35-7.45) ABG HCO3 30 H (21-25) mmol/L ABG Total CO2 31 H (19-24) mmol/L ABG O2 Saturation 98.6 H (94-97) % Sodium 132 L (137-145) mmol/L Creatinine 2.20 H (0.66-1.25) mg/dL Glucose 162 H (74-99) mg/dL POC Glucose (mg/dL) (70-110) mg/dL Calcium 7.3 L (8.4-10.2) mg/dL 10/02/23 Range/Units 05:40 RBC (4.30-5.90) m/uL Hgb (13.0-17.5) gm/dL Hct (39.0-53.0) % RDW (11.5-15.5) % Lymphocytes # (1.0-4.8) k/uL ABG pH (7.35-7.45) ABG HCO3 (21-25) mmol/L ABG Total CO2 (19-24) mmol/L ABG O2 Saturation (94-97) % Sodium (137-145) mmol/L Creatinine (0.66-1.25) mg/dL Glucose (74-99) mg/dL POC Glucose (mg/dL) 173 H (70-110) mg/dL Calcium (8.4-10.2) mg/dL Assessment and Plan Assessment: Acute kidney injury requiring hemodialysis status post temporary HD catheter placement Acute kidney injury requiring long-term hemodialysis Acute hypoxic respiratory failure secondary to aspiration pneumonia status post tracheotomy, ventilator dependent Plan: 1. Continue hemodialysis per recommendations from nephrology 2. Tunneled hemodialysis catheter placement currently on hold as patient's son who is making medical decisions does not want to proceed 3. Will await further decision making from patient's son, vascular surgery will be on standby Thank you for this consultation, we we will be on standby. The impression and plan of care has been dictated as directed. Dr. Graham I performed a history and examination of this patient, discussed the same with the dictator. I agree with the dictator's note ,documented as a scribe. Any additional findings or plans will be noted.
--- NOTE | 2023-10-02 10:52 | P.PN ---
Subjective Progress Note Date: 10/02/23 CHIEF COMPLAINT: rectal pain HISTORY OF PRESENT ILLNESS: 67-year-old male admitted to the hospital for DKA. patient is status post tracheostomy and PEG tube placement. Patient status post colonoscopy which was reported as normal but limited view to due to large amount of liquidy stool. Patient has had no further bloody stools. Patient is tolerating tube feeds at 40ml per hour. Afebrile. WBC 7.5 hgb 6.3 plt 225. Code status DNR. PHYSICAL EXAM: VITAL SIGNS: Reviewed GENERAL: no acute distress. Neck: trach site clean dry and intact ABDOMEN: Soft. Nondistended. PEG tube site clean dry and intact ASSESSMENT: 1. Acute hypoxic respiratory failure secondary to aspiration pneumonia. status post trach 2. Severe protein calorie malnutrition 3. GI bleed and Wall thickening of the rectum and sigmoid colon noted on CT. Status post colonoscopy PLAN: -Continue supportive care -Continue tube feeds -Patient is being evaluated for possible select specialty Physician [employer] note has been reviewed by physician. Signing provider agrees with the documented findings, assessment, and plan of care. Objective - Vital Signs Vital signs: Vital Signs Temp 98.7 F 10/02/23 04:00 Pulse 78 10/02/23 09:04 Resp 24 10/02/23 07:00 BP 151/77 10/02/23 07:00 Pulse Ox 91 L 10/02/23 07:00 FiO2 40 10/02/23 08:51 Intake & Output 10/01/23 10/02/23 10/02/23 18:59 06:59 18:59 Intake Total 1266 876 23 Output Total 6500 17 0 Balance -5234 859 23 Weight 105.3 kg Intake: IV 276 276 23 0.9 sodium chloride 240 240 20 Pressure Bag 36 36 3 Tube Feeding 400 480 Hemodialysis 500 Other 90 120 Output: Urine 0 17 0 Hemodialysis 3500 Hemodialysis Net Amount 3000 Other: Voiding Method Indwelling Catheter Indwelling Catheter ABP, PAP, CO, CI - Last Documented Arterial Blood Pressure 149/47 - Labs CBC & Chem 7: 10/02/23 04:45 10/02/23 04:45 Labs: Abnormal Lab Results - Last 24 Hours (Table) 10/01/23 10/01/23 10/01/23 Range/Units 11:45 17:56 23:32 RBC (4.30-5.90) m/uL Hgb (13.0-17.5) gm/dL Hct (39.0-53.0) % RDW (11.5-15.5) % Lymphocytes # (1.0-4.8) k/uL ABG pH (7.35-7.45) ABG HCO3 (21-25) mmol/L ABG Total CO2 (19-24) mmol/L ABG O2 Saturation (94-97) % Sodium (137-145) mmol/L Creatinine (0.66-1.25) mg/dL Glucose (74-99) mg/dL POC Glucose (mg/dL) 145 H 166 H 189 H (70-110) mg/dL Calcium (8.4-10.2) mg/dL 10/02/23 10/02/23 10/02/23 Range/Units 04:45 04:45 05:33 RBC 2.90 L (4.30-5.90) m/uL Hgb 8.3 L (13.0-17.5) gm/dL Hct 25.9 L (39.0-53.0) % RDW 16.0 H (11.5-15.5) % Lymphocytes # 0.4 L (1.0-4.8) k/uL ABG pH 7.46 H (7.35-7.45) ABG HCO3 30 H (21-25) mmol/L ABG Total CO2 31 H (19-24) mmol/L ABG O2 Saturation 98.6 H (94-97) % Sodium 132 L (137-145) mmol/L Creatinine 2.20 H (0.66-1.25) mg/dL Glucose 162 H (74-99) mg/dL POC Glucose (mg/dL) (70-110) mg/dL Calcium 7.3 L (8.4-10.2) mg/dL 10/02/23 Range/Units 05:40 RBC (4.30-5.90) m/uL Hgb (13.0-17.5) gm/dL Hct (39.0-53.0) % RDW (11.5-15.5) % Lymphocytes # (1.0-4.8) k/uL ABG pH (7.35-7.45) ABG HCO3 (21-25) mmol/L ABG Total CO2 (19-24) mmol/L ABG O2 Saturation (94-97) % Sodium (137-145) mmol/L Creatinine (0.66-1.25) mg/dL Glucose (74-99) mg/dL POC Glucose (mg/dL) 173 H (70-110) mg/dL Calcium (8.4-10.2) mg/dL
--- NOTE | 2023-10-02 11:30 | P.PN ---
Subjective Principal diagnosis: Progress note dated 09/22/23 67-year-old male with past medical history significant for diabetes mellitus, prior toe amputations, hyperlipidemia, coronary artery disease with previous stents, and seizure disorder who presented to the ED on 09/06 with DKA unresponsive intubated and mechanically ventilated. Patient was admitted to the ICU for DKA, respiratory failure, and MARIANO. He remained in the ICU until 09/12 when he was transferred to the floors. On 09/18 he was scheduled for colonoscopy as well as PEG placement on 09/21. On 09/18 his O2 requirement increased from 2-6L NC. A Team was called and he was reintubated and transferred to the ICU. Patient was evaluated today on 09/18/2023, patient is about the same, continues to have some discomfort in his back and in his rectal area, supposed to have colonoscopy tomorrow. Eliquis remains on hold. Patient has no active pulmonary issues. WBC count is 8.6 hemoglobin 10.2 electrolytes are normal renal profile is normal The patient was seen today September 19, 2023 in follow-up on the selective care unit. Today he is found to be weak and obtunded. He is requiring more oxygen currently at 6 L high flow nasal cannula. A rapid response team was called on him. Chest x-ray and ABGs reviewed. He will be transferred to the intensive care unit. Serial blood gases on 100% FiO2 revealed a P O2 of 66, pCO2 of 49 and a pH of 7.32. White count 9.9. Hemoglobin 11.3. Platelets 233. Sodium 143. Potassium 4.5. Bicarb 26. BUN 17. Creatinine 0.87. Glucose 151. The patient has been having concerns of rectal pain and possible rectal mass and the plan was for colonoscopy. However the patient was having ongoing issues with difficulty in swallowing and was being considered for PEG tube placement. This was prior to his change in clinical status. X-ray did reveal a right lower lobe infiltrate with minimal right pleural effusion. Patient was evaluated today on 09/20/2023, patient developed a worsening pulmonary status yesterday, required transfer to the ICU intubation mechanical ventilation. I saw the patient yesterday, he underwent bronchoscopy, lines were placed and the patient, and he was kept on mechanical ventilation overnight. Patient is now on assist-control rate of 24 tidal volume 450 FiO2 was 80% earlier but is now 50%, and PEEP of 10 ABG showed a pO2 of 92 pCO2 47 pH of 7.30 his urine output is 5 to 20 cc/h, however his CVP is low and the patient will require more fluid boluses if no improvement after fluid boluses, then we will give the patient Lasix. In the meantime the patient is requiring propofol at 35 mg/kg/min norepinephrine at 0.06 mg/kg/min IV fluid running at 100 cc/h and the patient is also receiving vital HP at 10 cc/h antibiotics rosario he is receiving Flagyl and Zosyn. Chest x-ray continues to show bilateral infiltrates consistent with most likely aspiration pneumonia. Patient was seen by infectious disease and he is now on Flagyl and ZosynWBC count today is 13 hemoglobin 9.3 basic metabolic profile is normal renal profile showed a BUN of 29 creatinine 1.45 Patient was evaluated today on 09/21/2023, remains in the ICU, intubated and mechanically ventilated. Patient is on assist-control rate of 24 tidal volume 450 FiO2 50% and PEEP of 10 ABG showed a pO2 of 79 pCO2 43 pH of 7.26, apparently the patient developed some metabolic acidosis associated with acute kidney injury, and I have recommended 1 amp of bicarb to be given and sodium bicarb to be given orally and I also recommended nephrology evaluation on this patient as his renal status seems to be getting worse and the patient is having less and less urine output. CVP is around 7 patient will receive more fluids today, may consider Lasix depending on the response to fluid boluses. Urine output is extremely low. And again his renal functioning is getting worse. Patient remains on propofol at 50 mcg/kg/min he is also on norepinephrine at 0.03 mcg/kg/min, patient is receiving Glucerna 1.5/enteral feeding, patient remains on Lovenox 80 mg SQ twice daily, he is also on Zosyn and Flagyl. Chest x-ray continues to show bilateral infiltrates. Improved compared to his initial chest x-ray but nonetheless considered to be significant airspace disease bilaterally. Microbiology from the bronchial washing/lavage, showed mostly C andida, Gram stains and cultures from previous sputum from 09/08/2023 showed E. coli Staph aureus and Streptococcus agalactiae Patient was evaluated today on 09/22/2023, remains in the ICU, intubated and mechanically ventilated. He is on propofol 25 mcg/kg/min, Levophed 0.09 mcg/kg/min, and .9 NS IVF at 10cc/h patient is on assist-control rate of 24 tidal volume 450 FiO2 50% and PEEP of 10. ABG shows pH 7.24 pCO2 42 and pO2 of 97. Patient exhibits normal anion gap metabolic acidosis. Sodium 145, potassium 4.4, chloride 119, CO2 16, BUN 46, creatinine 2.98, glucose 178, and albumin 1.7. He received Sodium bicarb orally, 1amp IVP bicarb, and 80 mg Lasix as per nephrology's recommendation due to patient's poor urine output despite fluids and Lasix. Renal ultrasound showed no hydronephrosis and a left renal cyst. X-ray shows worsening bibasilar infiltrates. Bronchial washings showed Lisa albicans. He is on Zosyn 25ml/hr. Patient was evaluated today on 09/23/2023, remains in ICU, intubated and mechanically ventilated. He is on propofol 50 mcg/kg/min, Levophed 0.06 mcg/kg/min, and 0.9 normal saline IV fluids at 10 cc/h. Patient is on assist- control rate of 24 tidal volume 450 FiO2 50% and PEEP of 10. ABG shows pH of 7.32 pCO2 of 44 and pO2 of 70. Sodium is 143, potassium 4.2, chloride 113, CO2 21, BUN 42, creatinine 3.07, glucose 164, cortisol 11.7 and TSH was 0.618. U rine output remains poor despite fluid restriction and Lasix. Nephrology has discontinued the Lasix drip of 10 mcg/h and placed the patient on 80 mg IVP twice daily. Patient was dialyzed 1L yesterday and is currently undergoing dialysis with a goal of 2.5 L and tolerating well. Patient has FMS in place. He is receiving Glucerna tube feeds at a rate of 35/h. Chest x-ray today remains unchanged shows bibasilar infiltrates with a small right pleural effusion. Patient was evaluated today on 09/24/2023, remains in ICU, intubated and mechanically ventilated. Overnight he was on propofol at a rate of 40 mcg/kg/min, Levophed 0.03 mcg/kg/min, and 0.9 normal saline at 10/h. Patient is on assist-control rate of 24, tidal volume 450, FiO2 50%, PEEP of 10. ABG shows pO2 of 78, CO2 43, pH 7.35. Sodium is 139, potassium 4.4, chloride 108, CO2 21, BUN 40, creatinine 3.11, glucose 194. Blood glucose levels have been ranging in the 200s over the last 24 hours. Urine output remains poor despite fluid restriction and Lasix 80 mg twice daily. Patient was dialyzed 2.9 L yesterday and is undergoing dialysis today with a goal of 3 L. Daily interruption of sedation was unsuccessful yesterday: Patient became asynchronous with the vent, was not arousable, and did not follow commands so SBT was not attempted. Patient has FMS in place. He is receiving Glucerna feeds at a rate of 35/hour. Chest x-ray shows bibasilar infiltrates with slight improvement. Patient has had mild low-grade fevers with a Tmax of 101.3. White count has increased to 13.4 from 9.1 yesterday. Blood culture from 09/19 shows no growth after 72 hours. Procalcitonin yesterday was 5.47. He remains on Zosyn. This morning propofol and Levophed were held for daily interruption of sedation and possible SBT today. Patient was evaluated today on 09/25/2023, remains in ICU, intubated and mechanically ventilated. He is on propofol at a rate of 40 mcg/kg/min, Levophed 0.03 mcg/kg/min, and 0.9 normal saline at 10/h. Patient is on assist control rate of 24, tidal volume 450, FiO2 50%, PEEP of 10. ABG shows PaO2 91, CO2 44, pH 7.4. Sodium is 136, potassium 3.8 which has been repleted, chloride 105, CO2 25, BUN 37, creatinine 2.94, glucose 161. Urine output remains poor despite fluid restriction and Lasix 80 mg twice daily. Patient was dialyzed 3 L yesterday and is undergoing dialysis today. Daily interruption of sedation was unsuccessful yesterday. Patient was not opening his eyes or moving his extremi ties, unable to follow commands, and asynchronous with the vent, so SBT was not attempted. Patient has FMS in place. He is receiving Glucerna feeds at a rate of 35 an hour. Chest x-ray shows worsening bibasilar consolidations. Patient had low-grade fever of 99.7. White count has decreased from 13.4 yesterday to 10.8 today. Blood culture, urine culture, and sputum culture have all been sent to the lab. Daily interruption of sedation & SBT as tolerated today. Attempts to contact family regarding possible trach and PEG are still ongoing due to patient's multiple unsuccessful attempts to wean off the ventilator. Patient was evaluated today on 09/26/2023, remains in ICU, intubated and mec hanically ventilated. Propofol & Levophed have been held since yesterday at 1pm. He is on 0.9NS at KVO. Patient is on assist control rate of 24, tidal volume 450, FiO2 50%, PEEP of 10. ABG shows PaO2 71, CO2 41, pH 7.48. Sodium is 133, potassium 4.1, chloride 99, CO2 28, BUN 35, creatinine 2.76, glucose 187. Urine output remains poor despite fluid restriction and Lasix 80 mg twice daily. Patient was dialyzed 3 L yesterday. Despite being off sedation, patient remains obtunded. He only responds mildly to sternal rubs Patient has FMS in place. Overnight at about 2:40am, the patient developed bright red liquid stool, BP was 118/49 with a map of 67 and a heart rate of 86. Hemoglobin was 8.3. As per primary team. OG was changed to LIS and hemoglobin was repeated. Lovenox & Glucerna tube feeds was held due to scheduled trach & PEG today. Hemoglobin this morning was 7.7. He received 1 unit and 20mg Ddavp given to optimize him for surgery today. White count is 11.4 today. Urine culture showed growth of yeasts and Eraxis was started as per ID's recommendations. Patient was evaluated today on 09/27/2023, remains in ICU, status post trach and PEG yesterday. Tracheostomy tube is leaking but NG tube looks clean dry and intact. Levophed is running at 9.7 mcg/min and 0.9 normal saline at 10/h. Patient is on assist-control rate of 24 tidal volume 450 FiO2 60% PEEP of 10. ABG shows pO2 from 28 pCO2 45 and pH 7.34. Sodium 134, potassium 4.5, chloride 101, CO2 21, BUN 29, creatinine 2.47, and glucose 165. Urine output remains poor despite fluid restriction and Lasix 80 mg twice daily. Patient will be dialyzed today with a goal of 1 L. Patient has a FMS in place. Overnight the patient has had consistently bloody stools and put out about 900 overnight. Tube feeds are being held due to GI bleeding. Surgery recommends RBC tagged study. Hemoglobin was 7.5 this morning and he received his fifth unit of blood. White count is 20 today. Urine culture shows growth of yeasts. Patient remains on Eraxis and Zosyn. Progress note dated September 28, 2023. 67-year-old male who is still in the intensive care unit, on the mechanical ventilator. Vent settings include volume assist-control, rate 24, tidal volume 450, FiO2 60%, to be reduced down to 50%, PEEP of 10. Blood gases show pO2 147, pCO2 42, and a pH of 7.42. The patient is getting saline at 10 cc an hour, no repinephrine has been weaned off. He is scheduled for colonoscopy tomorrow, September 28. Since being here in the unit, and in the hospital, he is received a total of 7 units of packed red blood cells. His red blood cell study, was negative. Head CT was negative. He had hemodialysis yesterday, and 1 L was removed. Current labs include a white count 14.1, hemoglobin 7.4, hematocrit 22.3, and a platelet count of 270,000. Sodium 133, potassium 3.8, chlorides 102, CO2 23, BUN 29, creatinine 2.45. Glucose is 135. Albumin is 1.8. Chest x-ray shows bibasilar infiltrates or opacities. Patient was evaluated today on 09/29/2023, remains in ICU, on mechanical ventilator. Vent settings are assist-control, rate 24, tidal volume 450, FiO2 50%, PEEP of 10. Blood gases show pO2 106, CO2 pCO2 48, pH 7.34. Patient remains on 0.9% saline at 10 cc an hour, norepinephrine remains off. He is scheduled for colonoscopy & hemodialysis today. Since being on the unit he has received a total of 7 units of packed red blood cells. Tagged RBC study was negative. Head CT done on 09/27/2023 was unremarkable. Current labs include a white count of 12.1, hemoglobin 9.2, and platelets 184,000. Sodium 135, potassium 3.1 repleted, chloride 101, CO2 23, BUN 34, Creatinine 2.8, and glucose 108. Chest x-ray shows stable bibasilar infiltrates. Patient was evaluated today on 09/30/2023, remains in ICU, on mechanical ventilator. Vent settings are currently assist-control rate 24, tidal volume 450, FiO2 40%, and PEEP of 10. Blood gases this morning showed pO2 of 134, pCO2 42, pH 7.32 at FiO2 50%. Patient remains saline 10 cc an hour and is not on any sedation. Colonoscopy yesterday did not show any evidence of GI bleed. Hemodialysis yesterday yielded 2 L. Tube feeds remain held. Current labs i nclude white count of 12, hemoglobin 9.4, platelets 208,000. Sodium 132, potassium 4.2, chloride 100, CO2 19, BUN 22, creatinine 2.22, and glucose 112. Chest x-ray shows stable bibasilar infiltrates. Progress note dated October 01, 2023. 67-year-old male evaluated today, remains in the ICU on mechanical ventilator. Vent settings are currently assist-control rate 24, 40% FiO2 and PEEP of 5. Gases this morning showed pO2 104, pCO2 41, pH 7.56. Patient remains on 0.9 normal saline at 20 mill per hour and glucerna at 30 with a goal of 40 as a colonoscopy did not show any evidence of GI bleed. Unable to place PICC line yesterday because the patient was on dialysis, they removed 2 L of fluid. The PICC line will be put in today. The patient is also getting hemodialysis today. Permacath will be put in today as per nephro. His labs show WBC 8.5, hemoglobin 9, platelets 219, sodium 131, potassium 3.7, chloride 100, BUN 19, creatinine 2.45. There was also some blood noted in the stool. Today the patient has been put on physician controlled patient initiated pressure limited flow cycle trial. Patient is on a short course of Eraxis. Chest x-ray shows stable bibasilar infiltrates. Prognosis is guarded. Will continue to follow and make recommendations. Patient was evaluated on 10/02/2023, remains in ICU on mechanical ventilator. Vent settings are currently assist-control rate of 24, tidal volume 450, FiO2 40%, and PEEP of 5. Gases this morning showed pO2 92, CO2 43, pH 7.46 at FiO2 40%. Patient is on 0.9 normal saline at 10/h and Glucerna at a rate of 40/h which is goal. Patient had hemodialysis yesterday and 3 L were removed. Labs today show white count 7.5 hemoglobin 8.3, platelets 225,000, sodium 132, potassium 3.9, chloride 100, BUN 19, creatinine 2.2, glucose 162. Patient remains on short course of Eraxis. Chest x-ray shows stable bibasilar infiltrates. PICC line and permacath were not placed yesterday due to family's request. Son does not want any invasive interventions and is leaning towards hospice. Primary team will discuss with family to determine whether they would like select specialty or hospice. Objective - Vital Signs Vital signs: Vital Signs Temp 98.7 F 10/02/23 04:00 Pulse 78 10/02/23 09:04 Resp 24 10/02/23 07:00 BP 151/77 10/02/23 07:00 Pulse Ox 91 L 10/02/23 07:00 FiO2 40 10/02/23 08:51 Intake & Output 10/01/23 10/02/23 10/02/23 18:59 06:59 18:59 Intake Total 1266 876 23 Output Total 6500 17 0 Balance -5234 859 23 Weight 105.3 kg Intake: IV 276 276 23 0.9 sodium chloride 240 240 20 Pressure Bag 36 36 3 Tube Feeding 400 480 Hemodialysis 500 Other 90 120 Output: Urine 0 17 0 Hemodialysis 3500 Hemodialysis Net Amount 3000 Other: Voiding Method Indwelling Catheter Indwelling Catheter ABP, PAP, CO, CI - Last Documented Arterial Blood Pressure 149/47 - Exam GENERAL EXAM: 67-year-old white male with tracheostomy & PEG tube, not in distress, generally edematous in all 4 extremities HEAD: Normocephalic and atraumatic EYES: Within normal NOSE: Clear with pink turbinates. THROAT: No erythema or exudates. Dry mucous membranes. NECK: No masses, no JVD. CHEST: No chest wall deformity. LUNGS: Good breath sound bilaterally mostly diminished at the bases no crackles rhonchi or wheezes CVS: S1 and S2 normal with no soft systolic murmur, regular rhythm. No extra heart sounds ABDOMEN: Abdomen flat, diminished bowel sounds, no hepatosplenomegaly, no guarding or rigidity. SKIN: No rashes CENTRAL NERVOUS SYSTEM: opens eyes, but does not track or follow commands Theatric: Could not assess EXTREMITIES: no clubbing, no cyanosis, trace bipedal edema. - Labs CBC & Chem 7: 10/02/23 04:45 10/02/23 04:45 Labs: Abnormal Lab Results - Last 24 Hours (Table) 10/01/23 10/01/23 10/01/23 Range/Units 11:45 17:56 23:32 RBC (4.30-5.90) m/uL Hgb (13.0-17.5) gm/dL Hct (39.0-53.0) % RDW (11.5-15.5) % Lymphocytes # (1.0-4.8) k/uL ABG pH (7.35-7.45) ABG HCO3 (21-25) mmol/L ABG Total CO2 (19-24) mmol/L ABG O2 Saturation (94-97) % Sodium (137-145) mmol/L Creatinine (0.66-1.25) mg/dL Glucose (74-99) mg/dL POC Glucose (mg/dL) 145 H 166 H 189 H (70-110) mg/dL Calcium (8.4-10.2) mg/dL 10/02/23 10/02/23 10/02/23 Range/Units 04:45 04:45 05:33 RBC 2.90 L (4.30-5.90) m/uL Hgb 8.3 L (13.0-17.5) gm/dL Hct 25.9 L (39.0-53.0) % RDW 16.0 H (11.5-15.5) % Lymphocytes # 0.4 L (1.0-4.8) k/uL ABG pH 7.46 H (7.35-7.45) ABG HCO3 30 H (21-25) mmol/L ABG Total CO2 31 H (19-24) mmol/L ABG O2 Saturation 98.6 H (94-97) % Sodium 132 L (137-145) mmol/L Creatinine 2.20 H (0.66-1.25) mg/dL Glucose 162 H (74-99) mg/dL POC Glucose (mg/dL) (70-110) mg/dL Calcium 7.3 L (8.4-10.2) mg/dL 07/25/24 Range/Units 05:40 RBC (4.30-5.90) m/uL Hgb (13.0-17.5) gm/dL Hct (39.0-53.0) % RDW (11.5-15.5) % Lymphocytes # (1.0-4.8) k/uL ABG pH (7.35-7.45) ABG HCO3 (21-25) mmol/L ABG Total CO2 (19-24) mmol/L ABG O2 Saturation (94-97) % Sodium (137-145) mmol/L Creatinine (0.66-1.25) mg/dL Glucose (74-99) mg/dL POC Glucose (mg/dL) 173 H (70-110) mg/dL Calcium (8.4-10.2) mg/dL Assessment and Plan Assessment: Acute hypoxic respiratory failure secondary to aspiration pneumonia s/p trach on 09/25 Acute kidney injury Malnutrition with severe hypoalbuminemia s/p PEG tube 09/26 Anasarca secondary to hypoalbuminemia Candiduria Unspecified bleeding source Hg 7.5 s/p 7 units RBCs Normal anion gap metabolic acidosis resolved Acute DKA resolved Hx of Type 2 DM Hx of B/L great toe amputations HX of Hyperlipidemia Hx of CAD with previous stent Hx of seizure disorder Plan Continue ventilator support Continue IVF at 10/hr HD today as tolerated Glucerna at goal of 50/hr Continue GI and DVT prophylaxis Continue Levemir insulin to 20 units for glucose control Continue sliding scale NovoLog insulin as per protocol Continue Eraxis 100mg q24hrs Patient is critically ill, prognosis is guarded Patient is critically ill and critical care time is over 30 Will continue to follow Patient is a NO CODE STATUS Time with Patient: Greater than 30
--- NOTE | 2023-10-02 11:33 | P.PN ---
Subjective patient is seen for follow-up for acute kidney injury. Started hemodialysis on 09/22/2023. Patient remains oliguric. There may be plans for comfort care measures. hemodialysis is on hold for today. Objective - Vital Signs Vital signs: Vital Signs Temp 98.7 F 10/02/23 04:00 Pulse 78 10/02/23 09:04 Resp 24 10/02/23 07:00 BP 151/77 10/02/23 07:00 Pulse Ox 91 L 10/02/23 07:00 FiO2 40 10/02/23 08:51 Intake & Output 10/01/23 10/02/23 10/02/23 18:59 06:59 18:59 Intake Total 1266 876 23 Output Total 6500 17 0 Balance -5234 859 23 Weight 105.3 kg Intake: IV 276 276 23 0.9 sodium chloride 240 240 20 Pressure Bag 36 36 3 Tube Feeding 400 480 Hemodialysis 500 Other 90 120 Output: Urine 0 17 0 Hemodialysis 3500 Hemodialysis Net Amount 3000 Other: Voiding Method Indwelling Catheter Indwelling Catheter ABP, PAP, CO, CI - Last Documented Arterial Blood Pressure 149/47 - Exam Patient is awake. Status post trach. Patient remains on the vent. Examination of the heart S1 and S2 Examination of the lungs bilateral breath sounds are heard Abdomen is soft Examination lower extremity shows edema 2+ bilaterally - Labs CBC & Chem 7: 10/02/23 04:45 10/02/23 04:45 Labs: Abnormal Lab Results - Last 24 Hours (Table) 10/01/23 10/01/23 10/01/23 Range/Units 11:45 17:56 23:32 RBC (4.30-5.90) m/uL Hgb (13.0-17.5) gm/dL Hct (39.0-53.0) % RDW (11.5-15.5) % Lymphocytes # (1.0-4.8) k/uL ABG pH (7.35-7.45) ABG HCO3 (21-25) mmol/L ABG Total CO2 (19-24) mmol/L ABG O2 Saturation (94-97) % Sodium (137-145) mmol/L Creatinine (0.66-1.25) mg/dL Glucose (74-99) mg/dL POC Glucose (mg/dL) 145 H 166 H 189 H (70-110) mg/dL Calcium (8.4-10.2) mg/dL 10/02/23 10/02/23 10/02/23 Range/Units 04:45 04:45 05:33 RBC 2.90 L (4.30-5.90) m/uL Hgb 8.3 L (13.0-17.5) gm/dL Hct 25.9 L (39.0-53.0) % RDW 16.0 H (11.5-15.5) % Lymphocytes # 0.4 L (1.0-4.8) k/uL ABG pH 7.46 H (7.35-7.45) ABG HCO3 30 H (21-25) mmol/L ABG Total CO2 31 H (19-24) mmol/L ABG O2 Saturation 98.6 H (94-97) % Sodium 132 L (137-145) mmol/L Creatinine 2.20 H (0.66-1.25) mg/dL Glucose 162 H (74-99) mg/dL POC Glucose (mg/dL) (70-110) mg/dL Calcium 7.3 L (8.4-10.2) mg/dL 10/02/23 Range/Units 05:40 RBC (4.30-5.90) m/uL Hgb (13.0-17.5) gm/dL Hct (39.0-53.0) % RDW (11.5-15.5) % Lymphocytes # (1.0-4.8) k/uL ABG pH (7.35-7.45) ABG HCO3 (21-25) mmol/L ABG Total CO2 (19-24) mmol/L ABG O2 Saturation (94-97) % Sodium (137-145) mmol/L Creatinine (0.66-1.25) mg/dL Glucose (74-99) mg/dL POC Glucose (mg/dL) 173 H (70-110) mg/dL Calcium (8.4-10.2) mg/dL Assessment and Plan Assessment: 1. Acute kidney injury secondary to ATN secondary to hypotension requiring vasopressor support. Baseline creatinine near 1. Oliguric. No hydronephrosis noted on kidney ultrasound. Started on hemodialysis September 21 to 2023 via temporary catheter dialysis catheter. Patient remains oliguric and maintained on daily dialysis mostly for UF. Family is considering comfort care measures. Hemodialysis currently on hold until final decision is made. 2. Septic shock secondary to pneumonia on antibiotics. ID following. 3. Metabolic acidosis secondary to acute kidney injury and IV fluids. Improved. 4. Acute hypoxic respiratory failure secondary to pneumonia. Intubated. 5. DKA on presentation status post insulin drip. 6. Hyperphosphatemia secondary to acute kidney injury. Phosphorus level 5.5 dated September 22, 2023. 7. Volume overload. Plan: hold hemodialysis today. Await final decision from family regarding CODE STATUS.
[2023-10-02 11:36] LABS: Glucose,Whole Blood 191 mg/dL (70-110)
--- NOTE | 2023-10-02 12:05 | P.PN ---
Subjective Progress Note Date: 10/02/23 Romel Malin is a 67-year-old male with past medical history significant for diabetes mellitus, prior toe amputations, hyperlipidemia, coronary artery disease with previous stents, and seizure disorder. He is currently intubated to the mechanical ventilator, unresponsive without any sedation, unable to provide any information. Patient was transferred from [facility] late last night. Apparently, found unresponsive by his girlfriend, and last known well was 24 hours prior. Patient was intubated by EMS on arrival and triaged to [facility]. Initial presentation was consistent with DKA. Subsequently, the patient was transferred to [facility]. Patient is currently in trauma bay 1, he is intubated mechanical ventilator. Chest x-ray on arrival to our facility shows the endotracheal tube in satisfactory position approximately 4 cm above the mahesh. There is an orogastric tube that should be advanced. Right IJ central line catheter appears to terminate at the Cavo atrial junction. No focal infiltrates or evidence of pneumonia. Current ventilator settings are assist-control, respiratory rate 14, tidal volume 500, FiO2 35%, PEEP of 5. He is breathing slightly above set rate. Not on any sedation. Remains unresponsive even to deep painful stimuli. CT of the brain did not show any acute intracranial hemorrhage or mass effect. ABG is consistent with profound metabolic acidosis, with a PaO2 of 204, pCO2 of 25, pH of 7.04. Patient has been given a total of 2 A of bicarb. He is hypotensive and in a shock state, he has been fluid resuscitated with at least 2.5 L crystalloid fluid. No insulin infusion is currently ordered. He remains profoundly hypotensive, and has been started on norepinephrine which is currently infusing at 0.06 mcg/kg/min. CBC: WBC count 8.8, hemoglobin 14.5, hematocrit 50.3, platelets 136. CMP: Sodium 143, potassium 5.2, chloride 115, serum bicarb less than 5, anion gap unmeasurable, BUN 134, creatinine 4.29, gluc ose 910. Lactic 1.1. LFTs not elevated. Total bilirubin 0.7. Ammonia less than 9. CPK was 882. Troponin 0.084. NT BNP 2720. EKG shows normal sinus rhythm and is nondiagnostic for acute ischemia. Urinalysis positive for glucose and ketones. Urine toxicology screen at outside facility was essentially negative. Serum alcohol less than 10. Patient will be admitted to the intensive care unit once bed available. 09/09/2023 Patient grimaces to pain but does not follow commands. He remains off sedatives. Suspect to be hypoxic encephalopathy. Neurolgy was consulted and advises mentation is likely due to metabolic injury. CT scan of the brain yesterday that showed no midline shift or swelling. Patient anion gap has closed with an anion gap of 6, bicarb 17. Potassium at 3.3. Replacement ongoing per protocol. Blood sugars 879. Insulin IV will be discontinued and will transiotion to Insulin detemir SQ. Patient began to show increased breathing on the mechanical ventilator and was switched to pressure control rate of 20, tidal volume of 500, FiO2 of 35%, and a PEEP of 5. ABG showed pH of 7.4 with a pCO2 of 29 and pO2 of 103. WBC is at 5 with a hemoglobin of 12 and a platelet count of 62. Heparin SQ discontinued. Chest x-ray show atelectatic changes in lung base bilaterally. Sputum is showing 09/09 Patient still encephaolpathic but now opens eyes to command, moves arms independently, only grimaces to pain. Patient still intubated and comfortable on current vent settings. Still not on any sedation. Potassium replacement on going as per protocol but on the uptrend latest at 3.5 . Glucose at the 211 and sustaining at levels of 200s. On Glucerna 1.5 rate at 30cc/hr via enteral feeding. Insulin increased to 25 units and on sliding scale coverage. Sputum culture grew gram-negative bacillus and presumptive Staph aureus. started on IV Cefepime. WBC 4.7, hemoglobin 11.4, hematocrit 35 and platelet count 49. Blood pressures increase at 140-160/60-80. Started on IV hydralazine 10mg PRN. Afebrile on assessment. Sodium elevated trend at 152. 0.45% normal saline discontinued and start on free water through OG tube. 09/10. Patient seen and examined. Continues to be intubated at the bedside, all questions answered 09/11. Patient seen and examined. Patient extubated this morning, following commands, currently on oxygen via nasal cannula 09/12. Patient seen and examined. Labs done this morning showed WBC 7.6, hemoglobin 10.8, platelet count 90, sodium 149, potassium 3.6, BUN 36, creatinine 1.06. Patient getting chest PT 09/13. Patient seen and examined. Currently on thickened liquid diet. Speech evaluation pending. Decrease fluids. 09/15/2023 telemetry sinus rhythm. Continues on amiodarone, Farxiga. Anticoagulated on Eliquis. Confused this morning, alert and oriented to person, knows he is in the hospital but thinks he is in [place], [place]. Maintaining O2 sat of 94% on 2 L nasal cannula on cefepime and nebulized bronchodilators. Choking on applesauce during speech therapy's evaluation, modified barium swallow ordered. Blood sugars in the low 200s during the night, better controlled this morning, 132. Hemoglobin A1c 11.9. 09/16/2023 MBS results noted-speech therapy recommending ground meats, nectar liquids, no straw, liquids from cup, small bites and sips with direct supervision , sitting upright 90 degrees and ongoing speech therapy. O2 sats improved, 97% on 2 L nasal cannula. Maintained on cefepime as per ID, afebrile, normal WBC. Hemoglobin 10, platelets 146. Potassium 2.9-supplementation and magnesium level ordered. Blood sugars better controlled. Renal function stable. Telemetry sinus rhythm. PT pending. 09/17/2023 Maintained on cefepime.yesterday Ochoa catheter discontinued but patient developed urinary retention and Ochoa catheter reinserted .ongoing lower back and rectal pain. lumbar CT reported no evidence for spinal fracture, moderate degeneration changes without evidence for significant spinal canal stenosis, moderate bilateral L5-S1 and L4-L5 neuroforaminal stenosis, bilateral lung consolidation possibly representing atelectasis with superimposed infection not excluded, trace right pleural effusion. Pelvis CT reporting circumferential wall thickening of the rectum/sigmoid colon , prominent mesenteric lymph nodes around the rectum also present direct visualization recommended to rule out mass, colonic diverticulosis, fat-containing right inguinal hernia, no evidence of fracture, mild to moderate bilateral hip osteoarthrosis and moderate degenerative changes of the spine. Vague historian, unsure of last colonoscopy. Denies nausea vomiting. Potassium 3.5-supplemented, renal function stable. 09/18/2023 continues to complain of back and rectal pain. Eliquis remains on hold, general surgery discussing colonoscopy for tomorrow. Renal function stable, Hemoglobin 10.2, platelets 193. Blood sugars controlled. 09/19/2023 Eliquis remains on hold. Patient initially was scheduled for colon oscopy today. patient developed increased difficulty swallowing, bowel prep and colonoscopy canceled by general surgery. General surgery scheduled patient for PEG tube placement for Friday. oxygen requirement increased from 2 to 6 L nasal cannula. Wendick reported O2 sat of 93% on 6 L nasal cannula. Chest x-ray from last night reported right lower lobe infiltrate, minimal right pleural effusion. As the morning progressed, respiratory status declined, BiPAP and ABGs ordered. Upon entering the room to apply BiPAP, patient unresponsive and A team called, intubated and transferred to ICU. 09/19. Patient seen and examined. Dr. Rodriguez took over care from Dr. Kwok. Patient currently intubated and sedated. 09/20. Patient seen and examined. Blood work done this morning showed WBC 9.7, hemoglobin 8.7, platelet count 197, sodium 144, potassium 4.6, BUN 39, creatinine 2.37 09/29/2023 maintained on Zosyn and Eraxis.status post tracheostomy and PEG tube placement .Vent dependent, FiO2 50%/+10 of PEEP. Chest x-ray reporting stable with no change in bibasilar opacities. Currently off of pressors and diprovan. rectal tube with scant red drainage, scheduled for colonoscopy today. Tube f eeds on hold. hemoglobin 9.2, platelets 184. Afebrile, WBC 12.1. BUN 34, creatinine 2.8, bicarb 23, scheduled for hemodialysis today. Opens eyes to name. 09/29. Dr. Rodriguez took over care from Dr. Kwok. Patient has been trached and pegged 09/30. Patient seen and examined. Patient currently undergoing dialysis. Family leaning towards hospice 10/01. Patient seen and examined. Continues to be on vent, minimally responsive. REVIEW OF SYSTEMS: Cannot be obtained as patient only opens eyes PHYSICAL EXAMINATION: GENERAL: The patient is on vent HEENT: Pupils are round and equally reacting to light. EOMI. No scleral icterus. Trach collar seen CARDIOVASCULAR: S1 and S2 present. No murmurs, rubs, or gallops. PULMONARY: Chest is clear to auscultation, no wheezing or crackles. ABDOMEN: Soft, nontender, nondistended, normoactive bowel sounds. No palpable organomegaly. PEG tube seen MUSCULOSKELETAL: No joint swelling or deformity. EXTREMITIES: No cyanosis, clubbing, or pedal edema. NEUROLOGICAL: Currently on vent SKIN: No rashes. Assessment and plan Acute hypoxic and hypercapnic respiratory failure, status post reintubation on 09/19/2023. Suspect aspiration Acute DKA, anion gap closed , resolved Severe anion gap metabolic acidosis secondary to the above, status post bicarb drip. Hypotensive ,hypovolemic shock, status post pressor dependent, resolved Acute hypoxic respiratory failure, status post mechanical ventilator dependent. Acute left lower lobe pneumonia as per pulmonary, sputum culture, polymicrobial, reporting E. coli, Staphylococcus aureus-MSSA, strep agalactiae group B. Dysphagia, delayed swallowing, MBS completed-speech recommending dysphagia level 2 diet, one-to-one supervision, aspiration precautions Rectal pain, wall thickening of the rectum/sigmoid colon reported per CT Fat-containing right inguinal hernia reported per CT Hyperchloremic hypernatremia, resolved. Thrombocytopenia Paroxysmal atrial fibrillation Sepsis, secondary to all the above, resolved. Acute metabolic encephalopathy secondary to all the above, suspect anoxic. Brain CT did not report any acute abnormalities, EEG reported slowing suggestive of severe encephalopathy likely due to toxic metabolic derangement. Acute rhabdomyolysis Acute renal failure, improving Elevated troponin, multifactorial secondary to all the above, ACS ruled out,Type II NH as per cardiology. Severe dehydration Diabetes mellitus type 2, hemoglobin A1c 11.9 CAD, history of NH, stent History of seizure disorder, on Keppra Stage I pressure ulcer, 1 cm near rectum Fungal rash, anterior scrotum Hypokalemia Plan: Monitor vital sign Monitor CBC Monitor CMP Continue vent management per ICU aggressive bronchopulmonary hygiene Continue Eraxis Continue dialysis per nephrology Continue Kera monitor blood sugar levels, continue current insulin regimen ID following Critical care following Family leaning towards hospice Labs and medication were reviewed.. Continue same treatment. Continue with symptomatic treatment. Resume home medication. Monitor labs and vitals. DVT and GI prophylaxis. Further recommendations as per clinical course of the patient Dictation was produced using [employer] dictation software. please excuse any grammatical, word or spelling errors. Objective - Vital Signs Vital signs: Vital Signs Temp 98.7 F 10/02/23 04:00 Pulse 78 10/02/23 09:04 Resp 24 10/02/23 07:00 BP 151/77 10/02/23 07:00 Pulse Ox 91 L 10/02/23 07:00 FiO2 40 10/02/23 08:51 Intake & Output 10/01/23 10/02/23 10/02/23 18:59 06:59 18:59 Intake Total 1266 876 23 Output Total 6500 17 0 Balance -5234 859 23 Weight 105.3 kg Intake: IV 276 276 23 0.9 sodium chloride 240 240 20 Pressure Bag 36 36 3 Tube Feeding 400 480 Hemodialysis 500 Other 90 120 Output: Urine 0 17 0 Hemodialysis 3500 Hemodialysis Net Amount 3000 Other: Voiding Method Indwelling Catheter Indwelling Catheter ABP, PAP, CO, CI - Last Documented Arterial Blood Pressure 149/47 - Labs CBC & Chem 7: 10/02/23 04:45 10/02/23 04:45 Labs: Abnormal Lab Results - Last 24 Hours (Table) 10/01/23 10/01/23 10/01/23 Range/Units 11:45 17:56 23:32 RBC (4.30-5.90) m/uL Hgb (13.0-17.5) gm/dL Hct (39.0-53.0) % RDW (11.5-15.5) % Lymphocytes # (1.0-4.8) k/uL ABG pH (7.35-7.45) ABG HCO3 (21-25) mmol/L ABG Total CO2 (19-24) mmol/L ABG O2 Saturation (94-97) % Sodium (137-145) mmol/L Creatinine (0.66-1.25) mg/dL Glucose (74-99) mg/dL POC Glucose (mg/dL) 145 H 166 H 189 H (70-110) mg/dL Calcium (8.4-10.2) mg/dL 10/02/23 10/02/23 10/02/23 Range/Units 04:45 04:45 05:33 RBC 2.90 L (4.30-5.90) m/uL Hgb 8.3 L (13.0-17.5) gm/dL Hct 25.9 L (39.0-53.0) % RDW 16.0 H (11.5-15.5) % Lymphocytes # 0.4 L (1.0-4.8) k/uL ABG pH 7.46 H (7.35-7.45) ABG HCO3 30 H (21-25) mmol/L ABG Total CO2 31 H (19-24) mmol/L ABG O2 Saturation 98.6 H (94-97) % Sodium 132 L (137-145) mmol/L Creatinine 2.20 H (0.66-1.25) mg/dL Glucose 162 H (74-99) mg/dL POC Glucose (mg/dL) (70-110) mg/dL Calcium 7.3 L (8.4-10.2) mg/dL 10/02/23 Range/Units 05:40 RBC (4.30-5.90) m/uL Hgb (13.0-17.5) gm/dL Hct (39.0-53.0) % RDW (11.5-15.5) % Lymphocytes # (1.0-4.8) k/uL ABG pH (7.35-7.45) ABG HCO3 (21-25) mmol/L ABG Total CO2 (19-24) mmol/L ABG O2 Saturation (94-97) % Sodium (137-145) mmol/L Creatinine (0.66-1.25) mg/dL Glucose (74-99) mg/dL POC Glucose (mg/dL) 173 H (70-110) mg/dL Calcium (8.4-10.2) mg/dL
[2023-10-02 12:36] VITALS: BMI 29.1
--- NOTE | 2023-10-02 14:47 | CDI ---
Documentation Clarification Form Date: 10/02/2023 12:55:03 PM From: Kim Posey RN CCDS Phone: [phone] Admit Date: 09/08/2023 12:27:00 AM Patient Name: Romel Malin Visit Number: [id number] Discharge Date: ATTENTION: The Clinical Documentation Specialists (CDI) and [facility] Coding Staff appreciate your assistance in clarifying documentation. Please respond to the clarification below the line at the bottom and electronically sign. The CDI & [facility] Coding staff will review the response and follow-up if needed. Please note: Queries are made part of the Legal Health Record. If you have any questions, please contact the author of this message via ITS. Doctor: Sheet Conflicting documentation has been found in the medical record. As attending physician, please provide clarification. Stage one pressure ulcer, 1cm near rectum is documented 09/15, Medicine progress note. Stage three coccyx pressure ulcer is documented 09/28, Nursing wound assessment. History/Risk Factors: 67 year old male presents to the ED as a transfer from [place] for DKA, Hypotension, shock and respiratory failure. Medical history: CAD, DM2, [place] and Seizure disorder. HP, 09/07 Clinical Indicators: 09/15 10/01 Medicine progress notes: Stage 1 rectal pressure ulcer 09/28 10/01 Nursing wound assessment: Coccyx pressure injury: Stage 3, Necrosis amount 1 25%, Necrossis Type adherent slough, Wound margins distinct. Trish wound texture excoriation, trish-wound moisture maceration. Trish wound color erythema, Drainage purulent, Drainage amount small, drainage odor foul odor, dressing dry and intact reinforced. Treatment: Foam border, Specialty bed, Turning Q2H, Z Guard BID PRN, Please clarify which diagnosis is most appropriate: [ x ] Stage 1 pressure ulcer, 1cm near rectum [ ] Stage 3 coccyx pressure ulcer [ ] Stage 1 pressure ulcer, 1cm near rectum and Stage 3 coccyx pressure ulcer [ ] Other (please specify) [ ] Unable to determine (Template Last Revised: May 2020) MTDD
--- NOTE | 2023-10-02 15:05 | P.PN ---
Subjective Progress Note Date: 10/01/23 Principal diagnosis: Reason for follow-up is fever Patient is a 67-year-old male with a past medical history significant for coronary disease diabetes mellitus LA seizure disorder history of diabetic foot infection status post bilateral big toe amputation presenting to the hospital with unresponsiveness patient was initially hypothermic subsequently started spiking fever initial workup with a chest x-ray and urine was negative.Patient is status post tracheostomy on 09/26/2023.Patient is status post colonoscopy completed on 09/28/2021 for with no evidence of any bleeding, colon was reported normal On today's evaluation that is 10/01/2023, Patient is afebrile patient is currently on ventilator through the trach FiO2 is currently stable at 40% no significant purulent secretion through the ET diarrhea or any other changes reported by nursing staff. Patient white count is normalized to 8.5, creatinine is 2.45 Objective - Vital Signs Vital signs: Vital Signs Temp 98.3 F 10/01/23 08:00 Pulse 82 10/01/23 12:00 Resp 22 10/01/23 12:00 BP 145/74 10/01/23 12:00 Pulse Ox 96 10/01/23 12:00 FiO2 40 10/01/23 12:00 Intake & Output 09/30/23 10/01/23 10/01/23 18:59 06:59 18:59 Intake Total 1036 606 298 Output Total 5505 12 Balance -4469 594 298 Weight 108.8 kg 108 kg Intake: IV 376 276 138 0.9 sodium chloride 240 240 120 Anidulafungin 100 mg In 100 Sodium Chloride 0.9% 100 ml @ 84 mls/hr IVPB DAILY [facility] Rx#:[id number] Pressure Bag 36 36 18 Tube Feeding 70 270 160 Hemodialysis 500 Other 90 60 Output: Urine 5 12 Hemodialysis 3000 Hemodialysis Net Amount 2500 Other: Voiding Method Indwelling Catheter Indwelling Catheter Indwelling Catheter # Bowel Movements 1 ABP, PAP, CO, CI - Last Documented Arterial Blood Pressure 162/60 - Exam GENERAL DESCRIPTION: An elderly male intubated on the vent through the trach RESPIRATORY SYSTEM: Unlabored breathing , decreased breath sounds at bases HEART: S1 S2 regular rate and rhythm , ABDOMEN: Soft , no tenderness EXTREMITIES: Swelling to the leg but no redness - Labs CBC & Chem 7: 10/02/23 04:45 07/25/24 04:45 Labs: Abnormal Lab Results - Last 24 Hours (Table) 09/30/23 09/30/23 10/01/23 Range/Units 17:58 23:58 05:10 RBC 3.15 L (4.30-5.90) m/uL Hgb 9.0 L (13.0-17.5) gm/dL Hct 28.4 L (39.0-53.0) % RDW 16.3 H (11.5-15.5) % Lymphocytes # 0.5 L (1.0-4.8) k/uL ABG O2 Saturation (94-97) % Sodium (137-145) mmol/L Carbon Dioxide (22-30) mmol/L Creatinine (0.66-1.25) mg/dL Glucose (74-99) mg/dL POC Glucose (mg/dL) 140 H 146 H (70-110) mg/dL Calcium (8.4-10.2) mg/dL 10/01/23 10/01/23 10/01/23 Range/Units 05:10 05:27 05:29 RBC (4.30-5.90) m/uL Hgb (13.0-17.5) gm/dL Hct (39.0-53.0) % RDW (11.5-15.5) % Lymphocytes # (1.0-4.8) k/uL ABG O2 Saturation 98.6 H (94-97) % Sodium 131 L (137-145) mmol/L Carbon Dioxide 20 L (22-30) mmol/L Creatinine 2.45 H (0.66-1.25) mg/dL Glucose 115 H (74-99) mg/dL POC Glucose (mg/dL) 122 H (70-110) mg/dL Calcium 7.5 L (8.4-10.2) mg/dL 10/01/23 Range/Units 11:45 RBC (4.30-5.90) m/uL Hgb (13.0-17.5) gm/dL Hct (39.0-53.0) % RDW (11.5-15.5) % Lymphocytes # (1.0-4.8) k/uL ABG O2 Saturation (94-97) % Sodium (137-145) mmol/L Carbon Dioxide (22-30) mmol/L Creatinine (0.66-1.25) mg/dL Glucose (74-99) mg/dL POC Glucose (mg/dL) 145 H (70-110) mg/dL Calcium (8.4-10.2) mg/dL Assessment and Plan (1) Fever Current Visit: Yes Status: Acute Code(s): R50.9 - FEVER, UNSPECIFIED SNOMED Code(s): 876076054 (2) Pneumonia Current Visit: Yes Status: Acute Code(s): J18.9 - PNEUMONIA, UNSPECIFIED ORGANISM SNOMED Code(s): 495241868 (3) Diarrhea Current Visit: Yes Status: Acute Code(s): R19.7 - DIARRHEA, UNSPECIFIED SNOMED Code(s): 84577964 Plan: 1patient with an episode of less responsiveness and concern for possible asp iration but the patient has been transferred back to the ICU patient is status post bronchoscopy and cultures are currently growing Lisa albicans, patient has completed course of Zosyn and has been discontinued as of 09/29/2023 2patient did have a new fever source likely catheter associated UTI with urine growing yeast, the patient is on amiodarone and cannot use Diflucan, patient did have normalization of the white count, to continue short course of Eraxis Dictation was produced using [employer] dictation software. please excuse any grammatical, word or spelling errors. Time with Patient: Less than 30
--- NOTE | 2023-10-02 15:06 | P.PN ---
Subjective Progress Note Date: 10/02/23 Principal diagnosis: Reason for follow-up is fever Patient is a 67-year-old male with a past medical history significant for coronary disease diabetes mellitus [place] seizure disorder history of diabetic foot infection status post bilateral big toe amputation presenting to the hospital with unresponsiveness patient was initially hypothermic subsequently started spiking fever initial workup with a chest x-ray and urine was negative.Patient is status post tracheostomy on 09/26/2023.Patient is status post colonoscopy completed on 09/28/2021 for with no evidence of any bleeding, colon was reported normal On today's evaluation that is 10/02/2023, patient has been afebrile, patient is on the ventilator through the trach FiO2 stable at 40% no purulent secretions through the ET diarrhea or any other changes reported patient is hemodynamically stable not requiring repeat support mentation remains to be an issue. Patient white count normal at 7.5, creatinine is 2.20 Objective - Vital Signs Vital signs: Vital Signs Temp 99.5 F 10/02/23 12:00 Pulse 80 10/02/23 14:00 Resp 24 10/02/23 14:00 BP 151/77 10/02/23 07:00 Pulse Ox 98 10/02/23 14:00 FiO2 40 10/02/23 12:00 Intake & Output 10/01/23 10/02/23 10/02/23 18:59 06:59 18:59 Intake Total 1266 876 261 Output Total 6500 17 10 Balance -5234 859 251 Weight 105.3 kg 105.3 kg Intake: IV 276 276 261 0.9 sodium chloride 240 240 140 Anidulafungin 100 mg In 100 Sodium Chloride 0.9% 100 ml @ 84 mls/hr IVPB DAILY [facility] Rx#:[id number] Pressure Bag 36 36 21 Tube Feeding 400 480 Hemodialysis 500 Other 90 120 Output: Urine 0 17 10 Hemodialysis 3500 Hemodialysis Net Amount 3000 Other: Voiding Method Indwelling Catheter Indwelling Catheter Indwelling Catheter ABP, PAP, CO, CI - Last Documented Arterial Blood Pressure 183/51 - Exam GENERAL DESCRIPTION: An elderly male intubated on the vent through the trach RESPIRATORY SYSTEM: Unlabored breathing , decreased breath sounds at bases HEART: S1 S2 regular rate and rhythm , ABDOMEN: Soft , no tenderness EXTREMITIES: Swelling to the leg but no redness - Labs CBC & Chem 7: 10/02/23 04:45 10/02/23 04:45 Labs: Abnormal Lab Results - Last 24 Hours (Table) 10/01/23 10/01/23 10/02/23 Range/Units 17:56 23:32 04:45 RBC 2.90 L (4.30-5.90) m/uL Hgb 8.3 L (13.0-17.5) gm/dL Hct 25.9 L (39.0-53.0) % RDW 16.0 H (11.5-15.5) % Lymphocytes # 0.4 L (1.0-4.8) k/uL ABG pH (7.35-7.45) ABG HCO3 (21-25) mmol/L ABG Total CO2 (19-24) mmol/L ABG O2 Saturation (94-97) % Sodium (137-145) mmol/L Creatinine (0.66-1.25) mg/dL Glucose (74-99) mg/dL POC Glucose (mg/dL) 166 H 189 H (70-110) mg/dL Calcium (8.4-10.2) mg/dL 10/02/23 10/02/23 10/02/23 Range/Units 04:45 05:33 05:40 RBC (4.30-5.90) m/uL Hgb (13.0-17.5) gm/dL Hct (39.0-53.0) % RDW (11.5-15.5) % Lymphocytes # (1.0-4.8) k/uL ABG pH 7.46 H (7.35-7.45) ABG HCO3 30 H (21-25) mmol/L ABG Total CO2 31 H (19-24) mmol/L ABG O2 Saturation 98.6 H (94-97) % Sodium 132 L (137-145) mmol/L Creatinine 2.20 H (0.66-1.25) mg/dL Glucose 162 H (74-99) mg/dL POC Glucose (mg/dL) 173 H (70-110) mg/dL Calcium 7.3 L (8.4-10.2) mg/dL 10/02/23 Range/Units 11:34 RBC (4.30-5.90) m/uL Hgb (13.0-17.5) gm/dL Hct (39.0-53.0) % RDW (11.5-15.5) % Lymphocytes # (1.0-4.8) k/uL ABG pH (7.35-7.45) ABG HCO3 (21-25) mmol/L ABG Total CO2 (19-24) mmol/L ABG O2 Saturation (94-97) % Sodium (137-145) mmol/L Creatinine (0.66-1.25) mg/dL Glucose (74-99) mg/dL POC Glucose (mg/dL) 191 H (70-110) mg/dL Calcium (8.4-10.2) mg/dL Assessment and Plan (1) Fever Current Visit: Yes Status: Acute Code(s): R50.9 - FEVER, UNSPECIFIED SNOMED Code(s): 330194055 (2) Pneumonia Current Visit: Yes Status: Acute Code(s): J18.9 - PNEUMONIA, UNSPECIFIED ORGANISM SNOMED Code(s): 865570276 (3) Diarrhea Current Visit: Yes Status: Acute Code(s): R19.7 - DIARRHEA, UNSPECIFIED SNOMED Code(s): 85933233 Plan: 1patient with an episode of less responsiveness and concern for possible aspiration but the patient has been transferred back to the ICU patient is status post bronchoscopy and cultures are currently growing Lisa albicans, patient has completed course of Zosyn and has been discontinued as of 09/29/2023 2patient with catheter associated UTI with urine growing yeast, the patient is on amiodarone and cannot use Diflucan, patient seem to have responded to Eraxis As his white count has normalized we will continue to finish a 7-day course of Eraxis Dictation was produced using [employer] software. please excuse any grammatical, word or spelling errors. Time with Patient: Less than 30
[2023-10-02 16:05] VITALS: PULSE 81; TEMP 100.3
[2023-10-02] MEDS: MORPHINE SULFATE (100 MG/2 ML) 100 MG in SODIUM CHLORIDE 0.9% 100 ML IV SCH (17:48)
[2023-10-02] MEDS: LORazepam 2 MG/ML INJ IV PRN (18:17)
[2023-10-02] MEDS: MORPHINE SULFATE 2 MG/ML SYRINGE IV PRN (18:18)
[2023-10-02 18:36] VITALS: RESP 25
--- NOTE | 2023-10-03 10:52 | P.DS ---
Providers Date of admission: 09/08/23 00:27 Attending physician: Weston Kwok MD Consults: 09/08/23 00:26 Consult Physician Routine Consulting Provider: Michael Esquivel Consult Reason/Comments: icu Do you want consulting provider notified?: Yes 09/09/23 10:00 Consult Physician Routine Consulting Provider: Edvin Espinoza Consult Reason/Comments: unresponsive on vent, no sedation Do you want consulting provider notified?: Already Contacted 09/11/23 09:41 Consult Physician Routine Consulting Provider: John Singh Consult Reason/Comments: Pneumonia, sepsis Do you want consulting provider notified?: Yes 09/21/23 08:39 Consult Physician Routine Consulting Provider: Iraida Mayo Consult Reason/Comments: Low urine output Do you want consulting provider notified?: Yes 09/22/23 10:24 Consult Physician Routine Consulting Provider: Barry Stephenson Consult Reason/Comments: Temporary HD catheter placement Do you want consulting provider notified?: Already Contacted 09/25/23 09:00 Consult Physician Routine Consulting Provider: Danilo Weeks Consult Reason/Comments: Trach and PEG Do you want consulting provider notified?: Yes Primary care physician: [facility] Course: Diagnoses: Acute hypoxic and hypercapnic respiratory failure, status post reintubation on 09/19/2023. Suspect aspiration Acute DKA, anion gap closed , resolved Severe anion gap metabolic acidosis secondary to the above, status post bicarb drip. Hypotensive ,hypovolemic shock, status post pressor dependent, resolved Acute hypoxic respiratory failure, status post mechanical ventilator dependent. Acute left lower lobe pneumonia as per pulmonary, sputum culture, polymicrobial, reporting E. coli, Staphylococcus aureus-MSSA, strep agalactiae group B. Dysphagia, delayed swallowing, MBS completed-speech recommending dysphagia level 2 diet, one-to-one supervision, aspiration precautions Rectal pain, wall thickening of the rectum/sigmoid colon reported per CT Fat-containing right inguinal hernia reported per CT Hyperchloremic hypernatremia, resolved. Thrombocytopenia Paroxysmal atrial fibrillation Sepsis, secondary to all the above, resolved. Acute metabolic encephalopathy secondary to all the above, suspect anoxic. Brain CT did not report any acute abnormalities, EEG reported slowing suggestive of severe encephalopathy likely due to toxic metabolic derangement. Acute rhabdomyolysis Acute renal failure, improving Elevated troponin, multifactorial secondary to all the above, ACS ruled out,Type II NJ as per cardiology. Severe dehydration Diabetes mellitus type 2, hemoglobin A1c 11.9 CAD, history of NJ, stent History of seizure disorder, on Keppra Stage I pressure ulcer, 1 cm near rectum Fungal rash, anterior scrotum Hypokalemia hospital course: Romel Malin is a 67-year-old male with past medical history significant for diabetes mellitus, prior toe amputations, hyperlipidemia, coronary artery disease with previous stents, and seizure disorder. He is currently intubated to the mechanical ventilator, unresponsive without any sedation, unable to provide any information. Patient was transferred from [facility] late last night. Apparently, found unresponsive by his girlfriend, and last known well was 24 hours prior. Patient was intubated by EMS on arrival and triaged to [facility]. Initial presentation was consistent with DKA. Subsequently, the patient was transferred to [facility]. Patient is currently in trauma bay 1, he is intubated mechanical ventilator. Chest x-ray on arrival to our facility shows the endotracheal tube in satisfactory position approximately 4 cm above the mahesh. There is an orogastric tube that should be advanced. Right IJ central line catheter appears to terminate at the Cavo atrial junction. No focal infiltrates or evidence of pneumonia. Current ventilator settings are assist-control, respiratory rate 14, tidal volume 500, FiO2 35%, PEEP of 5. He is breathing slightly above set rate. Not on any sedation. Remains unresponsive even to deep painful stimuli. CT of the brain did not show any acute intracranial hemorrhage or mass effect. ABG is consistent with profound metabolic acidosis, with a PaO2 of 204, pCO2 of 25, pH of 7.04. Patient has been given a total of 2 A of bicarb. He is hypotensive and in a shock state, he has been fluid resuscitated with at least 2.5 L crystalloid fluid. No insulin infusion is currently ordered. He remains profoundly hypotensive, and has been started on norepinephrine which is currently infusing at 0.06 mcg/kg/min. CBC: WBC count 8.8, hemoglobin 14.5, hematocrit 50.3, platelets 136. CMP: Sodium 143, potassium 5.2, chloride 115, serum bicarb less than 5, anion gap unmeasurable, BUN 134, creatinine 4.29, glucose 910. Lactic 1.1. LFTs not elevated. Total bilirubin 0.7. Ammonia less than 9. CPK was 882. Troponin 0.084. NT BNP 2720. EKG shows normal sinus rhythm and is nondiagnostic for acute ischemia. Urinalysis positive for glucose and ketones. Urine toxicology screen at outside facility was essentially negative. Serum alcohol less than 10. Patient will be admitted to the intensive care unit once bed available. 09/09/2023 Patient grimaces to pain but does not follow commands. He remains off sedatives. Suspect to be hypoxic encephalopathy. Neurolgy was consulted and advises mentation is likely due to metabolic injury. CT scan of the brain yesterday that showed no midline shift or swelling. Patient anion gap has closed with an anion gap of 6, bicarb 17. Potassium at 3.3. Replacement ongoing per protocol. Blood sugars 879. Insulin IV will be discontinued and will transiotion to Insulin detemir SQ. Patient began to show increased breathing on the mechanical ventilator and was switched to pressure control rate of 20, tidal volume of 500, FiO2 of 35%, and a PEEP of 5. ABG showed pH of 7.4 with a pCO2 of 29 and pO2 of 103. WBC is at 5 with a hemoglobin of 12 and a platelet count of 62. Heparin SQ discontinued. Chest x-ray show atelectatic changes in lung base bilaterally. Sputum is showing 09/09 Patient still encephaolpathic but now opens eyes to command, moves arms independently, only grimaces to pain. Patient still intubated and comfortable on current vent settings. Still not on any sedation. Potassium replacement on going as per protocol but on the uptrend latest at 3.5 . Glucose at the 211 and reddy staining at levels of 200s. On Glucerna 1.5 rate at 30cc/hr via enteral feeding. Insulin increased to 25 units and on sliding scale coverage. Sputum culture grew gram-negative bacillus and presumptive Staph aureus. started on IV Cefepime. WBC 4.7, hemoglobin 11.4, hematocrit 35 and platelet count 49. Blood pressures increase at 140-160/60-80. Started on IV hydralazine 10mg PRN. Afebrile on assessment. Sodium elevated trend at 152. 0.45% normal saline discontinued and start on free water through OG tube. 09/10. Patient seen and examined. Continues to be intubated at the bedside, all questions answered 09/11. Patient seen and examined. Patient extubated this morning, following commands, currently on oxygen via nasal cannula 09/12. Patient seen and examined. Labs done this morning showed WBC 7.6, hemoglobin 10.8, platelet count 90, sodium 149, potassium 3.6, BUN 36, creatinine 1.06. Patient getting chest PT 09/13. Patient seen and examined. Currently on thickened liquid diet. Speech evaluation pending. Decrease fluids. 09/15/2023 telemetry sinus rhythm. Continues on amiodarone, Farxiga. Anticoagulated on Eliquis. Confused this morning, alert and oriented to person, knows he is in the hospital but thinks he is in [place], [place]. Maintaining O2 sat of 94% on 2 L nasal cannula on cefepime and nebulized bronchodilators. Choking on applesauce during speech therapy's evaluation, modified barium swallow ordered. Blood sugars in the low 200s during the night, better controlled this morning, 132. Hemoglobin A1c 11.9. 09/16/2023 MBS results noted-speech therapy recommending ground meats, nectar liquids, no straw, liquids from cup, small bites and sips with direct supervision , sitting upright 90 degrees and ongoing speech therapy. O2 sats improved, 97% on 2 L nasal cannula. Maintained on cefepime as per ID, afebrile, normal WBC. Hemoglobin 10, platelets 146. Potassium 2.9-supplementation and magnesium level ordered. Blood sugars better controlled. Renal function stable. Telemetry sinus rhythm. PT pending. 09/17/2023 Maintained on cefepime.yesterday Ochoa catheter discontinued but patient developed urinary retention and Ochoa catheter reinserted .ongoing lower back and rectal pain. lumbar CT reported no evidence for spinal fracture, moderate degeneration changes without evidence for significant spinal canal stenosis, moderate bilateral L5-S1 and L4-L5 neuroforaminal stenosis, bilateral lung consolidation possibly representing atelectasis with superimposed infection not excluded, trace right pleural effusion. Pelvis CT reporting circumferential wall thickening of the rectum/sigmoid colon , prominent mesenteric lymph nodes around the rectum also present direct visualization recommended to rule out mass, colonic diverticulosis, fat-containing right inguinal hernia, no evidence of fracture, mild to moderate bilateral hip osteoarthrosis and moderate degenerative changes of the spine. Vague historian, unsure of last colonoscopy. Denies nausea vomiting. Potassium 3.5-supplemented, renal function stable. 09/18/2023 continues to complain of back and rectal pain. Eliquis remains on hold, general surgery discussing colonoscopy for tomorrow. Renal function stable, Hemoglobin 10.2, platelets 193. Blood sugars controlled. 09/19/2023 Eliquis remains on hold. Patient initially was scheduled for colonoscopy today. patient developed increased difficulty swallowing, bowel prep and colonoscopy canceled by general surgery. General surgery scheduled patient for PEG tube placement for Friday. oxygen requirement increased from 2 to 6 L nasal cannula. [facility] reported O2 sat of 93% on 6 L nasal cannula. Chest x- ray from last night reported right lower lobe infiltrate, minimal right pleural effusion. As the morning progressed, respiratory status declined, BiPAP and ABGs ordered. Upon entering the room to apply BiPAP, patient unresponsive and A team called, intubated and transferred to ICU. 09/19. Patient seen and examined. Dr. Rodriguez took over care from Dr. Kwok. Patient currently intubated and sedated. 09/20. Patient seen and examined. Blood work done this morning showed WBC 9.7, hemoglobin 8.7, platelet count 197, sodium 144, potassium 4.6, BUN 39, creatinine 2.37 09/29/2023 maintained on Zosyn and Eraxis.status post tracheostomy and PEG tube placement .Vent dependent, FiO2 50%/+10 of PEEP. Chest x-ray reporting stable with no change in bibasilar opacities. Currently off of pressors and diprovan. rectal tube with scant red drainage, scheduled for colonoscopy today. Tube feeds on hold. hemoglobin 9.2, platelets 184. Afebrile, WBC 12.1. BUN 34, creatinine 2.8, bicarb 23, scheduled for hemodialysis today. Opens eyes to name. 09/29. Dr. Rodriguez took over care from Dr. Kwok. Patient has been trached and pegged 09/30. Patient seen and examined. Patient currently undergoing dialysis. Family leaning towards hospice 10/01. Patient seen and examined. Continues to be on vent, minimally responsive. 10/03/2023 pt was made comfort care he was on morphine drip pt wass unresponsive pt eventually compounding and finishing supervisor physical exam (prior to expiration) -GENERAL: The patient is unresponsive, looks comfortable HEENT: Pupils are round and equally reacting to light. EOMI. No scleral icterus. Trach collar seen CARDIOVASCULAR: S1 and S2 present. No murmurs, rubs, or gallops. PULMONARY: Chest is clear to auscultation, no wheezing or crackles. ABDOMEN: Soft, nontender, nondistended, normoactive bowel sounds. No palpable organomegaly. PEG tube seen MUSCULOSKELETAL: No joint swelling or deformity. EXTREMITIES: No cyanosis, clubbing, or pedal edema. NEUROLOGICAL: Currently on vent SKIN: No rashes. Patient Condition at Discharge: Critical Plan - Discharge Summary Discharge Rx Participant: No New Discharge Prescriptions: New Ipratropium-Albuterol Nebulize [Duoneb 0.5 mg-3 mg/3 ml Soln] 3 ml INHALATION RT-QID each Nystatin 100,000 Unit/gm Oint [Mycostatin Oint] 1 applic TOPICAL BID each Losartan [Cozaar] 25 mg PO DAILY tab Apixaban [Eliquis] 5 mg PO BID tab Dapagliflozin Propanediol [Farxiga] 10 mg PO DAILY tab Metoprolol Tartrate [Lopressor] 25 mg PO BID tab HYDROcodone/APAP 5-325MG [[place] 5-325] 1 each PO Q6H PRN #12 tab PRN Reason: Pain Cholestyramine (with Sugar) [Questran Packet] 4 gm PO BID@1000,1800 packet Aspirin 81 mg PO DAILY tab Amiodarone [Cordarone] 400 mg PO BID tab INSULIN LISPRO (HumaLOG) [humaLOG] 0 unit SQ ACHS #10 ml Insulin Detemir (Levemir) [Levemir] 15 unit SQ HS each Continue Ascorbic Acid [Vitamin C] 500 mg PO BID Furosemide [Lasix] 20 mg PO DAILY Escitalopram [Lexapro] 10 mg PO DAILY tiZANidine [Zanaflex] 4 mg PO TID Cholecalciferol (Vitamin D3) [Vitamin D3 (1250 Mcg = 50,000 Iu)] 1,250 mcg PO WEEKLY Cetirizine HCl [Zyrtec] 10 mg PO HS Potassium Chloride [Klor-Con M10] 10 meq PO DAILY levETIRAcetam [Keppra] 500 mg PO Q12HR Atorvastatin [Lipitor] 40 mg PO HS Discontinued amLODIPine [Norvasc] 5 mg PO DAILY lisinopriL 40 mg PO HS hydrALAZINE HCL [Apresoline] 50 mg PO TID Isosorbide Mononitrate ER [Imdur] 30 mg PO DAILY carvediloL [Coreg] 25 mg PO BID Clopidogrel [Plavix] 75 mg PO DAILY traZODone HCL [Desyrel] 50 mg PO HS metFORMIN HCL ER [Glucophage XR] 1,000 mg PO W/SUPPER Insulin Glargine,Hum.rec.anlog [Lantus Solostar Pen] 27 units SQ HS Empagliflozin [Jardiance] 10 mg PO DAILY Discharge Medication List Ascorbic Acid [Vitamin C] 500 mg PO BID 09/08/23 [History] Atorvastatin [Lipitor] 40 mg PO HS 09/08/23 [History] Cetirizine HCl [Zyrtec] 10 mg PO HS 09/08/23 [History] Cholecalciferol (Vitamin D3) [Vitamin D3 (1250 Mcg = 50,000 Iu)] 1,250 mcg PO WEEKLY 09/08/23 [History] Escitalopram [Lexapro] 10 mg PO DAILY 09/08/23 [History] Furosemide [Lasix] 20 mg PO DAILY 09/08/23 [History] Potassium Chloride [Klor-Con M10] 10 meq PO DAILY 09/08/23 [History] levETIRAcetam [Keppra] 500 mg PO Q12HR 09/08/23 [History] tiZANidine [Zanaflex] 4 mg PO TID 09/08/23 [History] Amiodarone [Cordarone] 400 mg PO BID tab 09/17/23 [Rx] Apixaban [Eliquis] 5 mg PO BID tab 09/17/23 [Rx] Aspirin 81 mg PO DAILY tab 09/17/23 [Rx] Cholestyramine (with Sugar) [Questran Packet] 4 gm PO BID@1000,1800 packet 09/17/23 [Rx] Dapagliflozin Propanediol [Farxiga] 10 mg PO DAILY tab 09/17/23 [Rx] HYDROcodone/APAP 5-325MG [[place] 5-325] 1 each PO Q6H PRN #12 tab 09/17/23 [Rx] INSULIN LISPRO (HumaLOG) [humaLOG] 0 unit SQ ACHS #10 ml 09/17/23 [Rx] Insulin Detemir (Levemir) [Levemir] 15 unit SQ HS each 09/17/23 [Rx] Ipratropium-Albuterol Nebulize [Duoneb 0.5 mg-3 mg/3 ml Soln] 3 ml INHALATION RT-QID each 09/17/23 [Rx] Losartan [Cozaar] 25 mg PO DAILY tab 09/17/23 [Rx] Metoprolol Tartrate [Lopressor] 25 mg PO BID tab 09/17/23 [Rx] Nystatin 100,000 Unit/gm Oint [Mycostatin Oint] 1 applic TOPICAL BID each 09/17/23 [Rx] Follow up Appointment(s)/Referral(s): Josie Matthew DO [Primary Care Provider] - 1 Week (After discharge from subacute rehab) Activity/Diet/Wound Care/Special Instructions: Medi PH CBC,BMP in 3 days Discharge Disposition: - Preliminary Cause of Preliminary Cause of : sever sepsis , secondary to aspiration pneumonia wth resp failure
--- NOTE | 2023-10-06 13:25 | CDI ---
Documentation Clarification Form Date: 10/06/2023 12:08:01 PM From: Elvi Hollis Phone: Admit Date: 09/08/2023 12:27:00 AM Patient Name: Romel Malin Visit Number: [id number] Discharge Date: 10/03/2023 08:40:00 AM ATTENTION: The Clinical Documentation Specialists (CDI) and [facility] Coding Staff appreciate your assistance in clarifying documentation. Please respond to the clarification below the line at the bottom and electronically sign. The CDI & [facility] Coding staff will review the response and follow-up if needed. Please note: Queries are made part of the Legal Health Record. If you have any questions, please contact the author of this message via ITS. Doctor/Provider: Weston Kwok Rhabdomyolysis is documented H&P Note. Additional clarification regarding the type of rhabdomyolysis is requested. History/Risk Factors: 67yo M, DKA, AH/HRF on vent, sepsis w shock, PNA d/t E Coli, MSSA and Strep B, PAF, ATN, HLD, CSHF, hyperchloremic,hypernatremia,thrombocytopenia, NSTEMI II, CAD w Hx [place]/stent, hypokalemia, anox/met encephalopathy, dehydration Clinical Indicators: found unresponsive by his girlfriend, and last known well was 24 hours prior; confusion, dehydration CPK: 09/07 [phone] 09/10 [phone] 09/11 81 A1c11.9 [id number] 09/06 UA positive for glucose and ketones Treatment: SS insulin; currently off propofol and the mental status being monitored; receiving IV fluid hydration of half-normal saline; bicarb drip. Pt made DNR/ palliative care and . Please clarify the type of rhabdomyolysis, if known: [ X ] Traumatic rhabdomyolysis due to prolonged immobility [ ] Non traumatic rhabdomyolysis due to infection (please specify) [ ] Other, please specify [ ] Unable to Determine (Template Last Revised: May 2020) MTDD
--- NOTE | 2023-10-06 13:50 | CDI ---
Documentation Clarification Form Date: 10/06/2023 01:40:09 PM From: Elvi Hollis Phone: Admit Date: 09/08/2023 12:27:00 AM Patient Name: Romel Malin Visit Number: [id number] Discharge Date: 10/03/2023 08:40:00 AM ATTENTION: The Clinical Documentation Specialists (CDI) and [facility] Coding Staff appreciate your assistance in clarifying documentation. Please respond to the clarification below the line at the bottom and electronically sign. The CDI & [facility] Coding staff will review the response and follow-up if needed. Please note: Queries are made part of the Legal Health Record. If you have any questions, please contact the author of this message via ITS. 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 Additional information regarding the acuity of CHF is requested. History/Risk Factors: 67yo M, DKA, AH/HRF on vent, sepsis w shock, PNA d/t E Coli, MSSA and Strep B, PAF, ATN, HLD, CSHF, hyperchloremic, hypernatremia, thrombocytopenia, NSTEMI II, CAD w Hx MD/stent, hypokalemia, anox/met encephalopathy, dehydration, Rhabdomyolysis Clinical Indicators: VS/Pulse OX: 96 BNP: 2720 Echo: Technically difficultstudy. Limitedstudy, overall left ventricle systolic function moderatelyimpaired. Very limitedDopplerstudy Chest X Ray: 09/08 ET tube tip just below the level of the medial clavicular heads. NG tubecourses below the diaphragm. Right IJ CVC tip lower SVC. Slightly lordotic exam partially obscure the heart margins. Heart upper limits of normal in size. Relative upper lung lucencysuggestingunderlyingemphysema. Mild patchy medial basilaropacities,probablyareas ofatelectasis. Nopleural effusion. Treatment: Continue current cardiac medications. Continuetelemetry monitoring. Patient is currently stable from a cardiac standpoint. Pt was started on HD via temp femoral cath. In your professional opinion, can you please clarify the acuity of CHF if known? [ ] Chronic Systolic Heart Failure (reduced EF) [ ] Acute on Chronic Systolic Heart Failure (reduced EF) [ ] Other, please specify [ ] Unable to determine (Template Last Revised: April 2020) MTDD
--- NOTE | 2023-10-08 19:12 | CDI ---
Documentation Clarification Form Date: From: Elvi Hollis Phone: Admit Date: 09/08/2023 12:27:00 AM Patient Name: Romel Malin Visit Number: [id number] Discharge Date: 10/03/2023 08:40:00 AM ATTENTION: The Clinical Documentation Specialists (CDI) and [facility] Coding Staff appreciate your assistance in clarifying documentation. Please respond to the clarification below the line at the bottom and electronically sign. The CDI & [facility] Coding staff will review the response and follow-up if needed. Please note: Queries are made part of the Legal Health Record. If you have any questions, please contact the author of this message via ITS. Doctor/Provider: Travis Ruelas Thank you for acknowledging the previous query; however, it lacked clarification. 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 Additional information regarding the acuity ofCHFis requested. History/Risk Factors: 67yo M,DKA, AH/HRF on vent,sepsiswshock,PNA d/t E coli,MSSAandStrepB,PAF,ATN,HLD, CSHF,hyperchloremic,hypernatremia, thrombocytopenia,anox/met enceph,dehydration,Rhabdo, NSTEMIII,CADwHx TN/stent,hypokalemia Clinical Indicators: VS/Pulse OX: 96 BNP: 2720 Echo: Technically difficultstudy. Limitedstudy, overall LV systolic function moderatelyimpaired. Very limitedDopplerstudy Chest X Ray: 09/08 ET tube tip just below the level of the medial clavicular heads.NG tubecourses below the diaphragm. Right IJ CVC tip lower SVC. Slightly lordotic exam partially obscure the heart margins. Heart upper limits of normal in size. Relative upper lung lucencysuggestingunderlyingemphysema. Mild patchy medial basilaropacities,probablyareas ofatelectasis. Nopleural effusion. Treatment: Continue current cardiac medications. Continuetelemetry monitoring. Patient is currently stable from a cardiac standpoint. Pt was startedon HDvia temp femoral cath. In your professional opinion, can you please clarify the acuity ofCHFif known? [ x]Chronic Systolic Heart Failure(reducedEF) [ ]Acute on Chronic Systolic Heart Failure(reducedEF) [ ] Other, please specify [ ] Unable to determine (Template LastRevised: April 2020) MTDD
== END 2023-10-03 08:40 | disposition expired | DRG 4 ==
LOC: EC 22:56 → 2SICU 09-08 00:27 → 3SCARD 09-13 15:55 → 2SICU 09-19 12:07
PROVIDERS: ADMIT Family Medicine; ATTEND Family Medicine
PROC: 3E043XZ Introduction of Vasopressor into Central Vein, Percutaneous Approach (ICD-10-PCS; 2023-09-07)
PROC: 5A1955Z Respiratory Ventilation, Greater than 96 Consecutive Hours (ICD-10-PCS; 2023-09-08)
PROC: 02HV33Z Insertion of Infusion Device into Superior Vena Cava, Percutaneous Approach (ICD-10-PCS; 2023-09-08)
PROC: 03HY32Z Insertion of Monitoring Device into Upper Artery, Percutaneous Approach (ICD-10-PCS; 2023-09-08)
PROC: 4A133B1 Monitoring of Arterial Pressure, Peripheral, Percutaneous Approach (ICD-10-PCS; 2023-09-08)
PROC: 4A133J1 Monitoring of Arterial Pulse, Peripheral, Percutaneous Approach (ICD-10-PCS; 2023-09-08)
PROC: 3E033RZ Introduction of Antiarrhythmic into Peripheral Vein, Percutaneous Approach (ICD-10-PCS; 2023-09-08)
PROC: 3E0G76Z Introduction of Nutritional Substance into Upper GI, Via Natural or Artificial Opening (ICD-10-PCS; 2023-09-09)
PROC: 5A1955Z Respiratory Ventilation, Greater than 96 Consecutive Hours (ICD-10-PCS; 2023-09-19)
PROC: 0BH18EZ Insertion of Endotracheal Airway into Trachea, Via Natural or Artificial Opening Endoscopic (ICD-10-PCS; 2023-09-19)
PROC: 0B9J8ZX Drainage of Left Lower Lung Lobe, Via Natural or Artificial Opening Endoscopic, Diagnostic (ICD-10-PCS; 2023-09-19)
PROC: 0B9C8ZX Drainage of Right Upper Lung Lobe, Via Natural or Artificial Opening Endoscopic, Diagnostic (ICD-10-PCS; 2023-09-19)
PROC: 0B9G8ZX Drainage of Left Upper Lung Lobe, Via Natural or Artificial Opening Endoscopic, Diagnostic (ICD-10-PCS; 2023-09-19)
PROC: 0B9D8ZX Drainage of Right Middle Lung Lobe, Via Natural or Artificial Opening Endoscopic, Diagnostic (ICD-10-PCS; 2023-09-19)
PROC: 0B9H8ZX Drainage of Lung Lingula, Via Natural or Artificial Opening Endoscopic, Diagnostic (ICD-10-PCS; 2023-09-19)
PROC: 0B9F8ZX Drainage of Right Lower Lung Lobe, Via Natural or Artificial Opening Endoscopic, Diagnostic (ICD-10-PCS; 2023-09-19)
PROC: 06HY33Z Insertion of Infusion Device into Lower Vein, Percutaneous Approach (ICD-10-PCS; 2023-09-22)
PROC: 5A1D70Z Performance of Urinary Filtration, Intermittent, Less than 6 Hours Per Day (ICD-10-PCS; 2023-09-22)
PROC: 0DH63UZ Insertion of Feeding Device into Stomach, Percutaneous Approach (ICD-10-PCS; 2023-09-26)
PROC: 3E0H76Z Introduction of Nutritional Substance into Lower GI, Via Natural or Artificial Opening (ICD-10-PCS; 2023-09-26)
PROC: 30233N1 Transfusion of Nonautologous Red Blood Cells into Peripheral Vein, Percutaneous Approach (ICD-10-PCS; 2023-09-26)
PROC: 0B110F4 Bypass Trachea to Cutaneous with Tracheostomy Device, Open Approach (ICD-10-PCS; principal; 2023-09-26 10:00)
PROC: 0DJD8ZZ Inspection of Lower Intestinal Tract, Via Natural or Artificial Opening Endoscopic (ICD-10-PCS; 2023-09-29)
DX: A41.51 Sepsis due to Escherichia coli [E. coli] (principal); T83.511A Infection and inflammatory reaction due to indwelling urethral catheter, initial encounter; B37.49 Other urogenital candidiasis; E11.10 Type 2 diabetes mellitus with ketoacidosis without coma; R65.21 Severe sepsis with septic shock; N17.0 Acute kidney failure with tubular necrosis; J69.0 Pneumonitis due to inhalation of food and vomit; J15.5 Pneumonia due to Escherichia coli; E43 Unspecified severe protein-calorie malnutrition; J15.211 Pneumonia due to Methicillin susceptible Staphylococcus aureus; I21.A1 Myocardial infarction type 2; J15.3 Pneumonia due to streptococcus, group B; J96.01 Acute respiratory failure with hypoxia; J96.02 Acute respiratory failure with hypercapnia; G93.41 Metabolic encephalopathy; G93.1 Anoxic brain damage, not elsewhere classified; I42.8 Other cardiomyopathies; E87.0 Hyperosmolality and hypernatremia; B37.89 Other sites of candidiasis; I45.89 Other specified conduction disorders; E87.1 Hypo-osmolality and hyponatremia; E87.3 Alkalosis; K92.1 Melena; I50.22 Chronic systolic (congestive) heart failure; T79.6XXA Traumatic ischemia of muscle, initial encounter; Z66 Do not resuscitate; Z51.5 Encounter for palliative care; R57.1 Hypovolemic shock; G40.909 Epilepsy, unspecified, not intractable, without status epilepticus; Z79.4 Long term (current) use of insulin; E11.51 Type 2 diabetes mellitus with diabetic peripheral angiopathy without gangrene; D69.6 Thrombocytopenia, unspecified; I48.0 Paroxysmal atrial fibrillation; Z89.412 Acquired absence of left great toe; Z89.411 Acquired absence of right great toe; Z79.02 Long term (current) use of antithrombotics/antiplatelets; R13.10 Dysphagia, unspecified; L89.891 Pressure ulcer of other site, stage 1; E88.09 Other disorders of plasma-protein metabolism, not elsewhere classified; E83.39 Other disorders of phosphorus metabolism; E83.41 Hypermagnesemia; E87.8 Other disorders of electrolyte and fluid balance, not elsewhere classified; E66.9 Obesity, unspecified; Z79.84 Long term (current) use of oral hypoglycemic drugs; E78.5 Hyperlipidemia, unspecified; B95.61 Methicillin susceptible Staphylococcus aureus infection as the cause of diseases classified elsewhere; E87.6 Hypokalemia; M16.0 Bilateral primary osteoarthritis of hip; D64.9 Anemia, unspecified; N50.89 Other specified disorders of the male genital organs; B95.4 Other streptococcus as the cause of diseases classified elsewhere; K40.90 Unilateral inguinal hernia, without obstruction or gangrene, not specified as recurrent; B36.8 Other specified superficial mycoses; E86.0 Dehydration; I25.10 Atherosclerotic heart disease of native coronary artery without angina pectoris; R33.8 Other retention of urine; R15.9 Full incontinence of feces; R19.7 Diarrhea, unspecified; Y73.1 Therapeutic (nonsurgical) and rehabilitative gastroenterology and urology devices associated with adverse incidents; I25.2 Old myocardial infarction; Z95.5 Presence of coronary angioplasty implant and graft; Z68.29 Body mass index [BMI] 29.0-29.9, adult; Z79.899 Other long term (current) drug therapy; Z79.01 Long term (current) use of anticoagulants; Z79.82 Long term (current) use of aspirin
CPT/HCPCS: 31500; 36410; 36415; 36556; 36600; 43246; 45378; 70450; 71045; 72131; 72192; 74230; 76770; 76937; 78278; 80048; 80051; 80053; 80143; 80179; 80320; 81001; 82140; 82533; 82550; 82565; 82607; 82805; 82947; 83036; 83605; 83690; 83735; 83880; 84100; 84132; 84145; 84443; 84484; 84520; 85025; 85027; 85379; 85610; 85730; 86140; 86706; 86850; 86900; 86901; 86920; 87040; 87070; 87077; 87086; 87102; 87116; 87186; 87205; 87206; 87324; 87340; 87496; 87498; 87502; 87529; 87634; 87635; 87636; 87798; 88108; 88305; 89050; 90935; 93005; 93306; 94002; 94003; 94640; 94660; 94760; 95822; 96361; 96365; 96375; 96376; 99291